=== PATIENT | female | born 1955 | race Caucasian/White ===

== ENCOUNTER 2023-07-05 22:54 | Inpatient (IN) | payer MEDICARE, OTHER, SELFPAY ==
[2023-07-05] VITALS (7 sets, daily range): BP systolic 102–132; BP diastolic 47–106; BMI 45.6
[2023-07-05 18:09] LABS: % Basophils 1.3 % (0-2); % Immature Granulocytes 0.4 % (0-0.5); % Lymphocytes 20.6 % (20.5-51.1); % Monocytes 7.7 % (1.7-9.3); Absolute Basophils 0.1 10^3/uL (0-0.2); Absolute Eosinophils 0.1 10^3/uL (0-0.7); Absolute Lymphocytes 1.6 10^3/uL (1.2-3.4); Absolute Monocytes 0.6 10^3/uL (0.1-0.6); Absolute Neutrophils 5.3 10^3/uL (1.4-6.5); Hematocrit 46.3 % (37.0-47.0); Hemoglobin 15.1 g/dL (12.0-16.0); Mean Corp Hgb Conc. 32.6 g/dL (33.0-37.0); Mean Corpuscular Hgb 30.7 pg (27.0-31.0); Mean Corpuscular Volume 94.1 fL (81.0-99.0); Mean Platelet Volume 9.9 fL (7.4-10.4); Nucleated Red Blood Cells % 0 %; Platelet Count 384 10^3/uL (130-400); Red Blood Cell Count 4.92 10^6/uL (4.20-5.40); Red Cell Dist. Width 16.8 % (11.5-14.5); White Blood Cell Count 7.8 10^3/uL (4.8-10.8)
[2023-07-05 18:40] LABS: COVID-19 Antigen Negative (Negative)
[2023-07-05 19:38] LABS: NT-proBNP 7880 pg/ml; Troponin I < 0.012 ng/ml
[2023-07-05 20:18] LABS: ALT (SGPT) 17 U/L (0-35); AST (SGOT) 26 U/L (14-36); Albumin 3.6 g/dl (3.5-5.0); Alkaline Phosphatase 107 U/L (38-126); Blood Urea Nitrogen 26 mg/dl (7-17); Calcium 9.2 mg/dl (8.4-10.2); Carbon Dioxide 27 mmol/L (22-30); Chloride 96 mmol/L (98-107); Estimated Creatinine Clearance 73 ml/min; Glucose 96 mg/dl (70-99); Potassium 2.7 mmol/L (3.5-5.1); Sodium 132 mmol/L (135-145); Total Bilirubin 1.9 mg/dl (0.2-1.3); Total Protein 7.6 g/dl (6.3-8.2); eGFR > 60.00
--- NOTE | 2023-07-05 20:19 | ED.GENMED ---
History of Present Illness
General
Chief Complaint: Blood Pressure Problem
Time Seen by Provider: 07/05/23 17:29
Travel History
Have you had any contact with someone who has COVID-19?: No
Do you have any symptoms of coronavirus? Fever > 100 degrees, chills, cough, shortness of breath, sore throat, loss of taste or smell, muscle aches, or headache?: No
History of Present Illness
History of Present Illness:
68-year-old female with history of A-fib, mitral stenosis, HFpEF, hypertension, hyperlipidemia, and sick sinus syndrome status post pacemaker placement presents to the emergency department for evaluation of general malaise and overall weakness. She
states she began to feel weak over the weekend, this worsened after taking a dose of metolazone on Wednesday at the direction of her human resources operations director. She notes that she apparently used to be on a total of 160 mg of furosemide daily, at some point last
month this was decreased to 80 mg daily and she was provided with metolazone to use on a as needed basis due to weight gain. After use of metolazone she reported a rapid 10 pound weight loss. She does report ongoing fatigue and shortness of
breath. Initial BP for EMS was in the 60s, improved with gentle IV fluid resuscitation. On arrival the patient's blood pressures have improved however she is noted to be hypoxic on room air at 89%.
Past History
Past History
ED Past Medical History: Asthma, Cancer (breast), CHF, CVA (TIA), HTN, Other (RAMY) and Other (mvp)
ED Past Surgical History: Other (gall bladder, lymph nodes left breast)
Social History
Tobacco: Non-smoker
Alcohol: None
Drug: None
Personal: Single
Living: with family
Employment: Not employed
Review of Systems
Review of Systems
Allergies reviewed?: Yes
All Other Systems: ROS reviewed and negative except as documented in HPI and ROS
Phy Exam
Physical Exam
Physical Exam:
GEN: Well appearing, NAD, WDWN
Eyes: PERRLA, EOMs intact, no scleral icterus
HENT: NCAT, oral mucosa moist, no JVD
Lungs: CTAB, no wheezes, rales, rhonchi, normal chest wall excursion
Cardiac: RRR, no M/R/G, no peripheral edema. Radial pulses 2+ bilat
Abdomen: Obesity limits exam, soft and nontender
Neuro: AO x 3
MSK: No gross deformity or ecchymosis. No edema.
Skin: No rashes, petechiae. Normal color, no pallor or jaundice.
Psych: Calm, cooperative, proper hygiene
Course
Orders/Labs/Results
Orders:
Orders
07/05/23 17:18
EKG [Electrocardiogram (*1)] Urgent
Reason for Study: Fatigue / Weakness
07/05/23 17:19
EKG- Treatment ONCE
07/05/23 17:40
CR Chest - 2 Views Urgent
Comment:
Reason For Exam: hypoxia
07/05/23 17:55
COVID-19 Antigen Urgent
Source: Nasal Swab
Complete Blood Count/With Diff Urgent
Influenza A+B Rapid Molecular Urgent
ALISTAIR Source: Nasal Swab
Specimen Description:
07/05/23 19:00
NT-proBNP Urgent
Troponin I Urgent
07/05/23 19:29
Comprehensive Metabolic Panel Urgent
07/05/23 20:21
Magnesium Sulfate 2 Gram/50 ml [Magnesium Sulfate] 2 gram in 50 ml IV NOW
Potassium Chloride [KCl] 40 meq PO NOW STA
Potassium Chloride [KCl] 20 meq 0.9% Sodium Chloride 150 ml [Nss] 150 ml IV NOW
Abnormal Lab Results
07/05/23 07/05/23
17:55 19:29
MCHC 32.6 L g/dL
(33.0-37.0)
RDW 16.8 H %
(11.5-14.5)
Sodium 132 L mmol/L
(135-145)
Potassium 2.7 L* mmol/L
(3.5-5.1)
Chloride 96 L mmol/L
(98-107)
BUN 26 H mg/dl
(7-17)
Total Bilirubin 1.9 H mg/dl
(0.2-1.3)
07/05/23 17:55
07/05/23 19:29
Vital Signs
Initial and Last Documented VS:
Initial Vital Signs
Temp Pulse Resp BP Pulse Ox
97.5 F 75 20 125/78 89
07/05/23 17:15 07/05/23 17:15 07/05/23 17:15 07/05/23 17:15 07/05/23 17:15
Last Documented Vital Signs
Temp Pulse Resp BP Pulse Ox
97.5 F 76 23 116/87 93
07/05/23 17:15 07/05/23 19:30 07/05/23 19:30 07/05/23 18:26 07/05/23 19:30
MDM/Problems Addressed
MDM/Problems Addressed:
68-year-old female presenting with general malaise and weakness, noted to be hypotensive on arrival of EMS. Her symptoms are likely on the basis of excess diuresis due to recent metolazone use. Her hypokalemia and mild increase in creatinine would
support this. Chest x-ray shows no evidence for acute CHF, elevated BNP may be more on the basis of acute renal injury but it is reflective of acute CHF however the patient is noted to be mildly hypoxic on room air. Does not sound wet on lung exam
to suggest pulmonary edema. Would hesitate to diuresis patient any further at this juncture. No concern for PE as she is anticoagulated. Will treat with gentle IV fluids and electrolyte repletion, admit to the hospitalist service for further
management
Comment
Comment:
Initial EKG independently interpreted by me shows an atrial paced rhythm at a rate of 65
*Critical Care Note
Total Time (30-74mins, 75-104mins- exclusive of procedures): Not Applicable
ED Attending Note
-
Portions of this chart may have been created with voice recognition software.� Occasional wrong word or��sound alike� substitutions may have occurred due to the inherent limitations of voice recognition software.
Discharge Plan
Departure
Patient Disposition: Admit
Date of Disposition: 07/05/23
Time of Disposition: 20:23
Admit to: Telemetry
Presentation/result/management discussed w/ accepting MD/DO: Hospitalist
Discharge Problem:
Acute hypokalemia, Diuresis excessive
Prescriptions:
No Action
montelukast 10 mg Tablet
10 mg PO DAILY
Eliquis 5 mg Tablet
5 mg PO BID Qty: 60 0RF
furosemide [Lasix] 80 mg tablet
80 mg PO DAILY
potassium chloride [Klor-Con M20] 20 mEq tablet,ER particles/crystals
20 meq PO BID
polyvinyl alcohol 1.4 % Drops
1 drp BOTH EYES BIDPRN PRN (Reason: dryness)
rosuvastatin 20 mg Tablet
20 mg PO HS
metoprolol succinate [Toprol XL] 50 mg tablet extended release 24 hr
50 mg PO BID
docusate sodium [Colace] 100 mg Capsule
100 mg PO DAILY
fluticasone propion-salmeterol [Wixela Inhub] 250-50 mcg/dose Blister With Device
2 inh INHALATION R BIDPRN PRN (Reason: SOB)
spironolactone [Aldactone] 25 mg Tablet
25 mg PO DAILY
omeprazole 20 mg Capsule,Delayed Release(Dr/Ec)
20 mg PO DAILY
dofetilide 250 mcg Capsule
250 mcg PO Q12H Qty: 180 3RF
metolazone 5 mg Tablet
5 mg PO DAILY PRN (Reason: edema)
Theragen Tablet
1 tab PO DAILY Qty: 0
amiodarone 200 mg tablet
200 mg PO DAILY
Referrals:
Qiana Rodriguez MD [Family Provider] -
Interventions
Interventions:
*Risk Screen - Suicide Last Done: 07/05/23 17:15
*General Assessment Last Done: 07/05/23 17:15
*Neglect/Abuse Screening Last Done: 07/05/23 17:15
ED- Cardiac Assessment Last Done: 07/05/23 17:28
ED- Neurological Assessment Last Done: 07/05/23 17:28
ED- Pulmonary Assessment Last Done: 07/05/23 17:28
[2023-07-05] MEDS: KCL 40 MEQ PO (21:02)
[2023-07-05] MEDS: MAGNESIUM SULFATE 50 IV (21:02)
--- NOTE | 2023-07-05 21:21 | HPS.HSE ---
Family Physician
-
Family Physician: Qiana Rodriguez
Chief Complaint
-
Weakness
History of Present Illness
Patient is a 68y F with PMH significant for A-Fib, CHFpEF, SSS and obesity who presents to ED complaining of generalized weakness and fatigue. Patient states that she 'just hasn't felt well' for about one week. Patient notes that she took a
dose of metolazone last weekend and lost 18 lbs. She gained 'maybe a few pounds' during the week and then took another dose of metolazone on Wednesday evening. She has since lost 10 additional pounds. She complains of generalized weakness,
fatigue, poor appetite and malaise. She denies any chest pain, dyspnea, fevers or chills. She denies any LE edema or abdominal distention.
Patient states that she has paroxysmal atrial fibrillation and notes that she does not tolerate being in A-Fib very well. Her current symptoms are similar to those she has had in the past with A-Fib.
Medical History
Past Medical History
Past Medical History: Reports Other
Additional Past Medical History:
Persistent atrial fibrillation
Chronic HFpEF
Hypertension.
Nonrheumatic mitral valve stenosis.
Dyslipidemia.
1st Degree AV block.
ASCVD / CVA, 1988, without residual deficits.
Allergic asthma.
Obstructive sleep apnea, non-compliant with CPAP.
GERD / Peptic ulcer disease.
Colon polyps.
Nephrolithiasis.
Ambulatory dysfunction.
Left breast cancer, 2010, status post left lumpectomy and axillary node dissection, chemotherapy, and radiation.
Skin cancer, status post multiple excisions.
Anxiety / Depression / PTSD
Morbid obesity, status post gastric banding
Past Surgical History: Reports Other
Additional Past Surgical History:
Atrial fibrillation ablation x2
Cardioversion x2
Cardiac catheterization
Gastric banding
.
Cholecystectomy.
Hernia repair.
Left breast lumpectomy and axillary lymph node dissection.
Tonsillectomy
Social History
Tobacco: Former Smoker (She is a former 1 pack per day cigarette smoker who quit tobacco products altogether in her late 20's. )
Alcohol: None
Drug: None
Family History
Family History: Not pertinent
Allergies / Home Medications
Allergies reflects when Allergies were last updated in [email or web address].
Home Medications with original date entered in [email or web address]
Allergy/Medication List:
Allergies
Allergy/AdvReac Type Severity Reaction Status Date / Time
codeine AdvReac Severe 'loopy' Verified 05/27/23 12:28
Home Medications
montelukast 10 mg tablet 10 mg PO DAILY Lung/breathing issues 06/23/22
apixaban 5 mg tablet (Eliquis) 5 mg PO BID #60 tabs 07/01/22
furosemide 80 mg tablet (Lasix) 80 mg PO DAILY Fluid retention/Swelling 09/23/22
potassium chloride 20 mEq tablet,extended release(part/cryst) (Klor-Con M) 20 meq PO BID Supplement 10/19/22
metoprolol succinate 50 mg tablet,extended release 24 hr (Toprol XL) 50 mg PO BID Heart Disease/Condition 02/17/23
polyvinyl alcohol 1.4 % eye drops 1 drp BOTH EYES BIDPRN PRN dryness 02/17/23
rosuvastatin 20 mg tablet 20 mg PO HS High Cholesterol 02/17/23
docusate sodium 100 mg capsule (Colace) 100 mg PO DAILY Constipation 02/18/23
fluticasone 250 mcg-salmeterol 50 mcg/dose blistr powdr for inhalation (Wixela Inhub) 2 inh inhalation R BIDPRN PRN SOB 02/22/23
omeprazole 20 mg capsule,delayed release 20 mg PO DAILY Gastrointestinal Issue 02/22/23
spironolactone 25 mg tablet (Aldactone) 25 mg PO DAILY Fluid Retention/Swelling 02/22/23
dofetilide 250 mcg capsule 250 mcg PO Q12H #180 caps 02/26/23
metolazone 5 mg tablet 5 mg PO DAILY PRN edema 04/16/23
therapeutic multivitamin 1 tab PO DAILY Supplement ##0 04/16/23
amiodarone 200 mg tablet 200 mg PO DAILY Heart Disease/Condition 05/27/23
Review of Systems
-
History Source: Patient
A 12 point ROS was completed and negative except as noted: Yes
Constitutional: Reports Weight Loss and Fatigue; Denies Fever or Chills
EENT: Denies Sore Throat
Respiratory: Denies Cough or Trouble Breathing
Cardiac: Denies Chest Pain or Palpitations
Abdomen/GI: Denies Abdominal Pain, Nausea, Vomiting or Diarrhea
: Reports Frequency; Denies Dysuria or Flank Pain
Neurological: Denies Dizzy or Headache
Psych: Denies Depression or Anxiety
Physical Exam
Vital Signs
Vital Signs
Temp Pulse Resp BP Pulse Ox
97.5 F 76 23 116/87 93
07/05/23 17:15 07/05/23 19:30 07/05/23 19:30 07/05/23 18:26 07/05/23 19:30
Physical Exam
General: Other (68y F in no acute distress.)
HEENT: Moist mucous membranes and PERRLA
Respiratory: Clear; No Wheezes, Rales or Rhonchi
Cardiac: S1/S2, Irregular Rhythm and Murmur (II/ GENNA)
GI: Soft, Non Tender, Non Distended and Normal Bowel Sounds
Musculoskeletal: No Clubbing, No Cyanosis and No Edema
Neuro: AO x 3
Laboratory Results
-
07/05/23 17:55
07/05/23 19:29
Laboratory Results
Total Bilirubin 1.9 mg/dl (0.2-1.3) H 07/05/23 19:29
AST 26 U/L (14-36) 07/05/23 19:29
ALT 17 U/L (0-35) 07/05/23 19:29
Alkaline Phosphatase 107 U/L (38-126) 07/05/23 19:29
Troponin I < 0.012 ng/ml 07/05/23 19:00
Impression/Plan
-
A/P: Patient is a 68y F with PMH significant for paroxysmal A-Fib, CHFpEF and obesity who presents to ED for evaluation of generalized weakness and fatigue.
Generalized Weakness / Fatigue
- Admit for further evaluation and treatment.
- Likely multifactorial secondary to A-Fib and hypokalemia.
- Treat individual issues as noted below.
- PT / OT evaluations.
Hypokalemia
Chronic HFpEF
- Secondary to diuresis / metolazone effect.
- Hold further metolazone.
- Check magnesium and replete if needed.
- Patient appears compensated from CHF perspective.
- Continue usual BID Lasix dosing and spironolactone for now.
- Follow I/Os, daily weights, etc and adjust regimen as needed.
- Cardiology evaluation for med adjustments.
Paroxysmal Atrial Fibrillation
- Patient with intermittently paced rhythm in the ED.
- States that she has had similar symptoms with A-Fib in the past and that she does not tolerate being in A-Fib very well.
- History of multiple cardioversions and ablation attempts without lasting success.
- Med regimen is unclear as patient has Tikosyn and Amiodarone on her active med list.
- Hold Amio for now.
- Continue Tikosyn. Continue metoprolol.
- Cardiology evaluation as noted above.
- Monitor on telemetry.
- Continue Eliquis for stroke risk reduction.
COPD without Acute Exacerbation
RAMY
- Stable. Continue inhaled corticosteroid. Nebs PRN.
- Patient does not use PAP therapy chronically.
- Monitor for nocturnal desaturations and consider trial of nightly PAP therapy while here if tolerated.
GERD
- Stable. Continue PPI.
Morbid Obesity due to excess calories
- Affects all aspects of care.
- Encourage healthy diet and increased activity as tolerated with goal of weight loss.
DVT Prophylaxis: On Eliquis.
Code Status: DNR
[2023-07-05] MEDS: KCL 160 MEQ IV (21:42)
[2023-07-05 21:57] LABS: Magnesium 1.8 mg/dl (1.6-2.3)
--- NOTE | 2023-07-05 23:30 | EDRN ---
This RN received this patient at 2315.
[2023-07-06] VITALS (8 sets, daily range): BP systolic 84–118; BP diastolic 55–81; BMI 45.6
[2023-07-06] MEDS: TIKOSYN 250 MCG PO ×3 (02:31→21:07)
[2023-07-06] MEDS: CRESTOR 20 MG PO ×2 (02:32→20:58)
[2023-07-06 04:55] LABS: Hemoglobin 14.8 g/dL (12.0-16.0); Mean Corp Hgb Conc. 32.9 g/dL (33.0-37.0); Mean Corpuscular Hgb 30.7 pg (27.0-31.0); Mean Corpuscular Volume 93.4 fL (81.0-99.0); Mean Platelet Volume 9.5 fL (7.4-10.4); Platelet Count 355 10^3/uL (130-400); Red Blood Cell Count 4.82 10^6/uL (4.20-5.40); Red Cell Dist. Width 16.6 % (11.5-14.5); White Blood Cell Count 7.7 10^3/uL (4.8-10.8)
[2023-07-06 05:19] LABS: Blood Urea Nitrogen 29 mg/dl (7-17); Carbon Dioxide 29 mmol/L (22-30); Chloride 99 mmol/L (98-107); Estimated Creatinine Clearance 66 ml/min; Glucose 104 mg/dl (70-99); Magnesium 2.2 mg/dl (1.6-2.3); Potassium 3.3 mmol/L (3.5-5.1); Sodium 133 mmol/L (135-145); eGFR 54.39
[2023-07-06 05:49] LABS: TSH Reflex To Free T4 3.26 uIU/ml (0.47-4.68)
[2023-07-06] MEDS: PROTONIX 40 MG PO (07:57)
[2023-07-06] MEDS: ALDACTONE 25 MG PO (07:58)
[2023-07-06] MEDS: LASIX 80 MG PO ×2 (07:58→16:02)
[2023-07-06] MEDS: ELIQUIS 5 MG PO ×2 (07:59→20:55)
[2023-07-06] MEDS: SINGULAIR 10 MG PO (07:59)
--- NOTE | 2023-07-06 07:59 | W.PN.CD ---
Today's Communication / Plan
-
Impression / Plan
-
Impression: 68F with symptomatic hypokalemia.
PMH: Persistent A fib on Eliquis, s/p PVI 09/22/22, repeat PVI and AT/Afl ablation 02/2023, with recurrence and now on Tikosyn, then MDT dual chamber PPM, chronic HFpEF, moderate mitral stenosis, mild , 1st degree AVB, IVCD, HTN, abnormal EKG, CVA
in 1988, left breast cancer 2010 s/p chemo, surgery, and radiation, chronic PIERCE, morbid obesity, and lymphedema.
Plan:
Hypokalemia, iatrogenic
- Replete K
- Going forward, she will need to increase potassium when she takes metolazone. At baseline, she takes 20 BID -> perhaps 60 BID.
- Feels better with K given in ED
Persistent AF
- she is NOT on amiodarone.
- continue dofetilide and apixaban
- Initial ED EKG was AP, but now its AF
HFpEF
- She doesn't know her goal weight but, instead, follows the trend
- Hold metolazone. Resume Lasix when K better
- on spironolactone. Defer SLGT2i to primary associate professor of psychology.
PPM
Moderate MS
Remote Stroke
Prior Breast cancer
Obesity
Lymphedema
Subjective:Dictated
LIZZY (07/22/22): EF 50-55%, moderate MS (mean grad 4-5, 3D area 1.45), mild MR, mild , nl RV, mild TR
Physical Exam
Vital Signs/Labs
Vital Signs
Temp Pulse Resp BP Pulse Ox
36.4 C 78 29 94/81 94
07/05/23 17:15 07/06/23 00:36 07/06/23 00:36 07/06/23 00:36 07/06/23 02:12
07/05/23 07/06/23 07/07/23
06:59 06:59 06:59
Actual Weight 282 lb 3.067 oz 282 lb 3.067 oz
07/06/23 04:46
07/06/23 04:46
Magnesium 2.2 mg/dl (1.6-2.3) 07/06/23 04:46
07/05/23 07/05/23 07/05/23
17:55 18:29 19:00
Rlc-Y-Lypciyqbqkq Pept Cancelled Cancelled 7880
LAB Results
07/05/23 07/05/23 07/05/23
17:55 18:29 19:00
Troponin I Cancelled Cancelled < 0.012
Data Reviewed
-
Date of Service: July 06, 2023
[2023-07-06] MEDS: PULMICORT 0.5 MG INH ×2 (08:18→19:08)
--- NOTE | 2023-07-06 09:14 | VNURNOTE ---
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
[2023-07-06] MEDS: KCL 40 MEQ PO ×2 (09:28→20:56)
[2023-07-06] MEDS: TOPROL XL 50 MG PO (09:29)
[2023-07-06] MEDS: TIKOSYN PO (11:40)
--- NOTE | 2023-07-06 13:35 | W.PN.HOSP.TC ---
Today's Communication/Plan
-
K repletion
hold metolazone
Assessment / Plan
Assessment / Plan
Physical Exam
General: Other (68y F in no acute distress.)
HEENT: Moist mucous membranes and PERRLA
Respiratory: Clear; No Wheezes, Rales or Rhonchi
Cardiac: S1/S2, Irregular Rhythm and Murmur (II/ GENNA)
GI: Soft, Non Tender, Non Distended and Normal Bowel Sounds
Musculoskeletal: No Clubbing, No Cyanosis and No Edema
Neuro: AO x 3
A/P:� Patient is a 68y F with PMH significant for paroxysmal A-Fib, CHFpEF and obesity who presents to ED for evaluation of generalized weakness and fatigue.
Generalized Weakness / Fatigue
�- Admit for further evaluation and treatment.
�- Likely multifactorial secondary to A-Fib and hypokalemia.
�- Treat individual issues as noted below.
�- PT / OT evaluations.
Hypokalemia
Chronic HFpEF
�- Secondary to diuresis / metolazone effect.
�- Hold further metolazone.
�- Check magnesium and replete if needed.
�- Cards following
-adjusting K as needed, especially with metolazone
Paroxysmal Atrial Fibrillation
�- Patient with intermittently paced rhythm in the ED.
�- History of multiple cardioversions and ablation attempts without lasting success.
�-Not on Amio
�- Continue Tikosyn.� Continue metoprolol.
�- Continue Eliquis for stroke risk reduction.
COPD without Acute Exacerbation
RAMY
�- Stable.� Continue inhaled corticosteroid.� Nebs PRN.
�- Patient does not use PAP therapy chronically.
�- Monitor for nocturnal desaturations and consider trial of nightly PAP therapy while here if tolerated.
GERD
�- Stable.� Continue PPI.
Morbid Obesity due to excess calories
�- Affects all aspects of care.
�- Encourage healthy diet and increased activity as tolerated with goal of weight loss.
DVT Prophylaxis:� On Eliquis.
Code Status: DNR
Anticipated Discharge: Within 24 hours
Subjective/Interval History
-
Date of Service: July 06, 2023
no acute events
Objective Data
-
Labs:
Laboratory Results
07/06/23
04:46
WBC 7.7
Hgb 14.8
Hct 45.0
Plt Count 355
Sodium 133 L
Potassium 3.3 L
Chloride 99
Carbon Dioxide 29
BUN 29 H
Creatinine 1.1 H
Glucose 104 H
Calcium 9.0
Vital Signs:
Vital Signs
Temp Pulse Resp BP Pulse Ox
97.5 F 85 17 118/73 97
07/06/23 13:28 07/06/23 13:28 07/06/23 13:28 07/06/23 13:28 07/06/23 13:28
I&O
07/05/23 07/06/23 07/07/23
06:59 06:59 06:59
Intake Total 540 / 540
Balance 540 / 540
Review of Systems
-
History Source: Patient
All other systems: Not reviewed unless documented
Physical Exam
-
General: No Apparent Distress
HEENT: Moist Mucous Membranes
GI: Soft and Nontender
Neuro: AO x 3
Psych: Calm
Data Reviewed
-
Diagnostic Radiology: Image personally visualized and interpreted and Report Reviewed by me
Labs: Labs Reviewed by me
--- NOTE | 2023-07-06 21:00 | PTCARENOTE ---
@2054;Instructed Laney HAINES, via TT, pt's BP= 90/58 w/ HR= 95. Instructed by ZAKI Davison to hold Lopressor but give Tikosyn.Tikosyn administered.
[2023-07-06] MEDS: TOPROL XL PO (21:07)
--- NOTE | 2023-07-07 01:00 | PTCARENOTE ---
@0033;Instructed ZAKI Abad,via TT,on pt's BP= 85/55 , HR=92 AND RESP= 16. Pt asymptomatic.Will monitor 0400 V/S.
[2023-07-07 03:20] VITALS: BP 100/68
[2023-07-07] MEDS: TYLENOL 650 MG PO (03:50)
[2023-07-07 06:43] LABS: Blood Urea Nitrogen 33 mg/dl (7-17); Calcium 9.4 mg/dl (8.4-10.2); Carbon Dioxide 31 mmol/L (22-30); Chloride 96 mmol/L (98-107); Estimated Creatinine Clearance 91 ml/min; Glucose 140 mg/dl (70-99); Potassium 3.1 mmol/L (3.5-5.1); Sodium 137 mmol/L (135-145); eGFR > 60.00
[2023-07-07 07:38] VITALS: BP 82/53
[2023-07-07] MEDS: PULMICORT 0.5 MG INH ×2 (08:19→21:15)
[2023-07-07] MEDS: DUONEB 3 ML INH (08:19)
[2023-07-07] MEDS: PROTONIX 40 MG PO (09:47)
[2023-07-07] MEDS: SINGULAIR 10 MG PO (09:47)
[2023-07-07] MEDS: ALDACTONE PO (09:48)
[2023-07-07] MEDS: LASIX PO (09:50)
[2023-07-07] MEDS: TIKOSYN 250 MCG PO ×2 (09:50→21:03)
[2023-07-07] MEDS: TOPROL XL PO (09:58)
[2023-07-07] MEDS: ELIQUIS 5 MG PO ×2 (09:58→21:03)
[2023-07-07] MEDS: KCL ELIXIR 40 MEQ PO (10:02)
[2023-07-07] MEDS: KCL PO (10:17)
--- NOTE | 2023-07-07 10:21 | PN.CDI ---
CDI
- -
CDI:
Physician Documentation Request
Admit Date: 07/05/23 22:54
Dear Doctor Macey,
Patient admitted with hypokalemia.
Na levels documented below:
Laboratory Tests
07/05/23 07/06/23
19:29 04:46
Sodium 132 L 133 L
Based on the above, please clarify in the progress notes, the appropriate diagnosis, if significant, that supports the above abnormalities and additional evaluation, monitoring and/or treatment rendered:
Hyponatremia
Insignificant abnormal lab finding
Other
Use of terms such as suspected, likely, concern for, or probable (associated with a specific diagnosis that is being evaluated, monitored, or treated as if it exists) are acceptable and can be coded in the inpatient setting, when documented at the
time of discharge.
Thank you,
Jeana BOYLEN,RN,CCDS
CDI Specialist
Available via [facility] [facility] text
Please use your independent medical judgment in providing your response.
[2023-07-07 10:30] VITALS: BMI 44.1
--- NOTE | 2023-07-07 10:53 | W.PN.CD ---
Today's Communication / Plan
-
- NPO after midnight
- DCCV in AM
- Reprogram PPM when in lab for DCCV
Impression / Plan
-
Impression: 68F with symptomatic hypokalemia.
PMH: Persistent A fib on Eliquis, s/p PVI 09/22/22, repeat PVI and AT/Afl ablation 02/2023, with recurrence and now on Tikosyn, then MDT dual chamber PPM, chronic HFpEF, moderate mitral stenosis, mild , 1st degree AVB, IVCD, HTN, abnormal EKG, CVA
in 1988, left breast cancer 2011 s/p chemo, surgery, and radiation, chronic PIERCE, morbid obesity, and lymphedema.
Plan:
Hypokalemia, iatrogenic
- Replete K - still low.
- Going forward, she will need to increase potassium when she takes metolazone. At baseline, she takes 20 BID -> perhaps 60 BID.
- Feels better now.
Persistent AF
- she is NOT on amiodarone.
- On low dose dofetilide - 250 mcg - small dose for her weight. QTc is borderline long. Would check QTc in sinus in AM
- Plan for DCCV in AM. If long QTc noted then will stop Tikosyn and start Amiodarone.
- On apixaban - uninterrupted.
- Severe hypok and electrolytes movements might have pushed her into AF.
- Plan for CV if K is > 3.5.
HFpEF
- She doesn't know her goal weight but, instead, follows the trend
- Hold metolazone. Resume Lasix when K better
- on spironolactone. Defer SLGT2i to primary terminal press operator.
Hypotension
- Holding norvasc, metoprolol, lasix and aldactone for now
- Resume Aldactone rose with K is low.
- Next to resume would be Metoprolol.
PPM
- Presented in atrial paced rhythm
- will increase the atrial rate from 60 to 75 bpm to promote more atrial pacing and limit AF
- Low rates were chosen to have Tikosyn maximal effect.
Moderate MS
Remote Stroke
Prior Breast cancer
Obesity
Lymphedema
Subjective:
Feeling better now
LIZZY (07/22/22): EF 50-55%, moderate MS (mean grad 4-5, 3D area 1.45), mild MR, mild , nl RV, mild TR
Physical Exam
Vital Signs/Labs
Vital Signs
Temp Pulse Resp BP Pulse Ox
98.1 F 100 16 82/56 98
07/07/23 07:38 07/07/23 08:20 07/07/23 08:20 07/07/23 09:58 07/07/23 08:20
07/06/23 07/07/23 07/08/23
06:59 06:59 06:59
Actual Weight 128 kg 128 kg
07/06/23 04:46
07/07/23 06:08
Magnesium 2.2 mg/dl (1.6-2.3) 07/06/23 04:46
07/05/23 07/05/23 07/05/23
17:55 18:29 19:00
Fgu-K-Nhgqmfjshcr Pept Cancelled Cancelled 7880
LAB Results
07/05/23 07/05/23 07/05/23
17:55 18:29 19:00
Troponin I Cancelled Cancelled < 0.012
Physical Exam
Constitutional: No acute distress and Comfortable
EENT: Anicteric and Moist mucous membranes
Cardiovascular: JVD pressure is normal, Rhythm/rate is irregular, Pedal edema present and Systolic murmur present
Respiratory: Respiratory effort normal, Wheeze Absent and Crackles Absent
GI: Soft, Non tender and Normal bowel sounds
Neuro/Psych: Alert, Oriented and AO x 3
Other: Cardiac Device Site
Data Reviewed
-
Date of Service: July 07, 2023
Medical Decision Making: Reviewed Test Results and Independent Historian Assessment
EKG: Tracing Personally Visualized and interpreted
Echo: Report Reviewed by me
Labs: Labs Reviewed by me
Old Records: Reviewed
[2023-07-07 11:13] VITALS: BP 87/54
[2023-07-07] MEDS: KCL 40 MEQ PO ×3 (12:19→21:05)
--- NOTE | 2023-07-07 13:08 | CM ---
Reviewed chart, patient's friend, Elan (listed on chart) called and provided information for assessment. Patient's friend stated that patient lives alone in a single home in [facility]. Her house is all one level. She has one step to enter
and ramp access. She uses a walker for short distances and a scooter for longer distances out in the community.
Patient does have some difficulty with bathing, dressing and other ADLs, however Elan stated that patient has a few good neighbors who come throughout the day to assist with her personal care as well as cooking, cleaning, laundry. She gets her
groceries delivered.
Patient can drive but if not up for driving uses a Ride share or neighbors take her to the store or to her appointments.
She hasn't had to go to SNF. She has had VN services in the past through .
Patient has a prescription plan and uses [facility] in [place] for all of her medications.
Her PCP is Dt. Qiana Flores.
Patient has not participated in PT/OT as of yet. Will defer to medical staff for post acute care indication once she can be evaluated.
Patient's friend requested that he be able to obtain patient's medical records, as it is helpful for him to know what happened during the hospitalization so that he can help her with her medications and care. Provided patient's friend with the
number to medical records so that he can determine the protocol for being able to acquire what he needs.
Plan: Case management will continue to follow and assist with discharge planning. Tentative home if patient at baseline.
--- NOTE | 2023-07-07 14:21 | W.PN.HOSP.TC ---
Today's Communication/Plan
-
DCCV tomorrow AM
switch to PO lasix daily
hold norvasc
Assessment / Plan
Assessment / Plan
Physical Exam
General: Other (68y F in no acute distress.)
HEENT: Moist mucous membranes and PERRLA
Respiratory: Clear; No Wheezes, Rales or Rhonchi
Cardiac: S1/S2, Irregular Rhythm and Murmur (II/ GENNA)
GI: Soft, Non Tender, Non Distended and Normal Bowel Sounds
Musculoskeletal: No Clubbing, No Cyanosis and No Edema
Neuro: AO x 3
A/P:� Patient is a 68y F with PMH significant for paroxysmal A-Fib, CHFpEF and obesity who presents to ED for evaluation of generalized weakness and fatigue.
Generalized Weakness / Fatigue
�- Admit for further evaluation and treatment.
�- Likely multifactorial secondary to A-Fib and hypokalemia.
�- Treat individual issues as noted below.
�- PT / OT evaluations.
Hypokalemia
Chronic HFpEF
�- Secondary to diuresis / metolazone effect.
�- Hold further metolazone.
�- Check magnesium and replete if needed.
�- Cards following
-adjusting K as needed, especially with metolazone
� Adjust to 40 mg p.o. Lasix 3 times daily, continue to monitor
Paroxysmal Atrial Fibrillation
�- Patient with intermittently paced rhythm in the ED.
�- History of multiple cardioversions and ablation attempts without lasting success.
�-Not on Amio
-�Plan for DCCV in AM. If long QTc noted then will stop Tikosyn and start Amiodarone.
�- Continue Tikosyn.� Continue metoprolol.
�- Continue Eliquis for stroke risk reduction.
COPD without Acute Exacerbation
RAMY
�- Stable.� Continue inhaled corticosteroid.� Nebs PRN.
�- Patient does not use PAP therapy chronically.
�- Monitor for nocturnal desaturations and consider trial of nightly PAP therapy while here if tolerated.
Hypotension
-hold norvasc,
-cont aldactone with low potassium
-Switch to lasix daily as her home regimen, ctm
GERD
�- Stable.� Continue PPI.
Morbid Obesity due to excess calories
�- Affects all aspects of care.
�- Encourage healthy diet and increased activity as tolerated with goal of weight loss.
DVT Prophylaxis:� On Eliquis.
Code Status: DNR
Anticipated Discharge: 24 - 48 hours
Subjective/Interval History
-
Date of Service: July 07, 2023
Feels better
Objective Data
-
Labs:
Laboratory Results
07/07/23
06:08
Sodium 137
Potassium 3.1 L
Chloride 96 L
Carbon Dioxide 31 H
BUN 33 H
Creatinine 0.8
Glucose 140 H
Calcium 9.4
Vital Signs:
Vital Signs
Temp Pulse Resp BP Pulse Ox
97.8 F 99 17 87/54 94
07/07/23 11:13 07/07/23 11:13 07/07/23 11:13 07/07/23 11:13 07/07/23 11:13
I&O
07/06/23 07/07/23 07/08/23
06:59 06:59 06:59
Intake Total 2079 / 2079
Output Total 1250 / 1250
Balance 830 / 830
Review of Systems
-
History Source: Patient
All other systems: Not reviewed unless documented
Data Reviewed
-
Diagnostic Radiology: Image personally visualized and interpreted and Report Reviewed by me
Labs: Labs Reviewed by me
[2023-07-07 15:26] VITALS: BP 89/70
[2023-07-07 20:00] VITALS: BP 106/72
[2023-07-07] MEDS: TOPROL XL 50 MG PO (21:04)
[2023-07-07] MEDS: CRESTOR 20 MG PO (21:06)
[2023-07-07 23:14] VITALS: BP 97/72
[2023-07-08 03:42] VITALS: BP 92/53
[2023-07-08 06:00] VITALS: BMI 44.7
[2023-07-08 06:41] LABS: Hematocrit 45.8 % (37.0-47.0); Hemoglobin 14.5 g/dL (12.0-16.0); Mean Corp Hgb Conc. 31.7 g/dL (33.0-37.0); Mean Corpuscular Hgb 30.7 pg (27.0-31.0); Mean Corpuscular Volume 96.8 fL (81.0-99.0); Mean Platelet Volume 9.3 fL (7.4-10.4); Platelet Count 390 10^3/uL (130-400); Red Blood Cell Count 4.73 10^6/uL (4.20-5.40); Red Cell Dist. Width 16.4 % (11.5-14.5); White Blood Cell Count 7.6 10^3/uL (4.8-10.8)
[2023-07-08 07:00] VITALS: BP 88/57
[2023-07-08 07:16] LABS: Blood Urea Nitrogen 30 mg/dl (7-17); Calcium 9.5 mg/dl (8.4-10.2); Carbon Dioxide 30 mmol/L (22-30); Chloride 100 mmol/L (98-107); Estimated Creatinine Clearance 89 ml/min; Glucose 119 mg/dl (70-99); Potassium 5.2 mmol/L (3.5-5.1); Sodium 138 mmol/L (135-145); eGFR > 60.00
[2023-07-08] MEDS: DUONEB 3 ML INH (07:19)
[2023-07-08] MEDS: PULMICORT 0.5 MG INH ×2 (07:19→19:35)
[2023-07-08] MEDS: ALDACTONE PO (08:02)
[2023-07-08] MEDS: ELIQUIS 5 MG PO ×2 (08:02→20:50)
[2023-07-08] MEDS: TIKOSYN 250 MCG PO ×2 (08:02→20:50)
[2023-07-08] MEDS: SINGULAIR 10 MG PO (08:02)
[2023-07-08] MEDS: PROTONIX 40 MG PO (08:02)
[2023-07-08] MEDS: TOPROL XL PO (08:03)
[2023-07-08 10:42] VITALS: BP 87/54
--- NOTE | 2023-07-08 12:45 | W.PN.CD ---
Today's Communication / Plan
-
- atrial paced rhythm now.
- Atrial pacing change to 70 bpm .
Impression / Plan
-
Impression: 68F with symptomatic hypokalemia.
PMH: Persistent A fib on Eliquis, s/p PVI 09/22/22, repeat PVI and AT/Afl ablation 02/2023, with recurrence and now on Tikosyn, then MDT dual chamber PPM, chronic HFpEF, moderate mitral stenosis, mild , 1st degree AVB, IVCD, HTN, abnormal EKG, CVA
in 1988, left breast cancer 2010 s/p chemo, surgery, and radiation, chronic PIERCE, morbid obesity, and lymphedema.
Plan:
Hypokalemia, iatrogenic
- Repleted K - plan to keep > 4.5
- Going forward, she will need to increase potassium when she takes metolazone. At baseline, she takes 20 BID -> perhaps 60 BID.
- Feels better now.
Persistent AF
- back in sinus rhythm.
- On low dose dofetilide - 250 mcg - small dose for her weight. QTc is borderline long. Would check QTc in sinus in AM
- On apixaban - uninterrupted.
- Severe hypok and electrolytes movements might have pushed her into AF.
-QTc is 458 ms and is acceptable in sinus rhythm
HFpEF
- She doesn't know her goal weight but, instead, follows the trend
- Hold metolazone. Resume Lasix when K better
- on spironolactone. Defer SLGT2i to primary mannequin mounter.
Hypotension
- Holding norvasc, metoprolol, lasix and aldactone for now
- Resume Aldactone when possible.
- Next to resume would be Metoprolol.
PPM
- Presented in atrial paced rhythm
- PPM interrogation today.
- will increase the atrial rate from 60 to 70 bpm to promote more atrial pacing and limit AF
- Low rates were chosen to have Tikosyn maximal effect.
Moderate MS
Remote Stroke
Prior Breast cancer
Obesity
Lymphedema
Subjective:
Feeling better now
LIZZY (07/22/22): EF 50-55%, moderate MS (mean grad 4-5, 3D area 1.45), mild MR, mild , nl RV, mild TR
Physical Exam
Vital Signs/Labs
Vital Signs
Temp Pulse Resp BP Pulse Ox
98.1 F 58 20 87/54 97
07/08/23 10:42 07/08/23 10:42 07/08/23 10:42 07/08/23 10:42 07/08/23 10:42
07/07/23 07/08/23 07/09/23
06:59 06:59 06:59
Actual Weight 128 kg 125.464 kg
07/08/23 06:12
07/08/23 06:12
Magnesium 2.2 mg/dl (1.6-2.3) 07/06/23 04:46
07/05/23 07/05/23 07/05/23
17:55 18:29 19:00
Mwf-E-Evfvjnurchz Pept Cancelled Cancelled [id number]
LAB Results
07/05/23 07/05/23 07/05/23
17:55 18:29 19:00
Troponin I Cancelled Cancelled < 0.012
Physical Exam
Constitutional: No acute distress and Comfortable
EENT: Anicteric and Moist mucous membranes
Cardiovascular: Rhythm & rate is regular, Pedal edema is absent, JVD pressure is normal and Systolic murmur present
Respiratory: Respiratory effort normal, Wheeze Absent and Crackles Absent
GI: Soft, Non tender and Normal bowel sounds
Neuro/Psych: Alert, Oriented, AO x 3 and Motor deficits absent
Data Reviewed
-
Date of Service: July 08, 2023
Medical Decision Making: Reviewed Test Results
EKG: Tracing Personally Visualized and interpreted
Echo: Report Reviewed by me
Labs: Labs Reviewed by me
Old Records: Reviewed
--- NOTE | 2023-07-08 13:40 | W.PN.HOSP.TC ---
Today's Communication/Plan
-
Adjust PO KCL to BID; monitor potassium levels
Continue Diuresis
BMP this afternoon and evening
Continue diuresis
DDCCV today
Assessment / Plan
Assessment / Plan
Physical Exam
General: Other (68y F in no acute distress.)
HEENT: Moist mucous membranes and PERRLA
Respiratory: Clear; No Wheezes, Rales or Rhonchi
Cardiac: S1/S2, Irregular Rhythm and Murmur (II/ GENNA)
GI: Soft, Non Tender, Non Distended and Normal Bowel Sounds
Musculoskeletal: No Clubbing, No Cyanosis and No Edema
Neuro: AO x 3
A/P:� Patient is a 68y F with PMH significant for paroxysmal A-Fib, CHFpEF and obesity who presents to ED for evaluation of generalized weakness and fatigue.
Generalized Weakness / Fatigue
�- Admit for further evaluation and treatment.
�- Likely multifactorial secondary to A-Fib and hypokalemia.
� Improved
�- Treat individual issues as noted below.
�- PT / OT evaluations.
Hypokalemia
Chronic HFpEF
�- Secondary to diuresis / metolazone effect.
�- Hold further metolazone.
�- Check magnesium and replete if needed.
�- Cards following
-adjusting K as needed, especially with metolazone
� Adjust to 40 mg p.o. Lasix BID
Paroxysmal Atrial Fibrillation
�- Patient with intermittently paced rhythm in the ED.
�- History of multiple cardioversions and ablation attempts without lasting success.
�-Not on Amio
-�Plan for DCCV in today. If long QTc noted then will stop Tikosyn and start Amiodarone.
�- Continue Tikosyn.� Continue metoprolol.
�- Continue Eliquis for stroke risk reduction.
COPD without Acute Exacerbation
RAMY
�- Stable.� Continue inhaled corticosteroid.� Nebs PRN.
�- Patient does not use PAP therapy chronically.
�- Monitor for nocturnal desaturations and consider trial of nightly PAP therapy while here if tolerated.
Hypotension
-hold norvasc,
-cont aldactone with low potassium
-Switch to lasix daily as her home regimen, ctm
GERD
�- Stable.� Continue PPI.
Morbid Obesity due to excess calories
�- Affects all aspects of care.
�- Encourage healthy diet and increased activity as tolerated with goal of weight loss.
DVT Prophylaxis:� On Eliquis.
Code Status: DNR
Anticipated Discharge: 24 - 48 hours
Subjective/Interval History
-
Date of Service: July 08, 2023
Plan for cardioversion this morning
Objective Data
-
Labs:
Laboratory Results
07/08/23
06:12
WBC 7.6
Hgb 14.5
Hct 45.8
Plt Count 390
Sodium 138
Potassium 5.2 H D
Chloride 100
Carbon Dioxide 30
BUN 30 H
Creatinine 0.8
Glucose 119 H
Calcium 9.5
Vital Signs:
Vital Signs
Temp Pulse Resp BP Pulse Ox
98.1 F 58 20 87/54 97
07/08/23 10:42 07/08/23 10:42 07/08/23 10:42 07/08/23 10:42 07/08/23 10:42
I&O
07/07/23 07/08/23 07/09/23
06:59 06:59 06:59
Intake Total 2080 / 2080 960 / 960
Output Total 1250 / 1250 550 / 550
Balance 830 / 830 410 / 410
Review of Systems
-
History Source: Patient
All other systems: Not reviewed unless documented
Physical Exam
-
General: No Apparent Distress
HEENT: Moist Mucous Membranes
GI: Soft and Nontender
Neuro: AO x 3
Psych: Calm
Data Reviewed
-
Diagnostic Radiology: Image personally visualized and interpreted and Report Reviewed by me
Labs: Labs Reviewed by me
[2023-07-08 14:51] LABS: Blood Urea Nitrogen 25 mg/dl (7-17); Calcium 9.4 mg/dl (8.4-10.2); Carbon Dioxide 32 mmol/L (22-30); Chloride 101 mmol/L (98-107); Estimated Creatinine Clearance 103 ml/min; Glucose 110 mg/dl (70-99); Potassium 5.1 mmol/L (3.5-5.1); Sodium 136 mmol/L (135-145); eGFR > 60.00
--- NOTE | 2023-07-08 15:02 | PN.CDI ---
CDI
- -
CDI:
Physician Documentation Request
Admit Date: 07/05/23 22:54
Dear Doctor Macey,
Patient admitted with hypokalemia.
PN, 'Paroxysmal Atrial Fibrillation....History of multiple cardioversions and ablation attempts without lasting success.'
Cardiology note, 'Persistent AF.... On Apixaban - uninterrupted.
Due to conflicting documentation, please clarify in your note the type of atrial fibrillation being evaluated, monitored and /or treated:
Paroxysmal atrial fibrillation - terminates spontaneously or with intervention within 7 days of onset
Persistent atrial fibrillation - episodes of continuous AF that last more than 7 days and do not self-terminate
Other
Use of terms such as suspected, likely, concern for, or probable (associated with a specific diagnosis that is being evaluated, monitored, or treated as if it exists) are acceptable and can be coded in the inpatient setting, when documented at the
time of discharge.
Thank you,
Jeana HAMM,RN,CCDS
CDI Specialist
Available via [facility] text
Please use your independent medical judgment in providing your response.
[2023-07-08 15:28] VITALS: BP 87/53
--- NOTE | 2023-07-08 16:53 | PTCARENOTE ---
Pt. continuously having low BPs, bloods pressure meds and diuretics have been held this AM. notified, no new orders. Pt. asymptomatic. Will continue to monitor.
[2023-07-08] MEDS: TYLENOL 650 MG PO (18:04)
[2023-07-08 19:30] VITALS: BP 102/65
[2023-07-08] MEDS: TOPROL XL 50 MG PO (20:50)
[2023-07-08 21:43] LABS: Blood Urea Nitrogen 31 mg/dl (7-17); Calcium 9.3 mg/dl (8.4-10.2); Carbon Dioxide 32 mmol/L (22-30); Chloride 98 mmol/L (98-107); Estimated Creatinine Clearance 103 ml/min; Glucose 117 mg/dl (70-99); Potassium 4.4 mmol/L (3.5-5.1); Sodium 137 mmol/L (135-145); eGFR > 60.00
[2023-07-08] MEDS: CRESTOR 20 MG PO (22:06)
[2023-07-08 23:35] VITALS: BP 104/68
[2023-07-09 03:30] VITALS: BP 125/63
[2023-07-09 06:00] VITALS: BMI 44.5
[2023-07-09 07:00] VITALS: BP 94/63
[2023-07-09 07:18] LABS: Blood Urea Nitrogen 27 mg/dl (7-17); Calcium 9.2 mg/dl (8.4-10.2); Carbon Dioxide 29 mmol/L (22-30); Chloride 102 mmol/L (98-107); Estimated Creatinine Clearance 120 ml/min; Glucose 98 mg/dl (70-99); Potassium 4.4 mmol/L (3.5-5.1); Sodium 135 mmol/L (135-145); eGFR > 60.00
[2023-07-09] MEDS: PULMICORT 0.5 MG INH (07:19)
[2023-07-09] MEDS: DUONEB 3 ML INH (07:19)
[2023-07-09] MEDS: KCL 40 MEQ PO (08:46)
[2023-07-09] MEDS: TYLENOL 650 MG PO (09:00)
[2023-07-09] MEDS: LASIX 80 MG PO (09:01)
[2023-07-09] MEDS: TOPROL XL 50 MG PO (09:02)
[2023-07-09] MEDS: TIKOSYN 250 MCG PO (09:02)
[2023-07-09] MEDS: PROTONIX 40 MG PO (09:02)
[2023-07-09] MEDS: SINGULAIR 10 MG PO (09:02)
[2023-07-09] MEDS: ELIQUIS 5 MG PO (09:02)
[2023-07-09] MEDS: ALDACTONE 25 MG PO (09:02)
--- NOTE | 2023-07-09 10:01 | W.PN.CD ---
Today's Communication / Plan
-
Patient looks better today.
Cardiac meds: lasix 80mg daily, aldactone 25mg daily, Kcl 40 mEq bid, eliquis 5mg bid, tikosyn 250 mcg bid, Toprol XL 50mg bid. Amlodipine stopped.
BMP next week.
We will arrange for outpatient follow up with us. Please call us back with additional questions.
Impression / Plan
-
Impression: 68F with symptomatic hypokalemia.
PMH: Persistent A fib on Eliquis, s/p PVI 09/22/22, repeat PVI and AT/Afl ablation 02/2023, with recurrence and now on Tikosyn, then MDT dual chamber PPM, chronic HFpEF, moderate mitral stenosis, mild , 1st degree AVB, IVCD, HTN, abnormal EKG, CVA
in 1988, left breast cancer 2011 s/p chemo, surgery, and radiation, chronic PIERCE, morbid obesity, and lymphedema.
Plan:
Hypokalemia, iatrogenic
- Repleted K - plan to keep > 4.5
- Going forward, she will need to increase potassium when she takes metolazone. Now on 40mEq bid baseline, and she can increase the AM dose to 80mg if she takes metolazone.
- Feels better now.
Persistent AF
- back in sinus rhythm. Toprol XL 50mg bid.
- On low dose dofetilide - 250 mcg - small dose for her weight. QTc is 480 msec.
- On apixaban 5mg bid
- Severe hypokalemia might have pushed her into AF.
Chronic HFpEF
- She doesn't know her goal weight but, instead, follows the trend--seems dry at 275lb
- back on lasix 80mg daily and Kcl 40 mEq bid
- on spironolactone 25 mg daily
Hypotension
- stopped amlodipine this admission.
PPM
-increased the atrial rate from 60 to 70 bpm to promote more atrial pacing and limit AF
Moderate MS
Remote Stroke
Prior Breast cancer
Obesity
Lymphedema
Subjective:
SOB better.
LIZZY (07/22/22): EF 50-55%, moderate MS (mean grad 4-5, 3D area 1.45), mild MR, mild , nl RV, mild TR
Physical Exam
Vital Signs/Labs
Vital Signs
Temp Pulse Resp BP Pulse Ox
97.4 F 74 18 100/68 97
07/09/23 07:00 07/09/23 09:02 07/09/23 08:03 07/09/23 09:02 07/09/23 08:03
07/08/23 07/09/23 07/10/23
06:59 06:59 06:59
Actual Weight 125.464 kg 125.01 kg
07/08/23 06:12
07/09/23 06:21
Magnesium 2.2 mg/dl (1.6-2.3) 07/06/23 04:46
07/05/23 07/05/23 07/05/23
17:55 18:29 19:00
Qeu-E-Zrjclndbfnd Pept Cancelled Cancelled [id number]
Physical Exam
Constitutional: No acute distress and Comfortable
EENT: Moist mucous membranes
Cardiovascular: Rhythm & rate is regular, Pedal edema is absent, JVD pressure is normal, Systolic murmur present and Diastolic murmur present
Respiratory: Respiratory effort normal and Lungs clear to auscul.
GI: Soft and Distention absent
Neuro/Psych: AO x 3
Data Reviewed
-
Date of Service: July 09, 2023
EKG: Other (Apaced 70)
Labs: Labs Reviewed by me
[2023-07-09 11:00] VITALS: BP 98/56
--- NOTE | 2023-07-09 12:40 | CM ---
Addendum entered by ULISES Urbina 07/09/23 17:27:
Received notification from RN that patient does not have clothes or a ride to get home. Spoke with patient who stated that she can call her friend Taylor to come pick her up. (This was after multiple accounts from RNs stating that she was telling
them she had no ride home). CM confirmed with her x2 and she stated that if Taylor couldn't get her a ride she could find a ride home and denied the need for resources.
Original Note:
Reviewed chart, per PT/OT, patient refusing therapy. Will continue to review notes and echo indication on behalf of medical staff for post acute care.
Plan: Case management will continue to follow and assist with discharge planning. Patient tentative for home.
--- NOTE | 2023-07-09 13:31 | W.PN.HOSP.TC ---
Addendum entered and electronically signed by Souleymane Choudhury MD 07/09/23 17:20:
[id number]
Addendum entered and electronically signed by Souleymane Choudhury MD 07/09/23 16:53:
Persistent atrial fibrillation�
Addendum entered and electronically signed by Souleymane Choudhury MD 07/09/23 16:53:
Hyponatremia
Original Note:
Today's Communication/Plan
-
Going back on Lasix 80 mg daily
Potassium 40 mg twice daily
BMP with cardiology/PCP within 3 to 5 days
Hold metolazone indefinitely unless agreed to with cardiology
Continue spironolactone
Continue Eliquis, Tikosyn, Toprol
Stop amlodipine
Assessment / Plan
Assessment / Plan
Physical Exam
General: Other (68y F in no acute distress.)
HEENT: Moist mucous membranes and PERRLA
Respiratory: Clear; No Wheezes, Rales or Rhonchi
Cardiac: S1/S2, Irregular Rhythm and Murmur (II/ GENNA)
GI: Soft, Non Tender, Non Distended and Normal Bowel Sounds
Musculoskeletal: No Clubbing, No Cyanosis and No Edema
Neuro: AO x 3
A/P:� Patient is a 68y F with PMH significant for paroxysmal A-Fib, CHFpEF and obesity who presents to ED for evaluation of generalized weakness and fatigue.
Generalized Weakness / Fatigue
�- Admit for further evaluation and treatment.
�- Likely multifactorial secondary to A-Fib and hypokalemia.
� Improved
�- Treat individual issues as noted below.
�- PT / OT evaluations.
Hypokalemia
Chronic HFpEF
�- Secondary to diuresis / metolazone effect.
�- Hold further metolazone.
�- Cards following
-adjusting K as needed, especially with metolazone
� Adjust to 80 mg daily, was home dose
� Continue spironolactone 25 mg daily
-Now to continue on adjusted dose of 40mg KCL BID
-F/u BMP in 3-5 days with PCP/Cardiology
Paroxysmal Atrial Fibrillation
�- Patient with intermittently paced rhythm in the ED.
�- History of multiple cardioversions and ablation attempts without lasting success.
�-Not on Amio
-� DCCV ; back in Sinus
�- Continue Tikosyn.� Continue metoprolol.
�- Continue Eliquis for stroke risk reduction.
- Severe hypokalemia may have pushed her into atrial fibrillation
COPD without Acute Exacerbation
RAMY
�- Stable.� Continue inhaled corticosteroid.� Nebs PRN.
�- Patient does not use PAP therapy chronically.
�- Monitor for nocturnal desaturations and consider trial of nightly PAP therapy while here if tolerated.
Hypotension
-Stop amlodipine
-cont aldactone with low potassium
-Switch to lasix daily as her home regimen, ctm
GERD
�- Stable.� Continue PPI.
PPM
--increased the atrial rate from 60 to 70 bpm to promote more atrial pacing and limit AF
Morbid Obesity due to excess calories
�- Affects all aspects of care.
�- Encourage healthy diet and increased activity as tolerated with goal of weight loss.
DVT Prophylaxis:� On Eliquis.
Code Status: DNR
More than 30 minutes spent in discharge including
Final examination of the patient
Summarizing hospital stay
Instructions for continuing care to all relevant caregivers
Preparation of discharge records, prescriptions, and referral forms
Total time spent (35 in minutes):
Anticipated Discharge: Today
Subjective/Interval History
-
Date of Service: July 09, 2023
No acute events, electrolytes stable
Objective Data
-
Labs:
Laboratory Results
07/09/23
06:21
Sodium 135
Potassium 4.4
Chloride 102
Carbon Dioxide 29
BUN 27 H
Creatinine 0.6
Glucose 98
Calcium 9.2
Vital Signs:
Vital Signs
Temp Pulse Resp BP Pulse Ox
98.3 F 70 16 90/56 98
07/09/23 11:00 07/09/23 11:00 07/09/23 11:00 07/09/23 11:00 07/09/23 11:00
I&O
07/08/23 07/09/23 07/10/23
06:59 06:59 06:59
Intake Total 960 / 960 1080 / 1080
Output Total 550 / 550 350 / 350 250 / 250
Balance 410 / 410 730 / 730 -250 / -250
Review of Systems
-
History Source: Patient
All other systems: Not reviewed unless documented
Physical Exam
-
General: No Apparent Distress
HEENT: Moist Mucous Membranes
GI: Soft and Nontender
Neuro: AO x 3
Psych: Calm
Data Reviewed
-
Diagnostic Radiology: Image personally visualized and interpreted and Report Reviewed by me
Labs: Labs Reviewed by me
--- NOTE | 2023-07-09 13:44 | W.DS.TRANS ---
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
-
Discharge Instructions:
Discharge Diagnosis/Procedures
Hypokalemia, iatrogenic
Persistent AF
Generalized Weakness / Fatigue
Diet Low Cholesterol,Low Fat,Restrict fluids to 48 oz
Activity As tolerated
Blood Work bmp in 3-5 days week with cardiology/PCP
Instructions:
Stand-Alone Forms:
Changes to Home Medications: Yes
Discharge Medications:
DC Medications w/original date entered in [facility]
montelukast 10 mg tablet 10 mg PO DAILY Lung/breathing issues 06/23/22
apixaban 5 mg tablet (Eliquis) 5 mg PO BID #60 tabs 07/01/22
furosemide 80 mg tablet (Lasix) 80 mg PO DAILY Fluid retention/Swelling 09/23/22
metoprolol succinate 50 mg tablet,extended release 24 hr (Toprol XL) 50 mg PO BID Heart Disease/Condition 02/17/23
polyvinyl alcohol 1.4 % eye drops 1 drp BOTH EYES BIDPRN PRN dryness 02/17/23
rosuvastatin 20 mg tablet 20 mg PO HS High Cholesterol 02/17/23
docusate sodium 100 mg capsule (Colace) 100 mg PO DAILY Constipation 02/18/23
fluticasone 250 mcg-salmeterol 50 mcg/dose blistr powdr for inhalation (Wixela Inhub) 2 inh inhalation R BIDPRN PRN SOB 02/22/23
omeprazole 20 mg capsule,delayed release 20 mg PO DAILY Gastrointestinal Issue 02/22/23
spironolactone 25 mg tablet (Aldactone) 25 mg PO DAILY Fluid Retention/Swelling 02/22/23
dofetilide 250 mcg capsule 250 mcg PO Q12H #180 caps 02/26/23
therapeutic multivitamin 1 tab PO DAILY Supplement ##0 04/16/23
potassium chloride 20 mEq tablet,extended release(part/cryst) 40 meq PO BID 30 days #120 tabs 07/09/23
Home Medication Changes
potassium chloride 20 mEq tablet,extended release(part/cryst) 40 meq PO BID 30 days #120 tabs 07/09/23
Pending Results: No
[2023-07-09 15:00] VITALS: BP 92/55
--- NOTE | 2023-07-09 15:50 | VNURNOTE ---
[facility] resumption of care completed in [facility] after review of chart and discussion with patient. Patient confirmed having [facility] contact number.
== END 2023-07-09 18:51 | disposition home or self-care (01) | DRG 641 ==
LOC: 3 WEST ACU 22:54
PROVIDERS: Physician Assistant; ADMITTING PHYSICIAN Hospitalist; ATTENDING PHYSICIAN Internal Medicine; EMERGENCY PHYSICIAN Emergency Medicine; FAMILY PHYSICIAN Family Medicine; OTHER PHYSICIAN Internal Medicine Cardiovascular Disease
DX: E87.6 Hypokalemia (principal); I50.32 Chronic diastolic (congestive) heart failure; I48.19 Other persistent atrial fibrillation; Z68.42 Body mass index [BMI] 45.0-49.9, adult; Z11.52 Encounter for screening for COVID-19; E87.1 Hypo-osmolality and hyponatremia; Z87.891 Personal history of nicotine dependence; T50.2X5A Adverse effect of carbonic-anhydrase inhibitors, benzothiadiazides and other diuretics, initial encounter; I11.0 Hypertensive heart disease with heart failure; J44.89 Other specified chronic obstructive pulmonary disease; G47.33 Obstructive sleep apnea (adult) (pediatric); K21.9 Gastro-esophageal reflux disease without esophagitis; E66.01 Morbid (severe) obesity due to excess calories; Z66 Do not resuscitate; I89.0 Lymphedema, not elsewhere classified
CPT/HCPCS: 71046; 80048; 80053; 83735; 83880; 84443; 84484; 85025; 85027; 87070; 87502; 87811; 93005; 94640; 96365; 96366; 99285

== ENCOUNTER 2023-07-16 16:13 | Inpatient (IN) | payer MEDICARE, OTHER, SELFPAY ==
[2023-07-16] VITALS (9 sets, daily range): BP systolic 88–107; BP diastolic 60–84; BMI 46.3; BMI 44.8
--- NOTE | 2023-07-16 13:18 | ED.GENMED ---
History of Present Illness
<Haider Peres PA-C - Last Filed: 07/16/23 16:57>
General
Chief Complaint: Heart Rate Problem
Source: patient and records
Time Seen by Provider: 07/16/23 12:48
Travel History
Have you had any contact with someone who has COVID-19?: No
Do you have any symptoms of coronavirus? Fever > 100 degrees, chills, cough, shortness of breath, sore throat, loss of taste or smell, muscle aches, or headache?: No
History of Present Illness
History of Present Illness:
68-year-old female with past medical history of atrial fibrillation, CHF, hypertension, hyperlipidemia, valvular disease, status post pacemaker placement 6 months ago presenting to the emergency for evaluation after she started to experience
palpitations last night describing it as if something were galloping in her chest, persisted into the morning and associated with fatigue. Patient states that she had a device at home that was able to be transmitted to her cardiology office who
called her and told her that she was in atrial fibrillation and she should come to the ER to be further evaluated. Patient still notes continued palpitations and fatigue but is otherwise denying any chest pain, shortness of breath, diaphoresis,
lower extremity edema, abdominal pain or any other concerns. Patient notes that this feels similar to the last time she was here when they were going to perform a cardioversion but she notes that she spontaneously cardioverted prior to this
procedure.
Past History
<Haider Peres PA-C - Last Filed: 07/16/23 16:57>
Past History
ED Past Medical History: Arrthythmia, Asthma, Cancer (breast), CHF, CVA (TIA), HTN, Other (RAMY) and Other (mvp)
ED Past Surgical History: Cardiac, Cholecystectomy, , Tonsilectomy and Other (gall bladder, lymph nodes left breast)
Social History
Tobacco: Non-smoker
Alcohol: None
Drug: None
Personal: Single
Living: with family
Employment: Not employed
Review of Systems
<Haider Peres PA-C - Last Filed: 07/16/23 16:57>
Review of Systems
All Other Systems: ROS reviewed and negative except as documented in HPI and ROS
Phy Exam
<Haider Peres PA-C - Last Filed: 07/16/23 16:57>
Physical Exam
Physical Exam:
GENERAL: Alert , in no apparent distress
EYE: conjunctiva clear
NECK: Supple
ENT: o/p clr, mmm.
CARDIAC: Tachycardic rate and rhythm, pacemaker right anterior chest wall
LUNGS: Clear breath sounds bilaterally, no acute respiratory distress, no wheezes/rales/rhonchi
NEUROLOGICAL: Alert and oriented
SKIN: Warm and dry, skin intact.
MUSCULOSKELETAL: well perfused. no edema
PSYCH: Normal and appropriate interaction.
Scores
<Haider Peres PA-C - Last Filed: 07/16/23 16:57>
Heart Failure Risk
Heart Failure Risk Score: Not Applicable
Heart Score for Chest Pain Patients
STEMI patient?: Not applicable
Withdrawal Assessment of Alcohol
Withdrawal Assessment Completed?: Not applicable
Course
<Haider Peres PA-C - Last Filed: 07/16/23 16:57>
Orders/Labs/Results
Orders:
Orders
07/16/23 12:49
EKG [Electrocardiogram (*1)] Urgent
Reason for Study: Atrial Fibrillation
EKG- Treatment ONCE
07/16/23 13:03
Diltiazem HCl [Cardizem] 10 mg IV NOW STA
07/16/23 13:10
CMP [Comprehensive Metabolic Panel] Urgent
Complete Blood Count/With Diff Urgent
Magnesium Urgent
TSH Urgent
07/16/23 13:15
Diltiazem 125 mg/125 ml Nss [Cardizem] 125 mg in 125 ml IV PER PROTOCOL
Initial dose in mg/hr, then titrate:: 5
Titrate to keep:: Heart rate 80-100 bpm
Titrate by mg/hr:: 5 mg/hr
Frequency of titrations (minutes):: 15
Maximum dose in mg/hr:: 15
07/16/23 13:24
CT Chest Pe Study Urgent
Comment:
Reason For Exam: tachycardia, recent admit, cancer hx
07/16/23 13:43
Metoprolol [Lopressor] 5 mg IV NOW STA
07/16/23 14:17
NT-proBNP Urgent
07/16/23 14:19
Metoprolol [Lopressor] 5 mg IV NOW STA
07/16/23 14:22
Add On- LAB Urgent
Tests Added?: TSH
07/16/23 15:13
Furosemide [Lasix] 80 mg IV NOW STA
07/16/23 15:32
Admit/Transfer Patient As Directed
Co-Sign Provider:
Level of Care: Inpatient admission
Assign to:: IMU- Intermediate Care
Physician / Group: Reji
Diagnosis: Rapid Afib and acute CHF decompensation
Reason for Hospitalization: see progress note
Expected length of stay greater than two midnights?: Yes
ELOS- Estimated Length of Stay in days: 3
I certify the patient meets the requirements for IP care: Yes
07/16/23 15:33
Code Status As Directed
Resuscitation Status: Full Code
Physician note:: Doesn't want prolonged artificial means of support
Abnormal Lab Results
07/16/23
13:10
MCHC 32.5 L g/dL
(33.0-37.0)
RDW 17.0 H %
(11.5-14.5)
Absolute Lymphs (auto) 1.1 L 10^3/uL
(1.2-3.4)
Neutrophils % 77.0 H %
(42.2-75.2)
Lymphocytes % 14.0 L %
(20.5-51.1)
Sodium 133 L mmol/L
(135-145)
Potassium 5.2 H mmol/L
(3.5-5.1)
Carbon Dioxide 20 L mmol/L
(22-30)
Glucose 130 H mg/dl
(70-99)
Total Bilirubin 2.4 H mg/dl
(0.2-1.3)
07/16/23 13:10
07/16/23 13:10
Vital Signs
Initial and Last Documented VS:
Initial Vital Signs
Temp Pulse Resp BP Pulse Ox
97.7 F 122 21 101/75 93
07/16/23 12:49 07/16/23 12:49 07/16/23 12:49 07/16/23 12:49 07/16/23 12:49
Last Documented Vital Signs
Temp Pulse Resp BP Pulse Ox
97.7 F 121 20 107/83 92
07/16/23 12:49 07/16/23 16:00 07/16/23 16:00 07/16/23 16:00 07/16/23 16:00
<Yulissa Jain MD - Last Filed: 07/16/23 13:50>
Orders/Labs/Results
Orders:
Orders
07/16/23 12:49
EKG [Electrocardiogram (*1)] Urgent
Reason for Study: Atrial Fibrillation
EKG- Treatment ONCE
07/16/23 13:03
Diltiazem HCl [Cardizem] 10 mg IV NOW STA
07/16/23 13:10
CMP [Comprehensive Metabolic Panel] Urgent
Complete Blood Count/With Diff Urgent
Magnesium Urgent
TSH Urgent
07/16/23 13:15
Diltiazem 125 mg/125 ml Nss [Cardizem] 125 mg in 125 ml IV PER PROTOCOL
Initial dose in mg/hr, then titrate:: 5
Titrate to keep:: Heart rate 80-100 bpm
Titrate by mg/hr:: 5 mg/hr
Frequency of titrations (minutes):: 15
Maximum dose in mg/hr:: 15
07/16/23 13:24
CT Chest Pe Study Urgent
Comment:
Reason For Exam: tachycardia, recent admit, cancer hx
07/16/23 13:43
Metoprolol [Lopressor] 5 mg IV NOW STA
07/16/23 14:17
NT-proBNP Urgent
07/16/23 14:19
Metoprolol [Lopressor] 5 mg IV NOW STA
07/16/23 14:22
Add On- LAB Urgent
Tests Added?: TSH
07/16/23 15:13
Furosemide [Lasix] 80 mg IV NOW STA
07/16/23 15:32
Admit/Transfer Patient As Directed
Co-Sign Provider:
Level of Care: Inpatient admission
Assign to:: IMU- Intermediate Care
Physician / Group: Mendoza
Diagnosis: Rapid Afib and acute CHF decompensation
Reason for Hospitalization: see progress note
Expected length of stay greater than two midnights?: Yes
ELOS- Estimated Length of Stay in days: 3
I certify the patient meets the requirements for IP care: Yes
07/16/23 15:33
Code Status As Directed
Resuscitation Status: Full Code
Physician note:: Doesn't want prolonged artificial means of support
Abnormal Lab Results
07/16/23
13:10
MCHC 32.5 L g/dL
(33.0-37.0)
RDW 17.0 H %
(11.5-14.5)
Absolute Lymphs (auto) 1.1 L 10^3/uL
(1.2-3.4)
Neutrophils % 77.0 H %
(42.2-75.2)
Lymphocytes % 14.0 L %
(20.5-51.1)
Sodium 133 L mmol/L
(135-145)
Potassium 5.2 H mmol/L
(3.5-5.1)
Carbon Dioxide 20 L mmol/L
(22-30)
Glucose 130 H mg/dl
(70-99)
Total Bilirubin 2.4 H mg/dl
(0.2-1.3)
07/16/23 13:10
07/16/23 13:10
Vital Signs
Initial and Last Documented VS:
Initial Vital Signs
Temp Pulse Resp BP Pulse Ox
97.7 F 122 21 101/75 93
07/16/23 12:49 07/16/23 12:49 07/16/23 12:49 07/16/23 12:49 07/16/23 12:49
Last Documented Vital Signs
Temp Pulse Resp BP Pulse Ox
97.7 F 121 20 107/83 92
07/16/23 12:49 07/16/23 16:00 07/16/23 16:00 07/16/23 16:00 07/16/23 16:00
<Haider Peres PA-C - Last Filed: 07/16/23 16:57>
MDM/Problems Addressed
Differential Diagnosis Includes:
Cardiac dysrhythmia, valvular disorder, electrolyte disturbance, less concern for ACS
MDM/Problems Addressed:
68-year-old female presenting the emergency department for evaluation at the request of cardiology office after she was reportedly found to be in atrial fibrillation once her pacemaker was reportedly interrogated from a home device. Patient arrives
to the emergency department with a heart rate around 120 bpm. Blood pressure is slightly low at 101/75. Patient is otherwise asymptomatic. Will interrogate patient's pacemaker. Initially I did order Cardizem however this was deferred due to
patient's low blood pressure and eventually after the pacemaker was interrogated patient was found to be in a tachycardic rhythm but no evidence of underlying A-fib or other cardiac dysrhythmias. I added on a CT of the chest to rule out PE given
her tachycardia. Will discuss with cardiology to help determine any further treatment plan.
Chronic conditions affecting care: Arrhythmia
Acute Exacerbation and/or Progression of Chronic Illness: Arrhythmia
<Haider Peres PA-C - Last Filed: 07/16/23 16:57>
*Pulse Oximetry
Patient hypoxic: no
*Gravel Machine Operator Interpretation
Rate: tachycardiac
Rhythm: ventricular paced
*Critical Care Note
Total Time (30-74mins, 75-104mins- exclusive of procedures): Not Applicable
Data Reviewed
Review of Other/Old Records Reveals: Labs, Records and Discharge Summary
Source: patient and records
<Haider Peres PA-C - Last Filed: 07/16/23 16:57>
Patient Management
Discussion with other providers: Hospitalist and Medical Superintendent
Escalation/DeEscalation of care consider admission/obs:
If patient was seen at bedside by cardiology. Fevers atrial tachycardia based off discussion with office as well as [employer] rep. Okay with initiating beta-willie for better rate control however due to patient's blood pressure we decided to hold
off on this temporarily and allow the hospitalist to determine what medications they would like. We also held off on further diuretics due to the same reason. CT of the chest was negative for any PE however did show pleural effusions and
questionable pneumonia. Hospitalist is aware and accepts for continued evaluation and treatment.
ED Attending Note
<Haider Peres PA-C - Last Filed: 07/16/23 16:57>
-
Portions of this chart may have been created with voice recognition software.� Occasional wrong word or��sound alike� substitutions may have occurred due to the inherent limitations of voice recognition software.
<Yulissa Jain MD - Last Filed: 07/16/23 13:50>
ED Attending Note
Patient seen and examined by attending physician: Yes
I performed the substantive portion of visit, reviewed & personally made and approve the management plan that is documented in note by myself or EFREM.: Yes
ED Attending Note:
Patient arrives tachypneic and tachycardic. Heart rate in the 120s. I suspect this is A-fib with rapid ventricular rate. Clinically she appears to be in failure. Given her morbid obesity, multiple medical problems and being in active CHF, I am
hesitant to do a bedside cardioversion at this time. Patient's pulse ox 87% on room air. I placed her on 2 L of nasal oxygen. We will reach out to cardiology. We are hesitant to give any Cardizem or beta-willie given her being an active heart
failure at this time as well as having a history of COPD.
Discharge Plan
Departure
Patient Disposition: Admit
Date of Disposition: 07/16/23
Time of Disposition: 14:59
Presentation/result/management discussed w/ accepting MD/DO: Hospitalist
Discharge Problem:
Atrial tachycardia, Acute exacerbation of CHF (congestive heart failure)
Interventions
Interventions:
*Risk Screen - Suicide Last Done: 07/16/23 12:51
*General Assessment Last Done: 07/16/23 12:52
*Neglect/Abuse Screening Last Done: 07/16/23 12:51
ED- Fall Risk Assessment Last Done: 07/16/23 12:52
*ED COVID-19 Vaccine History Last Done: 07/16/23 12:51
ED- Cardiac Assessment Last Done: 07/16/23 12:55
ED- Pulmonary Assessment Last Done: 07/16/23 12:55
[2023-07-16 13:23] LABS: % Basophils 1.3 % (0-2); % Eosinophils 1.4 % (0-6); % Immature Granulocytes 0.5 % (0-0.5); % Monocytes 5.8 % (1.7-9.3); Absolute Basophils 0.1 10^3/uL (0-0.2); Absolute Eosinophils 0.1 10^3/uL (0-0.7); Absolute Lymphocytes 1.1 10^3/uL (1.2-3.4); Absolute Monocytes 0.5 10^3/uL (0.1-0.6); Hematocrit 43.4 % (37.0-47.0); Hemoglobin 14.1 g/dL (12.0-16.0); Mean Corp Hgb Conc. 32.5 g/dL (33.0-37.0); Mean Corpuscular Hgb 30.5 pg (27.0-31.0); Mean Corpuscular Volume 93.9 fL (81.0-99.0); Mean Platelet Volume 9.4 fL (7.4-10.4); Nucleated Red Blood Cells % 0 %; Platelet Count 366 10^3/uL (130-400); Red Blood Cell Count 4.62 10^6/uL (4.20-5.40); White Blood Cell Count 7.8 10^3/uL (4.8-10.8)
[2023-07-16 13:34] LABS: ALT (SGPT) 17 U/L (0-35); AST (SGOT) 24 U/L (14-36); Albumin 3.6 g/dl (3.5-5.0); Alkaline Phosphatase 109 U/L (38-126); Blood Urea Nitrogen 16 mg/dl (7-17); Calcium 9.4 mg/dl (8.4-10.2); Carbon Dioxide 20 mmol/L (22-30); Chloride 107 mmol/L (98-107); Estimated Creatinine Clearance 105 ml/min; Glucose 130 mg/dl (70-99); Potassium 5.2 mmol/L (3.5-5.1); Sodium 133 mmol/L (135-145); Total Bilirubin 2.4 mg/dl (0.2-1.3); Total Protein 7.7 g/dl (6.3-8.2); eGFR > 60.00
--- NOTE | 2023-07-16 14:34 | CON.CAR ---
Consultation
Consultation Request
Date/Time Consultation Requested: 07/16/23
Date/Time Consultation Performed: 07/16/23
Requesting Provider: Dr Jain
Performing Provider: Dr Jones (Dr Montes is the primary)
Reason for Consultation: palpitations and sob.
Medical History
-
Chief Complaint: fatigue, sob and palpitaitons
History of Present Illness:
68-year-old female with a past medical history of recurrent atrial arrhythmias including persistent atrial fibrillation, atrial flutter or atrial tachycardia with PVI in September 2022, ablation and repeat PVI and 2022 with recent hospitalization
for recurrent atrial tachycardia and atrial fibrillation last week in the setting of hypokalemia, heart failure with preserved EF, chronic pacemaker, hypertension, morbid obesity, lymphedema presents for evaluation of sudden onset of recurrent
palpitations and fatigue this morning. She thinks that she thought she was back in atrial fibrillation and talk to our office who told her she was back in atrial tachycardia. Given her shortness of breath with exertion and fatigue, she proceeded
to the ED. She reports this is typical of her atrial arrhythmias. She has been taking her medications as prescribed. She has not missed any Eliquis. She is typically in a wheelchair. Her appetite has been poor today but otherwise fine. No
fever no chills.
Past Medical History
Past Medical History: Arrhythmias (Persistent atrial fib, atrial flutter, atrial tachycardia), CHF, CVA and HTN
Social History
Tobacco: Non-Smoker
Alcohol: None
Family History
Family History: Reviewed & Not Pertinent
Allergies / Home Medications
Allergy/AdvReac Type Severity Reaction Status Date / Time
codeine AdvReac Severe 'loopy' Verified 07/16/23 12:48
Medication Instructions Recorded Confirmed Type
montelukast 10 mg tablet 10 mg PO DAILY Lung/breathing 06/23/22 07/05/23 History
issues
apixaban 5 mg tablet (Eliquis) 5 mg PO BID #60 tabs 07/01/22 07/05/23 Rx
furosemide 80 mg tablet (Lasix) 80 mg PO DAILY Fluid 09/23/22 07/05/23 History
retention/Swelling
metoprolol succinate 50 mg 50 mg PO BID Heart 02/17/23 07/05/23 History
tablet,extended release 24 hr Disease/Condition
(Toprol XL)
polyvinyl alcohol 1.4 % eye drops 1 drp BOTH EYES BIDPRN PRN dryness 02/17/23 07/05/23 History
rosuvastatin 20 mg tablet 20 mg PO HS High Cholesterol 02/17/23 07/05/23 History
docusate sodium 100 mg capsule 100 mg PO DAILY Constipation 02/18/23 07/05/23 History
(Colace)
fluticasone 250 mcg-salmeterol 50 2 inh inhalation R BIDPRN PRN SOB 02/22/23 07/05/23 History
mcg/dose blistr powdr for
inhalation (Wixela Inhub)
omeprazole 20 mg capsule,delayed 20 mg PO DAILY Gastrointestinal 02/22/23 07/05/23 History
release Issue
spironolactone 25 mg tablet 25 mg PO DAILY Fluid 02/22/23 07/05/23 History
(Aldactone) Retention/Swelling
dofetilide 250 mcg capsule 250 mcg PO Q12H #180 caps 02/26/23 07/05/23 Rx
therapeutic multivitamin 1 tab PO DAILY Supplement ##0 04/16/23 07/05/23 History
potassium chloride 20 mEq 40 meq PO BID 30 days #120 tabs 07/09/23 Rx
tablet,extended release(part/cryst)
Review of Systems
-
All other systems: Negative unless noted
Physical Exam
Vital Signs
Temp Pulse Resp BP Pulse Ox
97.7 F 123 26 101/75 95
07/16/23 12:49 07/16/23 14:00 07/16/23 14:00 07/16/23 12:49 07/16/23 14:00
Lab Results
07/16/23 13:10
07/16/23 13:10
Physical Exam
General: Well Developed, Well Nourished and Respiratory Distress
HEENT: Normocephalic
Respiratory: Crackles ( bibasilar) and Other (Increased respiratory effort while lying flat)
Cardiac: S1/S2 and Regular Rhythm
GI: Soft and Non Tender
Musculoskeletal: Edema (b/l )
Neuro: AO x 3
Impression / Plan
-
Impression: 68F with palpitations and sob with recent discharge for weakness, af and hypokalemia on 07/09/23.
PMH: Persistent A fib on Eliquis, s/p PVI 09/22/22, repeat PVI and AT/Afl ablation 02/2023, with recurrence and now on Tikosyn, then MDT dual chamber PPM, chronic HFpEF, moderate mitral stenosis, mild , 1st degree AVB, IVCD, HTN, abnormal EKG, CVA
in 1988, left breast cancer 2010 s/p chemo, surgery, and radiation, chronic PIERCE, morbid obesity, and lymphedema.
Plan:
Atrial arrhythmias: Persistent AF/afl/atrial tachycardia
-returns in atrial tachycardia aftert recent discharge on 07/09/23 in [facility].
- Will cautiously continue dofetilide until EP can comment on change in plan
-continue wtih BB. Will increase prn.
-Respiratory status a bit unstable to support elective cardioversion but can be considered if needed once better optimized.
- On apixaban 5mg biD
Chronic HFpEF
- Wt is up from discharge weight
-will incrase diuresis to 80mg IV BID with intensive monitoring or lytes
- on spironolactone 25 mg daily--will monitor dose as K is slightly up but she will get increased lasix.
-Given recurrent arrhythmias will update her echo
PPM
-back into atach overnight after discussion with device nurse Robbin
Moderate MS
Remote Stroke
Prior Breast cancer
Obesity
Lymphedema
LIZZY (07/22/22): EF 50-55%, moderate MS (mean grad 4-5, 3D area 1.45), mild MR, mild , nl RV, mild TR
Data Reviewed
-
EKG: Other ([employer] interrogated was in a one-to-one atrial tachycardia, discussed the in office interrogation with our device nurse Robbin who states she was in a atrial tachycardia this morning with variable block.)
Labs: Discussed with Physician (Dr. Jain, given her respiratory status we agree that elective cardioversion at this time is not indicated, would further optimize her respiratory status and then pursue cardioversion if does not spontaneously
convert.)
[2023-07-16 14:48] LABS: NT-proBNP 8940 pg/ml
[2023-07-16] MEDS: LASIX 80 MG IV (15:32)
[2023-07-16 15:49] LABS: TSH 2.66 uIU/ml (0.47-4.68)
--- NOTE | 2023-07-16 16:07 | HPS.HSE ---
Family Physician
-
Family Physician: Qiana Rodriguez
Chief Complaint
-
Shortness of breath and palpitations
History of Present Illness
Patient with complicated history secondary to arrhythmia presents with shortness of breath and palpitations.
This week she has been feeling fatigued.
Last night she was feeling short of breath with exertion and also was not able to lie flat because of shortness of breath.
Last night she also felt like her heart galloping on her chest and palpitations.
She had some chest pressure but no pain. She had no dizziness.
She was noted to monitor atrial tachycardia noted on the remote quality assurance monitor chassis and was told to come to the ER.
In the ER she has not required rapid A-fib and clinical concern for heart failure. She was given Lasix, Cardizem, beta-willie.
She was sent down for a CTA of the chest report which is pending.
She has history of recurrent atrial arrhythmia including persistent atrial fibrillation. She had atrial flutter/tachycardia and had a PVI in 2022 and again a repeat ablation in February 2023. She recently had a atrial arrhythmia issues supposed
to get a cardioversion but she spontaneously converted to sinus rhythm and was discharged home.
Medical History
Past Medical History
Past Medical History: Reports Arrhythmia, CHF, CVA and HTN
Past Surgical History: Reports Cardiac (Pacemaker)
Social History
Tobacco: Non-smoker
Alcohol: None
Drug: None
Family History
Family History: Not pertinent
Allergies / Home Medications
Allergies reflects when Allergies were last updated in [facility].
Home Medications with original date entered in [facility]
Allergy/Medication List:
Allergies
Allergy/AdvReac Type Severity Reaction Status Date / Time
codeine AdvReac Severe 'loopy' Verified 07/16/23 12:48
Home Medications
montelukast 10 mg tablet 10 mg PO QPM Lung/breathing issues 06/23/22
apixaban 5 mg tablet (Eliquis) 5 mg PO BID #60 tabs 07/01/22
furosemide 80 mg tablet (Lasix) 80 mg PO DAILY@1500 Fluid retention/Swelling 09/23/22
metoprolol succinate 50 mg tablet,extended release 24 hr (Toprol XL) 50 mg PO BID Heart Disease/Condition 02/17/23
polyvinyl alcohol 1.4 % eye drops 1 drp BOTH EYES BIDPRN PRN dryness 02/17/23
rosuvastatin 20 mg tablet 20 mg PO HS High Cholesterol 02/17/23
fluticasone 250 mcg-salmeterol 50 mcg/dose blistr powdr for inhalation (Wixela Inhub) 2 inh inhalation R BIDPRN PRN SOB 02/22/23
omeprazole 20 mg capsule,delayed release 20 mg PO DAILY Gastrointestinal Issue 02/22/23
spironolactone 25 mg tablet (Aldactone) 25 mg PO DAILY Fluid Retention/Swelling 02/22/23
dofetilide 250 mcg capsule 250 mcg PO Q12H #180 caps 02/26/23
therapeutic multivitamin 1 tab PO DAILY Supplement ##0 04/16/23
acetaminophen 325 mg tablet (Tylenol) 650 mg PO BIDPRN PRN mild pain 07/16/23
omeprazole 20 mg capsule,delayed release 20 mg PO DAILY PRN gerd 07/16/23
potassium chloride 20 mEq tablet,extended release 40 meq PO BID 07/16/23
senna leaf extract 8.7 mg chewable tablet (Senokot) 8.7 mg PO DAILY 07/16/23
Review of Systems
-
A 12 point ROS was completed and negative except as noted: Yes
Physical Exam
Vital Signs
Vital Signs
Temp Pulse Resp BP Pulse Ox
97.7 F 124 24 94/73 92
07/16/23 12:49 07/16/23 15:32 07/16/23 15:00 07/16/23 15:32 07/16/23 15:00
Physical Exam
General: No Apparent Distress
HEENT: Moist mucous membranes
Respiratory: Crackles (Bilateral basilar fine crackles) and Non Labored Respirations; No Wheezes or Accessory Resp Muscle Use
Cardiac: S1/S2, Irregular Rhythm and Tachycardia
GI: Soft and Non Tender
Musculoskeletal: No Edema
Neuro: AO x 3
Psych: Calm
Laboratory Results
-
07/16/23 13:10
07/16/23 13:10
Laboratory Results
Total Bilirubin 2.4 mg/dl (0.2-1.3) H 07/16/23 13:10
AST 24 U/L (14-36) 07/16/23 13:10
ALT 17 U/L (0-35) 07/16/23 13:10
Alkaline Phosphatase 109 U/L (38-126) 07/16/23 13:10
Data Reviewed
-
CT Scan: Report Reviewed by me (CT chest)
Lab Data: Labs Reviewed by me
Impression/Plan
-
Acute shortness of breath acute hypoxic respiratory insufficiency-suspect secondary to pulmonary edema noted on the CT chest. Patient also in rapid atrial fibrillation possiblly precipitating it. Hemodynamically stable. Admit to IMU. Start on IV
Lasix. Oxygen therapy. Consult cardiology.
Rapid atrial fibrillation-patient with recurrent atrial arrhythmias with prior ablation. Patient given Cardizem IV in the ED. She also got beta-willie IV in the ED. Continue with her Tikosyn. She is compliant with anticoagulation. Consider
cardioversion. Cardiology consulted.
Pleural bilateral lung parenchymal opacities most prominent in the right apex-radiological concern of pneumonia noted. Patient is afebrile. White count is normal. She has a cough and clear if related to pulmonary edema. Check a procalcitonin.
Clinically nontoxic. Hold on antibiotics. No active bronchospasm. Follow findings with diuresis.
Hypertension-continue the home medication and follow
Hyperlipidemia-continue with statins
Mild hyperkalemia-hold home potassium supplements
Full code
Doesn't want to be on prolonged life support
--- NOTE | 2023-07-16 18:15 | PTCARENOTE ---
Received patient by stretcher from ED. Patient AAOx3, pleasant. No complaints of pain or SOB. 95% on 3L NC. Apaced on monitor. Daughter at bedside. VSS. Continuing to monitor patient.
[2023-07-16 18:55] LABS: Direct Bilirubin 0.6 mg/dl (0.0-0.4)
[2023-07-16] MEDS: TIKOSYN 250 MCG PO (20:09)
[2023-07-16] MEDS: ELIQUIS 5 MG PO (20:09)
[2023-07-16] MEDS: CRESTOR 20 MG PO (20:09)
[2023-07-16 21:07] LABS: Troponin I 0.023 ng/ml
[2023-07-16 21:11] LABS: Procalcitonin 0.05 ng/ml (0.0-0.25)
[2023-07-16] MEDS: TYLENOL 650 MG PO (23:22)
[2023-07-17] VITALS (15 sets, daily range): BP systolic 79–102; BP diastolic 63–82; PULSE 126; O2SAT 94; BMI 44.6
--- NOTE | 2023-07-17 03:56 | PTCARENOTE ---
pt back in afib with v-pacing- 100-120 rate- bp wnl- asymptomatic- 3liters oxygen to maintain sats. - good output using purewick.
[2023-07-17 04:31] LABS: Blood Urea Nitrogen 18 mg/dl (7-17); Carbon Dioxide 27 mmol/L (22-30); Chloride 102 mmol/L (98-107); Estimated Creatinine Clearance 103 ml/min; Glucose 91 mg/dl (70-99); Potassium 3.7 mmol/L (3.5-5.1); Sodium 137 mmol/L (135-145); eGFR > 60.00
[2023-07-17 04:36] LABS: Troponin I 0.023 ng/ml
[2023-07-17] MEDS: SINGULAIR 10 MG PO (08:03)
[2023-07-17] MEDS: PROTONIX 40 MG PO (08:04)
[2023-07-17] MEDS: COLACE 100 MG PO (08:04)
[2023-07-17] MEDS: DESENEX/MITRAZOL/ZEASORB 1 APPLIC TOPICAL ×2 (08:04→20:35)
[2023-07-17] MEDS: ELIQUIS 5 MG PO ×2 (08:04→20:24)
[2023-07-17] MEDS: TIKOSYN 250 MCG PO ×2 (08:04→10:36)
[2023-07-17] MEDS: ALDACTONE 25 MG PO (08:05)
[2023-07-17] MEDS: TOPROL XL 50 MG PO (08:08)
[2023-07-17] MEDS: LASIX IV (08:09)
--- NOTE | 2023-07-17 08:35 | PTCARENOTE ---
Patient received from life assurance representative. Patient resting comfortably in bed. AAO, VSS aside from increased HR. Hospitalist aware, may need cardioversion. No events noted overnight. No complaints of pain at this time. Currently on 2L N/C, will
attempt to wean. Call simon in reach.
--- NOTE | 2023-07-17 08:39 | W.PN.HOSP.TC ---
Today's Communication/Plan
-
Follow on telemetry.
Hold Lasix this morning.
Continue Tikosyn and beta-willie
Assessment / Plan
Assessment / Plan
Acute shortness of breath acute hypoxic respiratory insufficiency-suspect secondary to pulmonary edema noted on the CT chest.� Patient also in rapid atrial fibrillation possibly precipitating it.� Hemodynamically stable.�
Improved symptom of shortness of breath. Weight down to 276 which was her baseline weight at the time of last discharge a week ago.
Continue with Lasix as blood pressure permits
Rapid atrial fibrillation-patient with recurrent atrial arrhythmias with prior ablation.� She is back on Tikosyn and beta-willie. Heart rate still in 120s. Asymptomatic without chest pain or palpitation. She is compliant with anticoagulation.�
Consider cardioversion.� Cardiology following.
Pleural bilateral lung parenchymal opacities most prominent in the right apex-radiological concern of pneumonia noted.� Patient is afebrile.� White count is normal.� She has a cough and clear if related to pulmonary edema.� Normal procalcitonin.�
Clinically nontoxic.� Pneumonia suspect probably fluid related. Hold on antibiotics.� No active bronchospasm.� Follow findings with diuresis.
Hypertension-continue the home medication with parameters. Blood pressure on the lower side.
Hyperlipidemia-continue with statins
Mild hyperkalemia-normal lites. Continue to follow.
Full code
Anticipated Discharge: > 48 hours
Subjective/Interval History
-
Date of Service: July 17, 2023
Not short of breath at rest . Has not done much out of bed. She normally needs a wheelchair to ambulate.
Objective Data
-
Labs:
Laboratory Results
07/17/23
03:21
Sodium 137
Potassium 3.7 D
Chloride 102
Carbon Dioxide 27
BUN 18 H
Creatinine 0.7
Glucose 91
Calcium 9.0
Vital Signs:
Vital Signs
Temp Pulse Resp BP Pulse Ox
97.5 F 128 18 92/65 93
07/17/23 03:40 07/17/23 08:09 07/17/23 08:02 07/17/23 08:09 07/17/23 08:02
I&O
07/16/23 07/17/23 07/18/23
06:59 06:59 07:59
Intake Total 240 / 240
Output Total 2149 / 2149
Balance -1909 / -1909
Review of Systems
-
Respiratory: Denies Cough
Cardiac: Denies Chest Pain or Palpitations
Abdomen/GI: Denies Nausea or Vomiting
Neuro: Denies Dizzy
Physical Exam
-
General: No Apparent Distress
HEENT: Moist Mucous Membranes
Respiratory: Clear to Auscultation and Non Labored Respirations; Negative Accessory Resp Muscle Use
Cardiac: S1/S2, Irregular Rhythm and Tachycardic
Neuro: AO x 3
Data Reviewed
-
Labs: Labs Reviewed by me
[2023-07-17] MEDS: KCL 40 MEQ PO (10:35)
[2023-07-17] MEDS: LANOXIN 250 MCG IV ×2 (10:36→14:58)
--- NOTE | 2023-07-17 12:14 | W.PN.CD ---
Today's Communication / Plan
-
-Pacemaker interrogation�programming modification
-Rate control with addition of digoxin
-Rhythm control management with increasing Tikosyn to 500 mcg
Impression / Plan
-
Impression: 68F with palpitations and sob with recent discharge for weakness, af and hypokalemia on 07/09/23.
PMH: Persistent A fib on Eliquis, s/p PVI 09/22/22, repeat PVI and AT/Afl ablation 02/2023, with recurrence and now on Tikosyn, then MDT dual chamber PPM, chronic HFpEF, moderate mitral stenosis, mild , 1st degree AVB, IVCD, HTN, abnormal EKG, CVA
in 1988, left breast cancer 2010 s/p chemo, surgery, and radiation, chronic PIERCE, morbid obesity, and lymphedema.
Plan:
Atrial arrhythmias: Persistent AF/afl/atrial tachycardia
-returns in atrial tachycardia aftert recent discharge on 07/09/23 in [facility].
-Patient is atrial sensed V paced with heart rate in 120s
-Will reprogram the pacemaker.
� Pacemaker was interrogated and was at DDDR from 60-130 beats per minute. Pacemaker was changed to AAIR�DDDR from 60-110bpm
-Patient is in A-fib/atrial tachycardia�not responding to Tikosyn 250 mcg
-Will increase dose of Tikosyn to 500 mcg twice daily. Will continue to load with loading protocol
-EKG is falsely showing long QTc due to ventricular pacing with long connection/IVCD of QRS.
-With changes in pacemaker and programming, now patient is a sensed V sensed with acceptable QTc.
-Will cautiously continue dofetilide
-continue wtih BB. Will increase prn.
-Respiratory status a bit unstable to support elective cardioversion but can be considered if needed once better optimized.
-On apixaban 5mg biD
-To improve rate control, we will give digoxin to 50 mcg x 1 and if need be start digoxin to 50 mg p.o. daily if Tikosyn is not acceptable.
-Given patient's extensive scarring of the right and left atria, we did discuss the possibility of addition of a CS lead and AVJ ablation. If the current regimen does not improve patient's rhythm then neck step would be to go ahead and upgrade to
BiV and proceed with AVJ ablation
Chronic HFpEF
- Wt is up from discharge weight
-will increase diuresis to 80mg IV BID with intensive monitoring or lytes
- on spironolactone 25 mg daily--will monitor dose as K is slightly up but she will get increased lasix.
-Patient had severe hypokalemia despite on p.o. replacement and Aldactone, we will add another dose this morning.
PPM
-back into atach
Moderate MS
Remote Stroke
Prior Breast cancer
Obesity
Lymphedema
LIZZY (07/22/22): EF 50-55%, moderate MS (mean grad 4-5, 3D area 1.45), mild MR, mild , nl RV, mild TR
Physical Exam
Vital Signs/Labs
Vital Signs
Temp Pulse Resp BP Pulse Ox
97.6 F 110 18 92/65 93
07/17/23 07:45 07/17/23 10:36 07/17/23 08:02 07/17/23 08:09 07/17/23 08:02
07/16/23 07/17/23 07/18/23
06:59 06:59 07:59
Actual Weight 125.22 kg
07/16/23 13:10
07/17/23 03:21
Magnesium 2.0 mg/dl (1.6-2.3) 07/16/23 13:10
TSH 2.66 uIU/ml (0.47-4.68) 07/16/23 13:10
07/16/23
14:17
Mjg-O-Svonirwpucm Pept 8940
LAB Results
07/16/23 07/17/23 07/17/23
20:27 00:01 03:21
Troponin I 0.023 Cancelled 0.023
Physical Exam
Constitutional: No acute distress and Comfortable
EENT: Anicteric and Moist mucous membranes
Cardiovascular: Rhythm & rate is regular, JVD present and Systolic murmur present
Respiratory: Respiratory effort normal, Lungs clear to auscul. and Wheeze Absent
GI: Soft, Non tender and Normal bowel sounds
Neuro/Psych: Alert, Oriented and AO x 3
Data Reviewed
-
Date of Service: July 17, 2023
Medical Decision Making: Reviewed Test Results, Independent Historian Assessment and Test Interpretation
EKG: Tracing Personally Visualized and interpreted
Echo: Report Reviewed by me
Labs: Labs Reviewed by me
Old Records: Reviewed
Critical Care Time (in minutes): 65
--- NOTE | 2023-07-17 13:16 | CM ---
Addendum entered by Chrystal Brown RN 07/17/23 13:19:
FLASH updated hospitalist.
Original Note:
CM was consulted to do a colunga assessment for Tikosyn. CM called patient's pharmacy and copay is $46.
[2023-07-17] MEDS: TYLENOL 650 MG PO (17:04)
[2023-07-17] MEDS: LASIX 40 MG IV (17:04)
[2023-07-17] MEDS: TIKOSYN 500 MCG PO (20:24)
[2023-07-17] MEDS: CRESTOR 20 MG PO (22:32)
--- NOTE | 2023-07-17 22:41 | PTCARENOTE ---
Via Pt home medication list, Pt takes Tikosyn 250mcg 1x daily. Order was placed to restart Tikosyn 07/17/23 @20:00 at the increased dose of 500mcg. This RN referred to the hospital protocol which states that the initial dose of Tikosyn needs to be
given in the IVU, ICU, or CVICU and an EKG is to be done 2hr after each of the first 5 administrations of the medication. Medication was administered. ZAKI notified, ordered for Pt to remain on IMU because of this just being a increase of dose. Ekg
done at 22:30 per protocol.
[2023-07-17] MEDS: TYLENOL 325 MG PO (23:07)
[2023-07-18] VITALS (13 sets, daily range): BP systolic 84–113; BP diastolic 58–76; BMI 44.7
--- NOTE | 2023-07-18 07:36 | PTCARENOTE ---
Pt desat on 2l O2, . O2 up to 4l pox at 94%. Pt is lying flat in bed. Is awaiting a sleep study out pt
--- NOTE | 2023-07-18 07:51 | PTCARENOTE ---
Pt was stuck once by staff and now onlly wants phlebotomy , attempting to call phlebotoy
[2023-07-18] MEDS: PROTONIX 40 MG PO (08:08)
[2023-07-18] MEDS: KCL 40 MEQ PO (08:08)
[2023-07-18] MEDS: TIKOSYN 500 MCG PO ×2 (08:08→19:55)
[2023-07-18] MEDS: LASIX 40 MG IV ×2 (08:09→16:08)
[2023-07-18] MEDS: SINGULAIR 10 MG PO (08:09)
[2023-07-18] MEDS: ALDACTONE 25 MG PO (08:09)
[2023-07-18] MEDS: COLACE 100 MG PO ×3 (08:09→19:55)
[2023-07-18] MEDS: TOPROL XL 50 MG PO (08:10)
[2023-07-18] MEDS: DESENEX/MITRAZOL/ZEASORB 1 APPLIC TOPICAL ×2 (08:10→21:07)
[2023-07-18] MEDS: TYLENOL 325 MG PO ×2 (08:10→22:10)
[2023-07-18] MEDS: ELIQUIS 5 MG PO ×2 (08:10→19:55)
--- NOTE | 2023-07-18 08:40 | W.PN.HOSP.TC ---
Today's Communication/Plan
-
Continue to follow IMU because of increased dose of Tikosyn.
Incentive spirometry
Out of bed to chair.
Wean oxygen as able.
Continue with IV diuresis and follow weights and electrolytes.
Assessment / Plan
Assessment / Plan
Acute shortness of breath acute hypoxic respiratory insufficiency-suspect secondary to pulmonary edema noted on the CT chest.� Patient also in rapid atrial fibrillation possibly precipitating it.� Hemodynamically stable.�
Improved symptom of shortness of breath. Weight down to 276 which was her baseline weight at the time of last discharge a week ago.
Continue with Lasix as blood pressure permits
Wean O2. Add ICS. OOB to chair.
Rapid atrial fibrillation-patient with recurrent atrial arrhythmias with prior ablation.� She is back on Tikosyn and beta-willie. Pacemaker reprogrammed, digoxin added, dose of Tikosyn increased-patient heart rate much better today..� Cardiology
following.
Pleural bilateral lung parenchymal opacities most prominent in the right apex-radiological concern of pneumonia noted.� Patient is afebrile.� White count is normal.� She has a cough and clear if related to pulmonary edema.� Normal procalcitonin.�
Clinically nontoxic.� Pneumonia suspect probably fluid related. Hold on antibiotics.� No active bronchospasm.� Follow findings with diuresis.
Hypertension-continue the home medication with parameters. Blood pressure on the lower side.
Hyperlipidemia-continue with statins
Mild hyperkalemia-normal lites. Continue to follow.
Full code
Anticipated Discharge: > 48 hours
Subjective/Interval History
-
Date of Service: July 18, 2023
Constipated
Denies chest pain, palpitations or shortness of breath at rest. No cough. Still on oxygen at 3 L.
Objective Data
-
Labs:
Laboratory Results
07/18/23
06:00
Sodium Pending
Potassium Pending
Chloride Pending
Carbon Dioxide Pending
BUN Pending
Creatinine Pending
Glucose Pending
Calcium Pending
Vital Signs:
Vital Signs
Temp Pulse Resp BP Pulse Ox
98.5 F 70 22 104/64 89
07/18/23 03:21 07/18/23 08:09 07/18/23 04:00 07/18/23 08:09 07/18/23 04:00
I&O
07/17/23 07/18/23 07/19/23
05:59 06:59 06:59
Intake Total
Output Total
Balance
Review of Systems
-
Constitutional: Denies Fever
EENT: Denies Sore Throat
Abdomen/GI: Denies Abdominal Pain, Nausea or Vomiting
Neuro: Denies Dizzy
Physical Exam
-
General: No Apparent Distress
HEENT: Moist Mucous Membranes
Respiratory: Crackles (Bibasilar crackles. While taking deep breath her oxygenation did improve from 92 to 97 raising concern for atelectasis. Patient mostly in the bed and she does not have her wheelchair.); Negative Wheezes
Cardiac: S1/S2 and Irregular Rhythm; Negative Tachycardic
GI: Soft
Neuro: AO x 3
Psych: Calm
Data Reviewed
-
Labs: Labs Reviewed by me (pending)
[2023-07-18 09:19] LABS: Blood Urea Nitrogen 17 mg/dl (7-17); Calcium 8.9 mg/dl (8.4-10.2); Carbon Dioxide 27 mmol/L (22-30); Chloride 101 mmol/L (98-107); Estimated Creatinine Clearance 120 ml/min; Glucose 98 mg/dl (70-99); Potassium 3.7 mmol/L (3.5-5.1); Sodium 133 mmol/L (135-145); eGFR > 60.00
[2023-07-18] MEDS: MIRALAX 17 GRAMS PO (09:50)
--- NOTE | 2023-07-18 10:03 | W.PN.CD ---
Today's Communication / Plan
-
- Loading Tikosyn to 500 mcg dose
Impression / Plan
-
Impression: 68F with palpitations and sob with recent discharge for weakness, af and hypokalemia on 07/09/23.
PMH: Persistent A fib on Eliquis, s/p PVI 09/22/22, repeat PVI and AT/Afl ablation 02/2023, with recurrence and now on Tikosyn, then MDT dual chamber PPM, chronic HFpEF, moderate mitral stenosis, mild , 1st degree AVB, IVCD, HTN, abnormal EKG, CVA
in 1988, left breast cancer 2010 s/p chemo, surgery, and radiation, chronic PIERCE, morbid obesity, and lymphedema.
Plan:
Atrial arrhythmias: Persistent AF/afl/atrial tachycardia
- now atrial paced rhythm
-returns in atrial tachycardia after recent discharge on 07/09/23 in [facility].
-Patient was atrial sensed V paced with heart rate in 120s due to AT
- s/p reprogram pacemaker. changed to AAIR�DDDR from 60-110bpm
-Patient is in A-fib/atrial tachycardia�not responding to Tikosyn 250 mcg
-Increase dose of Tikosyn to 500 mcg twice daily on 07/17/23
-EKG is falsely showing long QTc due to ventricular pacing with long connection/IVCD of QRS.
-With changes in pacemaker and programming, now patient is a sensed V sensed with acceptable QTc.
-Will cautiously continue dofetilide
-continue wtih BB. Will increase prn.
-Respiratory status a bit unstable to support elective cardioversion but can be considered if needed once better optimized.
-On apixaban 5mg biD
-To improve rate control, we will give digoxin to 50 mcg x 1 and if need be start digoxin to 50 mg p.o. daily if Tikosyn is not acceptable.
-Given patient's extensive scarring of the right and left atria, we did discuss the possibility of addition of a CS lead and AVJ ablation. If the current regimen does not improve patient's rhythm then neck step would be to go ahead and upgrade to
BiV and proceed with AVJ ablation
Chronic HFpEF
- Wt is up from discharge weight
-will increase diuresis to 80mg IV BID with intensive monitoring or lytes
- on spironolactone 25 mg daily--will monitor dose as K is slightly up but she will get increased lasix.
-Patient had severe hypokalemia despite on p.o. replacement and Aldactone, we will add another dose this morning.
PPM
now atrial paced rhythm
Moderate MS
Remote Stroke
Prior Breast cancer
Obesity
Lymphedema
LIZZY (07/22/22): EF 50-55%, moderate MS (mean grad 4-5, 3D area 1.45), mild MR, mild , nl RV, mild TR
Physical Exam
Vital Signs/Labs
Vital Signs
Temp Pulse Resp BP Pulse Ox
97.8 F 70 20 104/64 92
07/18/23 07:55 07/18/23 08:09 07/18/23 08:00 07/18/23 08:09 07/18/23 08:00
07/17/23 07/18/23 07/19/23
05:59 06:59 06:59
Actual Weight
07/16/23 13:10
07/18/23 08:42
Magnesium 2.0 mg/dl (1.6-2.3) 07/16/23 13:10
TSH 2.66 uIU/ml (0.47-4.68) 07/16/23 13:10
07/16/23
14:17
Vdh-V-Gfucogytpib Pept 8940
LAB Results
07/16/23 07/17/23 07/17/23
20:27 00:01 03:21
Troponin I 0.023 Cancelled 0.023
Physical Exam
Constitutional: No acute distress and Comfortable
EENT: Anicteric and Moist mucous membranes
Cardiovascular: Rhythm & rate is regular, Pedal edema is absent, JVD pressure is normal and Systolic murmur present
Respiratory: Respiratory effort normal and Lungs clear to auscul.
GI: Soft, Non tender and Normal bowel sounds
Neuro/Psych: Alert, Oriented and AO x 3
Data Reviewed
-
Date of Service: July 18, 2023
Medical Decision Making: Reviewed Test Results, Test Interpretation and Review of Case with other Provider
EKG: Tracing Personally Visualized and interpreted
Echo: Report Reviewed by me
Labs: Labs Reviewed by me
Old Records: Reviewed
[2023-07-18] MEDS: LANOXIN 250 MCG PO (11:35)
[2023-07-18] MEDS: CRESTOR 20 MG PO (22:13)
[2023-07-19] VITALS (12 sets, daily range): BP systolic 87–103; BP diastolic 57–77; BMI 44.5
--- NOTE | 2023-07-19 02:48 | PTCARENOTE ---
Pt received 3rd dose of Tikosyn. Ekg done 2hr post administration per protocol. QTC remains under 500. Pt C/O irritation just below her right AC. Upon assessment, the area appears warm, reddened and slightly inflamed. The area has been outlined to
assess for spreading of this irritated portion of skin. Pt sacral foam was replaced and antifungal powder applied as needed.
--- NOTE | 2023-07-19 04:33 | PTCARENOTE ---
Pt had repeated episodes of her 02 sats decreasing to 84% despite wearing 2L02 whilst in deep sleep. Pts SAT returned to 95% when awoken and promoted to take deep breaths.
[2023-07-19] MEDS: TIKOSYN 500 MCG PO ×2 (08:19→20:16)
[2023-07-19] MEDS: KCL 40 MEQ PO (08:19)
[2023-07-19] MEDS: ELIQUIS 5 MG PO ×2 (08:20→20:16)
[2023-07-19] MEDS: PROTONIX 40 MG PO (08:20)
[2023-07-19] MEDS: MIRALAX 17 GRAMS PO (08:20)
[2023-07-19] MEDS: SINGULAIR 10 MG PO (08:20)
[2023-07-19] MEDS: LASIX IV (08:23)
[2023-07-19] MEDS: ALDACTONE 25 MG PO (08:23)
[2023-07-19] MEDS: COLACE 100 MG PO ×2 (08:23→20:16)
--- NOTE | 2023-07-19 08:25 | PTCARENOTE ---
Patient received from k 9 handler/ deputy. Patient resting comfortably in bed. AAO, VSS more in control today and A-pacead. No events noted overnight. No complaints of pain at this time. Currently on 2L N/C as she does desat while asleep, will attempt
to wean. Call simon in reach.
[2023-07-19] MEDS: DESENEX/MITRAZOL/ZEASORB 1 APPLIC TOPICAL ×2 (08:27→20:17)
--- NOTE | 2023-07-19 08:31 | W.PN.HOSP.TC ---
Today's Communication/Plan
-
Please see below
Assessment / Plan
Assessment / Plan
Physical Exam
General: No Apparent Distress
HEENT: Moist Mucous Membranes
Respiratory: Crackles (Bibasilar crackles)
Cardiac: S1/S2 and Regular Rate
GI: Soft. Nontender. Positive bowel sounds.
Neuro: AO x 3
Psych: Calm
Assessment/Plan
Acute shortness of breath acute hypoxic respiratory insufficiency-suspect secondary to pulmonary edema noted on the CT chest.� Patient was also in rapid atrial fibrillation possibly precipitating it.� Hemodynamically stable.�
Improved symptom of shortness of breath. Weight was down to 276 which was her baseline weight at the time of last discharge a week ago.
Continue with Lasix diuresis as blood pressure permits
Hypotension has been an issue so will need to closely monitor BP while adjusting her medications.
Wean O2. Add ICS. OOB to chair.
Nocturnal Hypoxemia
-Patient's oxygen desaturated to the 80s while on 2 L of nasal cannula in the very tire groover hours of July 19, 2023
-Will consider pulmonary consultation
Rapid atrial fibrillation-patient with recurrent atrial arrhythmias with prior ablation.� She is back on Tikosyn and beta-willie. Pacemaker reprogrammed, digoxin added, dose of Tikosyn increased-patient heart rate much better today..� Cardiology
following.
Pleural bilateral lung parenchymal opacities most prominent in the right apex-radiological concern of pneumonia noted.� Patient is afebrile.� White count is normal.� She has a cough and clear if related to pulmonary edema.� Normal procalcitonin.�
Clinically nontoxic.� Pneumonia suspect probably fluid related. Hold on antibiotics.� No active bronchospasm.� Follow findings with diuresis.
Hypertension-continue the home medication with parameters. Blood pressure on the lower side with hypotensive readings at times.
Hyperlipidemia-continue with statins
Mild jyoqqkfjcfqo-JJCMAACI-nkahai lites. Continue to follow.
Full code
Anticipated Discharge: 24 - 48 hours
Subjective/Interval History
-
Date of Service: July 19, 2023
Patient was seen and examined. She reports that she does not feel much better than when she came, denied any new symptoms. Overnight, she had oxygen desaturations into the 80s despite wearing the 2 L of oxygen.
Objective Data
-
Labs:
Laboratory Results
07/19/23
06:00
Sodium Pending
Potassium Pending
Chloride Pending
Carbon Dioxide Pending
BUN Pending
Creatinine Pending
Glucose Pending
Calcium Pending
Vital Signs:
Vital Signs
Temp Pulse Resp BP Pulse Ox
98.2 F 71 19 94/60 91
07/19/23 07:55 07/19/23 08:23 07/19/23 06:00 07/19/23 08:23 07/19/23 06:00
I&O
07/18/23 07/19/23 07/20/23
06:59 06:59 06:59
Intake Total 960 / 960
Output Total 2350 / 2350
Balance -1390 / -1390
[2023-07-19] MEDS: TOPROL XL PO (08:49)
[2023-07-19 09:16] LABS: Blood Urea Nitrogen 17 mg/dl (7-17); Calcium 8.8 mg/dl (8.4-10.2); Carbon Dioxide 30 mmol/L (22-30); Chloride 100 mmol/L (98-107); Estimated Creatinine Clearance 120 ml/min; Glucose 155 mg/dl (70-99); Potassium 4.1 mmol/L (3.5-5.1); Sodium 133 mmol/L (135-145); eGFR > 60.00
--- NOTE | 2023-07-19 09:28 | VATNOTE ---
Called to assess right arm 10cm area of inflammation @ right AC, Patient states heat was applied last evening and it doesnt hurt like it did yesterday, Cool compress applied for comfort. Will continue to monitor.
--- NOTE | 2023-07-19 10:15 | VNURNOTE ---
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
[2023-07-19] MEDS: TYLENOL 325 MG PO (12:30)
[2023-07-19] MEDS: LANOXIN 250 MCG PO (12:31)
--- NOTE | 2023-07-19 12:49 | W.PN.CD ---
Today's Communication / Plan
-
- ECHO today
- Discharge after ECHO today from cardiac stand point.
Impression / Plan
-
Impression: 68F with palpitations and sob with recent discharge for weakness, af and hypokalemia on 07/09/23.
PMH: Persistent A fib on Eliquis, s/p PVI 09/22/22, repeat PVI and AT/Afl ablation 02/2023, with recurrence and now on Tikosyn, then MDT dual chamber PPM, chronic HFpEF, moderate mitral stenosis, mild , 1st degree AVB, IVCD, HTN, abnormal EKG, CVA
in 1988, left breast cancer 2010 s/p chemo, surgery, and radiation, chronic PIERCE, morbid obesity, and lymphedema.
Plan:
Atrial arrhythmias: Persistent AF/afl/atrial tachycardia
- s/p reprogram pacemaker. changed to AAIR�DDDR from 60-110bpm
-Patient is in A-fib/atrial tachycardia�not responding to Tikosyn 250 mcg
-Increased dose of Tikosyn to 500 mcg twice daily on 07/17/23 - today AM Dose # 6
-With changes in pacemaker and programming, now patient is a sensed V sensed with acceptable QTc.
-tolerated higher dose of dofetilide
-now s/o 6 dose of new dose of Tikosyn - Ready for discharge this AM
-continue BB.
-Respiratory status a bit unstable to support elective cardioversion but can be considered if needed once better optimized.
-On apixaban 5mg biD
-added digoxin 250 mcg QD for rate control
-Given patient's extensive scarring of the right and left atria, we did discuss the possibility of addition of a CS lead and AVJ ablation. If the current regimen does not improve patient's rhythm then neck step would be to go ahead and upgrade to
BiV and proceed with AVJ ablation
Chronic HFpEF
- Change Lasix to 80mg PO QD with intensive monitoring or lytes
- on spironolactone 25 mg daily--will monitor dose as K is slightly up but she will get increased lasix.
PPM
now atrial paced rhythm
Moderate MS
- last TTE was on 04/16/22 - moderate MS - gradient 7-9 mmHg
- LIZZY (07/22/22): EF 50-55%, moderate MS (mean grad 4-5, 3D area 1.45), mild MR, mild , nl RV, mild TR
- ECHO today now that the rates are improved. (was scheduled later this week but is requeting to be done today as she cannot come back.
Remote Stroke
Prior Breast cancer
Obesity
Lymphedema
Physical Exam
Vital Signs/Labs
Vital Signs
Temp Pulse Resp BP Pulse Ox
98.2 F 71 19 94/60 94
07/19/23 07:55 07/19/23 12:31 07/19/23 06:00 07/19/23 08:49 07/19/23 10:36
07/18/23 07/19/23 07/20/23
06:59 06:59 06:59
Actual Weight 125.1 kg
07/16/23 13:10
07/19/23 08:34
Magnesium 2.0 mg/dl (1.6-2.3) 07/16/23 13:10
TSH 2.66 uIU/ml (0.47-4.68) 07/16/23 13:10
07/16/23
14:17
Pim-D-Knoirzuzxki Pept 8940
LAB Results
07/16/23 07/17/23 07/17/23
20:27 00:01 03:21
Troponin I 0.023 Cancelled 0.023
Physical Exam
Constitutional: No acute distress and Comfortable
EENT: Anicteric and Moist mucous membranes
Cardiovascular: Rhythm & rate is regular, Pedal edema is absent, JVD pressure is normal, JVD present, Systolic murmur present and Diastolic murmur present
Respiratory: Respiratory effort normal, Lungs clear to auscul., Wheeze Absent and Crackles Absent
GI: Soft, Distention absent, Non tender and Normal bowel sounds
Neuro/Psych: Alert, Oriented and AO x 3
Data Reviewed
-
Date of Service: July 19, 2023
Medical Decision Making: Reviewed Test Results, Independent Historian Assessment and Test Interpretation
EKG: Tracing Personally Visualized and interpreted
Echo: Report Reviewed by me
Labs: Labs Reviewed by me
Old Records: Reviewed
--- NOTE | 2023-07-19 16:37 | CM ---
Patient with Dx acute hypoxic respiratory insufficiency-suspect secondary to pulmonary edema, Rapid atrial fibrillation. O2 2L. Receiving Tikosyn. PT recommends HH.
Met with patient who resides alone with her cat Juan Miguel in a 1 story modular house with no SYEDA, in [facility], a [place] [facility].
The patient has been mostly independent in ADLs and ambulation, sometimes using her RW.
The MECHANICAL ENGINEERING DRAFTSPERSON through [facility] assists her with a shower.
DME - RW, w/c
VN - current with [facility] for SN/PT/OT/MECHANICAL ENGINEERING DRAFTSPERSON & SW. The SW was helping her apply for a caregiver through [employer].
SNF - none
PCP - Qiana Rodriguez
Pharmacy - [facility]
Confirmed that the patient's friend Elan Zabala, who lives in [facility], is her primary contact. Her daughter Karey, who also lives in [facility], is her secondary contact.
The patient says she may be discharged home tomorrow. IMM completed. She will contact a neighbor for a ride home.
The patient wishes to resume service with [facility] at discharge. Olena [facility] Liaison aware.
Plan home with resumption of [facility].
[2023-07-19] MEDS: CRESTOR 20 MG PO (21:34)
[2023-07-20] VITALS (15 sets, daily range): BP systolic 91–117; BP diastolic 54–86; PULSE 120–125; O2SAT 92; BMI 44.7
[2023-07-20] MEDS: TYLENOL 325 MG PO ×3 (00:06→20:58)
--- NOTE | 2023-07-20 01:10 | PTCARENOTE ---
Addendum entered by Virginia Fisher RN 07/20/23 06:18:
Pt continued to have episodes of desaturation, lowest 82%. Pt awoken, SPO2 had immediate rise to 94%. Pt AAOx3 no complaints at this time
Addendum entered by Virginia Fisher RN 07/20/23 03:44:
Pt having episodes of desaturation into the low 80's over night then returning to low 90's with in 15 seconds.
Original Note:
Pt had complaint of back and bottom pain, Tylenol given (see MAR). Upon reassessment Pt appears to be sleeping, respiration even and unlabored SP02 91 on 3L. Assessment care and vitals as charted.
--- NOTE | 2023-07-20 04:05 | PTCARENOTE ---
Pt on cardiac medication and having nocturnal hypoxemia, labs have not been drawn since 07/15. Night REFINERY OPERATOR VISBREAKING made aware, no further orders at this time.
--- NOTE | 2023-07-20 04:05 | PTCARENOTE ---
Pt on cardiac medication and having nocturnal hypoxemia, no AM labs ordered. Night RN CLINICAL RESOURCE made aware, no further orders at this time.
[2023-07-20] MEDS: MIRALAX 17 GRAMS PO (08:26)
[2023-07-20] MEDS: PROTONIX 40 MG PO (08:28)
[2023-07-20] MEDS: ELIQUIS 5 MG PO ×2 (08:28→20:49)
[2023-07-20] MEDS: TIKOSYN 500 MCG PO ×2 (08:28→20:49)
[2023-07-20] MEDS: LASIX 80 MG PO (08:28)
[2023-07-20] MEDS: TOPROL XL 50 MG PO (08:28)
[2023-07-20] MEDS: ALDACTONE 25 MG PO (08:28)
[2023-07-20] MEDS: COLACE 100 MG PO (08:29)
[2023-07-20] MEDS: SINGULAIR 10 MG PO (08:29)
[2023-07-20] MEDS: KCL 40 MEQ PO (08:29)
[2023-07-20] MEDS: DESENEX/MITRAZOL/ZEASORB 1 APPLIC TOPICAL ×2 (08:29→21:01)
[2023-07-20] MEDS: LANOXIN 250 MCG PO (12:04)
--- NOTE | 2023-07-20 12:20 | CON.PUL ---
Consultation
Consultation Request
Date/Time Consultation Requested: 07/20/2023825
Date/Time Consultation Performed: 07/20/2023 - 1107
Requesting Provider: Dr. Gaytan
Performing Provider: Dr. Mercedes
Reason for Consultation: Abnormal CTA Chest
Medical History
-
Chief Complaint: SOB/racing heart
History of Present Illness:
68-year-old female with a past medical history of mild intermittent asthma, severe RAMY, former tobacco use disorder, mitral valve stenosis, history of pulmonary nodules and history of CVA who presents with shortness of breath and palpitations. Week
prior to arrival she was fatigued. The night prior to come to the ER she felt severe shortness of breath and could not lay flat because of this. She also felt her heart galloping on her chest with palpitations. She noted chest pressure but no
pain. In the ER she was found to be in rapid A-fib and IV lopressor + IV cardizem were given. CTA chest showed volume overload with several subpleural nodular opacities and a opacity in the posterior right upper lobe concerning for suspected
pneumonia. Lasix was given to the patient. She was admitted to the hospitalist service. Pulmonary now consulted in relationship to this abnormal CTA chest done on 07/16/2023.
When I saw the patient she was laying in bed in no acute distress. Still says she has shortness of breath but it is improved compared to when she first arrived. She denied any recent worsening in her cough, as her cough is usually white phlegm
that is mainly in the morning over the last 6 months. She is wheelchair-bound and has how she ambulates at home, so any exertional activity does make her have shortness of breath. She is currently on 3 L/min nasal cannula. She denies chest pain,
headache, fevers or chills.
PMHx: Severe RAMY, mild intermittent asthma, history of pulmonary nodules, mitral valve stenosis, former tobacco smoker (10 pack years, quit 22 years ago), peptic ulcer disease, history of CVA with no residual deficits, history of gastric bypass,
depression, anxiety, hypertension, ADD, history of breast cancer s/p lumpectomy/XRT with chemotherapy, GERD
PSHx: Gastric band surgery, , cholecystectomy, tonsillectomy, hernia repair gastric band surgery, , cholecystectomy, tonsillectomy, hernia repair
Past Medical History
Past Medical History: Other (Above as per HPI)
Past Surgical History: Other (Above as per HPI)
Social History
Tobacco: Former Smoker (10 pack years, quit 22 years ago)
Alcohol: None
Drug: None
Family History
Family History: Reviewed & Not Pertinent
Allergies / Home Medications
Allergies
Allergy/AdvReac Type Severity Reaction Status Date / Time
codeine AdvReac Severe 'loopy' Verified 07/16/23 12:48
Home Medications
Medication Instructions Recorded Confirmed Last Taken Type
montelukast 10 mg tablet 10 mg PO QPM Lung/breathing issues 06/23/22 07/16/23 07/15/23 History
apixaban 5 mg tablet (Eliquis) 5 mg PO BID #60 tabs 07/01/22 07/16/23 07/16/23 Rx
furosemide 80 mg tablet (Lasix) 80 mg PO DAILY@1500 Fluid 09/23/22 07/16/23 07/15/23 History
retention/Swelling
metoprolol succinate 50 mg 50 mg PO BID Heart 02/17/23 07/16/23 07/16/23 History
tablet,extended release 24 hr Disease/Condition
(Toprol XL)
polyvinyl alcohol 1.4 % eye drops 1 drp BOTH EYES BIDPRN PRN dryness 02/17/23 07/16/23 3 Days Ago History
~07/13/23
rosuvastatin 20 mg tablet 20 mg PO HS High Cholesterol 02/17/23 07/16/23 07/15/23 History
fluticasone 250 mcg-salmeterol 50 2 inh inhalation R BIDPRN PRN SOB 02/22/23 07/16/23 07/15/23 History
mcg/dose blistr powdr for
inhalation (Wixela Inhub)
omeprazole 20 mg capsule,delayed 20 mg PO DAILY Gastrointestinal 02/22/23 07/16/23 07/16/23 History
release Issue
spironolactone 25 mg tablet 25 mg PO DAILY Fluid 02/22/23 07/16/23 07/16/23 History
(Aldactone) Retention/Swelling
dofetilide 250 mcg capsule 250 mcg PO Q12H #180 caps 02/26/23 07/16/23 07/16/23 Rx
therapeutic multivitamin 1 tab PO DAILY Supplement ##0 04/16/23 07/16/23 07/15/23 History
acetaminophen 325 mg tablet 650 mg PO BIDPRN PRN mild pain 07/16/23 07/16/23 07/15/23 History
(Tylenol)
omeprazole 20 mg capsule,delayed 20 mg PO DAILY PRN gerd 07/16/23 07/16/23 07/15/23 History
release
potassium chloride 20 mEq 40 meq PO BID 07/16/23 07/16/23 07/16/23 History
tablet,extended release
senna leaf extract 8.7 mg chewable 8.7 mg PO DAILY 07/16/23 07/16/23 07/15/23 History
tablet (Senokot)
Review of Systems
-
History Source: Patient
All other systems: Negative unless noted (12 point ROS performed and is negative unless mentioned above.)
Vitals / Labs / Diagnostic Testing
Vital Signs
Temp Pulse Resp BP Pulse Ox
97.2 F 127 21 117/86 90
07/20/23 07:54 07/20/23 12:04 07/20/23 10:00 07/20/23 10:00 07/20/23 11:53
Lab Data
07/16/23 13:10
07/19/23 08:34
Diagnostic Testing:
Physical Exam
-
HEENT: Normocephalic and Anicteric
Cardiovascular: S1/S2, Irregular Rhythm, Peripheral Edema (negative) and Other (normal rate)
Respiratory: Wheeze (negative), Rales (left base), Rhonchi (negative), Non-Labored Respirations and Other (reduced BS b/l)
GI: Soft, Non Distended and Non Tender
Neurology: AO x 3
Skin: Warm and Dry
General: Comfortable and Sweats (negative)
Assessment
-
Assessment: 68-year-old female with a past medical history of mild intermittent asthma, severe RAMY, former tobacco use disorder, mitral valve stenosis, history of pulmonary nodules and history of CVA who presents with shortness of breath and
palpitations. Week prior to arrival she was fatigued. The night prior to come to the ER she felt severe shortness of breath and could not lay flat because of this. She also felt her heart galloping on her chest with palpitations. She noted chest
pressure but no pain. In the ER she was found to be in rapid A-fib and IV lopressor + IV cardizem were given. CTA chest showed volume overload with several subpleural nodular opacities and a opacity in the posterior right upper lobe concerning for
suspected pneumonia. Lasix was given to the patient. She was admitted to the hospitalist service. Pulmonary now consulted in relationship to this abnormal CTA chest done on 07/16/2023.
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
gastric bypass, depression, anxiety, hypertension, ADD, history of breast cancer s/p lumpectomy/XRT with chemotherapy, GERD
Impression:
#Abnormal CTA chest with subpleural parenchymal nodular opacities bilaterally most prominent in the posterior right lung apex, with mild cardiomegaly and diffuse coarsening of interstitial markings consistent with pulmonary edema - right posterior
lung apex opacity and subpleural opacities are new compared to prior CTA chest from 06/2022
#Persistent A-fib on Eliquis2
#Acute respiratory failure with hypoxemia on supplemental oxygen (currently on 3L/min)
#Acute on chronic HFrEF (LVEFL 30-35% via TTE done today)
#RV dysfunction
#Valvular heart disease with mild-moderate TR
#Hyponatremia (mild) - baseline Na 132 - 138
Plan:
- her largest opacity in posterior RUL is a parenchymal opacity, possibly due to aspiration. Initial procal negative. She has no obvious Sx of PNA. She has remained afebrile and she looks non-toxic. I will hold off on Abx and trend procal; she
does have a chronic cough and had chills for several weeks-months, but still she is not appearing to have a PNA hence will c/t monitor off ABx
- Continue diuresis and monitor I/O
- Continue supplemental oxygen and titrate as tolerated to maintain SpO2 >90-94%
- Replete K>4, Mg>2
- heart rate control with goal HR<110bpm
- Low sodium diet, fluid restriction
- Start GDMT as per cardiology
- Maintain MAP>65
- If pt spikes fever then start ABx with holley-Cx prior to starting
- Pt needs repeat chest imaging with CT chest without contrast in 6-8 weeks to assess stability of nodular opacities
- DVT ppx: on eliquis
Patient had previously follow-up with the [facility] office with Dr. Arriaga � last office visit on 02/16/2022. She was follow-up with us for severe RAMY with intolerance of CPAP, asthma, pulmonary nodules and former tobacco use disorder.
Pulmonary service will continue to follow along.
There is a moderate level of medical decision making for this encounter.
Data:
CTA Chest 07-16-2023:
1.). There is no pulmonary embolism
2). There is mild cardiomegaly with diffuse coarsening of the interstitial markings throughout both lungs most consistent with pulmonary edema
3). There are patchy areas of subpleural parenchymal density in both lungs most prominent in the posterior right lung apex worrisome for superimposed pneumonia
4). There is stable mediastinal and bilateral hilar lymphadenopathy
5). Atherosclerosis
6). Low density masses in both lobes of the thyroid which, if clinically indicated, could be best further evaluated and followed with thyroid ultrasound
TTE 07-20-2023:
Technically difficult study and patient is in AF RVR.
�Normal LV size with moderately reduced systolic function.
�LV ejection fraction is 30 to 35% by visual estimation.
�Global diffuse hypokinesis.
�Enlarged right ventricular size. Reduced right ventricular systolic function.
�Moderate mitral stenosis.
�Mild aortic stenosis.
�Mild to moderate tricuspid regurgitation.
�Estimated pulmonary artery pressure of 45 mmHg assuming a right atrial pressure
�of 3 mmHg.
�Compared to prior from April 16, 2022, estimated ejection fraction is now
�moderately reduced 30 to 35% from 50 to 55%.� This could be secondary to atrial
�fibrillation with RVR.� Tricuspid regurgitation is now mild to moderate with
�mildly elevated estimated PASP as above.
--- NOTE | 2023-07-20 12:32 | CM ---
Patient seen, reports no new concerns at this time. Patient reports she is eager to go home. CM will continue to follow for discharge planning needs.
Plan; home with return of care VN.
--- NOTE | 2023-07-20 12:59 | VATNOTE ---
Right Antecubital inflammation decreased in size and redness, patient states it feels much better.
--- NOTE | 2023-07-20 15:32 | PTCARENOTE ---
Patient worked with PT and requested to be put into a wheelchair instead of recliner chair. While patient was in wheelchair, PCT rolled her down to waiting room to look out windows and when she was ready to come back, patient rolled back into room.
She stayed in the wheelchair for approx 1.5 hours then wanted to get back into bed. She is just a standby transfer for wires. Assessment, care and VS as charted.
--- NOTE | 2023-07-20 17:28 | W.PN.HOSP.TC ---
Today's Communication/Plan
-
Pulmonary consulted, recommendations appreciated
Echocardiogram
Assessment / Plan
Assessment / Plan
Physical Exam
General: No Apparent Distress
HEENT: Moist Mucous Membranes
Respiratory: Crackles (Bibasilar crackles)
Cardiac: S1/S2 and Regular Rate
GI: Soft. Nontender. Positive bowel sounds.
Neuro: AAO x 3
Psych: Calm
Assessment/Plan
Acute shortness of breath acute hypoxic respiratory insufficiency-suspect secondary to pulmonary edema noted on the CT chest.�Patient was also in rapid atrial fibrillation possibly precipitating it.� Hemodynamically stable.�
Improved symptom of shortness of breath. Weight was down to 276 which was her baseline weight at the time of last discharge a week ago.
Continue with Lasix diuresis as blood pressure permits
Hypotension has been an issue so will need to closely monitor BP while adjusting her medications.
Wean O2. Add ICS. OOB to chair.
Nocturnal Hypoxemia
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
-Consulted pulmonary, recommendations appreciated
Rapid atrial fibrillation-patient with recurrent atrial arrhythmias with prior ablation.� She is back on Tikosyn and beta-willie. Pacemaker reprogrammed, digoxin added, dose of Tikosyn increased-patient heart rate much better today..� Cardiology
following. Echo ordered
Pleural bilateral lung parenchymal opacities most prominent in the right apex-radiological concern of pneumonia noted.� Patient is afebrile.� White count is normal.� She has a cough and clear if related to pulmonary edema.� Normal procalcitonin.�
Clinically nontoxic.� Pneumonia suspect probably fluid related. Hold on antibiotics.� No active bronchospasm.� Follow findings with diuresis.
Hypertension-continue the home medication with parameters. Blood pressure on the lower side with hypotensive readings at times.
Hyperlipidemia-continue with statins
Mild peinmziprbxe-[id number]-kfizth lites. Continue to follow.
Full code
Anticipated Discharge: 24 - 48 hours
Subjective/Interval History
-
Date of Service: July 20, 2023
Patient was seen and examined. She reported 'feeling good.'
Objective Data
-
Vital Signs:
Vital Signs
Temp Pulse Resp BP Pulse Ox
97.6 F 100 26 92/70 92
07/20/23 15:48 07/20/23 16:00 07/20/23 16:00 07/20/23 16:00 07/20/23 16:00
I&O
07/19/23 07/20/23 07/21/23
06:59 06:59 06:59
Intake Total 960 / 960 1200 / 1200
Output Total 2350 / 2350 400 / 400
Balance -1390 / -1390 800 / 800
[2023-07-20] MEDS: CRESTOR 20 MG PO (21:00)
[2023-07-20] MEDS: COLACE PO (21:01)
--- NOTE | 2023-07-20 21:32 | PTCARENOTE ---
Assumed care of Pt from Day RN. Pt AAOX3. Pt with known pacemaker, tele strip appears to be showing misfiring pacer spikes. Pt assessed, Pt is not aware of any unusual feelings in chest. Vitals remain unchanged and stable at this time.
[2023-07-21] VITALS (14 sets, daily range): BP systolic 80–110; BP diastolic 56–80; BMI 45.3
[2023-07-21 04:31] LABS: Procalcitonin < 0.05 ng/ml (0.0-0.25)
[2023-07-21] MEDS: TOPROL XL 50 MG PO (09:01)
[2023-07-21] MEDS: ELIQUIS 5 MG PO ×2 (09:01→20:07)
[2023-07-21] MEDS: SINGULAIR 10 MG PO (09:01)
[2023-07-21] MEDS: LASIX 80 MG PO (09:01)
[2023-07-21] MEDS: PROTONIX 40 MG PO (09:01)
[2023-07-21] MEDS: TIKOSYN 500 MCG PO ×2 (09:01→20:06)
[2023-07-21] MEDS: ALDACTONE 25 MG PO (09:01)
[2023-07-21] MEDS: KCL 40 MEQ PO (09:01)
--- NOTE | 2023-07-21 09:01 | W.PN.PUL3 ---
Today's Communication / Plan
-
Given her Hx of severe RAMY with nocturnal desaturation via home sleep study in 03/2020 with traci SpO2 of 67%, and given concern for OHS, I will trial her on BiPAP tonight. If she is intolerant to this, then would transition to CPAP, starting at
5cmH2O, and if she tolerates this then raise to 8cmH2O.
Lexiscan tomorrow AM
GDMT as per cardiology
Diuresis
Encourge IS
She was using Wixela 250mcg as needed as an outpatient for mild intermittent asthma --> we can continue this while pt hospitalized
Pulmonary service will continue to follow along
Assessment
-
Assessment: 68-year-old female with a past medical history of mild intermittent asthma, severe RAMY, former tobacco use disorder, mitral valve stenosis, history of pulmonary nodules and history of CVA who presents with shortness of breath and
palpitations. Week prior to arrival she was fatigued. The night prior to come to the ER she felt severe shortness of breath and could not lay flat because of this. She also felt her heart galloping on her chest with palpitations. She noted chest
pressure but no pain. In the ER she was found to be in rapid A-fib and IV lopressor + IV cardizem were given. CTA chest showed volume overload with several subpleural nodular opacities and a opacity in the posterior right upper lobe concerning for
suspected pneumonia. Lasix was given to the patient. She was admitted to the hospitalist service. Pulmonary now consulted in relationship to this abnormal CTA chest done on 07/16/2023.
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
gastric bypass, depression, anxiety, hypertension, ADD, history of breast cancer s/p lumpectomy/XRT with chemotherapy, GERD
Impression:
#Abnormal CTA chest with subpleural parenchymal nodular opacities bilaterally most prominent in the posterior right lung apex, with mild cardiomegaly and diffuse coarsening of interstitial markings consistent with pulmonary edema - right posterior
lung apex opacity and subpleural opacities are new compared to prior CTA chest from 06/2022
#Persistent A-fib on Eliquis
#Acute respiratory failure with hypoxemia on supplemental oxygen (currently on 4.5 L/min)
#Acute on chronic HFrEF (LVEFL 30-35% via TTE done 07/20/2023)
#RV dysfunction
#Valvular heart disease with mild-moderate TR
#Hyponatremia (mild) - baseline Na 132 - 138
#obesity (BMI: 45.3)
#History of severe RAMY (respiratory event index: 65.7, O2-desaturation down to 67% via portable sleep study on 03/2020); suspected obesity hypoventilation syndrome
#Nocturnal hypoxia - likely due to RAMY that is not being Tx
Plan:
- her largest opacity in posterior RUL is a parenchymal opacity, possibly due to aspiration. Procal negative x2 - hold off on Abx. She has no obvious Sx of PNA. She has remained afebrile and she looks non-toxic. she does have a chronic cough and
had chills for several weeks-months, but still she is not ill-appearing hence will c/t monitor off ABx
- Continue diuresis (lasix 80mg PO daily) and monitor I/O
- Continue supplemental oxygen and titrate as tolerated to maintain SpO2 >90-94%
- Replete K>4, Mg>2
- heart rate control with goal HR<110bpm
- Low sodium diet, fluid restriction
- Start GDMT as per cardiology
- Lexiscan in the morning as per cardiology given echo findings with concern for ischemic heart disease
- Maintain MAP>65
- Considering she has Hx of RAMY and also her serum HCO3 is rising, now it is 30 as pf 07/19/2023, I will trial her on BiPAP (nocturnal), and she will need to discuss her sleep disordered breathing in office - likey will need a titration study given
intolerance to CPAP in past and with her BMI being 45, she likely has obesity-hypoventilation syndrome
- If pt spikes fever then start ABx with holley-Cx prior to starting
- Pt needs repeat chest imaging with CT chest without contrast in 6-8 weeks to assess stability of nodular opacities
- DVT ppx: on eliquis
Patient had previously follow-up with the [facility] office with Dr. Arriaga � last office visit on 02/16/2022. She was supposed to follow-up with us for severe RAMY with intolerance of CPAP, asthma, pulmonary nodules and former tobacco use disorder.
Pulmonary service will continue to follow along.
There is a moderate level of medical decision making for this encounter.
Data:
CTA Chest 07-16-2023:
1.). There is no pulmonary embolism
2). There is mild cardiomegaly with diffuse coarsening of the interstitial markings throughout both lungs most consistent with pulmonary edema
3). There are patchy areas of subpleural parenchymal density in both lungs most prominent in the posterior right lung apex worrisome for superimposed pneumonia
4). There is stable mediastinal and bilateral hilar lymphadenopathy
5). Atherosclerosis
6). Low density masses in both lobes of the thyroid which, if clinically indicated, could be best further evaluated and followed with thyroid ultrasound
TTE 07-20-2023:
Technically difficult study and patient is in AF RVR.
�Normal LV size with moderately reduced systolic function.
�LV ejection fraction is 30 to 35% by visual estimation.
�Global diffuse hypokinesis.
�Enlarged right ventricular size. Reduced right ventricular systolic function.
�Moderate mitral stenosis.
�Mild aortic stenosis.
�Mild to moderate tricuspid regurgitation.
�Estimated pulmonary artery pressure of 45 mmHg assuming a right atrial pressure
�of 3 mmHg.
�Compared to prior from April 16, 2022, estimated ejection fraction is now
�moderately reduced 30 to 35% from 50 to 55%.� This could be secondary to atrial
�fibrillation with RVR.� Tricuspid regurgitation is now mild to moderate with
�mildly elevated estimated PASP as above.
Outpatient [facility] Data:
SLEEP STUDIES:
����Portable sleep study : Respiratory event index of 65.7 events per hour. Oxygen desaturation down to 67%. Severe obstructive sleep apnea.
CARDIAC STUDIES:
������ ECHO 01/09/21: LV EF 55-60%, normal RV. Severe dilated LA, moderate MS, mild MR
��������ECHO 03/03/18: EF normal, moderate dilated LA, mild to mod MS.�
RADIOGRAPHIC STUDIES:
������ CT CHEST 02/02/22: numerous scattered pulmonary nodules-- Lingula: 3 mm; RUL: 5 mm, 6 mm; OG: 5mm; RLL: 8mm, 3mm, 3mm; PNA in LLs L>R, scattered opacities throughout lungs also noted, likely infectious. Small left parapneumonic effusion
��������CXR 01/19/22: LLL consolidation/effusion.�
PFT:
������ Elie 02/16/22: FEV1 1.96L 78%, FVC 2.46L 74%, ratio 0.79. Post FEV1 2.16L 86% no BD response (suggests restriction, normal post).�
Subjective Data
-
Date of Service:
Date of Service: July 21, 2023
Chief Complaint: Pulmonary Follow Up
Subjective:
Patient seen today at bedside and evaluated. She is laying in bed in no acute distress. She is on 4.5 L/min nasal cannula. SOB is stable. She denies chest pain, headache, fevers or chills. Pt desaturated overnight to 87% while on 3L/min.
Review of Systems
General: Other (12 point ROS performed and is negative unless mentioned above.)
Objective Data
Data Reviewed
Vital Signs / I&O / Oxygen:
Vital Signs
Temp Pulse Resp BP Pulse Ox
98.3 F 94 24 93/64 93
07/21/23 11:03 07/21/23 09:01 07/21/23 08:00 07/21/23 09:01 07/21/23 09:05
Intake and Output
07/20/23 07/21/23 07/22/23
06:59 06:59 06:59
Intake Total 1200 / 1200 1080 / 1080
Output Total 400 / 400
Balance 800 / 800 1080 / 1080
SaO2 93
Nasal Cannula flow liters per 5
minute
Physical Exam
General: Respiratory Distress (Negative) and Comfortable
HEENT: Normocephalic and Anicteric
Cardiovascular: Irregular Rhythm (Irregularly irregular), Peripheral Edema (Negative) and Other (normal rate)
Respiratory: Wheeze (Negative), Crackles (Right anterior hemithorax), Rhonchi (Negative) and Non-Labored Respirations
GI: Soft, Non Distended and Non Tender
Neurology: Awake and Alert
Skin: Warm and Dry
Labs/Micro/Reports
Lab Data
07/16/23 13:10
07/19/23 08:34
[2023-07-21] MEDS: DESENEX/MITRAZOL/ZEASORB 1 APPLIC TOPICAL ×2 (09:02→20:09)
[2023-07-21] MEDS: COLACE 100 MG PO ×2 (09:03→20:08)
[2023-07-21] MEDS: MIRALAX 17 GRAMS PO (09:03)
--- NOTE | 2023-07-21 09:49 | W.PN.CD ---
Today's Communication / Plan
-
Myocardial perfusion scan with Lexiscan in the morning
Add lisinopril 2.5 mg once a day
Consider addition of Farxiga or Jardiance
Impression / Plan
-
Impression: 68F with palpitations and sob with recent discharge for weakness, af and hypokalemia on 07/09/23.
PMH: Persistent A fib on Eliquis, s/p PVI 09/22/22, repeat PVI and AT/Afl ablation 02/2023, with recurrence and now on Tikosyn, then MDT dual chamber PPM, chronic HFpEF, moderate mitral stenosis, mild , 1st degree AVB, IVCD, HTN, abnormal EKG, CVA
in 1988, left breast cancer 2010 s/p chemo, surgery, and radiation, chronic PIERCE, morbid obesity, and lymphedema.
Plan:
Atrial arrhythmias: Persistent AF/afl/atrial tachycardia
- s/p reprogram pacemaker. changed to AAIR�DDDR from 60-110bpm
-Patient is in A-fib/atrial tachycardia�not responding to Tikosyn 250 mcg
-Increased dose of Tikosyn to 500 mcg twice daily on 07/17/23 - today AM Dose # 6
-With changes in pacemaker and programming, now patient is a sensed V sensed with acceptable QTc.
-tolerated higher dose of dofetilide
-now s/o 6 dose of new dose of Tikosyn - Ready for discharge this AM
-continue BB.
-Respiratory status a bit unstable to support elective cardioversion but can be considered if needed once better optimized.
-On apixaban 5mg biD
-added digoxin 250 mcg QD for rate control
-Given patient's extensive scarring of the right and left atria, we did discuss the possibility of addition of a CS lead and AVJ ablation. If the current regimen does not improve patient's rhythm then neck step would be to go ahead and upgrade to
BiV and proceed with AVJ ablation
Chronic HFrEF
- ECHO on 07/20/23 showed LVEF of 30% - severe systolic dysfunction - global hypokinesis
- Normal cors in 2021
- Lexiscan in AM to rule out any new ischemia
- ECHO was 60% EF with diastolic dysfunction in 04/30
- On Metoprolol, aldactone and lasix
- Limited due to hypotension
- Will try adding lasix 2.5 mg QD today
- Change Lasix to 80mg PO QD with intensive monitoring or lytes
- on spironolactone 25 mg daily--will monitor dose as K is slightly up but she will get increased lasix.
- Case management to colunga the Farxiag vs Jardiance - will get benefit from either one
PPM
now atrial paced rhythm
short runs of AT /AF noted.
Moderate MS
- last TTE was on 04/16/22 - moderate MS - gradient 7-9 mmHg
- LIZZY (07/22/22): EF 50-55%, moderate MS (mean grad 4-5, 3D area 1.45), mild MR, mild , nl RV, mild TR
- ECHO showed moderate MS.
Remote Stroke
Prior Breast cancer
Obesity
Lymphedema
Physical Exam
Vital Signs/Labs
Vital Signs
Temp Pulse Resp BP Pulse Ox
97.8 F 94 24 93/64 93
07/21/23 07:47 07/21/23 09:01 07/21/23 08:00 07/21/23 09:01 07/21/23 09:05
07/20/23 07/21/23 07/22/23
06:59 06:59 06:59
Actual Weight 125.7 kg 127.3 kg
07/16/23 13:10
07/19/23 08:34
Magnesium 2.0 mg/dl (1.6-2.3) 07/16/23 13:10
TSH 2.66 uIU/ml (0.47-4.68) 07/16/23 13:10
07/16/23
14:17
Fsv-[id number]-[id number] Pept 8940
Physical Exam
Constitutional: No acute distress and Comfortable
EENT: Anicteric and Moist mucous membranes
Cardiovascular: Rhythm & rate is regular, Pedal edema is absent, JVD present, Systolic murmur present and Diastolic murmur present
Respiratory: Respiratory effort normal, Lungs clear to auscul. and Wheeze Absent
GI: Soft, Non tender and Normal bowel sounds
Neuro/Psych: Alert, Oriented and AO x 3
Data Reviewed
-
Date of Service: July 21, 2023
Medical Decision Making: Reviewed Test Results, Test Interpretation and Review of Case with other Provider
EKG: Tracing Personally Visualized and interpreted
Echo: Tracing Personally Visualized and interpreted
Medical Tests (PFT, Pathology etc): Image Personally Visualized and interpreted (Echo and cath films were reviewed and discussed with Dr. Amador.)
Labs: Labs Reviewed by me
Old Records: Reviewed
Total Time Spent with Patient (in minutes): 55
--- NOTE | 2023-07-21 10:54 | VATNOTE ---
During routine assessment of IV sites, it was noted that pt's R forearm #22 gauge IV was tender to touch with erythema. IV discontinued and relocated to pt's R hand. Assessed inflammation in pt's R antecubital area marked on 07/18: tender to
palpation but no swelling or erythema. Pt states 'it's looking better.' Heat applied to both sites and elevated on a pillow.
[2023-07-21] MEDS: LANOXIN 250 MCG PO (12:42)
--- NOTE | 2023-07-21 15:16 | CM ---
Patient with Dx acute hypoxic respiratory insufficiency-suspect secondary to pulmonary edema, Rapid atrial fibrillation. Plan myocardial perfusion scan with Lexiscan tomorrow. O2 5L. PT recommends HH.
CM Consult: Mahan check Farxiga & Jardiance
Per [employer] Ambulatory Orders, Farxiga (both 5mg and 10mg) are 'not reimbursed'/not a covered medication under patient's insurance, and Jardiance (10mg) requires a prior auth.
Information forwarded to Rashard Haas & Lukas.
Plan watch for home O2 needs.
Plan home with resumption of [facility].
--- NOTE | 2023-07-21 15:24 | PN.CDI ---
CDI
- -
CDI:
Physician Documentation Request
Admit Date: 07/16/23 16:13
Dear Doctor Lukas
Patient presented to ED for evaluation of palpitations.
07/15 Cardiology consult states pt has chronic HFpEF 'Wt is up from discharge - will increase diuresis to 80 mg IV bid ....'
BNP on 07/15 8940
07/[address] '...diffuse coarsening of the interstitial markings throughout both lungs most consistent with pulmonary edema'
07/19 echo conclusion ' compared to 04/16/2022 EF is now moderately reduced 30-35% from 50-55%..'
Please clarify the type and acuity of CHF you are evaluating, treating or monitoring.
Type Acuity
Systolic Acute
Diastolic Chronic
Combined Systolic/Diastolic Acute on Chronic
Other
Use of terms such as suspected, likely, concern for, or probable (associated with a specific diagnosis that is being evaluated, monitored, or treated as if it exists) are acceptable and can be coded in the inpatient setting, when documented at the
time of discharge.
Thank you,
Janet Early RN, BSN
CDI Specialist
tiger text
Please use your independent medical judgment in providing your response.
--- NOTE | 2023-07-21 15:57 | VNURNOTE ---
[facility] resumption of care completed in [facility] after review of chart and discussion with patient. Patient confirmed having [facility] contact number.
[2023-07-21] MEDS: TYLENOL 325 MG PO (20:08)
[2023-07-21] MEDS: CRESTOR 20 MG PO (21:03)
--- NOTE | 2023-07-21 21:29 | W.PN.HOSP.TC ---
Today's Communication/Plan
-
Please see below
Assessment / Plan
Assessment / Plan
Physical Exam
General: No Apparent Distress
HEENT: Moist Mucous Membranes
Respiratory: Crackles (Bibasilar crackles)
Cardiac: S1/S2 and Regular Rate
GI: Soft. Nontender. Positive bowel sounds.
Neuro: AAO x 3
Psych: Calm
Assessment/Plan
Acute shortness of breath acute hypoxic respiratory insufficiency-suspect secondary to pulmonary edema noted on the CT chest.�Patient was also in rapid atrial fibrillation possibly precipitating it.� Hemodynamically stable.�
Improved symptom of shortness of breath. Weight was down to 276 which was her baseline weight at the time of last discharge a week ago.
Continue with Lasix diuresis as blood pressure permits
Hypotension has been an issue so will need to closely monitor BP while adjusting her medications.
Wean O2. Add ICS. OOB to chair.
Nocturnal Hypoxemia
-Patient's oxygen desaturated to the 80s while on 2 L of nasal cannula in the very drafter structural hours of July 19, 2023
-Consulted pulmonary, recommendations appreciated
-BiPAP trial as per pulmonary
Rapid atrial fibrillation/Atrial Tachycardia/Atrial Flutter-patient with recurrent atrial arrhythmias with prior ablation.� She is back on Tikosyn and beta-willie. Pacemaker reprogrammed, digoxin added, dose of Tikosyn increased.�Cardioversion
cannot be done yet due to respiratory status. Cardiology following. Echo ordered
HFrEF
-ECHO on 07/20/23 showed LVEF of 30% - severe systolic dysfunction - global hypokinesis (was 60% EF in April 2022)
-Contine beta-willie, aldactone and Lasix
-So, stress test in the morning
-Farxiga pricing
Pleural bilateral lung parenchymal opacities most prominent in the right apex-radiological concern of pneumonia noted.� Patient is afebrile.� White count is normal.� She has a cough and clear if related to pulmonary edema.� Normal procalcitonin.�
Clinically nontoxic.� Pneumonia suspect probably fluid related. Hold on antibiotics.� No active bronchospasm.� Follow findings with diuresis.
Hypertension-continue the home medication with parameters. Blood pressure on the lower side with hypotensive readings at times.
Hyperlipidemia-continue with statins
Mild [id number]-[id number]-nfnxwa lites. Continue to follow.
Full code
Anticipated Discharge: > 48 hours
Subjective/Interval History
-
Date of Service: July 21, 2023
Patient was seen and examined. She reported feeling okay, denied any new symptoms or complaints.
Objective Data
-
Labs:
Laboratory Results
07/21/23
21:28
WBC Pending
Hgb Pending
Hct Pending
Plt Count Pending
Sodium Pending
Potassium Pending
Chloride Pending
Carbon Dioxide Pending
BUN Pending
Creatinine Pending
Glucose Pending
Calcium Pending
Total Bilirubin Pending
AST Pending
ALT Pending
Alkaline Phosphatase Pending
Vital Signs:
Vital Signs
Temp Pulse Resp BP Pulse Ox
97.5 F 80 18 98/80 94
07/21/23 19:58 07/21/23 20:00 07/21/23 20:00 07/21/23 20:00 07/21/23 20:55
I&O
07/20/23 07/21/23 07/22/23
06:59 06:59 06:59
Intake Total 1200 / 1200 1080 / 1080 960 / 960
Output Total 400 / 400
Balance 800 / 800 1080 / 1080 960 / 960
[2023-07-22] VITALS (17 sets, daily range): BP systolic 80–104; BP diastolic 56–87; BMI 45.3
--- NOTE | 2023-07-22 02:05 | PTCARENOTE ---
Addendum entered by Virginia Fisher RN 07/22/23 06:44:
Pt having episodes of SPO2 dropping to low 70's. Pt on 6L sleeping no apnea observed. Upon waking Pt SPO2 began to recover in to the high 80's. Pt easily arousable oriented x3.
Original Note:
RT at bed side, Pt was placed on BiPAP and did not tolerate well, both full mask and nasal. Pt states she is claustrophobic and can not have anything like that around her face 'to heavy and thick'. Nocturnal Hypoxemia still present, SPO2 dropping
to low 80's. Conversation with RT, High flow attempted and not tolerated, ripping high flow off stating she had same feelings as before. NC placed back on 6L. Education done repeatedly and emotional support given. Pt HR having periods of bradycardia
with pacer attempts. Morning labs set to be collected along with ABG. Conversation with RT and night [employer]HER order changed to [id number] due to respiratory status. Assessment care and vitals as tolerated.
[2023-07-22 04:48] LABS: B.E. 5.8 mmol/L; HCO3 30.6 mmol/L (21-28); O2 Saturation % 98.1 % (94-98); PCO2 44 mmHg (32-35); PO2 92 mmHg (83-108); pH 7.45 (7.35-7.45)
[2023-07-22 05:24] LABS: % Basophils 1.2 % (0-2); % Eosinophils 4.9 % (0-6); % Immature Granulocytes 0.6 % (0-0.5); % Lymphocytes 11.7 % (20.5-51.1); % Monocytes 6.4 % (1.7-9.3); % Neutrophils 75.2 % (42.2-75.2); Absolute Basophils 0.1 10^3/uL (0-0.2); Absolute Eosinophils 0.4 10^3/uL (0-0.7); Absolute Immature Granulocytes 0.1 10^3/uL (0-0.05); Absolute Lymphocytes 0.9 10^3/uL (1.2-3.4); Absolute Monocytes 0.5 10^3/uL (0.1-0.6); Absolute Neutrophils 5.9 10^3/uL (1.4-6.5); Hematocrit 41.8 % (37.0-47.0); Hemoglobin 13.4 g/dL (12.0-16.0); Mean Corp Hgb Conc. 32.1 g/dL (33.0-37.0); Mean Corpuscular Hgb 30.8 pg (27.0-31.0); Mean Corpuscular Volume 96.1 fL (81.0-99.0); Mean Platelet Volume 9.2 fL (7.4-10.4); Nucleated Red Blood Cells % 0 %; Platelet Count 259 10^3/uL (130-400); Red Blood Cell Count 4.35 10^6/uL (4.20-5.40); Red Cell Dist. Width 16.1 % (11.5-14.5); White Blood Cell Count 7.8 10^3/uL (4.8-10.8)
[2023-07-22 05:45] LABS: ALT (SGPT) 15 U/L (0-35); AST (SGOT) 25 U/L (14-36); Albumin 2.9 g/dl (3.5-5.0); Alkaline Phosphatase 107 U/L (38-126); Blood Urea Nitrogen 17 mg/dl (7-17); Calcium 8.9 mg/dl (8.4-10.2); Carbon Dioxide 30 mmol/L (22-30); Chloride 101 mmol/L (98-107); Estimated Creatinine Clearance 121 ml/min; Glucose 94 mg/dl (70-99); Magnesium 1.9 mg/dl (1.6-2.3); Potassium 4.1 mmol/L (3.5-5.1); Sodium 134 mmol/L (135-145); Total Bilirubin 2.3 mg/dl (0.2-1.3); Total Protein 6.8 g/dl (6.3-8.2); eGFR > 60.00
--- NOTE | 2023-07-22 08:38 | W.PN.PUL3 ---
Today's Communication / Plan
-
Given her Hx of severe RAMY with nocturnal desaturation via home sleep study in 03/2020 with traci SpO2 of 67%, and given concern for OHS, I will trial her on BiPAP tonight. If she is intolerant to this, then would transition to CPAP, starting at
5cmH2O, and if she tolerates this then raise to 8cmH2O.
Luigiiscan (2nd half) tomorrow AM
GDMT as per cardiology
Diuresis
Encourge IS
She was using Wixela 250mcg as needed as an outpatient for mild intermittent asthma --> if she feels worsening SOB then we can resume this BID
Pulmonary service will continue to follow along
Assessment
-
Assessment: 68-year-old female with a past medical history of mild intermittent asthma, severe RAMY, former tobacco use disorder, mitral valve stenosis, history of pulmonary nodules and history of CVA who presents with shortness of breath and
palpitations. Week prior to arrival she was fatigued. The night prior to come to the ER she felt severe shortness of breath and could not lay flat because of this. She also felt her heart galloping on her chest with palpitations. She noted chest
pressure but no pain. In the ER she was found to be in rapid A-fib and IV lopressor + IV cardizem were given. CTA chest showed volume overload with several subpleural nodular opacities and a opacity in the posterior right upper lobe concerning for
suspected pneumonia. Lasix was given to the patient. She was admitted to the hospitalist service. Pulmonary now consulted in relationship to this abnormal CTA chest done on 07/16/2023.
Chronic conditions BAKER TEST: Severe RAMY, mild intermittent asthma, history of pulmonary nodules, mitral valve stenosis, former tobacco smoker (10 pack years, quit 22 years ago), peptic ulcer disease, history of CVA with no residual deficits, history of
gastric bypass, depression, anxiety, hypertension, ADD, history of breast cancer s/p lumpectomy/XRT with chemotherapy, GERD
Impression:
#Abnormal CTA chest with subpleural parenchymal nodular opacities bilaterally most prominent in the posterior right lung apex, with mild cardiomegaly and diffuse coarsening of interstitial markings consistent with pulmonary edema - right posterior
lung apex opacity and subpleural opacities are new compared to prior CTA chest from 06/2022
#Persistent A-fib on Eliquis
#Acute respiratory failure with hypoxemia on supplemental oxygen (currently on 4.5 L/min)
#Acute on chronic HFrEF (LVEFL 30-35% via TTE done 07/20/2023)
#RV dysfunction
#Valvular heart disease with mild-moderate TR
#Hyponatremia (mild) - baseline Na 132 - 138
#obesity (BMI: 45.3)
#History of severe RAMY (respiratory event index: 65.7, O2-desaturation down to 67% via portable sleep study on 03/2020); suspected obesity hypoventilation syndrome
#Nocturnal hypoxia - likely due to RAMY that is not being Tx
Plan:
- her largest opacity in posterior RUL is a parenchymal opacity, possibly due to aspiration. Procal negative x2 - hold off on Abx. She has no obvious Sx of PNA. She has remained afebrile and she looks non-toxic. She does have a chronic cough and
had chills for several weeks-months, but still she is not ill-appearing hence will c/t monitor off ABx
- Continue diuresis (lasix 80mg PO daily) and monitor I/O
- Continue supplemental oxygen and titrate as tolerated to maintain SpO2 >90-94%
- Replete K>4, Mg>2
- heart rate control with goal HR<110bpm
- Low sodium diet, fluid restriction
- GDMT as per cardiology
- Lexiscan (2nd half) tomorrow morning (being done as per cardiology given echo findings with concern for ischemic heart disease)
- Maintain MAP>65
- Considering she has Hx of RAMY and also her serum HCO3 is rising, now it is 30 as pf 07/19/2023, I will trial her on BiPAP (nocturnal), and she will need to discuss her sleep disordered breathing in office - likely will need a titration study given
intolerance to CPAP in past and with her BMI being 45, she likely has obesity-hypoventilation syndrome
- If pt spikes fever then start ABx with holley-Cx prior to starting
- Pt needs repeat chest imaging with CT chest without contrast in 6-8 weeks to assess stability of nodular opacities
- DVT ppx: on eliquis
Patient had previously follow-up with the [facility] office with Dr. Arriaga � last office visit on 02/16/2022. She was supposed to follow-up with us for severe RAMY with intolerance of CPAP, asthma, pulmonary nodules and former tobacco use disorder.
Pulmonary service will continue to follow along.
There is a moderate level of medical decision making for this encounter.
Data:
CTA Chest 07-16-2023:
1.). There is no pulmonary embolism
2). There is mild cardiomegaly with diffuse coarsening of the interstitial markings throughout both lungs most consistent with pulmonary edema
3). There are patchy areas of subpleural parenchymal density in both lungs most prominent in the posterior right lung apex worrisome for superimposed pneumonia
4). There is stable mediastinal and bilateral hilar lymphadenopathy
5). Atherosclerosis
6). Low density masses in both lobes of the thyroid which, if clinically indicated, could be best further evaluated and followed with thyroid ultrasound
TTE 07-20-2023:
Technically difficult study and patient is in AF RVR.
�Normal LV size with moderately reduced systolic function.
�LV ejection fraction is 30 to 35% by visual estimation.
�Global diffuse hypokinesis.
�Enlarged right ventricular size. Reduced right ventricular systolic function.
�Moderate mitral stenosis.
�Mild aortic stenosis.
�Mild to moderate tricuspid regurgitation.
�Estimated pulmonary artery pressure of 45 mmHg assuming a right atrial pressure
�of 3 mmHg.
�Compared to prior from April 16, 2022, estimated ejection fraction is now
�moderately reduced 30 to 35% from 50 to 55%.� This could be secondary to atrial
�fibrillation with RVR.� Tricuspid regurgitation is now mild to moderate with
�mildly elevated estimated PASP as above.
Outpatient [facility] Data:
SLEEP STUDIES:
����Portable sleep study : Respiratory event index of 65.7 events per hour. Oxygen desaturation down to 67%. Severe obstructive sleep apnea.
CARDIAC STUDIES:
������ ECHO 01/09/21: LV EF 55-60%, normal RV. Severe dilated LA, moderate MS, mild MR
��������ECHO 03/03/18: EF normal, moderate dilated LA, mild to mod MS.�
RADIOGRAPHIC STUDIES:
������ CT CHEST 02/02/22: numerous scattered pulmonary nodules-- Lingula: 3 mm; RUL: 5 mm, 6 mm; OG: 5mm; RLL: 8mm, 3mm, 3mm; PNA in LLs L>R, scattered opacities throughout lungs also noted, likely infectious. Small left parapneumonic effusion
��������CXR 01/19/22: LLL consolidation/effusion.�
PFT:
������ Elie 02/16/22: FEV1 1.96L 78%, FVC 2.46L 74%, ratio 0.79. Post FEV1 2.16L 86% no BD response (suggests restriction, normal post).�
Subjective Data
-
Date of Service:
Date of Service: July 22, 2023
Chief Complaint: Pulmonary Follow Up
Subjective:
Pt seen this AM. She is doing well. Went down to stress test but BP too low for 2nd half to be completed. Will be done tomorrow. SHe is doing well on 4L/min NC. No chest pain, BURROWS, abd pain, N/V/f/c.
Review of Systems
General: Other (negative unless mentioned above.)
Objective Data
Data Reviewed
Vital Signs / I&O / Oxygen:
Vital Signs
Temp Pulse Resp BP Pulse Ox
98.2 F 92 18 80/66 94
07/22/23 11:00 07/22/23 12:00 07/22/23 12:00 07/22/23 12:00 07/22/23 12:00
Intake and Output
07/21/23 07/22/23 07/23/23
06:59 06:59 06:59
Intake Total 1080 / 1080 1440 / 1440
Balance 1080 / 1080 1440 / 1440
SaO2 94
Nasal Cannula flow liters per 4
minute
Physical Exam
General: Respiratory Distress (Negative) and Comfortable
HEENT: Normocephalic and Anicteric
Cardiovascular: Irregular Rhythm (Irregularly irregular), Peripheral Edema (Negative) and Other (normal rate)
Respiratory: Wheeze (Negative), Crackles (bibasilar), Rhonchi (Negative) and Non-Labored Respirations
GI: Soft, Non Distended and Non Tender
Neurology: Awake and Alert
Skin: Warm and Dry
Labs/Micro/Reports
Lab Data
07/22/23 05:16
07/22/23 05:16
Laboratory Results
07/22/23
04:40
pH 7.45
pCO2 44 H
pO2 92
HCO3 30.6 H
O2 Delivery Level
[2023-07-22] MEDS: SINGULAIR 10 MG PO (09:33)
[2023-07-22] MEDS: ELIQUIS 5 MG PO ×2 (09:33→22:42)
[2023-07-22] MEDS: LASIX 80 MG PO (09:33)
[2023-07-22] MEDS: TOPROL XL 50 MG PO (09:33)
[2023-07-22] MEDS: ALDACTONE 25 MG PO (09:33)
[2023-07-22] MEDS: PROTONIX 40 MG PO (09:33)
[2023-07-22] MEDS: KCL 40 MEQ PO (09:33)
[2023-07-22] MEDS: COLACE PO ×2 (09:34→22:30)
[2023-07-22] MEDS: TIKOSYN 500 MCG PO ×2 (09:34→22:42)
[2023-07-22] MEDS: ZESTRIL 2.5 MG PO (09:34)
[2023-07-22] MEDS: MIRALAX PO (09:34)
[2023-07-22] MEDS: DESENEX/MITRAZOL/ZEASORB 1 APPLIC TOPICAL ×2 (09:35→22:31)
--- NOTE | 2023-07-22 10:04 | W.PN.CD ---
Today's Communication / Plan
-
- Lexiscan stress test today
- Wean off oxygen.
- Ambulate
- IS
Impression / Plan
-
Impression: 68F with palpitations and sob with recent discharge for weakness, af and hypokalemia on 07/09/23.
PMH: Persistent A fib on Eliquis, s/p PVI 09/22/22, repeat PVI and AT/Afl ablation 02/2023, with recurrence and now on Tikosyn, then MDT dual chamber PPM, chronic HFpEF, moderate mitral stenosis, mild , 1st degree AVB, IVCD, HTN, abnormal EKG, CVA
in 1988, left breast cancer 2010 s/p chemo, surgery, and radiation, chronic PIERCE, morbid obesity, and lymphedema.
Plan:
Atrial arrhythmias: Persistent AF/afl/atrial tachycardia
- s/p reprogram pacemaker. changed to AAIR�DDDR from 60-110bpm
-Patient is in A-fib/atrial tachycardia�not responding to Tikosyn 250 mcg
-Increased dose of Tikosyn to 500 mcg twice daily on 07/17/23 - loading completed.
-With changes in pacemaker and programming, now patient is a sensed V sensed with acceptable QTc.
-tolerated higher dose of dofetilide
-now s/o 6 dose of new dose of Tikosyn - Ready for discharge this AM
-continue BB.
-Respiratory status a bit unstable to support elective cardioversion but can be considered if needed once better optimized.
-On apixaban 5mg biD
-added digoxin 250 mcg QD for rate control
-Given patient's extensive scarring of the right and left atria, we did discuss the possibility of addition of a CS lead and AVJ ablation. If the current regimen does not improve patient's rhythm then neck step would be to go ahead and upgrade to
BiV and proceed with AVJ ablation
Chronic HFrEF
- ECHO on 07/20/23 showed LVEF of 30% - severe systolic dysfunction - global hypokinesis
- Normal cors in 2021
- Lexiscan today to rule out any new ischemia
- ECHO was 60% EF with diastolic dysfunction in 04/30
- On Metoprolol, Aldactone and lasix
- Limited due to hypotension
- Added lisinopril 2.5 mg QD 07/21/23
- Change Lasix to 80mg PO QD with intensive monitoring or lytes
- on spironolactone 25 mg daily--will monitor dose as K is slightly up but she will get increased lasix.
- Pricing for the Farxiag vs Jardiance - No covered - work as outpatient for coverage.
PPM
short runs of AT /AF noted.
Rate well controlled.
Moderate MS
- last TTE was on 04/16/22 - moderate MS - gradient 7-9 mmHg
- LIZZY (07/22/22): EF 50-55%, moderate MS (mean grad 4-5, 3D area 1.45), mild MR, mild , nl RV, mild TR
- ECHO showed moderate MS.
Remote Stroke
Prior Breast cancer
Obesity
Lymphedema
Physical Exam
Vital Signs/Labs
Vital Signs
Temp Pulse Resp BP Pulse Ox
98.3 F 93 19 92/60 93
07/22/23 07:37 07/22/23 09:34 07/22/23 08:00 07/22/23 09:34 07/22/23 08:00
07/21/23 07/22/23 07/23/23
06:59 06:59 06:59
Actual Weight 127.3 kg 127.3 kg
07/22/23 05:16
07/22/23 05:16
Magnesium 1.9 mg/dl (1.6-2.3) 07/22/23 05:16
TSH 2.66 uIU/ml (0.47-4.68) 07/16/23 13:10
07/16/23
14:17
[id number] Pept 8940
Physical Exam
Constitutional: No acute distress, Comfortable and Other (o2 overnight with CPAP)
EENT: Anicteric and Moist mucous membranes
Cardiovascular: Rhythm & rate is regular, Pedal edema is absent and JVD pressure is normal
Respiratory: Respiratory effort normal, Lungs clear to auscul. and Wheeze Absent
GI: Soft, Distention absent, Flat and Non tender
Neuro/Psych: Alert, Oriented and AO x 3
Other: Skin
Data Reviewed
-
Date of Service: July 22, 2023
Medical Decision Making: Reviewed Test Results, Test Interpretation and Review of Case with other Provider
EKG: Tracing Personally Visualized and interpreted
Echo: Report Reviewed by me
Labs: Labs Reviewed by me
Old Records: Reviewed
--- NOTE | 2023-07-22 10:35 | PTCARENOTE ---
Patient sent for stress test on 4L NC, SPO2 91%.
[2023-07-22] MEDS: LANOXIN 250 MCG PO (13:22)
[2023-07-22] MEDS: TYLENOL 325 MG PO (13:22)
--- NOTE | 2023-07-22 13:47 | PTCARENOTE ---
Patient returned from first half of stress test. Per cardiac services, pt's BP too low to continue with second half. They will attempt second half tomorrow. If patient has any chest pain overnight, cardiac services needs to be notified prior to
attempting second half tomorrow. Pt's Lisinopril discontinued.
--- NOTE | 2023-07-22 15:38 | VATNOTE ---
Right antecubital irritation resolved.
--- NOTE | 2023-07-22 16:09 | W.PN.HOSP.TC ---
Today's Communication/Plan
-
Stress test today
Assessment / Plan
Assessment / Plan
Physical Exam
General: No Apparent Distress
HEENT: Moist Mucous Membranes
Respiratory: Crackles (Bibasilar crackles)
Cardiac: S1/S2 and Regular Rate
GI: Soft. Nontender. Positive bowel sounds.
Neuro: AAO x 3
Psych: Calm
Assessment/Plan
Acute shortness of breath acute hypoxic respiratory insufficiency-suspect secondary to pulmonary edema noted on the CT chest.�Patient was also in rapid atrial fibrillation possibly precipitating it.� Hemodynamically stable.�
Improved symptom of shortness of breath. Weight was down to 276 which was her baseline weight at the time of last discharge a week ago.
Continue with Lasix diuresis as blood pressure permits
Hypotension has been an issue so will need to closely monitor BP while adjusting her medications.
Wean O2. Add ICS. OOB to chair.
Nocturnal Hypoxemia
-Patient's oxygen desaturated to the 80s while on 2 L of nasal cannula in the very locker room clerk hours of July 19, 2023
-Consulted pulmonary, recommendations appreciated
-BiPAP trial as per pulmonary
Rapid atrial fibrillation/Atrial Tachycardia/Atrial Flutter-patient with recurrent atrial arrhythmias with prior ablation.� She is back on Tikosyn and beta-willie. Pacemaker reprogrammed, digoxin added, dose of Tikosyn increased.�Cardioversion
cannot be done yet due to respiratory status. Cardiology following. Echo ordered
HFrEF
-ECHO on 07/20/23 showed LVEF of 30% - severe systolic dysfunction - global hypokinesis (was 60% EF in April 2022)
-Contine beta-willie, aldactone and Lasix
-Stress test
-Farxiga pricing
Pleural bilateral lung parenchymal opacities most prominent in the right apex-radiological concern of pneumonia noted.� Patient is afebrile.� White count is normal.� She has a cough and clear if related to pulmonary edema.� Normal procalcitonin.�
Clinically nontoxic.� Pneumonia suspect probably fluid related. Hold on antibiotics.� No active bronchospasm.� Follow findings with diuresis.
Hypertension-continue the home medication with parameters. Blood pressure on the lower side with hypotensive readings at times.
Hyperlipidemia-continue with statins
Mild [id number] lites. Continue to follow.
Full code
Anticipated Discharge: > 48 hours
Subjective/Interval History
-
Date of Service: July 22, 2023
Patient was seen and examined. She denied any new symptoms or complaints.
Objective Data
-
Labs:
Laboratory Results
07/22/23 07/22/23
04:40 05:16
WBC 7.8
Hgb 13.4
Hct 41.8
Plt Count 259 D
HCO3 30.6 H
Sodium 134 L
Potassium 4.1
Chloride 101
Carbon Dioxide 30
BUN 17
Creatinine 0.6
Glucose 94
Calcium 8.9
Total Bilirubin 2.3 H
AST 25
ALT 15
Alkaline Phosphatase 107
Vital Signs:
Vital Signs
Temp Pulse Resp BP Pulse Ox
98.2 F 90 27 96/68 97
07/22/23 15:50 07/22/23 16:00 07/22/23 16:00 07/22/23 16:00 07/22/23 16:00
I&O
07/21/23 07/22/23 07/23/23
06:59 06:59 06:59
Intake Total 1080 / 1080 1440 / 1440
Balance 1080 / 1080 1440 / 1440
--- NOTE | 2023-07-22 19:42 | RESPNOTE ---
discussed with pt about wearing cpap tonight per pulmonary note. Pt will not wear cpap or bipap due to interfaces we have here. Pt has a specific interface that she had used in the past but it is not available at the hospital
[2023-07-22] MEDS: ADVAIR HFA 115/21 MCG INHALER 2 PUFF INH (20:55)
[2023-07-22] MEDS: CRESTOR 20 MG PO (22:42)
[2023-07-23] VITALS (13 sets, daily range): BP systolic 87–114; BP diastolic 54–83; PULSE 74–80; O2SAT 93; BMI 44.9
--- NOTE | 2023-07-23 05:02 | PTCARENOTE ---
Addendum entered by Francois Harrell RN 07/23/23 05:07:
pt refused bipap/cpap overnight; kindly refer to RT note.
Original Note:
No acute changes overnight. Incont in diaper. Foam on right buttock changed; small scratch tht is healing present. barrier cream applied to sacrum; blanchable pink with skin intact. Pt able to turn self in bed. 02 increased to 6L; sp02 decreased to
82% when pt in a deep sleep and nasal cannula is out of nose. Tele showing Afib HR 80-90s. BP soft. call simon within reach.
[2023-07-23 05:15] LABS: % Eosinophils 4.2 % (0-6); % Immature Granulocytes 0.7 % (0-0.5); % Lymphocytes 10.7 % (20.5-51.1); % Monocytes 6.2 % (1.7-9.3); % Neutrophils 77.2 % (42.2-75.2); Absolute Basophils 0.1 10^3/uL (0-0.2); Absolute Eosinophils 0.4 10^3/uL (0-0.7); Absolute Immature Granulocytes 0.1 10^3/uL (0-0.05); Absolute Lymphocytes 0.9 10^3/uL (1.2-3.4); Absolute Monocytes 0.5 10^3/uL (0.1-0.6); Absolute Neutrophils 6.7 10^3/uL (1.4-6.5); Hematocrit 40.8 % (37.0-47.0); Mean Corp Hgb Conc. 31.9 g/dL (33.0-37.0); Mean Corpuscular Volume 97.4 fL (81.0-99.0); Mean Platelet Volume 9.4 fL (7.4-10.4); Nucleated Red Blood Cells % 0 %; Platelet Count 286 10^3/uL (130-400); Red Blood Cell Count 4.19 10^6/uL (4.20-5.40); White Blood Cell Count 8.7 10^3/uL (4.8-10.8)
[2023-07-23 05:36] LABS: ALT (SGPT) 17 U/L (0-35); AST (SGOT) 25 U/L (14-36); Albumin 2.9 g/dl (3.5-5.0); Alkaline Phosphatase 105 U/L (38-126); Blood Urea Nitrogen 18 mg/dl (7-17); Carbon Dioxide 31 mmol/L (22-30); Chloride 98 mmol/L (98-107); Estimated Creatinine Clearance 120 ml/min; Glucose 101 mg/dl (70-99); Magnesium 1.9 mg/dl (1.6-2.3); Potassium 4.1 mmol/L (3.5-5.1); Sodium 136 mmol/L (135-145); Total Protein 6.7 g/dl (6.3-8.2); eGFR > 60.00
[2023-07-23] MEDS: COLACE PO ×2 (07:59→21:11)
[2023-07-23] MEDS: MIRALAX PO (07:59)
--- NOTE | 2023-07-23 08:03 | W.PN.CD ---
Today's Communication / Plan
-
- accept rate control for now and pivot to ablate and ASSOCIATE PROFESSOR OF PSYCHOLOGY-P/D
- defer ischemic evaluation to outpatient setting
- adding midodrine for BP support
- RAMY eval ongoing
Impression / Plan
-
Impression: 68F with palpitations and sob with recent discharge for weakness, af and hypokalemia on 07/09/23.
PMH: Persistent A fib on Eliquis, s/p PVI 09/22/22, repeat PVI and AT/Afl ablation 02/2023, with recurrence and now on Tikosyn, then MDT dual chamber PPM, chronic HFpEF, moderate mitral stenosis, mild , 1st degree AVB, IVCD, HTN, abnormal EKG, CVA
in 1988, left breast cancer 2010 s/p chemo, surgery, and radiation, chronic PIERCE, morbid obesity, and lymphedema.
Plan:
Atrial arrhythmias: rate controlled and anticoagulated
-s/p reprogram pacemaker. changed to AAIR�DDDR from 60-110bpm
-Patient is in A-fib/atrial tachycardia�not responding to Tikosyn 250 mcg. Increased dose of Tikosyn to 500 mcg twice daily on 07/17/23 - loading completed.
-With changes in pacemaker and programming, now patient is a sensed V sensed with acceptable QTc.
-tolerated higher dose of dofetilide
-now s/o 6 dose of new dose of Tikosyn
-continue BB. Added digoxin 250 mcg QD for rate control
-Respiratory status a bit unstable to support elective cardioversion but can be considered if needed once better optimized.
-On apixaban 5mg BID
-As per EP - Given patient's extensive scarring of the right and left atria, we did discuss the possibility of addition of a CS lead and AVJ ablation. If the current regimen does not improve patient's rhythm then next step would be to go ahead and
upgrade to BiV and proceed with AVJ ablation
Chronic HFrEF
- ECHO on 07/20/23 showed LVEF of 30% - severe systolic dysfunction - global hypokinesis
- Normal cors in 2021. Lexiscan will be deferred to outpatient setting given relative hypotension/frailty. We think this us due to tachycardia and CAD less likely.
- GDMT
- On Metoprolol, Aldactone and lasix and we are limited due to hypotension.
- ACEi not tolerated
- Pricing for the [employer] vs [employer] - Not covered - work as outpatient for coverage.
Hypotension - add midodrine
PPM
Moderate MS
- last TTE was on 04/16/22 - moderate MS - gradient 7-9 mmHg
- LIZZY (07/22/22): EF 50-55%, moderate MS (mean grad 4-5, 3D area 1.45), mild MR, mild , nl RV, mild TR
- ECHO showed moderate MS.
Remote Stroke
Prior Breast cancer
Obesity
Lymphedema
Dispo
- accept rate control for now and pivot to ablate and ASSOCIATE PROFESSOR OF PSYCHOLOGY-P/D
- defer ischemic evaluation to outpatient setting
- adding midodrine for BP support
- RAMY eval ongoing
Subjective:
No CP, palps. Mild to moderate dyspnea. Claustrophobia with BiPAP
Generic Name Dose Route Start Last Admin
Trade Name Freq PRN Reason Stop Dose Admin
Metoprolol Succinate 50 mg 07/17/23 08:00
Metoprolol 50 Mg Extended Release Tablet PO 08/14/23 07:59
DAILY ALBA
Spironolactone 25 mg 07/17/23 08:00
Spironolactone 25 Mg Tablet PO 08/14/23 07:59
DAILY ALBA
Apixaban 5 mg 07/16/23 20:00
Apixaban (Eliquis) 5 Mg Tablet PO 08/13/23 19:59
BID ALBA
Rosuvastatin Calcium 20 mg 07/16/23 22:00
Rosuvastatin (Crestor) 20 Mg Tablet PO 08/13/23 21:59
HS ALBA
Dofetilide 500 mcg 07/17/23 20:00
Dofetilide 500 Mcg Capsule PO 08/14/23 19:59
Q12H ALBA
Protocol
Digoxin 250 mcg 07/18/23 12:00
Digoxin 250 Mcg Tablet PO 08/15/23 11:59
NOON ALBA
Furosemide 80 mg 07/20/23 08:00
Furosemide 80 Mg Tablet PO 08/17/23 07:59
DAILY ALBA
Physical Exam
Vital Signs/Labs
Vital Signs
Temp Pulse Resp BP Pulse Ox
36.6 C 86 25 99/64 91
07/23/23 03:36 07/23/23 06:00 07/23/23 06:00 07/23/23 06:00 07/23/23 06:00
07/22/23 07/23/23 07/24/23
06:59 06:59 06:59
Actual Weight 280 lb 10.375 oz 278 lb 3.574 oz
07/23/23 04:50
07/23/23 04:50
Magnesium 1.9 mg/dl (1.6-2.3) 07/23/23 04:50
TSH 2.66 uIU/ml (0.47-4.68) 07/16/23 13:10
07/16/23
14:17
Nst-Z-Ihhsrtqegom Pept 8940
Physical Exam
Constitutional: No acute distress
EENT: Anicteric
Cardiovascular: Pedal edema is absent, Systolic murmur absent, Diastolic murmur absent and Rhythm/rate is irregular
Respiratory: Respiratory effort normal, Lungs clear to auscul., Wheeze Absent and Crackles Absent
GI: Soft, Distention absent and Non tender
Neuro/Psych: Alert
Data Reviewed
-
Date of Service: July 23, 2023
EKG: Other (SVT with CVR)
--- NOTE | 2023-07-23 09:08 | W.PN.PUL3 ---
Today's Communication / Plan
-
Given her Hx of severe RAMY with nocturnal desaturation via home sleep study in 03/2020 with traci SpO2 of 67%, and given concern for OHS, I tried to trial her on BiPAP, but she is not tolerating the mask interfaces. I will DC the order as she is
not willing to try another pressure setting given the mask options we have.
Lexiscan (2nd half) when BP more stable
GDMT as per cardiology
Diuresis
Encourge IS
She was using Wixela 250mcg as needed as an outpatient for mild intermittent asthma --> if she feels worsening SOB then we can resume this BID
Repeat chest imaging (CT chest without contrast) in 6-8 weeks to assess stability of nodular opacities
Patient had previously follow-up with the [facility] office with Dr. Arriaga � last office visit on 02/16/2022. She was supposed to follow-up with us for severe RAMY with intolerance of CPAP, asthma, pulmonary nodules and former tobacco use disorder.
Pulmonary service will now sign off. I will arrange for outpatient office follow up with Dr. Arriaga with [facility]. Please re-consult if there are any additional questions/concerns, or if respiratory status deteriorates.
Assessment
-
Assessment: 68-year-old female with a past medical history of mild intermittent asthma, severe RAMY, former tobacco use disorder, mitral valve stenosis, history of pulmonary nodules and history of CVA who presents with shortness of breath and
palpitations. Week prior to arrival she was fatigued. The night prior to come to the ER she felt severe shortness of breath and could not lay flat because of this. She also felt her heart galloping on her chest with palpitations. She noted chest
pressure but no pain. In the ER she was found to be in rapid A-fib and IV lopressor + IV cardizem were given. CTA chest showed volume overload with several subpleural nodular opacities and a opacity in the posterior right upper lobe concerning for
suspected pneumonia. Lasix was given to the patient. She was admitted to the hospitalist service. Pulmonary now consulted in relationship to this abnormal CTA chest done on 07/16/2023.
Chronic conditions MOTEL MAID: Severe RAMY, mild intermittent asthma, history of pulmonary nodules, mitral valve stenosis, former tobacco smoker (10 pack years, quit 22 years ago), peptic ulcer disease, history of CVA with no residual deficits, history of
gastric bypass, depression, anxiety, hypertension, ADD, history of breast cancer s/p lumpectomy/XRT with chemotherapy, GERD
Impression:
#Abnormal CTA chest with subpleural parenchymal nodular opacities bilaterally most prominent in the posterior right lung apex, with mild cardiomegaly and diffuse coarsening of interstitial markings consistent with pulmonary edema - right posterior
lung apex opacity and subpleural opacities are new compared to prior CTA chest from 06/2022
#Persistent A-fib on Eliquis
#Acute respiratory failure with hypoxemia on supplemental oxygen (currently on 4 L/min)
#Acute on chronic HFrEF (LVEF: 30-35% via TTE done 07/20/2023)
#RV dysfunction
#Valvular heart disease with mild-moderate TR
#Hyponatremia (now resolved) - baseline Na 132 - 138
#Obesity (BMI: 45.3)
#History of severe RAMY (respiratory event index: 65.7, O2-desaturation down to 67% via portable sleep study on 03/2020); suspected obesity hypoventilation syndrome
#Nocturnal hypoxia - likely due to RAMY that is not being Tx
Plan:
- Largest opacity is in posterior RUL which is a parenchymal opacity, possibly due to aspiration. Procal negative x2 - hold off on Abx. She has no obvious Sx of PNA. She has remained afebrile and she looks non-toxic. She does have a chronic cough
and had chills for several weeks-months, but still she is not ill-appearing hence will c/t monitor off ABx
- Continue diuresis (lasix 80mg PO daily) and monitor I/O
- Continue supplemental oxygen and titrate as tolerated to maintain SpO2 >90-94%
- Replete K>4, Mg>2
- heart rate control with goal HR<110bpm
- Low sodium diet, fluid restriction
- GDMT as per cardiology
- Lexiscan (2nd half) when BP more stable (stress test being done as per cardiology given new echo findings with concern for ischemic heart disease)
- Maintain MAP>65
- Encourage IS (she is pulling about 1L-1.25L)
- Considering she has Hx of RAMY and also her serum HCO3 is rising, now it is 30 as pf 07/19/2023, I tried to trial her on nocturnal BiPAP, but she has refeused due to the differnet mask interfaces jd we have which she cannot tolerate. She feels
like she is suffocating. She wants to wait until she is discharged for her to re-address her sleep disordered breathing. I made her aware of the connection between sleep apnea and cardiovascular disease including a-fib. She understands this risk.
She will need to discuss her sleep disordered breathing in office - likely will need a titration study given intolerance to CPAP in past and with her BMI being 45, she likely has obesity-hypoventilation syndrome
- If pt spikes fever then start ABx with holley-Cx prior to starting
- Pt needs repeat chest imaging with CT chest without contrast in 6-8 weeks to assess stability of nodular opacities
- DVT ppx: on eliquis
Patient had previously follow-up with the [facility] office with Dr. Arriaga � last office visit on 02/16/2022. She was supposed to follow-up with us for severe RAMY with intolerance of CPAP, asthma, pulmonary nodules and former tobacco use disorder.
Pulmonary service will now sign off. Thank you for allowing us to be involved in the care of this patient. I will arrange for outpatient office follow up with Dr. Arriaga with [facility]. Please re-consult if there are any additional questions/concerns,
or if respiratory status deteriorates.
There is a moderate level of medical decision making for this encounter.
Data:
CTA Chest 07-16-2023:
1.). There is no pulmonary embolism
2). There is mild cardiomegaly with diffuse coarsening of the interstitial markings throughout both lungs most consistent with pulmonary edema
3). There are patchy areas of subpleural parenchymal density in both lungs most prominent in the posterior right lung apex worrisome for superimposed pneumonia
4). There is stable mediastinal and bilateral hilar lymphadenopathy
5). Atherosclerosis
6). Low density masses in both lobes of the thyroid which, if clinically indicated, could be best further evaluated and followed with thyroid ultrasound
TTE 07-20-2023:
Technically difficult study and patient is in AF RVR.
�Normal LV size with moderately reduced systolic function.
�LV ejection fraction is 30 to 35% by visual estimation.
�Global diffuse hypokinesis.
�Enlarged right ventricular size. Reduced right ventricular systolic function.
�Moderate mitral stenosis.
�Mild aortic stenosis.
�Mild to moderate tricuspid regurgitation.
�Estimated pulmonary artery pressure of 45 mmHg assuming a right atrial pressure
�of 3 mmHg.
�Compared to prior from April 16, 2022, estimated ejection fraction is now
�moderately reduced 30 to 35% from 50 to 55%.� This could be secondary to atrial
�fibrillation with RVR.� Tricuspid regurgitation is now mild to moderate with
�mildly elevated estimated PASP as above.
Outpatient [facility] Data:
SLEEP STUDIES:
����Portable sleep study : Respiratory event index of 65.7 events per hour. Oxygen desaturation down to 67%. Severe obstructive sleep apnea.
CARDIAC STUDIES:
������ ECHO 01/09/21: LV EF 55-60%, normal RV. Severe dilated LA, moderate MS, mild MR
��������ECHO 03/03/18: EF normal, moderate dilated LA, mild to mod MS.�
RADIOGRAPHIC STUDIES:
������ CT CHEST 02/02/22: numerous scattered pulmonary nodules-- Lingula: 3 mm; RUL: 5 mm, 6 mm; OG: 5mm; RLL: 8mm, 3mm, 3mm; PNA in LLs L>R, scattered opacities throughout lungs also noted, likely infectious. Small left parapneumonic effusion
��������CXR 01/19/22: LLL consolidation/effusion.�
PFT:
������ Elie 10/10/22: FEV1 1.96L 78%, FVC 2.46L 74%, ratio 0.79. Post FEV1 2.16L 86% no BD response (suggests restriction, normal post).�
Subjective Data
-
Date of Service:
Date of Service: July 23, 2023
Chief Complaint: Pulmonary Follow Up
Subjective:
Seen this AM. Laying in bed in NAD. Refused to wear PAP last night due to the masks that she 'knows she can not tolerate.' Her BP is currently 95/61, SpO2 93% on 4L/min. She feels well. Stress test put on hold this AM due to hypotension.
Midodrine ordered.
Review of Systems
General: Other (negative unless mentioned above)
Objective Data
Data Reviewed
Vital Signs / I&O / Oxygen:
Vital Signs
Temp Pulse Resp BP Pulse Ox
97.5 F 64 17 95/61 94
07/23/23 11:14 07/23/23 12:46 07/23/23 12:00 07/23/23 12:46 07/23/23 12:23
Intake and Output
07/22/23 07/23/23 07/24/23
06:59 06:59 06:59
Intake Total 1440 / 1440 480 / 480
Balance 1440 / 1440 480 / 480
SaO2 94
Nasal Cannula flow liters per 4
minute
Physical Exam
General: Respiratory Distress (Negative) and Comfortable
HEENT: Normocephalic and Anicteric
Cardiovascular: Irregular Rhythm (Irregularly irregular), Peripheral Edema (Negative) and Other (normal rate)
Respiratory: Wheeze (Negative), Crackles (bibasilar), Rhonchi (Negative) and Non-Labored Respirations
GI: Soft, Non Distended and Non Tender
Neurology: Awake and Alert
Skin: Warm and Dry
Labs/Micro/Reports
Lab Data
07/23/23 04:50
07/23/23 04:50
[2023-07-23] MEDS: ALDACTONE 25 MG PO (09:27)
[2023-07-23] MEDS: PROTONIX 40 MG PO (09:27)
[2023-07-23] MEDS: TIKOSYN 500 MCG PO ×2 (09:27→21:15)
[2023-07-23] MEDS: LASIX 80 MG PO (09:27)
[2023-07-23] MEDS: KCL 40 MEQ PO (09:27)
[2023-07-23] MEDS: TOPROL XL 50 MG PO (09:27)
[2023-07-23] MEDS: SINGULAIR 10 MG PO (09:28)
[2023-07-23] MEDS: DESENEX/MITRAZOL/ZEASORB 1 APPLIC TOPICAL ×2 (09:28→21:15)
[2023-07-23] MEDS: ELIQUIS 5 MG PO ×2 (09:28→21:15)
[2023-07-23] MEDS: TYLENOL 325 MG PO (09:30)
--- NOTE | 2023-07-23 10:33 | W.HF.CON ---
Heart Failure
- LV Function
Left ventricular function study result: LV Ejection fraction </= 35%
Ejection Fraction Percentage: 30-35
- ARNI
Patient already on ARNI: No
Heart Failure ARNI Contraindication: Hypotension
- ACEI/ARB
Patient already on ACEI/ARB: No
Heart Failure ACEI/ARB Contraindication: Hypotension
- Beta Víctor
Patient already on Evidence Based Beta Víctor: Yes
- Mineralocorticord Receptor Antagonist
Patient already on MRA: Yes
- SGLT-2 Inhibitor
Patient already on SGLT-2 Inhibitor: No
Heart Failure SGLT-2 Inhibitor Contraindication: Patient Refusal
- Afib Anticoagulation
Patient already on Anticoagulation for Afib: Yes
- NYHA CHF Classification
NYHA CHF Classification Level: Class III - Symptoms w/ min exertion, interferes w/ nml daily activity
- ACC/AHA Stage
ACC/AHA Stage: Stage C: Symptomatic Heart Failure
--- NOTE | 2023-07-23 10:44 | W.PN.HOSP.TC ---
Today's Communication/Plan
-
Please see below
Assessment / Plan
Assessment / Plan
Physical Exam
General: No Apparent Distress
HEENT: Moist Mucous Membranes
Respiratory: Crackles (Bibasilar crackles)
Cardiac: S1/S2 and Regular Rate
GI: Soft. Nontender. Positive bowel sounds.
Neuro: AAO x 3
Psych: Calm
Assessment/Plan
Acute shortness of breath acute hypoxic respiratory insufficiency-suspect secondary to pulmonary edema noted on the CT chest.�Patient was also in rapid atrial fibrillation possibly precipitating it.� Hemodynamically stable.�
Improved symptom of shortness of breath.
Continue with Lasix diuresis as blood pressure permits
Hypotension has been an issue so will need to closely monitor BP while adjusting her medications - and continue Midodrine.
Wean O2. Encourage incentive spirometer. OOB to chair.
Nocturnal Hypoxemia
-Patient's oxygen desaturated to the 80s while on 2 L of nasal cannula in the very [employer] architect hours of July 19, 2023
-Consulted pulmonary, recommendations appreciated
-BiPAP trial as per pulmonary
-Can resume patient's outpatient Wixela 250mcg BID (used outpatient for mild intermittent asthma) if patient feels worsening SOB
Rapid atrial fibrillation/Atrial Tachycardia/Atrial Flutter-patient with recurrent atrial arrhythmias with prior ablation.� She is back on Tikosyn and beta-willie. Pacemaker reprogrammed, digoxin added, dose of Tikosyn increased.�Cardioversion
cannot be done yet due to unstable respiratory status. Continue Eliquis. Cardiology following. Echo ordered, results noted: LVEF of 30% - severe systolic dysfunction - global hypokinesis
Chronic HFrEF
-ECHO on 07/20/23 showed LVEF of 30% - severe systolic dysfunction - global hypokinesis (was 60% EF in April 2022)
-Contine beta-willie, aldactone and Lasix
-TK-I not tolerated
-Stress test outpatient as per cardiology
-Pricing for the Farxiga vs J[employer] - Not covered - work as outpatient for coverage.
Hypotension - continue Midodrine
Pleural bilateral lung parenchymal opacities most prominent in the right apex-radiological concern of pneumonia noted.�Repeat chest imaging (CT chest without contrast) in 6-8 weeks to assess stability of nodular opacities. Patient is afebrile.�
White count is normal.� She has a cough and clear if related to pulmonary edema.� Normal procalcitonin.� Clinically nontoxic.� Pneumonia suspect probably fluid related. Hold on antibiotics.� No active bronchospasm.� Follow findings with diuresis.
Hypertension-continue the home medication with parameters. Blood pressure on the lower side with hypotensive readings at times.
Hyperlipidemia-continue with statins
Mild [id number]-[id number] lites. Continue to follow.
Remote Stroke
Prior Breast cancer
Obesity
Lymphedema
Full code
Anticipated Discharge: 24 - 48 hours
Subjective/Interval History
-
Date of Service: July 23, 2023
Patient was seen and examined. She was still requiring high amounts of oxygen as high 5 to 6 L overnight, she refused BiPAP as she felt claustrophobic with it.
Objective Data
-
Labs:
Laboratory Results
07/23/23
04:50
WBC 8.7
Hgb 13.0
Hct 40.8
Plt Count 286
Sodium 136
Potassium 4.1
Chloride 98
Carbon Dioxide 31 H
BUN 18 H
Creatinine 0.6
Glucose 101 H
Calcium 9.0
Total Bilirubin 2.0 H
AST 25
ALT 17
Alkaline Phosphatase 105
Vital Signs:
Vital Signs
Temp Pulse Resp BP Pulse Ox
98.1 F 84 11 92/55 95
07/23/23 07:10 07/23/23 09:27 07/23/23 09:19 07/23/23 09:27 07/23/23 09:46
I&O
03/07/23/23 07/24/23
06:59 06:59 06:59
Intake Total 1440 / 1440 480 / 480
Balance 1440 / 1440 480 / 480
--- NOTE | 2023-07-23 11:00 | PTCARENOTE ---
Assumed care of patient this morning. Received on 6L NC and able to titrate to 4L during the course of the morning. Pt declined getting up into chair or wheel chair for breakfast, she reports hoping to have more energy this afternoon. Pt is
incontinent of urine and attempted purewick this morning, however, patient asked for removal as she thought she was going to have a BM. She c/o of back pain this morning, medicated with Tylenol, see JUL. BP soft this morning and Midodrine PO added
by cardiology. Assessment, care and VS as charted.
[2023-07-23] MEDS: LANOXIN 250 MCG PO (12:46)
[2023-07-23] MEDS: ProAmatine 5 MG PO ×2 (12:46→17:36)
[2023-07-23] MEDS: CRESTOR 20 MG PO (21:15)
[2023-07-24] VITALS (17 sets, daily range): BP systolic 81–111; BP diastolic 43–78; BMI 44.6
[2023-07-24 05:45] LABS: % Basophils 1.1 % (0-2); % Eosinophils 3.8 % (0-6); % Immature Granulocytes 0.5 % (0-0.5); % Lymphocytes 9.5 % (20.5-51.1); % Monocytes 6.5 % (1.7-9.3); % Neutrophils 78.6 % (42.2-75.2); Absolute Basophils 0.1 10^3/uL (0-0.2); Absolute Eosinophils 0.4 10^3/uL (0-0.7); Absolute Immature Granulocytes 0.1 10^3/uL (0-0.05); Absolute Monocytes 0.7 10^3/uL (0.1-0.6); Hematocrit 40.9 % (37.0-47.0); Hemoglobin 12.8 g/dL (12.0-16.0); Mean Corp Hgb Conc. 31.3 g/dL (33.0-37.0); Mean Corpuscular Hgb 30.8 pg (27.0-31.0); Mean Corpuscular Volume 98.3 fL (81.0-99.0); Mean Platelet Volume 9.8 fL (7.4-10.4); Nucleated Red Blood Cells % 0 %; Platelet Count 311 10^3/uL (130-400); Red Blood Cell Count 4.16 10^6/uL (4.20-5.40); Red Cell Dist. Width 16.1 % (11.5-14.5); White Blood Cell Count 10.1 10^3/uL (4.8-10.8)
[2023-07-24 06:10] LABS: ALT (SGPT) 17 U/L (0-35); AST (SGOT) 27 U/L (14-36); Alkaline Phosphatase 109 U/L (38-126); Blood Urea Nitrogen 19 mg/dl (7-17); Calcium 9.1 mg/dl (8.4-10.2); Carbon Dioxide 29 mmol/L (22-30); Chloride 97 mmol/L (98-107); Estimated Creatinine Clearance 120 ml/min; Glucose 109 mg/dl (70-99); Magnesium 1.9 mg/dl (1.6-2.3); Potassium 4.4 mmol/L (3.5-5.1); Sodium 135 mmol/L (135-145); Total Bilirubin 2.2 mg/dl (0.2-1.3); Total Protein 6.9 g/dl (6.3-8.2); eGFR > 60.00
--- NOTE | 2023-07-24 08:41 | W.PN.CD ---
Today's Communication / Plan
-
EKG as now in atrial paced rhythm
GDMT as BP allows
She remains on oxygen, wean as tolerated
Weight is lowest its been in >1 year
Impression / Plan
-
Impression: 68F with palpitations and sob with recent discharge for weakness, af and hypokalemia on 07/09/23.
PMH: Persistent A fib on Eliquis, s/p PVI 09/22/22, repeat PVI and AT/Afl ablation 02/2023, with recurrence and now on Tikosyn, then MDT dual chamber PPM, chronic HFpEF, moderate mitral stenosis, mild , 1st degree AVB, IVCD, HTN, abnormal EKG, CVA
in 1988, left breast cancer 2010 s/p chemo, surgery, and radiation, chronic PIERCE, morbid obesity, and lymphedema.
Plan:
Atrial arrhythmias: rate controlled and anticoagulated, converted overnight(07/23) into atrial paced rhythm
-s/p reprogram pacemaker. changed to AAIR�DDDR from 60-110bpm
-Patient is in A-fib/atrial tachycardia�not responding to Tikosyn 250 mcg. Increased dose of Tikosyn to 500 mcg twice daily on 07/17/23 - loading completed.
-With changes in pacemaker and programming, now patient is a sensed V sensed with acceptable QTc.
-tolerated higher dose of dofetilide
-now s/o 6 dose of new dose of Tikosyn
-continue BB. Added digoxin 250 mcg QD for rate control
-On apixaban 5mg BID
-As per EP - Given patient's extensive scarring of the right and left atria, we did discuss the possibility of addition of a CS lead and AVJ ablation. If the current regimen does not improve patient's rhythm then next step would be to go ahead and
upgrade to BiV and proceed with AVJ ablation
Chronic HFrEF: weight lowest documented in >1 year per 60mo
- ECHO on 07/20/23 showed LVEF of 30% - severe systolic dysfunction - global hypokinesis
- Normal cors in 2021. Lexiscan will be deferred to outpatient setting given relative hypotension/frailty. We think this us due to tachycardia and CAD less likely.
- GDMT
- On Metoprolol, Aldactone and lasix and we are limited due to hypotension.
- ACEi not tolerated
- Pricing for the [employer] vs [employer] - Not covered - work as outpatient for coverage.
Hypotension - midodrine
PPM
Moderate MS
- last TTE was on 04/16/22 - moderate MS - gradient 7-9 mmHg
- LIZZY (07/22/22): EF 50-55%, moderate MS (mean grad 4-5, 3D area 1.45), mild MR, mild , nl RV, mild TR
- ECHO showed moderate MS.
Remote Stroke
Prior Breast cancer
Obesity
Lymphedema
Dispo
- overnight spont conversion to atrial paced rhythm ECG today
- defer ischemic evaluation to outpatient setting
- adding midodrine for BP support
- RAMY eval ongoing
Subjective:
No CP, palps. Mild to moderate dyspnea. Claustrophobia with BiPAP
Generic Name Dose Route Start Last Admin
Trade Name Freq PRN Reason Stop Dose Admin
Metoprolol Succinate 50 mg 07/17/23 08:00
Metoprolol 50 Mg Extended Release Tablet PO 08/14/23 07:59
DAILY ALBA
Spironolactone 25 mg 07/17/23 08:00
Spironolactone 25 Mg Tablet PO 08/14/23 07:59
DAILY ALBA
Apixaban 5 mg 07/16/23 20:00
Apixaban (Eliquis) 5 Mg Tablet PO 08/13/23 19:59
BID ALBA
Rosuvastatin Calcium 20 mg 07/16/23 22:00
Rosuvastatin (Crestor) 20 Mg Tablet PO 08/13/23 21:59
HS ALBA
Dofetilide 500 mcg 07/17/23 20:00
Dofetilide 500 Mcg Capsule PO 08/14/23 19:59
Q12H ALBA
Protocol
Digoxin 250 mcg 07/18/23 12:00
Digoxin 250 Mcg Tablet PO 08/15/23 11:59
NOON ALBA
Furosemide 80 mg 07/20/23 08:00
Furosemide 80 Mg Tablet PO 08/17/23 07:59
DAILY ALBA
Physical Exam
Vital Signs/Labs
Vital Signs
Temp Pulse Resp BP Pulse Ox
98.7 F 70 23 95/62 91
07/24/23 03:42 07/24/23 06:00 07/24/23 06:00 07/24/23 06:00 07/23/23 23:30
07/23/23 07/24/23 07/25/23
06:59 06:59 06:59
Actual Weight 278 lb 3.574 oz 276 lb 3.827 oz
07/24/23 05:14
07/24/23 05:14
Magnesium 1.9 mg/dl (1.6-2.3) 07/24/23 05:14
TSH 2.66 uIU/ml (0.47-4.68) 07/16/23 13:10
07/16/23
14:17
Xxq-B-Nbhyafiuusw Pept 8940
Physical Exam
Constitutional: No acute distress
EENT: Anicteric
Cardiovascular: Rhythm & rate is regular and Pedal edema is absent
Respiratory: Respiratory effort normal and Lungs clear to auscul.
GI: Soft
Neuro/Psych: AO x 3
Data Reviewed
-
Date of Service: July 24, 2023
EKG: Tracing Personally Visualized and interpreted
Labs: Labs Reviewed by me
[2023-07-24] MEDS: PROTONIX 40 MG PO (08:55)
[2023-07-24] MEDS: LASIX 80 MG PO (08:55)
[2023-07-24] MEDS: TIKOSYN 500 MCG PO ×2 (08:55→20:04)
[2023-07-24] MEDS: SINGULAIR 10 MG PO (08:56)
[2023-07-24] MEDS: KCL 40 MEQ PO (08:56)
[2023-07-24] MEDS: TOPROL XL 50 MG PO (08:56)
[2023-07-24] MEDS: ALDACTONE 25 MG PO (08:57)
[2023-07-24] MEDS: COLACE 100 MG PO (08:59)
[2023-07-24] MEDS: ProAmatine 5 MG PO ×3 (08:59→17:42)
[2023-07-24] MEDS: MIRALAX 17 GRAMS PO (08:59)
[2023-07-24] MEDS: ELIQUIS 5 MG PO ×2 (08:59→20:04)
[2023-07-24] MEDS: DESENEX/MITRAZOL/ZEASORB 1 APPLIC TOPICAL ×2 (09:00→20:05)
[2023-07-24] MEDS: LANOXIN 250 MCG PO (12:15)
--- NOTE | 2023-07-24 13:04 | CM ---
Patient with Dx pulmonary edema, HF, Acute respiratory failure with hypoxemia, atrial fibrillation. O2 6L nc. Home O2 Assessment today. PT recommends HH.
Met with patient and spoke with her friend/neighbor Chas (ph [phone]); the patient is eager to go home tomorrow and is agreeable to home O2 setup with [facility]. IMM completed. Although the patient is not ambulatory she feels she can
manage by herself again and feels able to do her own transfers to her w/c. Patient has meals delivered to her home. Offered Caregiver list however patient not able to afford a private caregiver and will wait for caregiver through the [facility]
Waiver program. Chas agrees to be available at the patient's home for home O2 delivery tomorrow. The patient is aware that [facility] will resume service for her. Patient agrees to ambulance transport to home tomorrow.
Message from Dr Gaytan confirming order for Home O2 6L continuous.
Spoke with [facility]; they do have a high flow O2 concentrator available and can deliver O2 concentrator & portable tanks to patient's home tomorrow. Portable O2 tank will only last about 1 hour at 6L, per [facility]. Referral faxed. Patient's
friend Chas with contact info provided on form.
Spoke pipo Cisneros, [facility]; provided update of plan for d/c tomorrow with new home O2. Their schedule if full for Wednesday and she will request patient to be seen Wednesday. Request is for SN/PT/OT/LUMBER SALVAGER and SW.
Plan confirm home O2 delivery prior to discharge.
[facility], with resumption of [facility], by ambulance.
--- NOTE | 2023-07-24 15:26 | PTCARENOTE ---
Pt continues on 6L O2 via NC with SpO2 ~ 93%; SpO2 would dip into mid-80's when she laid on left side requiring an increase in O2. PIERCE; Pt continues to refuse getting OOB. Discharge tentatively planned for tomorrow - Pt will need to transfer to
w/c at home without assistance. PT attempted to work with patient, however she continued to refuse. Will continue to monitor and assess.
--- NOTE | 2023-07-24 17:51 | W.PN.HOSP.TC ---
Today's Communication/Plan
-
Patient would rather leave tomorrow due to availability of her ride home
Plan to discharge tomorrow if oxygen is set up
Assessment / Plan
Assessment / Plan
Physical Exam
General: No Apparent Distress
HEENT: Moist Mucous Membranes
Respiratory: Crackles (Bibasilar crackles)
Cardiac: S1/S2 and Regular Rate
GI: Soft. Nontender. Positive bowel sounds.
Neuro: AAO x 3
Psych: Calm
Assessment/Plan
Acute shortness of breath acute hypoxic respiratory insufficiency-suspect secondary to pulmonary edema noted on the CT chest.�Patient was also in rapid atrial fibrillation possibly precipitating it.� Hemodynamically stable.�
Improved symptom of shortness of breath.
Continue with Lasix diuresis as blood pressure permits
Hypotension has been an issue so will need to closely monitor BP while adjusting her medications - and continue Midodrine.
Wean O2. Encourage incentive spirometer. OOB to chair.
Nocturnal Hypoxemia
-Patient's oxygen desaturated to the 80s while on 2 L of nasal cannula in the very licensed nuclear control room operator hours of July 19, 2023
-Consulted pulmonary, recommendations appreciated
-BiPAP trial as per pulmonary -- but patient cannot tolerate it due to claustrophobia
-Can resume patient's outpatient Wixela 250mcg BID (used outpatient for mild intermittent asthma) if patient feels worsening SOB
Rapid atrial fibrillation/Atrial Tachycardia/Atrial Flutter-patient with recurrent atrial arrhythmias with prior ablation.� She is back on Tikosyn and beta-willie. Pacemaker reprogrammed, digoxin added, dose of Tikosyn increased.�Cardioversion
cannot be done yet due to unstable respiratory status. Continue Eliquis. Cardiology following. Echo ordered, results noted: LVEF of 30% - severe systolic dysfunction - global hypokinesis
Chronic HFrEF
-ECHO on 07/20/23 showed LVEF of 30% - severe systolic dysfunction - global hypokinesis (was 60% EF in April 2022)
-Contine beta-willie, aldactone and Lasix
-TK-I not tolerated
-Stress test outpatient as per cardiology
-Pricing for the Farxiga vs Jardiance - Not covered - work as outpatient for coverage.
Hypotension - continue Midodrine
Pleural bilateral lung parenchymal opacities most prominent in the right apex-radiological concern of pneumonia noted.�Repeat chest imaging (CT chest without contrast) in 6-8 weeks to assess stability of nodular opacities. Patient is afebrile.�
White count is normal.� She has a cough and clear if related to pulmonary edema.� Normal procalcitonin.� Clinically nontoxic.� Pneumonia suspect probably fluid related. Hold on antibiotics.� No active bronchospasm.� Follow findings with diuresis.
Hypertension-continue the home medication with parameters. Blood pressure on the lower side with hypotensive readings at times.
Hyperlipidemia-continue with statins
Mild ulbrytpwiotx-LRJXIFLB-iaeerw lites. Continue to follow.
Remote Stroke
Prior Breast cancer
Obesity
Lymphedema
Full code
Anticipated Discharge: 24 - 48 hours
Subjective/Interval History
-
Date of Service: July 24, 2023
Patient was seen and examined. She denied any new chest pain or shortness of breath.
Objective Data
-
Labs:
Laboratory Results
07/24/23
05:14
WBC 10.1
Hgb 12.8
Hct 40.9
Plt Count 311
Sodium 135
Potassium 4.4
Chloride 97 L
Carbon Dioxide 29
BUN 19 H
Creatinine 0.6
Glucose 109 H
Calcium 9.1
Total Bilirubin 2.2 H
AST 27
ALT 17
Alkaline Phosphatase 109
Vital Signs:
Vital Signs
Temp Pulse Resp BP Pulse Ox
98.0 F 70 16 106/72 97
07/24/23 11:55 07/24/23 17:42 07/24/23 14:00 07/24/23 17:42 07/24/23 10:36
I&O
07/23/23 07/24/23 07/25/23
06:59 06:59 06:59
Intake Total 480 / 480 240 / 240
Output Total 100 / 100
Balance 480 / 480 140 / 140
--- NOTE | 2023-07-24 17:57 | PTCARENOTE ---
Discussed with patient the importance of getting out of bed prior to returning home. Pt stated she was just 'too tired' and continued to refuse to get OOB.
[2023-07-24] MEDS: ADVAIR HFA 115/21 MCG INHALER 2 PUFF INH (19:53)
[2023-07-24] MEDS: COLACE PO (20:04)
[2023-07-24] MEDS: CRESTOR 20 MG PO (20:04)
[2023-07-25] VITALS (13 sets, daily range): BP systolic 92–118; BP diastolic 53–81; PULSE 70; BMI 45.1
--- NOTE | 2023-07-25 04:45 | PTCARENOTE ---
Pt on 3-6L NC overnight. incont in diaper. Turns self in bed for comfort. afebrile. BP soft but stable. call simon within reach.
[2023-07-25 06:02] LABS: % Eosinophils 1.3 % (0-6); % Immature Granulocytes 0.6 % (0-0.5); % Lymphocytes 9.8 % (20.5-51.1); % Monocytes 8.2 % (1.7-9.3); % Neutrophils 79.1 % (42.2-75.2); Absolute Basophils 0.1 10^3/uL (0-0.2); Absolute Eosinophils 0.1 10^3/uL (0-0.7); Absolute Immature Granulocytes 0.1 10^3/uL (0-0.05); Absolute Lymphocytes 0.9 10^3/uL (1.2-3.4); Absolute Monocytes 0.8 10^3/uL (0.1-0.6); Absolute Neutrophils 7.4 10^3/uL (1.4-6.5); Hemoglobin 11.8 g/dL (12.0-16.0); Mean Corp Hgb Conc. 31.1 g/dL (33.0-37.0); Mean Corpuscular Hgb 30.2 pg (27.0-31.0); Mean Corpuscular Volume 97.2 fL (81.0-99.0); Mean Platelet Volume 9.3 fL (7.4-10.4); Nucleated Red Blood Cells % 0 %; Platelet Count 281 10^3/uL (130-400); Red Blood Cell Count 3.91 10^6/uL (4.20-5.40); Red Cell Dist. Width 16.1 % (11.5-14.5); White Blood Cell Count 9.4 10^3/uL (4.8-10.8)
[2023-07-25 06:11] LABS: ALT (SGPT) 17 U/L (0-35); AST (SGOT) 27 U/L (14-36); Albumin 2.9 g/dl (3.5-5.0); Alkaline Phosphatase 101 U/L (38-126); Blood Urea Nitrogen 17 mg/dl (7-17); Calcium 8.7 mg/dl (8.4-10.2); Carbon Dioxide 28 mmol/L (22-30); Chloride 99 mmol/L (98-107); Estimated Creatinine Clearance 121 ml/min; Glucose 110 mg/dl (70-99); Potassium 4.5 mmol/L (3.5-5.1); Sodium 132 mmol/L (135-145); Total Bilirubin 2.8 mg/dl (0.2-1.3); Total Protein 6.9 g/dl (6.3-8.2); eGFR > 60.00
[2023-07-25] MEDS: COLACE PO (09:22)
[2023-07-25] MEDS: ELIQUIS 5 MG PO ×2 (09:22→20:24)
[2023-07-25] MEDS: SINGULAIR 10 MG PO (09:22)
[2023-07-25] MEDS: DESENEX/MITRAZOL/ZEASORB 1 APPLIC TOPICAL ×2 (09:22→20:25)
[2023-07-25] MEDS: PROTONIX 40 MG PO (09:22)
--- NOTE | 2023-07-25 09:22 | W.PN.CD ---
Today's Communication / Plan
-
wean 02 as tolerated
GDMT as tolerated, limited TTE tomorrow to evaluate EF as now in regular rhythm
Impression / Plan
-
Impression: 68F with palpitations and sob with recent discharge for weakness, af and hypokalemia on 07/09/23.
PMH: Persistent A fib on Eliquis, s/p PVI 09/22/22, repeat PVI and AT/Afl ablation 02/2023, with recurrence and now on Tikosyn, then MDT dual chamber PPM, chronic HFpEF, moderate mitral stenosis, mild , 1st degree AVB, IVCD, HTN, abnormal EKG, CVA
in 1988, left breast cancer 2010 s/p chemo, surgery, and radiation, chronic PIERCE, morbid obesity, and lymphedema.
Plan:
Atrial arrhythmias: rate controlled and anticoagulated, converted overnight(07/23) into atrial paced rhythm
-s/p reprogram pacemaker. changed to AAIR�DDDR from 60-110bpm
-Patient is in A-fib/atrial tachycardia�not responding to Tikosyn 250 mcg. Increased dose of Tikosyn to 500 mcg twice daily on 07/17/23 - loading completed.
-With changes in pacemaker and programming, now patient is a sensed V sensed with acceptable QTc.
-tolerated higher dose of dofetilide
-now s/o 6 dose of new dose of Tikosyn
-continue BB. Added digoxin 250 mcg QD for rate control
-On apixaban 5mg BID
-As per EP - Given patient's extensive scarring of the right and left atria, we did discuss the possibility of addition of a CS lead and AVJ ablation. If the current regimen does not improve patient's rhythm then next step would be to go ahead and
upgrade to BiV and proceed with AVJ ablation
Chronic HFrEF: weight lowest documented in >1 year per [employer]
- ECHO on 07/20/23 showed LVEF of 30% - severe systolic dysfunction - global hypokinesis
- Normal cors in 2021. Lexiscan will be deferred to outpatient setting given relative hypotension/frailty. We think this us due to tachycardia and CAD less likely.
- GDMT
- On Metoprolol, Aldactone and lasix and we are limited due to hypotension.
- ACEi not tolerated
- Pricing for the Hemaxiga vs Jardiance - Not covered - work as outpatient for coverage. \\
- if here tomorrow limited f/u study to evaluate EF as patient is in regular rhythm
Hypotension - midodrine
PPM
Moderate MS
- last TTE was on 04/16/22 - moderate MS - gradient 7-9 mmHg
- LIZZY (07/22/22): EF 50-55%, moderate MS (mean grad 4-5, 3D area 1.45), mild MR, mild , nl RV, mild TR
- ECHO showed moderate MS.
Remote Stroke
Prior Breast cancer
Obesity
Lymphedema
Dispo
- overnight spont conversion to atrial paced rhythm ECG today
- defer ischemic evaluation to outpatient setting
- adding midodrine for BP support
- RAMY eval ongoing
Subjective:
No CP, palps. Mild to moderate dyspnea. Claustrophobia with BiPAP
Generic Name Dose Route Start Last Admin
Trade Name Freq PRN Reason Stop Dose Admin
Metoprolol Succinate 50 mg 07/17/23 08:00
Metoprolol 50 Mg Extended Release Tablet PO 08/14/23 07:59
DAILY ALBA
Spironolactone 25 mg 07/17/23 08:00
Spironolactone 25 Mg Tablet PO 08/14/23 07:59
DAILY ALBA
Apixaban 5 mg 07/16/23 20:00
Apixaban (Eliquis) 5 Mg Tablet PO 08/13/23 19:59
BID ALBA
Rosuvastatin Calcium 20 mg 07/16/23 22:00
Rosuvastatin (Crestor) 20 Mg Tablet PO 08/13/23 21:59
HS ALBA
Dofetilide 500 mcg 07/17/23 20:00
Dofetilide 500 Mcg Capsule PO 08/14/23 19:59
Q12H ALBA
Protocol
Digoxin 250 mcg 07/18/23 12:00
Digoxin 250 Mcg Tablet PO 08/15/23 11:59
NOON ALBA
Furosemide 80 mg 07/20/23 08:00
Furosemide 80 Mg Tablet PO 08/17/23 07:59
DAILY ALBA
Physical Exam
Vital Signs/Labs
Vital Signs
Temp Pulse Resp BP Pulse Ox
98.3 F 70 24 98/53 93
07/25/23 07:57 07/25/23 06:00 07/25/23 06:00 07/25/23 06:00 07/25/23 00:25
07/24/23 07/25/23 07/26/23
06:59 06:59 06:59
Actual Weight 276 lb 3.827 oz 279 lb 5.211 oz
07/25/23 05:43
07/25/23 05:43
Magnesium 1.9 mg/dl (1.6-2.3) 07/24/23 05:14
TSH 2.66 uIU/ml (0.47-4.68) 07/16/23 13:10
07/16/23
14:17
Gvk-L-Njqrnxkwrpm Pept 8940
Physical Exam
Constitutional: No acute distress
EENT: Anicteric
Cardiovascular: Rhythm & rate is regular and Pedal edema is absent
Respiratory: Respiratory effort normal and Lungs clear to auscul.
GI: Soft
Neuro/Psych: Alert and Oriented
Data Reviewed
-
Date of Service: July 25, 2023
EKG: Tracing Personally Visualized and interpreted
Labs: Labs Reviewed by me
[2023-07-25] MEDS: LASIX 80 MG PO (09:23)
[2023-07-25] MEDS: ALDACTONE 25 MG PO (09:23)
[2023-07-25] MEDS: MIRALAX PO (09:23)
[2023-07-25] MEDS: KCL 40 MEQ PO (09:23)
[2023-07-25] MEDS: ProAmatine 5 MG PO ×3 (09:24→18:36)
[2023-07-25] MEDS: TIKOSYN 500 MCG PO ×2 (09:24→20:24)
[2023-07-25] MEDS: TOPROL XL 50 MG PO (09:24)
[2023-07-25] MEDS: TYLENOL 325 MG PO (09:25)
--- NOTE | 2023-07-25 09:42 | CM ---
Patient with Dx pulmonary edema, HF, Acute respiratory failure with hypoxemia, atrial fibrillation. O2 6L nc. PT recommends HH. Patient declined PT & OT on 07/23.
Notified by Dr Gaytan; the patient needs to stay today to have an echo tomorrow - discharge cancelled for today.
Spoke with Osmar Herring; he will hold the O2 delivery until tomorrow. They will plan on delivering the O2 about 1pm tomorrow if patient is discharged. They will contact patient's friend Chas to coordinate delivery.
Spoke with patient's friend/neighbor Chas Torrez (ph [phone]); provided update discharge is on hold until tomorrow. Chas will be available tomorrow to be at patient's house for O2 delivery around 1pm. If patient is not discharged tomorrow
she will not be available after that, as she is leaving to go to their house in the [facility] [facility] for a week. If no discharge tomorrow, patient will need to line up another friend for O2 delivery. Chas expressed concerns about the patient going home
alone- informed her that the patient is certain she wants to go home and feels she can continue to manage on her own. Chas says she plans on talking with the patient about arranging for someone to live with her in exchange for being her caregiver.
Spoke with patient, who is aware that the patient navigator plans to have her stay till tomorrow for an echo. Discussed with patient again concerns about patient going home alone, due to her impaired mobility and need for assistance with transfers.
Patient says she is certain she will be able to manage on her own, and manage w/c transfers to bathroom on her own. Suggested again that she consider hiring a caregiver at home. She was made aware that Chas will be able to help her tomorrow with
O2 delivery.
Ambulance forms on chart.
Plan confirm home O2 delivery prior to discharge.
Plan home tomorrow with Home O2 through [facility], with resumption of [facility], by ambulance.
[2023-07-25] MEDS: LANOXIN 250 MCG PO (12:24)
--- NOTE | 2023-07-25 15:10 | W.PN.HOSP.TC ---
Today's Communication/Plan
-
Cardiology plans to do a repeat echo tomorrow
Still requiring 5 to 6 L of oxygen
Cannot tolerate BiPAP due to claustrophobia
Transfer to tele
Assessment / Plan
Assessment / Plan
Physical Exam
General: No Apparent Distress
HEENT: Moist Mucous Membranes
Respiratory: Crackles (Bibasilar crackles)
Cardiac: S1/S2 and Regular Rate
GI: Soft. Nontender. Positive bowel sounds.
Neuro: AAO x 3
Psych: Calm
Assessment/Plan
Acute shortness of breath acute hypoxic respiratory insufficiency-suspect secondary to pulmonary edema noted on the CT chest.�Patient was also in rapid atrial fibrillation possibly precipitating it.� Hemodynamically stable.�
Improved symptom of shortness of breath.
Continue with Lasix diuresis as blood pressure permits
Hypotension has been an issue so will need to closely monitor BP while adjusting her medications - and continue Midodrine.
Wean O2. Encourage incentive spirometer. OOB to chair.
Nocturnal Hypoxemia
-Patient's oxygen desaturated to the 80s while on 2 L of nasal cannula in the very physician support coordinator hours of July 19, 2023
-Consulted pulmonary, recommendations appreciated
-BiPAP trial as per pulmonary -- but patient cannot tolerate it due to claustrophobia
-Can resume patient's outpatient Wixela 250mcg BID (used outpatient for mild intermittent asthma) if patient feels worsening SOB
Rapid atrial fibrillation/Atrial Tachycardia/Atrial Flutter-patient with recurrent atrial arrhythmias with prior ablation.� She is back on Tikosyn and beta-willie. Pacemaker reprogrammed, digoxin added, dose of Tikosyn increased.�Cardioversion
cannot be done yet due to unstable respiratory status. Continue Eliquis. Cardiology following. Echo ordered, results noted: LVEF of 30% - severe systolic dysfunction - global hypokinesis
Chronic HFrEF
-ECHO on 07/20/23 showed LVEF of 30% - severe systolic dysfunction - global hypokinesis (was 60% EF in April 2022)
-Contine beta-willie, aldactone and Lasix
-TK-I not tolerated
-Stress test outpatient as per cardiology
-Pricing for the [employer] vs [employer] - Not covered - work as outpatient for coverage.
-Cardiology wants to do a a repeat echocardiogram on July 26, 2023
Hypotension - continue Midodrine
Pleural bilateral lung parenchymal opacities most prominent in the right apex-radiological concern of pneumonia noted.�Repeat chest imaging (CT chest without contrast) in 6-8 weeks to assess stability of nodular opacities. Patient is afebrile.�
White count is normal.� She has a cough and clear if related to pulmonary edema.� Normal procalcitonin.� Clinically nontoxic.� Pneumonia suspect probably fluid related. Hold on antibiotics.� No active bronchospasm.� Follow findings with diuresis.
Hypertension-continue the home medication with parameters. Blood pressure on the lower side with hypotensive readings at times.
Hyperlipidemia-continue with statins
Mild hkzvsrcwxyzf-RJWXAPGC-cswdpt lites. Continue to follow.
Remote Stroke
Prior Breast cancer
Obesity
Lymphedema
Full code
Anticipated Discharge: 24 - 48 hours
Subjective/Interval History
-
Date of Service: July 25, 2023
Patient was seen and examined. She reported some wheezing overnight but otherwise denied any other new complaints or symptoms this morning.
Objective Data
-
Labs:
Laboratory Results
07/25/23
05:43
WBC 9.4
Hgb 11.8 L
Hct 38.0
Plt Count 281
Sodium 132 L
Potassium 4.5
Chloride 99
Carbon Dioxide 28
BUN 17
Creatinine 0.6
Glucose 110 H
Calcium 8.7
Total Bilirubin 2.8 H
AST 27
ALT 17
Alkaline Phosphatase 101
Vital Signs:
Vital Signs
Temp Pulse Resp BP Pulse Ox
98.1 F 70 19 103/69 94
07/25/23 11:38 07/25/23 12:24 07/25/23 12:00 07/25/23 12:24 07/25/23 10:53
I&O
07/24/23 07/25/23 07/26/23
06:59 06:59 06:59
Intake Total 240 / 240
Output Total 100 / 100
Balance 140 / 140
[2023-07-25] MEDS: CRESTOR 20 MG PO (20:24)
[2023-07-25] MEDS: COLACE 100 MG PO (20:24)
[2023-07-26] VITALS (10 sets, daily range): BP systolic 70–119; BP diastolic 49–78; BMI 44.7
[2023-07-26 06:53] LABS: % Eosinophils 2.6 % (0-6); % Immature Granulocytes 0.6 % (0-0.5); % Monocytes 7.5 % (1.7-9.3); % Neutrophils 78.3 % (42.2-75.2); Absolute Basophils 0.1 10^3/uL (0-0.2); Absolute Eosinophils 0.2 10^3/uL (0-0.7); Absolute Immature Granulocytes 0.1 10^3/uL (0-0.05); Absolute Lymphocytes 0.9 10^3/uL (1.2-3.4); Absolute Monocytes 0.7 10^3/uL (0.1-0.6); Absolute Neutrophils 7.1 10^3/uL (1.4-6.5); Hemoglobin 12.1 g/dL (12.0-16.0); Mean Corp Hgb Conc. 31.8 g/dL (33.0-37.0); Mean Corpuscular Volume 97.4 fL (81.0-99.0); Mean Platelet Volume 9.6 fL (7.4-10.4); Nucleated Red Blood Cells % 0 %; Platelet Count 275 10^3/uL (130-400); White Blood Cell Count 9.1 10^3/uL (4.8-10.8)
[2023-07-26 07:03] LABS: ALT (SGPT) 16 U/L (0-35); AST (SGOT) 25 U/L (14-36); Albumin 2.9 g/dl (3.5-5.0); Alkaline Phosphatase 99 U/L (38-126); Blood Urea Nitrogen 17 mg/dl (7-17); Calcium 8.7 mg/dl (8.4-10.2); Carbon Dioxide 32 mmol/L (22-30); Chloride 98 mmol/L (98-107); Estimated Creatinine Clearance 120 ml/min; Glucose 104 mg/dl (70-99); Potassium 4.4 mmol/L (3.5-5.1); Sodium 134 mmol/L (135-145); Total Bilirubin 3.5 mg/dl (0.2-1.3); Total Protein 6.9 g/dl (6.3-8.2); eGFR > 60.00
--- NOTE | 2023-07-26 09:58 | W.PN.CD ---
Today's Communication / Plan
-
- Stable for discharge from cardiac stand point.
- Tikosyn increased to 500 mcg BID, Digoxin and KCl added, Midodrine 5 mg tid for hypotension.
- Follow up in 2 weeks with cardiology
- Plan to repeat ECHO with Definity in 3 months.
Impression / Plan
-
Impression: 68F with palpitations and sob with recent discharge for weakness, af and hypokalemia on 07/09/23.
PMH: Persistent A fib on Eliquis, s/p PVI 09/22/22, repeat PVI and AT/Afl ablation 02/2023, with recurrence and now on Tikosyn, then MDT dual chamber PPM, chronic HFpEF, moderate mitral stenosis, mild , 1st degree AVB, IVCD, HTN, abnormal EKG, CVA
in 1988, left breast cancer 2010 s/p chemo, surgery, and radiation, chronic PIERCE, morbid obesity, and lymphedema.
Plan:
Atrial arrhythmias:
- Now in atrial paced rhythm
- Has gone in and out of AT. Now has been stable on A paced rhythm.
-s/p reprogram pacemaker. changed to AAIR�DDDR from 60-110bpm
-Increased dose of Tikosyn to 500 mcg twice daily on 07/17/23 - loading completed.
-With changes in pacemaker and programming, now patient is a sensed V sensed with acceptable QTc.
-tolerated higher dose of dofetilide
-continue BB. Added digoxin 250 mcg QD for rate control
-On apixaban 5mg BID
-As per EP - Given patient's extensive scarring of the right and left atria, we did discuss the possibility of addition of a CS lead and AVJ ablation. If the current regimen does not improve patient's rhythm then next step would be to go ahead and
upgrade to BiV and proceed with AVJ ablation
Chronic HFrEF: weight lowest documented in >1 year per [facility]
- ECHO on 07/20/23 showed LVEF of 30% - severe systolic dysfunction - global hypokinesis
- Normal cors in 2021. Lexiscan will be deferred to outpatient setting given relative hypotension/frailty. We think this us due to tachycardia and CAD less likely.
- Repeat ECHO today 07/26/23 - now with atrial paced rhythm - the LVEF appears to be 40-45%
- GDMT
- On Metoprolol, Aldactone and lasix and we are limited due to hypotension.
- ACEi not tolerated due to hypotension.
- Pricing for the Abine vs OndaVia - Not covered - work as outpatient for coverage. \\
Hypotension - midodrine
PPM
Moderate MS
- last TTE was on 04/16/22 - moderate MS - gradient 7-9 mmHg
- LIZZY (07/22/22): EF 50-55%, moderate MS (mean grad 4-5, 3D area 1.45), mild MR, mild , nl RV, mild TR
- ECHO showed moderate MS.
Remote Stroke
Prior Breast cancer
Obesity
Lymphedema
Dispo
- overnight spont conversion to atrial paced rhythm ECG today
- defer ischemic evaluation to outpatient setting
- adding midodrine for BP support
- RAMY eval ongoing
Subjective:
No CP, palps. Mild to moderate dyspnea. Claustrophobia with BiPAP
Generic Name Dose Route Start Last Admin
Trade Name Freq PRN Reason Stop Dose Admin
Metoprolol Succinate 50 mg 07/17/23 08:00
Metoprolol 50 Mg Extended Release Tablet PO 08/14/23 07:59
DAILY ALBA
Spironolactone 25 mg 07/17/23 08:00
Spironolactone 25 Mg Tablet PO 08/14/23 07:59
DAILY ALBA
Apixaban 5 mg 07/16/23 20:00
Apixaban (Eliquis) 5 Mg Tablet PO 08/13/23 19:59
BID ALBA
Rosuvastatin Calcium 20 mg 07/16/23 22:00
Rosuvastatin (Crestor) 20 Mg Tablet PO 08/13/23 21:59
HS ALBA
Dofetilide 500 mcg 07/17/23 20:00
Dofetilide 500 Mcg Capsule PO 08/14/23 19:59
Q12H ALBA
Protocol
Digoxin 250 mcg 07/18/23 12:00
Digoxin 250 Mcg Tablet PO 08/15/23 11:59
NOON ALBA
Furosemide 80 mg 07/20/23 08:00
Furosemide 80 Mg Tablet PO 08/17/23 07:59
DAILY ALBA
Physical Exam
Vital Signs/Labs
Vital Signs
Temp Pulse Resp BP Pulse Ox
98.9 F 73 14 102/62 93
07/26/23 07:02 07/26/23 08:00 07/25/23 14:00 07/26/23 08:00 07/26/23 09:24
07/25/23 07/26/23 07/27/23
06:59 06:59 06:59
Actual Weight 126.7 kg 125.5 kg
07/26/23 06:16
07/26/23 06:16
Magnesium 1.9 mg/dl (1.6-2.3) 07/24/23 05:14
TSH 2.66 uIU/ml (0.47-4.68) 07/16/23 13:10
07/16/23
14:17
Cwa-V-Tclmilbvnde Pept 8940
Physical Exam
Constitutional: No acute distress and Comfortable
EENT: Anicteric and Moist mucous membranes
Cardiovascular: Rhythm & rate is regular, JVD present and Systolic murmur present
Respiratory: Respiratory effort normal, Lungs clear to auscul. and Crackles Present
GI: Soft, Non tender and Normal bowel sounds
Neuro/Psych: Alert, Oriented and AO x 3
Data Reviewed
-
Date of Service: July 26, 2023
Medical Decision Making: Reviewed Test Results, Independent Historian Assessment and Test Interpretation
EKG: Tracing Personally Visualized and interpreted
Echo: Tracing Personally Visualized and interpreted
Labs: Labs Reviewed by me
Old Records: Reviewed
[2023-07-26] MEDS: ELIQUIS 5 MG PO ×2 (10:22→19:37)
[2023-07-26] MEDS: ProAmatine 5 MG PO ×3 (10:22→18:09)
[2023-07-26] MEDS: LASIX 80 MG PO (10:22)
[2023-07-26] MEDS: PROTONIX 40 MG PO (10:23)
[2023-07-26] MEDS: TIKOSYN 500 MCG PO ×2 (10:23→19:37)
[2023-07-26] MEDS: TOPROL XL 50 MG PO (10:23)
[2023-07-26] MEDS: KCL 40 MEQ PO (10:26)
[2023-07-26] MEDS: ALDACTONE 25 MG PO (10:26)
[2023-07-26] MEDS: SINGULAIR 10 MG PO (10:26)
[2023-07-26] MEDS: TYLENOL 325 MG PO (10:27)
[2023-07-26] MEDS: MIRALAX PO (10:27)
[2023-07-26] MEDS: COLACE PO ×2 (10:27→19:35)
[2023-07-26] MEDS: DESENEX/MITRAZOL/ZEASORB 1 APPLIC TOPICAL ×2 (10:29→19:39)
--- NOTE | 2023-07-26 11:24 | W.PN.HOSP.TC ---
Today's Communication/Plan
-
ECHO
CXR
Wean FIO2
Assessment / Plan
Assessment / Plan
Assessment/Plan
Acute shortness of breath acute hypoxic respiratory insufficiency-suspect secondary to pulmonary edema noted on the CT chest.�Patient was also in rapid atrial fibrillation possibly precipitating it.� Hemodynamically stable.�
Improved symptom of shortness of breath.
Continue with Lasix diuresis as blood pressure permits -wt down to 276 lbs
Hypotension has been an issue so will need to closely monitor BP while adjusting her medications - and continue Midodrine.
Wean O2. Encourage incentive spirometer. OOB to chair.
Increased FiO2 noted.
Repeat chest x-ray today.
Nocturnal Hypoxemia
-Patient's oxygen desaturated to the 80s while on 2 L of nasal cannula in the very [employer] w[employer] consultant hours of July 19, 2023
-Consulted pulmonary, recommendations appreciated
-BiPAP trial as per pulmonary -- but patient cannot tolerate it due to claustrophobia
-Can resume patient's outpatient Wixela 250mcg BID (used outpatient for mild intermittent asthma) if patient feels worsening SOB
- Home O2 arragned
Rapid atrial fibrillation/Atrial Tachycardia/Atrial Flutter-patient with recurrent atrial arrhythmias with prior ablation.� She is back on Tikosyn and beta-willie. Pacemaker reprogrammed, digoxin added, dose of Tikosyn increased.�. Continue
Eliquis. Cardiology following. Echo ordered, results noted: LVEF of 30% - severe systolic dysfunction - global hypokinesis. Plan for repeat echo today not
Chronic HFrEF
-ECHO on 07/20/23 showed LVEF of 30% - severe systolic dysfunction - global hypokinesis (was 60% EF in April 2022)
-Contine beta-willie, aldactone and Lasix
-TK-I not tolerated
-Stress test outpatient as per cardiology
-Pricing for the Farxiga vs Jardiance - Not covered - work as outpatient for coverage.
-Cardiology wants to do a a repeat echocardiogram on July 26, 2023
Hypotension - continue Midodrine
Pleural bilateral lung parenchymal opacities most prominent in the right apex-radiological concern of pneumonia noted.�Repeat chest imaging (CT chest without contrast) in 6-8 weeks to assess stability of nodular opacities. Patient is afebrile.�
White count is normal.� She has a cough and clear if related to pulmonary edema.� Normal procalcitonin.� Clinically nontoxic.� Pneumonia suspect probably fluid related. Hold on antibiotics.� No active bronchospasm.� Follow findings with diuresis.
Hypertension-continue the home medication with parameters. Blood pressure on the lower side with hypotensive readings at times.
Hyperlipidemia-continue with statins
Mild kosiuvvdwjoa-JIHBBGNJ-hjmeqj lites. Continue to follow.
Remote Stroke
Prior Breast cancer
Obesity
Lymphedema
Full code
DC home if ok with cards standpoint and cxr look ok
Prior to that will wean Oxygen
Anticipated Discharge: Today
Subjective/Interval History
-
Date of Service: July 26, 2023
Denies any chest pain or palpitations.
Comfortable breathing. She is on oxygen which she is tolerating.
Objective Data
-
Labs:
Laboratory Results
07/26/23
06:16
WBC 9.1
Hgb 12.1
Hct 38.0
Plt Count 275
Sodium 134 L
Potassium 4.4
Chloride 98
Carbon Dioxide 32 H
BUN 17
Creatinine 0.6
Glucose 104 H
Calcium 8.7
Total Bilirubin 3.5 H
AST 25
ALT 16
Alkaline Phosphatase 99
Vital Signs:
Vital Signs
Temp Pulse Resp BP Pulse Ox
98.9 F 71 14 102/62 93
07/26/23 07:02 07/26/23 10:26 07/25/23 14:00 07/26/23 10:26 07/26/23 09:24
I&O
07/25/23 07/26/23 07/27/23
06:59 06:59 06:59
Intake Total 720 / 720
Balance 720 / 720
Review of Systems
-
Constitutional: Denies Fever
EENT: Denies Sore Throat
Respiratory: Denies Cough
Abdomen/GI: Denies Abdominal Pain, Nausea or Vomiting
Neuro: Denies Dizzy
Physical Exam
-
General: No Apparent Distress
HEENT: Moist Mucous Membranes
Respiratory: Clear to Auscultation
Cardiac: Regular Rhythm and S1/S2; Negative Tachycardic
GI: Soft
Neuro: AO x 3
Data Reviewed
-
Labs: Labs Reviewed by me
--- NOTE | 2023-07-26 11:58 | CM ---
Addendum entered by Omar Del Real 07/26/23 15:09:
According to Medical Reimbursement Manager pt is cleared for discharge today.
CM spoke to [employer] liaison Nima and he confirmed that portable O2 tank with O2 concentrator will be delivered to pt's home today between 3:00 p.m. and 5:00 p.m. and friend Chas will accept delivery. RN is aware to coordinate discharge
order with MD.
to arrange ambulance transport. [facility] completed and has it.
Please fax discharge instructions to VN at [phone].
D/C plan: home with home Oxygen provided by [employer], resumptions of [facility] and friends support.
No other discharge needs identified
Original Note:
CM following re: discharge planning.
Reviewed pt's chart, met with pt. Pt stated she is aware she might be discharged home today and she will need to see warp worker prior to discharge. IMM reviewed, placed in chart, pt has a copy.
According to pt anticipated discharge date today if cleared by warp worker.
CM spoke to [employer] liaison Nima and updated pulse Ox requested. RN is aware. [employer] liaison has been notified of a possible pt's discharge today and he stated he will coordinate home Oxygen delivery.
Pt stated her neighbor Chas will accept home oxygen delivery.
Awaiting cardiology clearance to start discharge process. Pt needs home Oxygen delivered to pt's home prior to discharge.
D/C plan: home today if cleared by warp worker with home Oxygen that provided by [employer], [facility] and friends support. Pt will need ambulance transportation, pt stated there are no steps to enter the house, there is a ramp.
CM will follow to assist pt with discharge home with home oxygen, [facility] and friends support.
--- NOTE | 2023-07-26 12:03 | PTCARENOTE ---
Patient dropping to 79% on RA this morning. Replaced NC back on 4L, pt improved to 92-93%. Pt needing 6L nc at bedtime and throughout night.
--- NOTE | 2023-07-26 12:35 | CARDSERVDEF ---
Echocardiogram with Definity completed after protocol screening completed. Allergies verified.
Patent IV site: __rt hand___
IV site flushed with 0.9% NaCl pre and post administration.
Diluted bolus method utilized to enhance visualization of ventricular quigley.
Total volume given: __5.0_ mL
Patient tolerated all procedures well without complications.
[2023-07-26] MEDS: LANOXIN 250 MCG PO (13:26)
--- NOTE | 2023-07-26 15:45 | W.PN.PUL3 ---
Today's Communication / Plan
-
Check COVID swab
ProBNP pending
Chest x-ray may be lagging, and not truly support representative of acute process
comparing to prior images from June and not to CT imaging from July
Sputum culture if able
Assessment
-
Assessment: 68-year-old female with a past medical history of mild intermittent asthma, severe RAMY, former tobacco use disorder, mitral valve stenosis, history of pulmonary nodules and history of CVA who presents with shortness of breath and
palpitations. Week prior to arrival she was fatigued. The night prior to come to the ER she felt severe shortness of breath and could not lay flat because of this. She also felt her heart galloping on her chest with palpitations. She noted chest
pressure but no pain. In the ER she was found to be in rapid A-fib and IV lopressor + IV cardizem were given. CTA chest showed volume overload with several subpleural nodular opacities and a opacity in the posterior right upper lobe concerning for
suspected pneumonia. Lasix was given to the patient. She was admitted to the hospitalist service. Pulmonary now consulted in relationship to this abnormal CTA chest done on 07/16/2023.
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
gastric bypass, depression, anxiety, hypertension, ADD, history of breast cancer s/p lumpectomy/XRT with chemotherapy, GERD
Impression:
#Abnormal CTA chest with subpleural parenchymal nodular opacities bilaterally most prominent in the posterior right lung apex, with mild cardiomegaly and diffuse coarsening of interstitial markings consistent with pulmonary edema - right posterior
lung apex opacity and subpleural opacities are new compared to prior CTA chest from 06/2022
#Persistent A-fib on Eliquis
#Acute respiratory failure with hypoxemia on supplemental oxygen (currently on 4 L/min)
#Acute on chronic HFrEF (LVEF: 30-35% via TTE done 07/20/2023)
#RV dysfunction
#Valvular heart disease with mild-moderate TR
#Hyponatremia (now resolved) - baseline Na 132 - 138
#Obesity (BMI: 45.3)
#History of severe RAMY (respiratory event index: 65.7, O2-desaturation down to 67% via portable sleep study on 03/2020); suspected obesity hypoventilation syndrome
#Nocturnal hypoxia - likely due to RAMY that is not being Tx
Plan:
Asked to see patient because of worsening chest x-ray.
Patient denies any worsening symptoms but does admit to some mild postnasal drip but states this is chronic.
Presently 94% on 3 L.
Desaturates to 84% when on room air during my examination, without symptoms
Chest exam with mild crackles at the base
Hypotension noted overnight, systolic pressure in the 70s
Moving forward
Differential is broad for progressive bilateral interstitial infiltrates
Infectious pneumonitis, aspiration, pulmonary edema, noncardiogenic pulm edema, or lagging of chest x-ray findings. Last chest x-ray 07/05/2023. CT chest from 07/16/2023 may not be support representative of prior imaging and more consistent with current
imaging
Check Covid swab
BNP pending
Given hypotension overnight, will need to be aware of infectious process
Sputum culture if able. Follow fever curve, white count
Weight down 5 kg since 07/16/2023
Follow clinically
Not ready for discharge until above information available and clinical course going in the right direction
Plan for outpatient CT chest in the next 6 weeks for nodular infiltrates
Unfortunately, patient cannot tolerate BiPAP. Cannot tolerate full facemask
She is willing to try nasal mask, this can be done as an outpatient
Prior pulmonary follow-up information left in chart with sleep clinic
Will continue to follow
Complex decision making process
Will review with primary service
Data:
CTA Chest 07-16-2023:
1.). There is no pulmonary embolism
2). There is mild cardiomegaly with diffuse coarsening of the interstitial markings throughout both lungs most consistent with pulmonary edema
3). There are patchy areas of subpleural parenchymal density in both lungs most prominent in the posterior right lung apex worrisome for superimposed pneumonia
4). There is stable mediastinal and bilateral hilar lymphadenopathy
5). Atherosclerosis
6). Low density masses in both lobes of the thyroid which, if clinically indicated, could be best further evaluated and followed with thyroid ultrasound
TTE 07-20-2023:
Technically difficult study and patient is in AF RVR.
�Normal LV size with moderately reduced systolic function.
�LV ejection fraction is 30 to 35% by visual estimation.
�Global diffuse hypokinesis.
�Enlarged right ventricular size. Reduced right ventricular systolic function.
�Moderate mitral stenosis.
�Mild aortic stenosis.
�Mild to moderate tricuspid regurgitation.
�Estimated pulmonary artery pressure of 45 mmHg assuming a right atrial pressure
�of 3 mmHg.
�Compared to prior from April 16, 2022, estimated ejection fraction is now
�moderately reduced 30 to 35% from 50 to 55%.� This could be secondary to atrial
�fibrillation with RVR.� Tricuspid regurgitation is now mild to moderate with
�mildly elevated estimated PASP as above.
Outpatient [facility] Data:
SLEEP STUDIES:
����Portable sleep study : Respiratory event index of 65.7 events per hour. Oxygen desaturation down to 67%. Severe obstructive sleep apnea.
CARDIAC STUDIES:
������ ECHO 01/09/21: LV EF 55-60%, normal RV. Severe dilated LA, moderate MS, mild MR
��������ECHO 03/03/18: EF normal, moderate dilated LA, mild to mod MS.�
RADIOGRAPHIC STUDIES:
������ CT CHEST 02/02/22: numerous scattered pulmonary nodules-- Lingula: 3 mm; RUL: 5 mm, 6 mm; OG: 5mm; RLL: 8mm, 3mm, 3mm; PNA in LLs L>R, scattered opacities throughout lungs also noted, likely infectious. Small left parapneumonic effusion
��������CXR 01/19/22: LLL consolidation/effusion.�
PFT:
������ [place] 02/16/22: FEV1 1.96L 78%, FVC 2.46L 74%, ratio 0.79. Post FEV1 2.16L 86% no BD response (suggests restriction, normal post).�
Subjective Data
-
Date of Service:
Date of Service: July 26, 2023
Chief Complaint: Pulmonary Follow Up
Subjective:
Asked to see patient because of worsening chest x-ray. Patient denies any changes in pulmonary symptoms. Has mild cough, nonproductive. Denies chest pain, nausea, abdominal pain, diarrhea. Unable to do physical therapy today as according to
patient, low blood pressure. Presently 94% on 3 L. Conversant and in good spirits
Objective Data
Data Reviewed
Vital Signs / I&O / Oxygen:
Vital Signs
Temp Pulse Resp BP Pulse Ox
98.4 F 70 14 116/78 91
07/26/23 11:35 07/26/23 14:00 07/25/23 14:00 07/26/23 13:26 07/26/23 14:00
Intake and Output
07/25/23 07/26/23 07/27/23
06:59 06:59 06:59
Intake Total 720 / 720
Balance 720 / 720
SaO2 91
Nasal Cannula flow liters per 4
minute
Physical Exam
General: Comfortable
HEENT: Normocephalic, Anicteric and Other (Large neck)
Cardiovascular: S1-S2, Regular Rhythm and Peripheral Edema (Negative)
Respiratory: Wheeze (n), Crackles (bibasilar), Rhonchi (n) and Non-Labored Respirations
GI: Soft, Non Distended (Morbidly obese) and Non Tender
Neurology: Awake, Alert and No Motor Deficits (Able to turn over without assistance)
Skin: Warm, Dry, Cyanosis (n), Jaundice (n), Rash (n) and Bruising
Labs/Micro/Reports
Lab Data
07/26/23 06:16
07/26/23 06:16
[2023-07-26 16:47] LABS: COVID-19 Antigen Negative (Negative)
[2023-07-26 17:57] LABS: NT-proBNP 5810 pg/ml
[2023-07-26] MEDS: CRESTOR 20 MG PO (19:37)
[2023-07-27] VITALS (9 sets, daily range): BP systolic 91–125; BP diastolic 60–81; PULSE 70–75; O2SAT 91; BMI 44.5
[2023-07-27 04:00] LABS: % Basophils 0.9 % (0-2); % Eosinophils 3.2 % (0-6); % Immature Granulocytes 0.5 % (0-0.5); % Monocytes 5.7 % (1.7-9.3); % Neutrophils 82.7 % (42.2-75.2); Absolute Basophils 0.1 10^3/uL (0-0.2); Absolute Eosinophils 0.4 10^3/uL (0-0.7); Absolute Immature Granulocytes 0.1 10^3/uL (0-0.05); Absolute Lymphocytes 0.8 10^3/uL (1.2-3.4); Absolute Monocytes 0.6 10^3/uL (0.1-0.6); Hematocrit 41.8 % (37.0-47.0); Hemoglobin 13.1 g/dL (12.0-16.0); Mean Corp Hgb Conc. 31.3 g/dL (33.0-37.0); Mean Corpuscular Volume 98.8 fL (81.0-99.0); Mean Platelet Volume 10.1 fL (7.4-10.4); Nucleated Red Blood Cells % 0 %; Platelet Count 309 10^3/uL (130-400); Red Blood Cell Count 4.23 10^6/uL (4.20-5.40); White Blood Cell Count 10.8 10^3/uL (4.8-10.8)
[2023-07-27 05:40] LABS: ALT (SGPT) 17 U/L (0-35); AST (SGOT) 24 U/L (14-36); Alkaline Phosphatase 107 U/L (38-126); Blood Urea Nitrogen 18 mg/dl (7-17); Calcium 9.1 mg/dl (8.4-10.2); Carbon Dioxide 33 mmol/L (22-30); Chloride 95 mmol/L (98-107); Estimated Creatinine Clearance 120 ml/min; Glucose 117 mg/dl (70-99); Potassium 4.2 mmol/L (3.5-5.1); Sodium 135 mmol/L (135-145); Total Bilirubin 3.1 mg/dl (0.2-1.3); Total Protein 7.2 g/dl (6.3-8.2); eGFR > 60.00
--- NOTE | 2023-07-27 07:05 | W.PN.PUL3 ---
Today's Communication / Plan
-
wean oxygen
Assess oxygen needs with PT, OOBTC
Covid negative
Will require CXR in 4-6 weeks with pulm f/u
Assessment
-
Assessment: 68-year-old female with a past medical history of mild intermittent asthma, severe RAMY, former tobacco use disorder, mitral valve stenosis, history of pulmonary nodules and history of CVA who presents with shortness of breath and
palpitations. Week prior to arrival she was fatigued. The night prior to come to the ER she felt severe shortness of breath and could not lay flat because of this. She also felt her heart galloping on her chest with palpitations. She noted chest
pressure but no pain. In the ER she was found to be in rapid A-fib and IV lopressor + IV cardizem were given. CTA chest showed volume overload with several subpleural nodular opacities and a opacity in the posterior right upper lobe concerning for
suspected pneumonia. Lasix was given to the patient. She was admitted to the hospitalist service. Pulmonary now consulted in relationship to this abnormal CTA chest done on 07/16/2023.
Chronic conditions [employer] AUTHOR: Severe RAMY, mild intermittent asthma, history of pulmonary nodules, mitral valve stenosis, former tobacco smoker (10 pack years, quit 22 years ago), peptic ulcer disease, history of CVA with no residual deficits, history of
gastric bypass, depression, anxiety, hypertension, ADD, history of breast cancer s/p lumpectomy/XRT with chemotherapy, GERD
Impression:
#Abnormal CTA chest with subpleural parenchymal nodular opacities bilaterally most prominent in the posterior right lung apex, with mild cardiomegaly and diffuse coarsening of interstitial markings consistent with pulmonary edema - right posterior
lung apex opacity and subpleural opacities are new compared to prior CTA chest from 06/2022
#Persistent A-fib on Eliquis
#Acute respiratory failure with hypoxemia on supplemental oxygen (currently on 4 L/min)
#Acute on chronic HFrEF (LVEF: 30-35% via TTE done 07/20/2023)
#RV dysfunction
#Valvular heart disease with mild-moderate TR
#Hyponatremia (now resolved) - baseline Na 132 - 138
#Obesity (BMI: 45.3)
#History of severe RAMY (respiratory event index: 65.7, O2-desaturation down to 67% via portable sleep study on 03/2020); suspected obesity hypoventilation syndrome
#Nocturnal hypoxia - likely due to RAMY that is not being Tx
Plan:
Pt is without complaints
On 10L this am. per nursing, desats to 80's while sleeping. 94% on 10L now
Pt denies any sxs
Chest exam with mild crackles at base
No further sig hypotension
Covid negative
BNP trending down
White count normal
Moving forward
Differential is broad for progressive bilateral interstitial infiltrates
Infectious pneumonitis, aspiration, pulmonary edema, noncardiogenic pulm edema, or lagging of chest x-ray findings.
Last chest x-ray 07/05/2023.
CT chest from 07/16/2023
Current CXR may not be assistance representative of prior imaging and lagging improvement in sxs
Encouragingly, pt is without sxs
I decreased oxygen to 5L
Will need to confirm adequate oxygen supplementation prior to dc
PT eval, OOBTC
Not ready for discharge until above information available and clinical course going in the right direction
Plan for outpatient CT chest in the next 6 weeks for nodular infiltrates
Unfortunately, patient cannot tolerate BiPAP. Cannot tolerate full facemask
She is willing to try nasal mask, this can be done as an outpatient
Prior pulmonary follow-up information left in chart with sleep clinic
Will continue to follow
Reviewed with primary service and patient
Data:
CTA Chest 07-16-2023:
1.). There is no pulmonary embolism
2). There is mild cardiomegaly with diffuse coarsening of the interstitial markings throughout both lungs most consistent with pulmonary edema
3). There are patchy areas of subpleural parenchymal density in both lungs most prominent in the posterior right lung apex worrisome for superimposed pneumonia
4). There is stable mediastinal and bilateral hilar lymphadenopathy
5). Atherosclerosis
6). Low density masses in both lobes of the thyroid which, if clinically indicated, could be best further evaluated and followed with thyroid ultrasound
TTE 07-20-2023:
Technically difficult study and patient is in AF RVR.
�Normal LV size with moderately reduced systolic function.
�LV ejection fraction is 30 to 35% by visual estimation.
�Global diffuse hypokinesis.
�Enlarged right ventricular size. Reduced right ventricular systolic function.
�Moderate mitral stenosis.
�Mild aortic stenosis.
�Mild to moderate tricuspid regurgitation.
�Estimated pulmonary artery pressure of 45 mmHg assuming a right atrial pressure
�of 3 mmHg.
�Compared to prior from April 16, 2022, estimated ejection fraction is now
�moderately reduced 30 to 35% from 50 to 55%.� This could be secondary to atrial
�fibrillation with RVR.� Tricuspid regurgitation is now mild to moderate with
�mildly elevated estimated PASP as above.
Outpatient [facility] Data:
SLEEP STUDIES:
����Portable sleep study : Respiratory event index of 65.7 events per hour. Oxygen desaturation down to 67%. Severe obstructive sleep apnea.
CARDIAC STUDIES:
������ ECHO 01/09/21: LV EF 55-60%, normal RV. Severe dilated LA, moderate MS, mild MR
��������ECHO 03/03/18: EF normal, moderate dilated LA, mild to mod MS.�
RADIOGRAPHIC STUDIES:
������ CT CHEST 02/02/22: numerous scattered pulmonary nodules-- Lingula: 3 mm; RUL: 5 mm, 6 mm; OG: 5mm; RLL: 8mm, 3mm, 3mm; PNA in LLs L>R, scattered opacities throughout lungs also noted, likely infectious. Small left parapneumonic effusion
��������CXR 01/19/22: LLL consolidation/effusion.�
PFT:
������ Eldred 02/16/22: FEV1 1.96L 78%, FVC 2.46L 74%, ratio 0.79. Post FEV1 2.16L 86% no BD response (suggests restriction, normal post).�
Subjective Data
-
Date of Service:
Date of Service: July 27, 2023
Chief Complaint: Pulmonary Follow Up
Subjective:
Pt is without complaints. On 10L during my eval 94%. Denies CP, SOB, N, V, Abd pain. Lying flat and conversant
Objective Data
Data Reviewed
Vital Signs / I&O / Oxygen:
Vital Signs
Temp Pulse Resp BP Pulse Ox
98.0 F 70 14 108/64 92
07/27/23 04:02 07/27/23 02:00 07/25/23 14:00 07/27/23 00:00 07/27/23 02:00
Intake and Output
07/26/23 07/27/23 07/28/23
06:59 06:59 06:59
Intake Total 720 / 720 480 / 480
Balance 720 / 720 480 / 480
SaO2 92
Nasal Cannula flow liters per 3
minute
Physical Exam
General: Comfortable
HEENT: Normocephalic, Anicteric and Other (Large neck)
Cardiovascular: S1-S2, Regular Rhythm and Peripheral Edema (Negative)
Respiratory: Wheeze (n), Crackles (mild basilar crackles), Rhonchi (n) and Non-Labored Respirations
GI: Soft, Non Distended (Morbidly obese) and Non Tender
Neurology: Awake, Alert and No Motor Deficits (Able to turn over without assistance)
Skin: Warm, Dry, Rash (n) and Bruising
Labs/Micro/Reports
Lab Data
07/27/23 03:32
07/27/23 04:45
--- NOTE | 2023-07-27 07:11 | W.PN.CD ---
Today's Communication / Plan
-
- increase Midodrine to 10 mg BID
- Metoprolol to 37.5 mg BID
Impression / Plan
-
Impression: 68F with palpitations and sob with recent discharge for weakness, af and hypokalemia on 07/09/23.
PMH: Persistent A fib on Eliquis, s/p PVI 09/22/22, repeat PVI and AT/Afl ablation 02/2023, with recurrence and now on Tikosyn, then MDT dual chamber PPM, chronic HFpEF, moderate mitral stenosis, mild , 1st degree AVB, IVCD, HTN, abnormal EKG, CVA
in 1988, left breast cancer 2010 s/p chemo, surgery, and radiation, chronic PIERCE, morbid obesity, and lymphedema.
Plan:
hypoxic Respiratory Failure
- requiring oxygen and not able to tolerate room air
- Pulm is following
- LVEF is improved with atrial paced rhythm compared to AF/SVT
Atrial arrhythmias:
- Now in atrial paced rhythm
- Has gone in and out of AT. Now has been stable on A paced rhythm.
-s/p reprogram pacemaker. changed to AAIR�DDDR from 60-110bpm
-Increased dose of Tikosyn to 500 mcg twice daily on 07/17/23 - loading completed.
-With changes in pacemaker and programming, now patient is A paced, V sensed with acceptable QTc.
-tolerated higher dose of dofetilide
-Will decrease BB with continued hypotension. Metoprolol to 37.5 mg BID
-Added digoxin 250 mcg QD for rate control
-On apixaban 5mg BID
-As per EP - Given patient's extensive scarring of the right and left atria, we did discuss the possibility of addition of a CS lead and AVJ ablation. If the current regimen does not improve patient's rhythm then next step would be to go ahead and
upgrade to BiV and proceed with AVJ ablation
Chronic HFrEF: weight lowest documented in >1 year per [employer]
- ECHO on 07/20/23 showed LVEF of 30% - severe systolic dysfunction - global hypokinesis
- Normal cors in 2021. Lexiscan will be deferred to outpatient setting given relative hypotension/frailty. We think this us due to tachycardia and CAD less likely.
- Repeat ECHO today 07/26/23 - now with atrial paced rhythm - the LVEF appears to be 40-45%
- GDMT
- On Metoprolol, Aldactone and lasix and we are limited due to hypotension.
- ACEi not tolerated due to hypotension.
- Pricing for the Farxiga vs Jardiance - Not covered - work as outpatient for coverage. \\
Hypotension
- midodrine - increased from 5 tid to 10 BID
PPM
Moderate MS
- last TTE was on 04/16/22 - moderate MS - gradient 7-9 mmHg
- LIZZY (07/22/22): EF 50-55%, moderate MS (mean grad 4-5, 3D area 1.45), mild MR, mild , nl RV, mild TR
- ECHO showed moderate MS.
Remote Stroke
Prior Breast cancer
Obesity
Lymphedema
Dispo
- overnight spont conversion to atrial paced rhythm ECG today
- defer ischemic evaluation to outpatient setting
- adding midodrine for BP support
- RAMY eval ongoing
Subjective:
No CP, palps. Mild to moderate dyspnea. Claustrophobia with BiPAP. still on oxygen.
Generic Name Dose Route Start Last Admin
Trade Name Freq PRN Reason Stop Dose Admin
Metoprolol Succinate 50 mg 07/17/23 08:00
Metoprolol 50 Mg Extended Release Tablet PO 08/14/23 07:59
DAILY ALBA
Spironolactone 25 mg 07/17/23 08:00
Spironolactone 25 Mg Tablet PO 08/14/23 07:59
DAILY ALBA
Apixaban 5 mg 07/16/23 20:00
Apixaban (Eliquis) 5 Mg Tablet PO 08/13/23 19:59
BID ALBA
Rosuvastatin Calcium 20 mg 07/16/23 22:00
Rosuvastatin (Crestor) 20 Mg Tablet PO 08/13/23 21:59
HS ALBA
Dofetilide 500 mcg 07/17/23 20:00
Dofetilide 500 Mcg Capsule PO 08/14/23 19:59
Q12H ALBA
Protocol
Digoxin 250 mcg 07/18/23 12:00
Digoxin 250 Mcg Tablet PO 08/15/23 11:59
NOON ALBA
Furosemide 80 mg 07/20/23 08:00
Furosemide 80 Mg Tablet PO 08/17/23 07:59
DAILY ALBA
Physical Exam
Vital Signs/Labs
Vital Signs
Temp Pulse Resp BP Pulse Ox
98.0 F 70 14 108/64 92
07/27/23 04:02 07/27/23 02:00 07/25/23 14:00 07/27/23 00:00 07/27/23 02:00
07/26/23 07/27/23 07/28/23
06:59 06:59 06:59
Actual Weight 125.5 kg 125 kg
07/27/23 03:32
07/27/23 04:45
Magnesium 1.9 mg/dl (1.6-2.3) 07/24/23 05:14
TSH 2.66 uIU/ml (0.47-4.68) 07/16/23 13:10
07/16/23 07/26/23 07/26/23
14:17 06:16 17:21
[id number]-M-[id number] Pept 8940 Cancelled 5810
Physical Exam
Constitutional: No acute distress and Comfortable
EENT: Anicteric and Moist mucous membranes
Cardiovascular: Rhythm & rate is regular, Pedal edema is absent, JVD pressure is normal and Systolic murmur present
Respiratory: Respiratory effort normal, Crackles Present and Rhonchi Present
GI: Soft, Non tender and Normal bowel sounds
Neuro/Psych: Alert, Oriented and AO x 3
Data Reviewed
-
Date of Service: July 27, 2023
Medical Decision Making: Reviewed Test Results and Independent Historian Assessment
EKG: Tracing Personally Visualized and interpreted
Echo: Report Reviewed by me
Labs: Labs Reviewed by me
Old Records: Reviewed
--- NOTE | 2023-07-27 09:29 | W.PN.HOSP.TC ---
Today's Communication/Plan
-
Continue current medical therapy
Continue to wean oxygen
Assessment / Plan
Assessment / Plan
Assessment/Plan
Acute shortness of breath acute hypoxic respiratory insufficiency-suspect secondary to pulmonary edema noted on the CT chest.�Patient was also in rapid atrial fibrillation possibly precipitating it.� Hemodynamically stable.�
Improved symptom of shortness of breath.
Improved weight. Improved BNP.
Continue with Lasix diuresis as blood pressure permits -wt down to 275 lbs
Hypotension has been an issue so will need to closely monitor BP while adjusting her medications - and continue Midodrine.
Increased FiO2 noted.
Repeat chest x-ray 07/25 shows increased interstitial prominence. Based on above data about CHF. Appreciate pulmonary input. Suspect the chest x-ray may be lagging behind clinical improvement. Patient requiring still higher FiO2, need to down
titrate prior to considering discharge. Currently on 5 L during the daytime. Continue to wean FiO2.
Nocturnal Hypoxemia
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
-Consulted pulmonary, recommendations appreciated
-BiPAP trial as per pulmonary -- but patient cannot tolerate it due to claustrophobia
-Can resume patient's outpatient Wixela 250mcg BID (used outpatient for mild intermittent asthma) if patient feels worsening SOB
- Home O2 arranged
Rapid atrial fibrillation/Atrial Tachycardia/Atrial Flutter-patient with recurrent atrial arrhythmias with prior ablation.� She is back on Tikosyn and beta-willie. Pacemaker reprogrammed, digoxin added, dose of Tikosyn increased.�. Continue
Eliquis. Cardiology following. Echo ordered, results noted: LVEF of 30% - severe systolic dysfunction - global hypokinesis. Repeat echo showed normalization of EF
Chronic HFrEF
-ECHO on 07/20/23 showed LVEF of 30% - severe systolic dysfunction - global hypokinesis (was 60% EF in April 2022)
-Contine beta-willie, aldactone and Lasix
-TK-I not tolerated
-Stress test outpatient as per cardiology
-Pricing for the Valeriy vs Sergioance - Not covered - work as outpatient for coverage.
Hypotension - continue Midodrine
Pleural bilateral lung parenchymal opacities most prominent in the right apex-radiological concern of pneumonia noted.�Repeat chest imaging (CT chest without contrast) in 6-8 weeks to assess stability of nodular opacities. Patient is afebrile.�
White count is normal.� She has a cough and clear if related to pulmonary edema.� Normal procalcitonin.� Clinically nontoxic.� Pneumonia suspect probably fluid related. Hold on antibiotics.� No active bronchospasm.�
Hypertension-continue the home medication with parameters. Blood pressure on the lower side with hypotensive readings at times.
Hyperlipidemia-continue with statins
Mild scsoshjkyrlc-MYSCPRBC-[id number] lites. Continue to follow.
Remote Stroke
Prior Breast cancer
Obesity
Lymphedema
Full code
DC home when oxygenation is better
Anticipated Discharge: Within 24 hours
Subjective/Interval History
-
Date of Service: July 27, 2023
Lying on the right lateral position without any respiratory distress no shortness of breath. She is currently on 5 L of nasal cannula saturating between 93 to 94%.
She required 10 L of oxygen last night. She has severe obstructive sleep apnea, could not tolerate BiPAP.
Denies chest pain or cough. No fever or chills.
Objective Data
-
Labs:
Laboratory Results
07/27/23 07/27/23
03:32 04:45
WBC 10.8
Hgb 13.1
Hct 41.8
Plt Count 309
Sodium Cancelled 135
Potassium Cancelled 4.2
Chloride Cancelled 95 L
Carbon Dioxide Cancelled 33 H
BUN Cancelled 18 H
Creatinine Cancelled 0.6
Glucose Cancelled 117 H
Calcium Cancelled 9.1
Total Bilirubin Cancelled 3.1 H
AST Cancelled 24
ALT Cancelled 17
Alkaline Phosphatase Cancelled 107
Vital Signs:
Vital Signs
Temp Pulse Resp BP Pulse Ox
98.0 F 70 14 108/64 92
07/27/23 04:02 07/27/23 02:00 07/25/23 14:00 07/27/23 00:00 07/27/23 02:00
I&O
07/26/23 07/27/23 07/28/23
06:59 06:59 06:59
Intake Total 720 / 720 480 / 480
Balance 720 / 720 480 / 480
Review of Systems
-
EENT: Denies Sore Throat
Respiratory: Denies Cough
Genitourinary: Denies Dysuria
Neuro: Denies Dizzy
Physical Exam
-
General: No Apparent Distress
HEENT: Moist Mucous Membranes
Respiratory: Crackles (BIBASILAR) and Non Labored Respirations; Negative Wheezes or Accessory Resp Muscle Use
Cardiac: Regular Rhythm and S1/S2
Musculoskeletal: No Edema
Neuro: AO x 3
Psych: Calm; Negative Confused
Data Reviewed
-
Labs: Labs Reviewed by me
[2023-07-27] MEDS: MIRALAX 17 GRAMS PO (09:58)
[2023-07-27] MEDS: TIKOSYN 500 MCG PO ×2 (09:58→20:54)
[2023-07-27] MEDS: ProAmatine 10 MG PO ×2 (09:58→20:54)
[2023-07-27] MEDS: COLACE 100 MG PO (09:59)
[2023-07-27] MEDS: ALDACTONE 25 MG PO (09:59)
[2023-07-27] MEDS: KCL 40 MEQ PO (09:59)
[2023-07-27] MEDS: PROTONIX 40 MG PO (09:59)
[2023-07-27] MEDS: ELIQUIS 5 MG PO ×2 (09:59→20:55)
[2023-07-27] MEDS: SINGULAIR 10 MG PO (09:59)
[2023-07-27] MEDS: LASIX 80 MG PO (09:59)
[2023-07-27] MEDS: TOPROL XL 37.5 MG PO (09:59)
[2023-07-27] MEDS: DESENEX/MITRAZOL/ZEASORB 1 APPLIC TOPICAL ×2 (10:00→20:55)
--- NOTE | 2023-07-27 10:22 | PTCARENOTE ---
Addendum entered by Karen Chilel RN 07/27/23 10:27:
Cannot verify accuracy of vital signs prior to administration.
Original Note:
Assumed care of patient at beginning of this shift from previous RN. Dr Mattson notified this RN that he decreased patient's oxygen from 10L to 5L n/c. POx 91-92%. Currently OOB with PT/OT eating breakfast. See worklist for full assessment and vital
signs; see MAR for med administration.
--- NOTE | 2023-07-27 12:23 | PTCARENOTE ---
Addendum entered by Karen Chilel RN 07/27/23 14:25:
Patient took a nap this afternoon and stated she feels much better.
Original Note:
Patient c/o nausea and vomited several times one hour after morning meds and getting OOB with PT/OT and eating 10% of breakfast. She stated several times that she did not want to take any medications. [place] text sent to Dr Mendoza to make him aware.
--- NOTE | 2023-07-27 12:42 | CM ---
CM following re: discharge planning.
Reviewed pt's chart, met with pt.
Pt was not cleared for discharge yesterday by . Pt became hypoxemic at night and required 10L midflow NC of O2. At this point pt is not medically stable to be discharged.
CM spoke to pt's friend/next door neighbor Cheyanne and she stated she accepted delivery of oxygen concentrator and 5 tanks of O2 yesterday delivered by [employer]. Pt's friend stated she will help the pt with oxygen use when pt arrives from
the hospital.
PT and OT continue to recommend home PT/OT. Pt referred to [facility].
Please fax discharge instructions to [facility] at [phone].
D/C plan: home with home Oxygen provided by [employer] [facility], resumptions of [facility] and friends support.
CM will follow with discharge plan updates as hospitalization progresses
[2023-07-27] MEDS: LANOXIN 250 MCG PO (14:05)
[2023-07-27] MEDS: REFRESH EYE DROPS (PF) 1 DROPS BOTH EYES (17:53)
[2023-07-27] MEDS: CRESTOR 20 MG PO (20:55)
[2023-07-27] MEDS: COLACE PO (20:56)
[2023-07-28] VITALS (7 sets, daily range): BP systolic 90–108; BP diastolic 48–70; BMI 44.5
[2023-07-28 04:06] LABS: % Eosinophils 2.9 % (0-6); % Immature Granulocytes 0.6 % (0-0.5); % Lymphocytes 8.2 % (20.5-51.1); % Monocytes 6.6 % (1.7-9.3); % Neutrophils 80.7 % (42.2-75.2); Absolute Basophils 0.1 10^3/uL (0-0.2); Absolute Eosinophils 0.3 10^3/uL (0-0.7); Absolute Immature Granulocytes 0.1 10^3/uL (0-0.05); Absolute Lymphocytes 0.8 10^3/uL (1.2-3.4); Absolute Monocytes 0.7 10^3/uL (0.1-0.6); Absolute Neutrophils 8.3 10^3/uL (1.4-6.5); Hematocrit 38.9 % (37.0-47.0); Hemoglobin 12.2 g/dL (12.0-16.0); Mean Corp Hgb Conc. 31.4 g/dL (33.0-37.0); Mean Corpuscular Hgb 30.7 pg (27.0-31.0); Mean Platelet Volume 9.7 fL (7.4-10.4); Nucleated Red Blood Cells % 0 %; Platelet Count 310 10^3/uL (130-400); Red Blood Cell Count 3.97 10^6/uL (4.20-5.40); Red Cell Dist. Width 15.7 % (11.5-14.5); White Blood Cell Count 10.3 10^3/uL (4.8-10.8)
[2023-07-28 04:27] LABS: ALT (SGPT) 17 U/L (0-35); AST (SGOT) 29 U/L (14-36); Alkaline Phosphatase 103 U/L (38-126); Blood Urea Nitrogen 19 mg/dl (7-17); Carbon Dioxide 27 mmol/L (22-30); Chloride 99 mmol/L (98-107); Estimated Creatinine Clearance 120 ml/min; Glucose 111 mg/dl (70-99); Potassium 4.5 mmol/L (3.5-5.1); Sodium 133 mmol/L (135-145); Total Bilirubin 3.5 mg/dl (0.2-1.3); Total Protein 7.1 g/dl (6.3-8.2); eGFR > 60.00
--- NOTE | 2023-07-28 06:48 | PTCARENOTE ---
NO acute events overnight. Nausea resolved. Remains on 5 liters NC.
--- NOTE | 2023-07-28 06:53 | W.PN.PUL3 ---
Addendum entered and electronically signed by Mali Mattson MD 07/28/23 09:07:
Reviewed with respiratory. This morning, when patient was on her side, desaturated to 81% requiring 10 L, slow to recover. Patient was without symptoms
Echocardiogram with improved LV function, RV reduced systolic function is noted, normal size
Patient already on Eliquis 5 mg twice a day
Will need to assess with physical therapy, oxygen needs
Hold on plans for discharge until we can confirm stability of oxygenation
Original Note:
Today's Communication / Plan
-
Case management to set up 5 L of oxygen at home
Await PT evaluation today to confirm adequate saturation on 5 L
Prior notes suggest 91%
Possible disposition from pulmonary standpoint
She will need follow-up with pulmonary in the next few weeks
Patient high risk for readmission. She understands
Assessment
-
Assessment: 68-year-old female with a past medical history of mild intermittent asthma, severe RAMY, former tobacco use disorder, mitral valve stenosis, history of pulmonary nodules and history of CVA who presents with shortness of breath and
palpitations. Week prior to arrival she was fatigued. The night prior to come to the ER she felt severe shortness of breath and could not lay flat because of this. She also felt her heart galloping on her chest with palpitations. She noted chest
pressure but no pain. In the ER she was found to be in rapid A-fib and IV lopressor + IV cardizem were given. CTA chest showed volume overload with several subpleural nodular opacities and a opacity in the posterior right upper lobe concerning for
suspected pneumonia. Lasix was given to the patient. She was admitted to the hospitalist service. Pulmonary now consulted in relationship to this abnormal CTA chest done on 07/16/2023.
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
gastric bypass, depression, anxiety, hypertension, ADD, history of breast cancer s/p lumpectomy/XRT with chemotherapy, GERD
Impression:
#Abnormal CTA chest with subpleural parenchymal nodular opacities bilaterally most prominent in the posterior right lung apex, with mild cardiomegaly and diffuse coarsening of interstitial markings consistent with pulmonary edema - right posterior
lung apex opacity and subpleural opacities are new compared to prior CTA chest from 06/2022
#Persistent A-fib on Eliquis
#Acute respiratory failure with hypoxemia on supplemental oxygen (currently on 4 L/min)
#Acute on chronic HFrEF (LVEF: 30-35% via TTE done 07/20/2023)
#RV dysfunction
#Valvular heart disease with mild-moderate TR
#Hyponatremia (now resolved) - baseline Na 132 - 138
#Obesity (BMI: 45.3)
#History of severe RAMY (respiratory event index: 65.7, O2-desaturation down to 67% via portable sleep study on 03/2020); suspected obesity hypoventilation syndrome
#Nocturnal hypoxia - likely due to RAMY that is not being Tx
Plan:
Pt is without complaints
Presently on 5 L since yesterday, 93 to 95% during the day while awake, 88% while sleeping
Mild posterior crackles noted
No further sig hypotension
Covid negative
BNP trending down
White count normal
Moving forward
Differential is broad for progressive bilateral interstitial infiltrates
Infectious pneumonitis, aspiration, pulmonary edema, noncardiogenic pulm edema, or lagging of chest x-ray findings.
Last chest x-ray 07/05/2023.
CT chest from 07/16/2023
Suspect that chest x-ray from 07/26/2023 is not traffic workforce representative of current hospital stay, prior imaging was 07/05/2023
Encouragingly, pt is without sxs
Has been maintained on 5 L over the last 24 hours
PT notes suggest adequate saturation of 91%
Will need to confirm adequate oxygen supplementation prior to dc
PT eval, OOBTC ongoing. Patient states she will not be going to rehabilitation
Will need to confirm adequate oxygen therapy at home, able to go to 5 L at rest
Plan for outpatient CT chest in the next 6 weeks for nodular infiltrates
Unfortunately, patient cannot tolerate BiPAP. Cannot tolerate full facemask
She is willing to try nasal mask, this can be done as an outpatient
Patient aware of risks and ramifications of not using BiPAP
Prior pulmonary follow-up information left in chart with sleep clinic
Will continue to follow
Disposition efforts
Reviewed with primary service and patient
Data:
CTA Chest 07-16-2023:
1.). There is no pulmonary embolism
2). There is mild cardiomegaly with diffuse coarsening of the interstitial markings throughout both lungs most consistent with pulmonary edema
3). There are patchy areas of subpleural parenchymal density in both lungs most prominent in the posterior right lung apex worrisome for superimposed pneumonia
4). There is stable mediastinal and bilateral hilar lymphadenopathy
5). Atherosclerosis
6). Low density masses in both lobes of the thyroid which, if clinically indicated, could be best further evaluated and followed with thyroid ultrasound
TTE 07-20-2023:
Technically difficult study and patient is in AF RVR.
�Normal LV size with moderately reduced systolic function.
�LV ejection fraction is 30 to 35% by visual estimation.
�Global diffuse hypokinesis.
�Enlarged right ventricular size. Reduced right ventricular systolic function.
�Moderate mitral stenosis.
�Mild aortic stenosis.
�Mild to moderate tricuspid regurgitation.
�Estimated pulmonary artery pressure of 45 mmHg assuming a right atrial pressure
�of 3 mmHg.
�Compared to prior from April 16, 2022, estimated ejection fraction is now
�moderately reduced 30 to 35% from 50 to 55%.� This could be secondary to atrial
�fibrillation with RVR.� Tricuspid regurgitation is now mild to moderate with
�mildly elevated estimated PASP as above.
Outpatient [facility] Data:
SLEEP STUDIES:
����Portable sleep study : Respiratory event index of 65.7 events per hour. Oxygen desaturation down to 67%. Severe obstructive sleep apnea.
CARDIAC STUDIES:
������ ECHO 01/09/21: LV EF 55-60%, normal RV. Severe dilated LA, moderate MS, mild MR
��������ECHO 03/03/18: EF normal, moderate dilated LA, mild to mod MS.�
RADIOGRAPHIC STUDIES:
������ CT CHEST 02/02/22: numerous scattered pulmonary nodules-- Lingula: 3 mm; RUL: 5 mm, 6 mm; OG: 5mm; RLL: 8mm, 3mm, 3mm; PNA in LLs L>R, scattered opacities throughout lungs also noted, likely infectious. Small left parapneumonic effusion
��������CXR 01/19/22: LLL consolidation/effusion.�
PFT:
������ Elie 02/16/22: FEV1 1.96L 78%, FVC 2.46L 74%, ratio 0.79. Post FEV1 2.16L 86% no BD response (suggests restriction, normal post).�
Subjective Data
-
Date of Service:
Date of Service: July 28, 2023
Chief Complaint: Pulmonary Follow Up
Subjective:
Patient feels better overall. Less fatigue, less short of breath. She gets occasional chest discomfort at rest. Denies nausea, significant cough. Remains on 5 L. Mild nausea earlier, resolved
Objective Data
Data Reviewed
Vital Signs / I&O / Oxygen:
Vital Signs
Temp Pulse Resp BP Pulse Ox
98.9 F 85 14 104/70 94
07/28/23 03:17 07/28/23 04:00 07/25/23 14:00 07/28/23 04:00 07/28/23 04:00
Intake and Output
07/26/23 07/27/23 07/28/23
06:59 06:59 06:59
Intake Total 720 / 720 480 / 480
Balance 720 / 720 480 / 480
SaO2 94
Nasal Cannula flow liters per 5
minute
Physical Exam
General: Comfortable
HEENT: Normocephalic, Anicteric and Other (Large neck)
Cardiovascular: S1-S2, Regular Rhythm and Peripheral Edema (Negative)
Respiratory: Wheeze (n), Crackles (mild basilar crackles), Rhonchi (n) and Non-Labored Respirations
GI: Soft, Non Distended (Morbidly obese) and Non Tender
Neurology: Awake, Alert and No Motor Deficits (Able to turn over without assistance)
Skin: Warm, Dry, Rash (n) and Bruising
Labs/Micro/Reports
Lab Data
07/28/23 03:40
07/28/23 03:40
--- NOTE | 2023-07-28 08:07 | RESPNOTE ---
patient sleeping on LEFT side with 5L O2, increased to 10L O2 by RN. still with desat to 81%. no observed apnea but mouth open.
[2023-07-28] MEDS: ProAmatine 10 MG PO ×2 (08:22→19:18)
[2023-07-28] MEDS: LASIX 80 MG PO (08:23)
[2023-07-28] MEDS: PROTONIX 40 MG PO (08:23)
[2023-07-28] MEDS: DESENEX/MITRAZOL/ZEASORB 1 APPLIC TOPICAL (08:23)
[2023-07-28] MEDS: TIKOSYN 500 MCG PO ×2 (08:23→19:18)
[2023-07-28] MEDS: ALDACTONE 25 MG PO (08:23)
[2023-07-28] MEDS: SINGULAIR 10 MG PO (08:23)
[2023-07-28] MEDS: MIRALAX PO (08:26)
[2023-07-28] MEDS: KCL 40 MEQ PO (08:56)
[2023-07-28] MEDS: ELIQUIS 5 MG PO ×2 (08:56→19:18)
[2023-07-28] MEDS: COLACE PO ×2 (08:56→19:20)
[2023-07-28] MEDS: TOPROL XL 37.5 MG PO (08:56)
--- NOTE | 2023-07-28 09:40 | PTCARENOTE ---
Assumed care of patient at beginning of this shift from previous RN. POx 70-80% with patient asleep, laying on her left side. O2 increased to 10L n/c until POx increased to 91%. Patient then was awake to take meds; POx 93% on 5L n/c. Dr Mendoza made
aware. He stated that he spoke with pulmonary and oxygen not to be increased above 5L n/c and patient may have abgs ordered tomorrow to assess; he will enter order. See worklist for full assessment and vital signs; see MAR for med administration.
--- NOTE | 2023-07-28 09:44 | W.PN.HOSP.TC ---
Today's Communication/Plan
-
DC planning
Assessment / Plan
Assessment / Plan
Assessment/Plan
Acute shortness of breath acute hypoxic respiratory insufficiency-suspect secondary to pulmonary edema noted on the CT chest.�Patient was also in rapid atrial fibrillation possibly precipitating it.� Hemodynamically stable.�
Improved symptom of shortness of breath.
Improved weight. Improved BNP.
Continue with Lasix diuresis as blood pressure permits -wt down to 275 lbs
Hypotension has been an issue so will need to closely monitor BP while adjusting her medications - and continue Midodrine.
Increased FiO2 noted.
Repeat chest x-ray 07/25 shows increased interstitial prominence. Appreciate pulmonary input. Suspect the chest x-ray may be lagging behind clinical improvement. Patient requiring still higher FiO2, need to down titrate prior to considering
discharge. Currently on 5 L during the daytime. Continue to wean FiO2.
Nocturnal Hypoxemia
Severe untreated RAMY
-Patient's oxygen desaturates during sleep severely
-BiPAP trial as per pulmonary -- but patient cannot tolerate it due to claustrophobia
- For repeat ABG in am and if hypercapnic will arrange nasal mask which pt is agreeable now
-cw patient's outpatient Wixela 250mcg BID (used outpatient for mild intermittent asthma) if patient feels worsening SOB
- Home O2 arranged - she would need 5l at rest on DC
Rapid atrial fibrillation/Atrial Tachycardia/Atrial Flutter-patient with recurrent atrial arrhythmias with prior ablation.� She is back on Tikosyn and beta-willie. Pacemaker reprogrammed, digoxin added, dose of Tikosyn increased.�. Continue
Eliquis. Cardiology following. Echo ordered, results noted: LVEF of 30% - severe systolic dysfunction - global hypokinesis. Repeat echo showed normalization of EF
Chronic HFrEF
-ECHO on 07/20/23 showed LVEF of 30% - severe systolic dysfunction - global hypokinesis (was 60% EF in April 2022)
-Contine beta-willie, aldactone and Lasix
-TK-I not tolerated
-Stress test outpatient as per cardiology
-Pricing for the Farxiga vs Jardiance - Not covered - work as outpatient for coverage.
Hypotension - continue Midodrine
Pleural bilateral lung parenchymal opacities most prominent in the right apex-radiological concern of pneumonia noted.�Repeat chest imaging (CT chest without contrast) in 6-8 weeks to assess stability of nodular opacities. Patient is afebrile.�
White count is normal.� She has a cough and clear if related to pulmonary edema.� Normal procalcitonin.� Clinically nontoxic.� Pneumonia suspect probably fluid related. Hold on antibiotics.� No active bronchospasm.�
Hypertension-continue the home medication with parameters. Blood pressure on the lower side with hypotensive readings at times.
Hyperlipidemia-continue with statins
Mild cfephhmyogir-[id number]-mckezw lites. Continue to follow.
Remote Stroke
Prior Breast cancer
Obesity
Lymphedema
Full code
DC home in am likely depending on her ABG in am
Anticipated Discharge: Within 24 hours
Subjective/Interval History
-
Date of Service: July 28, 2023
Patient is lying on the right lateral side. Denies any shortness of breath.
She is on 5 L when I entered the room and she was sleeping. Oxygenation was 90% and when she wakes up starts to talk it goes up to 94%.
Patient during the sleep dips down further and requiring higher FiO2 during sleep.
Denies chest pain.
No nausea vomiting.
Denies lightheadedness.
Objective Data
-
Labs:
Laboratory Results
07/28/23
03:40
WBC 10.3
Hgb 12.2
Hct 38.9
Plt Count 310
Sodium 133 L
Potassium 4.5
Chloride 99
Carbon Dioxide 27
BUN 19 H
Creatinine 0.6
Glucose 111 H
Calcium 9.0
Total Bilirubin 3.5 H
AST 29
ALT 17
Alkaline Phosphatase 103
Vital Signs:
Vital Signs
Temp Pulse Resp BP Pulse Ox
98.4 F 86 14 93/48 83
07/28/23 07:43 07/28/23 08:00 07/25/23 14:00 07/28/23 08:00 07/28/23 08:00
I&O
07/27/23 07/28/23 07/29/23
06:59 06:59 06:59
Intake Total 480 / 480
Balance 480 / 480
Review of Systems
-
Constitutional: Denies Fever
Respiratory: Denies Cough
Cardiac: Denies Chest Pain
Abdomen/GI: Denies Nausea or Vomiting
Neuro: Denies Dizzy
Physical Exam
-
General: Comfortable
HEENT: Moist Mucous Membranes
Respiratory: Crackles (few basal crackles in left base ) and Non Labored Respirations; Negative Wheezes or Accessory Resp Muscle Use
Cardiac: Regular Rhythm and S1/S2
GI: Soft
Neuro: AO x 3
Psych: Calm; Negative Confused
Data Reviewed
-
Labs: Labs Reviewed by me
--- NOTE | 2023-07-28 09:46 | PN.CDI ---
CDI
- -
CDI:
Physician Documentation Request
Admit Date: 07/16/23 16:13
Dear Doctor Reji,
07/25 Pulmonary notes states 'Acute respiratory failure with hypoxemia on supplemental oxygen....Asked to see patient because of worsening chest x-ray....Desaturates to 84% when on room air during my examination'
07/26 cardio note also states 'Hypoxic respiratory failure - requiring oxygen and not able to tolerate room air'
Hospitalist noted states 'Acute shortness of breath acute hypoxic respiratory insufficiency'
Per documented vital signs pt has fluctuated between 2-6 Liters during hospitalization day and night time.
Please clarify which of the following accurately represents the patient's respiratory status:
Acute respiratory failure with hypoxemia
Hypoxia
Other
Additional information for Respiratory Failure:
Recognized criteria for Respiratory Failure (Source: [facility] Hospitalist Mar 2013)
ABGs: (1 or more) Symptoms
1. pO2 <60 or RA SPO2 <91% on RA 1. Tachypnea, SOB, dyspnea
2. pCO2 50 and pH <7.35 2. Use of accessory muscles
3. pO2 decrease of pCO2 increase by 3. Pallor or cyanosis
10 mmHg from baseline if known 4. Anxiety or restlessness
5. Unable to speak in full sentences
Supplemental O2 of > 40% (5LPM) Intubation is not required
Use of terms such as suspected, likely, concern for, or probable (associated with a specific diagnosis that is being evaluated, monitored, or treated as if it exists) are acceptable and can be coded in the inpatient setting, when documented at the
time of discharge.
Thank you,
Janet Early RN, BSN
CDI Specialist
tiger text
Please use your independent medical judgment in providing your response.
--- NOTE | 2023-07-28 10:47 | W.PN.CD ---
Today's Communication / Plan
-
continue current regimen
Impression / Plan
-
Impression: 68F with palpitations and sob with recent discharge for weakness, af and hypokalemia on 07/09/23.
PMH: Persistent A fib on Eliquis, s/p PVI 09/22/22, repeat PVI and AT/Afl ablation 02/2023, with recurrence and now on Tikosyn, then MDT dual chamber PPM, chronic HFpEF, moderate mitral stenosis, mild , 1st degree AVB, IVCD, HTN, abnormal EKG, CVA
in 1988, left breast cancer 2010 s/p chemo, surgery, and radiation, chronic PIERCE, morbid obesity, and lymphedema.
Plan:
hypoxic Respiratory Failure
- requiring oxygen and not able to tolerate room air
- Pulm is following: plan is for AM ABG. RAMY is suspected.
- LVEF is improved with atrial paced rhythm compared to AF/SVT
Atrial arrhythmias:
- Now in atrial paced rhythm mostly
- Has gone in and out of AT.
-s/p reprogramming of pacemaker. changed to AAIR�DDDR from 60-110bpm this admission
-Increased dose of Tikosyn to 500 mcg twice daily on 07/17/23 - loading completed.
-With changes in pacemaker and programming, now patient is A paced, V sensed with acceptable QTc.
-tolerating higher dose of dofetilide
-Decreased BB with continued hypotension. Metoprolol now at to 37.5 mg BID
-Added digoxin 250 mcg QD for rate control
-On apixaban 5mg BID
-EP records reviewed: Given patient's extensive scarring of the right and left atria, we did discuss the possibility of addition of a CS lead and AVJ ablation. If the current regimen does not improve patient's rhythm then next step would be to go
ahead and upgrade to BiV and proceed with AVJ ablation
Chronic HFrEF: weight lowest documented in >1 year per [facility]
- ECHO on 07/20/23 showed LVEF of 30% - severe systolic dysfunction - global hypokinesis
- Normal cors in 2021. Lexiscan will be deferred to outpatient setting given relative hypotension/frailty. We think this is due to tachycardia and CAD less likely.
- ECHO with contrast 07/26/23 - now with atrial paced rhythm - the LVEF appears to be 50%
- GDMT
- On Metoprolol, Aldactone and lasix, and we are limited due to hypotension.
- ACEi not tolerated due to hypotension.
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 \\
Hypotension
- midodrine - increased from 5 tid to 10 BID
PPM
Moderate MS
- stable on echo
Remote Stroke
Prior Breast cancer
Obesity
Lymphedema
Subjective:
SOB better, but she remains on O2.
Physical Exam
Vital Signs/Labs
Vital Signs
Temp Pulse Resp BP Pulse Ox
98.4 F 86 14 93/48 83
07/28/23 07:43 07/28/23 08:00 07/25/23 14:00 07/28/23 08:00 07/28/23 08:00
07/27/23 07/28/23 07/29/23
06:59 06:59 06:59
Actual Weight 125 kg 124.9 kg
07/28/23 03:40
07/28/23 03:40
Magnesium 1.9 mg/dl (1.6-2.3) 07/24/23 05:14
TSH 2.66 uIU/ml (0.47-4.68) 07/16/23 13:10
07/16/23 07/26/23 07/26/23
14:17 06:16 17:21
[id number] Pept 8940 Cancelled [id number]
Physical Exam
Constitutional: Comfortable
EENT: Moist mucous membranes
Cardiovascular: Rhythm & rate is regular, Pedal edema is absent, JVD present and Systolic murmur present
Respiratory: Respiratory effort normal and Lungs clear to auscul.
GI: Soft and Distention absent
Neuro/Psych: AO x 3
Data Reviewed
-
Date of Service: July 28, 2023
EKG: Other (Tele: A paced, occasional atrial tachycardia)
Labs: Labs Reviewed by me
--- NOTE | 2023-07-28 11:19 | CM ---
Addendum entered by Omar Del Real 07/28/23 11:34:
Oxygen concentrator with 5 portable O2 tanks have been delivered to pt's home on Wednesday07/26/23.
Original Note:
CM following re: discharge planning.
Reviewed pt's chart, met with pt.
Per chart review, discharge on hold from pulmonary standpoint. per body coverer, patient cannot tolerate BiPAP, Cannot tolerate full face mask
but she is willing to try nasal mask and this can be done on an outpatient level.
CM spoke to [facility] liaison Nima and he is aware that pt still at and pt's disposition issue related to confirming adequate oxygen therapy at home, able to go to 5 L at rest. Per ximena, if pt needs Trilogy at home then it needs to be
communicated to [facility] respiratory therapist regarding settings: RT Ansari [phone]. Per xmiena Herring, updated note regarding pt's pulse OX needs to be faxed to [facility] at discharge.
Per , repeat ABG in am tomorrow. CM will follow up with body coverer regarding adequate oxygen therapy at home.
D/C plan: home with [facility], necessary DME and friends support.
CM will follow with discharge plan updates as hospitalization progresses
[2023-07-28] MEDS: LANOXIN 250 MCG PO (12:42)
[2023-07-28] MEDS: CRESTOR 20 MG PO (19:18)
[2023-07-28] MEDS: TYLENOL 325 MG PO (19:18)
[2023-07-28] MEDS: DESENEX/MITRAZOL/ZEASORB TOPICAL (19:20)
--- NOTE | 2023-07-28 23:08 | PTCARENOTE ---
Patient transferred down to IVU on 5 liters NC. Belongings sent with patient.
--- NOTE | 2023-07-28 23:55 | PTCARENOTE ---
Rec'd pt. from IMU into room 2251 (pt. tele overflow) AAOx3, VSS, NSR with A & V pacing, rate 60's-70's. Pt. states she is non-ambulatory, heavy puller machine to bed with assist x 3. Some PIERCE assessed, crackles auscultated left base, pulse ox on 5L
O2 94%, no complaints of pain. Pt. oriented to room and plan of care discussed, pt. aware O2 will be left at 5L per order and ABG will be completed in AM. Pt. currently watching television.
[2023-07-29 03:19] VITALS: BP 107/59
[2023-07-29 04:10] LABS: % Basophils 1.4 % (0-2); % Eosinophils 4.7 % (0-6); % Immature Granulocytes 0.4 % (0-0.5); % Lymphocytes 12.2 % (20.5-51.1); % Neutrophils 74.3 % (42.2-75.2); Absolute Basophils 0.1 10^3/uL (0-0.2); Absolute Eosinophils 0.4 10^3/uL (0-0.7); Absolute Lymphocytes 1.2 10^3/uL (1.2-3.4); Absolute Monocytes 0.7 10^3/uL (0.1-0.6); Hematocrit 39.2 % (37.0-47.0); Hemoglobin 12.3 g/dL (12.0-16.0); Mean Corp Hgb Conc. 31.4 g/dL (33.0-37.0); Mean Corpuscular Hgb 30.8 pg (27.0-31.0); Mean Platelet Volume 9.7 fL (7.4-10.4); Nucleated Red Blood Cells % 0 %; Platelet Count 330 10^3/uL (130-400); Red Cell Dist. Width 15.7 % (11.5-14.5); White Blood Cell Count 9.4 10^3/uL (4.8-10.8)
[2023-07-29 04:28] LABS: ALT (SGPT) 17 U/L (0-35); AST (SGOT) 26 U/L (14-36); Alkaline Phosphatase 105 U/L (38-126); Blood Urea Nitrogen 18 mg/dl (7-17); Calcium 8.7 mg/dl (8.4-10.2); Carbon Dioxide 32 mmol/L (22-30); Chloride 97 mmol/L (98-107); Estimated Creatinine Clearance 119 ml/min; Glucose 98 mg/dl (70-99); Potassium 3.9 mmol/L (3.5-5.1); Sodium 133 mmol/L (135-145); Total Bilirubin 3.2 mg/dl (0.2-1.3); Total Protein 7.1 g/dl (6.3-8.2); eGFR > 60.00
[2023-07-29 05:02] LABS: B.E. 11.5 mmol/L; HCO3 35.9 mmol/L (21-28); O2 Saturation % 96.5 % (94-98); PCO2 45 mmHg (32-35); PO2 75 mmHg (83-108); pH 7.51 (7.35-7.45)
[2023-07-29 05:06] LABS: O2 Therapy 5L
[2023-07-29 05:15] VITALS: BMI 44.2
[2023-07-29 07:11] VITALS: BP 105/65
--- NOTE | 2023-07-29 08:22 | W.PN.PUL3 ---
Today's Communication / Plan
-
Continue 5 L
Will require outpatient follow-up in the sleep clinic
This was reviewed at length with patient
Head of bed elevated as able
Had extensive discussion with patient regarding risks and ramifications of untreated apnea
She understands importance of follow-up
Unfortunate, remains high risk for readmission
Assessment
-
Assessment: 68-year-old female with a past medical history of mild intermittent asthma, severe RAMY, former tobacco use disorder, mitral valve stenosis, history of pulmonary nodules and history of CVA who presents with shortness of breath and
palpitations. Week prior to arrival she was fatigued. The night prior to come to the ER she felt severe shortness of breath and could not lay flat because of this. She also felt her heart galloping on her chest with palpitations. She noted chest
pressure but no pain. In the ER she was found to be in rapid A-fib and IV lopressor + IV cardizem were given. CTA chest showed volume overload with several subpleural nodular opacities and a opacity in the posterior right upper lobe concerning for
suspected pneumonia. Lasix was given to the patient. She was admitted to the hospitalist service. Pulmonary now consulted in relationship to this abnormal CTA chest done on 07/16/2023.
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
gastric bypass, depression, anxiety, hypertension, ADD, history of breast cancer s/p lumpectomy/XRT with chemotherapy, GERD
Impression:
#Abnormal CTA chest with subpleural parenchymal nodular opacities bilaterally most prominent in the posterior right lung apex, with mild cardiomegaly and diffuse coarsening of interstitial markings consistent with pulmonary edema - right posterior
lung apex opacity and subpleural opacities are new compared to prior CTA chest from 06/2022
#Persistent A-fib on Eliquis
#Acute respiratory failure with hypoxemia on supplemental oxygen (currently on 4 L/min)
#Acute on chronic HFrEF (LVEF: 30-35% via TTE done 07/20/2023)
#RV dysfunction
#Valvular heart disease with mild-moderate TR
#Hyponatremia (now resolved) - baseline Na 132 - 138
#Obesity (BMI: 45.3)
#History of severe RAMY (respiratory event index: 65.7, O2-desaturation down to 67% via portable sleep study on 03/2020); suspected obesity hypoventilation syndrome
#Nocturnal hypoxia - likely due to RAMY that is not being Tx
Plan:
Patient appears to be comfortable from respiratory standpoint
ABG reviewed, 7.5 on 5 L, saturation 96%
Mild posterior crackles noted, no change
No further sig hypotension
Covid negative
BNP trending down
White count normal
Moving forward
Differential is broad for progressive bilateral interstitial infiltrates
Infectious pneumonitis, aspiration, pulmonary edema, noncardiogenic pulm edema, or lagging of chest x-ray findings.
Last chest x-ray 07/05/2023.
CT chest from 07/16/2023
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
Encouragingly, pt is without sxs
Has been maintained on 5 L over the last 48 hours
PT notes suggest adequate saturation of 91%
PT eval, OOBTC ongoing. Patient states she will not be going to rehabilitation
Nocturnal oxygenation will likely not be normal until she pursues noninvasive ventilation
She plans to follow-up as an outpatient, would consider nasal mask
Plan for outpatient CT chest in the next 6 weeks for nodular infiltrates
Unfortunately, patient cannot tolerate BiPAP. Cannot tolerate full facemask
She is willing to try nasal mask, this can be done as an outpatient
Patient aware of risks and ramifications of not using BiPAP
Prior pulmonary follow-up information left in chart with sleep clinic
Disposition efforts
Reviewed with primary service and patient
Data:
CTA Chest 07-16-2023:
1.). There is no pulmonary embolism
2). There is mild cardiomegaly with diffuse coarsening of the interstitial markings throughout both lungs most consistent with pulmonary edema
3). There are patchy areas of subpleural parenchymal density in both lungs most prominent in the posterior right lung apex worrisome for superimposed pneumonia
4). There is stable mediastinal and bilateral hilar lymphadenopathy
5). Atherosclerosis
6). Low density masses in both lobes of the thyroid which, if clinically indicated, could be best further evaluated and followed with thyroid ultrasound
TTE 07-20-2023:
Technically difficult study and patient is in AF RVR.
�Normal LV size with moderately reduced systolic function.
�LV ejection fraction is 30 to 35% by visual estimation.
�Global diffuse hypokinesis.
�Enlarged right ventricular size. Reduced right ventricular systolic function.
�Moderate mitral stenosis.
�Mild aortic stenosis.
�Mild to moderate tricuspid regurgitation.
�Estimated pulmonary artery pressure of 45 mmHg assuming a right atrial pressure
�of 3 mmHg.
�Compared to prior from April 16, 2022, estimated ejection fraction is now
�moderately reduced 30 to 35% from 50 to 55%.� This could be secondary to atrial
�fibrillation with RVR.� Tricuspid regurgitation is now mild to moderate with
�mildly elevated estimated PASP as above.
Outpatient [facility] Data:
SLEEP STUDIES:
����Portable sleep study : Respiratory event index of 65.7 events per hour. Oxygen desaturation down to 67%. Severe obstructive sleep apnea.
CARDIAC STUDIES:
������ ECHO 01/09/21: LV EF 55-60%, normal RV. Severe dilated LA, moderate MS, mild MR
��������ECHO 03/03/18: EF normal, moderate dilated LA, mild to mod MS.�
RADIOGRAPHIC STUDIES:
������ CT CHEST 02/02/22: numerous scattered pulmonary nodules-- Lingula: 3 mm; RUL: 5 mm, 6 mm; OG: 5mm; RLL: 8mm, 3mm, 3mm; PNA in LLs L>R, scattered opacities throughout lungs also noted, likely infectious. Small left parapneumonic effusion
��������CXR 01/19/22: LLL consolidation/effusion.�
PFT:
������ Elie 02/16/22: FEV1 1.96L 78%, FVC 2.46L 74%, ratio 0.79. Post FEV1 2.16L 86% no BD response (suggests restriction, normal post).�
Subjective Data
-
Date of Service:
Date of Service: July 29, 2023
Chief Complaint: Pulmonary Follow Up
Subjective:
Patient examined earlier this morning. Sleeping comfortably. Had difficult night as was transferred to IVU per nursing. Did not sleep at all. Currently on 5 L, 94%.
Visited again later in the morning, without complaints
Objective Data
Data Reviewed
Vital Signs / I&O / Oxygen:
Vital Signs
Temp Pulse Resp BP Pulse Ox
98.2 F 74 20 105/65 94
07/29/23 07:06 07/29/23 07:11 07/29/23 07:06 07/29/23 07:11 07/29/23 07:11
Intake and Output
07/28/23 07/29/23 07/30/23
06:59 06:59 06:59
Intake Total 240 / 240
Balance 240 / 240
SaO2 94
Nasal Cannula flow liters per 5
minute
Physical Exam
General: Comfortable
HEENT: Normocephalic and Other (Large neck)
Cardiovascular: S1-S2, Regular Rhythm and Peripheral Edema (Negative)
Respiratory: Wheeze (n), Crackles (mild basilar crackles), Rhonchi (n) and Non-Labored Respirations
GI: Soft, Non Distended (Morbidly obese) and Non Tender
Neurology: Awake, Alert and No Motor Deficits
Skin: Warm, Dry, Rash (n) and Bruising
Labs/Micro/Reports
Lab Data
07/29/23 03:52
07/29/23 03:52
Laboratory Results
07/29/23
04:55
pH 7.51 H
pCO2 45 H
pO2 75 L
HCO3 35.9 H
O2 Delivery Level 5l
[2023-07-29] MEDS: SINGULAIR 10 MG PO (09:07)
[2023-07-29] MEDS: LASIX 80 MG PO (09:07)
[2023-07-29] MEDS: TIKOSYN 500 MCG PO (09:07)
[2023-07-29] MEDS: ELIQUIS 5 MG PO (09:07)
[2023-07-29] MEDS: KCL 40 MEQ PO (09:07)
[2023-07-29] MEDS: TOPROL XL 37.5 MG PO (09:08)
[2023-07-29] MEDS: MIRALAX PO (09:08)
[2023-07-29] MEDS: PROTONIX 40 MG PO (09:08)
[2023-07-29] MEDS: ProAmatine 10 MG PO (09:08)
[2023-07-29] MEDS: DESENEX/MITRAZOL/ZEASORB TOPICAL (09:09)
[2023-07-29] MEDS: COLACE PO (09:09)
[2023-07-29] MEDS: ALDACTONE 25 MG PO (09:09)
--- NOTE | 2023-07-29 09:53 | W.PN.HOSP.TC ---
Addendum entered and electronically signed by Saul Mendoza MD 07/31/23 18:08:
Correction
Acute hypoxic respiratory failure rather than insufficiency present during this hospitalization
Original Note:
Today's Communication/Plan
-
DC
Assessment / Plan
Assessment / Plan
Assessment/Plan
Acute shortness of breath acute hypoxic respiratory insufficiency-suspect secondary to pulmonary edema noted on the CT chest.�Patient was also in rapid atrial fibrillation possibly precipitating it.� Hemodynamically stable.�
Improved symptom of shortness of breath.
Improved weight. Improved BNP.
Continue with Lasix diuresis as blood pressure permits -wt down
Hypotension has been an issue so will need to closely monitor BP while adjusting her medications - and continue Midodrine.
Increased FiO2 noted.
Repeat chest x-ray 07/25 shows increased interstitial prominence. Appreciate pulmonary input. Suspect the chest x-ray may be lagging behind clinical improvement. Patient requiring still higher FiO2, need to down titrate prior to considering
discharge. Currently on 5 L during the daytime -stable . Continue to wean FiO2.Home o2 arranged.
Nocturnal Hypoxemia
Severe untreated RAMY
-Patient's oxygen desaturates during sleep severely
-BiPAP trial as per pulmonary -- but patient cannot tolerate it due to claustrophobia
- Repeat ABG noted . Only mild elevation in CO2 and she is not acidotic.Infact alkalotic.
- patient's outpatient Wixela 250mcg BID (used outpatient for mild intermittent asthma) if patient feels worsening SOB
- Home O2 arranged - she would need 5l at rest on DC
Rapid atrial fibrillation/Atrial Tachycardia/Atrial Flutter-patient with recurrent atrial arrhythmias with prior ablation.� She is back on Tikosyn and beta-willie. Pacemaker reprogrammed, digoxin added, dose of Tikosyn increased.�. Continue
Eliquis. Cardiology following. Echo ordered, results noted: LVEF of 30% - severe systolic dysfunction - global hypokinesis. Repeat echo showed normalization of EF
Chronic HFrEF
-ECHO on 07/20/23 showed LVEF of 30% - severe systolic dysfunction - global hypokinesis (was 60% EF in April 2022)
-Contine beta-willie, aldactone and Lasix
-TK-I not tolerated
-Stress test outpatient as per cardiology
-Pricing for the Hemaxiga vs Sergioance - Not covered - work as outpatient for coverage.
Chronic Hypotension - continue Midodrine
Pleural bilateral lung parenchymal opacities most prominent in the right apex-radiological concern of pneumonia noted.�Repeat chest imaging (CT chest without contrast) in 6-8 weeks to assess stability of nodular opacities. Patient is afebrile.�
White count is normal.� She has a cough and clear if related to pulmonary edema.� Normal procalcitonin.� Clinically nontoxic.� Pneumonia suspect probably fluid related. Hold on antibiotics.� No active bronchospasm.�
Hypertension-continue the home medication with parameters. Blood pressure on the lower side with hypotensive readings at times.
Hyperlipidemia-continue with statins
Mild [id number] lites. Continue to follow.
Remote Stroke
Prior Breast cancer
Obesity
Lymphedema
Full code
DC home today after seen by pulmonary
More than 30 minutes spent in discharge including
Final examination of the patient
Summarizing hospital stay
Instructions for continuing care to all relevant caregivers
Preparation of discharge records, prescriptions, and referral forms
Total time spent (in minutes):
35
Anticipated Discharge: Today
Subjective/Interval History
-
Date of Service: July 29, 2023
Slept fine last night.
Denies any shortness of breath at rest. She is on 5 L of oxygen , and comfortable.
No chest pain or palpitation
Tolerating diet.
Objective Data
-
Labs:
Laboratory Results
07/29/23 07/29/23
03:52 04:55
WBC 9.4
Hgb 12.3
Hct 39.2
Plt Count 330
HCO3 35.9 H
Sodium 133 L
Potassium 3.9
Chloride 97 L
Carbon Dioxide 32 H
BUN 18 H
Creatinine 0.6
Glucose 98
Calcium 8.7
Total Bilirubin 3.2 H
AST 26
ALT 17
Alkaline Phosphatase 105
Vital Signs:
Vital Signs
Temp Pulse Resp BP Pulse Ox
98.2 F 70 20 105/65 94
07/29/23 07:06 07/29/23 09:09 07/29/23 07:06 07/29/23 09:09 07/29/23 07:11
I&O
07/28/23 07/29/23 07/30/23
06:59 06:59 06:59
Intake Total 240 / 240
Balance 240 / 240
Review of Systems
-
Constitutional: Denies Fever
EENT: Denies Sore Throat
Respiratory: Denies Cough
Abdomen/GI: Denies Abdominal Pain, Nausea or Vomiting
Neuro: Denies Dizzy
Physical Exam
-
General: No Apparent Distress
Respiratory: Crackles (few bibasal crackles); Negative Wheezes
Cardiac: Regular Rhythm and S1/S2
GI: Soft
Neuro: AO x 3
Data Reviewed
-
Labs: Labs Reviewed by me
--- NOTE | 2023-07-29 10:09 | W.DS.TRANS ---
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
-
Discharge Instructions:
Discharge Diagnosis/Procedures Acute hypoxic hypercapnic respiratory failure
Paroxysmal atrial fibrillation with RVR s/p
increased Tikosyn dose-currently in sinus rhythm
Chronic heart failure with improved EF
Severe obstructive sleep apnea
Chronic hypotension-initiated midodrine
Diet 2 Gram Sodium
Activity As tolerated
Driving Restrictions No driving
Bathing Restrictions None
Specialty Instructions Weigh Daily
Instructions: *[facility] Heart Failure Instructions
Stand-Alone Forms:
Changes to Home Medications: Yes
Discharge Medications:
DC Medications w/original date entered in [employer]
montelukast 10 mg tablet 10 mg PO QPM Lung/breathing issues 06/23/22
apixaban 5 mg tablet (Eliquis) 5 mg PO BID #60 tabs 07/01/22
furosemide 80 mg tablet (Lasix) 80 mg PO DAILY@1500 Fluid retention/Swelling 09/23/22
polyvinyl alcohol 1.4 % eye drops 1 drp BOTH EYES BIDPRN PRN dryness 02/17/23
rosuvastatin 20 mg tablet 20 mg PO HS High Cholesterol 02/17/23
fluticasone 250 mcg-salmeterol 50 mcg/dose blistr powdr for inhalation (Wixela Inhub) 2 inh inhalation R BIDPRN PRN SOB 02/22/23
spironolactone 25 mg tablet (Aldactone) 25 mg PO DAILY Fluid Retention/Swelling 02/22/23
therapeutic multivitamin 1 tab PO DAILY Supplement ##0 04/16/23
acetaminophen 325 mg tablet (Tylenol) 650 mg PO BIDPRN PRN mild pain 07/16/23
omeprazole 20 mg capsule,delayed release 20 mg PO DAILY PRN gerd 07/16/23
digoxin 250 mcg (0.25 mg) tablet 250 mcg PO NOON #30 tabs 07/29/23
docusate sodium 100 mg capsule 100 mg PO DAILY #30 caps 07/29/23
dofetilide 500 mcg capsule 500 mcg PO Q12H #60 caps 07/29/23
metoprolol succinate 25 mg tablet,extended release 24 hr 37.5 mg PO DAILY #30 tabs 07/29/23
midodrine 5 mg tablet 10 mg PO BID #60 tabs 07/29/23
polyethylene glycol 3350 17 gram oral powder packet (HealthyLax) 17 g PO DAILY #30 ea 07/29/23
potassium chloride 20 mEq tablet,extended release 40 meq PO DAILY #0 tabs 07/29/23
Home Medication Changes
New medication-Colace, MiraLAX, midodrine, digoxin
Change in medication-metoprolol dose decreased to 37.5 mg from 50, Tikosyn increased from 250 mcg to 100 mcg
Pending Results: No
--- NOTE | 2023-07-29 11:30 | PTCARENOTE ---
Addendum entered by Marilu Marshall RN 07/29/23 16:20:
Placed patient on 4L NC, SpO2 94-95%. Increased to 5L NC, and SpO2 remained 94-95%.
Original Note:
Removed 5L nasal cannula to assess patient's SpO2 on RA. Shortly after removing nasal cannula, patient's SpO2 dropped to 87%. Reapplied 5L NC.
[2023-07-29 11:35] VITALS: BP 104/68
--- NOTE | 2023-07-29 11:42 | CM ---
Chart reviewed. Patient is independent of ADLS, lives alone [address] [address], 0 [address], ambulates with a rolling walker and also has a wheelchair. I confirmed with Nima at [facility] that O2 was delivered. ABG was done this am, I confirmed with "Alverto"Srinivasan that the patient does not need Trilogy. The patient's script , it's > [address] Mattson is not in house. Waiting on Dr Mendoza, once script is done I will fax it to [phone]. Plan is for the [facility]
and [facility]. 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
[2023-07-29] MEDS: LANOXIN 250 MCG PO (12:44)
[2023-07-29 12:46] VITALS: BP 98/54
[2023-07-29 15:30] VITALS: BP 105/70
--- NOTE | 2023-07-29 16:10 | PTCARENOTE ---
Patient ready for discharge, being discharged via EMS Ambulance to Home.
Removed IV. Went over discharge instructions.
--- NOTE | 2023-07-31 18:14 | W.DCSUMMARY ---
Discharge Summary
Discharge Data
Date of Admission: 07/16/23
Date of Discharge: 07/29/23
-
Pending Results: No
Hospital Course
Primary diagnosis:
Acute hypoxic respiratory failure
Acute pulmonary edema
Paroxysmal atrial fibrillation
Nocturnal hypoxemia secondary to untreated obstructive sleep apnea
Hypotension needing midodrine
Nodular pulmonary opacities
Secondary diagnosis:
Chronic heart failure with reduced EF
Essential hypertension
History of stroke
Hospital course:
Patient with history of atrial fibrillation presented with the rapid atrial fibrillation and RVR. She has recurrent atrial arrhythmias and had prior ablations. She was seen by cardiology-pacemaker was reprogrammed, digoxin was added and dose of
Tikosyn was increased with rhythm control. She is chronically on Eliquis. She had an echocardiogram which showed EF of 30% which is severe systolic dysfunction compared to baseline but with normalization of the A-fib rhythm the repeat echo showed
normalization of EF.
She acute hypoxic pulmonary failure secondary pulmonary edema which was improving but she still remained with residual hypoxia. Follow-up chest x-ray showed still persistent pulmonary edema but pulmonary felt it was lagging behind clinical
improvement. She is also severe nocturnal hypoxemia from untreated obstructive sleep apnea. She could not tolerate facemask. She had a.m. ABG which did not show significant hypercapnia so she was no qualified to get a nasal CPAP without formal
sleep study. She would follow-up with pulmonary.
Hypoxia evaluation she had chest CT which showed pleural bilateral lung parenchymal nodular opacities and pulmonary recommended repeat chest CT without contrast in 6 to 8 weeks time to assess the stability of nodular opacities.
At time of discharge she was still requiring oxygen at 5 L of oxygen without any symptoms. Was seen by pulmonary and cleared for discharge. Home O2 was arranged.
Consultants on board:
Pulmonary-Dr. Mattson
Cardiology-Dr. Haas
Discharge Plan
-
Patient Disposition: Home with Home Care
Discharge Diagnosis/Procedures: Acute hypoxic hypercapnic respiratory failure
Paroxysmal atrial fibrillation with RVR s/p increased Tikosyn dose-currently in sinus rhythm
Chronic heart failure with improved EF
Severe obstructive sleep apnea
Chronic hypotension-initiated midodrine
Diet: 2 Gram Sodium
Activity: As tolerated
Driving Restrictions: No driving
Bathing Restrictions: None
Specialty Instructions: Weigh Daily- Call MD for wt gain/loss 3 lbs overnight/5 lbs in 1 week
Instructions: *[facility] Heart Failure Instructions
Referrals:
[facility] [Other]
[facility] [Outside]
Qiana Rodriguez MD [Family Provider] - in less than 1 week
Katherine Campo DO [Active] - in three to four weeks (with 6MWT on day of office visit.)
Angela Haas MD [Active] - in one week
Prescriptions:
New
polyethylene glycol 3350 [HealthyLax] 17 gram Powder In Packet
17 g PO DAILY Qty: 30 0RF
Rx Instructions:
new medication
midodrine 5 mg Tablet
10 mg PO BID Qty: 60 0RF
Rx Instructions:
new medication
digoxin 250 mcg (0.25 mg) Tablet
250 mcg PO NOON Qty: 30 0RF
Rx Instructions:
new medication
docusate sodium 100 mg Capsule
100 mg PO DAILY Qty: 30 0RF
Rx Instructions:
new medication
metoprolol succinate 25 mg Tablet Extended Release 24 Hr
37.5 mg PO DAILY Qty: 30 0RF
Rx Instructions:
dose decreased
dofetilide 500 mcg Capsule
500 mcg PO Q12H Qty: 60 0RF
Rx Instructions:
dose increased
dofetilide [Tikosyn] 500 mcg capsule
500 mcg PO Q12H Qty: 6 0RF
Continued
montelukast 10 mg Tablet
10 mg PO QPM
Eliquis 5 mg Tablet
5 mg PO BID Qty: 60 0RF
furosemide [Lasix] 80 mg tablet
80 mg PO DAILY@1500
polyvinyl alcohol 1.4 % Drops
1 drp BOTH EYES BIDPRN PRN (Reason: dryness)
rosuvastatin 20 mg Tablet
20 mg PO HS
fluticasone propion-salmeterol [Wixela Inhub] 250-50 mcg/dose Blister With Device
2 inh INHALATION R BIDPRN PRN (Reason: SOB)
spironolactone [Aldactone] 25 mg Tablet
25 mg PO DAILY
therapeutic multivitamin Tablet
1 tab PO DAILY Qty: 0
acetaminophen [Tylenol] 325 mg Tablet
650 mg PO BIDPRN PRN (Reason: mild pain)
omeprazole 20 mg Capsule,Delayed Release(Dr/Ec)
20 mg PO DAILY PRN (Reason: gerd)
Changed
potassium chloride 20 mEq Tablet Extended Release
40 meq PO DAILY Qty: 0 0RF
Discontinued
metoprolol succinate [Toprol XL] 50 mg tablet extended release 24 hr
50 mg PO BID
omeprazole 20 mg Capsule,Delayed Release(Dr/Ec)
20 mg PO DAILY
dofetilide 250 mcg Capsule
250 mcg PO Q12H Qty: 180 3RF
Senokot 8.7 mg Tablet,Chewable
8.7 mg PO DAILY
Discharge Orders:
Discharge Patient (As Directed); Ordered 07/29/23
Ordered By: Saul Mendoza
Care Plan Goals
Care Plan Goals:
Problem: Readiness for enhanced knowledge related to diagnosis and treatment plan
Goal: Understand your diagnosis and treatment plan needs, including medications if applicable.
Instructions: Know your diagnosis, underlying causes and treatment plan options, including medications if applicable. Consult with your health care team to learn about your diagnosis and treatment plan, including medications if applicable.
Discharge Date and Time
Discharge Date/Time: 07/29/23 16:20
== END 2023-07-29 16:20 | disposition home health service (06) | DRG 308 ==
LOC: IVU 16:13
PROVIDERS: Hospitalist; Internal Medicine Critical Care Medicine; Nurse Practitioner Family; Physician Assistant Medical; ADMITTING PHYSICIAN Internal Medicine; CONSULT PHYSICIAN Internal Medicine Cardiovascular Disease; CONSULT PHYSICIAN Internal Medicine Critical Care Medicine; EMERGENCY PHYSICIAN Emergency Medicine; FAMILY PHYSICIAN Family Medicine
DX: I48.19 Other persistent atrial fibrillation (principal); I50.43 Acute on chronic combined systolic (congestive) and diastolic (congestive) heart failure; J96.01 Acute respiratory failure with hypoxia; E87.1 Hypo-osmolality and hyponatremia; Z68.41 Body mass index [BMI] 40.0-44.9, adult; Z68.42 Body mass index [BMI] 45.0-49.9, adult; I47.19 Other supraventricular tachycardia; Z79.01 Long term (current) use of anticoagulants; I11.0 Hypertensive heart disease with heart failure; E78.00 Pure hypercholesterolemia, unspecified; E87.5 Hyperkalemia; Z87.891 Personal history of nicotine dependence; E87.6 Hypokalemia; E66.01 Morbid (severe) obesity due to excess calories; Z11.52 Encounter for screening for COVID-19
CPT/HCPCS: 93308; 36600; 71046; 71275; 78451; 80048; 80053; 82248; 82805; 83735; 83880; 84145; 84443; 84484; 85025; 87811; 93005; 93306; 94640; 94660; 96374; 96375; 96376; 97162; 97166; 97530; 99285; A9500; J1160; J2785; Q9950; Q9957; Q9967

== ENCOUNTER 2023-08-10 15:54 | Inpatient (IN) | payer MEDICARE, OTHER, SELFPAY ==
[2023-08-02 16:38] VITALS: BMI 41.2
[2023-08-02 16:45] VITALS: BP 122/64
--- NOTE | 2023-08-02 16:49 | ED.GENMED ---
History of Present Illness
General
Chief Complaint: Malaise
Source: patient
Exam Limitations: none
Time Seen by Provider: 08/02/23 16:37
Travel History
Have you had any contact with someone who has COVID-19?: No
Do you have any symptoms of coronavirus? Fever > 100 degrees, chills, cough, shortness of breath, sore throat, loss of taste or smell, muscle aches, or headache?: No
History of Present Illness
History of Present Illness:
68-year-old female presents with progressively worsening fatigue over the past 3 days. She has been bedbound. Has been able to get out of her bed. She has been urinating on herself. No significant chest pain. She denies any measurable fever
sweats or chills. No nausea or vomiting. She has a history of CHF atrial fibrillation has a pacemaker.
Past History
Past History
ED Past Medical History: Arrthythmia, Asthma, Cancer (breast), CHF, CVA (TIA), HTN, Other (RAMY) and Other (mvp)
ED Past Surgical History: Cardiac, Cholecystectomy, , Tonsilectomy and Other (gall bladder, lymph nodes left breast)
Social History
Tobacco: Non-smoker
Alcohol: None
Drug: None
Personal: Single
Living: with family
Employment: Not employed
Phy Exam
Physical Exam
Physical Exam:
General: Obese female no acute respiratory distress
HEENT: Normocephalic atraumatic
Heart: Regular rate and rhythm systolic murmur noted
Abdomen is soft nontender nondistended no guarding rebound normal bowel sounds
Extremities: No cyanosis or edema skin: Warm no rash
Course
Orders/Labs/Results
Orders:
Orders
08/02/23 16:44
Interrogate Pacemaker- Treatment ONCE
CR Chest Portable - 1 View Urgent
Comment:
Reason For Exam: weakness
Reason Study Needs to be Portable: Unable to Transport
08/02/23 17:29
COVID-19 Antigen Urgent
Source: Nasal Swab
Influenza A+B Rapid Molecular Urgent
ALISTAIR Source: Nasal Swab
Specimen Description:
08/02/23 18:10
Complete Blood Count/With Diff Urgent
Comprehensive Metabolic Panel Urgent
NT-proBNP Urgent
08/02/23 18:56
Urinalysis Reflex To Culture Urgent
Date Specimen was Collected: 08/02/23
Time Specimen was Collected: 18:46
Urine Microscopic Reflex Cult Urgent
Urine Culture Urgent
ALISTAIR Source: U
Specimen Description:
Date Specimen was Collected: 08/02/23
Time Specimen was Collected: 18:46
08/02/23 19:56
CefTRIAXone [Rocephin] 1,000 mg IV NOW STA
Abnormal Lab Results
08/02/23 08/02/23
18:10 18:56
RBC 3.97 L 10^6/uL
(4.20-5.40)
MCH 31.2 H pg
(27.0-31.0)
MCHC 32.5 L g/dL
(33.0-37.0)
RDW 16.4 H %
(11.5-14.5)
Abs Immat Gran (auto) 0.1 H 10^3/uL
(0-0.05)
Absolute Lymphs (auto) 0.7 L 10^3/uL
(1.2-3.4)
Absolute Monos (auto) 0.7 H 10^3/uL
(0.1-0.6)
Immature Gran % 0.7 H %
(0-0.5)
Neutrophils % 77.1 H %
(42.2-75.2)
Lymphocytes % 9.0 L %
(20.5-51.1)
Monocytes % 9.6 H %
(1.7-9.3)
Chloride 97 L mmol/L
(98-107)
Carbon Dioxide 32 H mmol/L
(22-30)
Total Bilirubin 2.7 H mg/dl
(0.2-1.3)
Albumin 3.0 L g/dl
(3.5-5.0)
Urine Ketones 1+ A
(Negative)
Ur Occult Blood Reflex 2+ A
(Negative)
Urine Nitrite (Reflex) Positive A
(Negative)
Urine Bilirubin 2+ A
(Negative)
Urine Urobilinogen 4+ A
(Neg - 1+)
Leukocyte Esterase Rfl Trace A
(Negative)
Urine RBC 7-10 A /HPF
(0-2)
Urine Bacteria (Reflex) Many A
(Negative)
Urine Albumin (Reflex) 1+ A
(Neg - Trace)
08/02/23 18:10
08/02/23 18:10
Vital Signs
Initial and Last Documented VS:
Initial Vital Signs
Pulse Resp
72 16
08/02/23 16:34 08/02/23 16:34
Last Documented Vital Signs
Temp Pulse Resp BP Pulse Ox
98.2 F 99 19 115/66 95
08/02/23 16:38 08/02/23 19:45 08/02/23 19:45 08/02/23 18:00 08/02/23 19:45
MDM/Problems Addressed
Differential Diagnosis Includes:
Generalized weakness. Question possible infectious source such as COVID or flu or pneumonia versus UTI. Will check for anemia. Will check for arrhythmia and interrogate pacemaker. Labs pending chest x-ray pending.
Patient's social situation may limit ability to discharge as she lives by herself and currently she is not able to walk secondary to generalized weakness
*Critical Care Note
Total Time (30-74mins, 75-104mins- exclusive of procedures): Not Applicable
Update Note
Update Note:
Pacemaker interrogation reviewed and demonstrates atrial undersensing. There were several episodes of atrial tachycardia yesterday. There were also 3 episodes of less than 3 seconds worth of ventricular tachycardia. Workup otherwise demonstrates
slightly improved appearance of the chest x-ray stable pulmonary edema BNP is slightly elevated. Likely UTI and urinalysis. Lives at home by herself too weak to ambulate was covered in urine in her own bed today. Will admit. Will cover with
Rocephin
ED Attending Note
-
Portions of this chart may have been created with voice recognition software.� Occasional wrong word or��sound alike� substitutions may have occurred due to the inherent limitations of voice recognition software.
Discharge Plan
Departure
Patient Disposition: Admit
Date of Disposition: 08/02/23
Time of Disposition: 20:03
Admit to: Telemetry
Presentation/result/management discussed w/ accepting MD/DO: Hospitalist
Discharge Problem:
Acute UTI
Prescriptions:
No Action
montelukast 10 mg Tablet
10 mg PO QPM
Eliquis 5 mg Tablet
5 mg PO BID Qty: 60 0RF
furosemide [Lasix] 80 mg tablet
80 mg PO DAILY@1500
polyvinyl alcohol 1.4 % Drops
1 drp BOTH EYES BIDPRN PRN (Reason: dryness)
rosuvastatin 20 mg Tablet
20 mg PO HS
fluticasone propion-salmeterol [Wixela Inhub] 250-50 mcg/dose Blister With Device
2 inh INHALATION R BIDPRN PRN (Reason: SOB)
spironolactone [Aldactone] 25 mg Tablet
25 mg PO DAILY
therapeutic multivitamin Tablet
1 tab PO DAILY Qty: 0
acetaminophen [Tylenol] 325 mg Tablet
650 mg PO BIDPRN PRN (Reason: mild pain)
omeprazole 20 mg Capsule,Delayed Release(Dr/Ec)
20 mg PO DAILY PRN (Reason: gerd)
polyethylene glycol 3350 [HealthyLax] 17 gram Powder In Packet
17 g PO DAILY Qty: 30 0RF
Rx Instructions:
new medication
midodrine 5 mg Tablet
10 mg PO BID Qty: 60 0RF
Rx Instructions:
new medication
digoxin 250 mcg (0.25 mg) Tablet
250 mcg PO NOON Qty: 30 0RF
Rx Instructions:
new medication
docusate sodium 100 mg Capsule
100 mg PO DAILY Qty: 30 0RF
Rx Instructions:
new medication
metoprolol succinate 25 mg Tablet Extended Release 24 Hr
37.5 mg PO DAILY Qty: 30 0RF
Rx Instructions:
dose decreased
dofetilide 500 mcg Capsule
500 mcg PO Q12H Qty: 60 0RF
Rx Instructions:
dose increased
potassium chloride 20 mEq Tablet Extended Release
40 meq PO DAILY Qty: 0 0RF
dofetilide [Tikosyn] 500 mcg capsule
500 mcg PO Q12H Qty: 6 0RF
Interventions
Interventions:
*Risk Screen - Suicide Last Done: 08/02/23 16:38
*General Assessment Last Done: 08/02/23 16:38
*Neglect/Abuse Screening Last Done: 08/02/23 16:38
*ED COVID-19 Vaccine History Last Done: 08/02/23 16:38
[2023-08-02 17:08] VITALS: BP 137/125
[2023-08-02 18:00] VITALS: BP 115/66
[2023-08-02 18:02] LABS: COVID-19 Antigen Negative (Negative)
[2023-08-02 18:18] LABS: % Basophils 1.1 % (0-2); % Eosinophils 2.5 % (0-6); % Immature Granulocytes 0.7 % (0-0.5); % Monocytes 9.6 % (1.7-9.3); % Neutrophils 77.1 % (42.2-75.2); Absolute Basophils 0.1 10^3/uL (0-0.2); Absolute Eosinophils 0.2 10^3/uL (0-0.7); Absolute Immature Granulocytes 0.1 10^3/uL (0-0.05); Absolute Lymphocytes 0.7 10^3/uL (1.2-3.4); Absolute Monocytes 0.7 10^3/uL (0.1-0.6); Absolute Neutrophils 5.8 10^3/uL (1.4-6.5); Hematocrit 38.2 % (37.0-47.0); Hemoglobin 12.4 g/dL (12.0-16.0); Mean Corp Hgb Conc. 32.5 g/dL (33.0-37.0); Mean Corpuscular Hgb 31.2 pg (27.0-31.0); Mean Corpuscular Volume 96.2 fL (81.0-99.0); Mean Platelet Volume 9.3 fL (7.4-10.4); Nucleated Red Blood Cells % 0 %; Platelet Count 367 10^3/uL (130-400); Red Blood Cell Count 3.97 10^6/uL (4.20-5.40); Red Cell Dist. Width 16.4 % (11.5-14.5); White Blood Cell Count 7.5 10^3/uL (4.8-10.8)
[2023-08-02 18:33] LABS: ALT (SGPT) 18 U/L (0-35); AST (SGOT) 31 U/L (14-36); Alkaline Phosphatase 95 U/L (38-126); Blood Urea Nitrogen 11 mg/dl (7-17); Carbon Dioxide 32 mmol/L (22-30); Chloride 97 mmol/L (98-107); Estimated Creatinine Clearance 122 ml/min; Glucose 81 mg/dl (70-99); Potassium 4.1 mmol/L (3.5-5.1); Sodium 135 mmol/L (135-145); Total Bilirubin 2.7 mg/dl (0.2-1.3); Total Protein 7.6 g/dl (6.3-8.2); eGFR > 60.00
[2023-08-02 18:38] LABS: NT-proBNP 10900 pg/ml
[2023-08-02 19:09] LABS: Urine Albumin 1+ (Neg - Trace); Urine Bilirubin 2+ (Negative); Urine Character Clear (Clear); Urine Glucose Negative (Negative); Urine Ketone 1+ (Negative); Urine Leukocyte Trace (Negative); Urine Nitrite Positive (Negative); Urine Occult Blood 2+ (Negative); Urine Urobilinogen 4+ (Neg - 1+)
[2023-08-02 19:10] LABS: Urine Color Amber
[2023-08-02 19:19] LABS: Urine Bacteria Many (Negative)
[2023-08-02] MEDS: ROCEPHIN 1000 MG IV (20:10)
[2023-08-02 20:20] VITALS: BP 100/50
--- NOTE | 2023-08-02 20:20 | HPS.HSE ---
Family Physician
-
Family Physician: NOT KNOW UNKNOWN - PT DOES
Chief Complaint
-
Weakness
History of Present Illness
Patient is a 68y F with PMH significant for CHF, PA-Fib and chronic disability who presents to ED complaining of generalized weakness. Patient was recently hospitalized from 07/15 - 07/28 (and prior to that from 07/05 - 07/08) for CHF and related
issues. Patient has had difficulties balancing her diuretic regimen with varying admissions for hypovolemia and hypervolemia. Patient was most recently discharged on 07/28 to home. She states that a neighbor has been assisting her and bringing her
meds / some meals. In general she has felt very weak since her discharge. She has not gotten out of bed at all in the past 3 days. She has eaten very little and she took no prescription meds today at all.
Patient has been soiling herself in bed and unable to change or toilet appropriately.
She complains of 'heavy palpitations' in the chest, occasional cough and increased SOB.
Patient is typically wheelchair-bound, but has been unable to transfer at all.
She reports fevers / chills 'sometimes' - but is unable to further explain this. She denies any dysuria or frequency.
Medical History
Past Medical History
Past Medical History: Reports Other
Additional Past Medical History:
Persistent atrial fibrillation
Chronic HFpEF
Hypertension.
Nonrheumatic mitral valve stenosis.
Dyslipidemia.
1st Degree AV block.
ASCVD / CVA, 1988, without residual deficits.
Allergic asthma.
Obstructive sleep apnea, non-compliant with CPAP.
GERD / Peptic ulcer disease.
Colon polyps.
Nephrolithiasis.
Ambulatory dysfunction.
Left breast cancer, 2010, status post left lumpectomy and axillary node dissection, chemotherapy, and radiation.
Skin cancer, status post multiple excisions.
Anxiety / Depression / PTSD
Morbid obesity, status post gastric banding
Past Surgical History: Reports Other
Additional Past Surgical History:
Atrial fibrillation ablation x2
Cardioversion x2
Cardiac catheterization
Gastric banding
.
Cholecystectomy.
Hernia repair.
Left breast lumpectomy and axillary lymph node dissection.
Tonsillectomy
Social History
Tobacco: Former Smoker (She is a former 1 pack per day cigarette smoker who quit tobacco products altogether in her late 20's. )
Alcohol: None
Drug: None
Family History
Family History: Not pertinent
Allergies / Home Medications
Allergies reflects when Allergies were last updated in [employer].
Home Medications with original date entered in [employer]
Allergy/Medication List:
Allergies
Allergy/AdvReac Type Severity Reaction Status Date / Time
codeine AdvReac Severe 'loopy' Verified 08/02/23 16:46
Home Medications
montelukast 10 mg tablet 10 mg PO QPM Lung/breathing issues 06/23/22
apixaban 5 mg tablet (Eliquis) 5 mg PO BID #60 tabs 07/01/22
furosemide 80 mg tablet (Lasix) 80 mg PO DAILY@1500 Fluid retention/Swelling 09/23/22
polyvinyl alcohol 1.4 % eye drops 1 drp BOTH EYES BIDPRN PRN dryness 02/17/23
rosuvastatin 20 mg tablet 20 mg PO HS High Cholesterol 02/17/23
fluticasone 250 mcg-salmeterol 50 mcg/dose blistr powdr for inhalation (Wixela Inhub) 2 inh inhalation R BIDPRN PRN SOB 02/22/23
spironolactone 25 mg tablet (Aldactone) 25 mg PO DAILY Fluid Retention/Swelling 02/22/23
therapeutic multivitamin 1 tab PO DAILY Supplement ##0 04/16/23
acetaminophen 325 mg tablet (Tylenol) 650 mg PO BIDPRN PRN mild pain 07/16/23
omeprazole 20 mg capsule,delayed release 20 mg PO DAILY PRN gerd 07/16/23
digoxin 250 mcg (0.25 mg) tablet 250 mcg PO NOON #30 tabs 07/29/23
docusate sodium 100 mg capsule 100 mg PO DAILY #30 caps 07/29/23
dofetilide 500 mcg capsule 500 mcg PO Q12H #60 caps 07/29/23
dofetilide 500 mcg capsule (Tikosyn) 500 mcg PO Q12H #6 caps 07/29/23
metoprolol succinate 25 mg tablet,extended release 24 hr 37.5 mg PO DAILY #30 tabs 07/29/23
midodrine 5 mg tablet 10 mg PO BID #60 tabs 07/29/23
polyethylene glycol 3350 17 gram oral powder packet (HealthyLax) 17 g PO DAILY #30 ea 07/29/23
potassium chloride 20 mEq tablet,extended release 40 meq PO DAILY #0 tabs 07/29/23
Review of Systems
-
History Source: Patient
A 12 point ROS was completed and negative except as noted: Yes
Constitutional: Reports Fatigue and Chills; Denies Fever
EENT: Denies Sore Throat
Respiratory: Reports Cough and Trouble Breathing
Cardiac: Reports Palpitations; Denies Chest Pain, Diaphoresis or Syncope
Abdomen/GI: Reports Nausea; Denies Abdominal Pain, Vomiting, Diarrhea, Bloody Stools or Black Stools
: Reports Incontinence; Denies Dysuria, Frequency or Flank Pain
Musculoskeletal: Reports Other (Back Pain); Denies Joint Pain or Edema
Neurological: Reports Weakness; Denies Dizzy or Headache
Psych: Reports Depression; Denies Anxiety
Physical Exam
Vital Signs
Vital Signs
Temp Pulse Resp BP Pulse Ox
98.2 F 99 19 115/66 95
08/02/23 16:38 08/02/23 19:45 08/02/23 19:45 08/02/23 18:00 08/02/23 19:45
Physical Exam
General: Other (68y F in no acute distress.)
HEENT: Moist mucous membranes, PERRLA and Other (Thick neck. No JVD.)
Respiratory: Other (Bibasilar rales about 1/2 up. No wheeze / rhonchi. Pos cough with deep inspiration.)
Cardiac: S1/S2, Regular Rhythm and Murmur (II/ GENNA)
GI: Non Tender, Non Distended, Normal Bowel Sounds and Other (Obese)
Musculoskeletal: No Clubbing, No Cyanosis and No Edema
Neuro: AO x 3
Psych: Depressed
Laboratory Results
-
08/02/23 18:10
08/02/23 18:10
Laboratory Results
Total Bilirubin 2.7 mg/dl (0.2-1.3) H 08/02/23 18:10
AST 31 U/L (14-36) 08/02/23 18:10
ALT 18 U/L (0-35) 08/02/23 18:10
Alkaline Phosphatase 95 U/L (38-126) 08/02/23 18:10
Impression/Plan
-
A/P:� Patient is a 68y F with PMH significant for paroxysmal A-Fib, CHFpEF and obesity who presents to ED for evaluation of generalized weakness and fatigue.
Generalized Weakness / Fatigue
- Observe overnight for further evaluation and treatment.
- Suspect that symptoms are largely secondary to deconditioning / recent hospitalizations.
- PT / OT evals in AM.
- Patient would likely benefit from SNF prior to discharge home and she seems in agreement.
- Wheelchair-bound at baseline.
Chronic HFrEF
- Perhaps mild chronic component due to lack of medication.
- CXR shows persistent edema - though improved from prior.
- BNP much more elevated compared to prior.
- Continue Lasix via IV route for now.
- Follow I/Os, daily weights, etc.
- Continue other CV med regimen.
Paroxysmal Atrial Fibrillation
- Appears to be in sinus rhythm at present; however, reports episodes of palpitations over the past 3 days.
- Had tachycardia mediated cardiomyopathy during recent visit and ? recurrence of this.
- Continue current CV medications for now - including Tikosyn, etc.
- Continue Eliquis for stroke risk reduction.
- Monitor on telemetry for any tachyarrhythmia.
COPD without Acute Exacerbation
RAMY Suspect
Nocturnal Hypoxemia
Chronic Hypoxemic Respiratory Failure
Chronic Pulmonary Nodules
- Patient stable on 5 lpm which she was discharged on.
- Continue IV diuresis efforts as noted above.
- Nebs, supplemental O2, etc.
- Patient should follow-up as an outpatient to complete formal PSG and arrange outpatient PAP therapy.
Hypotension
- Stable. Continue midodrine to prevent symptomatic hypotension / to allow effective diuresis.
- Follow for changes in BP.
Morbid Obesity secondary to excess calories and immobility
- Affects all aspects of care.
- Encourage healthy diet.
- Sufficient increase in exercise not likely to be possible in this patient chronically wheelchair confined.
DVT Prophylaxis: On Eliquis
Code Status: DNR
[2023-08-02 23:07] VITALS: BMI 41.0
[2023-08-02] MEDS: TIKOSYN 500 MCG PO (23:14)
[2023-08-02] MEDS: CRESTOR 20 MG PO (23:14)
[2023-08-02 23:32] VITALS: BP 113/65; BMI 41.0
--- NOTE | 2023-08-02 23:40 | PTCARENOTE ---
Received pt from ED via stretcher, pulled over onto bed. AAOx3, VSS, no complaints of pain. Oriented to floor, call simon within reach.
[2023-08-03] VITALS (10 sets, daily range): BP systolic 81–119; BP diastolic 46–78; PULSE 73–103; O2SAT 93; BMI 40.9
[2023-08-03 00:10] LABS: Troponin I 0.039 ng/ml
[2023-08-03] MEDS: TOPROL XL 37.5 MG PO (05:28)
--- NOTE | 2023-08-03 05:57 | PTCARENOTE ---
Pt's HR up to 140s-150s, asymptomatic. EKG revealing SVT. BP 105/72, HR fluctuating between 100s-130s. HIMS CODER made aware, orders to give 08:00 dose of Toprol XL. HR now in the 90s-100s on tele monitor. Pt repositioned for comfort. Call simon within
reach, plan of care ongoing
[2023-08-03 06:55] LABS: Hematocrit 38.7 % (37.0-47.0); Hemoglobin 12.6 g/dL (12.0-16.0); Mean Corp Hgb Conc. 32.6 g/dL (33.0-37.0); Mean Corpuscular Hgb 31.6 pg (27.0-31.0); Mean Platelet Volume 9.6 fL (7.4-10.4); Platelet Count 374 10^3/uL (130-400); Red Blood Cell Count 3.99 10^6/uL (4.20-5.40); Red Cell Dist. Width 16.2 % (11.5-14.5); White Blood Cell Count 7.3 10^3/uL (4.8-10.8)
[2023-08-03 07:21] LABS: Troponin I 0.029 ng/ml
[2023-08-03] MEDS: DUONEB 3 ML INH ×4 (07:47→20:05)
[2023-08-03] MEDS: PROTONIX 40 MG PO (08:28)
[2023-08-03] MEDS: ProAmatine 10 MG PO ×2 (08:28→15:43)
[2023-08-03] MEDS: ELIQUIS 5 MG PO ×2 (08:28→20:06)
[2023-08-03 08:56] LABS: Blood Urea Nitrogen 12 mg/dl (7-17); Calcium 8.7 mg/dl (8.4-10.2); Carbon Dioxide 30 mmol/L (22-30); Chloride 97 mmol/L (98-107); Estimated Creatinine Clearance 122 ml/min; Glucose 97 mg/dl (70-99); Magnesium 1.8 mg/dl (1.6-2.3); Potassium 3.9 mmol/L (3.5-5.1); Sodium 134 mmol/L (135-145); eGFR > 60.00
--- NOTE | 2023-08-03 09:33 | VNURNOTE ---
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
[2023-08-03] MEDS: ALDACTONE 25 MG PO (09:50)
[2023-08-03] MEDS: LASIX 40 MG IV (09:50)
[2023-08-03] MEDS: KCL 40 MEQ PO (09:51)
[2023-08-03] MEDS: TIKOSYN 500 MCG PO ×2 (09:51→21:20)
--- NOTE | 2023-08-03 10:08 | CON.CAR ---
Addendum entered and electronically signed by Amanuel Delacruz MD 08/03/23 13:07:
I saw and examined the patient.
The MUSIC INDUSTRY INTERN's note was reviewed and I agree with the note.
68 year old female (known to Dr. Montes, her primary junior php developer) with persistent atrial fibrillation on Eliquis, s/p PVI 09/22/22, repeat PVI and AT/Afl ablation 02/2023, recurrent atrial arrhythmias, pacemaker chronic HFpEF, moderate mitral
stenosis, mild , HTN, morbid obesity, and lymphedema. Patient with recent hospitalization and discharged 07/29/2023 presents with weakness and unable to get out of bed for 3 days. She also did not take her medications yesterday. Patient
admitted for evaluation. On initial ECG patient had had SVT at 134 bpm. Patient currently in sinus rhythm. She has had some runs of narrow complex tachycardia some of which could have been PAF and atrial tachycardia or SVT. This is all
consistent with patient's prior history. Patient may have some increase in her arrhythmias due to missed doses of medication prior to admission as well as other underlying medical illness including UTI for which she is currently being treated.
-Continue to monitor control of arrhythmias on her current medical regimen
-Digoxin level
-Pacemaker interrogation
-Treatment of UTI as directed by primary team
Original Note:
Consultation
Consultation Request
Date/Time Consultation Requested: 08/03/23 08:45
Date/Time Consultation Performed: 08/03/23 10:00
Requesting Provider: Dr. Choudhury
Performing Provider: ZAKI Calhoun for Dr. Delacruz
Reason for Consultation: Tachycardia
Medical History
-
Chief Complaint: Weakness
History of Present Illness:
Luciana Hunt is a 68 year old female (known to Dr. Montes, her primary junior php developer) with persistent atrial fibrillation on Eliquis, s/p PVI 09/22/22, repeat PVI and AT/Afl ablation 02/2023, with recurrence and now on Tikosyn, then MDT dual chamber
PPM, chronic HFpEF, moderate mitral stenosis, mild , 1st degree AVB, IVCD, HTN, abnormal EKG, CVA in 1988, left breast cancer 2010 s/p chemo, surgery, and radiation, chronic PIERCE, morbid obesity, and lymphedema who presented with weakness. She was
discharged home 07/29/23 after admission with atrial fibrillation with RVR and heart failure/pulmonary edema. She was unable to care for herself at home. She reports she was profoundly weak and was in bed for the last 3 days. She is normally in a
wheelchair but has been unable to bathe, transfer to wheelchair, and void in the bathroom. She was found to have an elevated proBNP and pulmonary edema on CXR. She was in SVT on her EKG,
Past Medical History
Past Medical History: Arrhythmias (Persistent atrial fibrillation, atrial tachycardia ), Cancer (Breast [leeft]), CHF, CVA, HTN, Valvular Disease (Mitral stenosis) and Other (Lymphedema)
Past Surgical History: Cholecystectomy, Tonsilectomy and Other (Gastric band)
Social History
Alcohol: None
Drug: None
Living: Alone
Family History
Family History: Reviewed & Not Pertinent
Allergies / Home Medications
Allergy/AdvReac Type Severity Reaction Status Date / Time
codeine Allergy 'loopy' Verified 08/02/23 22:29
Medication Instructions Recorded Confirmed Type
montelukast 10 mg tablet 10 mg PO QPM Lung/breathing issues 06/23/22 08/02/23 History
apixaban 5 mg tablet (Eliquis) 5 mg PO BID #60 tabs 07/01/22 08/02/23 Rx
furosemide 80 mg tablet (Lasix) 80 mg PO DAILY@1500 Fluid 09/23/22 08/02/23 History
retention/Swelling
polyvinyl alcohol 1.4 % eye drops 1 drp BOTH EYES BIDPRN PRN dryness 02/17/23 08/02/23 History
rosuvastatin 20 mg tablet 20 mg PO HS High Cholesterol 02/17/23 08/02/23 History
fluticasone 250 mcg-salmeterol 50 2 inh inhalation R BIDPRN PRN SOB 10/16/23 03/25/24 History
mcg/dose blistr powdr for
inhalation (Wixela Inhub)
spironolactone 25 mg tablet 25 mg PO DAILY Fluid 02/22/23 08/02/23 History
(Aldactone) Retention/Swelling
therapeutic multivitamin 1 tab PO DAILY Supplement ##0 04/16/23 08/02/23 History
acetaminophen 325 mg tablet 650 mg PO BIDPRN PRN mild pain 07/16/23 08/02/23 History
(Tylenol)
omeprazole 20 mg capsule,delayed 20 mg PO DAILY gerd 07/16/23 08/02/23 History
release
digoxin 250 mcg (0.25 mg) tablet 250 mcg PO NOON #30 tabs 07/29/23 08/02/23 Rx
dofetilide 500 mcg capsule 500 mcg PO Q12H #60 caps 07/29/23 08/02/23 Rx
metoprolol succinate 25 mg 37.5 mg PO DAILY #30 tabs 07/29/23 08/02/23 Rx
tablet,extended release 24 hr
midodrine 5 mg tablet 10 mg PO BID #60 tabs 07/29/23 08/02/23 Rx
polyethylene glycol 3350 17 gram 17 g PO DAILY #30 ea 07/29/23 08/02/23 Rx
oral powder packet (HealthyLax)
potassium chloride 20 mEq 40 meq PO DAILY #0 tabs 07/29/23 08/02/23 Rx
tablet,extended release
docusate sodium 100 mg capsule 100 mg PO DAILY PRN constipation 08/02/23 08/02/23 History
Review of Systems
-
History Source: Patient
All other systems: Negative unless noted
Constitutional: Fatigue
Neurological: Weakness
Physical Exam
Vital Signs
Temp Pulse Resp BP Pulse Ox
100.1 F 88 20 102/70 93
08/03/23 07:55 08/03/23 09:50 08/03/23 07:55 08/03/23 09:50 08/03/23 10:03
Lab Results
08/03/23 06:43
08/03/23 08:05
Troponin I 0.029 ng/ml D 08/03/23 06:43
Mhs-E-Roazawdbtxe Pept 45302 pg/ml 08/02/23 18:10
Physical Exam
General: Well Developed, Well Nourished, No Apparent Distress and Comfortable
HEENT: Normocephalic, Anicteric and Moist Mucous Membranes
Respiratory: Crackles
Cardiac: S1/S2 and Regular Rhythm
Breast: Deferred by me
GI: Soft, Non Tender, Non Distended and Normal Bowel Sounds
Rectal: Deferred by Provider
Genito-urinary: No Costovertebral Tender
Musculoskeletal: No Clubbing and No Cyanosis
Skin: Warm and Dry
Neuro: AO x 3
Hematologic/Lymphatic: No Lymphadenopathy
Psych: Calm
Impression / Plan
-
BACKGROUND: 68F with persistent atrial fibrillation on Eliquis, s/p PVI 09/22/22, repeat PVI and AT/Afl ablation 02/2023, with recurrence and now on Tikosyn, then MDT dual chamber PPM, chronic HFpEF, moderate mitral stenosis, mild , 1st degree AVB,
IVCD, HTN, abnormal EKG, CVA in 1988, left breast cancer 2010 s/p chemo, surgery, and radiation, chronic PIERCE, morbid obesity, and lymphedema who presented with weakness
Skirt Panel Assembler: Dr. Montes
Abnormal UA, per primary
Weakness, suspected to be related to deconditioning, per primary
HFpEF (recovered), acute on chronic
- Lowest documented weight, dry weight will need to be adjusted
- Diuresis with furosemide 80mg IV BID
- Echo 07/20/23 showed LVEF of 30%, recovered to 50% 07/26/23
- Normal cors in 2022
- GDMT as tolerated
- On metoprolol succinate, Aldactone and furosemide, and we are limited due to hypotension.
- ACEi not tolerated due to hypotension.
- SGLT2 is not covered by her insurance, check PA in outpatient setting
Atrial arrhythmias: SVT, AT, atrial fibrillation
- SVT on admission
- Oral Anticoagulation: Apixaban 5mg BID
- [id number]: score at least 5 (Heart failure, prior Stroke/TIA, age 65-74, female gender)
- AAIR�DDDR from 60-110bpm last admission
- Continue Tikosyn 500 mcg twice daily
- Decreased BB with continued hypotension.�Metoprolol now at to 37.5 mg BID
- On digoxin 250 mcg QD, check dig level given weakness
- EP records reviewed: Given patient's extensive scarring of the right and left atria, can consider addition of a CS lead and AVJ ablation
Abnormal troponin, non-ischemic myocardial injury in the setting of tachyarrhythmia
- Peak on admission, 0.039, trended down
- Chest pain free
Chronic hypotension, on midodrine
Medtronic PPM, last device check 07/01/2023 with 3 atrial fibrillation episodes, max lasting 5 minutes, normal lead function
Mitral stenosis, moderate, stable
COPD with chronic hypoxemic respiratory failure, on 5 LPM continuously
Remote Stroke, without residual deficit
Prior Breast cancer s/p lumpectomy, XRT, & chemotherapy
Obesity, BMI 40, she would benefit from weight loss
Lymphedema
Data Reviewed
-
EKG: Report Reviewed by me (SVT, lateral T wave abnormality, rate 134)
Radiology: Report Reviewed by me (CXR: Mild pulmonary edema, improved but unresolved when compared with the prior study)
Medical Tests (Nuc Med, Echo etc): Report Reviewed by me (Prior echo as above)
Labs: Labs Reviewed by me
Old Records: Reviewed
--- NOTE | 2023-08-03 12:18 | CM ---
Addendum entered by Chayo Reno 08/03/23 12:22:
JOHANSEN reviewed, refused to sign, placed in patients chart.
Original Note:
Patient seen bedside, IA completed. Patient reports she was unable to get out of bed at home and her neighbor came to check on her. Patient reports she was unable to get up to use the bathroom, patient reports typically she is able to get into her
wheelchair but was unable to do so this time. Patient reports she lives alone with her cat in a one story home, no steps to enter. Patient reports she knows she needs some type of rehab. CM will watch for PT/OT evaluations. Per Olena, patient is
current with [facility]. Patient denies SNF history. Patient confirms PCP Qiana Rodriguez, pharmacy [facility]. CM will follow for discharge planning needs.
Plan; SNF vs home with [facility] pending PT/OT evals.
[2023-08-03 12:35] LABS: Troponin I 0.027 ng/ml
[2023-08-03] MEDS: LANOXIN 250 MCG PO (12:39)
--- NOTE | 2023-08-03 14:01 | W.PN.HOSP.TC ---
Today's Communication/Plan
-
abx
iv lasix
dig level
tele monitoring
Assessment / Plan
Assessment / Plan
Physical Exam
General: Well Developed, Well Nourished, No Apparent Distress and Comfortable
HEENT: Normocephalic, Anicteric and Moist Mucous Membranes
Respiratory: Crackles
Cardiac: S1/S2 and Regular Rhythm
Breast: Deferred by me
GI: Soft, Non Tender, Non Distended and Normal Bowel Sounds
Rectal: Deferred by Provider
Genito-urinary: No Costovertebral Tender
Musculoskeletal: No Clubbing and No Cyanosis
Skin: Warm and Dry
Neuro: AO x 3
Hematologic/Lymphatic: No Lymphadenopathy
Psych: Calm
A/P:� Patient is a 68y F with PMH significant for paroxysmal A-Fib, CHFpEF and obesity who presents to ED for evaluation of generalized weakness and fatigue.
Generalized Weakness / Fatigue
�- Suspect that symptoms are largely secondary to deconditioning / recent hospitalizations + UTI and arrythmias
�- PT / OT evals in AM.
�- Patient would likely benefit from SNF prior to discharge home and she seems in agreement.
�- Wheelchair-bound at baseline.
-Treat UTI, Arrhythmias
Acute on Chronic HFrEF
�- BNP much more elevated compared to prior.
�- Continue Lasix via IV route for now.
�- Follow I/Os, daily weights, etc.
�- Continue other CV med regimen.
-F/u Cards recs
Paroxysmal Atrial Fibrillation
Had tachycardia mediated cardiomyopathy during recent visit and ? recurrence of this.
�- Appears to be in sinus rhythm at present; however, reports episodes of palpitations over the past 3 days.
�- may be related to compliance issues
- F/u Dig levels
- PPM interrogation
- monitor Tele
�- Continue current CV medications for now - including Tikosyn, etc.
�- Continue Eliquis for stroke risk reduction.
UTI
-Ceftriaxone
-F/u cultures
COPD without Acute Exacerbation
RAMY Suspect
Nocturnal Hypoxemia
Chronic Hypoxemic Respiratory Failure
Chronic Pulmonary Nodules
�- Patient stable on 5 lpm which she was discharged on.
�- Continue IV diuresis efforts as noted above.
�- Nebs, supplemental O2, etc.
�- Patient should follow-up as an outpatient to complete formal PSG and arrange outpatient PAP therapy.
Hypotension
�- Stable.� Continue midodrine to prevent symptomatic hypotension / to allow effective diuresis.
�- Follow for changes in BP.
Morbid Obesity secondary to excess calories and immobility
�- Affects all aspects of care.
�- Encourage healthy diet.
�- Sufficient increase in exercise not likely to be possible in this patient chronically wheelchair confined.
Hyponatremia
-ctm
DVT Prophylaxis:� On Eliquis
Code Status:� DNR
Anticipated Discharge: 24 - 48 hours
Subjective/Interval History
-
Date of Service: August 03, 2023
no acute events
Objective Data
-
Labs:
Laboratory Results
08/03/23 08/03/23
06:43 08:05
WBC 7.3
Hgb 12.6
Hct 38.7
Plt Count 374
Sodium Cancelled 134 L
Potassium Cancelled 3.9
Chloride Cancelled 97 L
Carbon Dioxide Cancelled 30
BUN Cancelled 12
Creatinine Cancelled 0.6
Glucose Cancelled 97
Calcium Cancelled 8.7
Vital Signs:
Vital Signs
Temp Pulse Resp BP Pulse Ox
98.5 F 72 18 119/76 93
08/03/23 12:25 08/03/23 12:39 08/03/23 12:25 08/03/23 12:25 08/03/23 12:25
I&O
08/02/23 08/03/2308/03/24
06:59 06:59 06:59
Intake Total 650 / 650
Output Total 100 / 100
Balance 550 / 550
Review of Systems
-
History Source: Patient
All other systems: Not reviewed unless documented
Physical Exam
-
General: No Apparent Distress
Respiratory: Crackles (few bibasal crackles); Negative Wheezes
Cardiac: Regular Rhythm and S1/S2
GI: Soft
Neuro: AO x 3
Data Reviewed
-
Diagnostic Radiology: Image personally visualized and interpreted and Report Reviewed by me
Labs: Labs Reviewed by me
--- NOTE | 2023-08-03 14:56 | PTCARENOTE ---
Patient with frequent productive cough. Provider notified. Guaifenesin ordered PRN see JUL. Sputum culture pending. Provider also notified of labile pressures throughout shift.
[2023-08-03] MEDS: ROBITUSSIN 200 MG PO ×2 (14:58→20:05)
[2023-08-03] MEDS: ROCEPHIN 1000 MG IV (14:58)
[2023-08-03 15:46] LABS: Procalcitonin 0.15 ng/ml (0.0-0.25)
[2023-08-03] MEDS: SINGULAIR 10 MG PO (17:07)
[2023-08-03] MEDS: CRESTOR 20 MG PO (20:06)
[2023-08-04 03:39] VITALS: BP 100/58
[2023-08-04] MEDS: ROBITUSSIN 200 MG PO ×2 (03:58→21:11)
--- NOTE | 2023-08-04 04:10 | DOWNTIME ---
There was a [employer] Downtime on 08/04/2023 from 0100 to 08/04/2023 at 0322. Downtime documentation of patient's care, including medication administrations, has been reconciled in the electronic record per guidelines. Refer to the
patient's paper chart under the miscellaneous tab to see printed paper medication records and downtime forms.
[2023-08-04 06:00] VITALS: BMI 41.0
[2023-08-04 06:18] LABS: Hematocrit 40.4 % (37.0-47.0); Hemoglobin 12.6 g/dL (12.0-16.0); Mean Corp Hgb Conc. 31.2 g/dL (33.0-37.0); Mean Corpuscular Hgb 30.7 pg (27.0-31.0); Mean Corpuscular Volume 98.5 fL (81.0-99.0); Mean Platelet Volume 9.7 fL (7.4-10.4); Platelet Count 359 10^3/uL (130-400); Red Cell Dist. Width 16.2 % (11.5-14.5); White Blood Cell Count 7.6 10^3/uL (4.8-10.8)
[2023-08-04 06:56] LABS: Blood Urea Nitrogen 15 mg/dl (7-17); Calcium 8.7 mg/dl (8.4-10.2); Carbon Dioxide 31 mmol/L (22-30); Chloride 101 mmol/L (98-107); Digoxin 0.8 ng/ml (0.8-2.0); Estimated Creatinine Clearance 104 ml/min; Glucose 98 mg/dl (70-99); Potassium 3.9 mmol/L (3.5-5.1); Sodium 135 mmol/L (135-145); eGFR > 60.00
[2023-08-04] MEDS: DUONEB 3 ML INH ×4 (07:45→19:36)
[2023-08-04 07:50] VITALS: BP 103/56; BP 99/64; PULSE 87; PULSE 88
--- NOTE | 2023-08-04 08:31 | W.PN.CD ---
Today's Communication / Plan
-
transition to PO lasix
Impression / Plan
-
BACKGROUND: 68F with persistent atrial fibrillation on Eliquis, s/p PVI 09/22/22, repeat PVI and AT/Afl ablation 02/2023, with recurrence and now on Tikosyn, then MDT dual chamber PPM, chronic HFpEF, moderate mitral stenosis, mild , 1st degree AVB,
IVCD, HTN, abnormal EKG, CVA in 1988, left breast cancer 2010 s/p chemo, surgery, and radiation, chronic PIERCE, morbid obesity, and lymphedema who presented with weakness
Stock Plan Administrator: Dr. Montes
Abnormal UA, per primary
Weakness, suspected to be related to deconditioning, per primary
-likely needs rehab after this hospitalization
HFpEF, acute on chronic, improved s/p IV lasix
- Echo 07/20/23 showed LVEF of 30%, recovered to 50% 07/26/23
- Normal cors in 2022
- Lowest documented weight, dry weight will need to be adjusted: 122kg
- transition to lasix 80mg PO daily
- continue aldactone; she did not have coverage for SGLTi
Atrial arrhythmias: SVT, AT, atrial fibrillation
- SVT on admission
- Oral Anticoagulation: Apixaban 5mg BID
- [id number]: score at least 5 (Heart failure, prior Stroke/TIA, age 65-74, female gender)
- AAIR�DDDR from 60-110bpm last admission
- Continue Tikosyn 500 mcg twice daily
- Decreased BB with continued hypotension.�Metoprolol now at to 37.5 mg BID
- On digoxin 250 mcg QD, check dig level given weakness: 0.8
- EP records reviewed: Given patient's extensive scarring of the right and left atria, being evaluated for addition of a CS lead and AVJ ablation
Abnormal troponin, non-ischemic myocardial injury in the setting of tachyarrhythmia
- Peak on admission, 0.039, trended down
- Chest pain free
Chronic hypotension, on midodrine
Medtronic PPM, last device check 07/01/2023 with 3 atrial fibrillation episodes, max lasting 5 minutes, normal lead function
Mitral stenosis, moderate, stable
COPD with chronic hypoxemic respiratory failure, on 5 LPM continuously
Remote Stroke, without residual deficit
Prior Breast cancer s/p lumpectomy, XRT, & chemotherapy
Obesity, BMI 40, she would benefit from weight loss
Lymphedema
Physical Exam
Vital Signs/Labs
Vital Signs
Temp Pulse Resp BP Pulse Ox
97.5 F 78 18 100/58 93
08/04/23 07:50 08/04/23 03:39 08/04/23 03:39 08/04/23 03:39 08/04/23 03:39
08/03/23 08/04/23 08/05/23
06:59 06:59 06:59
Actual Weight 122.016 kg 122.215 kg
08/04/23 05:52
08/04/23 05:52
Magnesium 1.8 mg/dl (1.6-2.3) 08/03/23 08:05
Digoxin 0.8 ng/ml (0.8-2.0) 08/04/23 05:52
08/02/23
18:10
[id number] Pept 47325
LAB Results
08/02/23 08/03/23 08/03/23
23:33 06:43 11:39
Troponin I 0.039 H* 0.029 D 0.027
Physical Exam
Constitutional: No acute distress and Comfortable
EENT: Moist mucous membranes
Cardiovascular: Pedal edema is absent, JVD pressure is normal, Systolic murmur absent and Rhythm/rate is irregular
Respiratory: Respiratory effort normal and Lungs clear to auscul.
GI: Soft, Distention absent and Flat
Neuro/Psych: AO x 3
Data Reviewed
-
Date of Service: August 04, 2023
EKG: Other (Tele: sinus, brief SVT, occasional pacing)
Labs: Labs Reviewed by me
[2023-08-04] MEDS: TIKOSYN 500 MCG PO ×2 (09:02→21:11)
[2023-08-04] MEDS: LASIX 80 MG PO (09:02)
[2023-08-04] MEDS: ProAmatine 10 MG PO ×2 (09:03→17:20)
[2023-08-04] MEDS: TOPROL XL 37.5 MG PO (09:04)
[2023-08-04] MEDS: ALDACTONE 25 MG PO (09:04)
[2023-08-04] MEDS: ELIQUIS 5 MG PO ×2 (09:05→21:11)
[2023-08-04] MEDS: KCL 40 MEQ PO (09:05)
[2023-08-04] MEDS: PROTONIX 40 MG PO (09:05)
--- NOTE | 2023-08-04 11:53 | CM ---
Patient seen bedside, CM discussed PT/OT recommendation of SNF. Patient hesitant but reports she knows she would benefit from SNF. CM will send referrals to local SNFS. CM will continue to follow for discharge planning needs.
Plan; SNF pending accepting facility, will require auth.
[2023-08-04] MEDS: LANOXIN 250 MCG PO (12:07)
--- NOTE | 2023-08-04 12:32 | W.PN.HOSP.TC ---
Today's Communication/Plan
-
switch to po lasix
stop abx
dc ready, pending placement
Assessment / Plan
Assessment / Plan
Physical Exam
General: Well Developed, Well Nourished, No Apparent Distress and Comfortable
HEENT: Normocephalic, Anicteric and Moist Mucous Membranes
Respiratory: Crackles
Cardiac: S1/S2 and Regular Rhythm
Breast: Deferred by me
GI: Soft, Non Tender, Non Distended and Normal Bowel Sounds
Rectal: Deferred by Provider
Genito-urinary: No Costovertebral Tender
Musculoskeletal: No Clubbing and No Cyanosis
Skin: Warm and Dry
Neuro: AO x 3
Hematologic/Lymphatic: No Lymphadenopathy
Psych: Calm
A/P:� Patient is a 68y F with PMH significant for paroxysmal A-Fib, CHFpEF and obesity who presents to ED for evaluation of generalized weakness and fatigue.
Generalized Weakness / Fatigue
�- Suspect that symptoms are largely secondary to deconditioning / recent hospitalizations, arrhythmias
�- PT / OT evals in AM - pending placement to rehab
�- Patient would likely benefit from SNF prior to discharge home and she seems in agreement.
�- Wheelchair-bound at baseline.
Acute on Chronic HFrEF
�- BNP much more elevated compared to prior.
�- Lasix via IV - transition to PO 80 mg lasix daily
�- Follow I/Os, daily weights, etc.
�- Continue other CV med regimen.
-F/u Cards recs
-Continue aldactone; she did not have coverage for SGLTi
Paroxysmal Atrial Fibrillation
Had tachycardia mediated cardiomyopathy during recent visit and ? recurrence of this.
�- Appears to be in sinus rhythm at present; however, reports episodes of palpitations over the past 3 days.
�- may be related to compliance issues
- F/u Dig levels: .8
-Reduce Metoprolol dosing
-Cont dig
-Continue Tikosyn
- PPM interrogated
- monitor Tele
�- Continue current CV medications for now - including Tikosyn, etc.
�- Continue Eliquis for stroke risk reduction.
#Asymptomatic Bacteruria
--urine cultures negative
-stop abx
Abnormal troponin, non-ischemic myocardial injury
-2/2 to arrhythmias
-no chest pain
-cards on board
COPD without Acute Exacerbation
RAMY Suspect
Nocturnal Hypoxemia
Chronic Hypoxemic Respiratory Failure
Chronic Pulmonary Nodules
�- Patient stable on 5 lpm which she was discharged on.
�- lasix
�- Nebs, supplemental O2, etc.
�- Patient should follow-up as an outpatient to complete formal PSG and arrange outpatient PAP therapy.
Hypotension
�- Stable.� Continue midodrine to prevent symptomatic hypotension / to allow effective diuresis.
�- Follow for changes in BP.
Morbid Obesity secondary to excess calories and immobility
�- Affects all aspects of care.
�- Encourage healthy diet.
�- Sufficient increase in exercise not likely to be possible in this patient chronically wheelchair confined.
Hyponatremia
-ctm
DVT Prophylaxis:� On Eliquis
Code Status:� DNR
DC ready; CM aware - pending placement
Anticipated Discharge: Within 24 hours
Subjective/Interval History
-
Date of Service: August 04, 2023
No acute events
Objective Data
-
Labs:
Laboratory Results
08/04/23
05:52
WBC 7.6
Hgb 12.6
Hct 40.4
Plt Count 359
Sodium 135
Potassium 3.9
Chloride 101
Carbon Dioxide 31 H
BUN 15
Creatinine 0.7
Glucose 98
Calcium 8.7
Vital Signs:
Vital Signs
Temp Pulse Resp BP Pulse Ox
97.5 F 75 18 100/58 94
03/27/24 11:28 08/04/23 12:07 08/04/23 11:48 08/04/23 09:04 08/04/23 11:48
I&O
08/03/23 08/04/23 08/05/23
06:59 06:59 06:59
Intake Total 650 / 650 720 / 720
Output Total 100 / 100
Balance 550 / 550 720 / 720
Review of Systems
-
History Source: Patient
All other systems: Not reviewed unless documented
Physical Exam
-
General: No Apparent Distress
Respiratory: Crackles (few bibasal crackles); Negative Wheezes
Cardiac: Regular Rhythm and S1/S2
GI: Soft
Neuro: AO x 3
Data Reviewed
-
Diagnostic Radiology: Image personally visualized and interpreted and Report Reviewed by me
Labs: Labs Reviewed by me
[2023-08-04] MEDS: SINGULAIR 10 MG PO (17:20)
[2023-08-04 19:30] VITALS: BP 121/65
[2023-08-04] MEDS: CRESTOR 20 MG PO (21:11)
[2023-08-04 23:38] VITALS: BP 90/65
[2023-08-05] VITALS (7 sets, daily range): BP systolic 87–117; BP diastolic 54–84; PULSE 70; O2SAT 92; BMI 40.8
[2023-08-05] MEDS: DUONEB 3 ML INH ×4 (07:16→19:39)
[2023-08-05 07:59] LABS: Blood Urea Nitrogen 15 mg/dl (7-17); Calcium 8.7 mg/dl (8.4-10.2); Carbon Dioxide 28 mmol/L (22-30); Chloride 98 mmol/L (98-107); Estimated Creatinine Clearance 122 ml/min; Glucose 101 mg/dl (70-99); Magnesium 1.9 mg/dl (1.6-2.3); Potassium 4.1 mmol/L (3.5-5.1); Sodium 135 mmol/L (135-145); eGFR > 60.00
[2023-08-05 08:00] LABS: Hematocrit 40.1 % (37.0-47.0); Hemoglobin 12.2 g/dL (12.0-16.0); Mean Corp Hgb Conc. 30.4 g/dL (33.0-37.0); Mean Corpuscular Hgb 30.3 pg (27.0-31.0); Mean Corpuscular Volume 99.8 fL (81.0-99.0); Mean Platelet Volume 9.9 fL (7.4-10.4); Platelet Count 368 10^3/uL (130-400); Red Blood Cell Count 4.02 10^6/uL (4.20-5.40); Red Cell Dist. Width 16.2 % (11.5-14.5); White Blood Cell Count 7.2 10^3/uL (4.8-10.8)
[2023-08-05] MEDS: PROTONIX 40 MG PO (09:13)
[2023-08-05] MEDS: ProAmatine 10 MG PO ×2 (09:13→18:01)
[2023-08-05] MEDS: KCL 40 MEQ PO (09:13)
[2023-08-05] MEDS: LASIX 80 MG PO ×2 (09:13→09:14)
[2023-08-05] MEDS: TOPROL XL 37.5 MG PO (09:14)
[2023-08-05] MEDS: ELIQUIS 5 MG PO ×2 (09:14→20:11)
[2023-08-05] MEDS: ALDACTONE 25 MG PO (09:15)
[2023-08-05] MEDS: TIKOSYN 500 MCG PO ×2 (10:00→21:15)
--- NOTE | 2023-08-05 11:20 | W.PN.CD ---
Today's Communication / Plan
-
stable on PO lasix
discharge planning
Impression / Plan
-
BACKGROUND: 68F with persistent atrial fibrillation on Eliquis, s/p PVI 09/22/22, repeat PVI and AT/Afl ablation 02/2023, with recurrence and now on Tikosyn, then MDT dual chamber PPM, chronic HFpEF, moderate mitral stenosis, mild , 1st degree AVB,
IVCD, HTN, abnormal EKG, CVA in 1988, left breast cancer 2010 s/p chemo, surgery, and radiation, chronic PIERCE, morbid obesity, and lymphedema who presented with weakness
[employer] Operations: Dr. Montes
Abnormal UA, per primary
Weakness, suspected to be related to deconditioning, per primary
-likely needs rehab after this hospitalization
HFpEF, acute on chronic, improved s/p IV lasix
- Echo 07/20/23 showed LVEF of 30%, recovered to 50% 07/26/23
- Normal cors in 2022
- Lowest documented weight, dry weight will need to be adjusted: 122kg
- stable on lasix 80mg PO daily
- continue aldactone; she did not have coverage for SGLTi
Atrial arrhythmias: SVT, AT, atrial fibrillation
- SVT on admission
- Oral Anticoagulation: Apixaban 5mg BID
- [id number]: score at least 5 (Heart failure, prior Stroke/TIA, age 65-74, female gender)
- AAIR�DDDR from 60-110bpm last admission
- Continue Tikosyn 500 mcg twice daily
- Decreased BB with continued hypotension.�Metoprolol now at to 37.5 mg BID
- On digoxin 250 mcg QD, check dig level given weakness: 0.8
- EP records reviewed: Given patient's extensive scarring of the right and left atria, being evaluated for addition of a CS lead and AVJ ablation
Abnormal troponin, non-ischemic myocardial injury in the setting of tachyarrhythmia
- Peak on admission, 0.039, trended down
- Chest pain free
Chronic hypotension, on midodrine
Medtronic PPM, last device check 07/01/2023 with 3 atrial fibrillation episodes, max lasting 5 minutes, normal lead function
Mitral stenosis, moderate, stable
COPD with chronic hypoxemic respiratory failure, on 5 LPM continuously
Remote Stroke, without residual deficit
Prior Breast cancer s/p lumpectomy, XRT, & chemotherapy
Obesity, BMI 40, she would benefit from weight loss
Lymphedema
Physical Exam
Vital Signs/Labs
Vital Signs
Temp Pulse Resp BP Pulse Ox
98.1 F 72 20 99/84 94
08/05/23 08:25 08/05/23 09:15 08/05/23 08:25 08/05/23 09:15 08/05/23 08:25
08/04/23 08/05/23 08/06/23
06:59 06:59 06:59
Actual Weight 122.215 kg 121.648 kg
08/05/23 06:30
08/05/23 06:30
Magnesium 1.9 mg/dl (1.6-2.3) 08/05/23 06:30
Digoxin 0.8 ng/ml (0.8-2.0) 08/04/23 05:52
08/02/23
18:10
Psg-C-Befisosdeck Pept [id number]
LAB Results
08/02/23 08/03/23 08/03/23
23:33 06:43 11:39
Troponin I 0.039 H* 0.029 D 0.027
Physical Exam
Constitutional: No acute distress and Comfortable
EENT: Moist mucous membranes
Cardiovascular: Rhythm & rate is regular, Pedal edema is absent, JVD pressure is normal and Systolic murmur present
Respiratory: Respiratory effort normal, Lungs clear to auscul. and Wheeze Absent
GI: Soft, Distention absent and Flat
Neuro/Psych: AO x 3
Data Reviewed
-
Date of Service: August 05, 2023
EKG: Other (tele: AV paced 70)
Labs: Labs Reviewed by me
[2023-08-05] MEDS: LANOXIN 250 MCG PO (12:28)
--- NOTE | 2023-08-05 12:48 | W.PN.HOSP.TC ---
Today's Communication/Plan
-
po lasix
dc ready
cm aware - pending placement
Assessment / Plan
Assessment / Plan
Physical Exam
General: Well Developed, Well Nourished, No Apparent Distress and Comfortable
HEENT: Normocephalic, Anicteric and Moist Mucous Membranes
Respiratory: Crackles
Cardiac: S1/S2 and Regular Rhythm
Breast: Deferred by me
GI: Soft, Non Tender, Non Distended and Normal Bowel Sounds
Rectal: Deferred by Provider
Genito-urinary: No Costovertebral Tender
Musculoskeletal: No Clubbing and No Cyanosis
Skin: Warm and Dry
Neuro: AO x 3
Hematologic/Lymphatic: No Lymphadenopathy
Psych: Calm
A/P:� Patient is a 68y F with PMH significant for paroxysmal A-Fib, CHFpEF and obesity who presents to ED for evaluation of generalized weakness and fatigue.
Generalized Weakness / Fatigue
�- Suspect that symptoms are largely secondary to deconditioning / recent hospitalizations, arrhythmias
�- PT / OT evals in AM - pending placement to rehab
�- Patient would likely benefit from SNF prior to discharge home and she seems in agreement.
�- Wheelchair-bound at baseline.
Acute on Chronic HFrEF
�- BNP much more elevated compared to prior.
�- Lasix via IV - transition to PO 80 mg lasix daily
�- Follow I/Os, daily weights, etc.
�- Continue other CV med regimen.
-F/u Cards recs
-Continue aldactone; she did not have coverage for SGLTi
Paroxysmal Atrial Fibrillation
Had tachycardia mediated cardiomyopathy during recent visit and ? recurrence of this.
�- Appears to be in sinus rhythm at present; however, reports episodes of palpitations over the past 3 days.
�- may be related to compliance issues
- F/u Dig levels: .8
-Reduce Metoprolol dosing
-Cont dig
-Continue Tikosyn
- PPM interrogated
- monitor Tele
�- Continue current CV medications for now - including Tikosyn, etc.
�- Continue Eliquis for stroke risk reduction.
#Asymptomatic Bacteruria
--urine cultures negative
-stop abx
Abnormal troponin, non-ischemic myocardial injury
-2/2 to arrhythmias
-no chest pain
-cards on board
COPD without Acute Exacerbation
RAMY Suspect
Nocturnal Hypoxemia
Chronic Hypoxemic Respiratory Failure
Chronic Pulmonary Nodules
�- Patient stable on 3-5 lpm which she was discharged on.
�- lasix
�- Nebs, supplemental O2, etc.
�- Patient should follow-up as an outpatient to complete formal PSG and arrange outpatient PAP therapy.
Hypotension
�- Stable.� Continue midodrine to prevent symptomatic hypotension / to allow effective diuresis.
�- Follow for changes in BP.
Morbid Obesity secondary to excess calories and immobility
�- Affects all aspects of care.
�- Encourage healthy diet.
�- Sufficient increase in exercise not likely to be possible in this patient chronically wheelchair confined.
Hyponatremia
-ctm
DVT Prophylaxis:� On Eliquis
Code Status:� DNR
DC ready; CM aware - pending placement
Anticipated Discharge: Within 24 hours
Subjective/Interval History
-
Date of Service: August 05, 2023
on acute events overnight
Objective Data
-
Labs:
Laboratory Results
08/05/23
06:30
WBC 7.2
Hgb 12.2
Hct 40.1
Plt Count 368
Sodium 135
Potassium 4.1
Chloride 98
Carbon Dioxide 28
BUN 15
Creatinine 0.6
Glucose 101 H
Calcium 8.7
Vital Signs:
Vital Signs
Temp Pulse Resp BP Pulse Ox
98.1 F 71 18 101/59 91
03/28/24 11:31 08/05/23 12:28 08/05/23 11:31 08/05/23 11:31 08/05/23 11:31
I&O
08/04/23 08/05/23 08/06/23
06:59 06:59 06:59
Intake Total 720 / 720 720 / 720
Balance 720 / 720 720 / 720
Review of Systems
-
History Source: Patient
All other systems: Not reviewed unless documented
Physical Exam
-
General: No Apparent Distress
HEENT: Normocephalic and Atraumatic
Respiratory: Clear to Auscultation; Negative Wheezes
Cardiac: Regular Rhythm and S1/S2
GI: Soft
Musculoskeletal: No Clubbing and No Cyanosis
Skin: Warm
Neuro: Awake, Alert, Oriented and AO x 3
Data Reviewed
-
Diagnostic Radiology: Image personally visualized and interpreted and Report Reviewed by me
Labs: Labs Reviewed by me
--- NOTE | 2023-08-05 12:55 | CM ---
Patient seen bedside, discussed accepting SNF including [facility] and [facility], patient agreeable to [facility]. CM will fax clinicals to patients insurance pending updated PT/OT evaluations. CM will continue to follow for discharge
planning needs.
Plan; [facility] SNF, will need auth, need updated PT/OT evals to fax clinicals for auth.
[2023-08-05] MEDS: SINGULAIR 10 MG PO (18:02)
--- NOTE | 2023-08-05 18:33 | PTCARENOTE ---
Patient weaned from 5L NC to 3L NC. Patient pulse ox on 3L NC 91%.
[2023-08-05] MEDS: CRESTOR 20 MG PO (20:11)
[2023-08-05] MEDS: ROBITUSSIN 200 MG PO (21:15)
[2023-08-06] VITALS (7 sets, daily range): BP systolic 80–134; BP diastolic 52–79; PULSE 71–76; O2SAT 88; BMI 39.7
[2023-08-06 06:18] LABS: Hematocrit 37.9 % (37.0-47.0); Hemoglobin 11.8 g/dL (12.0-16.0); Mean Corp Hgb Conc. 31.1 g/dL (33.0-37.0); Mean Corpuscular Hgb 30.7 pg (27.0-31.0); Mean Corpuscular Volume 98.7 fL (81.0-99.0); Mean Platelet Volume 9.5 fL (7.4-10.4); Platelet Count 344 10^3/uL (130-400); Red Blood Cell Count 3.84 10^6/uL (4.20-5.40); Red Cell Dist. Width 16.1 % (11.5-14.5); White Blood Cell Count 7.3 10^3/uL (4.8-10.8)
[2023-08-06 06:43] LABS: Blood Urea Nitrogen 15 mg/dl (7-17); Calcium 8.7 mg/dl (8.4-10.2); Carbon Dioxide 30 mmol/L (22-30); Chloride 101 mmol/L (98-107); Estimated Creatinine Clearance 103 ml/min; Glucose 94 mg/dl (70-99); Potassium 4.3 mmol/L (3.5-5.1); Sodium 132 mmol/L (135-145); eGFR > 60.00
[2023-08-06] MEDS: DUONEB 3 ML INH ×4 (07:13→20:02)
[2023-08-06] MEDS: TOPROL XL PO (08:52)
[2023-08-06] MEDS: DESENEX/MITRAZOL/ZEASORB 1 APPLIC TOPICAL ×2 (08:55→20:30)
[2023-08-06] MEDS: PROTONIX 40 MG PO (08:56)
[2023-08-06] MEDS: ELIQUIS 5 MG PO ×2 (08:56→20:30)
[2023-08-06] MEDS: KCL 40 MEQ PO (08:56)
[2023-08-06] MEDS: ProAmatine 10 MG PO ×2 (08:56→17:59)
--- NOTE | 2023-08-06 09:16 | W.HF.CON ---
Heart Failure
- LV Function
Left ventricular function study result: LV Ejection fraction >40% (ECHO 07/26/23)
Ejection Fraction Percentage: 50-55
- ARNI
Patient already on ARNI: No
Heart Failure ARNI Not Indicated: LV Ejection Fraction >/= 40%
- ACEI/ARB
Patient already on ACEI/ARB: No
Heart Failure ACEI/ARB Not Indicated: LV Ejection Fraction > 40%
- Beta Víctor
Patient already on Evidence Based Beta Víctor: Yes
- Mineralocorticord Receptor Antagonist
Patient already on MRA: Yes
- SGLT-2 Inhibitor
Patient already on SGLT-2 Inhibitor: No
Heart Failure SGLT-2 Inhibitor Not Indicated: LV Ejection Fraction >40%
- Afib Anticoagulation
Patient already on Anticoagulation for Afib: Yes
- NYHA CHF Classification
NYHA CHF Classification Level: Class III - Symptoms w/ min exertion, interferes w/ nml daily activity
- ACC/AHA Stage
ACC/AHA Stage: Stage C: Symptomatic Heart Failure
[2023-08-06] MEDS: LASIX 80 MG PO (10:16)
[2023-08-06] MEDS: ALDACTONE 25 MG PO (10:17)
--- NOTE | 2023-08-06 11:15 | CM ---
CM faxed clinicals to [facility] [phone], pending ref #[id number]. CM spoke with Alicia from [facility], if auth is approved over weekend, able to accept patient. CM will continue to follow for discharge planning needs.
Plan; [facility] SNF pending auth status, call [phone] for updates on pending status.
[2023-08-06] MEDS: LANOXIN 250 MCG PO (11:36)
[2023-08-06] MEDS: TIKOSYN 500 MCG PO ×2 (11:36→22:53)
--- NOTE | 2023-08-06 11:45 | W.PN.CD ---
Today's Communication / Plan
-
stable for discharge on current regimen
we will arrange for follow up with us
please call us with additional questions
Impression / Plan
-
BACKGROUND: 68F with persistent atrial fibrillation on Eliquis, s/p PVI 09/22/22, repeat PVI and AT/Afl ablation 02/2023, with recurrence and now on Tikosyn, then MDT dual chamber PPM, chronic HFpEF, moderate mitral stenosis, mild , 1st degree AVB,
IVCD, HTN, abnormal EKG, CVA in 1988, left breast cancer 2010 s/p chemo, surgery, and radiation, chronic PIERCE, morbid obesity, and lymphedema who presented with weakness
Telecommunications Administrator: Dr. Montes
Abnormal UA, per primary
Weakness, suspected to be related to deconditioning, per primary
-likely needs rehab after this hospitalization
HFpEF, acute on chronic, improved s/p IV lasix
- Echo 07/20/23 showed LVEF of 30%, recovered to 50% 07/26/23
- Normal cors in 2022
- Lowest documented weight, dry weight will need to be adjusted: 122kg
- stable on lasix 80mg PO daily
- continue aldactone; she did not have coverage for SGLTi
Atrial arrhythmias: SVT, AT, atrial fibrillation
- SVT on admission
- Oral Anticoagulation: Apixaban 5mg BID
- [id number]: score at least 5 (Heart failure, prior Stroke/TIA, age 65-74, female gender)
- AAIR�DDDR from 60-110bpm last admission
- Continue Tikosyn 500 mcg twice daily
- Decreased BB with continued hypotension.�Metoprolol now at to 37.5 mg BID
- On digoxin 250 mcg QD, check dig level given weakness: 0.8
- EP records reviewed: Given patient's extensive scarring of the right and left atria, being evaluated for addition of a CS lead and AVJ ablation
Abnormal troponin, non-ischemic myocardial injury in the setting of tachyarrhythmia
- Peak on admission, 0.039, trended down
- Chest pain free
Chronic hypotension, on midodrine
Medtronic PPM, last device check 07/01/2023 with 3 atrial fibrillation episodes, max lasting 5 minutes, normal lead function
Mitral stenosis, moderate, stable
COPD with chronic hypoxemic respiratory failure, on 5 LPM continuously
Remote Stroke, without residual deficit
Prior Breast cancer s/p lumpectomy, XRT, & chemotherapy
Obesity, BMI 40, she would benefit from weight loss
Lymphedema
Physical Exam
Vital Signs/Labs
Vital Signs
Temp Pulse Resp BP Pulse Ox
98.5 F 71 16 119/80 96
08/06/23 07:51 08/06/23 11:36 08/06/23 11:14 08/06/23 10:16 08/06/23 11:14
08/05/23 08/06/23 08/07/23
06:59 06:59 06:59
Actual Weight 121.648 kg 118.416 kg
08/06/23 05:40
08/06/23 05:39
Magnesium 1.9 mg/dl (1.6-2.3) 08/05/23 06:30
Digoxin 0.8 ng/ml (0.8-2.0) 08/04/23 05:52
08/02/23
18:10
[id number]-Jdzweehfbsb Pept [id number]
LAB Results
08/03/23
11:39
Troponin I 0.027
Physical Exam
Constitutional: No acute distress and Comfortable
EENT: Moist mucous membranes
Cardiovascular: Rhythm & rate is regular, Pedal edema is absent, JVD pressure is normal and Systolic murmur present
Respiratory: Respiratory effort normal and Lungs clear to auscul.
GI: Soft and Distention absent
Neuro/Psych: AO x 3
Data Reviewed
-
Date of Service: August 06, 2023
EKG: Other (Tele: Ap 70)
--- NOTE | 2023-08-06 12:48 | W.PN.HOSP.TC ---
Today's Communication/Plan
-
PO lasix
sudafed
aldactone
PSG outpatient
Assessment / Plan
Assessment / Plan
Physical Exam
General: Well Developed, Well Nourished, No Apparent Distress and Comfortable
HEENT: Normocephalic, Anicteric and Moist Mucous Membranes
Respiratory: Crackles
Cardiac: S1/S2 and Regular Rhythm
Breast: Deferred by me
GI: Soft, Non Tender, Non Distended and Normal Bowel Sounds
Rectal: Deferred by Provider
Genito-urinary: No Costovertebral Tender
Musculoskeletal: No Clubbing and No Cyanosis
Skin: Warm and Dry
Neuro: AO x 3
Hematologic/Lymphatic: No Lymphadenopathy
Psych: Calm
A/P:� Patient is a 68y F with PMH significant for paroxysmal A-Fib, CHFpEF and obesity who presents to ED for evaluation of generalized weakness and fatigue.
Generalized Weakness / Fatigue
�- Suspect that symptoms are largely secondary to deconditioning / recent hospitalizations, arrhythmias
�- PT / OT evals in AM - pending placement to rehab
�- Patient would likely benefit from SNF prior to discharge home and she seems in agreement.
�- Wheelchair-bound at baseline.
Acute on Chronic HFrEF
�- BNP much more elevated compared to prior.
�- Lasix via IV - transition to PO 80 mg lasix daily
�- Follow I/Os, daily weights, etc.
�- Continue other CV med regimen.
-F/u Cards recs
-Continue aldactone; she did not have coverage for SGLTi
Paroxysmal Atrial Fibrillation
Had tachycardia mediated cardiomyopathy during recent visit and ? recurrence of this.
�- Appears to be in sinus rhythm at present; however, reports episodes of palpitations over the past 3 days.
�- may be related to compliance issues
- F/u Dig levels: .8
-Reduce Metoprolol dosing
-Cont dig
-Continue Tikosyn
- PPM interrogated
- monitor Tele
�- Continue current CV medications for now - including Tikosyn, etc.
�- Continue Eliquis for stroke risk reduction.
#Congestion, Intermittent Ear fullness
-trial Sudafed
-no ear pain
#Asymptomatic Bacteruria
--urine cultures negative
-stop abx
Abnormal troponin, non-ischemic myocardial injury
-2/2 to arrhythmias
-no chest pain
-cards on board
COPD without Acute Exacerbation
RAMY Suspect
Nocturnal Hypoxemia
Chronic Hypoxemic Respiratory Failure
Chronic Pulmonary Nodules
�- Patient stable on 3-5 lpm which she was discharged on.
�- lasix
�- Nebs, supplemental O2, etc.
�- Patient should follow-up as an outpatient to complete formal PSG and arrange outpatient PAP therapy.
Hypotension
�- Stable.� Continue midodrine to prevent symptomatic hypotension / to allow effective diuresis.
�- Follow for changes in BP.
Morbid Obesity secondary to excess calories and immobility
�- Affects all aspects of care.
�- Encourage healthy diet.
�- Sufficient increase in exercise not likely to be possible in this patient chronically wheelchair confined.
Hyponatremia
-ctm
DVT Prophylaxis:� On Eliquis
Code Status:� DNR
More than 30 minutes spent in discharge including
Final examination of the patient
Summarizing hospital stay
Instructions for continuing care to all relevant caregivers
Preparation of discharge records, prescriptions, and referral forms
Total time spent (35 in minutes):
Anticipated Discharge: Today
Subjective/Interval History
-
Date of Service: August 06, 2023
no acute evnets; has some ear fullness on and off
Objective Data
-
Labs:
Laboratory Results
08/06/23 08/06/23
05:39 05:40
WBC 7.3
Hgb 11.8 L
Hct 37.9
Plt Count 344
Sodium 132 L
Potassium 4.3
Chloride 101
Carbon Dioxide 30
BUN 15
Creatinine 0.7
Glucose 94
Calcium 8.7
Vital Signs:
Vital Signs
Temp Pulse Resp BP Pulse Ox
98.2 F 70 20 102/61 92
08/06/23 11:50 08/06/23 11:50 08/06/23 11:50 08/06/23 11:50 08/06/23 11:50
I&O
08/05/23 08/06/23 08/07/23
06:59 06:59 06:59
Intake Total 720 / 720 840 / 840
Balance 720 / 720 840 / 840
Review of Systems
-
History Source: Patient
All other systems: Not reviewed unless documented
Physical Exam
-
General: No Apparent Distress
HEENT: Normocephalic and Atraumatic
Respiratory: Clear to Auscultation; Negative Wheezes
Cardiac: Regular Rhythm and S1/S2
GI: Soft
Musculoskeletal: No Clubbing and No Cyanosis
Skin: Warm
Neuro: Awake, Alert, Oriented and AO x 3
Data Reviewed
-
Diagnostic Radiology: Image personally visualized and interpreted and Report Reviewed by me
Medical Tests (Nuc Med, Echo etc): Image personally visualized and interpreted
Labs: Labs Reviewed by me
[2023-08-06] MEDS: SINGULAIR 10 MG PO (18:00)
[2023-08-06] MEDS: CRESTOR 20 MG PO (20:30)
[2023-08-06] MEDS: ROBITUSSIN 200 MG PO (20:33)
[2023-08-07 03:50] VITALS: BP 131/66
[2023-08-07 06:00] VITALS: BMI 40.5
[2023-08-07 07:55] VITALS: BP 98/62
[2023-08-07 08:21] LABS: Hematocrit 38.6 % (37.0-47.0); Hemoglobin 12.2 g/dL (12.0-16.0); Mean Corp Hgb Conc. 31.6 g/dL (33.0-37.0); Mean Platelet Volume 9.6 fL (7.4-10.4); Platelet Count 332 10^3/uL (130-400); Red Blood Cell Count 3.94 10^6/uL (4.20-5.40); Red Cell Dist. Width 15.8 % (11.5-14.5)
[2023-08-07] MEDS: DESENEX/MITRAZOL/ZEASORB 1 APPLIC TOPICAL ×2 (09:43→21:54)
[2023-08-07] MEDS: ELIQUIS 5 MG PO ×2 (09:44→21:55)
[2023-08-07] MEDS: PROTONIX 40 MG PO (09:46)
[2023-08-07] MEDS: KCL 40 MEQ PO (09:46)
[2023-08-07] MEDS: ProAmatine 10 MG PO (09:47)
[2023-08-07] MEDS: LASIX 80 MG PO (09:47)
[2023-08-07] MEDS: ALDACTONE 25 MG PO (09:47)
[2023-08-07] MEDS: TOPROL XL 37.5 MG PO (09:48)
[2023-08-07] MEDS: FLUSH (NSS) 1 FLUSH IV (09:49)
[2023-08-07] MEDS: SUDAFED 60 MG PO ×2 (09:49→23:03)
--- NOTE | 2023-08-07 10:57 | CM ---
Plan: Discharge to [facility] pending authorization status
Contacted [facility] for Auth status @ [phone]; and was told that Clinical information was received and is still in review
Auth for still pending; will follow up tomorrow
[2023-08-07 11:25] VITALS: BP 102/67; BP 98/64; PULSE 73; PULSE 75
[2023-08-07] MEDS: TIKOSYN 500 MCG PO ×2 (12:07→21:55)
[2023-08-07] MEDS: LANOXIN 250 MCG PO (12:08)
[2023-08-07] MEDS: SENOKOT-S 1 TABLET PO ×2 (12:08→21:55)
--- NOTE | 2023-08-07 14:33 | W.PN.HOSP.TC ---
Today's Communication/Plan
-
pending placement
Assessment / Plan
Assessment / Plan
Physical Exam
General: Well Developed, Well Nourished, No Apparent Distress and Comfortable
HEENT: Normocephalic, Anicteric and Moist Mucous Membranes
Respiratory: Crackles
Cardiac: S1/S2 and Regular Rhythm
Breast: Deferred by me
GI: Soft, Non Tender, Non Distended and Normal Bowel Sounds
Rectal: Deferred by Provider
Genito-urinary: No Costovertebral Tender
Musculoskeletal: No Clubbing and No Cyanosis
Skin: Warm and Dry
Neuro: AO x 3
Hematologic/Lymphatic: No Lymphadenopathy
Psych: Calm
A/P:� Patient is a 68y F with PMH significant for paroxysmal A-Fib, CHFpEF and obesity who presents to ED for evaluation of generalized weakness and fatigue.
Generalized Weakness / Fatigue
�- Suspect that symptoms are largely secondary to deconditioning / recent hospitalizations, arrhythmias
�- PT / OT evals in AM - pending placement to rehab
�- Patient would likely benefit from SNF prior to discharge home and she seems in agreement.
�- Wheelchair-bound at baseline.
Acute on Chronic HFrEF
�- BNP much more elevated compared to prior.
�- Lasix via IV - transition to PO 80 mg lasix daily
�- Follow I/Os, daily weights, etc.
�- Continue other CV med regimen.
-F/u Cards recs
-Continue aldactone; she did not have coverage for SGLTi
Paroxysmal Atrial Fibrillation
Had tachycardia mediated cardiomyopathy during recent visit and ? recurrence of this.
�- Appears to be in sinus rhythm at present; however, reports episodes of palpitations over the past 3 days.
�- may be related to compliance issues
- F/u Dig levels: .8
-Reduce Metoprolol dosing
-Cont dig
-Continue Tikosyn
- PPM interrogated
- monitor Tele
�- Continue current CV medications for now - including Tikosyn, etc.
�- Continue Eliquis for stroke risk reduction.
#Congestion, Intermittent Ear fullness
-trial Sudafed
-no ear pain
#Asymptomatic Bacteruria
--urine cultures negative
-stop abx
Abnormal troponin, non-ischemic myocardial injury
-2/2 to arrhythmias
-no chest pain
-cards on board
COPD without Acute Exacerbation
RAMY Suspect
Nocturnal Hypoxemia
Chronic Hypoxemic Respiratory Failure
Chronic Pulmonary Nodules
�- Patient stable on 3-5 lpm which she was discharged on.
�- lasix
�- Nebs, supplemental O2, etc.
�- Patient should follow-up as an outpatient to complete formal PSG and arrange outpatient PAP therapy.
Hypotension
�- Stable.� Continue midodrine to prevent symptomatic hypotension / to allow effective diuresis.
�- Follow for changes in BP.
Morbid Obesity secondary to excess calories and immobility
�- Affects all aspects of care.
�- Encourage healthy diet.
�- Sufficient increase in exercise not likely to be possible in this patient chronically wheelchair confined.
Hyponatremia
-ctm
DVT Prophylaxis:� On Eliquis
Code Status:� DNR
DC ready - pending placement
Anticipated Discharge: > 48 hours
Subjective/Interval History
-
Date of Service: August 07, 2023
no acute events
Objective Data
-
Labs:
Laboratory Results
08/07/23
07:50
WBC 7.0
Hgb 12.2
Hct 38.6
Plt Count 332
Vital Signs:
Vital Signs
Temp Pulse Resp BP Pulse Ox
98.6 F 73 20 102/67 94
08/07/23 11:25 08/07/23 12:08 08/07/23 11:25 08/07/23 11:25 08/07/23 11:25
I&O
08/06/23 08/07/23 08/08/23
06:59 06:59 06:59
Intake Total 840 / 840 1140 / 1140
Balance 840 / 840 1140 / 1140
Review of Systems
-
History Source: Patient
All other systems: Not reviewed unless documented
Physical Exam
-
General: No Apparent Distress
HEENT: Normocephalic and Atraumatic
Respiratory: Clear to Auscultation; Negative Wheezes
Cardiac: Regular Rhythm and S1/S2
GI: Soft
Musculoskeletal: No Clubbing and No Cyanosis
Skin: Warm
Neuro: Awake, Alert, Oriented and AO x 3
Data Reviewed
-
Diagnostic Radiology: Image personally visualized and interpreted and Report Reviewed by me
Medical Tests (Nuc Med, Echo etc): Image personally visualized and interpreted
Labs: Labs Reviewed by me
[2023-08-07 15:00] VITALS: BP 116/77
[2023-08-07] MEDS: ProAmatine PO (17:39)
[2023-08-07] MEDS: SINGULAIR 10 MG PO (17:39)
[2023-08-07 19:50] VITALS: BP 113/81; BP 119/77; PULSE 71
[2023-08-07] MEDS: CRESTOR 20 MG PO (21:55)
[2023-08-07 23:55] VITALS: BP 96/65
[2023-08-08] VITALS (8 sets, daily range): BP systolic 96–130; BP diastolic 56–83; PULSE 71–72; BMI 40.7
[2023-08-08 08:24] LABS: Hematocrit 40.4 % (37.0-47.0); Hemoglobin 12.4 g/dL (12.0-16.0); Mean Corp Hgb Conc. 30.7 g/dL (33.0-37.0); Mean Corpuscular Hgb 30.3 pg (27.0-31.0); Mean Corpuscular Volume 98.8 fL (81.0-99.0); Mean Platelet Volume 9.8 fL (7.4-10.4); Platelet Count 351 10^3/uL (130-400); Red Blood Cell Count 4.09 10^6/uL (4.20-5.40)
[2023-08-08 08:30] LABS: Blood Urea Nitrogen 12 mg/dl (7-17); Calcium 9.1 mg/dl (8.4-10.2); Carbon Dioxide 32 mmol/L (22-30); Chloride 96 mmol/L (98-107); Estimated Creatinine Clearance 121 ml/min; Glucose 97 mg/dl (70-99); Potassium 4.1 mmol/L (3.5-5.1); Sodium 133 mmol/L (135-145); eGFR > 60.00
[2023-08-08] MEDS: ALDACTONE 25 MG PO (10:02)
[2023-08-08] MEDS: KCL 40 MEQ PO (10:02)
[2023-08-08] MEDS: LASIX 80 MG PO (10:02)
[2023-08-08] MEDS: ELIQUIS 5 MG PO ×2 (10:02→22:50)
[2023-08-08] MEDS: SENOKOT-S 1 TABLET PO (10:03)
[2023-08-08] MEDS: PROTONIX 40 MG PO (10:03)
[2023-08-08] MEDS: TOPROL XL 37.5 MG PO (10:03)
[2023-08-08] MEDS: ProAmatine 10 MG PO (10:03)
[2023-08-08] MEDS: FLUSH (NSS) 1 FLUSH IV (10:04)
[2023-08-08] MEDS: DESENEX/MITRAZOL/ZEASORB 1 APPLIC TOPICAL ×2 (10:06→22:47)
[2023-08-08] MEDS: LANOXIN 250 MCG PO (12:10)
[2023-08-08] MEDS: TIKOSYN 500 MCG PO ×2 (12:11→22:52)
[2023-08-08] MEDS: SUDAFED 60 MG PO (12:11)
--- NOTE | 2023-08-08 13:47 | W.PN.HOSP.TC ---
Today's Communication/Plan
-
pending placement
Assessment / Plan
Assessment / Plan
Physical Exam
General: Well Developed, Well Nourished, No Apparent Distress and Comfortable
HEENT: Normocephalic, Anicteric and Moist Mucous Membranes
Respiratory: Crackles
Cardiac: S1/S2 and Regular Rhythm
Breast: Deferred by me
GI: Soft, Non Tender, Non Distended and Normal Bowel Sounds
Rectal: Deferred by Provider
Genito-urinary: No Costovertebral Tender
Musculoskeletal: No Clubbing and No Cyanosis
Skin: Warm and Dry
Neuro: AO x 3
Hematologic/Lymphatic: No Lymphadenopathy
Psych: Calm
A/P:� Patient is a 68y F with PMH significant for paroxysmal A-Fib, CHFpEF and obesity who presents to ED for evaluation of generalized weakness and fatigue.
Generalized Weakness / Fatigue
�- Suspect that symptoms are largely secondary to deconditioning / recent hospitalizations, arrhythmias
�- PT / OT evals in AM - pending placement to rehab
�- Patient would likely benefit from SNF prior to discharge home and she seems in agreement.
�- Wheelchair-bound at baseline.
Acute on Chronic HFrEF
�- BNP much more elevated compared to prior.
�- Lasix via IV - transition to PO 80 mg lasix daily
�- Follow I/Os, daily weights, etc.
�- Continue other CV med regimen.
-F/u Cards recs
-Continue aldactone; she did not have coverage for SGLTi
Paroxysmal Atrial Fibrillation
Had tachycardia mediated cardiomyopathy during recent visit and ? recurrence of this.
�- Appears to be in sinus rhythm at present; however, reports episodes of palpitations over the past 3 days.
�- may be related to compliance issues
- F/u Dig levels: .8
-Reduce Metoprolol dosing
-Cont dig
-Continue Tikosyn
- PPM interrogated
- monitor Tele
�- Continue current CV medications for now - including Tikosyn, etc.
�- Continue Eliquis for stroke risk reduction.
#Congestion, Intermittent Ear fullness
-trial Sudafed
-no ear pain
#Asymptomatic Bacteruria
--urine cultures negative
-stop abx
Abnormal troponin, non-ischemic myocardial injury
-2/2 to arrhythmias
-no chest pain
-cards on board
COPD without Acute Exacerbation
RAMY Suspect
Nocturnal Hypoxemia
Chronic Hypoxemic Respiratory Failure
Chronic Pulmonary Nodules
�- Patient stable on 3-5 lpm which she was discharged on.
�- lasix
�- Nebs, supplemental O2, etc.
�- Patient should follow-up as an outpatient to complete formal PSG and arrange outpatient PAP therapy.
Hypotension
�- Stable.� Continue midodrine to prevent symptomatic hypotension / to allow effective diuresis.
�- Follow for changes in BP.
Morbid Obesity secondary to excess calories and immobility
�- Affects all aspects of care.
�- Encourage healthy diet.
�- Sufficient increase in exercise not likely to be possible in this patient chronically wheelchair confined.
Hyponatremia
-ctm
DVT Prophylaxis:� On Eliquis
Code Status:� DNR
DC ready - pending placement
Anticipated Discharge: Within 24 hours
Subjective/Interval History
-
Date of Service: August 08, 2023
No acute events
Objective Data
-
Labs:
Laboratory Results
08/08/23
07:35
WBC 7.0
Hgb 12.4
Hct 40.4
Plt Count 351
Sodium 133 L
Potassium 4.1
Chloride 96 L
Carbon Dioxide 32 H
BUN 12
Creatinine 0.6
Glucose 97
Calcium 9.1
Vital Signs:
Vital Signs
Temp Pulse Resp BP Pulse Ox
98.0 F 72 20 102/67 93
08/08/23 11:40 08/08/23 12:45 08/08/23 11:40 08/08/23 12:45 08/08/23 11:40
I&O
08/07/23 08/08/23 08/09/23
06:59 06:59 06:59
Intake Total 1140 / 1140 1200 / 1200
Balance 1140 / 1140 1200 / 1200
Review of Systems
-
History Source: Patient
All other systems: Not reviewed unless documented
Data Reviewed
-
Diagnostic Radiology: Image personally visualized and interpreted and Report Reviewed by me
Medical Tests (Nuc Med, Echo etc): Image personally visualized and interpreted
Labs: Labs Reviewed by me
[2023-08-08] MEDS: ROBITUSSIN 200 MG PO (17:47)
[2023-08-08] MEDS: SINGULAIR 10 MG PO (17:48)
[2023-08-08] MEDS: ProAmatine PO (17:48)
[2023-08-08] MEDS: SENOKOT-S PO (22:49)
[2023-08-08] MEDS: CRESTOR 20 MG PO (22:49)
[2023-08-09] VITALS (8 sets, daily range): BP systolic 92–109; BP diastolic 42–71; PULSE 70–71; O2SAT 93; BMI 40.3
--- NOTE | 2023-08-09 08:17 | CM ---
Addendum entered by Chayo Reno 08/09/23 12:13:
CM called [facility] to check status of auth, CM informed additional clinicals were received and auth is still under review.
Original Note:
CM called to check status of authorization, informed clinicals are still under review. CM reports clinicals were faxed on Wednesday and inquiring when the status will be determined, per insurance, instructed CM to call back later to check status. CM
will continue to follow for discharge planning needs.
Plan; [facility] pending auth, still pending.
[2023-08-09 09:30] LABS: Blood Urea Nitrogen 13 mg/dl (7-17); Carbon Dioxide 31 mmol/L (22-30); Chloride 96 mmol/L (98-107); Estimated Creatinine Clearance 104 ml/min; Glucose 100 mg/dl (70-99); Sodium 133 mmol/L (135-145); eGFR > 60.00
[2023-08-09] MEDS: ProAmatine 10 MG PO ×2 (09:39→17:43)
[2023-08-09] MEDS: LASIX 80 MG PO (09:39)
[2023-08-09] MEDS: ALDACTONE 25 MG PO (09:40)
[2023-08-09] MEDS: PROTONIX 40 MG PO (09:40)
[2023-08-09] MEDS: KCL 40 MEQ PO (09:40)
[2023-08-09] MEDS: ELIQUIS 5 MG PO ×2 (09:40→21:09)
[2023-08-09] MEDS: DESENEX/MITRAZOL/ZEASORB 1 APPLIC TOPICAL ×2 (09:41→21:08)
[2023-08-09] MEDS: TOPROL XL 37.5 MG PO (09:41)
[2023-08-09] MEDS: SENOKOT-S PO ×2 (09:42→21:09)
[2023-08-09] MEDS: LANOXIN 250 MCG PO (11:57)
[2023-08-09] MEDS: TIKOSYN 500 MCG PO (11:57)
--- NOTE | 2023-08-09 13:35 | W.PN.HOSP.TC ---
Today's Communication/Plan
-
pending placement
Assessment / Plan
Assessment / Plan
Physical Exam
General: Well Developed, Well Nourished, No Apparent Distress and Comfortable
HEENT: Normocephalic, Anicteric and Moist Mucous Membranes
Respiratory: Crackles
Cardiac: S1/S2 and Regular Rhythm
Breast: Deferred by me
GI: Soft, Non Tender, Non Distended and Normal Bowel Sounds
Rectal: Deferred by Provider
Genito-urinary: No Costovertebral Tender
Musculoskeletal: No Clubbing and No Cyanosis
Skin: Warm and Dry
Neuro: AO x 3
Hematologic/Lymphatic: No Lymphadenopathy
Psych: Calm
A/P:� Patient is a 68y F with PMH significant for paroxysmal A-Fib, CHFpEF and obesity who presents to ED for evaluation of generalized weakness and fatigue.
Generalized Weakness / Fatigue
�- Suspect that symptoms are largely secondary to deconditioning / recent hospitalizations, arrhythmias
�- PT / OT evals - pending placement to rehab
�- Patient would likely benefit from SNF prior to discharge home and she seems in agreement.
�- Wheelchair-bound at baseline.
Acute on Chronic HFrEF
�- BNP much more elevated compared to prior.
�- Lasix via IV - transition to PO 80 mg lasix daily
�- Follow I/Os, daily weights, etc.
�- Continue other CV med regimen.
-F/u Cards recs
-Continue aldactone; she did not have coverage for SGLTi
Paroxysmal Atrial Fibrillation
Had tachycardia mediated cardiomyopathy during recent visit and ? recurrence of this.
�- Appears to be in sinus rhythm at present; however, reports episodes of palpitations over the past 3 days.
�- may be related to compliance issues
- F/u Dig levels: .8
-Reduce Metoprolol dosing
-Cont dig
-Continue Tikosyn
- PPM interrogated
- monitor Tele
�- Continue current CV medications for now - including Tikosyn, etc.
�- Continue Eliquis for stroke risk reduction.
#Congestion, Intermittent Ear fullness
-trial Sudafed
-no ear pain
#Asymptomatic Bacteruria
--urine cultures negative
-stop abx
Abnormal troponin, non-ischemic myocardial injury
-2/2 to arrhythmias
-no chest pain
-cards on board
COPD without Acute Exacerbation
RAMY Suspect
Nocturnal Hypoxemia
Chronic Hypoxemic Respiratory Failure
Chronic Pulmonary Nodules
�- Patient stable on 3-5 lpm which she was discharged on.
�- lasix
�- Nebs, supplemental O2, etc.
�- Patient should follow-up as an outpatient to complete formal PSG and arrange outpatient PAP therapy.
Hypotension
�- Stable.� Continue midodrine to prevent symptomatic hypotension / to allow effective diuresis.
�- Follow for changes in BP.
Morbid Obesity secondary to excess calories and immobility
�- Affects all aspects of care.
�- Encourage healthy diet.
�- Sufficient increase in exercise not likely to be possible in this patient chronically wheelchair confined.
Hyponatremia
-ctm
DVT Prophylaxis:� On Eliquis
Code Status:� DNR
DC ready - pending placement
Anticipated Discharge: Within 24 hours
Subjective/Interval History
-
Date of Service: August 09, 2023
no acute events
Objective Data
-
Labs:
Laboratory Results
08/09/23
08:08
Sodium 133 L
Potassium 4.0
Chloride 96 L
Carbon Dioxide 31 H
BUN 13
Creatinine 0.7
Glucose 100 H
Calcium 9.0
Vital Signs:
Vital Signs
Temp Pulse Resp BP Pulse Ox
98 F 70 18 94/52 94
08/09/23 11:35 08/09/23 11:57 08/09/23 11:35 08/09/23 09:41 08/09/23 11:35
I&O
08/08/23 08/09/23 08/10/23
06:59 06:59 06:59
Intake Total 1200 / 1200 540 / 540
Output Total 100 / 100
Balance 1200 / 1200 440 / 440
Review of Systems
-
History Source: Patient
All other systems: Not reviewed unless documented
Physical Exam
-
General: No Apparent Distress
HEENT: Normocephalic and Atraumatic
Respiratory: Clear to Auscultation; Negative Wheezes
Cardiac: Regular Rhythm and S1/S2
GI: Soft
Musculoskeletal: No Clubbing and No Cyanosis
Skin: Warm
Neuro: Awake, Alert, Oriented and AO x 3
Data Reviewed
-
Diagnostic Radiology: Image personally visualized and interpreted and Report Reviewed by me
Medical Tests (Nuc Med, Echo etc): Image personally visualized and interpreted
Labs: Labs Reviewed by me
--- NOTE | 2023-08-09 14:31 | W.PN.CD ---
Today's Communication / Plan
-
Stop dofetilide
Stop digoxin
Impression / Plan
-
BACKGROUND: 68F with persistent atrial fibrillation on Eliquis, s/p PVI 09/22/22, repeat PVI and AT/Afl ablation 02/2023, with recurrence and now on Tikosyn, then MDT dual chamber PPM, chronic HFpEF, moderate mitral stenosis, mild , 1st degree AVB,
IVCD, HTN, abnormal EKG, CVA in 1988, left breast cancer 2010 s/p chemo, surgery, and radiation, chronic PIERCE, morbid obesity, and lymphedema who presented with weakness
Bilingual Manager: Dr. Montes
Weakness, suspected to be related to deconditioning, per primary -- plan for SNF at [place]
HFpEF, acute on chronic, improved with diuresis
- Echo 07/20/23 showed LVEF of 30%, recovered to 50% 07/26/23
- Normal cors in 2022
- Lowest documented weight, dry weight will need to be adjusted: 121kg
- Stable on furosemide 80mg PO daily
- Continue Aldactone; she did not have coverage for SGLT2
Torsades, by PPM interrogation
- Lasting 2 minutes and 12 seconds on 08/01/23
- Mg 1.8 08/03/23
- Stop dofetilide & digoxin, if atrial arrhythmias recur, SERGER-P and AVJ
Atrial arrhythmias: SVT, AT, atrial fibrillation
- SVT on admission
- Oral Anticoagulation: Apixaban 5mg BID
- [id number]: score at least 5 (Heart failure, prior Stroke/TIA, age 65-74, female gender)
- Decreased BB with hypotension.�Metoprolol now at to 37.5 mg BID
- On digoxin 250 mcg QD, checked dig level given weakness: 0.8, now stopped as above
- EP records reviewed: Given patient's extensive scarring of the right and left atria, being evaluated for addition of a CS lead and AVJ ablation
Abnormal troponin, non-ischemic myocardial injury in the setting of tachyarrhythmia
- Peak on admission, 0.039, trended down
- Chest pain free
Chronic hypotension, on midodrine
Medtronic PPM, last device check 07/01/2023 with 3 atrial fibrillation episodes, max lasting 5 minutes, normal lead function
Mitral stenosis, moderate, stable
COPD with chronic hypoxemic respiratory failure, on 5 LPM continuously
Remote Stroke, without residual deficit
Prior Breast cancer s/p lumpectomy, XRT, & chemotherapy
Obesity, BMI 40, she would benefit from weight loss
Lymphedema
SUBJECTIVE:
Denies CP and shortness of breath
Physical Exam
Vital Signs/Labs
Vital Signs
Temp Pulse Resp BP Pulse Ox
98 F 70 18 94/52 94
08/09/23 11:35 08/09/23 11:57 08/09/23 11:35 08/09/23 09:41 08/09/23 11:35
08/08/23 08/09/23 08/10/23
06:59 06:59 06:59
Actual Weight 121.308 kg 120.344 kg
08/08/23 07:35
08/09/23 08:08
Magnesium 1.9 mg/dl (1.6-2.3) 08/05/23 06:30
Digoxin 0.8 ng/ml (0.8-2.0) 08/04/23 05:52
08/02/23
18:10
[id number] Pept 50114
Physical Exam
Constitutional: No acute distress and Comfortable
EENT: Anicteric and Moist mucous membranes
Cardiovascular: Pedal edema is absent, Rhythm/rate is irregular and S1S2 is normal
Respiratory: Lungs clear to auscul. and Other (diminished)
GI: Soft, Distention absent, Flat, Non tender and Normal bowel sounds
Neuro/Psych: AO x 3
Other: Skin (warm and dry)
Data Reviewed
-
Date of Service: August 09, 2023
Labs: Labs Reviewed by me
Old Records: Reviewed
[2023-08-09] MEDS: SINGULAIR 10 MG PO (17:43)
[2023-08-09] MEDS: CRESTOR 20 MG PO (21:09)
[2023-08-09] MEDS: ROBITUSSIN 200 MG PO (21:12)
[2023-08-10] VITALS (11 sets, daily range): BP systolic 104–124; BP diastolic 55–81; PULSE 74–75; BMI 39.9
[2023-08-10 08:04] LABS: Blood Urea Nitrogen 14 mg/dl (7-17); Carbon Dioxide 29 mmol/L (22-30); Chloride 97 mmol/L (98-107); Estimated Creatinine Clearance 90 ml/min; Glucose 94 mg/dl (70-99); Potassium 3.8 mmol/L (3.5-5.1); Sodium 133 mmol/L (135-145); eGFR > 60.00
--- NOTE | 2023-08-10 08:25 | W.PN.CD ---
Today's Communication / Plan
-
- AVJ today
Impression / Plan
-
BACKGROUND: 68F with persistent atrial fibrillation on Eliquis, s/p PVI 09/22/22, repeat PVI and AT/Afl ablation 02/2023, with recurrence and now on Tikosyn, then MDT dual chamber PPM, chronic HFpEF, moderate mitral stenosis, mild , 1st degree AVB,
IVCD, HTN, abnormal EKG, CVA in 1988, left breast cancer 2010 s/p chemo, surgery, and radiation, chronic PIERCE, morbid obesity, and lymphedema who presented with weakness
[employer] Coordinator: Dr. Montes
Weakness, suspected to be related to deconditioning, per primary -- plan for SNF at [place]
HFpEF, acute on chronic, improved with diuresis
- Echo 07/20/23 showed LVEF of 30%, recovered to 50% 07/26/23
- Normal cors in 2022
- Lowest documented weight, dry weight will need to be adjusted: 121kg
- Stable on furosemide 80mg PO daily
- Continue Aldactone; she did not have coverage for SGLT2
Torsades, by PPM interrogation
- Lasting 2 minutes and 12 seconds on 08/01/23
- Mg 1.8 08/03/23
- Off the dofetilide & digoxin,
- Plan for AVJ today
- Discussed plan with her friend - Elan - food technician at [employer].
Atrial arrhythmias: SVT, AT, atrial fibrillation
- SVT on admission
- Oral Anticoagulation: Apixaban 5mg BID
- [id number]: score at least 5 (Heart failure, prior Stroke/TIA, age 65-74, female gender)
- Decreased BB with hypotension.�Metoprolol now at to 37.5 mg BID
- On digoxin 250 mcg QD, checked dig level given weakness: 0.8, now stopped as above
- EP records reviewed: Given patient's extensive scarring of the right and left atria, being evaluated for addition of a CS lead and AVJ ablation
Abnormal troponin, non-ischemic myocardial injury in the setting of tachyarrhythmia
- Peak on admission, 0.039, trended down
- Chest pain free
Chronic hypotension, on midodrine
[employer]tr[employer] PPM, last device check 07/01/2023 with 3 atrial fibrillation episodes, max lasting 5 minutes, normal lead function
Mitral stenosis, moderate, stable
COPD with chronic hypoxemic respiratory failure, on 5 LPM continuously
Remote Stroke, without residual deficit
Prior Breast cancer s/p lumpectomy, XRT, & chemotherapy
Obesity, BMI 40, she would benefit from weight loss
Lymphedema
SUBJECTIVE:
Denies CP and shortness of breath
Physical Exam
Vital Signs/Labs
Vital Signs
Temp Pulse Resp BP Pulse Ox
98.5 F 71 18 104/55 93
08/10/23 03:19 08/10/23 03:19 08/10/23 03:19 08/10/23 03:19 08/10/23 03:19
08/09/23 08/10/23 08/11/23
06:59 06:59 06:59
Actual Weight 120.344 kg 119.04 kg
08/08/23 07:35
08/10/23 06:15
Magnesium 1.9 mg/dl (1.6-2.3) 08/05/23 06:30
Digoxin 0.8 ng/ml (0.8-2.0) 08/04/23 05:52
08/02/23
18:10
[id number] Pept [id number]
Physical Exam
Constitutional: No acute distress and Comfortable
EENT: Anicteric and Moist mucous membranes
Cardiovascular: Rhythm & rate is regular, JVD present and Systolic murmur present
Respiratory: Respiratory effort normal and Rhonchi Present
GI: Soft, Non tender and Normal bowel sounds
Neuro/Psych: Alert, Oriented and AO x 3
Other: Cardiac Device Site
Data Reviewed
-
Date of Service: August 10, 2023
Medical Decision Making: Reviewed Test Results, Test Interpretation and Review of Case with other Provider
EKG: Tracing Personally Visualized and interpreted
Echo: Report Reviewed by me
X-Ray/CT/US/MRI/NUC/PET: Image Personally Visualized and interpreted
Labs: Labs Reviewed by me
Old Records: Reviewed
--- NOTE | 2023-08-10 08:33 | CM ---
Entry from 08/09/23: CM received call from [employer], auth approved for skilled level 1, auth # [id number], 08/08-08/10, next review 08/10 to Sharonda Álvarez, phone [phone], fax [phone]. CM updated Alicia at [facility] that per Hospitalist,
patient is not clear for discharge at this time. CM will continue to follow for discharge planning needs.
Plan; [facility] SNF when stable.
[2023-08-10] MEDS: ALDACTONE 25 MG PO (08:59)
[2023-08-10] MEDS: SENOKOT-S PO ×2 (08:59→22:14)
[2023-08-10] MEDS: PROTONIX 40 MG PO (08:59)
[2023-08-10] MEDS: ProAmatine 10 MG PO ×2 (08:59→17:23)
[2023-08-10] MEDS: TOPROL XL 37.5 MG PO (08:59)
[2023-08-10] MEDS: DESENEX/MITRAZOL/ZEASORB 1 APPLIC TOPICAL ×2 (09:01→22:14)
--- NOTE | 2023-08-10 12:28 | W.PN.HOSP.TC ---
Today's Communication/Plan
-
see A/P
Assessment / Plan
Assessment / Plan
Physical Exam
General: Well Developed, Well Nourished, No Apparent Distress and Comfortable
HEENT: Normocephalic, Anicteric and Moist Mucous Membranes
Respiratory: Crackles
Cardiac: S1/S2 and Regular Rhythm
Breast: Deferred by me
GI: Soft, Non Tender, Non Distended and Normal Bowel Sounds
Rectal: Deferred by Provider
Genito-urinary: No Costovertebral Tender
Musculoskeletal: No Clubbing and No Cyanosis
Skin: Warm and Dry
Neuro: AO x 3
Hematologic/Lymphatic: No Lymphadenopathy
Psych: Calm
HPI: Patient is a 68y F with PMH significant for paroxysmal A-Fib, CHFpEF and obesity who presented to ED for evaluation of generalized weakness and fatigue.
A/P:�
# Generalized Weakness / Fatigue, Suspect symptoms largely secondary to deconditioning / recent hospitalizations, arrhythmias
Wheelchair-bound at baseline.
PT / OT recc SNF
# Acute on Chronic HFrEF
Echo 07/20/23 showed LVEF of 30%, recovered to 50% 07/26/23
s/p IV Lasix -> PO 80 mg Lasix daily, Follow I/Os, daily weights, etc.
Continue Toprol, Aldactone; she does not have coverage for SGLTi
# Paroxysmal Atrial Fibrillation
# Had tachycardia mediated cardiomyopathy during recent visit and ? recurrence of this.
# Torsades, by PPM interrogation
Dig level at 0.8
Cont Metoprolol
PPM interrogated, noted Torsades
Off dofetilide & digoxin per card, for DIE CUTTER DIAMOND-P and AVJ ablation today 08/09
Eliquis on hold
# Congestion, Intermittent Ear fullness
# R ear pain
s/p trial of Sudafed short course
trial of Debrox ear drop
# Asymptomatic bacteruria
urine cultures negative
stopped abx
# Abnormal troponin, non-ischemic myocardial injury, 2/2 to arrhythmias
no chest pain
cards on board
# COPD without Acute Exacerbation
# suspect RAMY
# Nocturnal Hypoxemia
# Chronic Hypoxemic Respiratory Failure
# Chronic Pulmonary Nodules
stable on 3-5 Lpm which she was discharged on.
Nebs, supplemental O2, etc.
Patient should follow-up as an outpatient to complete formal PSG and arrange outpatient PAP therapy.
# Hypotension�- Stable.�
Continue midodrine to prevent symptomatic hypotension / to allow effective diuresis.
Follow for changes in BP.
# Morbid Obesity secondary to excess calories and immobility, Affects all aspects of care.
BMI 39.9
Encourage healthy diet.
Sufficient increase in exercise not likely to be possible in this patient chronically wheelchair confined.
# Mild Hyponatremia
DVT Prophylaxis:� On Eliquis
Code Status:� DNR
DW RN
DW CM
Anticipated Discharge: Within 24 hours
Subjective/Interval History
-
Date of Service: August 10, 2023
Objective Data
-
Labs:
Laboratory Results
08/10/23
06:15
Sodium 133 L
Potassium 3.8
Chloride 97 L
Carbon Dioxide 29
BUN 14
Creatinine 0.8
Glucose 94
Calcium 9.0
Vital Signs:
Vital Signs
Temp Pulse Resp BP Pulse Ox
36.6 C 72 20 110/65 91
08/10/23 11:30 08/10/23 11:30 08/10/23 11:30 08/10/23 11:30 08/10/23 11:30
I&O
08/09/23 08/10/23 08/11/23
06:59 06:59 06:59
Intake Total 540 / 540 240 / 240
Output Total 100 / 100
Balance 440 / 440 240 / 240
--- NOTE | 2023-08-10 14:27 | CM ---
Patient off floor currently. Per Hospitalist, patient for cardiac ablation today. CM updated Alicia at [facility] with patient status, updated clinicals sent through [facility]. CM will continue to follow for discharge planning needs.
Plan; [facility] SNF when stable, auth approved 08/08-08/10
[2023-08-10] MEDS: LASIX 80 MG PO (17:22)
[2023-08-10] MEDS: DEBROX EAR DROPS 1 DROP OTIC ×2 (17:22→22:15)
[2023-08-10] MEDS: KCL 40 MEQ PO (17:22)
[2023-08-10] MEDS: SINGULAIR 10 MG PO (17:23)
--- NOTE | 2023-08-10 17:34 | ITS.CL.ABL ---
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
Ablation
Procedure Report:
Atrio-Ventricular Junction Ablation:
Ms. Hunt is a very pleasant�68 yr old woman with medical history significant for paroxysmal atrial fibrillation, recurrent atrial flutter and severe atrial scarring is s/p dual chamber pacemaker placed for sick sinus syndrome and has frequent SVT
leading to acute heart failure and repeated hospitalizations is recommended for AV node ablation
�Date of the Procedure:
08/10/2023
Indications:
Recurrent atrial flutter with acute heart failure.
�
Pre-Operative Diagnosis:
Recurrent atrial flutter with acute heart failure.
�
Post-Operative Diagnosis:
Recurrent atrial flutter with acute heart failure.
�
Procedure Performed:
AVJ / AV chris ablation
�
Performing physician:
Angela Haas MD
��
Anesthesia:
See anesthesia records
�
Detailed Description of the Procedure:
Written informed consent was obtained from the patient after a full explanation of the risks and benefits of the procedure including the risks of sedation and anesthesia. The patient was brought to the electrophysiology laboratory in stable
condition in fasting state. Continuous electrocardiographic and hemodynamic monitoring was initiated.
The initial rhythm was atrial paced rhythm.
The procedure site was meticulously prepared with surgical scrub and allowed to dry with no pooling. Sterile draping was applied to cover the procedure site. The image intensifier was draped with sterile bag and positioned over the patient.
Device interrogation and modifications:
The device was interrogated. The PPM has adequate sensing and normal and stable threshold noted at both atrial and ventricular leads. The device is at AAIR <=> DDDR mode.
Sheath and Catheter Placement:
After infusion of local anesthetic, vascular access was obtained under ultrasound guidance and sheaths were placed over guide wire as detailed below.
�
Sheaths:
��������������� - SL1 8.5 Fr sheath in right femoral vein
�
Catheters:
��������������� - Saphire 4 mm ablation catheter
�
Following the sheath placement, EP study was done to identify the His location.� Patient is on the chronic anticoagulation.
The EP study showed atrial fibrillation and His location was identified. RV lead was pacing adequately with intermittent AF with AV chris conduction noted.
�
AV chris ablation:
Using Sapphire catheter (4mm, non-irrigated) radiofrequency ablation catheter), the catheter was placed at the His locations and using 50 sepulveda of energy at 60degree temperature, the AV node was ablated for 60 seconds. The AV conduction disappeared
to RV pacing within 10 seconds of the start of ablation. �
Furthermore, a few of consolidation lesions were applied around that area.
Patient was observed for 15-20 minutes with no sign of AV node recovery.
Post Ablation EP study:
The device was reprogrammed to DDDR 60-120 bpm and normal thresholds noted.
Procedure End
Following the completion of the procedure, the catheter was removed. The sheaths were removed and hemostasis achieved manual compression.
Recommendations:
Continue home medications
�
Estimated Blood loss:
<5 cc
�
Specimens Removed:
None.
�
Implants / Devices:
None
�
Urine output:
None
�
Packs / Drains/ Tubes:
None
�
Instrument / Sponge Count Correct:
Yes
�
Complications of the Procedure:
None
�
Condition of Patient at Time of Transfer:
Hemodynamically stable with no neurological or vascular compromise.
�
Summary:
Successful AV chris ablation
--- NOTE | 2023-08-10 18:00 | PTCARENOTE ---
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 No hematoma noted, site is soft. R pedal pulse weak but palpable. Pt reporting mild decrease in sensation in R foot that is chronic. Pt denies pain. VSS. Tele showing AV paced
rhythm.
[2023-08-10] MEDS: CRESTOR 20 MG PO (22:14)
[2023-08-11 03:39] VITALS: BP 105/59
[2023-08-11 06:00] VITALS: BMI 39.9
[2023-08-11 07:47] VITALS: BP 115/76
[2023-08-11 07:48] VITALS: BP 103/67; BP 115/76; PULSE 73; PULSE 74
--- NOTE | 2023-08-11 07:56 | W.PN.CD ---
Today's Communication / Plan
-
- stable form cardiac stand point now
- plan for SNF at DC
Impression / Plan
-
BACKGROUND: 68F with persistent atrial fibrillation on Eliquis, s/p PVI 09/22/22, repeat PVI and AT/Afl ablation 02/2023, with recurrence and now on Tikosyn, then MDT dual chamber PPM, chronic HFpEF, moderate mitral stenosis, mild , 1st degree AVB,
IVCD, HTN, abnormal EKG, CVA in 1988, left breast cancer 2010 s/p chemo, surgery, and radiation, chronic PIERCE, morbid obesity, and lymphedema who presented with weakness
Orchid Hand: Dr. Montes
Weakness, suspected to be related to deconditioning, per primary -- plan for SNF at DC
HFpEF, acute on chronic, improved with diuresis
- Echo 07/20/23 showed LVEF of 30%, recovered to 50% 07/26/23
- Normal cors in 2022
- Lowest documented weight, dry weight will need to be adjusted: 121kg
- Stable on furosemide 80mg PO daily
- Continue Aldactone; she did not have coverage for SGLT2
Torsades, by PPM interrogation
- Lasting 2 minutes and 12 seconds on 08/01/23
- Mg 1.8 08/03/23
- Off the dofetilide & digoxin,
- s/p AVJ - 08/10/23
Atrial arrhythmias: SVT, AT, atrial fibrillation
- SVT on admission
- Oral Anticoagulation: Apixaban 5mg BID
- [id number]: score at least 5 (Heart failure, prior Stroke/TIA, age 65-74, female gender)
- Decreased BB with hypotension.�Metoprolol now at to 37.5 mg BID
- now off the Tikosyn and digoxin - suspected that�initiated by delayed afterdepolarizations (DADs).
- EP Plans: Given patient's extensive scarring of the right and left atria, she has undergone AVJ 08/10/23 and plan for ECHO in 3 months with hx of fluctuating EF. If EF is lower then can consider upgrading to DIRECTOR CHILD with with DIRECTOR CHILD-P or DIRECTOR CHILD-D based on
the extent of LV dysfunction.
Abnormal troponin, non-ischemic myocardial injury in the setting of tachyarrhythmia
- Peak on admission, 0.039, trended down
- Chest pain free
Chronic hypotension, on midodrine
[employer] PPM, last device check 07/01/2023 - normal lead function
Mitral stenosis, moderate, stable
COPD with chronic hypoxemic respiratory failure, on 5 LPM continuously
Remote Stroke, without residual deficit
Prior Breast cancer s/p lumpectomy, XRT, & chemotherapy
Obesity, BMI 40, she would benefit from weight loss
Lymphedema
SUBJECTIVE:
Denies CP and shortness of breath. on chronic oxygen now
Physical Exam
Vital Signs/Labs
Vital Signs
Temp Pulse Resp BP Pulse Ox
98 F 73 16 115/76 93
08/11/23 07:47 08/11/23 07:47 08/11/23 07:47 08/11/23 07:47 08/11/23 07:47
08/10/23 08/11/23 08/12/23
06:59 06:59 06:59
Actual Weight 119.04 kg 118.87 kg
Magnesium 1.9 mg/dl (1.6-2.3) 08/05/23 06:30
Digoxin 0.8 ng/ml (0.8-2.0) 08/04/23 05:52
08/02/23
18:10
[id number] Pept 60050
Physical Exam
Constitutional: No acute distress and Comfortable
EENT: Anicteric and Moist mucous membranes
Cardiovascular: Rhythm & rate is regular, Pedal edema is absent, JVD pressure is normal and Systolic murmur present
Respiratory: Respiratory effort normal and Rhonchi Present
GI: Soft, Non tender and Normal bowel sounds
Neuro/Psych: Alert, Oriented, AO x 3 and Motor deficits absent
Data Reviewed
-
Date of Service: August 11, 2023
Medical Decision Making: Reviewed Test Results and Independent Historian Assessment
EKG: Tracing Personally Visualized and interpreted
Echo: Report Reviewed by me
Labs: Labs Reviewed by me
Old Records: Reviewed
[2023-08-11 08:15] LABS: Hematocrit 42.8 % (37.0-47.0); Hemoglobin 13.4 g/dL (12.0-16.0); Mean Corp Hgb Conc. 31.3 g/dL (33.0-37.0); Mean Corpuscular Hgb 30.8 pg (27.0-31.0); Mean Corpuscular Volume 98.4 fL (81.0-99.0); Mean Platelet Volume 10.1 fL (7.4-10.4); Platelet Count 316 10^3/uL (130-400); Red Blood Cell Count 4.35 10^6/uL (4.20-5.40); Red Cell Dist. Width 15.9 % (11.5-14.5); White Blood Cell Count 8.2 10^3/uL (4.8-10.8)
[2023-08-11 09:04] LABS: Blood Urea Nitrogen 14 mg/dl (7-17); Calcium 9.2 mg/dl (8.4-10.2); Carbon Dioxide 26 mmol/L (22-30); Chloride 95 mmol/L (98-107); Estimated Creatinine Clearance 103 ml/min; Glucose 136 mg/dl (70-99); Magnesium 1.9 mg/dl (1.6-2.3); Sodium 135 mmol/L (135-145); eGFR > 60.00
[2023-08-11] MEDS: ALDACTONE 25 MG PO (09:15)
[2023-08-11] MEDS: SENOKOT-S 1 TABLET PO (09:17)
[2023-08-11] MEDS: PROTONIX 40 MG PO (09:17)
[2023-08-11] MEDS: TOPROL XL 37.5 MG PO (09:18)
[2023-08-11] MEDS: ProAmatine 10 MG PO (09:21)
[2023-08-11] MEDS: LASIX 80 MG PO (09:22)
[2023-08-11] MEDS: KCL 40 MEQ PO (09:23)
[2023-08-11] MEDS: DESENEX/MITRAZOL/ZEASORB 1 APPLIC TOPICAL (09:25)
[2023-08-11] MEDS: DEBROX EAR DROPS 1 DROP OTIC (09:25)
--- NOTE | 2023-08-11 11:04 | CM ---
Addendum entered by Chayo Reno 08/11/23 11:26:
[facility]
Report: [phone]

Original Note:
Patient seen bedside, discussed per Hospitalist, patient clear for discharge today. Patient switched to inpatient status, IMM reviewed, signed, placed in patients chart. CM spoke with Alicia from [facility], provided auth information. CM will
continue to follow for discharge planning needs.
Plan; [facility] SNF, ambulance transport 4:30 p.m.
[2023-08-11 11:19] VITALS: BP 105/62
--- NOTE | 2023-08-11 11:50 | W.PN.HOSP.TC ---
Addendum entered and electronically signed by Preeti Abdul MD 08/11/23 14:43:
Total DC time 35 minutes
Original Note:
Today's Communication/Plan
-
for SNF today
Assessment / Plan
Assessment / Plan
HPI: Patient is a 68y F with PMH significant for paroxysmal A-Fib, CHFpEF and obesity who presented to ED for evaluation of generalized weakness and fatigue.
A/P:�
# Generalized Weakness / Fatigue, Suspect symptoms largely secondary to deconditioning / recent hospitalizations, arrhythmias
Wheelchair-bound at baseline.
PT / OT recc SNF
# Acute on Chronic HFrEF
Echo 07/20/23 showed LVEF of 30%, recovered to 50% 07/26/23
s/p IV Lasix -> PO 80 mg Lasix daily, Follow I/Os, daily weights, etc.
Continue Toprol, Aldactone; she does not have coverage for SGLTi
# Paroxysmal Atrial Fibrillation
# Had tachycardia mediated cardiomyopathy during recent visit and ? recurrence of this.
# Torsades, by PPM interrogation
Dig level at 0.8
Cont Metoprolol
PPM interrogated, noted Torsades
Off dofetilide & digoxin per card, s/p AVJ - 08/10/23
resumed Eliquis
# Congestion, Intermittent Ear fullness
# R ear pain
s/p trial of Sudafed short course
s/p trial of Debrox ear drop
# Asymptomatic bacteruria
urine cultures negative
stopped abx
# Abnormal troponin, non-ischemic myocardial injury, 2/2 to arrhythmias
no chest pain
cards on board
# COPD without Acute Exacerbation
# suspect RAMY
# Nocturnal Hypoxemia
# Chronic Hypoxemic Respiratory Failure
# Chronic Pulmonary Nodules
stable on 3-5 Lpm which she was discharged on.
Nebs, supplemental O2, etc.
Patient should follow-up as an outpatient to complete formal PSG and arrange outpatient PAP therapy.
# Hypotension�- Stable.�
Continue midodrine to prevent symptomatic hypotension / to allow effective diuresis.
Follow for changes in BP.
# Morbid Obesity secondary to excess calories and immobility, Affects all aspects of care.
BMI 39.9
Encourage healthy diet.
Sufficient increase in exercise not likely to be possible in this patient chronically wheelchair confined.
# Mild Hyponatremia
DVT Prophylaxis:� On Eliquis
Code Status:� DNR
DW CM
Anticipated Discharge: Today
Subjective/Interval History
-
Date of Service: August 11, 2023
Objective Data
-
Labs:
Laboratory Results
08/11/23
06:35
WBC 8.2
Hgb 13.4
Hct 42.8
Plt Count 316
Sodium 135
Potassium 4.0
Chloride 95 L
Carbon Dioxide 26
BUN 14
Creatinine 0.7
Glucose 136 H
Calcium 9.2
Vital Signs:
Vital Signs
Temp Pulse Resp BP Pulse Ox
36.9 C 73 21 105/62 94
08/11/23 11:19 08/11/23 11:19 08/11/23 11:19 08/11/23 11:19 08/11/23 11:19
I&O
08/10/23 08/11/23 08/12/23
06:59 06:59 06:59
Intake Total 240 / 240 480 / 480
Balance 240 / 240 480 / 480
Review of Systems
-
History Source: Patient
All other systems: Not reviewed unless documented
Physical Exam
-
General: Well Developed, Well Nourished, Comfortable and Respiratory Distress (Chronic)
HEENT: Normocephalic, Atraumatic and Oxygen (4L NC)
Respiratory: Clear to Auscultation and Non Labored Respirations; Negative Wheezes or Accessory Resp Muscle Use
Cardiac: Regular Rhythm and S1/S2
GI: Soft
Musculoskeletal: No Clubbing and No Cyanosis
Skin: Warm
Neuro: Awake, Alert, Oriented and AO x 3
Psych: Calm and Intact Judgement/Insight
Data Reviewed
-
Labs: Labs Reviewed by me
--- NOTE | 2023-08-11 14:29 | W.DCSUMMARY ---
Discharge Summary
Discharge Data
Date of Admission: 08/10/23
Date of Discharge: 08/11/23
-
Pending Results: No
Hospital Course
Principal Diagnosis:
Acute on Chronic heart failure with reduced ejection fraction (HFrEF)
torsade noted on Pacemaker interrogation
Intermittent right ear pain, resolved
Chronic Diagnoses:�
Paroxysmal Atrial Fibrillation
COPD without Acute Exacerbation
suspect obstructive sleep apnea
Chronic Hypoxemic Respiratory Failure on 3 L nasal cannula
Chronic Pulmonary Nodules
Chronic hypotension�- Stable on midodrine
Morbid Obesity secondary to excess calories and immobility, BMI 39.9
Consultations:�
Cardiology
Procedures:�
AV node ablation
Clinical course:�
This is a 68-year-old female, with past medical history as stated above, who presented with generalized weakness and fatigue.
Of note, she is wheelchair-bound at baseline.
Problem 1:
Acute on Chronic heart failure with reduced ejection fraction.
This was associated with nonischemic myocardial injury.
Her Echo from 07/20/23 showed an EF of 30%, which recovered to 50% on 07/26/23
She received IV Lasix while in the hospital, and was discharged with oral Lasix 80 mg daily to continue going forward.
She can also continue with Toprol and Aldactone.
Unfortunately, she does not have coverage for SGLT.
She was discharged to SNF per PT OT recommendation.
Problem 2:
Torsade noted on Pacemaker interrogation.
Her digoxin level was at 0.8.
Due to the torsade, she had AV node ablation on 08/10/2023 by EP.
Her prior to admission digoxin and dofetilide were discontinued.
Problem 3:
Intermittent right ear pain, resolved.
She was started with a short trial of Sudafed.
She also had trial of Debrox eardrop.
As for the rest of her medical problems, they were stable during her hospital stay.
Discharge Plan
-
Patient Disposition: [facility]/SNF
Discharge Diagnosis/Procedures: Generalized Weakness / Fatigue suspect secondary to deconditioning / recent hospitalizations and arrhythmias; Acute on Chronic heart failure; Torsades noted by pacemaker interrogation status post AV node ablation
08/10/23
Condition: Fair
Diet: Low Fat, Low Cholesterol and Restrict fluids to 48 oz
Activity: As tolerated
Driving Restrictions: Not until seen by your Dr
Blood Work: bmp in 1 week with pcp
Specialty Instructions: Weigh Daily- Call MD for wt gain/loss 3 lbs overnight/5 lbs in 1 week
Instructions: *CBC Heart Failure Instructions
Referrals:
Luz Costa NP [Specified Professional Personl] - 08/30/23 10:20 am
Qiana Rodriguez MD [Family Provider] -
Kwabena Bridges MD [Active] - (PSG)
Additional Discharge Medication Instructions: Stop dofetilide and digoxin
Prescriptions:
New
miconazole nitrate [Miconazorb AF] 2 % Powder
1 applic topical BID 30 Days Qty: 85 0RF
Continued
montelukast 10 mg Tablet
10 mg PO QPM
Eliquis 5 mg Tablet
5 mg PO BID Qty: 60 0RF
furosemide [Lasix] 80 mg tablet
80 mg PO DAILY@1500
polyvinyl alcohol 1.4 % Drops
1 drp BOTH EYES BIDPRN PRN (Reason: dryness)
rosuvastatin 20 mg Tablet
20 mg PO HS
fluticasone propion-salmeterol [Wixela Inhub] 250-50 mcg/dose Blister With Device
2 inh INHALATION R BIDPRN PRN (Reason: SOB)
spironolactone [Aldactone] 25 mg Tablet
25 mg PO DAILY
therapeutic multivitamin Tablet
1 tab PO DAILY Qty: 0
acetaminophen [Tylenol] 325 mg Tablet
650 mg PO BIDPRN PRN (Reason: mild pain)
omeprazole 20 mg Capsule,Delayed Release(Dr/Ec)
20 mg PO DAILY
polyethylene glycol 3350 [HealthyLax] 17 gram Powder In Packet
17 g PO DAILY Qty: 30 0RF
midodrine 5 mg Tablet
10 mg PO BID Qty: 60 0RF
metoprolol succinate 25 mg Tablet Extended Release 24 Hr
37.5 mg PO DAILY Qty: 30 0RF
potassium chloride 20 mEq Tablet Extended Release
40 meq PO DAILY Qty: 0 0RF
docusate sodium 100 mg capsule
100 mg PO DAILY PRN (Reason: constipation)
Discontinued
digoxin 250 mcg (0.25 mg) Tablet
250 mcg PO NOON Qty: 30 0RF
dofetilide 500 mcg Capsule
500 mcg PO Q12H Qty: 60 0RF
Discharge Orders:
Discharge Patient (As Directed); Ordered 08/11/23
Ordered By: Preeti Abdul
Discharge Date and Time
Print Language: PORTUGUESE
[2023-08-11 15:40] VITALS: BP 94/51
== END 2023-08-11 17:03 | DRG 273 ==
LOC: 4 EAST ACU 15:54
PROVIDERS: Internal Medicine; Internal Medicine Cardiovascular Disease; Nurse Practitioner Adult Health; Nurse Practitioner Gerontology; Physician Assistant; ADMITTING PHYSICIAN Hospitalist; ATTENDING PHYSICIAN Internal Medicine; CONSULT PHYSICIAN Internal Medicine Cardiovascular Disease; EMERGENCY PHYSICIAN Emergency Medicine; FAMILY PHYSICIAN Family Medicine
PROC: 4A023FZ Measurement of Cardiac Rhythm, Percutaneous Approach (ICD-10-PCS; 2023-08-10)
PROC: 02583ZZ Destruction of Conduction Mechanism, Percutaneous Approach (ICD-10-PCS; 2023-08-10)
PROC: 4A0234Z Measurement of Cardiac Electrical Activity, Percutaneous Approach (ICD-10-PCS; 2023-08-10)
PROC: 4B02XSZ Measurement of Cardiac Pacemaker, External Approach (ICD-10-PCS; 2023-08-10)
DX: I48.19 Other persistent atrial fibrillation (principal); I50.43 Acute on chronic combined systolic (congestive) and diastolic (congestive) heart failure; N39.0 Urinary tract infection, site not specified; J96.11 Chronic respiratory failure with hypoxia; E87.1 Hypo-osmolality and hyponatremia; I5A Non-ischemic myocardial injury (non-traumatic); Z68.41 Body mass index [BMI] 40.0-44.9, adult; Z74.01 Bed confinement status; I48.92 Unspecified atrial flutter; I47.21 Torsades de pointes; Z11.52 Encounter for screening for COVID-19; Z87.891 Personal history of nicotine dependence; Z99.3 Dependence on wheelchair; J44.89 Other specified chronic obstructive pulmonary disease; E66.01 Morbid (severe) obesity due to excess calories; Z66 Do not resuscitate; Z79.01 Long term (current) use of anticoagulants; I95.89 Other hypotension; R82.71 Bacteriuria; I11.0 Hypertensive heart disease with heart failure; G47.33 Obstructive sleep apnea (adult) (pediatric); H92.01 Otalgia, right ear
CPT/HCPCS: 71045; 80048; 80053; 80162; 81003; 81015; 83735; 83880; 84145; 84484; 85025; 85027; 87070; 87086; 87205; 87502; 87811; 93005; 93288; 93650; 94640; 96374; 97163; 97167; 97530; 97535; 99285; C1733; C1894

== ENCOUNTER 2023-08-24 23:40 | Inpatient (IN) | payer MEDICARE, OTHER, SELFPAY ==
[2023-08-24 20:31] VITALS: BMI 41.3
[2023-08-24 20:34] VITALS: BP 130/88
[2023-08-24 21:02] VITALS: BP 109/91
[2023-08-24 21:48] LABS: COVID-19 Antigen Negative (Negative)
[2023-08-24 22:01] VITALS: BP 130/75
[2023-08-24 22:01] LABS: % Basophils 1.3 % (0-2); % Eosinophils 0.3 % (0-6); % Immature Granulocytes 0.6 % (0-0.5); % Lymphocytes 8.6 % (20.5-51.1); % Monocytes 8.4 % (1.7-9.3); % Neutrophils 80.8 % (42.2-75.2); Absolute Basophils 0.1 10^3/uL (0-0.2); Absolute Lymphocytes 0.6 10^3/uL (1.2-3.4); Absolute Monocytes 0.6 10^3/uL (0.1-0.6); Absolute Neutrophils 5.8 10^3/uL (1.4-6.5); Hematocrit 41.6 % (37.0-47.0); Hemoglobin 13.7 g/dL (12.0-16.0); Mean Corp Hgb Conc. 32.9 g/dL (33.0-37.0); Mean Corpuscular Hgb 31.2 pg (27.0-31.0); Mean Corpuscular Volume 94.8 fL (81.0-99.0); Mean Platelet Volume 9.9 fL (7.4-10.4); Nucleated Red Blood Cells % 0 %; Platelet Count 329 10^3/uL (130-400); Red Blood Cell Count 4.39 10^6/uL (4.20-5.40); Red Cell Dist. Width 16.8 % (11.5-14.5); White Blood Cell Count 7.1 10^3/uL (4.8-10.8)
[2023-08-24 22:32] LABS: ALT (SGPT) 18 U/L (0-35); AST (SGOT) 32 U/L (14-36); Albumin 3.3 g/dl (3.5-5.0); Alkaline Phosphatase 98 U/L (38-126); Blood Urea Nitrogen 12 mg/dl (7-17); Calcium 8.8 mg/dl (8.4-10.2); Carbon Dioxide 24 mmol/L (22-30); Chloride 99 mmol/L (98-107); Estimated Creatinine Clearance 89 ml/min; Glucose 102 mg/dl (70-99); Potassium 3.8 mmol/L (3.5-5.1); Sodium 131 mmol/L (135-145); Total Bilirubin 1.8 mg/dl (0.2-1.3); Total Protein 7.6 g/dl (6.3-8.2); eGFR > 60.00
--- NOTE | 2023-08-24 22:54 | ED.GENMED ---
History of Present Illness
General
Chief Complaint: Fatigue
Source: patient
Exam Limitations: none
Time Seen by Provider: 08/24/23 21:09
Nursing documentation reviewed up to this point in time: agreed with
Travel History
Have you had any contact with someone who has COVID-19?: No
Do you have any symptoms of coronavirus? Fever > 100 degrees, chills, cough, shortness of breath, sore throat, loss of taste or smell, muscle aches, or headache?: No
History of Present Illness
History of Present Illness:
68-year-old female with history as documented presents to the emergency room for evaluation of malaise, cough, fatigue. Patient was admitted to this hospital until 08/11/2023�was admitted for CHF exacerbation. She says she was
discharged to a intermediate facility/rehab and stayed there for 4 to 5 days before returning home. Since returning home she says she has had progressive malaise (total symptom duration she says is about a). She describes generalized fatigue,
'coughing up a storm' and very poor appetite. She says she has had some mild shortness of breath. She describes some slight tightness in her chest. She denies any significant swelling in her legs. She denies any fevers or chills. She reports
compliance with all her medications.
Past History
Past History
ED Past Medical History: Arrthythmia, Asthma, Cancer (breast), CHF, CVA (TIA), HTN, Other (RAMY) and Other (mvp)
ED Past Surgical History: Cardiac, Cholecystectomy, , Tonsilectomy and Other (gall bladder, lymph nodes left breast)
Social History
Tobacco: Non-smoker
Alcohol: None
Drug: None
Personal: Single
Living: with family
Employment: Not employed
Review of Systems
Review of Systems
All Other Systems: ROS reviewed and negative except as documented in HPI and ROS
Constitutional: Reports fatigue; Denies fever or chills
EENT: Denies sore throat or runny nose
Respiratory: Reports cough and trouble breathing
Cardiac: Reports chest pain
ABD/GI: Denies abdominal pain, nausea or vomiting
: Denies flank pain
Musculoskeletal: Denies edema, neck pain or back pain
Neurological: Denies headache, weakness or numbness
Phy Exam
Physical Exam
Physical Exam:
General: Awake, alert, oriented x3; no acute distress
Head: Normocephalic, atraumatic
Eyes: Conjunctiva normal, sclera anicteric
Throat: Airway intact, handling secretions
Neck: Trachea midline, supple without meningismus
Lungs: Faint scattered wheezing with frequent hacking cough; patient is saturating 96% on 4 L which she says is her baseline recently; she has mild tachypnea with respiratory rate of 22
Heart: Regular rate and rhythm, no murmurs, gallops, or rubs appreciated
Abd: Soft, non distended, nontender
Neuro: Cranial nerves grossly intact, speech fluid
Skin: no rash
Extremities: No edema in extremities, equal pulses in all extremities
Scores
Heart Failure Risk
Heart Failure Risk Score: Not Applicable
Heart Score for Chest Pain Patients
STEMI patient?: Not applicable
Withdrawal Assessment of Alcohol
Withdrawal Assessment Completed?: Not applicable
Course
Orders/Labs/Results
Orders:
Orders
08/24/23 20:47
Influenza A+B Rapid Molecular Urgent
ALISTAIR Source: Nasal Swab
Specimen Description:
08/24/23 21:11
CR Chest - 2 Views Urgent
Comment:
Reason For Exam: cough
08/24/23 21:23
COVID-19 Antigen Urgent
Source: Nasal Swab
08/24/23 21:55
CMP [Comprehensive Metabolic Panel] Urgent
Complete Blood Count/With Diff Urgent
NT-proBNP Urgent
Comment: ADD ON
08/24/23 22:58
Add On- LAB Urgent
Tests Added?: pro BNP
08/24/23 22:59
Electrocardiogram (*1) Urgent
Reason for Study: Shortness of Breath
EKG- Treatment ONCE
Abnormal Lab Results
08/24/23
21:55
MCH 31.2 H pg
(27.0-31.0)
MCHC 32.9 L g/dL
(33.0-37.0)
RDW 16.8 H %
(11.5-14.5)
Absolute Lymphs (auto) 0.6 L 10^3/uL
(1.2-3.4)
Immature Gran % 0.6 H %
(0-0.5)
Neutrophils % 80.8 H %
(42.2-75.2)
Lymphocytes % 8.6 L %
(20.5-51.1)
Sodium 131 L mmol/L
(135-145)
Glucose 102 H mg/dl
(70-99)
Total Bilirubin 1.8 H mg/dl
(0.2-1.3)
Albumin 3.3 L g/dl
(3.5-5.0)
08/24/23 21:55
08/24/23 21:55
Vital Signs
Initial and Last Documented VS:
Initial Vital Signs
Temp Pulse Resp BP Pulse Ox
36.8 C 100 24 130/88 88
08/24/23 20:34 08/24/23 20:34 08/24/23 20:34 08/24/23 20:34 08/24/23 20:34
Last Documented Vital Signs
Temp Pulse Resp BP Pulse Ox
36.8 C 71 16 130/75 96
08/24/23 20:34 08/24/23 22:01 08/24/23 22:00 08/24/23 22:01 08/24/23 22:01
MDM/Problems Addressed
Differential Diagnosis Includes:
Viral syndrome, asthma exacerbation, bronchitis, pneumonia, CHF
MDM/Problems Addressed:
68-year-old female presents with cough, fatigue, shortness of breath and malaise for the past week. Vital signs significant for mild tachypnea. Physical exam as above. Plan to place an IV check labs including a CBC and a CMP. Will check a BNP.
Will swab for COVID and flu. Check a chest x-ray. Check an EKG. Will monitor closely reassess after the above.
Initial labs reviewed: CBC unremarkable, CMP shows no clinically significant abnormalities. COVID and flu swabs were negative. Awaiting chest x-ray.
Chest x-ray reviewed by me shows mild pulmonary edema no clear pneumonia and with no leukocytosis or fever much lower suspicion for pneumonia. Suspect symptoms due to acute CHF. Will treat with IV Lasix. She also has scattered wheezing on exam and
hacking cough in the setting of known asthma history we will treat with DuoNeb and steroid in case of mild asthma as well. Will admit for continued management.
Chronic conditions affecting care:
CHF, obesity, asthma
*Radiology
Radiology exam reviewed: preliminary read by ED provider
*Pulse Oximetry
Patient hypoxic: no
*Critical Care Note
Total Time (30-74mins, 75-104mins- exclusive of procedures): Not Applicable
Data Reviewed
Review of Other/Old Records Reveals: Labs, Records, Radiology Studies and Discharge Summary
Source: patient and records
ED Attending Note
-
Portions of this chart may have been created with voice recognition software.� Occasional wrong word or��sound alike� substitutions may have occurred due to the inherent limitations of voice recognition software.
Discharge Plan
Departure
Prescriptions:
No Action
montelukast 10 mg Tablet
10 mg PO QPM
Eliquis 5 mg Tablet
5 mg PO BID Qty: 60 0RF
furosemide [Lasix] 80 mg tablet
80 mg PO DAILY@1500
polyvinyl alcohol 1.4 % Drops
1 drp BOTH EYES BIDPRN PRN (Reason: dryness)
rosuvastatin 20 mg Tablet
20 mg PO HS
fluticasone propion-salmeterol [Wixela Inhub] 250-50 mcg/dose Blister With Device
2 inh INHALATION R BIDPRN PRN (Reason: SOB)
spironolactone [Aldactone] 25 mg Tablet
25 mg PO DAILY
therapeutic multivitamin Tablet
1 tab PO DAILY Qty: 0
acetaminophen [Tylenol] 325 mg Tablet
650 mg PO BIDPRN PRN (Reason: mild pain)
omeprazole 20 mg Capsule,Delayed Release(Dr/Ec)
20 mg PO DAILY
polyethylene glycol 3350 [HealthyLax] 17 gram Powder In Packet
17 g PO DAILY Qty: 30 0RF
midodrine 5 mg Tablet
10 mg PO BID Qty: 60 0RF
metoprolol succinate 25 mg Tablet Extended Release 24 Hr
37.5 mg PO DAILY Qty: 30 0RF
potassium chloride 20 mEq Tablet Extended Release
40 meq PO DAILY Qty: 0 0RF
docusate sodium 100 mg capsule
100 mg PO DAILY PRN (Reason: constipation)
miconazole nitrate [Miconazorb AF] 2 % Powder
1 applic topical BID 30 Days Qty: 85 0RF
Referrals:
Qiana Rodriguez MD [Family Provider] -
Interventions
Interventions:
*Risk Screen - Suicide Last Done: 08/24/23 20:34
*General Assessment Last Done: 08/24/23 21:19
*Neglect/Abuse Screening Last Done: 08/24/23 20:34
*ED COVID-19 Vaccine History Last Done: 08/24/23 21:19
Discharge Date and Time
Print Language: WELSH
--- NOTE | 2023-08-24 23:19 | HPS.HSE ---
Family Physician
-
Family Physician: Qiana Rodriguez
Chief Complaint
-
cough
History of Present Illness
68-year-old with past medical history for asthma breast cancer, CHF, CVA, TIA, hypertension, obstructive sleep apnea presented to us with productive cough green sputum and at times clear sputum, short of breath which is worse with activity. Denied
orthopnea. Patient denied weight gain. Patient denied any swelling. Patient stated headache. Patient stated being dizzy and lightheaded and weak. Patient denied any fever. Stated runny nose and congestion. Patient denied chest pain. Patient
denied abdominal pain, nausea, vomiting, diarrhea. Patient denied dysuria hematuria.
Chest x-ray with pulmonary edema. Patient received a dose of Lasix in ER. Admitting for further management
Medical History
Past Medical History
Past Medical History: Reports Other
Additional Past Medical History:
Hyperlipidemia
Generalized anxiety disorder
Chronic heart failure
Hypertension
COPD
CVA
Lymphedema
Mitral valve stenosis
Persistent A-fib
Chronic respiratory failure with hypoxia
Ambulatory dysfunction aortic valve stenosis
Cardiac pacemaker
GERD
Past Surgical History: Reports Other
Additional Past Surgical History:
Lap-Band surgery
Left breast lumpectomy with axillary node dissection
Skin cancer excision
Cholecystectomy
Tonsillectomy
Hernia repair
cardiac ablation
Cardioversion
Social History
Tobacco: Non-smoker
Alcohol: None
Drug: None
Personal: Single
Living: Alone
Family History
Family History: Not pertinent
Allergies / Home Medications
Allergies reflects when Allergies were last updated in [facility].
Home Medications with original date entered in [facility]
Allergy/Medication List:
Allergies
Allergy/AdvReac Type Severity Reaction Status Date / Time
codeine Allergy 'loopy' Verified 08/24/23 20:37
Home Medications
montelukast 10 mg tablet 10 mg PO HS Lung/breathing issues 06/23/22
apixaban 5 mg tablet (Eliquis) 5 mg PO BID #60 tabs 07/01/22
furosemide 80 mg tablet (Lasix) 80 mg PO DAILY Fluid retention/Swelling 09/23/22
polyvinyl alcohol 1.4 % eye drops 1 drp BOTH EYES BIDPRN PRN dryness 02/17/23
rosuvastatin 20 mg tablet 20 mg PO HS High Cholesterol 02/17/23
fluticasone 250 mcg-salmeterol 50 mcg/dose blistr powdr for inhalation (Wixela Inhub) 2 inh inhalation R BIDPRN PRN SOB 02/22/23
spironolactone 25 mg tablet (Aldactone) 25 mg PO DAILY Fluid Retention/Swelling 02/22/23
therapeutic multivitamin 1 tab PO DAILY Supplement ##0 04/16/23
acetaminophen 325 mg tablet (Tylenol) 650 mg PO BIDPRN PRN mild pain 07/16/23
omeprazole 20 mg capsule,delayed release 20 mg PO DAILY gerd 07/16/23
metoprolol succinate 25 mg tablet,extended release 24 hr 37.5 mg (1.5 x 25 mg) PO DAILY #30 tabs 07/29/23
midodrine 5 mg tablet 10 mg (2 x 5 mg) PO BID #60 tabs 07/29/23
polyethylene glycol 3350 17 gram oral powder packet (HealthyLax) 17 g PO DAILY #30 ea 07/29/23
docusate sodium 100 mg capsule 100 mg PO DAILY PRN constipation 08/02/23
miconazole nitrate 2 % topical powder (Miconazorb AF) 1 applic topical BID 30 days #85 grams 08/06/23
potassium chloride 20 mEq tablet,extended release 20 meq PO DAILY 08/24/23
Review of Systems
-
Constitutional: Reports No Symptoms
EENT: Reports No Symptoms
Respiratory: Reports Cough and Trouble Breathing
Cardiac: Reports No Symptoms
Abdomen/GI: Reports No Symptoms
: Reports No Symptoms
Musculoskeletal: Reports No Symptoms
Skin: Reports No Symptoms
Neurological: Reports No Symptoms
Endocrine: Reports No Symptoms
Hematologic/Lymphatic: Reports No Symptoms
Psych: Reports No Symptoms
Physical Exam
Vital Signs
Vital Signs
Temp Pulse Resp BP Pulse Ox
98.2 F 71 16 130/75 96
08/24/23 20:34 08/24/23 22:01 08/24/23 22:00 08/24/23 22:01 08/24/23 22:01
Physical Exam
General: Well Developed, Well Nourished and No Apparent Distress
HEENT: NormoCephalic, Moist mucous membranes and Atraumatic
Respiratory: Wheezes
Cardiac: S1/S2 and Regular Rhythm; No Murmur or Rub
GI: Soft, Non Tender, Non Distended and Normal Bowel Sounds; No Organomegaly
Rectal: Deferred by Provider
Musculoskeletal: No Clubbing, No Cyanosis and No Edema
Skin: No Rash
Neuro: AO x 3 and Nonfocal/grossly intact
Psych: Calm
Laboratory Results
-
08/24/23 21:55
08/24/23 21:55
Laboratory Results
Total Bilirubin 1.8 mg/dl (0.2-1.3) H 08/24/23 21:55
AST 32 U/L (14-36) 08/24/23 21:55
ALT 18 U/L (0-35) 08/24/23 21:55
Alkaline Phosphatase 98 U/L (38-126) 08/24/23 21:55
Data Reviewed
-
Diagnostic Radiology: Report Reviewed by me
Lab Data: Labs Reviewed by me
Impression/Plan
-
#CHF exacerbation
-Echo 07/20/23 showed LVEF of 30%, recovered to 50% 07/26/23
-IV Lasix 40 twice daily
-Fluid restriction
-Strict SOM Daily weight
-Cardiology consult
# Hyponatremia likely hypervolemic
-Sodium 131
-Fluid restriction
-Monitor BMP in a.m.
Paroxysmal Atrial Fibrillation
-Cont Metoprolol
-Eliquis
-Obtain EKG
# COPD with mild exacerbation
-Received steroids and nebs in ER
-Continue DuoNebs
-consider steroids, if worsening wheezing
# suspect RAMY
# Nocturnal Hypoxemia
# Chronic Hypoxemic Respiratory Failure
# Chronic Pulmonary Nodules
-Continue supplemental oxygen to keep sat greater than 92
-Wean as tolerated
-Patient uses 4- 5 L at home
# Hypotension�- Stable.�
Continue midodrine
# Morbid Obesity secondary to excess calories and immobility, Affects all aspects of care.
-BMI 41.3
DVT Prophylaxis:� On Eliquis
Code Status:�fullcode
[2023-08-24 23:24] LABS: NT-proBNP 9790 pg/ml
--- NOTE | 2023-08-24 23:40 | W.PN.UPDATE ---
Update Note
Progress Note Update
This is an addendum to the H&P written by Shadia Marquis on 08/24/2023.
Patient seen and examined independently with DIRECTOR CLINICAL OPERATIONS. 68-year-old female past medical history of paroxysmal atrial fibrillation, chronic HFrEF, torsades, obesity, COPD on 4 L baseline, suspected sleep apnea, obesity, presenting with productive cough and
shortness of breath over the past few days associated with some chest tightness and wheezing which improves with cough. Chest x-ray shows pulmonary edema (report pending) and cardiac BNP of 9700.
Lung exam reveals bilateral basal crackles also with some mid lung wheezing. Think presentation is primarily due to CHF exacerbation. Lasix 40 twice daily. Cardiology consulted. Possibly component of COPD exacerbation as well. DuoNebs every 6
hours. Hold off on steroids at this time to see response to Lasix.
[2023-08-24 23:52] VITALS: BP 115/64
[2023-08-24] MEDS: LASIX 40 MG IV (23:55)
[2023-08-24] MEDS: SOLU-MEDROL PF 125 MG IV (23:56)
[2023-08-25] VITALS (12 sets, daily range): BP systolic 95–135; BP diastolic 50–91; PULSE 81; O2SAT 91; BMI 40.5; BMI 39.4
[2023-08-25] MEDS: DUONEB 3 ML INH (00:02)
--- NOTE | 2023-08-25 04:45 | DOWNTIME ---
There was a [employer] Downtime on 08/25/2023 from 0100 to 08/25/2023 at 0439. Downtime documentation of patient's care, including medication administrations, has been reconciled in the electronic record per guidelines. Refer to the
patient's paper chart under the miscellaneous tab to see printed paper medication records and downtime forms.
[2023-08-25] MEDS: ROBITUSSIN DM 5 ML PO ×4 (05:22→21:07)
--- NOTE | 2023-08-25 09:01 | CON.CAR ---
Addendum entered and electronically signed by Marcellus Adam MD 08/25/23 15:08:
I saw and examined the patient.
The LATEX DIPPER's note was reviewed and I agree with the note.
Comment: 68F with recurrent HFpEF
- diurese to goal weight
- CHF education
Original Note:
Consultation
Consultation Request
Date/Time Consultation Requested: 08/25/2321
Date/Time Consultation Performed: 08/25/23854
Requesting Provider: Shadia Marquis
Performing Provider: Lis HAINES for Dr. Adam
Reason for Consultation: CHF
Medical History
-
Chief Complaint: 'exhausted'
History of Present Illness:
68 y/o female with persistent AFIB on Eliquis, s/p PVI 09/22/22 and repeat PVI, AT/AF ablation 02/2023 with recurrence (so started on Tikosyn, which is now d/c), pacemaker, HFpEF, moderate MS, hypertension, CVA, breast ca 2010
(chemo/surgery/radiation), severe obesity, asthma/COPD, RAMY, hypotension on midodrine, on chronic O2 who has had multiple recent hospitalizations. Last admit (d/c two weeks ago) she was treated for CHF exacerbation. Additionally torsades was noted
on pacemaker interrogation, so dofetilide (which had recently been increased) and digoxin (which had recently been added) were stopped. For atrial arrhythmias, AV node ablation was done by Dr. Haas 08/10/23. She went to SNF at d/c, but has since
been home. She has felt so exhausted, so she came back in. Also reports SOB, poor appetite, chest discomfort at times, light-headed feeling, chills, productive cough. She has felt this way for several days now. She is admitted for management of CHF
exacerbation and has been given IV lasix. She is also getting nebs/steroids/mucolytics for COPD exacerbation.
Past Medical History
Past Medical History: Arrhythmias, Cancer, CHF, COPD, CVA, HTN and Other (as above)
Social History
Tobacco: Former Smoker
Family History
Family History: Reviewed & Not Pertinent
Allergies / Home Medications
Allergy/AdvReac Type Severity Reaction Status Date / Time
codeine Allergy 'loopy' Verified 08/24/23 20:37
�Medication �Instructions �Recorded �Confirmed �Type
montelukast 10 mg tablet 10 mg PO HS Lung/breathing issues 06/23/22 08/24/23 History
apixaban 5 mg tablet (Eliquis) 5 mg PO BID #60 tabs 07/01/22 08/24/23 Rx
furosemide 80 mg tablet (Lasix) 80 mg PO DAILY Fluid 09/23/22 08/24/23 History
retention/Swelling
polyvinyl alcohol 1.4 % eye drops 1 drp BOTH EYES BIDPRN PRN dryness 02/17/23 08/24/23 History
rosuvastatin 20 mg tablet 20 mg PO HS High Cholesterol 02/17/23 08/24/23 History
fluticasone 250 mcg-salmeterol 50 2 inh inhalation R BIDPRN PRN SOB 02/22/23 08/24/23 History
mcg/dose blistr powdr for
inhalation (Wixela Inhub)
spironolactone 25 mg tablet 25 mg PO DAILY Fluid 02/22/23 08/24/23 History
(Aldactone) Retention/Swelling
therapeutic multivitamin 1 tab PO DAILY Supplement ##0 04/16/23 08/24/23 History
acetaminophen 325 mg tablet 650 mg PO BIDPRN PRN mild pain 07/16/23 08/24/23 History
(Tylenol)
omeprazole 20 mg capsule,delayed 20 mg PO DAILY gerd 07/16/23 08/24/23 History
release
metoprolol succinate 25 mg 37.5 mg (1.5 x 25 mg) PO DAILY #30 07/29/23 08/24/23 Rx
tablet,extended release 24 hr tabs
midodrine 5 mg tablet 10 mg (2 x 5 mg) PO BID #60 tabs 07/29/23 08/24/23 Rx
polyethylene glycol 3350 17 gram 17 g PO DAILY #30 ea 07/29/23 08/24/23 Rx
oral powder packet (HealthyLax)
docusate sodium 100 mg capsule 100 mg PO DAILY PRN constipation 08/02/23 08/24/23 History
miconazole nitrate 2 % topical 1 applic topical BID 30 days #85 08/06/23 08/24/23 Rx
powder (Miconazorb AF) grams
potassium chloride 20 mEq 20 meq PO DAILY 08/24/23 08/24/23 History
tablet,extended release
Review of Systems
-
History Source: Patient
All other systems: Negative unless noted
Constitutional: Fatigue
Respiratory: Cough and Trouble Breathing
Cardiac: Chest Pain
Neurological: Other (light-headed)
Physical Exam
Vital Signs
Temp Pulse Resp BP Pulse Ox
98.2 F 70 23 108/59 93
08/24/23 20:34 08/25/23 06:30 08/25/23 06:30 08/25/23 06:00 08/25/23 06:30
Lab Results
Ojp-X-Yqnjjqnkomk Pept 9790 pg/ml 08/24/23 21:55
Physical Exam
General: Well Developed and No Apparent Distress
HEENT: Normocephalic and Anicteric
Respiratory: Crackles (b/l bases)
Cardiac: Regular Rhythm
Skin: Warm and Dry
Neuro: AO x 3
Psych: Calm
Impression / Plan
-
Lmlfr-fz-kiklhkr HFimpEF:
-EF previously 30%, improved to 50% on most recent echo
-BNP 9790. Weight similar to previous, but patient reports she has not been eating, but has been drinking more fluid than usual. Dry weight is unclear, but she is volume overloaded at present. Lungs with rales, CXR with pulm edema, pleural
effusions.
-On furosemide 80 mg daily as OP and Aldactone 25 mg daily. No coverage for SGLT2 per notes from previous hospitalization.
-agree with IV diuresis, but will likely need higher dosing (80 mg IV BID)- will await AM labs then adjust- this medicine requires intensive monitoring
Persistent AFIB, atrial arrhythmias:
-now s/p AV node ablation with PPM in place
-continue Eliquis for OAC
-continue metoprolol
-follow telemetry
COPD/asthma:
-management per primary
-on O2 by OK
-received inhaler, steroid, and mucolytic therapy in ED
Data Reviewed
-
EKG: Tracing Personally Visualized and interpreted (v-p, underlying aflutter)
Radiology: Report Reviewed by me (CXR 08/25/23: 1. Findings consistent with pulmonary edema. 2. Small bilateral pleural effusions.)
Medical Tests (Nuc Med, Echo etc): Report Reviewed by me (cath 2022 without CAD)
Labs: Labs Reviewed by me
[2023-08-25] MEDS: ELIQUIS 5 MG PO ×2 (09:03→21:01)
[2023-08-25] MEDS: MIRALAX 17 GRAMS PO (09:03)
[2023-08-25] MEDS: PROTONIX 40 MG PO (09:04)
[2023-08-25] MEDS: KCL 20 MEQ PO (09:04)
[2023-08-25] MEDS: ProAmatine 10 MG PO ×2 (09:04→17:09)
[2023-08-25] MEDS: LASIX 40 MG IV (09:05)
[2023-08-25] MEDS: DESENEX/MITRAZOL/ZEASORB 1 APPLIC TOPICAL ×2 (09:05→21:02)
[2023-08-25] MEDS: TOPROL XL 37.5 MG PO (09:05)
[2023-08-25 09:33] LABS: Hematocrit 43.9 % (37.0-47.0); Hemoglobin 13.9 g/dL (12.0-16.0); Mean Corp Hgb Conc. 31.7 g/dL (33.0-37.0); Mean Corpuscular Hgb 30.8 pg (27.0-31.0); Mean Corpuscular Volume 97.1 fL (81.0-99.0); Mean Platelet Volume 9.9 fL (7.4-10.4); Platelet Count 284 10^3/uL (130-400); Red Blood Cell Count 4.52 10^6/uL (4.20-5.40); Red Cell Dist. Width 16.5 % (11.5-14.5); White Blood Cell Count 4.8 10^3/uL (4.8-10.8)
[2023-08-25 10:06] LABS: ALT (SGPT) 17 U/L (0-35); AST (SGOT) 33 U/L (14-36); Albumin 3.3 g/dl (3.5-5.0); Alkaline Phosphatase 92 U/L (38-126); Blood Urea Nitrogen 15 mg/dl (7-17); Calcium 8.7 mg/dl (8.4-10.2); Carbon Dioxide 26 mmol/L (22-30); Chloride 99 mmol/L (98-107); Direct Bilirubin 0.8 mg/dl (0.0-0.4); Estimated Creatinine Clearance 89 ml/min; Glucose 149 mg/dl (70-99); Potassium 3.7 mmol/L (3.5-5.1); Sodium 133 mmol/L (135-145); Total Bilirubin 1.6 mg/dl (0.2-1.3); Total Cholesterol 115 mg/dl (50-199); Total Protein 7.8 g/dl (6.3-8.2); Triglyceride 94 mg/dl (10-149); Very Low Density Lipoprotein 18 mg/dl (0-30); eGFR > 60.00
[2023-08-25 10:23] LABS: HDL Cholesterol 30 mg/dl; LDL Cholesterol, Calculated 67 mg/dl
--- NOTE | 2023-08-25 10:44 | VNURNOTE ---
Patient is current with [facility] w/SN/PT/[facility], since 08/19 after leaving [place] 4/10 AMA.
Patient lives alone and is wheelchair bound. She relies on friends and neighbors for assistance, will monitor progress and plan at discharge.
--- NOTE | 2023-08-25 10:59 | W.PN.HOSP.TC ---
Today's Communication/Plan
-
Continue diuresis
Add prednisone
Continue inhalers
Acapella
Assessment / Plan
Assessment / Plan
Gen-AAOx3, NAD
HEENT-NC, AT, anicteric, clear oral mm
Neck-supple
CV-reg, no M, +S1/S2
Lungs-mild bilateral expiratory wheezing
Abd-soft, NT, ND
Ext-no edema
Musculoskeletal-no cyanosis, clubbing
Skin-warm and dry
Neuro-grossly non-focal
Psych-calm, cooperative
Acute on chronic hypoxic respiratory failure -largely due to acute pulmonary edema due to acute on chronic heart failure exacerbation. Cannot rule out a component of COPD exacerbation. On home oxygen at 4 L, currently on 4 L of oxygen in the
hospital. Admission chest x-ray with pulmonary edema, small bilateral pleural effusions.
Acute on chronic heart failure exacerbation -previously classified as reduced EF but currently with preserved EF exacerbation. Continue IV Lasix. Cardiology following. Most recent echocardiogram was from 07/26/2023 showing LVEF 50 to 55%. Fluid
restriction.
Known history of mild to moderate TR, mild , moderate MS.
Acute COPD exacerbation -mild. Continue inhalers. Add prednisone.
Persistent atrial fibrillation -continue Eliquis. Treated in the past with AV chris ablation and permanent pacemaker. Continue metoprolol.
Chronic hyponatremia -sodium 133. Fluid restriction.
Essential hypertension -stable. On midodrine for orthostasis.
History of stroke
Hyperlipidemia
Generalized anxiety disorder
Morbid obesity due to excess calories -had lap band surgery in the past.
Full code
Anticipated Discharge: > 48 hours
Subjective/Interval History
-
Date of Service: August 25, 2023
Patient seen and examined. Feels better today compared to yesterday but not back to baseline. Still with cough and shortness of breath.
Objective Data
-
Labs:
Laboratory Results
08/25/23
09:24
WBC 4.8
Hgb 13.9
Hct 43.9
Plt Count 284
Sodium 133 L
Potassium 3.7
Chloride 99
Carbon Dioxide 26
BUN 15
Creatinine 0.8
Glucose 149 H
Calcium 8.7
Total Bilirubin 1.6 H
AST 33
ALT 17
Alkaline Phosphatase 92
Vital Signs:
Vital Signs
Temp Pulse Resp BP Pulse Ox
98.1 F 70 23 103/67 93
08/25/23 07:00 08/25/23 09:04 08/25/23 06:30 08/25/23 09:04 08/25/23 06:30
Review of Systems
-
History Source: Patient
All other systems: Reviewed and negative
[2023-08-25 11:34] LABS: TSH Reflex To Free T4 1.35 uIU/ml (0.47-4.68)
[2023-08-25] MEDS: DELTASONE 40 MG PO (11:48)
[2023-08-25] MEDS: LASIX 80 MG IV (16:14)
[2023-08-25] MEDS: CRESTOR 20 MG PO (21:01)
[2023-08-25] MEDS: SINGULAIR 10 MG PO (21:02)
[2023-08-26 03:00] VITALS: BP 104/61
[2023-08-26 05:44] VITALS: BMI 39.7
[2023-08-26 08:00] VITALS: BP 134/86
--- NOTE | 2023-08-26 08:26 | W.PN.CD ---
Today's Communication / Plan
-
- Lasix 80 IV BID and reset goal weight
- Primary team treating lungs
Impression / Plan
-
Impression: 68F with recurrent HFpEF
Plan:
Ajxjh-dd-tgerdbn HFimpEF:
-EF previously 30%, improved to 50% on most recent echo
-BNP 9790. Weight similar to previous, but patient reports she has not been eating, but has been drinking more fluid than usual. Dry weight is unclear, but she is volume overloaded at present.
-On furosemide 80 mg daily as OP and Aldactone 25 mg daily. No coverage for SGLT2 per notes from previous hospitalization.
-Lasix 80 IV BID and reset goal weight
Productive cough - not typical for just HF
Persistent AFIB, atrial arrhythmias:
-now s/p AV node ablation with PPM in place
-continue Eliquis for OAC
-continue metoprolol
-follow telemetry
COPD/asthma:
-management per primary
-on O2 by NC
-received inhaler, steroid, and mucolytic therapy in ED
Subjective: diuresing. Also bringing up much more mucus. CP with cough
Physical Exam
Vital Signs/Labs
Vital Signs
Temp Pulse Resp BP Pulse Ox
36.7 C 73 18 104/61 93
08/26/23 03:00 08/26/23 03:00 08/26/23 03:00 08/26/23 03:00 08/26/23 03:00
08/25/23 08/26/23 08/27/23
06:59 06:59 06:59
Actual Weight 263 lb 10.766 oz 253 lb
08/25/23 09:24
Triglycerides 94 mg/dl (10-149) 08/25/23 09:24
LDL Cholesterol, Calc 67 mg/dl 08/25/23 09:24
VLDL Cholesterol, Calc 18 mg/dl (0-30) 08/25/23 09:24
HDL Cholesterol 30 mg/dl 08/25/23 09:24
08/24/23
21:55
Sbw-I-Tvlkemjzrls Pept 9790
Physical Exam
Constitutional: No acute distress
EENT: Anicteric and Moist mucous membranes
Cardiovascular: Rhythm & rate is regular, Systolic murmur absent, Diastolic murmur absent and Pedal edema present
Respiratory: Respiratory effort normal and Rhonchi Present
GI: Distention absent, Non tender and Normal bowel sounds
Neuro/Psych: Alert
Data Reviewed
-
Date of Service: August 26, 2023
--- NOTE | 2023-08-26 09:04 | W.PN.HOSP.TC ---
Today's Communication/Plan
-
Continue current care
Add melatonin
Assessment / Plan
Assessment / Plan
Gen-AAOx3, NAD
HEENT-NC, AT, anicteric, clear oral mm
Neck-supple
CV-reg, no M, +S1/S2
Lungs-mild bilateral expiratory wheezing
Abd-soft, NT, ND
Ext-no edema
Musculoskeletal-no cyanosis, clubbing
Skin-warm and dry
Neuro-grossly non-focal
Psych-calm, cooperative
Acute on chronic hypoxic respiratory failure -largely due to acute pulmonary edema due to acute on chronic heart failure exacerbation. Cannot rule out a component of COPD exacerbation. On home oxygen at 4 L, currently on 4 L of oxygen in the
hospital. Admission chest x-ray with pulmonary edema, small bilateral pleural effusions.
Acute on chronic heart failure exacerbation -previously classified as reduced EF but currently with preserved EF exacerbation. Continue IV Lasix. Cardiology following. Most recent echocardiogram was from 07/26/2023 showing LVEF 50 to 55%. Fluid
restriction.
Known history of mild to moderate TR, mild , moderate MS.
Acute COPD exacerbation -mild. Continue inhalers, prednisone. Try to give prednisone early in the day to avoid sleep disruption. Add melatonin.
Persistent atrial fibrillation -continue Eliquis. Treated in the past with AV chris ablation and permanent pacemaker. Continue metoprolol.
Chronic hyponatremia -sodium 133. Fluid restriction. Labs pending for today.
Essential hypertension -stable. On midodrine for orthostasis.
History of stroke
Hyperlipidemia
Generalized anxiety disorder
Morbid obesity due to excess calories -had lap band surgery in the past.
Full code
Anticipated Discharge: > 48 hours
Subjective/Interval History
-
Date of Service: August 26, 2023
Patient seen and examined. Complaining of insomnia. Still wheezing.
Objective Data
-
Labs:
Laboratory Results
08/26/23
07:34
Sodium Pending
Potassium Pending
Chloride Pending
Carbon Dioxide Pending
BUN Pending
Creatinine Pending
Glucose Pending
Calcium Pending
Vital Signs:
Vital Signs
Temp Pulse Resp BP Pulse Ox
97.8 F 72 20 134/86 96
08/26/23 08:00 08/26/23 08:00 08/26/23 08:00 08/26/23 08:00 08/26/23 08:00
I&O
08/25/23 08/26/23 08/27/23
06:59 06:59 06:59
Intake Total 600 / 600
Balance 600 / 600
Review of Systems
-
History Source: Patient
All other systems: Reviewed and negative
[2023-08-26] MEDS: PROTONIX 40 MG PO (09:19)
[2023-08-26] MEDS: ELIQUIS 5 MG PO ×2 (09:20→20:19)
[2023-08-26] MEDS: DELTASONE 40 MG PO (09:20)
[2023-08-26] MEDS: LASIX 80 MG IV ×2 (09:20→17:20)
[2023-08-26] MEDS: DESENEX/MITRAZOL/ZEASORB 1 APPLIC TOPICAL ×2 (09:21→20:20)
[2023-08-26 09:22] LABS: Blood Urea Nitrogen 27 mg/dl (7-17); Calcium 9.1 mg/dl (8.4-10.2); Carbon Dioxide 28 mmol/L (22-30); Chloride 95 mmol/L (98-107); Estimated Creatinine Clearance 87 ml/min; Glucose 113 mg/dl (70-99); Potassium 3.5 mmol/L (3.5-5.1); Sodium 135 mmol/L (135-145); eGFR > 60.00
[2023-08-26] MEDS: MIRALAX 17 GRAMS PO (09:22)
[2023-08-26] MEDS: TOPROL XL 37.5 MG PO (09:22)
[2023-08-26] MEDS: ProAmatine 10 MG PO ×2 (09:22→17:20)
[2023-08-26] MEDS: KCL 20 MEQ PO (09:34)
[2023-08-26 12:30] VITALS: BP 124/83
--- NOTE | 2023-08-26 13:53 | CM ---
Patient seen bedside, initial assessment completed. Patient recently discharged from hospital to [facility], left AMA. Patient current with [facility]. Patient reports she had a horrible experience at [facility] and that is why she left AMA.
Patient resides alone in a one story home, has a wheelchair, on O2 at home. Patient is unsure if she would want to return to a SNF. Patient PCP Qiana Rodriguez, pharmacy [facility]. CM will continue to follow for discharge planning needs.
Plan; home with [facility], watch for PT/OT evaluations.
[2023-08-26 16:00] VITALS: BP 110/57
[2023-08-26 19:35] VITALS: BP 117/73
[2023-08-26] MEDS: CRESTOR 20 MG PO (20:19)
[2023-08-26] MEDS: SINGULAIR 10 MG PO (20:19)
[2023-08-26] MEDS: MELATONIN 5 MG PO (20:19)
[2023-08-26] MEDS: ROBITUSSIN DM 5 ML PO (22:52)
[2023-08-26 23:42] VITALS: BP 124/71
[2023-08-27 03:48] VITALS: BP 104/73
[2023-08-27 06:00] VITALS: BMI 39.5
[2023-08-27 08:09] VITALS: BP 107/63
--- NOTE | 2023-08-27 08:13 | W.PN.CD ---
Today's Communication / Plan
-
continue IV lasix
resume aldactone
Impression / Plan
-
Impression: 68F with recurrent HFpEF
Plan:
Togcg-rg-uvevkck HFimpEF:
-severe, requiring hospitalization and close monitoring of labs and tele
-EF previously 30%, improved to 50% on most recent echo
-BNP 9790. Weight similar to previous, but patient reports she has not been eating, but has been drinking more fluid than usual. Dry weight is unclear, but she is volume overloaded at present.
-On furosemide 80 mg daily as OP and Aldactone 25 mg daily. No coverage for SGLT2 per notes from previous hospitalization.
-resume aldactone
-once euvolemic, will transition to lasix 80mg PO bid
-continue Lasix 80 IV BID, and reset goal weight
Persistent AFIB, atrial arrhythmias:
-now s/p AV node ablation with PPM in place
-continue Eliquis for OAC
-continue metoprolol
-follow telemetry
COPD/asthma:
-management per primary
-on O2 by NC
-received inhaler, steroid, and mucolytic therapy in ED
Subjective:
SOB is slowly improving
Physical Exam
Vital Signs/Labs
Vital Signs
Temp Pulse Resp BP Pulse Ox
97.9 F 72 18 107/63 97
08/27/23 08:09 08/27/23 08:09 08/27/23 08:09 08/27/23 08:09 08/27/23 08:09
08/26/23 08/27/23 08/28/23
06:59 06:59 06:59
Actual Weight 114.759 kg 114.215 kg
08/25/23 09:24
Triglycerides 94 mg/dl (10-149) 08/25/23 09:24
LDL Cholesterol, Calc 67 mg/dl 08/25/23 09:24
VLDL Cholesterol, Calc 18 mg/dl (0-30) 08/25/23 09:24
HDL Cholesterol 30 mg/dl 08/25/23 09:24
08/24/23
21:55
Xgy-X-Khyfimnylrc Pept 9790
Physical Exam
Constitutional: Comfortable
EENT: Moist mucous membranes
Cardiovascular: Rhythm & rate is regular, Pedal edema is absent, JVD present, Systolic murmur present and Diastolic murmur present
Respiratory: Respiratory effort normal and Lungs clear to auscul.
GI: Soft, Distention absent and Flat
Neuro/Psych: AO x 3
Data Reviewed
-
Date of Service: August 27, 2023
EKG: Other (Tele: Field Sales Consultant 70)
Labs: Labs Reviewed by me
--- NOTE | 2023-08-27 08:34 | W.PN.HOSP.TC ---
Today's Communication/Plan
-
Continue current care
PT/OT
Assessment / Plan
Assessment / Plan
Gen-AAOx3, NAD
HEENT-NC, AT, anicteric, clear oral mm
Neck-supple
CV-reg, no M, +S1/S2
Lungs-mild bilateral expiratory wheezing
Abd-soft, NT, ND
Ext-no edema
Musculoskeletal-no cyanosis, clubbing
Skin-warm and dry
Neuro-grossly non-focal
Psych-calm, cooperative
Acute on chronic hypoxic respiratory failure -largely due to acute pulmonary edema due to acute on chronic heart failure exacerbation. Cannot rule out a component of COPD exacerbation. On home oxygen at 4 L, currently on 4 L of oxygen in the
hospital. Admission chest x-ray with pulmonary edema, small bilateral pleural effusions.
Acute on chronic heart failure exacerbation -previously classified as reduced EF but currently with preserved EF exacerbation. Continue IV Lasix. Cardiology following. Most recent echocardiogram was from 07/26/2023 showing LVEF 50 to 55%. Fluid
restriction.
Known history of mild to moderate TR, mild , moderate MS.
Acute COPD exacerbation -mild. Continue inhalers, prednisone. Try to give prednisone early in the day to avoid sleep disruption. Continue melatonin.
Persistent atrial fibrillation -continue Eliquis. Treated in the past with AV chris ablation and permanent pacemaker. Continue metoprolol.
Chronic hyponatremia -sodium 135 yesterday. Fluid restriction. Labs pending for today.
Essential hypertension -stable. On midodrine for orthostasis.
History of stroke
Hyperlipidemia -on rosuvastatin.
Generalized anxiety disorder
Morbid obesity due to excess calories -had lap band surgery in the past.
Full code
PT/OT -she refused evaluation yesterday. Anticipate will likely need SNF on discharge.
Anticipated Discharge: > 48 hours
Subjective/Interval History
-
Date of Service: August 27, 2023
Patient seen and examined. Complaining of sleep disruption. Coughing during the night. Overall states shortness of breath is improving.
Objective Data
-
Labs:
Laboratory Results
08/27/23
06:00
Sodium Pending
Potassium Pending
Chloride Pending
Carbon Dioxide Pending
BUN Pending
Creatinine Pending
Glucose Pending
Calcium Pending
Vital Signs:
Vital Signs
Temp Pulse Resp BP Pulse Ox
97.9 F 72 18 107/63 97
08/27/23 08:09 08/27/23 08:09 08/27/23 08:09 08/27/23 08:09 08/27/23 08:09
I&O
08/26/23 08/27/23 08/28/23
06:59 06:59 06:59
Intake Total 600 / 600 1680 / 1680
Balance 600 / 600 1680 / 1680
Review of Systems
-
History Source: Patient
All other systems: Reviewed and negative
[2023-08-27] MEDS: KCL 20 MEQ PO (08:44)
[2023-08-27] MEDS: DELTASONE 40 MG PO (08:44)
[2023-08-27] MEDS: TOPROL XL 37.5 MG PO (08:44)
[2023-08-27] MEDS: PROTONIX 40 MG PO (08:44)
[2023-08-27] MEDS: ELIQUIS 5 MG PO ×2 (08:44→20:38)
[2023-08-27] MEDS: MIRALAX 17 GRAMS PO (08:45)
[2023-08-27] MEDS: LASIX 80 MG IV ×2 (08:45→16:55)
[2023-08-27] MEDS: DESENEX/MITRAZOL/ZEASORB 1 APPLIC TOPICAL ×2 (08:45→20:43)
[2023-08-27] MEDS: ProAmatine 10 MG PO ×2 (08:45→16:55)
[2023-08-27] MEDS: ALDACTONE 25 MG PO (08:54)
[2023-08-27 11:01] LABS: Blood Urea Nitrogen 33 mg/dl (7-17); Calcium 9.2 mg/dl (8.4-10.2); Carbon Dioxide 33 mmol/L (22-30); Chloride 94 mmol/L (98-107); Estimated Creatinine Clearance 77 ml/min; Glucose 158 mg/dl (70-99); Potassium 3.4 mmol/L (3.5-5.1); Sodium 134 mmol/L (135-145); eGFR > 60.00
[2023-08-27 11:53] VITALS: BP 105/69
--- NOTE | 2023-08-27 14:32 | CM ---
Patient seen bedside, reports she has been coughing all night long. Patient reports she is trying to take it one day at a time. CM will continue to follow for all discharge planning needs.
Plan; home with [facility] vs SNF, patient previously refusing PT, will likely need SNF.
[2023-08-27] MEDS: KCL 40 MEQ PO (15:03)
[2023-08-27 15:54] VITALS: BP 113/74
[2023-08-27] MEDS: ROBITUSSIN DM 5 ML PO (16:59)
[2023-08-27 19:40] VITALS: BP 147/96
[2023-08-27] MEDS: SINGULAIR 10 MG PO (20:42)
[2023-08-27] MEDS: MELATONIN 5 MG PO (20:42)
[2023-08-27] MEDS: CRESTOR 20 MG PO (20:42)
[2023-08-27 23:00] VITALS: BP 133/90
[2023-08-28 06:00] VITALS: BMI 39.6
[2023-08-28 07:00] VITALS: BP 93/67
[2023-08-28] MEDS: ProAmatine 10 MG PO ×2 (08:16→17:22)
[2023-08-28] MEDS: LASIX 80 MG IV (08:23)
[2023-08-28] MEDS: PROTONIX 40 MG PO (08:24)
[2023-08-28] MEDS: MIRALAX PO (08:24)
[2023-08-28] MEDS: ALDACTONE 25 MG PO (08:24)
[2023-08-28] MEDS: ELIQUIS 5 MG PO ×2 (08:24→20:22)
[2023-08-28] MEDS: KCL 40 MEQ PO (08:24)
[2023-08-28] MEDS: TOPROL XL 37.5 MG PO (08:24)
[2023-08-28] MEDS: DESENEX/MITRAZOL/ZEASORB 1 APPLIC TOPICAL ×2 (08:25→20:24)
[2023-08-28 08:39] LABS: Blood Urea Nitrogen 33 mg/dl (7-17); Calcium 9.1 mg/dl (8.4-10.2); Carbon Dioxide 28 mmol/L (22-30); Chloride 98 mmol/L (98-107); Estimated Creatinine Clearance 87 ml/min; Glucose 86 mg/dl (70-99); Potassium 4.4 mmol/L (3.5-5.1); Sodium 134 mmol/L (135-145); eGFR > 60.00
--- NOTE | 2023-08-28 09:31 | W.PN.HOSP.TC ---
Today's Communication/Plan
-
Acapella
Assessment / Plan
Assessment / Plan
Gen-AAOx3, NAD
HEENT-NC, AT, anicteric, clear oral mm
Neck-supple
CV-reg, no M, +S1/S2
Lungs-mild bilateral expiratory wheezing
Abd-soft, NT, ND
Ext-no edema
Musculoskeletal-no cyanosis, clubbing
Skin-warm and dry
Neuro-grossly non-focal
Psych-calm, cooperative
Acute on chronic hypoxic respiratory failure -largely due to acute pulmonary edema due to acute on chronic heart failure exacerbation. Cannot rule out a component of COPD exacerbation. On home oxygen at 4 L, currently on 4 L of oxygen in the
hospital. Admission chest x-ray with pulmonary edema, small bilateral pleural effusions.
Acute on chronic heart failure exacerbation -previously classified as reduced EF but currently with preserved EF exacerbation. Continue IV Lasix. Spironolactone added. Her weight has plateaued. Cardiology following. Most recent echocardiogram
was from 07/26/2023 showing LVEF 50 to 55%. Fluid restriction.
Known history of mild to moderate TR, mild , moderate MS.
Acute COPD exacerbation -mild. Continue inhalers, prednisone. Try to give prednisone early in the day to avoid sleep disruption. Continue melatonin. Please ensure that she has Acapella at the bedside.
Persistent atrial fibrillation -continue Eliquis. Treated in the past with AV chris ablation and permanent pacemaker. Continue metoprolol.
Chronic hyponatremia -sodium 134. Fluid restriction.
Hypokalemia -resolved.
Essential hypertension -stable. On midodrine for orthostasis.
History of stroke
Hyperlipidemia -on rosuvastatin.
Generalized anxiety disorder
Morbid obesity due to excess calories -had lap band surgery in the past.
Full code
PT/OT -she refused evaluation again yesterday. Anticipate will likely need SNF on discharge.
Anticipated Discharge: 24 - 48 hours
Subjective/Interval History
-
Date of Service: August 28, 2023
Patient seen and examined. Complaining of cough, denies shortness of breath.
Objective Data
-
Labs:
Laboratory Results
08/28/23
06:54
Sodium 134 L
Potassium 4.4 D
Chloride 98
Carbon Dioxide 28
BUN 33 H
Creatinine 0.8
Glucose 86
Calcium 9.1
Vital Signs:
Vital Signs
Temp Pulse Resp BP Pulse Ox
97.7 F 72 16 93/64 94
08/28/23 07:00 08/28/23 07:00 08/28/23 07:00 08/28/23 08:16 08/28/23 07:00
I&O
08/27/23 08/28/23 08/29/23
06:59 06:59 06:59
Intake Total 1680 / 1680 240 / 240
Balance 1680 / 1680 240 / 240
Review of Systems
-
History Source: Patient
All other systems: Reviewed and negative
--- NOTE | 2023-08-28 10:43 | W.PN.CD ---
Addendum entered and electronically signed by Amanuel Delacruz MD 08/28/23 13:34:
I saw and examined the patient.
The POLE INCISOR OPERATOR's note was reviewed and I agree with the note.
Overall feeling better. Patient had been on O2 at home. Now on 2 L nasal cannula. Occasional cough with deep inspiration and faint wheeze. With relatively low blood pressures reasonable to transition to oral diuretic. Would also consider
follow-up chest x-ray and follow-up proBNP.
Continue treatment of COPD and asthma as directed by primary team
Original Note:
Today's Communication / Plan
-
BP's lower today
Reduce aldactone to 12.5mg daily
weight has been 114 kg for last few days. Change lasix to 80mg po BID and monitor.
Impression / Plan
-
Impression: 68F with recurrent HFpEF
Plan:
Emork-xa-vtnwfln HFimpEF:
-severe, requiring hospitalization and close monitoring of labs and tele
-EF previously 30%, improved to 50% on most recent echo
-BNP 9790. Weight similar to previous, but patient reports she has not been eating, but has been drinking more fluid than usual. Dry weight is unclear, but she is volume overloaded at present.
-On furosemide 80 mg daily as OP and Aldactone 25 mg daily. No coverage for SGLT2 per notes from previous hospitalization.
- aldactone was resumed but BP's lower today. reduce to 12.5mg daily and monitor BP
-weight has been stable at 114 kg, and BP's lower . Transition to po lasix.
Persistent AFIB, atrial arrhythmias:
-now s/p AV node ablation with PPM in place
-continue Eliquis for OAC
-continue metoprolol
-follow telemetry
COPD/asthma:
-management per primary
-on O2 by NC
Subjective:
She feels breathing has been improving. No CP or palpitations.
Physical Exam
Vital Signs/Labs
Vital Signs
Temp Pulse Resp BP Pulse Ox
97.7 F 72 16 93/64 94
08/28/23 07:00 08/28/23 07:00 08/28/23 07:00 08/28/23 08:16 08/28/23 07:00
08/27/23 08/28/23 08/29/23
06:59 06:59 06:59
Actual Weight 114.215 kg 114.532 kg
08/25/23 09:24
08/28/23 06:54
Magnesium 2.0 mg/dl (1.6-2.3) 08/27/23 09:55
Triglycerides 94 mg/dl (10-149) 08/25/23 09:24
LDL Cholesterol, Calc 67 mg/dl 08/25/23 09:24
VLDL Cholesterol, Calc 18 mg/dl (0-30) 08/25/23 09:24
HDL Cholesterol 30 mg/dl 08/25/23 09:24
08/24/23
21:55
Mys-A-Gqtpzrfrfcq Pept 9790
Physical Exam
Constitutional: No acute distress
Cardiovascular: Rhythm/rate is irregular
Respiratory: Respiratory effort normal and Lungs clear to auscul. (with few exp wheezes )
Neuro/Psych: AO x 3
Data Reviewed
-
Date of Service: August 28, 2023
Labs: Labs Reviewed by me
[2023-08-28 14:54] VITALS: BP 108/62; BP 96/58; PULSE 74
[2023-08-28 15:00] VITALS: BP 110/58
[2023-08-28] MEDS: LASIX 80 MG PO (17:22)
[2023-08-28] MEDS: CRESTOR 20 MG PO (20:23)
[2023-08-28] MEDS: SINGULAIR 10 MG PO (20:23)
[2023-08-28] MEDS: MELATONIN 5 MG PO (20:23)
[2023-08-28] MEDS: COLACE 100 MG PO (20:23)
[2023-08-28 23:02] VITALS: BP 113/63
[2023-08-29 06:00] VITALS: BMI 39.0
[2023-08-29 07:22] LABS: NT-proBNP 3210 pg/ml
[2023-08-29 07:41] LABS: Blood Urea Nitrogen 30 mg/dl (7-17); Calcium 9.1 mg/dl (8.4-10.2); Carbon Dioxide 33 mmol/L (22-30); Chloride 95 mmol/L (98-107); Estimated Creatinine Clearance 86 ml/min; Glucose 93 mg/dl (70-99); Potassium 4.4 mmol/L (3.5-5.1); Sodium 134 mmol/L (135-145); eGFR > 60.00
[2023-08-29 07:48] VITALS: BP 100/69
[2023-08-29] MEDS: DESENEX/MITRAZOL/ZEASORB 1 APPLIC TOPICAL ×2 (10:14→20:16)
[2023-08-29] MEDS: MIRALAX 17 GRAMS PO (10:22)
[2023-08-29] MEDS: PROTONIX 40 MG PO (10:24)
[2023-08-29] MEDS: LASIX 80 MG PO ×2 (10:24→17:36)
[2023-08-29] MEDS: ProAmatine 10 MG PO ×2 (10:24→17:36)
[2023-08-29] MEDS: TOPROL XL 37.5 MG PO (10:25)
[2023-08-29] MEDS: ALDACTONE 12.5 MG PO (10:26)
[2023-08-29] MEDS: KCL 40 MEQ PO (10:26)
[2023-08-29] MEDS: ELIQUIS 5 MG PO ×2 (10:27→20:16)
--- NOTE | 2023-08-29 12:51 | W.PN.HOSP.TC ---
Today's Communication/Plan
-
Continue current care
Assessment / Plan
Assessment / Plan
Gen-AAOx3, NAD
HEENT-NC, AT, anicteric, clear oral mm
Neck-supple
CV-reg, no M, +S1/S2
Lungs-decreased breath sounds bilaterally
Abd-soft, NT, ND
Ext-no edema
Musculoskeletal-no cyanosis, clubbing
Skin-warm and dry
Neuro-grossly non-focal
Psych-calm, cooperative
Acute on chronic hypoxic respiratory failure -largely due to acute pulmonary edema due to acute on chronic heart failure exacerbation. Cannot rule out a component of COPD exacerbation. On home oxygen at 4 L, currently on 3 L of oxygen in the
hospital. Admission chest x-ray with pulmonary edema, small bilateral pleural effusions.
Acute on chronic heart failure exacerbation -previously classified as reduced EF but currently with preserved EF exacerbation. Cardiology has changed furosemide to 80 mg p.o. twice daily. She was on 80 mg once daily prior to admission.
Spironolactone added. Weight is down. Most recent echocardiogram was from 07/26/2023 showing LVEF 50 to 55%. Fluid restriction.
Known history of mild to moderate TR, mild , moderate MS.
BNP down to 3210.
Acute COPD exacerbation -mild. Improved. Continue inhalers. No further wheezing. Received 3 days of prednisone.
Persistent atrial fibrillation -continue Eliquis. Treated in the past with AV chris ablation and permanent pacemaker. Continue metoprolol.
Chronic hyponatremia -sodium 134. Fluid restriction.
Hypokalemia -resolved.
Essential hypertension -stable. On midodrine for orthostasis.
History of stroke
Hyperlipidemia -on rosuvastatin.
Generalized anxiety disorder
Morbid obesity due to excess calories -had lap band surgery in the past.
Full code
Dispo -stable for discharge. Patient prefers to go home on Wednesday as she needs to get a ride. Follow-up as outpatient.
Anticipated Discharge: Within 24 hours
Subjective/Interval History
-
Date of Service: August 29, 2023
Patient seen and examined. Breathing has improved. No complaints.
Objective Data
-
Labs:
Laboratory Results
08/29/23
06:01
Sodium 134 L
Potassium 4.4
Chloride 95 L
Carbon Dioxide 33 H
BUN 30 H
Creatinine 0.8
Glucose 93
Calcium 9.1
Vital Signs:
Vital Signs
Temp Pulse Resp BP Pulse Ox
98.1 F 73 12 100/69 99
08/29/23 07:48 08/29/23 07:48 08/29/23 07:48 08/29/23 07:48 08/29/23 07:48
I&O
08/28/23 08/29/23 08/30/23
06:59 06:59 06:59
Intake Total 240 / 240 240 / 240
Output Total 125 / 125
Balance 240 / 240 115 / 115
Review of Systems
-
History Source: Patient
All other systems: Reviewed and negative
[2023-08-29 16:01] VITALS: BP 115/71
[2023-08-29] MEDS: CRESTOR 20 MG PO (21:35)
[2023-08-29] MEDS: MELATONIN 5 MG PO (21:35)
[2023-08-29] MEDS: SINGULAIR 10 MG PO (21:35)
[2023-08-29 23:15] VITALS: BP 106/68
[2023-08-30 03:55] VITALS: BMI 38.9
[2023-08-30 07:50] VITALS: BP 106/70
[2023-08-30] MEDS: MIRALAX PO (08:08)
[2023-08-30] MEDS: TOPROL XL 37.5 MG PO (08:09)
[2023-08-30] MEDS: KCL 40 MEQ PO (08:09)
[2023-08-30] MEDS: ELIQUIS 5 MG PO ×2 (08:09→20:04)
[2023-08-30] MEDS: PROTONIX 40 MG PO (08:09)
[2023-08-30] MEDS: ProAmatine 10 MG PO ×2 (08:09→16:09)
[2023-08-30] MEDS: ALDACTONE 12.5 MG PO (08:09)
[2023-08-30] MEDS: LASIX 80 MG PO ×2 (08:10→16:09)
[2023-08-30] MEDS: DESENEX/MITRAZOL/ZEASORB 1 APPLIC TOPICAL ×2 (08:11→20:04)
[2023-08-30 09:33] LABS: Blood Urea Nitrogen 24 mg/dl (7-17); Calcium 9.6 mg/dl (8.4-10.2); Carbon Dioxide 32 mmol/L (22-30); Chloride 92 mmol/L (98-107); Estimated Creatinine Clearance 86 ml/min; Glucose 111 mg/dl (70-99); Potassium 3.7 mmol/L (3.5-5.1); Sodium 134 mmol/L (135-145); eGFR > 60.00
[2023-08-30 09:37] VITALS: BP 110/75; BP 126/76; PULSE 70; PULSE 73; O2SAT 97
--- NOTE | 2023-08-30 11:06 | PN.CDI ---
CDI
- -
CDI:
Physician Documentation Request
Admit Date: 08/24/23 23:40
Dear Doctor Man,
Please review the following and provide your response in the progress notes.
Clinical Indicators: Pt admitted with CHF exacerbation and hyponatremia
08/24 RN skin assessment Stage 2 sacral pressure injury POA
Physician documentation of the type and location of wounds is required for compliant documentation. Based on the above clinical findings and your assessment, please provide the following in your progress note:
1. Location of the ulcer/wound, including laterality.
2. Type (etiology) of ulcer/wound:
- Pressure (decubitus) ulcer
- Other
Use of terms such as suspected, likely, concern for, or probable (associated with a specific diagnosis that is being evaluated, monitored, or treated as if it exists) are acceptable and can be coded in the inpatient setting, when documented at the
time of discharge.
Thank you,
Chen Crouch RN, BSN
CDI Specialist
Please use your independent medical judgment in providing your response.
*Source: National Pressure Ulcer Advisory Panel (NPUAP)
--- NOTE | 2023-08-30 12:40 | W.PN.HOSP.TC ---
Today's Communication/Plan
-
Monitor vital signs and see plan
Continue with Lasix
Start Wixela twice daily
possible DC later today or tomorrow
Assessment / Plan
Assessment / Plan
Gen-AAOx3, NAD
HEENT-NC, AT, anicteric, clear oral mm
Neck-supple
CV-reg, no M, +S1/S2
Lungs-decreased breath sounds bilaterally
Abd-soft, NT, ND
Ext-no edema
Musculoskeletal-no cyanosis, clubbing
Skin-warm and dry
Neuro-grossly non-focal
Psych-calm, cooperative
Acute on chronic hypoxic respiratory failure -largely due to acute pulmonary edema due to acute on chronic heart failure exacerbation. Cannot rule out a component of COPD exacerbation. On home oxygen at 4 L, currently on 3 L of oxygen in the
hospital. Admission chest x-ray with pulmonary edema, small bilateral pleural effusions.
Acute on chronic heart failure exacerbation -previously classified as reduced EF but currently with preserved EF exacerbation. Cardiology has changed furosemide to 80 mg p.o. twice daily. She was on 80 mg once daily prior to admission.
Spironolactone added. Weight is down. Most recent echocardiogram was from 07/26/2023 showing LVEF 50 to 55%. Fluid restriction.
Known history of mild to moderate TR, mild , moderate MS.
BNP down to 3210.
Acute COPD exacerbation -mild. Improved. Continue inhalers. No further wheezing. Received 3 days of prednisone. restarted wixella BID
Persistent atrial fibrillation -continue Eliquis. Treated in the past with AV chris ablation and permanent pacemaker. Continue metoprolol.
Chronic hyponatremia -sodium 134. Fluid restriction.
Hypokalemia -resolved.
Essential hypertension -stable. On midodrine for orthostasis.
History of stroke
Hyperlipidemia -on rosuvastatin.
Generalized anxiety disorder
Morbid obesity due to excess calories -had lap band surgery in the past.
Full code
Anticipated Discharge: Within 24 hours
Subjective/Interval History
-
Date of Service: August 30, 2023
Has some cough
Objective Data
-
Labs:
Laboratory Results
08/30/23
08:07
Sodium 134 L
Potassium 3.7
Chloride 92 L
Carbon Dioxide 32 H
BUN 24 H
Creatinine 0.8
Glucose 111 H
Calcium 9.6
Vital Signs:
Vital Signs
Temp Pulse Resp BP Pulse Ox
98.0 F 75 18 106/70 90
08/30/23 07:50 08/30/23 07:50 08/30/23 07:50 08/30/23 07:50 08/30/23 07:50
I&O
08/29/23 08/30/23 08/31/23
06:59 06:59 06:59
Intake Total 480 / 480
Output Total 125 / 125
Balance 355 / 355
[2023-08-30] MEDS: ADVAIR HFA 115/21 MCG INHALER INH (13:47)
[2023-08-30 16:03] VITALS: BP 104/76
--- NOTE | 2023-08-30 16:15 | CM ---
Patient seen bedside, reports she has been uncertain about going to rehab but would like to try to go to [facility]. CM spoke with Alicia, liasion at [facility], will check if they have beds, can offer a bed at [facility]. Per patient, she
does not want to go anywhere other than [facility], if she cannot go to [facility] she will go home with [facility]. CM discussed both PT/OT recommending home health, can try for auth if [facility] can offer a bed, cannot guarantee patient will get
approved. Patient understands and would like to try. CM sent referral in [facility]. CM will continue to follow for discharge planning needs.
Plan; [facility] pending acceptance/auth, otherwise home with [facility].
[2023-08-30] MEDS: ADVAIR HFA 115/21 MCG INHALER 2 PUFF INH (19:30)
[2023-08-30] MEDS: SINGULAIR 10 MG PO (22:27)
[2023-08-30] MEDS: CRESTOR 20 MG PO (22:27)
[2023-08-30] MEDS: MELATONIN 5 MG PO (22:27)
[2023-08-30] MEDS: ROBITUSSIN DM 5 ML PO (22:37)
[2023-08-30 23:39] VITALS: BP 104/63
[2023-08-31 06:00] VITALS: BMI 38.8
[2023-08-31 08:01] VITALS: BP 123/91
[2023-08-31] MEDS: ADVAIR HFA 115/21 MCG INHALER 2 PUFF INH ×2 (08:04→19:42)
[2023-08-31] MEDS: MIRALAX PO (08:19)
[2023-08-31] MEDS: ProAmatine 10 MG PO ×2 (08:21→16:39)
[2023-08-31] MEDS: KCL 40 MEQ PO (08:21)
[2023-08-31] MEDS: LASIX 80 MG PO ×2 (08:21→15:14)
[2023-08-31] MEDS: PROTONIX 40 MG PO (08:21)
[2023-08-31] MEDS: TOPROL XL 37.5 MG PO (08:22)
[2023-08-31] MEDS: ALDACTONE 12.5 MG PO (08:22)
[2023-08-31] MEDS: ELIQUIS 5 MG PO ×2 (08:23→19:55)
[2023-08-31] MEDS: DESENEX/MITRAZOL/ZEASORB 1 APPLIC TOPICAL ×2 (08:23→23:21)
--- NOTE | 2023-08-31 08:35 | PN.CDI ---
CDI
- -
CDI:
Physician Documentation Request
Admit Date: 08/24/23 23:40
Dear Doctor Man,
Please review the following and provide your response in the progress notes.
Clinical Indicators:
Documentation in the record on 08/29 PN includes the diagnosis of Acute on Chronic respiratory failure.
08/23 ER note: 'Faint scattered wheezing with frequent hacking cough; patient is saturating 96% on 4 L which she says is her baseline recently; she has mild tachypnea with respiratory rate of 22'
08/24 PN: 'Acute on chronic hypoxic respiratory failure -largely due to acute pulmonary edema due t acute on chronic heart failure exacerbation.'
'On home oxygen at 4 L, currently on 4 L of oxygen in the hospital.'
Per documented VS: pt remained on 3-4 L O2, maintaining Pulse ox >92%
Recognized standard criteria for respiratory failure includes:
(Source: ACP Hospitalist Mar 2013)
ABGs (1 or more)
�PO2 <60 or RA SpO2 <91%
�PcO2 >50 and pH <7.35
�pO2 decrease or pcO2 increase by 10 mmHg from baseline if known Symptoms:
�Tachypnea, SOB, dyspnea
�Pallor or cyanosis
�Anxiety or restlessness
�Use of accessory muscles
�Retractions (grunting in newborns)
�Unable to speak in complete sentences
Supplemental O2 requirement of 40% (5LPM) or more Intubation is not required
Based on the above information and the recognized standard for respiratory failure could you please verify this diagnoses is still accurate and reflective of the patient�s condition to ensure quality of the medical record.
Please clarify in the Progress Notes:
Acute on Chronic Respiratory failure is/was present and is a clinical diagnosis based on (please include this additional support in the medical record)
After study Acute respiratory failure has been ruled out, Chronic hypoxic respiratory failure only
Other
Use of terms such as suspected, likely, concern for, or probable (associated with a specific diagnosis that is being evaluated, monitored, or treated as if it exists) are acceptable and can be coded in the inpatient setting, when documented at the
time of discharge.
Thank you,
Chen Crouch RN, BSN
CDI Specialist
Please use your independent medical judgment in providing your response.
[2023-08-31 08:47] LABS: Blood Urea Nitrogen 22 mg/dl (7-17); Calcium 9.6 mg/dl (8.4-10.2); Carbon Dioxide 35 mmol/L (22-30); Chloride 89 mmol/L (98-107); Estimated Creatinine Clearance 86 ml/min; Glucose 140 mg/dl (70-99); Potassium 3.3 mmol/L (3.5-5.1); Sodium 132 mmol/L (135-145); eGFR > 60.00
--- NOTE | 2023-08-31 11:59 | W.PN.HOSP.TC ---
Today's Communication/Plan
-
Monitor vital signs see plan
Continue with p.o. Lasix
Disposition pending SNF, director of casework aware
Replete potassium
Assessment / Plan
Assessment / Plan
Gen-AAOx3, NAD
HEENT-NC, AT, anicteric, clear oral mm
Neck-supple
CV-reg, no M, +S1/S2
Lungs-decreased breath sounds bilaterally
Abd-soft, NT, ND
Ext-no edema
Musculoskeletal-no cyanosis, clubbing
Skin-warm and dry
Neuro-grossly non-focal
Psych-calm, cooperative
chronic hypoxic respiratory failure -largely due to acute pulmonary edema due to acute on chronic heart failure exacerbation. Cannot rule out a component of COPD exacerbation. On home oxygen at 4 L, currently on 3-4 L of oxygen in the hospital.
Admission chest x-ray with pulmonary edema, small bilateral pleural effusions.
added mucinex;tessalon pearls
Acute on chronic heart failure exacerbation -previously classified as reduced EF but currently with preserved EF exacerbation. Cardiology has changed furosemide to 80 mg p.o. twice daily. She was on 80 mg once daily prior to admission.
Spironolactone added. Weight is down. Most recent echocardiogram was from 07/26/2023 showing LVEF 50 to 55%. Fluid restriction.
Known history of mild to moderate TR, mild , moderate MS.
BNP down to 3210.
Acute COPD exacerbation -mild. Improved. Continue inhalers. No further wheezing. Received 3 days of prednisone. restarted wixella BID
Persistent atrial fibrillation -continue Eliquis. Treated in the past with AV chris ablation and permanent pacemaker. Continue metoprolol.
Chronic hyponatremia -sodium 132. Fluid restriction.
Hypokalemia -replete
Essential hypertension -stable. On midodrine for orthostasis.
History of stroke
Stage 2 sacral pressure injury POA
Hyperlipidemia -on rosuvastatin.
Generalized anxiety disorder
Morbid obesity due to excess calories -had lap band surgery in the past.
Full code
Patient now wants SNF. 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
Anticipated Discharge: Within 24 hours
Subjective/Interval History
-
Date of Service: August 31, 2023
denies pain
Objective Data
-
Labs:
Laboratory Results
08/31/23
07:13
Sodium 132 L
Potassium 3.3 L
Chloride 89 L
Carbon Dioxide 35 H
BUN 22 H
Creatinine 0.8
Glucose 140 H
Calcium 9.6
Vital Signs:
Vital Signs
Temp Pulse Resp BP Pulse Ox
98.0 F 76 16 123/91 97
08/31/23 08:01 08/31/23 08:09 08/31/23 08:09 08/31/23 08:01 08/31/23 08:09
I&O
08/30/23 08/31/23 09/01/23
06:59 06:59 06:59
Intake Total 480 / 480 1220 / 1220
Output Total 125 / 125
Balance 355 / 355 1220 / 1220
--- NOTE | 2023-08-31 12:05 | CM ---
CM spoke with Alicia, liaison with [facility], [facility], will have a bed . Will need updated OT notes for authorization for SNF, OT to see patient today. [facility] Hospitalist to update with patient now wanting SNF with bed available on .
Patient seen bedside, understands bed will be available . CM will continue to follow for discharge planning needs.
Plan; [facility] pending auth status.
[2023-08-31] MEDS: TESSALON PERLES 200 MG PO ×3 (12:15→23:21)
[2023-08-31] MEDS: MUCINEX 1200 MG PO ×2 (12:15→19:55)
[2023-08-31 12:27] VITALS: BP 111/62; PULSE 73; O2SAT 95
[2023-08-31 16:27] VITALS: BP 128/63
[2023-08-31 23:06] VITALS: BP 92/60
[2023-08-31] MEDS: MELATONIN 5 MG PO (23:21)
[2023-08-31] MEDS: CRESTOR 20 MG PO (23:21)
[2023-08-31] MEDS: SINGULAIR 10 MG PO (23:21)
[2023-09-01 06:00] VITALS: BMI 38.7
[2023-09-01 06:50] LABS: Blood Urea Nitrogen 20 mg/dl (7-17); Calcium 9.3 mg/dl (8.4-10.2); Carbon Dioxide 38 mmol/L (22-30); Chloride 90 mmol/L (98-107); Estimated Creatinine Clearance 76 ml/min; Glucose 114 mg/dl (70-99); Potassium 3.6 mmol/L (3.5-5.1); Sodium 132 mmol/L (135-145); eGFR > 60.00
[2023-09-01 07:55] VITALS: BP 105/62
[2023-09-01] MEDS: ProAmatine 10 MG PO ×2 (08:48→16:25)
[2023-09-01] MEDS: MUCINEX 1200 MG PO ×2 (08:48→20:17)
[2023-09-01] MEDS: TESSALON PERLES 200 MG PO ×3 (08:48→22:23)
[2023-09-01] MEDS: ALDACTONE 12.5 MG PO (08:48)
[2023-09-01] MEDS: MIRALAX 17 GRAMS PO (08:49)
[2023-09-01] MEDS: KCL 40 MEQ PO (08:49)
[2023-09-01] MEDS: TOPROL XL 37.5 MG PO (08:49)
[2023-09-01] MEDS: PROTONIX 40 MG PO (08:49)
[2023-09-01] MEDS: ELIQUIS 5 MG PO ×2 (08:49→20:17)
[2023-09-01] MEDS: LASIX 80 MG PO ×2 (08:49→16:26)
[2023-09-01] MEDS: DESENEX/MITRAZOL/ZEASORB 1 APPLIC TOPICAL ×2 (08:50→20:18)
[2023-09-01] MEDS: ADVAIR HFA 115/21 MCG INHALER 2 PUFF INH ×2 (09:04→19:12)
--- NOTE | 2023-09-01 09:52 | CM ---
CM spoke with Elver from [facility] regarding pending auth #[id number]. Elver had questions regarding patients previous SNF stay as patient left AMA. CM confirmed patient left AMA due to being unhappy with facility, reported patient is willing
to participate in therapy and agreeable to go to SNF. Elver will pass along information to [employer] where clinicals are under review, will call back with any further questions or updates. CM will continue to follow for discharge planning
needs.
Plan: [facility] pending auth, under review.
[2023-09-01 11:52] VITALS: BP 121/79; PULSE 70; O2SAT 97
--- NOTE | 2023-09-01 12:55 | W.PN.HOSP.TC ---
Today's Communication/Plan
-
Monitor vital signs and see plan
Disposition pending placement
cw lasix
Assessment / Plan
Assessment / Plan
Gen-AAOx3, NAD
HEENT-NC, AT, anicteric, clear oral mm
Neck-supple
CV-reg, no M, +S1/S2
Lungs-decreased breath sounds bilaterally
Abd-soft, NT, ND
Ext-no edema
Musculoskeletal-no cyanosis, clubbing
Skin-warm and dry
Neuro-grossly non-focal
Psych-calm, cooperative
acute pulmonary edema due to acute on chronic heart failure exacerbation. Cannot rule out a component of COPD exacerbation. On home oxygen at 4 L, currently on 3-4 L of oxygen in the hospital. Admission chest x-ray with pulmonary edema, small
bilateral pleural effusions.
Does have chronic hypoxic respiratory failure, on baseline 4 L
added mucinex;tessalon pearls
Acute on chronic heart failure exacerbation -previously classified as reduced EF but currently with preserved EF exacerbation. Cardiology has changed furosemide to 80 mg p.o. twice daily. She was on 80 mg once daily prior to admission.
Spironolactone added. Weight is down. Most recent echocardiogram was from 07/26/2023 showing LVEF 50 to 55%. Fluid restriction.
Known history of mild to moderate TR, mild , moderate MS.
BNP down to 3210.
Acute COPD exacerbation -mild. Improved. Continue inhalers. No further wheezing. Received 3 days of prednisone. restarted wixella BID
Persistent atrial fibrillation -continue Eliquis. Treated in the past with AV chris ablation and permanent pacemaker. Continue metoprolol.
Chronic hyponatremia -sodium 132. Fluid restriction.
Hypokalemia -replete
Essential hypertension -stable. On midodrine for orthostasis.
History of stroke
Stage 2 sacral pressure injury POA
Hyperlipidemia -on rosuvastatin.
Generalized anxiety disorder
Morbid obesity due to excess calories -had lap band surgery in the past.
Full code
Patient now wants SNF. operations manager assistant working on authorization.
Anticipated Discharge: Within 24 hours
Subjective/Interval History
-
Date of Service: September 01, 2023
denies pain
Objective Data
-
Labs:
Laboratory Results
09/01/23
05:44
Sodium 132 L
Potassium 3.6
Chloride 90 L
Carbon Dioxide 38 H
BUN 20 H
Creatinine 0.9
Glucose 114 H
Calcium 9.3
Vital Signs:
Vital Signs
Temp Pulse Resp BP Pulse Ox
98.6 F 71 16 105/62 97
09/01/23 07:55 09/01/23 09:07 09/01/23 09:07 09/01/23 08:49 09/01/23 09:07
I&O
08/31/23 09/01/23 09/02/23
06:59 06:59 06:59
Intake Total 1220 / 1220 1200 / 1200
Balance 1220 / 1220 1200 / 1200
[2023-09-01 16:10] VITALS: BP 120/66
[2023-09-01] MEDS: DEBROX EAR DROPS 1 DROP OTIC (16:25)
[2023-09-01] MEDS: SINGULAIR 10 MG PO (22:23)
[2023-09-01] MEDS: MELATONIN 5 MG PO (22:23)
[2023-09-01] MEDS: CRESTOR 20 MG PO (22:23)
[2023-09-01 22:51] VITALS: BP 100/45
--- NOTE | 2023-09-02 01:30 | PTCARENOTE ---
Pt reports indigestion and heartburn. House ORTHOPEDIC NURSE Khanh Shi notified, order for 1x simethicone tablet given to pt.
[2023-09-02] MEDS: MYLICON 80 MG PO (01:39)
[2023-09-02 06:00] VITALS: BMI 39.2
[2023-09-02 07:30] VITALS: BP 100/86
[2023-09-02 08:15] LABS: Blood Urea Nitrogen 19 mg/dl (7-17); Calcium 9.5 mg/dl (8.4-10.2); Carbon Dioxide 33 mmol/L (22-30); Chloride 94 mmol/L (98-107); Estimated Creatinine Clearance 86 ml/min; Glucose 112 mg/dl (70-99); Potassium 3.8 mmol/L (3.5-5.1); Sodium 132 mmol/L (135-145); eGFR > 60.00
--- NOTE | 2023-09-02 08:20 | CM ---
Addendum entered by Chayo Reno 09/02/23 11:17:
Patient seen bedside, discussed auth approved and transportation scheduled for [facility], 3:00 p.m. IMM signed placed in chart. Update to Alicia at [facility] with transport time.
Original Note:
CM received voicemail from [employer] [facility], auth approved for SNF at [facility] 09/01-09/05, reference number [id number], fax clinical updates to health and social care teacher Mohini Landry at [phone]. CM provided updated to Alicia, Liaison at [facility],
sent TT to Hospitalist. Patient will need transportation set up.
Plan; [facility], will need transportation set up.
[facility]
Report:[phone]
[2023-09-02] MEDS: KCL 40 MEQ PO (08:41)
[2023-09-02] MEDS: LASIX 80 MG PO (08:41)
[2023-09-02] MEDS: MUCINEX 1200 MG PO (08:41)
[2023-09-02] MEDS: ProAmatine 10 MG PO (08:42)
[2023-09-02] MEDS: PROTONIX 40 MG PO (08:42)
[2023-09-02] MEDS: TOPROL XL 37.5 MG PO (08:42)
[2023-09-02] MEDS: TESSALON PERLES 200 MG PO (08:42)
[2023-09-02] MEDS: DEBROX EAR DROPS 1 DROP OTIC (08:42)
[2023-09-02] MEDS: MIRALAX 17 GRAMS PO (08:42)
[2023-09-02] MEDS: ELIQUIS 5 MG PO (08:42)
[2023-09-02] MEDS: ALDACTONE 12.5 MG PO (08:43)
[2023-09-02] MEDS: DESENEX/MITRAZOL/ZEASORB 1 APPLIC TOPICAL (08:48)
[2023-09-02] MEDS: ADVAIR HFA 115/21 MCG INHALER 2 PUFF INH (08:50)
--- NOTE | 2023-09-02 10:48 | W.PN.HOSP.TC ---
Today's Communication/Plan
-
Monitor vital signs and see plan
SNF today
Time of discharge 37 minutes
Assessment / Plan
Assessment / Plan
Gen-AAOx3, NAD
HEENT-NC, AT, anicteric, clear oral mm
Neck-supple
CV-reg, no M, +S1/S2
Lungs-decreased breath sounds bilaterally
Abd-soft, NT, ND
Ext-no edema
Musculoskeletal-no cyanosis, clubbing
Skin-warm and dry
Neuro-grossly non-focal
Psych-calm, cooperative
acute pulmonary edema due to acute on chronic heart failure exacerbation. Cannot rule out a component of COPD exacerbation. On home oxygen at 4 L, currently on 3-4 L of oxygen in the hospital. Admission chest x-ray with pulmonary edema, small
bilateral pleural effusions.
Does have chronic hypoxic respiratory failure, on baseline 4 L
added mucinex;tessalon pearls
Acute on chronic heart failure exacerbation -previously classified as reduced EF but currently with preserved EF exacerbation. Cardiology has changed furosemide to 80 mg p.o. twice daily. She was on 80 mg once daily prior to admission.
Spironolactone added. Weight is down. Most recent echocardiogram was from 07/26/2023 showing LVEF 50 to 55%. Fluid restriction.
Known history of mild to moderate TR, mild , moderate MS.
BNP down to 3210.
Acute COPD exacerbation -mild. Improved. Continue inhalers. No further wheezing. Received 3 days of prednisone. restarted wixella BID
Persistent atrial fibrillation -continue Eliquis. Treated in the past with AV chris ablation and permanent pacemaker. Continue metoprolol.
Chronic hyponatremia -sodium 132. Fluid restriction.
Hypokalemia -replete
Essential hypertension -stable. On midodrine for orthostasis.
History of stroke
Stage 2 sacral pressure injury POA
Hyperlipidemia -on rosuvastatin.
Generalized anxiety disorder
Morbid obesity due to excess calories -had lap band surgery in the past.
Full code
Dsipo: SNF
Anticipated Discharge: Today
Subjective/Interval History
-
Date of Service: September 02, 2023
denies pain
Objective Data
-
Labs:
Laboratory Results
09/02/23
06:56
Sodium 132 L
Potassium 3.8
Chloride 94 L
Carbon Dioxide 33 H
BUN 19 H
Creatinine 0.8
Glucose 112 H
Calcium 9.5
Vital Signs:
Vital Signs
Temp Pulse Resp BP Pulse Ox
97.7 F 70 16 100/86 96
09/02/23 07:30 09/02/23 08:50 09/02/23 08:50 09/02/23 08:43 09/02/23 08:50
I&O
09/01/23 09/02/23 09/03/23
06:59 06:59 06:59
Intake Total 1200 / 1200 1140 / 1140
Balance 1200 / 1200 1140 / 1140
--- NOTE | 2023-09-02 10:56 | W.DCSUMMARY ---
Discharge Summary
Discharge Data
Date of Admission: 08/24/23
Date of Discharge: 09/02/23
-
Pending Results: No
Hospital Course
68-year-old female with past medical history of COPD, persistent atrial fibrillation, essential hypertension, stroke, hyperlipidemia, general anxiety disorder came to the hospital with acute pulmonary edema secondary to congestive heart failure
exacerbation. Patient was initially started on IV Lasix which was later transitioned to oral Lasix. Patient discharge Lasix dose was increased to 80 mg oral twice daily. Echocardiogram was recently done which showed EF of 50 to 55%. It also
appeared that patient might of had mild COPD exacerbation which over time improved. Patient was also evaluated by physical therapy who recommended SNF. Once patient symptoms were improving, she was then discharged to rehab with instructions to
follow-up with all her physicians outpatient.
Discharge Plan
-
Patient Disposition: Home with Home Care
Discharge Diagnosis/Procedures: Acute heart failure exacerbation, COPD exacerbation, hyponatremia
Condition: Fair
Diet: Low Fat, Low Cholesterol and 2 Gram Sodium
Additional Diets: 40 ounce daily fluid restriction
Activity: As tolerated
Driving Restrictions: Not until seen by your Dr
Bathing Restrictions: None
Other Services: VN
Instructions: *CBC Heart Failure Instructions
Referrals:
Luz Costa NP [Specified Professional Personl] - 09/06/23 9:40 am
Qiana Rodriguez MD [Family Provider] - in less than 1 week
Prescriptions:
New
Ear Drops (carbamide peroxide) 6.5 % Drops
1 drp otic (ear) BID Qty: 0 0RF
benzonatate 100 mg Capsule
200 mg PO TID Qty: 0 0RF
pantoprazole 40 mg Tablet,Delayed Release (Dr/Ec)
40 mg PO DAILY Qty: 0 0RF
guaifenesin 600 mg Tablet Extended Release 12hr
1,200 mg PO Q12 Qty: 0 0RF
albuterol sulfate 90 mcg/actuation HFA aerosol inhaler
2 puff inhalation Q6H PRN (Reason: shortness of breath or wheezing) Qty: 6.7 0RF
Continued
montelukast 10 mg Tablet
10 mg PO HS
Eliquis 5 mg Tablet
5 mg PO BID Qty: 60 0RF
polyvinyl alcohol 1.4 % Drops
1 drp BOTH EYES BIDPRN PRN (Reason: dryness)
rosuvastatin 20 mg Tablet
20 mg PO HS
fluticasone propion-salmeterol [Wixela Inhub] 250-50 mcg/dose Blister With Device
2 inh INHALATION R BIDPRN PRN (Reason: SOB)
therapeutic multivitamin Tablet
1 tab PO DAILY Qty: 0
acetaminophen [Tylenol] 325 mg Tablet
650 mg PO BIDPRN PRN (Reason: mild pain)
polyethylene glycol 3350 [HealthyLax] 17 gram Powder In Packet
17 g PO DAILY Qty: 30 0RF
midodrine 5 mg Tablet
10 mg PO BID Qty: 60 0RF
metoprolol succinate 25 mg Tablet Extended Release 24 Hr
37.5 mg PO DAILY Qty: 30 0RF
docusate sodium 100 mg capsule
100 mg PO DAILY PRN (Reason: constipation)
miconazole nitrate [Miconazorb AF] 2 % Powder
1 applic topical BID 30 Days Qty: 85 0RF
potassium chloride 20 mEq tablet extended release
40 meq PO DAILY Qty: 0 0RF
Changed
spironolactone [Aldactone] 25 mg Tablet
12.5 mg PO DAILY Qty: 0 0RF
furosemide [Lasix] 80 mg tablet
80 mg PO BID Qty: 0 0RF
Discontinued
omeprazole 20 mg Capsule,Delayed Release(Dr/Ec)
20 mg PO DAILY
Discharge Orders:
Discharge Patient (As Directed); Ordered 09/02/23
Ordered By: Sal Conway
Discharge Date and Time
Discharge Date/Time: 09/02/23 15:21
Print Language: KAZAKH
[2023-09-02 14:30] VITALS: BP 111/71
== END 2023-09-02 15:21 | DRG 291 ==
LOC: 4 WEST ACU 23:40
PROVIDERS: Emergency Medicine; Internal Medicine; Internal Medicine Cardiovascular Disease; Registered Nurse; ADMITTING PHYSICIAN Hospitalist; ATTENDING PHYSICIAN Internal Medicine; EMERGENCY PHYSICIAN Emergency Medicine; FAMILY PHYSICIAN Family Medicine; OTHER PHYSICIAN Internal Medicine Cardiovascular Disease
DX: I11.0 Hypertensive heart disease with heart failure (principal); J81.0 Acute pulmonary edema; E87.1 Hypo-osmolality and hyponatremia; J44.1 Chronic obstructive pulmonary disease with (acute) exacerbation; J96.11 Chronic respiratory failure with hypoxia; Z68.41 Body mass index [BMI] 40.0-44.9, adult; I50.30 Unspecified diastolic (congestive) heart failure; I95.9 Hypotension, unspecified; E66.01 Morbid (severe) obesity due to excess calories; Z87.891 Personal history of nicotine dependence; Z79.01 Long term (current) use of anticoagulants; E78.00 Pure hypercholesterolemia, unspecified; F41.1 Generalized anxiety disorder; E87.6 Hypokalemia; L89.152 Pressure ulcer of sacral region, stage 2; Z11.52 Encounter for screening for COVID-19
CPT/HCPCS: 71046; 80048; 80053; 80061; 80076; 83735; 83880; 84443; 85025; 85027; 87502; 87811; 93005; 94640; 97116; 97162; 97530; 97535; 99285

== ENCOUNTER 2023-10-12 17:59 | Inpatient (IN) | payer MEDICARE, OTHER, SELFPAY ==
[2023-10-12 15:57] VITALS: BP 140/82; BMI 40.9
[2023-10-12 16:10] LABS: % Basophils 1.2 % (0-2); % Eosinophils 1.9 % (0-6); % Immature Granulocytes 0.6 % (0-0.5); % Lymphocytes 12.3 % (20.5-51.1); % Monocytes 7.1 % (1.7-9.3); % Neutrophils 76.9 % (42.2-75.2); Absolute Basophils 0.1 10^3/uL (0-0.2); Absolute Eosinophils 0.2 10^3/uL (0-0.7); Absolute Immature Granulocytes 0.1 10^3/uL (0-0.05); Absolute Lymphocytes 1.4 10^3/uL (1.2-3.4); Absolute Monocytes 0.8 10^3/uL (0.1-0.6); Absolute Neutrophils 8.4 10^3/uL (1.4-6.5); Mean Corp Hgb Conc. 31.8 g/dL (33.0-37.0); Mean Corpuscular Volume 97.3 fL (81.0-99.0); Mean Platelet Volume 9.2 fL (7.4-10.4); Nucleated Red Blood Cells % 0 %; Platelet Count 345 10^3/uL (130-400); Red Blood Cell Count 4.52 10^6/uL (4.20-5.40); Red Cell Dist. Width 15.4 % (11.5-14.5)
[2023-10-12 16:32] LABS: Blood Urea Nitrogen 11 mg/dl (7-17); Calcium 8.9 mg/dl (8.4-10.2); Carbon Dioxide 25 mmol/L (22-30); Chloride 98 mmol/L (98-107); Estimated Creatinine Clearance 114 ml/min; Glucose 132 mg/dl (70-99); Sodium 133 mmol/L (135-145); eGFR > 60.00
--- NOTE | 2023-10-12 16:47 | ED.GENMED ---
History of Present Illness
General
Chief Complaint: Rectal Bleeding
Source: patient
Exam Limitations: none
Time Seen by Provider: 10/12/23 16:23
Travel History
Have you had any contact with someone who has COVID-19?: No
Do you have any symptoms of coronavirus? Fever > 100 degrees, chills, cough, shortness of breath, sore throat, loss of taste or smell, muscle aches, or headache?: No
History of Present Illness
History of Present Illness:
See MDM
Past History
Past History
ED Past Medical History: Arrthythmia, Asthma, Cancer (breast), CHF, CVA (TIA), HTN, Other (RAMY) and Other (mvp)
ED Past Surgical History: Cardiac, Cholecystectomy, , Tonsilectomy and Other (gall bladder, lymph nodes left breast)
Social History
Tobacco: Non-smoker
Alcohol: None
Drug: None
Personal: Single
Living: with family
Employment: Not employed
Phy Exam
Physical Exam
Physical Exam:
See MDM
Course
Orders/Labs/Results
Orders:
Orders
10/12/23 Dinner
Clear Liquid
At Your Request: Full Participation
Does patient need a safe tray?: No
10/12/23 16:03
Basic Metabolic Panel Urgent
Complete Blood Count/With Diff Urgent
10/12/23 16:40
Pantoprazole 80 mg/100 ml Nss [Protonix] 80 mg in 100 ml IV NOW
Pantoprazole [Protonix IV] 80 mg IV NOW STA
10/12/23 16:43
IV Insert/Care/Rem.- Treatment PRN
10/12/23 17:12
Admit/Transfer Patient As Directed
Co-Sign Provider:
Level of Care: Inpatient admission
Assign to:: Telemetry
Physician / Group: emily
Diagnosis: UGIB
Reason for Telemetry: Pulmonary Edema
Date to Stop Telemetry: 10/15/23
Time to Stop Telemetry: 11:00
Reason for Hospitalization: UGIB
Expected length of stay greater than two midnights?: Yes
ELOS- Estimated Length of Stay in days: 2
I certify the patient meets the requirements for IP care: Yes
Code Status As Directed
Resuscitation Status: Full Code
10/12/23 17:15
CR Chest - 2 Views Urgent
Comment:
Reason For Exam: cough
10/12/23 17:26
PTT Urgent
Prothrombin Time Urgent
Urinalysis Reflex To Culture Urgent
Date Specimen was Collected: 10/12/23
Time Specimen was Collected: 17:02
Urine Microscopic Reflex Cult Urgent
Urine Culture Urgent
ALISTAIR Source: U
Specimen Description:
Date Specimen was Collected: 10/12/23
Time Specimen was Collected: 17:02
10/12/23 19:11
Docusate Sodium [Colace] 100 mg PO DAILY PRN
Polyethylene Glycol Powder [Miralax] 17 grams PO DAILYPRN PRN
10/12/23 19:11
Activity As Directed
Activity Level: As Tolerated
Pneumatic Compression Sleeves As Directed
Type: Knee high
Vital Signs As Directed
Frequency: Per unit guidelines
DX Deep Vein Thrombosis Video Routine
10/12/23 20:00
Fluticasone/Salmeterol 115/21 [Advair Hfa 115/21 Mcg Inhaler] 2 puff INH R BID
Midodrine [ProAmatine] 10 mg PO BID AT 0800,1700
Zinc Oxide 40% [Desitin Maximum Strength Paste] See Dose Instructions TOPICAL BID
10/12/23 22:00
Guaifenesin [Mucinex] 600 mg PO HS
Montelukast Sodium [Singulair] 10 mg PO HS
Rosuvastatin Calcium [Crestor] 20 mg PO HS
10/13/23 03:00
Pantoprazole 80 mg/100 ml Nss [Protonix] 80 mg in 100 ml IV Q10H
10/13/23 04:54
Complete Blood Count/With Diff IN AM
Comprehensive Metabolic Panel IN AM
10/13/23 08:00
Furosemide [Lasix] 80 mg PO DAILY
Multivitamin [Theragran] 1 tablet PO DAILY
Potassium Chloride [KCl] 40 meq PO DAILY
Spironolactone [Aldactone] 25 mg PO DAILY
10/15/23 11:00
DC Protocol for Telemetry ONCE
Abnormal Lab Results
10/12/23 10/12/23
16:03 17:26
WBC 11.0 H 10^3/uL
(4.8-10.8)
MCHC 31.8 L g/dL
(33.0-37.0)
RDW 15.4 H %
(11.5-14.5)
Abs Immat Gran (auto) 0.1 H 10^3/uL
(0-0.05)
Absolute Neuts (auto) 8.4 H 10^3/uL
(1.4-6.5)
Absolute Monos (auto) 0.8 H 10^3/uL
(0.1-0.6)
Immature Gran % 0.6 H %
(0-0.5)
Neutrophils % 76.9 H %
(42.2-75.2)
Lymphocytes % 12.3 L %
(20.5-51.1)
PT 25.4 H Sec
(11.4-14.6)
Sodium 133 L mmol/L
(135-145)
Glucose 132 H mg/dl
(70-99)
Ur Occult Blood Reflex 4+ A
(Negative)
Leukocyte Esterase Rfl Trace A
(Negative)
Urine RBC 26-30 A /HPF
(0-2)
Urine WBC (Reflex) 21-25 A /HPF
(0-5)
Urine Bacteria (Reflex) Few A
(Negative)
10/12/23 16:03
10/12/23 16:03
Vital Signs
Initial and Last Documented VS:
Initial Vital Signs
Temp Pulse Resp BP
98 F 71 19 140/82
10/12/23 15:57 10/12/23 15:57 10/12/23 15:57 10/12/23 15:57
Last Documented Vital Signs
Temp Pulse Resp BP Pulse Ox
98.7 F 71 19 104/51 92
10/14/23 04:00 10/14/23 03:40 10/14/23 03:40 10/14/23 03:40 10/14/23 03:40
MDM/Problems Addressed
Differential Diagnosis Includes:
HPI and MDM Narrative:
68-year-old female presenting with several days of black stools. She is on Eliquis and her last dose was this morning. She was sent in for evaluation for upper GI bleeding. She denies any current abdominal pain. She does admit to frequent
nosebleeds. Patient also concerning about blood when she urinates but denies pain when she urinates. Patient has been dealing with constipation for the past several days as well.
On exam, she is well-appearing and nontoxic. Rectal exam showed no active bleeding. There was dried brown stool that was guaiac negative
Given Eliquis and history of multiple days of black stools, will admit on PPI drip with impression of slow upper GI bleeding versus ingested blood from nosebleed. Urinalysis pending
Physical exam
General: Well appearing and non-toxic
HEENT: protecting airway
Neck: appears supple
CV: No evidence of cyanosis
Resp: No accessory muscle use
Abd: Non-distended and nontender
Rectal: Brown stool guaiac
Extremities: No deformities
Neuro: alert
Psych: Normal affect
Skin: Intact
Problems Addressed including Acute and Chronic Conditions affecting care:
1. Upper GI bleed
Acuity: acute
Prognosis: stable
Details: Will start PPI drip. Will admit for hemoglobin trending
2. Hematuria
Acuity: acute
Prognosis: stable
Details: Will obtain urinalysis looking for evidence of hemorrhagic cystitis
Updates
Differential Diagnosis (but not limited to): Hemorrhagic cystitis, upper GI bleeding, ingested blood
Testing considered: CT abdomen/pelvis but no tenderness elicited
Drug therapy (if applicable): OTC meds, please see d/c instruction regarding Rx drugs
Amount and/or Complexity of Data Reviewed
Clinical info obtained from: Patient
External data reviewed: N/A
Labs I independently reviewed (but not limited to): Hemoglobin stable
Radiology: N/A
Pulse Ox: not hypoxic
EKG independently reviewed: N/A
Income Tax Consultant: N/A
Critical Care: N/A
Risk of Complication:
Social Determinants of health: Good social support
Discussed with other providers: Hospitalist
Escalation of Care includes Admit/Obs: Given the concern for upper GI bleeding while on Eliquis, will admit
Occasional wrong word or 'sound a like' substitutions may have occurred due to the inherent limitations of voice recognition software. Read the chart carefully and recognize, using context, where substitutions have occurred.
*Critical Care Note
Total Time (30-74mins, 75-104mins- exclusive of procedures): Not Applicable
ED Attending Note
-
Portions of this chart may have been created with voice recognition software.� Occasional wrong word or��sound alike� substitutions may have occurred due to the inherent limitations of voice recognition software.
Discharge Plan
Departure
Patient Disposition: Admit
Date of Disposition: 10/12/23
Time of Disposition: 16:53
Admit to: Telemetry
Presentation/result/management discussed w/ accepting MD/DO: Hospitalist
Discharge Problem:
UGIB (upper gastrointestinal bleed), Hematuria
Interventions
Interventions:
*Risk Screen - Suicide Last Done: 10/12/23 15:59
*General Assessment Last Done: 10/12/23 15:59
*Neglect/Abuse Screening Last Done: 10/12/23 15:59
ED- Fall Risk Assessment Last Done: 10/12/23 18:27
*ED COVID-19 Vaccine History Last Done: 10/12/23 15:59
*Nursing Disposition Last Done: 10/12/23 18:27
OE-Hmgqov-Bxydpdvesp Assessment Last Done: 10/12/23 16:15
ED- Cardiac Assessment Last Done: 10/12/23 16:15
ED- Pulmonary Assessment Last Done: 10/12/23 16:15
Discharge Date and Time
Discharge Date/Time: 10/12/23 18:27
[2023-10-12] MEDS: PROTONIX IV 80 MG IV (16:57)
[2023-10-12] MEDS: PROTONIX 100 IV (16:59)
--- NOTE | 2023-10-12 17:18 | HPS.HSE ---
Addendum entered and electronically signed by Laura Sánchez MD 10/12/23 18:56:
Started ceftriaxone for UTI.
Original Note:
Family Physician
-
Family Physician: Qiana Rodriguez
Chief Complaint
-
fatigue, black stool
History of Present Illness
58-year-old female past medical history of paroxysmal atrial fibrillation on Eliquis, HFrEF on 2 L at nighttime, hypertension, allergic asthma, hyponatremia, suspected sleep apnea, morbid obesity, breast cancer, prior stroke, hyperlipidemia
presenting with complaints of fatigue for the past few weeks as well as jet black stool over this time. She used to have a bowel movement every day but now has been constipated and having a bowel movement every 4 days despite taking MiraLAX,
docusate. She sometimes gets a pain in the suprapubic region that radiates to her back which improves after taking a bowel movement. She is also noted that her urine has been darker and occasionally blood tinged. She makes a lot of urine at
baseline due to taking diuretics. She occasionally has mild burning.
She has been having a productive cough for the past few weeks with slight shortness of breath. She denies postnasal drip. She denies any fevers but occasionally has chills. She denies chest pain. She denies any weight gain and in fact has lost
weight.
Her cardiology is Dr. Montes who she saw a few weeks ago and he noted that her blood pressure was low and so he stopped metoprolol.
Patient had a right nostril nosebleed yesterday which resolved with pressure. She had a nosebleed 3 weeks ago which she occasionally gets due to nasal oxygen.
She denies alcohol. She is a former smoker.
Medical History
Past Medical History
Past Medical History: Reports Other ( paroxysmal atrial fibrillation on Eliquis, HFrEF on 2 L at nighttime, hypertension, allergic asthma, hyponatremia, suspected sleep apnea, morbid obesity, breast cancer, prior stroke, hyperlipidemia)
Past Surgical History: Reports Other (Cardiac, Cholecystectomy, , Tonsilectomy and Other (gall bladder, lymph nodes left breast))
Social History
Tobacco: Former Smoker
Alcohol: None
Drug: None
Family History
Family History: Not pertinent
Allergies / Home Medications
Allergies reflects when Allergies were last updated in [email or web address].
Home Medications with original date entered in [email or web address]
Allergy/Medication List:
Allergies
Allergy/AdvReac Type Severity Reaction Status Date / Time
codeine Allergy 'loopy' Verified 08/24/23 20:37
Home Medications
montelukast 10 mg tablet 10 mg PO HS Lung/breathing issues 06/23/22
apixaban 5 mg tablet (Eliquis) 5 mg PO BID #60 tabs 07/01/22
rosuvastatin 20 mg tablet 20 mg PO HS High Cholesterol 02/17/23
fluticasone 250 mcg-salmeterol 50 mcg/dose blistr powdr for inhalation (Wixela Inhub) 2 inh inhalation R BID 02/22/23
therapeutic multivitamin 1 tab PO DAILY Supplement ##0 04/16/23
docusate sodium 100 mg capsule 100 mg PO DAILY PRN constipation 08/02/23
pantoprazole 40 mg tablet,delayed release 40 mg PO DAILY #0 tabs 09/02/23
potassium chloride 20 mEq tablet,extended release 40 meq (2 x 20 mEq) PO DAILY #0 tabs 09/02/23
furosemide 80 mg tablet (Lasix) 80 mg PO DAILY Fluid retention/Swelling 10/12/23
guaifenesin 600 mg tablet, extended release 12 hr 600 mg PO HS 10/12/23
midodrine 10 mg tablet 10 mg PO BID 10/12/23
polyethylene glycol 3350 17 gram oral powder packet (HealthyLax) 17 g PO DAILYPRN PRN constipation 10/12/23
spironolactone 25 mg tablet (Aldactone) 25 mg PO DAILY Fluid Retention/Swelling 10/12/23
zinc oxide-cod liver oil 40 % topical paste (Desitin) 1 applic topical BID 10/12/23
Review of Systems
-
History Source: Patient
A 12 point ROS was completed and negative except as noted: Yes
Constitutional: Reports No Symptoms
EENT: Reports No Symptoms
Respiratory: Reports See HPI
Cardiac: Reports See HPI
Abdomen/GI: Reports See HPI
: Reports No Symptoms
Musculoskeletal: Reports No Symptoms
Skin: Reports No Symptoms
Neurological: Reports No Symptoms
Endocrine: Reports No Symptoms
Hematologic/Lymphatic: Reports No Symptoms
Psych: Reports No Symptoms
Physical Exam
Vital Signs
Vital Signs
Temp Pulse Resp BP Pulse Ox
98 F 71 18 140/82 93
10/12/23 15:57 10/12/23 17:00 10/12/23 17:00 10/12/23 15:57 10/12/23 17:00
Physical Exam
General: Well Developed, Well Nourished and No Apparent Distress
HEENT: NormoCephalic, Moist mucous membranes and Atraumatic
Respiratory: Rales (bilateral lower lobes )
Cardiac: S1/S2 and Regular Rhythm; No Murmur or Rub
GI: Soft, Non Tender, Non Distended and Normal Bowel Sounds; No Organomegaly
Rectal: Deferred by Provider
Musculoskeletal: No Clubbing, No Cyanosis and No Edema
Skin: No Rash
Neuro: Nonfocal/grossly intact
Laboratory Results
-
10/12/23 16:03
10/12/23 16:03
Laboratory Results
Total Bilirubin Cancelled 10/12/23 16:03
AST Cancelled 10/12/23 16:03
ALT Cancelled 10/12/23 16:03
Alkaline Phosphatase Cancelled 10/12/23 16:03
Data Reviewed
-
Lab Data: Labs Reviewed by me
Old Records: Reviewed
Impression/Plan
-
IMPRESSION:
PLAN:
# Melena secondary to upper GI bleeding versus less likely epistaxis exacerbated by Eliquis
-Patient has only had 2 episodes of epistaxis in the last few weeks, unlikely to explain melena
-Hemoglobin 14
-Hold Eliquis
-Protonix drip
-Clear liquid diet
-GI consulted
# Productive cough
-Slight lower lobe crackles bilaterally
-Check chest x-ray
-Continue guaifenesin
# Abdominal pain possible UTI vs secondary to constipation
-She is tender in the suprapubic region and given dark urine suspect UTI
-Check urinalysis
# Constipation
-Continue MiraLAX, docusate
# Recent epistaxis
-Most recently yesterday from right nostril, now resolved
Paroxysmal atrial fibrillation
-Hold Eliquis
Chronic HFrEF on 2 L at nighttime
-Continue Lasix
-Continue spironolactone
Essential hypertension
History of hypotension
-Continue midodrine
Allergic asthma
-Continue inhalers
-Continue montelukast
Chronic hyponatremia
Suspected obstructive sleep apnea
Obesity
Breast cancer
Prior CVA
Hyperlipidemia
-Continue statin
Full code
DVT prophylaxis�SCDs
Clear liquid diet
[2023-10-12 17:54] LABS: Urine Albumin Negative (Neg - Trace); Urine Bilirubin Negative (Negative); Urine Character Clear (Clear); Urine Color Yellow; Urine Glucose Negative (Negative); Urine Ketone Negative (Negative); Urine Leukocyte Trace (Negative); Urine Nitrite Negative (Negative); Urine Occult Blood 4+ (Negative); Urine Urobilinogen Negative (Neg - 1+)
[2023-10-12 18:00] VITALS: BP 121/74
[2023-10-12 18:15] LABS: APTT 31.2 Sec (23.4-35.0); INR 2.32; PT 25.4 Sec (11.4-14.6)
[2023-10-12 18:34] LABS: Urine Bacteria Few (Negative); Urine Red Blood Cell 26-30 /HPF (0-2); Urine White Cell 21-25 /HPF (0-5)
[2023-10-12 18:45] VITALS: BP 124/75; BMI 40.5
[2023-10-12] MEDS: ADVAIR HFA 115/21 MCG INHALER 2 PUFF INH (21:26)
[2023-10-12 21:43] VITALS: BMI 40.5
[2023-10-12] MEDS: ProAmatine 10 MG PO (22:28)
[2023-10-12] MEDS: STERILE WATER FOR INJECTION 10 ML IV (22:29)
[2023-10-12] MEDS: MUCINEX 600 MG PO (22:29)
[2023-10-12] MEDS: SINGULAIR 10 MG PO (22:29)
[2023-10-12] MEDS: CRESTOR 20 MG PO (22:29)
[2023-10-12] MEDS: DESITIN MAXIMUM STRENGTH PASTE TOPICAL (22:30)
[2023-10-12] MEDS: ROCEPHIN 1000 MG IV (22:30)
[2023-10-12 23:46] VITALS: BP 107/65
--- NOTE | 2023-10-13 02:31 | PTCARENOTE ---
Pt received from ER [facility] able to make her needs known. Denies pain. Pt oriented to room & call simon in reach.IV protonix drip continued as ordered. No pther complaints noted.Pt able to move herself around in bed. Plan of care continued.
[2023-10-13] MEDS: PROTONIX 100 IV ×2 (02:43→12:57)
[2023-10-13 03:19] VITALS: BP 108/60
[2023-10-13 05:54] LABS: % Basophils 1.2 % (0-2); % Eosinophils 3.5 % (0-6); % Immature Granulocytes 0.5 % (0-0.5); % Lymphocytes 14.2 % (20.5-51.1); % Monocytes 6.9 % (1.7-9.3); % Neutrophils 73.7 % (42.2-75.2); Absolute Basophils 0.1 10^3/uL (0-0.2); Absolute Eosinophils 0.4 10^3/uL (0-0.7); Absolute Immature Granulocytes 0.1 10^3/uL (0-0.05); Absolute Lymphocytes 1.5 10^3/uL (1.2-3.4); Absolute Monocytes 0.7 10^3/uL (0.1-0.6); Absolute Neutrophils 7.7 10^3/uL (1.4-6.5); Hematocrit 40.1 % (37.0-47.0); Mean Corp Hgb Conc. 32.4 g/dL (33.0-37.0); Mean Corpuscular Hgb 30.9 pg (27.0-31.0); Mean Corpuscular Volume 95.2 fL (81.0-99.0); Mean Platelet Volume 9.7 fL (7.4-10.4); Nucleated Red Blood Cells % 0 %; Platelet Count 332 10^3/uL (130-400); Red Blood Cell Count 4.21 10^6/uL (4.20-5.40); Red Cell Dist. Width 15.4 % (11.5-14.5); White Blood Cell Count 10.4 10^3/uL (4.8-10.8)
[2023-10-13 06:00] VITALS: BMI 40.1
[2023-10-13 06:09] LABS: ALT (SGPT) < 10 U/L (0-35); AST (SGOT) 18 U/L (14-36); Albumin 2.7 g/dl (3.5-5.0); Alkaline Phosphatase 95 U/L (38-126); Blood Urea Nitrogen 10 mg/dl (7-17); Calcium 8.7 mg/dl (8.4-10.2); Carbon Dioxide 26 mmol/L (22-30); Chloride 99 mmol/L (98-107); Estimated Creatinine Clearance 113 ml/min; Glucose 100 mg/dl (70-99); Sodium 134 mmol/L (135-145); Total Bilirubin 1.7 mg/dl (0.2-1.3); Total Protein 6.6 g/dl (6.3-8.2); eGFR > 60.00
[2023-10-13 07:05] VITALS: BP 95/54
[2023-10-13] MEDS: ADVAIR HFA 115/21 MCG INHALER 2 PUFF INH (07:51)
[2023-10-13] MEDS: THERAGRAN 1 TABLET PO (08:37)
[2023-10-13] MEDS: ProAmatine 10 MG PO ×2 (08:37→18:07)
[2023-10-13] MEDS: LASIX 80 MG PO (08:37)
[2023-10-13] MEDS: ALDACTONE 25 MG PO (08:38)
[2023-10-13] MEDS: DESITIN MAXIMUM STRENGTH PASTE 1 APPLIC TOPICAL ×2 (08:38→21:27)
[2023-10-13] MEDS: KCL 40 MEQ PO (08:49)
[2023-10-13] MEDS: KCL PO (08:50)
--- NOTE | 2023-10-13 10:07 | VNURNOTE ---
Chart reviewed. [facility] placed in [facility] under 'saved' status. Will follow hospital course.
[2023-10-13 11:38] VITALS: BP 110/52
--- NOTE | 2023-10-13 12:26 | W.PN.HOSP.TC ---
Today's Communication/Plan
-
axr
ucx in lab-abx for now
GI recs
holding eliquis
Assessment / Plan
Assessment / Plan
# Melena secondary to suspected upper GI bleeding versus less likely epistaxis exacerbated by Eliquis
-Patient has only had 2 episodes of epistaxis in the last few weeks, unlikely to explain melena
-Hemoglobin at 13. No bowel movements since admission.
-AXR pending
-If with active bleeding check CTA abd/pelvis
-Hold Eliquis
-Protonix drip
-Clear liquid diet
-GI consulted
# Productive cough
-Slight lower lobe crackles bilaterally
-cxr Negative
-Continue guaifenesin
# Abdominal pain possible e.coli UTI vs secondary to constipation
-She is tender in the suprapubic region and given dark urine suspect UTI
-Pending susceptibility. Continue ceftriaxone.
-check axr
# Constipation
-Continue MiraLAX, docusate
# Recent epistaxis
-Most recently yesterday from right nostril, now resolved
Paroxysmal atrial fibrillation
-Hold Eliquis
Chronic HFrEF on 2 L at nighttime
Chronic hypoxic resp insufficiency
-Continue Lasix
-Continue spironolactone
Essential hypertension
History of hypotension
-Continue midodrine
Allergic asthma
-Continue inhalers
-Continue montelukast
Chronic hyponatremia
Suspected obstructive sleep apnea
Obesity
Breast cancer
Prior CVA
Hyperlipidemia
-Continue statin
Hypokalemia-replete/monitor
Full code
DVT prophylaxis�SCDs
Anticipated Discharge: > 48 hours
Subjective/Interval History
-
Date of Service: October 13, 2023
no bowel movements
eating clears
no abd pain
Objective Data
-
Labs:
Laboratory Results
10/13/23
04:54
WBC 10.4
Hgb 13.0
Hct 40.1
Plt Count 332
Sodium 134 L
Potassium 3.0 L
Chloride 99
Carbon Dioxide 26
BUN 10
Creatinine 0.6
Glucose 100 H
Calcium 8.7
Total Bilirubin 1.7 H
AST 18
ALT < 10
Alkaline Phosphatase 95
Vital Signs:
Vital Signs
Temp Pulse Resp BP Pulse Ox
98.4 F 72 20 110/52 93
10/13/23 11:38 10/13/23 11:38 10/13/23 11:38 10/13/23 11:38 10/13/23 11:38
Physical Exam
-
General: Well Developed, Well Nourished, Comfortable and Morbidly Obese
HEENT: Normocephalic, Atraumatic and Oxygen (nc )
Respiratory: Clear to Auscultation and Non Labored Respirations; Negative Wheezes or Accessory Resp Muscle Use
Cardiac: Regular Rhythm and S1/S2
GI: Soft, Nontender, Nondistended and Normal Bowel Sounds
Musculoskeletal: No Clubbing and No Cyanosis
Skin: Warm
Neuro: Awake, Alert, Oriented and AO x 3
Psych: Calm and Intact Judgement/Insight
Data Reviewed
-
Total Time Spent with Patient (in minutes): 55
[2023-10-13 15:20] VITALS: BP 97/54
--- NOTE | 2023-10-13 17:15 | CON.GI ---
Addendum entered and electronically signed by Clarita Anaya MD 10/13/23 20:54:
Pt is a 68 ylo with cardiac hx on eliquis, lap band, hx of self limited colitis, with weight loss, change in bowel pattern, dark stool, prior iron def anemia. hgb normal but had been iron def and was supposed to have egd/colon which was scheduled
in 2 weeks
abd: soft nontender
inr: 2.3
impression
hx of colitis
hx of iron def
weight loss
melena
plan
recheck INR
EGD and colonoscopy
monitor hgb
Addendum entered and electronically signed by Nabila Contreras NP 10/13/23 17:54:
It may be beneficial to have cardiology clear her for procedures given her CHF history. Will review with the primary team.
Original Note:
Consultation
-
Date/Time Consultation Requested: 10/13/23
Date/Time Consultation Performed: 10/13/23 @ 16:30
Requesting Provider: Dr. Sánchez
Performing Provider: ZAKI Lim; Dr. Clarita Anaya
Reason for Consultation: melena,
Medical History
Chief Complaint / HPI
Chief Complaint: fatigue, black stool
History of Present Illness:
The patient is a 68-year-old female with a complex past medical history significant for atrial fibrillation on Eliquis, heart failure with reduced ejection fraction with EF of 50 to 55% on most recent echo, sick sinus syndrome status post pacemaker
placement with revision, history of breast cancer status postlumpectomy, lymph node dissection, with chemotherapy and radiation, obesity with history of gastric bypass with lap band done out of [place], CVA with minimal left-sided residual
weakness, sleep apnea, GERD, anxiety/depression, ROYA thrombus, obesity, asthma, chronic O2, who presented to the emergency room with complaints of fatigue and melena. We are being asked to evaluate for the presenting symptoms for concern of
possible GI bleed. Upon review of prior records, the patient has been seen in the office with Dr. Benjamin back in 2019. At that time had some mild iron deficiency anemia and was advised to undergo a colonoscopy and EGD. Due to COVID this was
deferred, and she notes that she did have a Cologuard in 2020 which was subsequently negative. She most recently was seen by our group in the hospital in May where she was diagnosed with colitis. CT imaging at that time showed colitis of the
ascending colon and terminal ileitis with, with findings that cannot exclude an underlying mass. There are also findings of pulmonary nodules up to 2.4 cm. Stool studies were unrevealing at that time. She was placed on a 10-day course of
antibiotics, and low residue diet advised to follow-up outpatient with GI. She also had a UA and UC which was thought to be accounting for some of her abdominal pain at that time. She was set up for a colonoscopy with Dr. Benjamin in August but had to
cancel her procedure due to being hospitalized for congestive heart failure. Of note she has had recurrent admissions over the past few months for ongoing cardiac and pulmonary issues.
Today she reports that she has been having jet black stool as of recently. She notes progressive fatigue as well. She reports that she has also had a change of bowel habits, as of several months ago with onset of constipation. She notes that when
she gets significantly constipated going more than a few days without a bowel movement she develops right lower quadrant discomfort which prompts her to take fiber Gummies and Metamucil which then eventually will give her a bowel movement. She
notes that she is moving her bowels on average every 4 days or so and describes them as [place] stool chart 1 and 2. She notes prior to this onset she was moving her bowels every day without any problems. She denies any hematochezia or bright red
blood per rectum but as above reports her stool has been black. She denies any new medications. She also admits to loss of appetite with about 100 pounds of weight loss over the past year. She does attribute part of this to diuretics and changes
in her diet but has lost her appetite over the past few months. She denies any nausea or vomiting. She does have occasional heartburn and takes pantoprazole for this. She denies any chest pain or shortness of breath. She denies any use of
NSAIDs. She is on Eliquis with her last dose on 10/11 in the morning. Her last colonoscopy was somewhere between 5 and 10 years ago out of [place]. Her last EGD was done in 2013 showing antral erosions. She notes she did have a gastric bypass
surgery with lap band done at [place] which required revisions after having chemotherapy for her breast cancer. She feels that this is currently ineffective. On admission she did undergo an abdominal x-ray which showed a nonobstructive bowel gas
pattern with no free air. Urinalysis did show findings concerning for a UTI and urine culture was positive for E. coli. She was placed on ceftriaxone 1 g every 24 hours IV. She was also placed on a PPI drip given the concern for melena and
possible GI bleed. On admission her hemoglobin was 14.0, with repeat labs today at 13.0. Her platelets are normal. Her INR is elevated at 2.32. Other pertinent lab findings include sodium 134, potassium 3.0, BUN 10, creatinine 0.6, total
bilirubin 1.7, AST 18, ALT less than 10, alk phos 95, albumin 2.7. She is being admitted for further evaluation by GI and management of her UTI.
Past Medical History
Past Medical History: Arrhythmias (afib on eliquis), Asthma, Cancer (breast cancer s/p chemo, XRT, lymph node resection, lumpectomy), CHF (EF 50-55%), CVA (minimal left sided weakness), HTN, Hypercholesterolemia and Other (chronic hyponatremia,
chronic O2, lung nodules, colitis)
Past Surgical History: Cholecystectomy, , Tonsilectomy and Other (gastric bypass with lap band and revision, lymph node resection)
Social History
Tobacco: Former Smoker
Alcohol: None
Drug: None
Family History
Family History: Reviewed & Not Pertinent
Allergies / Home Medications
Allergy/AdvReac Type Severity Reaction Status Date / Time
codeine Allergy 'loopy' Verified 08/24/23 20:37
�Medication �Instructions �Recorded
montelukast 10 mg tablet 10 mg PO HS Lung/breathing issues 06/23/22
apixaban 5 mg tablet (Eliquis) 5 mg PO BID #60 tabs 07/01/22
rosuvastatin 20 mg tablet 20 mg PO HS High Cholesterol 02/17/23
fluticasone 250 mcg-salmeterol 50 2 inh inhalation R BID 02/22/23
mcg/dose blistr powdr for
inhalation (Wixela Inhub)
therapeutic multivitamin 1 tab PO DAILY Supplement ##0 04/16/23
docusate sodium 100 mg capsule 100 mg PO DAILY PRN constipation 08/02/23
pantoprazole 40 mg tablet,delayed 40 mg PO DAILY #0 tabs 09/02/23
release
potassium chloride 20 mEq 40 meq (2 x 20 mEq) PO DAILY #0 09/02/23
tablet,extended release tabs
furosemide 80 mg tablet (Lasix) 80 mg PO DAILY Fluid 10/12/23
retention/Swelling
guaifenesin 600 mg tablet, 600 mg PO HS 10/12/23
extended release 12 hr
midodrine 10 mg tablet 10 mg PO BID 10/12/23
polyethylene glycol 3350 17 gram 17 g PO DAILYPRN PRN constipation 10/12/23
oral powder packet (HealthyLax)
spironolactone 25 mg tablet 25 mg PO DAILY Fluid 10/12/23
(Aldactone) Retention/Swelling
zinc oxide-cod liver oil 40 % 1 applic topical BID 10/12/23
topical paste (Desitin)
Review of Systems
-
History Source: Patient
Constitutional: Reports Weight Loss
EENT: Reports No Symptoms
Respiratory: Reports No Symptoms and Other (chronic O2)
Cardiac: Reports No Symptoms
Abdomen/GI: Reports Abdominal Pain, Constipated, Black Stools and Other (loss of appetite)
: Reports No Symptoms
Musculoskeletal: Reports No Symptoms
Skin: Reports No Symptoms
Neurological: Reports No Symptoms
Endocrine: Reports No Symptoms
Vital Signs
Temp Pulse Resp BP Pulse Ox
97.8 F 79 16 97/54 94
10/13/23 15:20 10/13/23 15:20 10/13/23 15:20 10/13/23 15:20 10/13/23 15:20
Physical Exam
Exam
General: Well Developed, No Apparent Distress and Other (pale, elderly appearing female in NAD)
HEENT: Normocephalic, Anicteric and Atraumatic
Respiratory: Clear, Non Labored Respirations and Other (supplemental O2)
Cardiac: S1/S2 and Regular Rhythm
Breast: Deferred by me
GI: Soft, Non Distended, Normal Bowel Sounds and Tender (RLQ)
Rectal: Other (brown heme negative per ER)
Musculoskeletal: No Edema
Skin: Warm and Dry
Neuro: Awake, Alert and Oriented
Psych: Calm
Results
WBC 10.4 10^3/uL (4.8-10.8) 10/13/23 04:54
Hgb 13.0 g/dL (12.0-16.0) 10/13/23 04:54
Hct 40.1 % (37.0-47.0) 10/13/23 04:54
MCV 95.2 fL (81.0-99.0) 10/13/23 04:54
Plt Count 332 10^3/uL (130-400) 10/13/23 04:54
Absolute Neuts (auto) 7.7 10^3/uL (1.4-6.5) H 10/13/23 04:54
PT 25.4 Sec (11.4-14.6) H 10/12/23 17:26
INR 2.32 10/12/23 17:26
APTT 31.2 Sec (23.4-35.0) 10/12/23 17:26
Sodium 134 mmol/L (135-145) L 10/13/23 04:54
Potassium 3.0 mmol/L (3.5-5.1) L 10/13/23 04:54
Chloride 99 mmol/L (98-107) 10/13/23 04:54
Carbon Dioxide 26 mmol/L (22-30) 10/13/23 04:54
BUN 10 mg/dl (7-17) 10/13/23 04:54
Creatinine 0.6 mg/dL (0.6-1.0) 10/13/23 04:54
Calcium 8.7 mg/dl (8.4-10.2) 10/13/23 04:54
Total Bilirubin 1.7 mg/dl (0.2-1.3) H 10/13/23 04:54
AST 18 U/L (14-36) 10/13/23 04:54
ALT < 10 U/L (0-35) 10/13/23 04:54
Alkaline Phosphatase 95 U/L (38-126) 10/13/23 04:54
Diagnostic Image Results:
10/13/23 XR abdomen: Nonobstructive bowel gas pattern. No free air.
Prior GI Procedures:
EGD: 09/07/13 Dr. Hall: Normal 2nd part of the duodenum. Biopsied. Gastritis. Biopsied. Hiatus hernia. Z-line irregular,. Biopsied. Normal middle third of esophagus. Biopsied. path showing chronic gastritis, negative for h pylori, celiac, dillon's
Colonoscopy: 5-10 years ago in [place]. hx polyps (report not available to me)
Assessment / Plan
-
The patient is a 68-year-old female with a complex past medical history significant for atrial fibrillation on Eliquis, heart failure with reduced ejection fraction with EF of 50 to 55% on most recent echo, sick sinus syndrome status post pacemaker
placement with revision, history of breast cancer status postlumpectomy, lymph node dissection, with chemotherapy and radiation, obesity with history of gastric bypass with lap band done out of [place], CVA with minimal left-sided residual
weakness, sleep apnea, GERD, anxiety/depression, ROYA thrombus, obesity, asthma, chronic O2, who presented to the emergency room with complaints of fatigue and melena. We are being asked to evaluate for the presenting symptoms for concern of
possible GI bleed. Noted history above, with multiple hospitalizations over the past year for heart failure. She was also admitted in May with an episode of colitis. She was recommended colonoscopy at that time after 6 to 8 weeks to allow for
healing but had to cancel her colonoscopy due to a recurrent hospital admission. She has been having ongoing weight loss along with intermittent melena along with new onset of constipation over the past few months. She is on Eliquis which has been
held, with her last dose on 10/11. She is hemodynamically stable with a stable hemoglobin of 13.0 with no active signs of bleeding currently. Prior EGD in 2013 showed gastritis otherwise normal. Her last colonoscopy was done within the last 5-10
years in [place], with hx of polyps. She is being treated for a UTI in which urine culture showed E. coli.
Problem list:
-Black stool, brown heme-negative in the ER
-Abdominal pain
-Constipation
-History of gastric bypass with lap band
-Weight loss, loss of appetite
-History of A-fib on Eliquis, last dose taken on 10/11 in the AM
-Heart failure with reduced ejection fraction, most recent echo showing 50 to 55% EF
-Elevated INR
-Leukocytosis, resolved
-Hypokalemia
-Elevated bilirubin, appears chronic
Other pertinent medical history:
-Asthma
-Chronic oxygen
-Chronic hyponatremia
-Obesity
-History of breast cancer status postchemotherapy and radiation with lymph node dissection and lumpectomy
-CVA with minimal left-sided weakness
-Hyperlipidemia
-Hypertension
Recommendations:
-Etiology of current symptoms possibly related to constipation v occult GI process (polyps, malignancy) v other. She had brown heme-negative stool in the emergency room and her hemoglobin has been stable, suggesting this to be unlikely acute blood
loss.
-Her abdominal pain may be secondary to her UTI v constipation. She is having a bowel movement every 4 days. Would start on a bowel regimen with docusate/senna and MiraLAX twice daily
---XR of the abdomen showed no obstruction.
-Given her ongoing symptoms and weight loss, would proceed with EGD and colonoscopy for further evaluation. Discussed with Dr. Anaya, and tentatively will schedule this for Wednesday with prep over the next few days.
-Can give full liquid diet today and clears tomorrow (no red)
-Continue to hold Eliquis
-Will change to twice daily twice daily IV
-Continue to monitor hemoglobin and monitor stool output
-If any overt signs of bleeding would consider CTA imaging versus more urgent procedures but currently she is stable with no signs of bleeding
-To consider CT imaging of the abdomen and pelvis given her weight loss
-Avoid NSAIDs
-Management for UTI as per the hospitalist
-Further plan pending above
-
-
Thank you for consultation and allowing me to participate in the patient's care. Please call the union representative GI physician during the after hours with any questions or concerns.
--- NOTE | 2023-10-13 17:21 | CM ---
Luciana lives alone in a 1 level home that is W/C accessible;she has been fairly (I) amb and adls despite being w/c bound. She lives at [facility] where he has friends and neighbors who help her as needed. Luciana has previously been
in SNF at [facility] and more recently at [facility] (August 2023).
Luciana is known to [facility] and will resume services at discharge.
CM to follow to facilitate needs identified prior to discharge. Will refer back to [facility] at discharge.
Plan: Return home with [facility].
PCP: Qiana Rodriguez [phone]
[2023-10-13] MEDS: ADVAIR HFA 115/21 MCG INHALER INH (19:40)
[2023-10-13 19:55] VITALS: BP 110/67
[2023-10-13] MEDS: NSS (PRESERVATIVE FREE) 10 ML IV (21:24)
[2023-10-13] MEDS: PROTONIX IV 40 MG IV (21:24)
[2023-10-13] MEDS: STERILE WATER FOR INJECTION 10 ML IV (21:27)
[2023-10-13] MEDS: MIRALAX 17 GRAMS PO (21:27)
[2023-10-13] MEDS: ROCEPHIN 1000 MG IV (21:28)
[2023-10-13] MEDS: SINGULAIR 10 MG PO (21:31)
[2023-10-13] MEDS: CRESTOR 20 MG PO (21:31)
[2023-10-13] MEDS: MUCINEX 600 MG PO (21:31)
[2023-10-13 23:53] VITALS: BP 117/73
[2023-10-14] VITALS (8 sets, daily range): BP systolic 91–142; BP diastolic 51–80; BMI 40.4
[2023-10-14 05:36] LABS: % Basophils 1.2 % (0-2); % Eosinophils 4.5 % (0-6); % Immature Granulocytes 0.6 % (0-0.5); % Lymphocytes 11.8 % (20.5-51.1); % Monocytes 7.2 % (1.7-9.3); % Neutrophils 74.7 % (42.2-75.2); Absolute Basophils 0.1 10^3/uL (0-0.2); Absolute Eosinophils 0.5 10^3/uL (0-0.7); Absolute Immature Granulocytes 0.1 10^3/uL (0-0.05); Absolute Lymphocytes 1.2 10^3/uL (1.2-3.4); Absolute Monocytes 0.8 10^3/uL (0.1-0.6); Absolute Neutrophils 7.8 10^3/uL (1.4-6.5); Hematocrit 39.8 % (37.0-47.0); Hemoglobin 12.9 g/dL (12.0-16.0); Mean Corp Hgb Conc. 32.4 g/dL (33.0-37.0); Mean Corpuscular Hgb 30.8 pg (27.0-31.0); Mean Platelet Volume 9.7 fL (7.4-10.4); Nucleated Red Blood Cells % 0 %; Platelet Count 298 10^3/uL (130-400); Red Blood Cell Count 4.19 10^6/uL (4.20-5.40); Red Cell Dist. Width 15.4 % (11.5-14.5); White Blood Cell Count 10.4 10^3/uL (4.8-10.8)
[2023-10-14 05:49] LABS: PT 18.8 Sec (11.4-14.6)
[2023-10-14 06:06] LABS: Blood Urea Nitrogen 9 mg/dl (7-17); Calcium 8.6 mg/dl (8.4-10.2); Carbon Dioxide 31 mmol/L (22-30); Chloride 96 mmol/L (98-107); Estimated Creatinine Clearance 113 ml/min; Glucose 97 mg/dl (70-99); Potassium 3.4 mmol/L (3.5-5.1); Sodium 134 mmol/L (135-145); eGFR > 60.00
[2023-10-14] MEDS: ADVAIR HFA 115/21 MCG INHALER 2 PUFF INH (08:09)
[2023-10-14] MEDS: SENOKOT-S 1 TABLET PO (08:53)
[2023-10-14] MEDS: LASIX 80 MG PO (08:53)
[2023-10-14] MEDS: ProAmatine 10 MG PO ×2 (08:53→16:55)
[2023-10-14] MEDS: ALDACTONE 25 MG PO (08:53)
[2023-10-14] MEDS: KCL 40 MEQ PO (08:54)
[2023-10-14] MEDS: THERAGRAN 1 TABLET PO (08:54)
[2023-10-14] MEDS: PROTONIX IV 40 MG IV ×2 (08:55→20:17)
[2023-10-14] MEDS: NSS (PRESERVATIVE FREE) 10 ML IV ×2 (08:55→20:18)
[2023-10-14] MEDS: MIRALAX PO ×2 (08:59→20:17)
[2023-10-14] MEDS: DESITIN MAXIMUM STRENGTH PASTE 1 APPLIC TOPICAL ×2 (09:04→21:57)
--- NOTE | 2023-10-14 11:58 | W.PN.HOSP.TC ---
Today's Communication/Plan
-
Bowel prep today
IV abx
Cards for preop
hold eliquis
Assessment / Plan
Assessment / Plan
# Melena secondary to suspected upper GI bleeding versus less likely epistaxis exacerbated by Eliquis
-Patient has only had 2 episodes of epistaxis in the last few weeks, unlikely to explain melena
-Hemoglobin holding so far.
-If with active bleeding check CTA abd/pelvis
-Hold Eliquis
-Protonix BID
-Clear liquid diet
-EGD/Colon tomm. Bowel prep per GI
-GI consulted
-Cards for pre-op. Sees Dr. Montes as outpatient.
# Productive cough
-Slight lower lobe crackles bilaterally
-cxr Negative
-Continue guaifenesin
#E.coli UTI
-She is tender in the suprapubic region and given dark urine suspect UTI
-Pending susceptibility. Continue ceftriaxone.
-check axr -neg for obstruction
# Constipation
-Continue MiraLAX, docusate
# Recent epistaxis
-Most recently yesterday from right nostril, now resolved
Paroxysmal atrial fibrillation
-Hold Eliquis
Chronic HFrEF on 2 L at nighttime
Chronic hypoxic resp insufficiency
-Continue Lasix
-Continue spironolactone
Essential hypertension
History of hypotension
-Continue midodrine
Allergic asthma
-Continue inhalers
-Continue montelukast
Chronic hyponatremia
Suspected obstructive sleep apnea
Obesity
Breast cancer
Prior CVA
Hyperlipidemia
-Continue statin
Hypokalemia-replete/monitor
Full code
DVT prophylaxis�SCDs in setting of GIB
Anticipated Discharge: > 48 hours
Subjective/Interval History
-
Date of Service: October 14, 2023
resting in bed comfortably.
Objective Data
-
Labs:
Laboratory Results
10/14/23
04:58
WBC 10.4
Hgb 12.9
Hct 39.8
Plt Count 298
PT 18.8 H
INR 1.60
Sodium 134 L
Potassium 3.4 L
Chloride 96 L
Carbon Dioxide 31 H
BUN 9
Creatinine 0.6
Glucose 97
Calcium 8.6
Vital Signs:
Vital Signs
Temp Pulse Resp BP Pulse Ox
98.3 F 71 20 110/80 96
10/14/23 11:34 10/14/23 11:34 10/14/23 11:34 10/14/23 11:34 10/14/23 11:34
I&O
10/13/23 10/14/23 10/15/23
06:59 06:59 06:59
Intake Total 600 / 600
Balance 600 / 600
Physical Exam
-
General: Well Developed, Well Nourished, Comfortable, Appears Chronically Ill, Morbidly Obese and Other (looks older than stated age )
HEENT: Normocephalic, Atraumatic and Oxygen (nc )
Respiratory: Clear to Auscultation and Non Labored Respirations; Negative Wheezes or Accessory Resp Muscle Use
Cardiac: Regular Rhythm and S1/S2
GI: Soft, Nontender, Nondistended and Normal Bowel Sounds
Musculoskeletal: No Clubbing and No Cyanosis
Skin: Warm
Neuro: Awake, Alert, Oriented and AO x 3
Psych: Calm and Intact Judgement/Insight
Data Reviewed
-
Total Time Spent with Patient (in minutes): 55
--- NOTE | 2023-10-14 12:04 | VNURNOTE ---
Patient is current with [facility] since 08/19 w/SN/PT/OT/[facility] SPECIALIST, lives alone. Will monitor progress and plan at discharge.
--- NOTE | 2023-10-14 13:54 | CON.CAR ---
Addendum entered and electronically signed by Destin Luna MD 10/14/23 15:14:
Patient seen and examined in collaboration with ADVERTISING SALES EXECUTIVE; agree with below.
-68-year-old female with cardiac/medical history as outlined below including persistent atrial fibrillation (on Eliquis) admitted with dark stools, concerning for lower GI bleed.
-Cardiology consulted for preprocedural evaluation prior to undergoing EGD/colonoscopy.
-The patient's LVEF is 50% and she is compensated on examination.
-The patient has no active cardiac symptoms or complaints; therefore, she can proceed with EGD/colonoscopy as scheduled.
-Resume Eliquis once cleared by GI.
-No further cardiac recommendations at this time; can follow-up with Cardiology as an outpatient.
Original Note:
Consultation
Consultation Request
Date/Time Consultation Requested: 10/14/23 1205
Date/Time Consultation Performed: 10/14/23 1345
Requesting Provider: Dr. Keller
Performing Provider: Lis HAINES for Dr. Luna
Reason for Consultation: pre-procedure cardiac risk assessment
Medical History
-
Chief Complaint: black stool
History of Present Illness:
68 y/o female with persistent AFIB on Eliquis, hx PVI 2022- repeat 02/2023, pacemaker and AVN ablation 08/2023, HFpEF, moderate MS, HTN, CVA 1988, breast cancer 2010 with hx chemo/surgery/radiation, obesity, lymphedema who is here for evaluation of
recently discovered black stool. She has also had change in bowel pattern and weight loss over the past year. No CP or SOB. Feels tired/fatigue. There is abdominal pain too. She saw blood in urine, now treated for UTI.
Past Medical History
Past Medical History: Arrhythmias, Cancer, CHF, CVA, HTN and Valvular Disease
Social History
Tobacco: Former Smoker
Alcohol: None
Family History
Family History: Reviewed & Not Pertinent
Allergies / Home Medications
Allergy/AdvReac Type Severity Reaction Status Date / Time
codeine Allergy 'loopy' Verified 08/24/23 20:37
�Medication �Instructions �Recorded �Confirmed �Type
montelukast 10 mg tablet 10 mg PO HS Lung/breathing issues 06/23/22 10/12/23 History
apixaban 5 mg tablet (Eliquis) 5 mg PO BID #60 tabs 07/01/22 10/12/23 Rx
rosuvastatin 20 mg tablet 20 mg PO HS High Cholesterol 02/17/23 10/12/23 History
fluticasone 250 mcg-salmeterol 50 2 inh inhalation R BID 02/22/23 10/12/23 History
mcg/dose blistr powdr for
inhalation (Wixela Inhub)
therapeutic multivitamin 1 tab PO DAILY Supplement ##0 04/16/23 10/12/23 History
docusate sodium 100 mg capsule 100 mg PO DAILY PRN constipation 08/02/23 10/12/23 History
pantoprazole 40 mg tablet,delayed 40 mg PO DAILY #0 tabs 09/02/23 10/12/23 Rx
release
potassium chloride 20 mEq 40 meq (2 x 20 mEq) PO DAILY #0 09/02/23 10/12/23 Rx
tablet,extended release tabs
furosemide 80 mg tablet (Lasix) 80 mg PO DAILY Fluid 10/12/23 10/12/23 History
retention/Swelling
guaifenesin 600 mg tablet, 600 mg PO HS 10/12/23 10/12/23 History
extended release 12 hr
midodrine 10 mg tablet 10 mg PO BID 10/12/23 10/12/23 History
polyethylene glycol 3350 17 gram 17 g PO DAILYPRN PRN constipation 10/12/23 10/12/23 History
oral powder packet (HealthyLax)
spironolactone 25 mg tablet 25 mg PO DAILY Fluid 10/12/23 10/12/23 History
(Aldactone) Retention/Swelling
zinc oxide-cod liver oil 40 % 1 applic topical BID 10/12/23 10/12/23 History
topical paste (Desitin)
Review of Systems
-
History Source: Patient
All other systems: Negative unless noted
Constitutional: Weight Loss and Fatigue
Abdomen/GI: Black Stools
: Bleeding
Physical Exam
Vital Signs
Temp Pulse Resp BP Pulse Ox
98.3 F 71 20 110/80 96
10/14/23 11:34 10/14/23 11:34 10/14/23 11:34 10/14/23 11:34 10/14/23 11:34
Lab Results
10/14/23 04:58
10/14/23 04:58
Physical Exam
General: Well Developed, Well Nourished and No Apparent Distress
HEENT: Normocephalic and Anicteric
Respiratory: Clear and Non Labored Respirations
Cardiac: Regular Rhythm
Musculoskeletal: No Edema
Skin: Warm and Dry
Neuro: AO x 3
Psych: Calm
Impression / Plan
-
GI symptoms (weight loss, change in bowel pattern, black stool):
-plan is for egd and colonoscopy tomorrow
-from cardiac perspective, she has AFIB with hx AVN ablation with pacemaker in place and chronic HFpEF. These conditions are stable. Follow volume and telemetry.
Chronic HFpEF:
-volume status stable
-continue Lasix and monitor volume
-hypokalemia noted and being replaced- follow
-OP Meds Lasix 80 mg PO BID and spironolactone 12.5 mg PO daily and she should continue this dosing as OP
Persistent AFIB:
-s/p AVN ablation 08/10/23
-on Eliquis, held for above- resume when safe
HTN:
-stable
-follow
UTI:
-on ABX
Data Reviewed
-
EKG: Tracing Personally Visualized and interpreted (EKG 4/18/24 V paced, aflutter)
Radiology: Report Reviewed by me (CXR: No acute disease of the chest)
Medical Tests (Nuc Med, Echo etc): Report Reviewed by me (echo 07/26/23: Left ventricular ejection fraction is 50-55% by Scherer's method of discs. Echo 07/20/23 TDS EF 30-35%, mod MS, reduced RVSF, mild to moderate TR)
Labs: Labs Reviewed by me
--- NOTE | 2023-10-14 15:59 | W.PN.GI.CBS2 ---
Today's Communication / Plan
-
EGD/colonoscopy tomorrow
Assessment / Plan
-
The patient is a 68-year-old female with a complex past medical history significant for atrial fibrillation on Eliquis, heart failure with reduced ejection fraction with EF of 50 to 55% on most recent echo, sick sinus syndrome status post pacemaker
placement with revision, history of breast cancer status postlumpectomy, lymph node dissection, with chemotherapy and radiation, obesity with history of gastric bypass with lap band done out of [place], CVA with minimal left-sided residual
weakness, sleep apnea, GERD, anxiety/depression, ROYA thrombus, obesity, asthma, chronic O2, who presented to the emergency room with complaints of fatigue and melena. We are being asked to evaluate for the presenting symptoms for concern of
possible GI bleed. Noted history above, with multiple hospitalizations over the past year for heart failure. She was also admitted in May with an episode of colitis. She was recommended colonoscopy at that time after 6 to 8 weeks to allow for
healing but had to cancel her colonoscopy due to a recurrent hospital admission. She has been having ongoing weight loss along with intermittent melena along with new onset of constipation over the past few months. She is on Eliquis which has been
held, with her last dose on 10/11. She is hemodynamically stable with a stable hemoglobin of 13.0 with no active signs of bleeding currently. Prior EGD in 2013 showed gastritis otherwise normal. Her last colonoscopy was done within the last 5-10
years in [place], with hx of polyps. She is being treated for a UTI in which urine culture showed E. coli.
Problem list:
-Black stool, brown heme-negative in the ER
-Abdominal pain
-Constipation
-History of gastric bypass with lap band
-Weight loss, loss of appetite
-History of A-fib on Eliquis, last dose taken on 10/11 in the AM
-Heart failure with reduced ejection fraction, most recent echo showing 50 to 55% EF
-Elevated INR
-Leukocytosis, resolved
-Hypokalemia
-Elevated bilirubin, appears chronic
Other pertinent medical history:
-Asthma
-Chronic oxygen
-Chronic hyponatremia
-Obesity
-History of breast cancer status postchemotherapy and radiation with lymph node dissection and lumpectomy
-CVA with minimal left-sided weakness
-Hyperlipidemia
-Hypertension
Recommendations:
-EGD/colonoscopy tomorrow to evaluate for change in bowel habits, ?melena
- eliquis on hold
-Further plan pending above
Subjective
Subjective
Date of Service: October 14, 2023
Pt with no new complaints, no vomiting
Objective
Data Reviewed
Laboratory Data:
Laboratory Results
10/14/23 04:58
10/14/23 04:58
Laboratory Results
PT 18.8 Sec (11.4-14.6) H 10/14/23 04:58
INR 1.60 10/14/23 04:58
APTT 31.2 Sec (23.4-35.0) 10/12/23 17:26
Total Bilirubin 1.7 mg/dl (0.2-1.3) H 10/13/23 04:54
AST 18 U/L (14-36) 10/13/23 04:54
ALT < 10 U/L (0-35) 10/13/23 04:54
Alkaline Phosphatase 95 U/L (38-126) 10/13/23 04:54
Vital Signs and I&O:
Vital Signs
Temp Pulse Resp BP Pulse Ox
99 F 70 18 102/60 94
10/14/23 15:38 10/14/23 15:38 10/14/23 15:38 10/14/23 15:38 10/14/23 15:38
I&O
10/13/23 10/14/23 10/15/23
06:59 06:59 06:59
Intake Total 600 / 600
Balance 600 / 600
Physical Exam
Physical Exam
GI: Non Distended and Non Tender
--- NOTE | 2023-10-14 16:17 | CM ---
I met with Luciana this afternoon and she was in good spirits. She advised that she will be having a colonoscopy and endoscopy tomorrow to determine if/where she may be bleeding.
Plan: Return home with resumption of [facility].
[2023-10-14] MEDS: NULYTELY SOLUTION 2 LITERS PO (16:46)
--- NOTE | 2023-10-14 19:18 | PTCARENOTE ---
Patient started on GI prep. Golytely 2 L started at 1700. Patient incontinent large amount of liquid brown stool. Patient completed 75% of prep. Perineal care provided and patient assisted to the BSC.
[2023-10-14] MEDS: STERILE WATER FOR INJECTION 10 ML IV (20:18)
[2023-10-14] MEDS: ROCEPHIN 1000 MG IV (20:18)
[2023-10-14] MEDS: ADVAIR HFA 115/21 MCG INHALER INH (20:47)
[2023-10-14] MEDS: SINGULAIR 10 MG PO (21:57)
[2023-10-14] MEDS: MUCINEX 600 MG PO (21:57)
[2023-10-14] MEDS: CRESTOR 20 MG PO (21:57)
--- NOTE | 2023-10-14 23:00 | PTCARENOTE ---
Pt is AAOx3, severely anxious and constantly complaining about anything. Forgetful at times, General weakness. Pt has been drinking bowel prep on and off. Vpaced in the monitor. Lung sounds are diminished and fine crackles at the bases. Pt is on 2L
sO2 94%. Incontinence of bowel and bladder.
[2023-10-15] VITALS (11 sets, daily range): BP systolic 72–133; BP diastolic 39–88; BMI 40.6
[2023-10-15] MEDS: NULYTELY SOLUTION 2 LITERS PO (05:23)
[2023-10-15] MEDS: ADVAIR HFA 115/21 MCG INHALER 2 PUFF INH (07:35)
[2023-10-15 08:00] LABS: % Basophils 1.2 % (0-2); % Immature Granulocytes 0.7 % (0-0.5); % Lymphocytes 13.7 % (20.5-51.1); % Monocytes 7.1 % (1.7-9.3); % Neutrophils 73.3 % (42.2-75.2); Absolute Basophils 0.1 10^3/uL (0-0.2); Absolute Eosinophils 0.4 10^3/uL (0-0.7); Absolute Immature Granulocytes 0.1 10^3/uL (0-0.05); Absolute Lymphocytes 1.3 10^3/uL (1.2-3.4); Absolute Monocytes 0.7 10^3/uL (0.1-0.6); Hematocrit 40.3 % (37.0-47.0); Hemoglobin 13.2 g/dL (12.0-16.0); Mean Corp Hgb Conc. 32.8 g/dL (33.0-37.0); Mean Corpuscular Volume 94.6 fL (81.0-99.0); Mean Platelet Volume 9.5 fL (7.4-10.4); Nucleated Red Blood Cells % 0 %; Platelet Count 304 10^3/uL (130-400); Red Blood Cell Count 4.26 10^6/uL (4.20-5.40); Red Cell Dist. Width 15.3 % (11.5-14.5); White Blood Cell Count 9.6 10^3/uL (4.8-10.8)
[2023-10-15 08:11] LABS: INR 1.52; PT 18.1 Sec (11.4-14.6)
[2023-10-15 08:47] LABS: Blood Urea Nitrogen 10 mg/dl (7-17); Calcium 8.6 mg/dl (8.4-10.2); Carbon Dioxide 29 mmol/L (22-30); Chloride 96 mmol/L (98-107); Estimated Creatinine Clearance 113 ml/min; Glucose 99 mg/dl (70-99); Potassium 3.6 mmol/L (3.5-5.1); Sodium 134 mmol/L (135-145); eGFR > 60.00
[2023-10-15] MEDS: LASIX 80 MG PO (11:15)
[2023-10-15] MEDS: KCL 40 MEQ PO (11:15)
[2023-10-15] MEDS: NSS (PRESERVATIVE FREE) 10 ML IV ×2 (11:16→19:54)
[2023-10-15] MEDS: PROTONIX IV 40 MG IV ×2 (11:16→19:54)
[2023-10-15] MEDS: MIRALAX PO ×2 (11:17→19:54)
[2023-10-15] MEDS: ALDACTONE 25 MG PO (11:17)
[2023-10-15] MEDS: DESITIN MAXIMUM STRENGTH PASTE 1 APPLIC TOPICAL ×2 (11:18→19:54)
[2023-10-15] MEDS: ProAmatine 10 MG PO ×2 (11:18→18:02)
[2023-10-15] MEDS: SENOKOT-S PO (11:26)
[2023-10-15] MEDS: THERAGRAN PO (11:28)
--- NOTE | 2023-10-15 12:13 | W.PN.HOSP.TC ---
Today's Communication/Plan
-
EGD: Later today
Continue to hold Eliquis
Narrow down antibiotics
Assessment / Plan
Assessment / Plan
# Melena secondary to suspected upper GI bleeding versus less likely epistaxis exacerbated by Eliquis
-Patient has only had 2 episodes of epistaxis in the last few weeks, unlikely to explain melena
-Hemoglobin holding so far.
-If with active bleeding check CTA abd/pelvis
-Hold Eliquis
-Protonix BID
-EGD/Colon today. Additional dose of Enema.
-GI consulted
-Cards for pre-op. Sees Dr. Montes as outpatient.
# Productive cough
-Slight lower lobe crackles bilaterally
-cxr Negative
-Continue guaifenesin
#E.coli UTI
-narrow abx to cefazolin
# Constipation
-Continue MiraLAX, docusate
# Recent epistaxis
-Most recently yesterday from right nostril, now resolved
Paroxysmal atrial fibrillation
-Hold Eliquis
Chronic HFrEF on 2 L at nighttime
Chronic hypoxic resp insufficiency
-Continue Lasix
-Continue spironolactone
Essential hypertension
History of hypotension
-Continue midodrine
Allergic asthma
-Continue inhalers
-Continue montelukast
Chronic hyponatremia
Suspected obstructive sleep apnea
Obesity
Breast cancer
Prior CVA
Hyperlipidemia
-Continue statin
Morbid obesity due to excess calories
Suspected osteoarthritis with lumbar radiculopathy
Hypokalemia-replete/monitor
Full code
DVT prophylaxis�SCDs in setting of GIB
PT OT postprocedure
Anticipated Discharge: Within 24 hours
Subjective/Interval History
-
Date of Service: October 15, 2023
states of sciatica pain due to commode
Objective Data
-
Labs:
Laboratory Results
10/15/23
07:29
WBC 9.6
Hgb 13.2
Hct 40.3
Plt Count 304
PT 18.1 H
INR 1.52
Sodium 134 L
Potassium 3.6
Chloride 96 L
Carbon Dioxide 29
BUN 10
Creatinine 0.6
Glucose 99
Calcium 8.6
Vital Signs:
Vital Signs
Temp Pulse Resp BP Pulse Ox
99.0 F 75 20 133/88 95
10/15/23 11:09 10/15/23 11:15 10/15/23 11:09 10/15/23 11:15 10/15/23 11:09
I&O
10/14/23 10/15/23 10/16/23
06:59 06:59 06:59
Intake Total 600 / 600 2160 / 2160
Output Total 480 / 480
Balance 600 / 600 1680 / 1680
Physical Exam
-
General: Well Developed, Well Nourished, Comfortable, Appears Chronically Ill, Morbidly Obese and Other (looks older than stated age )
HEENT: Normocephalic, Atraumatic and Oxygen (nc )
Respiratory: Clear to Auscultation and Non Labored Respirations; Negative Wheezes or Accessory Resp Muscle Use
Cardiac: Regular Rhythm and S1/S2
GI: Soft, Nontender, Nondistended and Normal Bowel Sounds
Musculoskeletal: No Clubbing and No Cyanosis
Skin: Warm
Neuro: Awake, Alert, Oriented and AO x 3
Psych: Calm and Intact Judgement/Insight
Data Reviewed
-
Total Time Spent with Patient (in minutes): 55
--- NOTE | 2023-10-15 12:47 | VNURNOTE ---
[facility] resumption of care completed in [facility] after review of chart and discussion with patient. Patient confirmed having [facility] contact number.
--- NOTE | 2023-10-15 16:41 | CM ---
I was unable to see Luciana today, as she was off the floor for a procedure.
Plan is for resumption of [facility] at discharge to home.
--- NOTE | 2023-10-15 18:26 | W.PN.UPDATE ---
Addendum entered and electronically signed by Alba Vann MD 10/18/23 11:26:
possible cause of GI bleeding is esophagitis
Addendum entered and electronically signed by Alba Vann MD 10/15/23 18:45:
Patient also complains of history of constipation.
Suggest starting MiraLAX 1 capful every day for moderate to severe constipation.
If still constipated, need to call our office back to update.
Original Note:
Update Note
Progress Note Update
Upper endoscopy with esophagitis in the upper esophagus, could be reflux induced, no evidence of active GI bleeding but evidence of previous gastric lap band noted. Colonoscopy, single polyp removed from the ascending colon with cold snare.
Repeat upper endoscopy in 2 months to check healing.
Continue Protonix 40 mg p.o. twice a day for 8 weeks until EGD and then once a day thereafter.
Avoid NSAIDs.
Okay to start Eliquis tomorrow.
Okay for low residue diet.
Will follow-up in the office in 2 months.
Will sign off, please call back if needed.
[2023-10-15] MEDS: ADVAIR HFA 115/21 MCG INHALER INH (19:42)
[2023-10-15] MEDS: ANCEF 5 IV (19:53)
[2023-10-15] MEDS: MUCINEX 600 MG PO (21:32)
[2023-10-15] MEDS: SINGULAIR 10 MG PO (21:32)
[2023-10-15] MEDS: CRESTOR 20 MG PO (21:32)
[2023-10-15] MEDS: REFRESH EYE DROPS (PF) 1 DROPS BOTH EYES (21:41)
--- NOTE | 2023-10-16 03:27 | PTCARENOTE ---
AAOX3, easily angry, anxious and agitated towards staff. Pt refused to use commode or bedpan but rather soil herself in her brief. Pt has been rude to staff complaining that it is inappropriate to admitted pt early AM. Threatening to call upper
management. Pt has been annoyed at little things throughout her stay in the hospital. Previous roommate was moved to accommodate her needs. Pt doesn't want to hear any excuses and been annoyed at her roommates and the staff.
[2023-10-16 06:00] VITALS: BMI 40.5
[2023-10-16] MEDS: ADVAIR HFA 115/21 MCG INHALER 2 PUFF INH (06:11)
[2023-10-16] MEDS: CARAFATE 1 GRAM PO ×2 (06:14→16:28)
[2023-10-16 07:15] VITALS: BP 108/62
[2023-10-16 08:24] LABS: % Basophils 0.9 % (0-2); % Eosinophils 4.3 % (0-6); % Immature Granulocytes 0.5 % (0-0.5); % Monocytes 5.5 % (1.7-9.3); % Neutrophils 79.8 % (42.2-75.2); Absolute Basophils 0.1 10^3/uL (0-0.2); Absolute Eosinophils 0.5 10^3/uL (0-0.7); Absolute Immature Granulocytes 0.1 10^3/uL (0-0.05); Absolute Monocytes 0.6 10^3/uL (0.1-0.6); Absolute Neutrophils 8.6 10^3/uL (1.4-6.5); Hemoglobin 13.2 g/dL (12.0-16.0); Mean Corp Hgb Conc. 31.4 g/dL (33.0-37.0); Mean Corpuscular Hgb 30.7 pg (27.0-31.0); Mean Corpuscular Volume 97.7 fL (81.0-99.0); Mean Platelet Volume 10.1 fL (7.4-10.4); Nucleated Red Blood Cells % 0 %; Platelet Count 306 10^3/uL (130-400); Red Cell Dist. Width 15.2 % (11.5-14.5); White Blood Cell Count 10.8 10^3/uL (4.8-10.8)
[2023-10-16 08:58] LABS: Blood Urea Nitrogen 10 mg/dl (7-17); Calcium 8.9 mg/dl (8.4-10.2); Carbon Dioxide 27 mmol/L (22-30); Chloride 99 mmol/L (98-107); Estimated Creatinine Clearance 113 ml/min; Glucose 119 mg/dl (70-99); Potassium 3.5 mmol/L (3.5-5.1); Sodium 135 mmol/L (135-145); eGFR > 60.00
[2023-10-16] MEDS: SENOKOT-S PO (09:45)
[2023-10-16] MEDS: THERAGRAN PO (09:45)
[2023-10-16] MEDS: ELIQUIS 5 MG PO ×2 (09:45→20:47)
[2023-10-16] MEDS: DESITIN MAXIMUM STRENGTH PASTE 1 APPLIC TOPICAL ×2 (09:46→21:04)
[2023-10-16] MEDS: MIRALAX PO (09:46)
[2023-10-16] MEDS: LASIX 80 MG PO (09:47)
[2023-10-16] MEDS: ALDACTONE 25 MG PO (09:47)
[2023-10-16] MEDS: ProAmatine 10 MG PO ×2 (09:48→16:28)
[2023-10-16] MEDS: KCL 40 MEQ PO (09:48)
[2023-10-16] MEDS: PROTONIX IV 40 MG IV ×2 (09:48→20:47)
[2023-10-16] MEDS: ANCEF 5 IV ×2 (09:48→20:47)
[2023-10-16] MEDS: NSS (PRESERVATIVE FREE) 10 ML IV ×2 (09:48→20:46)
--- NOTE | 2023-10-16 12:33 | W.PN.HOSP.TC ---
Today's Communication/Plan
-
Await rehab evaluation
Case management for disposition
Assessment / Plan
Assessment / Plan
# Melena secondary to suspected upper GI bleeding versus less likely epistaxis exacerbated by Eliquis
-Patient has only had 2 episodes of epistaxis in the last few weeks, unlikely to explain melena
-Hemoglobin holding so far. No significant drop
-Protonix BID for 2 months until EGD and then once a day and thereafter.
-s/p EGD/Colon on 10/14-endoscopy with esophagitis and upper esophagus could be reflux induced. No evidence of active GI bleeding but evidence of previous gastric lap band noted. Single polyp removed from ascending colon. GI recommending repeat
endoscopy in 2 months to check healing.
-GI consulted
-Monitor follow-up polyp biopsy results outpatient with GI
# Productive cough
-Slight lower lobe crackles bilaterally
-cxr Negative
-Continue guaifenesin
#E.coli UTI
-narrow abx to cefazolin
# Constipation
-Continue MiraLAX, docusate
# Recent epistaxis
-Most recently yesterday from right nostril, now resolved
Paroxysmal atrial fibrillation
-Restart Eliquis.
Chronic HFrEF on 2 L at nighttime
Chronic hypoxic resp insufficiency
-Continue Lasix
-Continue spironolactone
-Discussed with cardiology is no need for repeat echocardiogram as one done recently.
Essential hypertension
History of hypotension
-Continue midodrine
Allergic asthma
-Continue inhalers
-Continue montelukast
Chronic hyponatremia
Suspected obstructive sleep apnea
Obesity
Breast cancer
Prior CVA
Hyperlipidemia
-Continue statin
Morbid obesity due to excess calories
Sleep study as outpatient with pulmonary.
Suspected osteoarthritis with lumbar radiculopathy
Hypokalemia-replete/monitor
Full code
DVT prophylaxis�SCDs in setting of GIB
PT OT postprocedure
Anticipated Discharge: Today
Subjective/Interval History
-
Date of Service: October 16, 2023
No overnight events
no bleeding
on chronic oxygen
Was frustrated with care overnight
Objective Data
-
Labs:
Laboratory Results
10/16/23
07:31
WBC 10.8
Hgb 13.2
Hct 42.0
Plt Count 306
Sodium 135
Potassium 3.5
Chloride 99
Carbon Dioxide 27
BUN 10
Creatinine 0.6
Glucose 119 H
Calcium 8.9
Vital Signs:
Vital Signs
Temp Pulse Resp BP Pulse Ox
99.8 F 74 16 108/62 95
10/16/23 07:15 10/16/23 07:15 10/16/23 07:15 10/16/23 07:15 10/16/23 08:25
I&O
10/15/23 10/16/23 10/17/23
06:59 06:59 06:59
Intake Total 2160 / 2160 50 / 50
Output Total 480 / 480 250 / 250
Balance 1680 / 1680 -200 / -200
Physical Exam
-
General: Well Developed, Well Nourished, Comfortable, Appears Chronically Ill, Morbidly Obese and Other (looks older than stated age )
HEENT: Normocephalic, Atraumatic and Oxygen (2lnc )
Respiratory: Non Labored Respirations; Negative Wheezes or Accessory Resp Muscle Use
Cardiac: S1/S2
GI: Soft, Nontender, Nondistended and Normal Bowel Sounds
Musculoskeletal: No Clubbing and No Cyanosis
Skin: Warm
Neuro: Awake, Alert, Oriented, AO x 3 and No Motor Deficits
Psych: Calm and Intact Judgement/Insight
[2023-10-16 14:00] VITALS: BP 116/63; PULSE 73; O2SAT 94
[2023-10-16 15:00] VITALS: BP 116/63; PULSE 71; O2SAT 95
[2023-10-16 15:38] VITALS: BP 112/70
[2023-10-16] MEDS: ADVAIR HFA 115/21 MCG INHALER INH (18:02)
[2023-10-16] MEDS: MIRALAX 17 GRAMS PO (20:47)
[2023-10-16] MEDS: SINGULAIR 10 MG PO (21:00)
[2023-10-16] MEDS: MUCINEX 600 MG PO (21:00)
[2023-10-16] MEDS: CRESTOR 20 MG PO (21:00)
[2023-10-16 23:31] VITALS: BP 104/64
[2023-10-17 06:00] VITALS: BMI 40.9
[2023-10-17] MEDS: CARAFATE 1 GRAM PO ×2 (06:20→16:10)
[2023-10-17 07:05] VITALS: BP 120/59
[2023-10-17] MEDS: ADVAIR HFA 115/21 MCG INHALER 2 PUFF INH (07:36)
[2023-10-17 08:05] LABS: % Eosinophils 4.6 % (0-6); % Immature Granulocytes 0.6 % (0-0.5); % Lymphocytes 11.6 % (20.5-51.1); % Monocytes 5.9 % (1.7-9.3); % Neutrophils 76.3 % (42.2-75.2); Absolute Basophils 0.1 10^3/uL (0-0.2); Absolute Eosinophils 0.5 10^3/uL (0-0.7); Absolute Immature Granulocytes 0.1 10^3/uL (0-0.05); Absolute Lymphocytes 1.3 10^3/uL (1.2-3.4); Absolute Monocytes 0.6 10^3/uL (0.1-0.6); Absolute Neutrophils 8.3 10^3/uL (1.4-6.5); Hematocrit 38.6 % (37.0-47.0); Hemoglobin 12.7 g/dL (12.0-16.0); Mean Corp Hgb Conc. 32.9 g/dL (33.0-37.0); Mean Corpuscular Hgb 31.3 pg (27.0-31.0); Mean Corpuscular Volume 95.1 fL (81.0-99.0); Mean Platelet Volume 9.7 fL (7.4-10.4); Nucleated Red Blood Cells % 0 %; Platelet Count 288 10^3/uL (130-400); Red Blood Cell Count 4.06 10^6/uL (4.20-5.40); Red Cell Dist. Width 15.1 % (11.5-14.5); White Blood Cell Count 10.8 10^3/uL (4.8-10.8)
[2023-10-17 08:16] LABS: Blood Urea Nitrogen 13 mg/dl (7-17); Calcium 8.8 mg/dl (8.4-10.2); Carbon Dioxide 26 mmol/L (22-30); Chloride 100 mmol/L (98-107); Estimated Creatinine Clearance 114 ml/min; Glucose 107 mg/dl (70-99); Sodium 134 mmol/L (135-145); eGFR > 60.00
[2023-10-17] MEDS: ANCEF 5 IV (08:20)
[2023-10-17] MEDS: ALDACTONE 25 MG PO (08:21)
[2023-10-17] MEDS: ELIQUIS 5 MG PO ×2 (08:21→19:56)
[2023-10-17] MEDS: LASIX 80 MG PO (08:21)
[2023-10-17] MEDS: ProAmatine 10 MG PO ×2 (08:21→16:09)
[2023-10-17] MEDS: KCL 40 MEQ PO (08:21)
[2023-10-17] MEDS: THERAGRAN 1 TABLET PO (08:21)
[2023-10-17] MEDS: SENOKOT-S 1 TABLET PO (08:21)
[2023-10-17] MEDS: PROTONIX IV 40 MG IV ×2 (08:21→19:56)
[2023-10-17] MEDS: NSS (PRESERVATIVE FREE) 10 ML IV ×2 (08:22→19:56)
[2023-10-17] MEDS: DESITIN MAXIMUM STRENGTH PASTE 1 APPLIC TOPICAL ×2 (08:30→22:44)
[2023-10-17] MEDS: MIRALAX 17 GRAMS PO ×2 (08:31→19:56)
--- NOTE | 2023-10-17 11:13 | W.PN.HOSP.TC ---
Addendum entered and electronically signed by Brayden Keller MD 10/17/23 14:06:
Patient wants to hold off on chest x-ray. States some mild epistaxis earlier today. Patient on Eliquis need to be monitored closely. Also stated remains with productive cough and if with no improvement will check CT chest.
Original Note:
Today's Communication/Plan
-
Sputum sample
repeat CXR
trend hgb.
low threshold to broaden coverage for abx
Assessment / Plan
Assessment / Plan
# Melena secondary to suspected upper GI bleeding versus less likely epistaxis exacerbated by Eliquis
-Patient has only had 2 episodes of epistaxis in the last few weeks, unlikely to explain melena
-Hemoglobin holding so far. No significant drop
-Protonix BID for 2 months until EGD and then once a day and thereafter.
-s/p EGD/Colon on 10/14-endoscopy with esophagitis and upper esophagus could be reflux induced. No evidence of active GI bleeding but evidence of previous gastric lap band noted. Single polyp removed from ascending colon. GI recommending repeat
endoscopy in 2 months to check healing.
-GI consulted
-Monitor follow-up polyp biopsy results outpatient with GI
#Bronchitis
-repeat CXR
-sputum sample
-Continue guaifenesin
#E.coli UTI
-narrow abx to cefazolin
# Constipation
-Continue MiraLAX, docusate
# Recent epistaxis
-Most recently yesterday from right nostril, now resolved
Paroxysmal atrial fibrillation
-Restart Eliquis.
Chronic HFrEF on 2 L at nighttime
Chronic hypoxic resp insufficiency
-Continue Lasix
-Continue spironolactone
-Discussed with cardiology is no need for repeat echocardiogram as one done recently.
Essential hypertension
History of hypotension
-Continue midodrine
Allergic asthma
-Continue inhalers
-Continue montelukast
Chronic hyponatremia
Suspected obstructive sleep apnea
Obesity
Breast cancer
Prior CVA
Hyperlipidemia
-Continue statin
Morbid obesity due to excess calories
Sleep study as outpatient with pulmonary.
Suspected osteoarthritis with lumbar radiculopathy
Hypokalemia-replete/monitor
Full code
DVT prophylaxis�SCDs in setting of GIB
PT OT postprocedure recs SNF. Pt wants home VN on dc.
Anticipated Discharge: Within 24 hours
Subjective/Interval History
-
Date of Service: October 17, 2023
states of chest discomfort wtih productive cough
Objective Data
-
Labs:
Laboratory Results
10/17/23
07:25
WBC 10.8
Hgb 12.7
Hct 38.6
Plt Count 288
Sodium 134 L
Potassium 4.0
Chloride 100
Carbon Dioxide 26
BUN 13
Creatinine 0.6
Glucose 107 H
Calcium 8.8
Vital Signs:
Vital Signs
Temp Pulse Resp BP Pulse Ox
98.8 F 71 16 120/59 2
10/17/23 07:05 10/17/23 08:21 10/17/23 07:41 10/17/23 08:21 10/17/23 08:20
I&O
10/16/23 10/17/23 10/18/23
06:59 06:59 06:59
Intake Total 50 / 50 780 / 780
Output Total 250 / 250 450 / 450
Balance -200 / -200 330 / 330
--- NOTE | 2023-10-17 11:47 | CM ---
Patient seen bedside, discussed PT recommendation of SNF. Patient would like to return home with [facility]. CM will continue to follow for all discharge planning needs.
Plan; home with [facility] when stable.
--- NOTE | 2023-10-17 13:42 | CHAP ---
Luciana welcomed my visit. She said it's been a hard year - in and out of hospital. She is keeping her spirits up; has caring family and friends. Emotional and spiritual support provided.
[2023-10-17 15:34] VITALS: BP 116/69
[2023-10-17] MEDS: ADVAIR HFA 115/21 MCG INHALER INH (19:42)
[2023-10-17] MEDS: CRESTOR 20 MG PO (22:43)
[2023-10-17] MEDS: SINGULAIR 10 MG PO (22:43)
[2023-10-17] MEDS: MUCINEX 600 MG PO (22:43)
[2023-10-17 23:39] VITALS: BP 94/61
[2023-10-18 06:00] VITALS: BMI 41.1
[2023-10-18] MEDS: CARAFATE 1 GRAM PO ×2 (06:11→17:17)
[2023-10-18 06:42] LABS: % Basophils 1.3 % (0-2); % Eosinophils 4.1 % (0-6); % Immature Granulocytes 0.6 % (0-0.5); % Lymphocytes 12.4 % (20.5-51.1); % Neutrophils 74.6 % (42.2-75.2); Absolute Basophils 0.1 10^3/uL (0-0.2); Absolute Eosinophils 0.5 10^3/uL (0-0.7); Absolute Immature Granulocytes 0.1 10^3/uL (0-0.05); Absolute Lymphocytes 1.4 10^3/uL (1.2-3.4); Absolute Monocytes 0.8 10^3/uL (0.1-0.6); Absolute Neutrophils 8.3 10^3/uL (1.4-6.5); Hematocrit 39.3 % (37.0-47.0); Hemoglobin 12.3 g/dL (12.0-16.0); Mean Corp Hgb Conc. 31.3 g/dL (33.0-37.0); Mean Corpuscular Hgb 30.8 pg (27.0-31.0); Mean Corpuscular Volume 98.3 fL (81.0-99.0); Nucleated Red Blood Cells % 0 %; Platelet Count 309 10^3/uL (130-400); Red Cell Dist. Width 15.2 % (11.5-14.5); White Blood Cell Count 11.1 10^3/uL (4.8-10.8)
[2023-10-18 07:15] VITALS: BP 84/55
[2023-10-18] MEDS: ADVAIR HFA 115/21 MCG INHALER 2 PUFF INH (07:48)
[2023-10-18] MEDS: ProAmatine 10 MG PO ×2 (08:56→17:17)
[2023-10-18] MEDS: LASIX PO (08:56)
[2023-10-18] MEDS: ALDACTONE PO (08:56)
[2023-10-18] MEDS: ELIQUIS 5 MG PO ×2 (08:57→20:09)
[2023-10-18] MEDS: PROTONIX IV 40 MG IV ×2 (08:57→20:18)
[2023-10-18] MEDS: SENOKOT-S 1 TABLET PO (08:57)
[2023-10-18] MEDS: KCL 40 MEQ PO (08:57)
[2023-10-18] MEDS: THERAGRAN 1 TABLET PO (08:57)
[2023-10-18] MEDS: NSS (PRESERVATIVE FREE) 10 ML IV ×2 (08:58→20:18)
[2023-10-18] MEDS: MIRALAX 17 GRAMS PO ×2 (09:00→20:18)
[2023-10-18 09:08] VITALS: BP 112/69
[2023-10-18] MEDS: DESITIN MAXIMUM STRENGTH PASTE 1 APPLIC TOPICAL ×2 (09:09→20:18)
--- NOTE | 2023-10-18 10:50 | PN.CDI ---
CDI
- -
CDI:
Physician Documentation Request
Admit Date: 10/12/23 17:59
Dear Doctor Edwar,
Patient presented to ED with several days of black stools
Hospitalist progress note states 'Melena secondary to suspected upper GI bleeding versus less likely epistaxis exacerbated by Eliquis'
10/14 EGD and colonoscopy revealed esophagitis in the upper esophagus, polyp in ascending colon, A few small-mouthed diverticula were found in the sigmoid colon and descending colon and internal hemorrhoids.
After careful study, what is the likely etiology of melena?
esophagitis,
polyp in ascending colol
diverticula
Multifactorial - please specify
Other
Use of terms such as suspected, likely, concern for, or probable (associated with a specific diagnosis that is being evaluated, monitored, or treated as if it exists) are acceptable and can be coded in the inpatient setting, when documented at the
time of discharge.
Thank you,
Janet Early RN, BSN
CDI Specialist
tiger text
Please use your independent medical judgment in providing your response.
--- NOTE | 2023-10-18 13:23 | W.PN.HOSP.TC ---
Today's Communication/Plan
-
d/w pt DC plan
Monitor respiratory status
Assessment / Plan
Assessment / Plan
Physical Exam
-
General: Well Developed, Well Nourished, Comfortable, Appears Chronically Ill, Morbidly Obese
HEENT: Normocephalic, Atraumatic and Oxygen (nc )
Respiratory: Clear to Auscultation and Non Labored Respirations; Negative Wheezes or Accessory Resp Muscle Use
Cardiac: Regular Rhythm and S1/S2
GI: Soft, Nontender, Nondistended and Normal Bowel Sounds
Musculoskeletal: No Clubbing and No Cyanosis
Skin: Warm
Neuro: Awake, Alert, Oriented and AO x 3
Psych: Calm and Intact Judgement/Insight
# Melena secondary to suspected upper GI bleeding versus less likely epistaxis exacerbated by Eliquis
-Patient has only had 2 episodes of epistaxis in the last few weeks, unlikely to explain melena
-Hemoglobin holding so far. No significant drop
-Protonix BID for 2 months until EGD and then once a day and thereafter.
-s/p EGD/Colon on 10/14-endoscopy with esophagitis and upper esophagus could be reflux induced. No evidence of active GI bleeding but evidence of previous gastric lap band noted. Single polyp removed from ascending colon. GI recommending repeat
endoscopy in 2 months to check healing.
-GI consulted
-Monitor follow-up polyp biopsy results outpatient with GI
#Bronchitis
-repeat CXR
-sputum sample
-Continue guaifenesin
#E.coli UTI
-narrow abx to cefazolin
# Constipation
-Continue MiraLAX, docusate
# Recent epistaxis
-Most recently yesterday from right nostril, now resolved
Paroxysmal atrial fibrillation
-Restarted Eliquis.
Chronic HFrEF on 2 L at nighttime
Chronic hypoxic resp insufficiency
-Continue Lasix
-Continue spironolactone
-Discussed with cardiology is no need for repeat echocardiogram as one done recently.
Essential hypertension
History of hypotension
-Continue midodrine
Allergic asthma
-Continue inhalers
-Continue montelukast
Chronic hyponatremia
Suspected obstructive sleep apnea
Obesity
Breast cancer
Prior CVA
Hyperlipidemia
-Continue statin
Morbid obesity due to excess calories
Sleep study as outpatient with pulmonary.
Suspected osteoarthritis with lumbar radiculopathy
Hypokalemia-replete/monitor
Full code
DVT prophylaxis�SCDs in setting of GIB
PT OT postprocedure recs SNF. Pt wants home VN on dc.
Total time spent to see the patient, examine the patient on the floor, review data and lab results, discuss treatment plan with patient, nursing staff around 55 minutes
Anticipated Discharge: Within 24 hours
Subjective/Interval History
-
Date of Service: October 18, 2023
Objective Data
-
Labs:
Laboratory Results
10/18/23
04:58
WBC 11.1 H
Hgb 12.3
Hct 39.3
Plt Count 309
Vital Signs:
Vital Signs
Temp Pulse Resp BP Pulse Ox
98.5 F 70 16 112/69 91
10/18/23 07:15 10/18/23 09:08 10/18/23 07:50 10/18/23 09:08 10/18/23 07:50
I&O
10/17/23 10/18/23 10/19/23
06:59 06:59 06:59
Intake Total 780 / 780 960 / 960
Output Total 450 / 450
Balance 330 / 330 960 / 960
[2023-10-18 15:10] VITALS: BP 96/56
[2023-10-18] MEDS: ADVAIR HFA 115/21 MCG INHALER INH (19:47)
[2023-10-18] MEDS: SINGULAIR 10 MG PO (21:22)
[2023-10-18] MEDS: CRESTOR 20 MG PO (21:22)
[2023-10-18] MEDS: MUCINEX 600 MG PO (21:22)
[2023-10-18 23:37] VITALS: BP 117/67
[2023-10-19] MEDS: CARAFATE 1 GRAM PO ×2 (05:28→16:18)
[2023-10-19 06:00] VITALS: BMI 41.4
[2023-10-19 07:15] VITALS: BP 111/63
[2023-10-19] MEDS: ADVAIR HFA 115/21 MCG INHALER 2 PUFF INH (08:44)
--- NOTE | 2023-10-19 10:12 | W.PN.HOSP.TC ---
Addendum entered and electronically signed by Linus Sahu MD 10/19/23 18:15:
Addendum
CT chest and Pro-BNP c/ acute HF
dx acute on chronic HFrEF
started on IV Lasix
Monitor BMP
d/w cardiology
End
Original Note:
Today's Communication/Plan
-
dc planning
Assessment / Plan
Assessment / Plan
Physical Exam
-
General: Well Developed, Well Nourished, Comfortable, Appears Chronically Ill, Morbidly Obese
HEENT: Normocephalic, Atraumatic and Oxygen (nc )
Respiratory: limited, some rales at bases.
Cardiac: Regular Rhythm and S1/S2
GI: Soft, Nontender, Nondistended and Normal Bowel Sounds
Musculoskeletal: No Clubbing and No Cyanosis
Skin: Warm
Neuro: Awake, Alert, Oriented and AO x 3
Psych: Calm and Intact Judgement/Insight
# Acute Bronchitis
- CXR showed no active disease. It looked c/w CHF for me. WIll check CT chest due to persistent cough ( with whitish/ greenish phlegm) , will also check Pro-BNP to rule out acute heart failure.
-sputum culture many squamous epithelial cells/mixed bacterial morphotypes/few yeast with pseudohyphae
-Continue guaifenesin for now.
# Melena secondary to suspected upper GI bleeding versus less likely epistaxis exacerbated by Eliquis
-Patient has only had 2 episodes of epistaxis in the last few weeks, unlikely to explain melena
-Hemoglobin holding so far. No significant drop
-Protonix BID for 2 months until EGD and then once a day and thereafter.
-s/p EGD/Colon on 10/14-endoscopy with esophagitis and upper esophagus could be reflux induced. No evidence of active GI bleeding but evidence of previous gastric lap band noted. Single polyp removed from ascending colon. GI recommending repeat
endoscopy in 2 months to check healing.
-GI consulted
-Monitored follow-up polyp biopsy results outpatient with GI
#E.coli UTI
-Finished course of 3 days of cefazolin
# Constipation
-Continue MiraLAX, docusate
# Recent epistaxis
-Most recently yesterday from right nostril, now resolved
Paroxysmal atrial fibrillation
-Restarted Eliquis.
Chronic HFrEF on 2 L at nighttime
Chronic hypoxic resp insufficiency
-Continue Lasix
-Continue spironolactone
-Discussed with cardiology is no need for repeat echocardiogram as one done recently.
Essential hypertension
History of hypotension
-Continue midodrine
Allergic asthma
-Continue inhalers
-Continue montelukast
Chronic hyponatremia
Suspected obstructive sleep apnea
Obesity
Breast cancer
Prior CVA
Hyperlipidemia
-Continue statin
Morbid obesity due to excess calories
Sleep study as outpatient with pulmonary.
Suspected osteoarthritis with lumbar radiculopathy
Hypokalemia-replete/monitor
Full code
DVT prophylaxis�SCDs in setting of GIB
PT OT postprocedure recs SNF. Pt wants home VN on dc.
Total time spent to see the patient, examine the patient on the floor, review data and lab results, discuss treatment plan with patient, nursing staff around 55 minutes
Anticipated Discharge: Within 24 hours
Subjective/Interval History
-
Date of Service: October 19, 2023
She complains of cough
Objective Data
-
Vital Signs:
Vital Signs
Temp Pulse Resp BP Pulse Ox
99.0 F 72 20 111/63 91
10/19/23 07:15 10/19/23 07:15 10/19/23 07:15 10/19/23 07:15 10/19/23 07:15
I&O
10/18/23 10/19/23 10/20/23
06:59 06:59 06:59
Intake Total 960 / 960
Balance 960 / 960
[2023-10-19] MEDS: ProAmatine 10 MG PO ×2 (11:17→16:18)
[2023-10-19] MEDS: KCL 40 MEQ PO (11:17)
[2023-10-19] MEDS: LASIX 80 MG PO (11:17)
[2023-10-19] MEDS: NSS (PRESERVATIVE FREE) 10 ML IV ×2 (11:18→19:49)
[2023-10-19] MEDS: THERAGRAN 1 TABLET PO (11:18)
[2023-10-19] MEDS: DESITIN MAXIMUM STRENGTH PASTE 1 APPLIC TOPICAL ×2 (11:18→19:55)
[2023-10-19] MEDS: PROTONIX IV 40 MG IV ×2 (11:18→19:50)
[2023-10-19] MEDS: SENOKOT-S 1 TABLET PO (11:18)
[2023-10-19] MEDS: ELIQUIS 5 MG PO ×2 (11:18→19:50)
[2023-10-19] MEDS: MIRALAX 17 GRAMS PO ×2 (11:18→19:51)
[2023-10-19] MEDS: ALDACTONE 25 MG PO (11:18)
[2023-10-19 11:29] LABS: NT-proBNP 10800 pg/ml
--- NOTE | 2023-10-19 11:45 | CM ---
CM met with patient today to discuss discharge plans. She will not consider SNF and plans to return home with [facility].
We spoke about an emergency alert system in case she were to fall, as she lives alone. Luciana advised that she has 3 [address]as at home and will use them if she were in need of an ambulance. Neighbors are also very supportive and assist with things
as needed. Currently Luciana's cat is being cared for by a neighbor.
CM will continue to follow for all discharge planning needs.
Plan: Discharge to home with [facility] for SN, PT, OT and FILTER CLEANER.
PCP: Qiana Rodriguez [phone]
--- NOTE | 2023-10-19 13:53 | W.PN.CD ---
Addendum entered and electronically signed by Lala Jones MD 10/19/23 16:39:
I saw and examined the patient.
The THRESHING MACHINE OPERATOR's note was reviewed and I agree with the note.
Comment: She is feeling ok, putting out to the lasix already. On exam she is obese, cannot evaluate jvp, rrr, decrease lung bases. Wt is up, she is coughing,probnp and ct support chf, agree with diuresis. Will monitor her bp and lytes intensively
while on iv diuresis.
Original Note:
Today's Communication / Plan
-
Start furosemide 80 mg IV twice daily, start now
Follow I/O and daily weight
Sodium and fluid restrictions
Impression / Plan
-
BACKGROUND: 68F with persistent atrial fibrillation (PVI x 2 in 2022), pacemaker and AVN ablation 08/2023, HFpEF, moderate mitral stenosis, hypertension, CVA (1988), breast cancer (surgery/chemotherapy/XRT 2010), obesity, and lymphedema who
presented with a chief complaint of black stool
HFpEF, acute
-She endorsed a cough which prompted chest CT which showed pulmonary edema & proBNP 10K
-Diuresis with furosemide 80 mg IV twice daily, first dose now
-Sodium restriction was added to her diet in addition to fluid restriction
-Trend daily weight, I/O, and BMP with diuresis
-Heart failure education
GI symptoms
-Weight loss, change in bowel pattern, black stool
-Endo/[place] 10/15/2023: Esophagitis in upper esophagus
-Repeat endo in 2 months per GI, can resume apixaban
Persistent atrial fibrillation
-s/p AVN ablation 08/10/23
-Oral anticoagulation: Apixaban 5 mg twice daily has been resumed
-[id number] score of at least 6 (hypertension, female gender, age 68, CHF, prior CVA)
Hematuria, resolved, UTI was treated
HTN
Moderate mitral stenosis
Chronic hypoxic respiratory insufficiency, 2 L nasal cannula at bedtime at home
Obesity, BMI 41
Physical Exam
Vital Signs/Labs
Vital Signs
Temp Pulse Resp BP Pulse Ox
99.0 F 72 20 111/63 91
10/19/23 07:15 10/19/23 07:15 10/19/23 07:15 10/19/23 07:15 10/19/23 08:30
10/18/23 10/19/23 10/20/23
06:59 06:59 06:59
Actual Weight 115.439 kg 116.375 kg
10/18/23 04:58
10/17/23 07:25
PT 18.1 Sec (11.4-14.6) H 10/15/23 07:29
INR 1.52 10/15/23 07:29
APTT 31.2 Sec (23.4-35.0) 10/12/23 17:26
10/19/23
10:31
Ufe-X-Bavigwcteua Pept [id number]
Physical Exam
Constitutional: No acute distress and Comfortable
EENT: Anicteric and Moist mucous membranes
Cardiovascular: Pedal edema is absent, Rhythm/rate is irregular and S1S2 is normal
Respiratory: Respiratory effort normal and Crackles Present
GI: Soft, Distention absent, Non tender and Normal bowel sounds
Neuro/Psych: AO x 3
Other: Skin (warm and dry)
Data Reviewed
-
Date of Service: October 19, 2023
Medical Tests (PFT, Pathology etc): Report Reviewed by me
Labs: Labs Reviewed by me
[2023-10-19] MEDS: LASIX 80 MG IV (14:02)
[2023-10-19 15:05] VITALS: BP 95/51
[2023-10-19] MEDS: ADVAIR HFA 115/21 MCG INHALER INH (19:50)
[2023-10-19] MEDS: SINGULAIR 10 MG PO (21:01)
[2023-10-19] MEDS: CRESTOR 20 MG PO (21:01)
[2023-10-19] MEDS: MUCINEX 600 MG PO (21:01)
[2023-10-19 23:34] VITALS: BP 102/59
[2023-10-20] MEDS: CARAFATE 1 GRAM PO ×2 (05:17→16:18)
[2023-10-20 05:58] LABS: Blood Urea Nitrogen 15 mg/dl (7-17); Calcium 8.7 mg/dl (8.4-10.2); Carbon Dioxide 26 mmol/L (22-30); Chloride 100 mmol/L (98-107); Estimated Creatinine Clearance 115 ml/min; Glucose 108 mg/dl (70-99); Potassium 4.1 mmol/L (3.5-5.1); Sodium 136 mmol/L (135-145); eGFR > 60.00
[2023-10-20 06:00] VITALS: BMI 40.7
[2023-10-20 07:55] VITALS: BP 104/64
[2023-10-20] MEDS: ADVAIR HFA 115/21 MCG INHALER 2 PUFF INH (08:15)
[2023-10-20] MEDS: MIRALAX 17 GRAMS PO (08:39)
[2023-10-20] MEDS: NSS (PRESERVATIVE FREE) 10 ML IV (08:40)
[2023-10-20] MEDS: PROTONIX IV 40 MG IV (08:40)
[2023-10-20] MEDS: ALDACTONE 25 MG PO (08:40)
[2023-10-20] MEDS: ProAmatine 10 MG PO ×2 (08:41→16:17)
[2023-10-20] MEDS: ELIQUIS 5 MG PO ×2 (08:42→20:09)
[2023-10-20] MEDS: SENOKOT-S 1 TABLET PO (08:42)
[2023-10-20] MEDS: THERAGRAN 1 TABLET PO (08:42)
[2023-10-20] MEDS: KCL 40 MEQ PO (08:42)
[2023-10-20] MEDS: LASIX 80 MG IV ×2 (08:43→16:16)
[2023-10-20] MEDS: DESITIN MAXIMUM STRENGTH PASTE 1 APPLIC TOPICAL ×2 (09:05→20:10)
--- NOTE | 2023-10-20 09:49 | W.PN.CD ---
Today's Communication / Plan
-
-Will transition from furosemide 80 mg IV twice daily back to furosemide 80 mg daily tomorrow, which should be her home dose.
-No further cardiac recommendations at this time; outpatient follow-up with Cardiology.
Impression / Plan
-
BACKGROUND: 68F with persistent atrial fibrillation (PVI x 2 in 2022), pacemaker and AVN ablation 08/2023, HFpEF, moderate mitral stenosis, hypertension, CVA (1988), breast cancer (surgery/chemotherapy/XRT 2010), obesity, and lymphedema who
presented with a chief complaint of black stool
HFpEF, acute
-She endorsed a cough which prompted chest CT which showed pulmonary edema & proBNP 10K
-Volume status improving.
-Will transition from furosemide 80 mg IV twice daily back to furosemide 80 mg daily tomorrow, which should be her home dose.
-Sodium restriction was added to her diet in addition to fluid restriction.
-No further cardiac recommendations at this time; outpatient follow-up with Cardiology.
GI symptoms
-Weight loss, change in bowel pattern, black stool
-Endo/[place] 10/15/2023: Esophagitis in upper esophagus
-Repeat endo in 2 months per GI, can resume apixaban
Persistent atrial fibrillation
-s/p AVN ablation 08/10/23
-Oral anticoagulation: Apixaban 5 mg twice daily has been resumed
-[id number] score of at least 6 (hypertension, female gender, age 68, CHF, prior CVA)
Hematuria, resolved, UTI was treated
HTN - BP stable/controlled
Moderate mitral stenosis -outpatient management.
Chronic hypoxic respiratory insufficiency, 2 L nasal cannula at bedtime at home
Obesity, BMI 41
Physical Exam
Vital Signs/Labs
Vital Signs
Temp Pulse Resp BP Pulse Ox
97.8 F 78 16 102/59 92
10/20/23 07:55 10/20/23 08:43 10/20/23 08:20 10/20/23 08:43 10/20/23 08:20
10/19/23 10/20/23 10/21/23
06:59 06:59 06:59
Actual Weight 116.375 kg 114.215 kg
10/18/23 04:58
10/20/23 05:12
PT 18.1 Sec (11.4-14.6) H 10/15/23 07:29
INR 1.52 10/15/23 07:29
APTT 31.2 Sec (23.4-35.0) 10/12/23 17:26
10/19/23
10:31
Fzh-V-Umlcegtphjo Pept [id number]
Physical Exam
Constitutional: No acute distress and Comfortable
EENT: Anicteric
Cardiovascular: Rhythm & rate is regular, Pedal edema is absent, Systolic murmur absent and S1S2 is normal
Respiratory: Respiratory effort normal and Lungs clear to auscul.
GI: Soft
Neuro/Psych: AO x 3
Other: Skin (Warm, dry, intact)
Data Reviewed
-
Date of Service: October 20, 2023
Labs: Labs Reviewed by me
--- NOTE | 2023-10-20 10:21 | W.PN.HOSP.TC ---
Today's Communication/Plan
-
likely dc in am
Assessment / Plan
Assessment / Plan
Physical Exam
-
General: Well Developed, Well Nourished, Comfortable, Appears Chronically Ill, Morbidly Obese
HEENT: Normocephalic, Atraumatic and Oxygen (nc )
Respiratory: limited, some rales at bases.
Cardiac: Regular Rhythm and S1/S2
GI: Soft, Nontender, Nondistended and Normal Bowel Sounds
Musculoskeletal: No Clubbing and No Cyanosis
Skin: Warm
Neuro: Awake, Alert, Oriented and AO x 3
Psych: Calm and Intact Judgement/Insight
# Acute on chronic HFrEF
started on high dose Lasix 80 mg BID with good clinical response
Add daily weight to compare
# Melena secondary to suspected upper GI bleeding versus less likely epistaxis exacerbated by Eliquis
-Patient has only had 2 episodes of epistaxis in the last few weeks, unlikely to explain melena
-Hemoglobin holding so far. No significant drop
-Protonix BID for 2 months until EGD and then once a day and thereafter. ok to switch to oral PPI.
-s/p EGD/Colon on 10/14-endoscopy with esophagitis and upper esophagus could be reflux induced. No evidence of active GI bleeding but evidence of previous gastric lap band noted. Single polyp removed from ascending colon. GI recommending repeat
endoscopy in 2 months to check healing.
-GI consulted
-Monitored follow-up polyp biopsy results outpatient with GI
#E.coli UTI
-Finished course of 3 days of cefazolin
# Constipation
-Continue MiraLAX, docusate
# Recent epistaxis
-Most recently yesterday from right nostril, now resolved
Paroxysmal atrial fibrillation
-Restarted Eliquis.
Chronic HFrEF on 2 L at nighttime
Chronic hypoxic resp insufficiency
-Continue Lasix
-Continue spironolactone
-Discussed with cardiology is no need for repeat echocardiogram as one done recently.
Essential hypertension
History of hypotension
-Continue midodrine
Allergic asthma
-Continue inhalers
-Continue montelukast
Chronic hyponatremia
Suspected obstructive sleep apnea
Obesity
Breast cancer
Prior CVA
Hyperlipidemia
-Continue statin
Morbid obesity due to excess calories
Sleep study as outpatient with pulmonary.
Suspected osteoarthritis with lumbar radiculopathy
Hypokalemia-replete/monitor
Full code
DVT prophylaxis�SCDs in setting of GIB
PT OT postprocedure recs SNF. Pt wants home VN on dc.
Total time spent to see the patient, examine the patient on the floor, review data and lab results, discuss treatment plan with patient, nursing staff around 55 minutes
Anticipated Discharge: Within 24 hours
Subjective/Interval History
-
Date of Service: October 20, 2023
Less cough after Lasix, no chest pains
Objective Data
-
Labs:
Laboratory Results
10/20/23
05:12
Sodium 136
Potassium 4.1
Chloride 100
Carbon Dioxide 26
BUN 15
Creatinine 0.6
Glucose 108 H
Calcium 8.7
Vital Signs:
Vital Signs
Temp Pulse Resp BP Pulse Ox
97.8 F 78 16 102/59 92
10/20/23 07:55 10/20/23 08:43 10/20/23 08:20 10/20/23 08:43 10/20/23 08:20
I&O
10/19/23 10/20/23 10/21/23
06:59 06:59 06:59
Intake Total 840 / 840
Balance 840 / 840
[2023-10-20 15:00] VITALS: BP 108/72
--- NOTE | 2023-10-20 15:26 | CM ---
I met with Luciana to discuss discharge for tomorrow. Luciana will arrange a ride home when she knows an approximate time for discharge. She has friends who will provide transport home when she calls.
Luciana advised that she will order groceries for delivery when she gets home.
[facility] services will resume, Olena Sampson notified of probable discharge for resumption of care.
Plan: Discharge to home via friends transport; [facility] plan for [facility] of services. Groceries to be delivered to home as per Luciana's routine.
[2023-10-20] MEDS: ADVAIR HFA 115/21 MCG INHALER INH (20:09)
[2023-10-20] MEDS: MIRALAX PO (20:09)
[2023-10-20] MEDS: PROTONIX 40 MG PO (20:10)
[2023-10-20] MEDS: SINGULAIR 10 MG PO (20:10)
[2023-10-20] MEDS: CRESTOR 20 MG PO (20:10)
[2023-10-20] MEDS: MUCINEX 600 MG PO (20:10)
[2023-10-20 23:30] VITALS: BP 114/51
[2023-10-21 04:10] VITALS: BMI 39.9
[2023-10-21] MEDS: CARAFATE 1 GRAM PO ×2 (05:56→16:04)
[2023-10-21] MEDS: ADVAIR HFA 115/21 MCG INHALER INH ×2 (07:38→20:17)
[2023-10-21 07:55] VITALS: BP 108/71
--- NOTE | 2023-10-21 08:42 | RESPNOTE ---
patient does not walk and can only pivot into wheelchair, patient has desaturation on room air ,
--- NOTE | 2023-10-21 09:13 | CM ---
Luciana is discharged to home today via friends transport; [facility] confirmed plan for resumption of services. Groceries to be delivered to home as per Luciana's routine. No other needs identified at this time.
Plan: Discharge to home with [facility] for SN, PT, OT and WIRE FENCE ERECTOR. Transportation to be provided by a friend/neighbor.
PCP: Qiana Rodriguez [phone]
[2023-10-21] MEDS: MIRALAX PO ×2 (09:25→19:05)
[2023-10-21] MEDS: LASIX 80 MG PO (09:25)
[2023-10-21] MEDS: PROTONIX 40 MG PO ×2 (09:26→21:13)
[2023-10-21] MEDS: ALDACTONE 25 MG PO (09:26)
[2023-10-21] MEDS: ELIQUIS 5 MG PO ×2 (09:26→21:13)
[2023-10-21] MEDS: SENOKOT-S 1 TABLET PO (09:26)
[2023-10-21] MEDS: THERAGRAN 1 TABLET PO (09:26)
[2023-10-21] MEDS: ProAmatine 10 MG PO ×2 (09:26→16:04)
[2023-10-21] MEDS: KCL 40 MEQ PO (09:26)
[2023-10-21] MEDS: DESITIN MAXIMUM STRENGTH PASTE 1 APPLIC TOPICAL ×2 (09:27→21:16)
--- NOTE | 2023-10-21 10:46 | W.DCSUMMARY ---
Discharge Summary
Discharge Data
Date of Admission: 10/12/23
Date of Discharge: 10/22/23
-
Pending Results: No
Hospital Course
68 years old female admitted with history of fatigue and melena for a few weeks. Patient was scheduled to have GI workup in the outpatient setting. Patient also reported infrequent epistaxis. Patient was taking Eliquis for history of atrial
fibrillation. Cardiology evaluated the patient and there was no prohibitive reason to proceed with gastrointestinal workup. Patient was evaluated by gastroenterology. She underwent upper endoscopic evaluation that showed esophagitis. Colonoscopy
showed diverticulosis, internal hemorrhoids, 5 mm polyp in the ascending colon that was removed. Legal Examiner recommended to repeat colonoscopy in 1 year. Gastroenterology doctor recommended Protonix twice a day for 8 weeks and follow-up in
the outpatient setting to repeat upper endoscopy. Patient did not have recurrent bleeding or epistaxis. Hemoglobin stabilized around 12. Eliquis was resumed. She had chronic constipation was advised to continue MiraLAX daily. Patient reported
cough for few weeks duration. Scan of the chest was consistent with congestive heart failure. Patient had history of mildly reduced left ventricular ejection fraction around 50-55%. Her proBNP was elevated with normal renal function. She was
started on intravenous diuretic therapy and she started to improve. No evidence of respiratory infection. Patient was using oxygen at night. She was noticed to have hypoxia during daytime even without ambulation. Patient had underlying limited
mobility. She was advised to continue on oxygen therapy during the day also and follow-up with her primary care doctor. Patient was instructed to monitor her oxygen saturation at home through pulse oximetry. Patient remained hemodynamically
stable. She reported improvement of her cough. She had chronic mild hyponatremia. Urine culture was positive for Escherichia coli. She did not have urinary symptoms. She was diagnosed with uncomplicated cystitis and finished 3 days course of
cefazolin. She did not have chest pain. She was evaluated by physical therapy. Recommended home health services. Patient was discharged in stable condition.
Physical Exam
-
General: Well Developed, Well Nourished, Comfortable, Appears Chronically Ill, Morbidly Obese
HEENT: Normocephalic, Atraumatic and Oxygen (nc )
Respiratory: limited, less basal rales, no wheezes.
Cardiac: Regular Rhythm and S1/S2
GI: Soft, Nontender, Nondistended and Normal Bowel Sounds
Musculoskeletal: No Clubbing and No Cyanosis
Skin: Warm
Neuro: Awake, Alert, Oriented and AO x 3, she followed commands. Seems at baseline.
Psych: Calm and Intact Judgement/Insight
Total discharge time spent to see the patient, examine the patient on the floor, review data and lab results, discuss discharge plan with patient, nursing staff around 65 minutes
Discharge Plan
-
Patient Disposition: Home with Home Care
Discharge Diagnosis/Procedures: Melena /acute blood loss anemia secondary to suspected esophagitits versus less likely epistaxis, bleeding is exacerbated by Eliquis. Continue on Protonix twice a day and follow-up with gastroenterology
E.coli UTI , finished antibiotics to treat
Constipation, continue on MiraLAX daily
Chronic hypoxic respiratory failure, continue oxygen therapy for now
Chronic hyponatremia
Acute on chronic heart failure with mildly reduced ejection fraction
Condition: Fair
Diet: Low Fat, 2 Gram Sodium and Restrict fluids to 48 oz
Activity: With assistance and As tolerated
Driving Restrictions: As prior to admission
Referrals:
Clarita Anaya MD [Active] - in one to two months
Qiana Rodriguez MD [Family Provider] - in less than 1 week
Lis Sahu CRNP [Specified Professional Personl] - 10/29/23 11:20 am
Prescriptions:
New
sucralfate 1 gram Tablet
1 g PO BID@0700,1600 Qty: 60 0RF
pantoprazole 40 mg Tablet,Delayed Release (Dr/Ec)
40 mg PO BID Qty: 60 0RF
Continued
montelukast 10 mg Tablet
10 mg PO HS
Eliquis 5 mg Tablet
5 mg PO BID Qty: 60 0RF
rosuvastatin 20 mg Tablet
20 mg PO HS
fluticasone propion-salmeterol [Wixela Inhub] 250-50 mcg/dose Blister With Device
2 inh INHALATION R BID
therapeutic multivitamin Tablet
1 tab PO DAILY Qty: 0
potassium chloride 20 mEq tablet extended release
40 meq PO DAILY Qty: 0 0RF
midodrine 10 mg tablet
10 mg PO BID
Desitin 40 % Paste
1 applic TOPICAL BID
Patient Comments:
apply to sacrum
spironolactone [Aldactone] 25 mg tablet
25 mg PO DAILY
furosemide [Lasix] 80 mg tablet
80 mg PO DAILY
guaifenesin 600 mg tablet extended release 12hr
600 mg PO HS
polyethylene glycol 3350 [HealthyLax] 17 gram powder in packet
17 g PO DAILY Qty: 30 0RF
Changed
docusate sodium 100 mg capsule
100 mg PO BID Qty: 0 0RF
Discontinued
pantoprazole 40 mg Tablet,Delayed Release (Dr/Ec)
40 mg PO DAILY Qty: 0 0RF
Discharge Orders:
Discharge Patient (As Directed); Ordered 10/21/23
Ordered By: Linus Sahu
Discharge Date and Time
Discharge Date/Time: 10/22/23 18:01
Print Language: ARABIC
--- NOTE | 2023-10-21 11:39 | PTCARENOTE ---
RN took patients oxygen level off NC and it was 90% on room air. Pt does not have anyone who can get her home O2 tank and bring it into hospital for her to d/c with. RT unable to do home O2 walk test due to pt being unable to walk. RN made case
enterprise manager and MD aware.
--- NOTE | 2023-10-21 11:59 | PN.CDI ---
Addendum entered and electronically signed by Linus Sahu MD 10/21/23 13:02:
systolic
Addendum entered and electronically signed by Linus Sahu MD 10/21/23 12:45:
Reaching out to you to understand the question
Original Note:
CDI
- -
CDI:
Physician Documentation Request
Admit Date: 10/12/23 17:59
Dear Doctor Luis Alberto,
10/18 hospitalist progress note states 'CT chest and Pro-BNP w/ acute HF. Dx acute on chronic HFrEF'
10/13 cardiology consult state patient has chronic HFpEF
10/18 cardio note 'HFpEF, acute'
Echo 07/26/23 reports and EF of 50-55%
In an attempt to clarify potential conflicting documentation, please clarify the type of CHF you are evaluating, treating or monitoring.
Type
Systolic
Diastolic
Other
Use of terms such as suspected, likely, concern for, or probable (associated with a specific diagnosis that is being evaluated, monitored, or treated as if it exists) are acceptable and can be coded in the inpatient setting, when documented at the
time of discharge.
Thank you,
Janet BOYLEN
CDI Specialist
tiger text
Please use your independent medical judgment in providing your response.
[2023-10-21 14:12] VITALS: BP 119/73
--- NOTE | 2023-10-21 14:28 | PTCARENOTE ---
Patient now stating she does not want to go home as she does not have a ride and is feeling more weak. RN took vital signs and they are stable. RN let MD aware of patient not wanting to go home due to weakness. Pt was not convinced MD looked at
patients daily weights and feels like 'she needs more fluid to come off of her'...RN assured patient daily weights are done every morning from 4-6 am and that MD's check pt weighs every morning if they are a heart failure patient.
[2023-10-21 15:14] VITALS: BP 114/73
--- NOTE | 2023-10-21 16:02 | CM ---
Luciana has been ready for discharge, however today she stated she did not have anyone to pick her up. In previous conversations she had stated that she did have a ride. RN and CM met with Luciana together to confirm plan for discharge;
would like Luciana to go home with O2 during transport; Luciana unwilling to pay for w/c van with O2, and insistent she does not need O2 for the drive home. Pt has home O2 and a portable tank (confirmed by Nima Luther of [employer] that portable
tank was delivered to the home in July,). RN and CM reiterated need for portable O2 to be brought to the hospital by friends picking her up. [facility] is being resumed.
Plan: Discharge to home with resumption of [facility]. updated throughout the day.
[2023-10-21] MEDS: CRESTOR 20 MG PO (21:14)
[2023-10-21] MEDS: SINGULAIR 10 MG PO (21:14)
[2023-10-21] MEDS: MUCINEX 600 MG PO (21:14)
[2023-10-21 23:30] VITALS: BP 111/73
[2023-10-22 05:09] VITALS: BMI 39.9
[2023-10-22] MEDS: CARAFATE 1 GRAM PO (05:34)
[2023-10-22 07:15] VITALS: BP 104/63
[2023-10-22] MEDS: ADVAIR HFA 115/21 MCG INHALER 2 PUFF INH (07:51)
--- NOTE | 2023-10-22 09:54 | CM ---
Addendum entered by Allyson Chew 10/22/23 11:40:
[facility] to resume services at discharge.
Original Note:
Davin met with Luciana this am to discuss discharge today. She advised that she has a friend who will pick her up this evening after he is done working. I asked Luciana if he was able to get into her house to bring the portable oxygen to the
hospital. Luciana stated that he and his have access to get into her house and will be able to bring it for the ride home.
Case discussed with Rachel Dahl RN who sent a tiger text to Dr. Sahu to update regarding the plan per Luciana.
W/C Van transport offered, however Luciana states she cannot afford it because she has so many bills already. She inquired about ambulance, however since she is alert and oriented and able to sit in a wheelchair, insurance will not cover
ambulance transport.
Plan: Per Luciana, she will have a ride and portable O2 brought for discharge to home this evening.
[2023-10-22] MEDS: SENOKOT-S PO (09:59)
[2023-10-22] MEDS: KCL 40 MEQ PO (10:00)
[2023-10-22] MEDS: MIRALAX PO (10:00)
[2023-10-22] MEDS: LASIX 80 MG PO (10:00)
[2023-10-22] MEDS: PROTONIX 40 MG PO (10:00)
[2023-10-22] MEDS: ProAmatine 10 MG PO (10:00)
[2023-10-22] MEDS: ALDACTONE 25 MG PO (10:01)
[2023-10-22] MEDS: ELIQUIS 5 MG PO (10:01)
[2023-10-22] MEDS: THERAGRAN PO (10:01)
[2023-10-22] MEDS: DESITIN MAXIMUM STRENGTH PASTE 1 APPLIC TOPICAL (10:02)
--- NOTE | 2023-10-22 10:02 | W.PN.HOSP.TC ---
Today's Communication/Plan
-
six sigma project manager is consulted to help with discharge
Frequent hospitalizations. 6 times since 2023, every month. Patient denied feeling unsafe at home but obviously, her medical problems are not well managed on her won !
Assessment / Plan
Assessment / Plan
Physical Exam
-
General: Well Developed, Well Nourished, Comfortable, Appears Chronically Ill, Morbidly Obese
HEENT: Normocephalic, Atraumatic and Oxygen (nc )
Respiratory: limited, some rales at bases.
Cardiac: Regular Rhythm and S1/S2
GI: Soft, Nontender, Nondistended and Normal Bowel Sounds
Musculoskeletal: No Clubbing and No Cyanosis
Skin: Warm
Neuro: Awake, Alert, Oriented and AO x 3
Psych: Calm and Intact Judgement/Insight
# Acute on chronic HFrEF
started on high dose Lasix 80 mg BID with good clinical response
Added daily weight to compare
# Melena secondary to suspected upper GI bleeding versus less likely epistaxis exacerbated by Eliquis
-Patient has only had 2 episodes of epistaxis in the last few weeks, unlikely to explain melena
-Hemoglobin holding so far. No significant drop
-Protonix BID for 2 months until EGD and then once a day and thereafter. ok to switch to oral PPI.
-s/p EGD/Colon on 10/14-endoscopy with esophagitis and upper esophagus could be reflux induced. No evidence of active GI bleeding but evidence of previous gastric lap band noted. Single polyp removed from ascending colon. GI recommending repeat
endoscopy in 2 months to check healing.
-GI consulted
-Monitored follow-up polyp biopsy results outpatient with GI
#E.coli UTI
-Finished course of 3 days of cefazolin
# Constipation
-Continue MiraLAX, docusate
# Recent epistaxis
-Most recently yesterday from right nostril, now resolved
Paroxysmal atrial fibrillation
-Restarted Eliquis.
Chronic HFrEF on 2 L at nighttime
Chronic hypoxic resp insufficiency
-Continue Lasix
-Continue spironolactone
-Discussed with cardiology is no need for repeat echocardiogram as one done recently.
Essential hypertension
History of hypotension
-Continue midodrine
Allergic asthma
-Continue inhalers
-Continue montelukast
Chronic hyponatremia
Suspected obstructive sleep apnea
Obesity
Breast cancer
Prior CVA
Hyperlipidemia
-Continue statin
Morbid obesity due to excess calories
Sleep study as outpatient with pulmonary.
Suspected osteoarthritis with lumbar radiculopathy
Hypokalemia-replete/monitor
Full code
DVT prophylaxis�SCDs in setting of GIB
PT OT postprocedure recs SNF. Pt wants home VN on dc.
Total time spent to see the patient, examine the patient on the floor, review data and lab results, discuss treatment plan with patient, nursing staff around 55 minutes
Anticipated Discharge: Today
Subjective/Interval History
-
Date of Service: October 22, 2023
No worsening hypoxia or sob
Objective Data
-
Vital Signs:
Vital Signs
Temp Pulse Resp BP Pulse Ox
98.3 F 78 20 104/63 93
10/22/23 07:15 10/22/23 08:00 10/22/23 08:00 10/22/23 07:15 10/22/23 08:00
I&O
10/21/23 10/22/23 10/23/23
06:59 06:59 06:59
Intake Total 900 / 900 1640 / 1640
Output Total 400 / 400
Balance 500 / 500 1640 / 1640
--- NOTE | 2023-10-22 11:58 | PTCARENOTE ---
Patient told RN and CM that her friend will be picking her up this evening at 1800 and that they will be bringing in her transport oxygen tank for the car ride home. RN reviewed all d/c instructions with patient, pt states she has no further
questions for RN. RN encourages pt to get out of bed and sit in chair/encourage ADL's as she is about to d/c home with visiting nurses.
[2023-10-22 15:18] VITALS: BP 109/65
--- NOTE | 2023-10-22 17:30 | CM ---
Addendum entered by Allyson Chew 10/22/23 17:32:
Acute Care to transport via w/c van.
Original Note:
Luciana's ride for today fell through. [facility] is paying for w/c van transport with O2 to make sure Luciana gets home safely.
Plan: Luciana will have [facility] services at home. She denies any other needs.
[2023-10-22] MEDS: CARAFATE PO (17:38)
== END 2023-10-22 18:01 | disposition home health service (06) | DRG 368 ==
LOC: 4 EAST ACU 17:59
PROVIDERS: Hospitalist; Internal Medicine Gastroenterology; ADMITTING PHYSICIAN Hospitalist; ATTENDING PHYSICIAN Internal Medicine; CONSULT PHYSICIAN Internal Medicine; EMERGENCY PHYSICIAN Student in an Organized Health Care Education/Training Program; FAMILY PHYSICIAN Family Medicine
PROC: 0DJ08ZZ Inspection of Upper Intestinal Tract, Via Natural or Artificial Opening Endoscopic (ICD-10-PCS; 2023-10-15)
PROC: 0DBK8ZX Excision of Ascending Colon, Via Natural or Artificial Opening Endoscopic, Diagnostic (ICD-10-PCS; 2023-10-15)
DX: K20.91 Esophagitis, unspecified with bleeding (principal); I50.23 Acute on chronic systolic (congestive) heart failure; D68.32 Hemorrhagic disorder due to extrinsic circulating anticoagulants; N39.0 Urinary tract infection, site not specified; Z68.41 Body mass index [BMI] 40.0-44.9, adult; E87.1 Hypo-osmolality and hyponatremia; K92.1 Melena; J96.11 Chronic respiratory failure with hypoxia; B96.20 Unspecified Escherichia coli [E. coli] as the cause of diseases classified elsewhere; E66.01 Morbid (severe) obesity due to excess calories; D12.2 Benign neoplasm of ascending colon; K57.30 Diverticulosis of large intestine without perforation or abscess without bleeding; K64.8 Other hemorrhoids; K59.09 Other constipation; I11.0 Hypertensive heart disease with heart failure; E87.6 Hypokalemia; Z98.84 Bariatric surgery status; Z79.01 Long term (current) use of anticoagulants; Z86.73 Personal history of transient ischemic attack (TIA), and cerebral infarction without residual deficits
CPT/HCPCS: 88305; 71046; 71250; 74019; 80048; 80053; 81003; 81015; 83880; 85025; 85610; 85730; 87086; 87088; 87186; 87205; 93005; 94640; 97162; 97166; 97530; 99285

== ENCOUNTER 2023-10-30 23:35 | Inpatient (IN) | payer MEDICARE, OTHER, SELFPAY ==
[2023-10-30 21:04] VITALS: BP 125/70
[2023-10-30 21:06] VITALS: BP 125/70
--- NOTE | 2023-10-30 21:07 | ED.GENMED ---
History of Present Illness
General
Chief Complaint: Breathing Problem
Source: patient
Exam Limitations: none
Time Seen by Provider: 10/30/23 20:53
History of Present Illness
History of Present Illness:
This is a 68 year old female that comes in by ambulance with c/o chest pain and SOB. States that this started 2 days ago and that she was up all night last night. States that she has no appetite. States that she called Dr. Montes and so she came to
the Hospital. States that she has had diarrhea and a headache. Denies any fever, chills, abd pain, nausea, vomiting, dizziness, urinary burning.
Past History
Past History
ED Past Medical History: Arrthythmia (Atrial fib), Asthma, Cancer (breast, Skin), CHF, CVA (TIA), GERD, HTN, Hypercholesterolemia, Psychiatric (Anxiety, PTSD), Other (RAMY, PNA, Sleep apnea, Various Vein, Peptic ulcer) and Other (mvp)
ED Past Surgical History: Cardiac (pacemaker, Ablation), Cholecystectomy, , Tonsilectomy and Other ( Left breast lumpectomy with aixllary lymph nodes, Hernia, Gastric bypass)
Social History
Tobacco: Former smoker
Alcohol: None
Drug: None
Personal: Single ('pham')
Living: alone
Employment: Not employed
Review of Systems
Review of Systems
All Other Systems: ROS reviewed and negative except as documented in HPI and ROS
Constitutional: Reports no symptoms; Denies fever or chills
EENT: Reports no symptoms
Respiratory: Reports trouble breathing; Denies cough
Cardiac: Reports chest pain
ABD/GI: Reports diarrhea; Denies abdominal pain, nausea or vomiting
: Reports no symptoms; Denies dysuria, frequency or urgency
Musculoskeletal: Reports no symptoms
Skin: Reports no symptoms
Neurological: Reports headache; Denies dizzy
Psychiatric: Reports no symptoms
Phy Exam
General Physical Exam
General Presentation: no apparent distress
General age: appears stated age
General Skin: warm and dry
General Habitus: elderly and obese
General Mental: alert
General Hydration: appears well hydrated
ENT Exam
ENT Exam: TM's normal, pharynx normal and neck supple
Eye Exam
Eye Exam: EOMI
Cardiovascular Exam
Cardiovascular Exam: no edema, normal peripheral pulses and pacemaker
Pulmonary Exam
Pulmonary Exam: no respiratory distress, chest non tender, no rhonchi, no wheezing, no cough and other (rales at bases)
Gastrointestinal Exam
Gastrointestinal Exam: non tender, soft, no organomegaly, no pulsatile mass, non distended and other (obese, hypoactive bowel sounds)
Musculoskeletal Exam
Musculoskeletal Exam: full ROM and no edema
Skin Exam
Skin Exam: normal color, warm/dry, no rash and no petechia
Psychiatric Exam
Psychiatric Exam: normal mood/affect
Scores
Heart Failure Risk
Heart Failure Risk Score: Yes
History of Stroke or TIA: Yes
History of intubation for respiratory distress: No
Heart rate on ED arrival >/= 110: No
SaO2 <90% on arrival on room air: No
HR >/=110 during 3min walk test (or too ill to perform test): Yes
ECG has acute ischemic changes: No
Urea >/=12mmol/L (BUN 33.6mg/dL): No
Serum CO2>/=35mmol/L: No
Troponin I or T elevated to GA Level (0.4mg/dL): No
NT-proBNP >/=5,000ng/L (5,000pg/ml): Yes
HF Risk Score: 4
Admission Status: HIGH RISK 26.1% Consider SNF treatment or admission to hospital
Course
Orders/Labs/Results
Orders:
Orders
10/30/23 20:57
Electrocardiogram (*1) Urgent
Reason for Study: Chest Pain
EKG- Treatment ONCE
10/30/23 21:06
CR Chest - 2 Views Urgent
Comment:
Reason For Exam: chest pain, SOB
10/30/23 21:09
Complete Blood Count/With Diff Urgent
Comprehensive Metabolic Panel Urgent
NT-proBNP Urgent
Troponin I Q3H
10/30/23 22:23
Furosemide [Lasix] 80 mg IV NOW STA
10/30/23 22:29
EKG- Treatment ONCE
10/30/23 23:00
Flush (0.9% Sodium Chloride) [Flush (Nss)] See Dose Instructions IV PER PROTOCOL
10/31/23 00:00
Electrocardiogram (*1) Urgent
Reason for Study: Chest Pain
Other Reason for Exam: Repeat with Troponin
10/31/23 00:15
Troponin I Urgent
Abnormal Lab Results
10/30/23
21:09
WBC 13.2 H 10^3/uL
(4.8-10.8)
RBC 3.95 L 10^6/uL
(4.20-5.40)
Hct 36.6 L %
(37.0-47.0)
MCHC 32.8 L g/dL
(33.0-37.0)
RDW 16.0 H %
(11.5-14.5)
Plt Count 489 H 10^3/uL
(130-400)
Abs Immat Gran (auto) 0.2 H 10^3/uL
(0-0.05)
Absolute Neuts (auto) 10.5 H 10^3/uL
(1.4-6.5)
Absolute Monos (auto) 0.7 H 10^3/uL
(0.1-0.6)
Immature Gran % 1.3 H %
(0-0.5)
Neutrophils % 79.6 H %
(42.2-75.2)
Lymphocytes % 10.8 L %
(20.5-51.1)
Sodium 131 L mmol/L
(135-145)
Carbon Dioxide 21 L mmol/L
(22-30)
Creatinine 0.5 L mg/dL
(0.6-1.0)
Glucose 106 H mg/dl
(70-99)
Total Bilirubin 1.8 H mg/dl
(0.2-1.3)
Alkaline Phosphatase 129 H U/L
(38-126)
Albumin 2.6 L g/dl
(3.5-5.0)
10/30/23 21:09
10/30/23 21:09
Leukocytosis, Plt slightly elevated. Sodium slightly low. glucose nonfasting. Total brenda elevation. Alk phos slightly elevated. Albumin low. Troponin <0.012, Pro-BNP 8700
Second troponin <0.012
Vital Signs
Initial and Last Documented VS:
Initial Vital Signs
Temp Pulse Resp Pulse Ox
97.7 F 78 18 90
10/30/23 20:55 10/30/23 20:55 10/30/23 20:55 10/30/23 20:55
Last Documented Vital Signs
Temp Pulse Resp BP Pulse Ox
98.3 F 72 18 119/67 95
10/31/23 01:42 10/31/23 01:42 10/31/23 01:42 10/31/23 01:42 10/31/23 01:42
MDM/Problems Addressed
Differential Diagnosis Includes:
CHF, Social issues
MDM/Problems Addressed:
This is a 68 year old female that comes in with c/o chest pain and SOB. States that this has been going on for 2 days. States that she also has no appetite.
will check labs. chest x-ray.
Back into see patient. Explained that her x-ray shows CHF. Will admit patient. Hospitalist notified.
Chronic conditions affecting care: CAD and Asthma
Acute Exacerbation and/or Progression of Chronic Illness: CAD and Asthma
*Pulse Oximetry
Patient hypoxic: no
Comment: wears Oxygen at home
*EKG
Interpreted by ED Provider?: Yes
Heart Rate: 77
Rate: normal
Rhythm: ventricular paced
*Switching Operator Interpretation
Rate: normal
Heart Rate: 71
Rhythm: ventricular paced
*Critical Care Note
Total Time (30-74mins, 75-104mins- exclusive of procedures): Not Applicable
ED Attending Note
-
Portions of this chart may have been created with voice recognition software.� Occasional wrong word or��sound alike� substitutions may have occurred due to the inherent limitations of voice recognition software.
Discharge Plan
Departure
Patient Disposition: Admit
Date of Disposition: 10/30/23
Time of Disposition: 22:28
Admit to: Telemetry
Presentation/result/management discussed w/ accepting MD/DO: Hospitalist
Patient with high blood pressure during this ER visit?: No
Condition: Good
Discharge Problem:
CHF (congestive heart failure), SOB (shortness of breath)
Interventions
Interventions:
*Risk Screen - Suicide Last Done: 10/30/23 20:58
*General Assessment Last Done: 10/30/23 20:58
*Neglect/Abuse Screening Last Done: 10/30/23 20:58
*Nursing Disposition Last Done: 10/31/23 01:24
ED- Cardiac Assessment Last Done: 10/30/23 21:02
ED- Pulmonary Assessment Last Done: 10/30/23 21:02
Discharge Date and Time
Discharge Date/Time: 10/31/23 01:25
[2023-10-30 21:27] LABS: % Basophils 0.7 % (0-2); % Eosinophils 2.7 % (0-6); % Immature Granulocytes 1.3 % (0-0.5); % Lymphocytes 10.8 % (20.5-51.1); % Monocytes 4.9 % (1.7-9.3); % Neutrophils 79.6 % (42.2-75.2); Absolute Basophils 0.1 10^3/uL (0-0.2); Absolute Eosinophils 0.4 10^3/uL (0-0.7); Absolute Immature Granulocytes 0.2 10^3/uL (0-0.05); Absolute Lymphocytes 1.4 10^3/uL (1.2-3.4); Absolute Monocytes 0.7 10^3/uL (0.1-0.6); Absolute Neutrophils 10.5 10^3/uL (1.4-6.5); Hematocrit 36.6 % (37.0-47.0); Mean Corp Hgb Conc. 32.8 g/dL (33.0-37.0); Mean Corpuscular Hgb 30.4 pg (27.0-31.0); Mean Corpuscular Volume 92.7 fL (81.0-99.0); Mean Platelet Volume 9.8 fL (7.4-10.4); Nucleated Red Blood Cells % 0.2 %; Platelet Count 489 10^3/uL (130-400); Red Blood Cell Count 3.95 10^6/uL (4.20-5.40); White Blood Cell Count 13.2 10^3/uL (4.8-10.8)
[2023-10-30 21:45] LABS: ALT (SGPT) 14 U/L (0-35); AST (SGOT) 33 U/L (14-36); Albumin 2.6 g/dl (3.5-5.0); Alkaline Phosphatase 129 U/L (38-126); Blood Urea Nitrogen 16 mg/dl (7-17); Calcium 8.8 mg/dl (8.4-10.2); Carbon Dioxide 21 mmol/L (22-30); Chloride 101 mmol/L (98-107); Glucose 106 mg/dl (70-99); Potassium 4.4 mmol/L (3.5-5.1); Sodium 131 mmol/L (135-145); Total Bilirubin 1.8 mg/dl (0.2-1.3); Total Protein 7.1 g/dl (6.3-8.2); eGFR > 60.00
[2023-10-30 21:51] LABS: NT-proBNP 8700 pg/ml; Troponin I < 0.012 ng/ml
[2023-10-30] MEDS: LASIX 80 MG IV (22:31)
--- NOTE | 2023-10-30 23:22 | HPS.HSE ---
Family Physician
-
Family Physician: Qiana Rodriguez
Chief Complaint
-
Chest pain and SOB
History of Present Illness
68 year old woman with c/o chest pain and SOB. She says that this started 2 days ago and that she was up all night last night and that she has no appetite. She called Dr. Montes and then came to the Hospital. She has had diarrhea and a headache. She
denies any fever, chills, abd pain, nausea, vomiting, dizziness, urinary burning. At the time of my interview she had receive IV lasix in the ED and was more comfortable.
Medical History
Past Medical History
Past Medical History: Reports Other
Additional Past Medical History:
Atrial fib
Asthma,
Cancer (breast, Skin),
CHF,
CVA
(TIA),
GERD,
essential HTN,
Hypercholesterolemia,
Anxiety,
PTSD
RAMY,
PNA,
Sleep apnea,
Various Vein issues,
Peptic ulcer
mvp
pacemaker,
Ablation
Cholecystectomy
,
Tonsilectomy
Left breast lumpectomy with aixllary lymph nodes,
Hernia,
Gastric bypass
Past Surgical History: Reports Other
Additional Past Surgical History:
See above
Social History
Tobacco: Non-smoker
Alcohol: None
Drug: None
Family History
Family History: Not pertinent
Allergies / Home Medications
Allergies reflects when Allergies were last updated in [facility].
Home Medications with original date entered in [facility]
Allergy/Medication List:
Allergies
Allergy/AdvReac Type Severity Reaction Status Date / Time
codeine AdvReac 'loopy' Verified 10/30/23 20:54
Home Medications
montelukast 10 mg tablet 10 mg PO HS Lung/breathing issues 06/23/22
apixaban 5 mg tablet (Eliquis) 5 mg PO BID #60 tabs 07/01/22
rosuvastatin 20 mg tablet 20 mg PO HS High Cholesterol 02/17/23
fluticasone 250 mcg-salmeterol 50 mcg/dose blistr powdr for inhalation (Wixela Inhub) 2 inh inhalation R BID 02/22/23
therapeutic multivitamin 1 tab PO DAILY Supplement ##0 04/16/23
potassium chloride 20 mEq tablet,extended release 40 meq (2 x 20 mEq) PO DAILY #0 tabs 09/02/23
furosemide 80 mg tablet (Lasix) 80 mg PO DAILY Fluid retention/Swelling 10/12/23
guaifenesin 600 mg tablet, extended release 12 hr 600 mg PO HS 10/12/23
midodrine 10 mg tablet 10 mg PO BID 10/12/23
spironolactone 25 mg tablet (Aldactone) 25 mg PO DAILY Fluid Retention/Swelling 10/12/23
zinc oxide-cod liver oil 40 % topical paste (Desitin) 1 applic topical BID 10/12/23
docusate sodium 100 mg capsule 100 mg PO BID #0 caps 10/16/23
sucralfate 1 gram tablet 1 g PO BID@0700,1600 #60 tabs 10/16/23
pantoprazole 40 mg tablet,delayed release 40 mg PO BID #60 tabs 10/21/23
polyethylene glycol 3350 17 gram oral powder packet (HealthyLax) 17 g PO DAILY #30 ea 10/21/23
Review of Systems
-
History Source: Patient
A 12 point ROS was completed and negative except as noted: Yes
Physical Exam
Vital Signs
Vital Signs
Temp Pulse Resp BP Pulse Ox
98.5 F 70 23 141/80 96
10/30/23 21:04 10/30/23 22:31 10/30/23 22:15 10/30/23 22:31 10/30/23 22:15
Physical Exam
General: Well Developed, Well Nourished, No Apparent Distress, Comfortable, Conversant, Appears Chronically Ill and Obese
HEENT: Moist mucous membranes, Nose Appears Normal and Ears Appear Normal
Respiratory: Crackles and Decreased Breath Sounds
Cardiac: S1/S2 and Regular Rhythm
GI: Soft, Non Tender and Non Distended
Musculoskeletal: No Clubbing, No Cyanosis and No Edema
Skin: Warm and Dry; No Rash or Jaundice
Neuro: Awake, Alert, Oriented and AO x 3
Psych: Calm
Laboratory Results
-
10/30/23 21:09
10/30/23 21:09
Laboratory Results
Total Bilirubin 1.8 mg/dl (0.2-1.3) H 10/30/23 21:09
AST 33 U/L (14-36) 10/30/23 21:09
ALT 14 U/L (0-35) 10/30/23 21:09
Alkaline Phosphatase 129 U/L (38-126) H 10/30/23 21:09
Troponin I < 0.012 ng/ml 10/30/23 21:09
Data Reviewed
-
Lab Data: Labs Reviewed by me
Impression/Plan
-
IMPRESSION:
68 woman with heart failure.
PLAN:
1. Heart failure. On 10/20/23, she was seen by [facility] cardiology who commented:
'68F with persistent atrial fibrillation (PVI x 2 in 2022), pacemaker and AVN ablation 08/2023, HFpEF, moderate mitral stenosis, hypertension, CVA (1988), breast cancer (surgery/chemotherapy/XRT 2010), obesity, and lymphedema
HFpEF, acute
-Will transition from furosemide 80 mg IV twice daily back to furosemide 80 mg daily tomorrow, which should be her home dose.
-Sodium restriction was added to her diet in addition to fluid restriction.'
Plan is to try the same plan again this time.
Also:
MONCHO
Telemetry
Cards consult
2. WBC of 13.2 - no obvious source of infection, could be stress reaction.
Follow closely
Repeat in am
3. Na of 131 - likely hypervolemic hyponatremia
Diurese
restrict Na
Recheck in am
Full code
VCD for DVTP, also eliquis
[2023-10-31] VITALS (7 sets, daily range): BP systolic 92–146; BP diastolic 50–80; BMI 47.3
[2023-10-31 00:51] LABS: Troponin I 0.012 ng/ml
--- NOTE | 2023-10-31 05:50 | PTCARENOTE ---
Pt admitted to unit from ED. Pt pulled over into bed by nursing staff from [facility]. Pt admitted on 4L NC. HOB raised. Pt reports 'slight' SOB, lightheadedness, and dizziness. HOB raised above 30 degrees. After admissions completed; pt denied SOB,
lightheadedness, and dizziness. Pt oriented to room with call simon in reach. Plan of care ongoing.
[2023-10-31] MEDS: CARAFATE 1 GRAM PO ×2 (06:17→16:04)
[2023-10-31 07:38] LABS: Hematocrit 37.3 % (37.0-47.0); Hemoglobin 11.7 g/dL (12.0-16.0); Mean Corp Hgb Conc. 31.4 g/dL (33.0-37.0); Mean Corpuscular Hgb 30.2 pg (27.0-31.0); Mean Corpuscular Volume 96.4 fL (81.0-99.0); Mean Platelet Volume 9.9 fL (7.4-10.4); Platelet Count 453 10^3/uL (130-400); Red Blood Cell Count 3.87 10^6/uL (4.20-5.40); Red Cell Dist. Width 16.1 % (11.5-14.5); White Blood Cell Count 12.3 10^3/uL (4.8-10.8)
[2023-10-31 07:49] LABS: Troponin I < 0.012 ng/ml
[2023-10-31] MEDS: ADVAIR HFA 115/21 MCG INHALER 2 PUFF INH ×2 (08:00→18:21)
[2023-10-31 08:15] LABS: Blood Urea Nitrogen 16 mg/dl (7-17); Calcium 8.5 mg/dl (8.4-10.2); Carbon Dioxide 22 mmol/L (22-30); Chloride 102 mmol/L (98-107); Estimated Creatinine Clearance 104 ml/min; Glucose 110 mg/dl (70-99); Magnesium 1.8 mg/dl (1.6-2.3); Sodium 135 mmol/L (135-145); eGFR > 60.00
--- NOTE | 2023-10-31 09:08 | W.PN.HOSP.TC ---
Today's Communication/Plan
-
see bold
Assessment / Plan
Assessment / Plan
HPI: 68 y/o female with persistent AFIB on Eliquis, hx PVI 2022- repeat 02/2023, pacemaker and AVN ablation 08/2023, HFpEF, moderate MS, HTN, CVA 1988, breast cancer 2010 with hx chemo/surgery/radiation, obesity, lymphedema. Patient with recent
hospitalization and subsequent discharge 10/22/23. patient was reported to have black stools and had endoscopy and colonoscopy 10/15/2023 evidence of esophagitis. Anticoagulation was resumed. Patient did receive additional IV Lasix for treatment of
heart failure during that admission and was transition to Lasix 80 mg daily. She states she is compliant with her medications her weights have not changed.
#Acute heart failure with reduced ejection fraction
#Shortness of breath
Appreciate cardiology input, continue IV diuresis, trend creatinine, trend daily weights
Continue spironolactone
#Chronic hypoxic respiratory failure
Due to the above
Currently requiring 4 L, wean as tolerated
She wears 2 L at home
#Allergic asthma
#Chronic cough
#Suspected obstructive sleep apnea
Continue Singulair, bronchodilators
#Persistent atrial fibrillation
Status post AV chris ablation with pacemaker
Continue Eliquis
#Esophagitis
Continue PPI twice daily for 2 months after EGD on 10/14, then daily
Continue Carafate
#Chronic hypotension
Continue midodrine 10 mg twice a day
#History of stroke
Continue statin
#Morbid obesity due to excess calories
Affects all aspects of care
#History of breast cancer
Status post chemo/surgery/radiation
DVT prophylaxis�Eliquis
Full code
Total time spent to see the patient on the floor, examine the patient, review data and lab results, discuss treatment plan with patient, nursing staff around 51 minutes.
Physical Exam
General: Morbidly obese, no acute distress
HEENT: Normocephalic, Atraumatic, EOMI, MMM
Respiratory: Diminished breath sounds at the bases
Cardiac: Normal S1/S2, Regular Rate and Rhythm
GI: Soft, Nontender, Nondistended, Normal Bowel Sounds
Extremities: No Clubbing, Cyanosis, or Edema
Neuro: Nonfocal/Grossly Intact
Psych: Calm, Cooperative
Derm: No Visible lesions
Anticipated Discharge: > 48 hours
Subjective/Interval History
-
Date of Service: October 31, 2023
Patient reports still being short of breath, with coughing. No fever, no vomiting.
Objective Data
-
Labs:
Laboratory Results
10/30/23 10/31/23
21:09 06:11
WBC 13.2 H 12.3 H
Hgb 12.0 11.7 L
Hct 36.6 L 37.3
Plt Count 489 H 453 H
Sodium 131 L 135
Potassium 4.4 4.0
Chloride 101 102
Carbon Dioxide 21 L 22
BUN 16 16
Creatinine 0.5 L 0.6
Glucose 106 H 110 H
Calcium 8.8 8.5
Total Bilirubin 1.8 H
AST 33
ALT 14
Alkaline Phosphatase 129 H
Vital Signs:
Vital Signs
Temp Pulse Resp BP Pulse Ox
98.0 F 68 16 93/50 95
10/31/23 06:50 10/31/23 08:00 10/31/23 08:00 10/31/23 06:50 10/31/23 08:00
I&O
10/30/23 10/31/23 11/01/23
06:59 06:59 06:59
Intake Total 120 / 120
Output Total 600 / 600
Balance -480 / -480
[2023-10-31] MEDS: KCL 40 MEQ PO (09:40)
[2023-10-31] MEDS: ProAmatine 10 MG PO ×2 (09:41→20:37)
[2023-10-31] MEDS: MIRALAX 17 GRAMS PO (09:41)
[2023-10-31] MEDS: PROTONIX 40 MG PO ×2 (09:41→20:19)
[2023-10-31] MEDS: THERAGRAN 1 TABLET PO (09:41)
[2023-10-31] MEDS: COLACE 100 MG PO ×2 (09:41→20:18)
[2023-10-31] MEDS: ALDACTONE 25 MG PO (09:41)
[2023-10-31] MEDS: LASIX 80 MG IV ×2 (09:41→16:04)
[2023-10-31] MEDS: ELIQUIS 5 MG PO ×2 (09:41→20:19)
[2023-10-31] MEDS: DESITIN MAXIMUM STRENGTH PASTE 1 APPLIC TOPICAL ×2 (09:43→20:19)
--- NOTE | 2023-10-31 11:01 | CON.CAR ---
Consultation
Consultation Request
Date/Time Consultation Requested: 10/31/2023 0800
Date/Time Consultation Performed: 10/31/2023 1100
Requesting Provider: Hospitalist Dr. Hawthorne
Performing Provider: Dr. Delacruz
Reason for Consultation: Shortness of breath, heart failure
Medical History
-
History of Present Illness:
68 y/o female with persistent AFIB on Eliquis, hx PVI 2022- repeat 02/2023, pacemaker and AVN ablation 08/2023, HFpEF, moderate MS, HTN, CVA 1988, breast cancer 2010 with hx chemo/surgery/radiation, obesity, lymphedema. Patient with recent
hospitalization and subsequent discharge 10/22/23. patient was reported to have black stools and had endoscopy and colonoscopy 10/15/2023 evidence of esophagitis. Anticoagulation was resumed. Patient did receive additional IV Lasix for treatment of
heart failure during that admission and was transition to Lasix 80 mg daily. She states she is compliant with her medications her weights have not changed but she says she has a poor appetite. No edema but she developed increased shortness of
breath prompting her to come to the hospital.
She denies change in her diet. She states she gets groceries delivered from [employer] but has not been eating much.
PMH
atrial fibrillation, persistent
Chronic anticoagulation
Pacemaker and AV chris ablation 08/2023
Heart failure reduced left ventricular functio moderate mitral stenosis
Hypertension
CVA 1988
breast cancer 2010 status post chemo/surgery/radiation
Lymphedema
Last hospitalization October 2023 with discharge 10/22/2023 patient was reported to have black stools and had endoscopy and colonoscopy 10/15/2023 evidence of esophagitis. Anticoagulation was resumed. Patient did receive additional IV Lasix for
treatment of heart failure during that admission and was transition to Lasix 80 mg daily.
Labs proBNP 8700 which is lower than presentation 10/19/2023 when it was 10,800. Of note proBNP 08/28 was 3210.. Troponin negative x 2
ECG tracing reviewed ventricularly paced rhythm
Echocardiogram 07/20/2023 technically difficult study ejection fraction 30 to 35% enlarged right ventricular size with reduced right ventricular function mild to moderate tricuspid regurgitation mild aortic stenosis moderate mitral stenosis with mean
gradient 7 mmHg, estimated PA pressure 45 mmHg
Past Medical History
Past Surgical History: Other (above)
Social History
Living: Other (Lives with her cat. She says she has neighbors that sometimes help her)
Family History
Family History: Other (Denies premature CAD)
Allergies / Home Medications
Allergy/AdvReac Type Severity Reaction Status Date / Time
codeine AdvReac 'loopy' Verified 10/30/23 20:54
�Medication �Instructions �Recorded �Confirmed �Type
montelukast 10 mg tablet 10 mg PO HS Lung/breathing issues 06/23/22 10/30/23 History
apixaban 5 mg tablet (Eliquis) 5 mg PO BID #60 tabs 07/01/22 10/30/23 Rx
rosuvastatin 20 mg tablet 20 mg PO HS High Cholesterol 02/17/23 10/30/23 History
fluticasone 250 mcg-salmeterol 50 2 inh inhalation R BID 02/22/23 10/30/23 History
mcg/dose blistr powdr for
inhalation (Wixela Inhub)
therapeutic multivitamin 1 tab PO DAILY Supplement ##0 04/16/23 10/30/23 History
potassium chloride 20 mEq 40 meq (2 x 20 mEq) PO DAILY #0 09/02/23 10/30/23 Rx
tablet,extended release tabs
furosemide 80 mg tablet (Lasix) 80 mg PO DAILY Fluid 10/12/23 10/30/23 History
retention/Swelling
guaifenesin 600 mg tablet, 600 mg PO HS 10/12/23 10/30/23 History
extended release 12 hr
midodrine 10 mg tablet 10 mg PO BID 10/12/23 10/30/23 History
spironolactone 25 mg tablet 25 mg PO DAILY Fluid 10/12/23 10/30/23 History
(Aldactone) Retention/Swelling
zinc oxide-cod liver oil 40 % 1 applic topical BID 10/12/23 10/30/23 History
topical paste (Desitin)
docusate sodium 100 mg capsule 100 mg PO BID #0 caps 10/16/23 10/30/23 Rx
sucralfate 1 gram tablet 1 g PO BID@0700,1600 #60 tabs 10/16/23 10/30/23 Rx
pantoprazole 40 mg tablet,delayed 40 mg PO BID #60 tabs 10/21/23 10/30/23 Rx
release
polyethylene glycol 3350 17 gram 17 g PO DAILY #30 ea 10/21/23 10/30/23 Rx
oral powder packet (HealthyLax)
Review of Systems
-
All other systems: Negative unless noted
Physical Exam
Vital Signs
Temp Pulse Resp BP Pulse Ox
98.5 F 70 16 92/53 96
10/31/23 10:26 10/31/23 10:26 10/31/23 10:26 10/31/23 10:26 10/31/23 10:26
Lab Results
10/31/23 06:11
10/31/23 06:11
Troponin I Cancelled 10/31/23 08:04
Urd-C-Kkrxzwcqlok Pept 8700 pg/ml 10/30/23 21:09
Physical Exam
General: Other (Awake alert no distress.)
HEENT: Other (Extraocular is intact external ear and oral exam unremarkable neck is heavy without detectable adenopathy or JVD no carotid bruit)
Respiratory: Other (No wheezes rales or rhonchi)
Cardiac: Regular Rhythm
Musculoskeletal: No Clubbing, No Cyanosis and No Edema
Skin: Warm, Dry and Other
Neuro: Awake, Alert and Oriented
Psych: Calm
Impression / Plan
-
Shortness of breath. Patient's had history of heart failure chest x-ray report raises question of heart failure. Patient with recent hospitalization and is only up 1 kg.
Can treat for heart failure but also would assess other factors contributing to shortness of breath.
-Monitor blood pressure and renal function closely with diuresis
.
HFrEF
-Challenging issue. Patient's had multiple hospitalizations. She reports being compliant with medical therapy. She also reports stable weights at home.
-Diuresis with IV Lasix. Requires intensive monitoring
-Monitor renal function and blood pressure
-Continue efforts to optimize medical therapy
-Repeat echo
.
A-fib. Persistent
- CHADSVASC - 55(age greater than 65, HFrEF, hypertension, female, CVA)
-Continue anticoagulation with Eliquis.
-History of AV node ablation and pacemaker
.
Pacemaker.
Obesity.
Data Reviewed
-
Radiology: Report Reviewed by me
Medical Tests (Nuc Med, Echo etc): Report Reviewed by me
[2023-10-31 12:08] LABS: Troponin I < 0.012 ng/ml
--- NOTE | 2023-10-31 12:53 | CM ---
assistant case manager reviewed patient's chart and met with patient and patient lives alone with her cat in a one story home, patient is independent with adl's and uses walker and w/c with ambulation, patient is on home oxygen from [employer],
patient is current [facility].
Pharmacy; [facility] in [place]
PCP: Qiana Rodriguez
Plan; Home with JILLIAN with [facility].
[2023-10-31] MEDS: PULMICORT INH (15:39)
[2023-10-31] MEDS: PULMICORT 0.5 MG INH (18:21)
[2023-10-31] MEDS: MUCINEX 600 MG PO (22:24)
[2023-10-31] MEDS: CRESTOR 20 MG PO (22:24)
[2023-10-31] MEDS: SINGULAIR 10 MG PO (22:25)
[2023-11-01 03:25] VITALS: BP 98/63
[2023-11-01 06:00] VITALS: BMI 46.2
[2023-11-01] MEDS: CARAFATE 1 GRAM PO ×2 (06:19→17:13)
[2023-11-01] MEDS: PULMICORT 0.5 MG INH ×2 (07:30→19:38)
[2023-11-01] MEDS: ADVAIR HFA 115/21 MCG INHALER 2 PUFF INH ×2 (07:30→19:38)
--- NOTE | 2023-11-01 07:37 | W.PN.HOSP.TC ---
Today's Communication/Plan
-
see bold
Assessment / Plan
Assessment / Plan
HPI: 68 y/o female with persistent AFIB on Eliquis, hx PVI 2022- repeat 02/2023, pacemaker and AVN ablation 08/2023, HFpEF, moderate MS, HTN, CVA 1988, breast cancer 2010 with hx chemo/surgery/radiation, obesity, lymphedema. Patient with recent
hospitalization and subsequent discharge 10/22/23. patient was reported to have black stools and had endoscopy and colonoscopy 10/15/2023 evidence of esophagitis. Anticoagulation was resumed. Patient did receive additional IV Lasix for treatment of
heart failure during that admission and was transition to Lasix 80 mg daily. She states she is compliant with her medications her weights have not changed.
#Acute heart failure with reduced ejection fraction
#Shortness of breath
Appreciate cardiology input, continue Lasix 80 mg IV twice daily, trend creatinine, trend daily weights
Continue spironolactone. Weight trending down
Cardiology recommends repeating chest x-ray and BNP prior to discharge
#Chronic hypoxic respiratory failure
Due to the above
Currently requiring 3 L, down from 4, wean as tolerated
She wears 2 L at home
#Allergic asthma
#Chronic cough
#Suspected obstructive sleep apnea
Continue Singulair, bronchodilators
#Persistent atrial fibrillation
Status post AV chris ablation with pacemaker
Continue Eliquis
#Esophagitis
Continue PPI twice daily for 2 months after EGD on 10/14, then daily
Continue Carafate
#Chronic ambulatory dysfunction
She uses a wheelchair at baseline, lives alone
Will need home care upon discharge
#Chronic hypotension
Continue midodrine 10 mg twice a day
#History of stroke
Continue statin
#Morbid obesity due to excess calories
Affects all aspects of care
#History of breast cancer
Status post chemo/surgery/radiation
DVT prophylaxis�Eliquis
Full code
Total time spent to see the patient on the floor, examine the patient, review data and lab results, discuss treatment plan with patient, nursing staff around 35 minutes.
Physical Exam
General: Morbidly obese, no acute distress
HEENT: Normocephalic, Atraumatic, EOMI, MMM
Respiratory: Diminished breath sounds at the bases
Cardiac: Normal S1/S2, Regular Rate and Rhythm
GI: Soft, Nontender, Nondistended, Normal Bowel Sounds
Extremities: No Clubbing, Cyanosis, or Edema
Neuro: Nonfocal/Grossly Intact
Psych: Calm, Cooperative
Anticipated Discharge: 24 - 48 hours
Subjective/Interval History
-
Date of Service: November 01, 2023
Patient's breathing is improved. No chest pain. No fever, no vomiting.
Objective Data
-
Labs:
Laboratory Results
11/01/23
07:28
WBC Pending
Hgb Pending
Hct Pending
Plt Count Pending
Sodium Pending
Potassium Pending
Chloride Pending
Carbon Dioxide Pending
BUN Pending
Creatinine Pending
Glucose Pending
Calcium Pending
Vital Signs:
Vital Signs
Temp Pulse Resp BP Pulse Ox
97.9 F 70 18 98/63 94
11/01/23 03:25 11/01/23 03:25 11/01/23 03:25 11/01/23 03:25 11/01/23 03:25
I&O
10/31/23 11/01/23 11/02/23
06:59 06:59 06:59
Intake Total 120 / 120 840 / 840
Output Total 600 / 600 2024
Balance -480 / -480 -1185 / -1185
[2023-11-01 07:49] LABS: Hematocrit 37.6 % (37.0-47.0); Hemoglobin 11.9 g/dL (12.0-16.0); Mean Corp Hgb Conc. 31.6 g/dL (33.0-37.0); Mean Corpuscular Hgb 30.3 pg (27.0-31.0); Mean Corpuscular Volume 95.7 fL (81.0-99.0); Mean Platelet Volume 9.8 fL (7.4-10.4); Platelet Count 462 10^3/uL (130-400); Red Blood Cell Count 3.93 10^6/uL (4.20-5.40); White Blood Cell Count 12.8 10^3/uL (4.8-10.8)
[2023-11-01 08:00] VITALS: BP 104/62
[2023-11-01 08:08] LABS: Blood Urea Nitrogen 16 mg/dl (7-17); Calcium 8.4 mg/dl (8.4-10.2); Carbon Dioxide 27 mmol/L (22-30); Chloride 99 mmol/L (98-107); Estimated Creatinine Clearance 102 ml/min; Glucose 131 mg/dl (70-99); Magnesium 1.6 mg/dl (1.6-2.3); Phosphorus 3.6 mg/dl (2.5-4.5); Potassium 3.6 mmol/L (3.5-5.1); Sodium 135 mmol/L (135-145); eGFR > 60.00
[2023-11-01] MEDS: PROTONIX 40 MG PO ×2 (09:42→21:41)
[2023-11-01] MEDS: ProAmatine 10 MG PO ×2 (09:42→21:50)
[2023-11-01] MEDS: ELIQUIS 5 MG PO ×2 (09:43→21:41)
[2023-11-01] MEDS: KCL 40 MEQ PO (09:43)
[2023-11-01] MEDS: COLACE 100 MG PO ×2 (09:45→21:41)
[2023-11-01] MEDS: LASIX 80 MG IV ×2 (09:46→17:20)
[2023-11-01] MEDS: MIRALAX 17 GRAMS PO (09:46)
[2023-11-01] MEDS: FLUSH (NSS) 2 FLUSH IV (09:47)
--- NOTE | 2023-11-01 09:48 | VNURNOTE ---
Patient is current with [facility] since 10/22 w/ SN/PT/OT, will monitor progress and plan at discharge.
--- NOTE | 2023-11-01 09:55 | CM ---
Patient seen at bedside, sleeping. Patient current with [facility] per liaison note. Plan per chart review is for patient to return home with [facility] to follow. Patient home with O2. CM will continue to follow for discharge planning needs.
Plan; home with VN; [facility]
[2023-11-01] MEDS: ALDACTONE 25 MG PO (10:01)
[2023-11-01] MEDS: THERAGRAN 1 TABLET PO (10:01)
[2023-11-01] MEDS: DESITIN MAXIMUM STRENGTH PASTE 1 APPLIC TOPICAL ×2 (10:08→21:41)
--- NOTE | 2023-11-01 12:07 | CARDSERVDEF ---
Echocardiogram with Definity completed after protocol screening completed. Allergies verified.
Patent IV site: Rt hand
IV site flushed with 0.9% NaCl pre and post administration.
Diluted bolus method utilized to enhance visualization of ventricular quigley.
Total volume given: ___2.0_ mL
Patient tolerated all procedures well without complications.
--- NOTE | 2023-11-01 12:43 | W.PN.CD ---
Today's Communication / Plan
-
Continue IV Lasix BID
Follow Cr/BUN
Dry weight will need to be determined
I suggest we consider a predischarge pBNP and CXR when we feel she is close to her dry weight
Impression / Plan
-
Shortness of breath. Patient's had history of heart failure chest x-ray report c/w heart failure. Patient with recent hospitalization and is only up 1 kg.
Can treat for heart failure but also would assess other factors contributing to shortness of breath.
-Monitor blood pressure and renal function closely with diuresis
.
HFrEF
-Challenging issue. Patient's had multiple hospitalizations. She reports being compliant with medical therapy. She also reports stable weights at home.
-Diuresis with IV Lasix. Requires intensive monitoring
-Monitor renal function and blood pressure
-Continue efforts to optimize medical therapy
- echo planned for today
.
A-fib. Persistent
- CHADSVASC - 56(age greater than 65, HFrEF, hypertension, female, CVA)
-Continue anticoagulation with Eliquis.
-History of AV node ablation and pacemaker => no need for rate control meds
.
Pacemaker.
Obesity
Subjective:
Feels better. Not quite at baseline.
Physical Exam
Vital Signs/Labs
Vital Signs
Temp Pulse Resp BP Pulse Ox
98.0 F 71 22 104/62 96
11/01/23 08:00 11/01/23 08:00 11/01/23 08:00 11/01/23 08:00 11/01/23 08:00
10/31/23 11/01/23 11/02/23
06:59 06:59 06:59
Actual Weight 113.58 kg 110.818 kg
11/01/23 07:28
11/01/23 07:28
Magnesium 1.6 mg/dl (1.6-2.3) 11/01/23 07:28
10/30/23
21:09
Xtn-R-Uoebzoeaxfl Pept 8700
LAB Results
10/30/23 10/31/23 10/31/23
21:09 00:15 00:15
Troponin I < 0.012 0.012 Cancelled
10/31/23 10/31/23 10/31/23
02:04 06:11 08:04
Troponin I Cancelled < 0.012 Cancelled
10/31/23 10/31/23 10/31/23
11:29 14:04 18:00
Troponin I < 0.012 Cancelled Cancelled
Physical Exam
Constitutional: No acute distress
EENT: Anicteric
Cardiovascular: Rhythm & rate is regular and Pedal edema is absent
Respiratory: Respiratory effort normal and Lungs clear to auscul.
GI: Soft and Distention absent
Neuro/Psych: Alert
Data Reviewed
-
Date of Service: November 01, 2023
[2023-11-01 15:38] VITALS: BP 105/70
[2023-11-01] MEDS: REFRESH EYE DROPS (PF) 1 DROPS OPHTH (17:24)
[2023-11-01 19:52] VITALS: BP 103/60
[2023-11-01] MEDS: MUCINEX 600 MG PO (22:49)
[2023-11-01] MEDS: SINGULAIR 10 MG PO (22:49)
[2023-11-01] MEDS: CRESTOR 20 MG PO (22:49)
[2023-11-01 23:49] VITALS: BP 111/76
[2023-11-02] MEDS: REFRESH EYE DROPS (PF) 1 DROPS OPHTH (00:11)
[2023-11-02] MEDS: BENADRYL 25 MG PO (01:56)
[2023-11-02] MEDS: TYLENOL 650 MG PO (02:40)
[2023-11-02 04:02] VITALS: BP 108/71
[2023-11-02 05:45] VITALS: BMI 48.1
--- NOTE | 2023-11-02 06:14 | W.PN.HOSP.TC ---
Today's Communication/Plan
-
diuresis
bowel regimen
PT
wean O2 supplementation as tolerated
Assessment / Plan
Assessment / Plan
HPI: 68 y/o female with persistent AFIB on Eliquis, hx PVI 2022- repeat 02/2023, pacemaker and AVN ablation 08/2023, HFpEF, moderate MS, HTN, CVA 1988, breast cancer 2010 with hx chemo/surgery/radiation, obesity, lymphedema. Patient with recent
hospitalization and subsequent discharge 10/22/23. patient was reported to have black stools and had endoscopy and colonoscopy 10/15/2023 evidence of esophagitis. Anticoagulation was resumed. Patient did receive additional IV Lasix for treatment of
heart failure during that admission and was transition to Lasix 80 mg daily. She states she is compliant with her medications her weights have not changed.
#Acute heart failure with reduced ejection fraction
#Shortness of breath
Appreciate cardiology input, continue Lasix 80 mg IV twice daily, trend creatinine, trend daily weights
Continue spironolactone
daily weights I/O
Cardiology recommends repeating chest x-ray and BNP prior to discharge
#Chronic hypoxic respiratory failure
Due to the above
Currently requiring 3 L, down from 4, wean as tolerated
She wears 2 L at home
#Allergic asthma
#Chronic cough
#Suspected obstructive sleep apnea
Continue Singulair, bronchodilators
#Persistent atrial fibrillation
Status post AV chris ablation with pacemaker
Continue Eliquis
#Esophagitis
Continue PPI twice daily for 2 months after EGD on 10/14, then daily
Continue Carafate
#Chronic ambulatory dysfunction
She uses a wheelchair at baseline, lives alone
Will need home care upon discharge
#Chronic hypotension
Continue midodrine 10 mg twice a day
#History of stroke
Continue statin
#Morbid obesity due to excess calories
Affects all aspects of care
#History of breast cancer
Status post chemo/surgery/radiation
#Constipation
cont bowel regimen
PT eval
DVT prophylaxis�Eliquis
Full code
Total time spent to see the patient on the floor, examine the patient, review data and lab results, discuss treatment plan with patient, nursing staff around 50 minutes.
Physical Exam
General: Morbidly obese, no acute distress
HEENT: Normocephalic, Atraumatic, EOMI, MMM
Respiratory: Diminished breath sounds at the bases
Cardiac: Normal S1/S2, Regular Rate and Rhythm
GI: Soft, Nontender, Nondistended, Normal Bowel Sounds
Extremities: No Clubbing, Cyanosis, or Edema
Neuro: Nonfocal/Grossly Intact
Psych: Calm, Cooperative
Anticipated Discharge: 24 - 48 hours
Subjective/Interval History
-
Date of Service: November 02, 2023
Reports overall improvement in symptoms including shortness of breath and coughing. Patient also reports constipation. Denies nausea abd pain
Objective Data
-
Labs:
Laboratory Results
11/02/23
06:00
WBC Pending
Hgb Pending
Hct Pending
Plt Count Pending
Sodium Pending
Potassium Pending
Chloride Pending
Carbon Dioxide Pending
BUN Pending
Creatinine Pending
Glucose Pending
Calcium Pending
Vital Signs:
Vital Signs
Temp Pulse Resp BP Pulse Ox
97.9 F 105 16 108/71 95
11/02/23 04:02 11/02/23 04:02 11/02/23 04:02 11/02/23 04:02 11/02/23 04:02
I&O
10/31/23 11/01/23 11/02/23
06:59 06:59 06:59
Intake Total 120 / 120 840 / 840 240 / 240
Output Total 600 / 600 2024 600 / 600
Balance -480 / -480 -1185 / -1185 -360 / -360
[2023-11-02] MEDS: CARAFATE 1 GRAM PO ×2 (06:34→17:07)
[2023-11-02] MEDS: PULMICORT 0.5 MG INH (07:42)
[2023-11-02] MEDS: ADVAIR HFA 115/21 MCG INHALER 2 PUFF INH (07:42)
[2023-11-02 08:00] VITALS: BP 98/78
[2023-11-02 08:27] LABS: Hematocrit 37.6 % (37.0-47.0); Hemoglobin 11.9 g/dL (12.0-16.0); Mean Corp Hgb Conc. 31.6 g/dL (33.0-37.0); Mean Corpuscular Hgb 30.3 pg (27.0-31.0); Mean Corpuscular Volume 95.7 fL (81.0-99.0); Mean Platelet Volume 9.9 fL (7.4-10.4); Platelet Count 447 10^3/uL (130-400); Red Blood Cell Count 3.93 10^6/uL (4.20-5.40); White Blood Cell Count 12.6 10^3/uL (4.8-10.8)
--- NOTE | 2023-11-02 08:37 | PTCARENOTE ---
~23:54 Heart monitor alarmed reading 19 beat run of VTach. Pt has hx of a.fib and has pacemaker. Pt asleep at the time. Pt arousable. AAXO3. Pt denies SOB, difficulty breathing, chest pain, lightheadedness, and dizziness. Pt on 4L NC. Notified CURRICULUM COACH.
No new orders at this time. Plan of care ongoing.
[2023-11-02 08:53] LABS: Blood Urea Nitrogen 16 mg/dl (7-17); Calcium 8.8 mg/dl (8.4-10.2); Carbon Dioxide 28 mmol/L (22-30); Chloride 95 mmol/L (98-107); Estimated Creatinine Clearance 105 ml/min; Glucose 133 mg/dl (70-99); Magnesium 1.6 mg/dl (1.6-2.3); Phosphorus 3.8 mg/dl (2.5-4.5); Potassium 3.6 mmol/L (3.5-5.1); Sodium 133 mmol/L (135-145); eGFR > 60.00
[2023-11-02] MEDS: ELIQUIS 5 MG PO ×2 (09:12→20:47)
[2023-11-02] MEDS: MIRALAX 17 GRAMS PO (09:12)
[2023-11-02] MEDS: KCL 40 MEQ PO (09:12)
[2023-11-02] MEDS: ALDACTONE 25 MG PO (09:12)
[2023-11-02] MEDS: ProAmatine 10 MG PO ×2 (09:12→20:47)
[2023-11-02] MEDS: COLACE 100 MG PO (09:12)
[2023-11-02] MEDS: PROTONIX 40 MG PO ×2 (09:12→20:47)
[2023-11-02] MEDS: THERAGRAN 1 TABLET PO (09:30)
[2023-11-02] MEDS: LASIX 80 MG IV ×2 (09:30→17:08)
[2023-11-02] MEDS: FLUSH (NSS) 2 FLUSH IV ×2 (09:32→17:08)
[2023-11-02] MEDS: DESITIN MAXIMUM STRENGTH PASTE 1 APPLIC TOPICAL ×2 (09:33→21:40)
--- NOTE | 2023-11-02 09:45 | W.HF.CON ---
Heart Failure
- LV Function
Left ventricular function study result: LV Ejection fraction >40%
Ejection Fraction Percentage: 45
- ARNI
Patient already on ARNI: No
Heart Failure ARNI Not Indicated: LV Ejection Fraction >/= 40%
- ACEI/ARB
Patient already on ACEI/ARB: No
Heart Failure ACEI/ARB Not Indicated: LV Ejection Fraction > 40%
- Beta Víctor
Patient already on Evidence Based Beta Víctor: No
Heart Failure Evidence Based Beta Víctor Not Indicated: LV Ejection Fraction > 40%
- Mineralocorticord Receptor Antagonist
Patient already on MRA: Yes
- SGLT-2 Inhibitor
Patient already on SGLT-2 Inhibitor: No
Heart Failure SGLT-2 Inhibitor Not Indicated: LV Ejection Fraction >40%
- Afib Anticoagulation
Patient already on Anticoagulation for Afib: Yes
- NYHA CHF Classification
NYHA CHF Classification Level: Class III - Symptoms w/ min exertion, interferes w/ nml daily activity
- ACC/AHA Stage
ACC/AHA Stage: Stage C: Symptomatic Heart Failure
--- NOTE | 2023-11-02 10:41 | W.PN.CD ---
Today's Communication / Plan
-
Contique diuresis
Consider f/u CXR/pBNP close to discharge
Impression / Plan
-
Dyspnea
- CXR c/w heart failure
- May have additional contributors
HFrEF, acute on chronic
- Continue diuresis
- Hard to believe she gained 5 kg of weight
- BUN/Cr?K+ tolerating diuresis
- Once congestion cleared on CXR I would consider adding SGLT-i and increasing MRA
Afib, ATach, permanent
- Treated with AV node ablation/pacemaker
- Anticoagulated with Eliquis
- [id number] 6 (age1, HF, HTN, female, hx CVA)
Obesity
Subjective:
Feels better. Not quite at baseline.
Physical Exam
Vital Signs/Labs
Vital Signs
Temp Pulse Resp BP Pulse Ox
97.5 F 72 20 98/78 94
11/02/23 08:00 11/02/23 08:00 11/02/23 08:00 11/02/23 08:00 11/02/23 08:00
11/01/23 11/02/23 11/03/23
06:59 06:59 06:59
Actual Weight 110.818 kg 115.383 kg
11/02/23 07:47
11/02/23 07:47
Magnesium 1.6 mg/dl (1.6-2.3) 11/02/23 07:47
10/30/23
21:09
Asb-H-Jwlmtolpmzc Pept 8700
LAB Results
10/30/23 10/31/23 10/31/23
21:09 00:15 00:15
Troponin I < 0.012 0.012 Cancelled
10/31/23 10/31/23 10/31/23
02:04 06:11 08:04
Troponin I Cancelled < 0.012 Cancelled
10/31/23 10/31/23 10/31/23
11:29 14:04 18:00
Troponin I < 0.012 Cancelled Cancelled
Physical Exam
Constitutional: No acute distress
EENT: Anicteric
Cardiovascular: Rhythm & rate is regular and Pedal edema is absent
Respiratory: Respiratory effort normal, Lungs clear to auscul. and Wheeze Absent
GI: Soft and Distention absent
Neuro/Psych: AO x 3
Data Reviewed
-
Date of Service: November 02, 2023
[2023-11-02 11:56] VITALS: BP 112/67
[2023-11-02 16:17] VITALS: BP 103/63
[2023-11-02 19:45] VITALS: BP 115/79
[2023-11-02] MEDS: ADVAIR HFA 115/21 MCG INHALER INH (20:31)
[2023-11-02] MEDS: PULMICORT INH (20:31)
[2023-11-02] MEDS: SENOKOT-S 1 TABLET PO (20:48)
[2023-11-02] MEDS: SINGULAIR 10 MG PO (21:40)
[2023-11-02] MEDS: MUCINEX 600 MG PO (21:40)
[2023-11-02] MEDS: CRESTOR 20 MG PO (21:40)
[2023-11-02 23:32] VITALS: BP 104/71
[2023-11-03 03:21] VITALS: BP 102/56
[2023-11-03 06:00] VITALS: BMI 46.2
[2023-11-03] MEDS: CARAFATE 1 GRAM PO ×2 (06:22→18:01)
--- NOTE | 2023-11-03 07:26 | W.PN.HOSP.TC ---
Addendum entered and electronically signed by Kerry Venegas MD 11/04/23 08:07:
correction permanent afib as per cardio
Addendum entered and electronically signed by Kerry Venegas MD 11/04/23 08:04:
Persistent Afib, patient is not always in afib as would be expected when permanent
Original Note:
Today's Communication/Plan
-
diuresis
bowel regimen
PT
wean O2 supplementation as tolerated
Anusol suppository started for Hemorrhoid pain
Assessment / Plan
Assessment / Plan
HPI: 68 y/o female with persistent AFIB on Eliquis, hx PVI 2022- repeat 02/2023, pacemaker and AVN ablation 08/2023, HFpEF, moderate MS, HTN, CVA 1988, breast cancer 2010 with hx chemo/surgery/radiation, obesity, lymphedema. Patient with recent
hospitalization and subsequent discharge 10/22/23. patient was reported to have black stools and had endoscopy and colonoscopy 10/15/2023 evidence of esophagitis. Anticoagulation was resumed. Patient did receive additional IV Lasix for treatment of
heart failure during that admission and was transition to Lasix 80 mg daily. She states she is compliant with her medications her weights have not changed.
#Acute heart failure with reduced ejection fraction
#Shortness of breath
Appreciate cardiology input, continue Lasix 80 mg IV twice daily, trend creatinine, trend daily weights
Continue spironolactone
daily weights I/O
Cardiology recommends repeating chest x-ray and BNP prior to discharge
#Chronic hypoxic respiratory failure baseline 2L
Due to the above
Wean O2 supplementation to baseline 2L as tolerated
#Allergic asthma
#Chronic cough
#Suspected obstructive sleep apnea
Continue Singulair, bronchodilators
#Persistent atrial fibrillation
Status post AV chris ablation with pacemaker
Continue Eliquis
#Esophagitis
Continue PPI twice daily for 2 months after EGD on 10/14, then daily
Continue Carafate
#Chronic ambulatory dysfunction
She uses a wheelchair at baseline, lives alone
Will need home care upon discharge
#Chronic hypotension
Continue midodrine 10 mg twice a day
#History of stroke
Continue statin
#Morbid obesity due to excess calories
Affects all aspects of care
#History of breast cancer
Status post chemo/surgery/radiation
#Constipation
cont bowel regimen
once suppository attempted
#reports Hemorrhoid pain
Anusol suppository bedtime 7 days ordered
PT eval
DVT prophylaxis�Eliquis
Full code
Total time spent to see the patient on the floor, examine the patient, review data and lab results, discuss treatment plan with patient, nursing staff around 50 minutes.
Physical Exam
General: Morbidly obese, no acute distress
HEENT: Normocephalic, Atraumatic, EOMI, MMM
Respiratory: Diminished breath sounds at the bases
Cardiac: Normal S1/S2, Regular Rate and Rhythm
GI: Soft, Nontender, Nondistended, Normal Bowel Sounds
Extremities: No Clubbing, Cyanosis, or Edema
Neuro: Nonfocal/Grossly Intact
Psych: Calm, Cooperative
Anticipated Discharge: 24 - 48 hours
Subjective/Interval History
-
Date of Service: November 03, 2023
reports constipation and rectal pain from hemorrhoids.
Objective Data
-
Labs:
Laboratory Results
11/03/23
06:52
WBC Pending
Hgb Pending
Hct Pending
Plt Count Pending
Sodium Pending
Potassium Pending
Chloride Pending
Carbon Dioxide Pending
BUN Pending
Creatinine Pending
Glucose Pending
Calcium Pending
Vital Signs:
Vital Signs
Temp Pulse Resp BP Pulse Ox
98.5 F 72 18 102/56 94
11/03/23 03:21 11/03/23 03:21 11/03/23 03:21 11/03/23 03:21 11/03/23 03:21
I&O
11/02/23 11/03/23 11/04/23
06:59 06:59 06:59
Intake Total 480 / 480 960 / 960
Output Total 1000 / 1000 1950 / 1950
Balance -520 / -520 -990 / -990
[2023-11-03 07:36] LABS: Hematocrit 38.7 % (37.0-47.0); Hemoglobin 12.2 g/dL (12.0-16.0); Mean Corp Hgb Conc. 31.5 g/dL (33.0-37.0); Mean Corpuscular Volume 95.1 fL (81.0-99.0); Platelet Count 452 10^3/uL (130-400); Red Blood Cell Count 4.07 10^6/uL (4.20-5.40); White Blood Cell Count 13.6 10^3/uL (4.8-10.8)
[2023-11-03] MEDS: DULCOLAX 10 MG PO (07:43)
[2023-11-03 07:52] LABS: Blood Urea Nitrogen 18 mg/dl (7-17); Calcium 8.7 mg/dl (8.4-10.2); Carbon Dioxide 28 mmol/L (22-30); Chloride 94 mmol/L (98-107); Estimated Creatinine Clearance 87 ml/min; Glucose 127 mg/dl (70-99); Magnesium 1.7 mg/dl (1.6-2.3); Phosphorus 3.3 mg/dl (2.5-4.5); Potassium 3.8 mmol/L (3.5-5.1); Sodium 131 mmol/L (135-145); eGFR > 60.00
[2023-11-03] MEDS: PULMICORT INH (08:03)
[2023-11-03] MEDS: ADVAIR HFA 115/21 MCG INHALER INH (08:03)
[2023-11-03 08:09] VITALS: BP 106/74
[2023-11-03] MEDS: PROTONIX 40 MG PO ×2 (08:21→20:19)
[2023-11-03] MEDS: ELIQUIS 5 MG PO ×2 (08:21→20:19)
[2023-11-03] MEDS: THERAGRAN 1 TABLET PO (08:21)
[2023-11-03] MEDS: ProAmatine 10 MG PO ×2 (08:21→20:19)
[2023-11-03] MEDS: MIRALAX 17 GRAMS PO (08:21)
[2023-11-03] MEDS: LASIX 80 MG IV ×2 (08:21→18:01)
[2023-11-03] MEDS: KCL 40 MEQ PO (08:21)
[2023-11-03] MEDS: SENOKOT-S 1 TABLET PO ×2 (08:22→20:19)
[2023-11-03] MEDS: ALDACTONE 25 MG PO (08:22)
[2023-11-03] MEDS: DESITIN MAXIMUM STRENGTH PASTE TOPICAL (08:30)
--- NOTE | 2023-11-03 09:10 | PN.CDI ---
CDI
- -
CDI:
Physician Documentation Request
Admit Date: 10/30/23 23:35
Dear Doctor Rubi,
Please review the following and provide your response in the progress notes.
Clinical Indicators:
Pt admitted with CHFrEF exacerbation on IV diuresis
There is potentially conflicting documentation in the record regarding the type of afib.
Cardiology consult,' A-fib. Persistent...-Continue anticoagulation with Eliquis.....'
Documented per cardiology notes 10/31 &11/01 , ' Afib, ATach, permanent...'
Progress notes 10/31 & 11/01 , ' Persistent atrial fibrillation...'
If possible, please provide further specificity regarding atrial fibrillation, such as:
Permanent atrial fibrillation - when a decision has been made to accept the presence of AF and there is no further attempt to restore or maintain sinus rhythm
Persistent atrial fibrillation - episodes of continuous AF that last more than 7 days and do not self-terminate
Other - please specify
Use of terms such as suspected, likely, concern for, or probable (associated with a specific diagnosis that is being evaluated, monitored, or treated as if it exists) are acceptable and can be coded in the inpatient setting, when documented at the
time of discharge.
Thank you,
Mackenzie Dahl RN
CDI Specialist
[place] [employer]
Please use your independent medical judgment in providing your response.
--- NOTE | 2023-11-03 10:19 | W.PN.CD ---
Today's Communication / Plan
-
Continue diuresis
Consider a f/u CXR and pBNP close to discharge
As outpatient move to more GDMT for HF midrange EF
Impression / Plan
-
Dyspnea
- CXR c/w heart failure
- May have additional contributors
HFrEF/HFmidrangeEF, acute on chronic
- Continue diuresis
- Hard to believe she gained 5 kg of weight
- BUN/Cr?K+ tolerating diuresis
- Once congestion cleared on CXR I would consider adding SGLT-i and increasing MRA, and can add additional GDMT
Afib, ATach, permanent
- Treated with AV node ablation/pacemaker
- Anticoagulated with Eliquis
- [id number] (age1, HF, HTN, female, hx CVA)
Obesity
Subjective:
Feels better. Not quite at baseline.
Physical Exam
Vital Signs/Labs
Vital Signs
Temp Pulse Resp BP Pulse Ox
98.7 F 72 20 106/74 94
11/03/23 08:09 11/03/23 08:09 11/03/23 08:09 11/03/23 08:09 11/03/23 08:09
11/02/23 11/03/23 11/04/23
06:59 06:59 06:59
Actual Weight 115.383 kg 110.858 kg
11/03/23 06:52
11/03/23 06:52
Magnesium 1.7 mg/dl (1.6-2.3) 11/03/23 06:52
10/30/23
21:09
Nfa-V-Gsifwwgzfac Pept 8700
LAB Results
10/31/23 10/31/23 10/31/23
11:29 14:04 18:00
Troponin I < 0.012 Cancelled Cancelled
Physical Exam
Constitutional: No acute distress
EENT: Anicteric
Cardiovascular: Rhythm & rate is regular and Pedal edema is absent
Respiratory: Respiratory effort normal and Lungs clear to auscul.
GI: Soft
Data Reviewed
-
Date of Service: November 03, 2023
[2023-11-03 12:02] VITALS: BP 99/64
--- NOTE | 2023-11-03 15:07 | CM ---
CM met with pt bedside to review dc planning
VN recommended by therapy
Pt requesting [facility] on dc
Notes on 2L at home through [employer]
[facility] referral sent to [facility]
Discharge Disposition- home with [facility]
[2023-11-03 15:36] VITALS: BP 106/74
[2023-11-03] MEDS: DULCOLAX 10 MG RECTAL (17:08)
[2023-11-03] MEDS: ANUSOL HC 25 MG RECTAL (18:07)
[2023-11-03 19:40] VITALS: BP 111/62
[2023-11-03] MEDS: ADVAIR HFA 115/21 MCG INHALER 2 PUFF INH (19:55)
[2023-11-03] MEDS: PULMICORT 0.5 MG INH (19:55)
[2023-11-03] MEDS: DESITIN MAXIMUM STRENGTH PASTE 1 APPLIC TOPICAL (20:19)
[2023-11-03] MEDS: SINGULAIR 10 MG PO (21:05)
[2023-11-03] MEDS: MUCINEX 600 MG PO (21:05)
[2023-11-03] MEDS: CRESTOR 20 MG PO (21:05)
[2023-11-03 23:15] VITALS: BP 108/61
[2023-11-04 03:21] VITALS: BP 116/73
[2023-11-04] MEDS: CARAFATE 1 GRAM PO ×2 (05:38→17:53)
[2023-11-04 06:00] VITALS: BMI 46.6
[2023-11-04 07:00] VITALS: BP 102/53
--- NOTE | 2023-11-04 07:19 | W.PN.HOSP.TC ---
Today's Communication/Plan
-
cont diuresis as per cardio
incentive spirometer
start augmentin w/ probiotic
wean O2 supplementation.
Assessment / Plan
Assessment / Plan
HPI: 68 y/o female with persistent AFIB on Eliquis, hx PVI 2022- repeat 02/2023, pacemaker and AVN ablation 08/2023, HFpEF, moderate MS, HTN, CVA 1988, breast cancer 2010 with hx chemo/surgery/radiation, obesity, lymphedema. Patient with recent
hospitalization and subsequent discharge 10/22/23. patient was reported to have black stools and had endoscopy and colonoscopy 10/15/2023 evidence of esophagitis. Anticoagulation was resumed. Patient did receive additional IV Lasix for treatment of
heart failure during that admission and was transition to Lasix 80 mg daily. She states she is compliant with her medications her weights have not changed.
#Acute heart failure with reduced ejection fraction
#Shortness of breath
Appreciate cardiology input, continue Lasix 80 mg IV twice daily, trend creatinine, trend daily weights
Continue spironolactone
daily weights I/O
Cardiology recommends repeating chest x-ray and BNP prior to discharge
#Acute on Chronic hypoxic respiratory failure baseline 2L
Due to heart failure exacerbation possible pna
Wean O2 supplementation to baseline 2L as tolerated
Incentive spirometer
#Possible superimposed PNA
Persistent Leukocytosis
Procal elevated
Augmentin started w/ probiotic
#Allergic asthma
#Chronic cough
#Suspected obstructive sleep apnea
Continue Singulair, bronchodilators
#Permanent atrial fibrillation as per cardio
Status post AV chris ablation with pacemaker
Continue Eliquis
#Esophagitis
Continue PPI twice daily for 2 months after EGD on 10/14, then daily
Continue Carafate
#Chronic ambulatory dysfunction
She uses a wheelchair at baseline, lives alone
Will need home care upon discharge
#Chronic hypotension
Continue midodrine 10 mg twice a day
#History of stroke
Continue statin
#Morbid obesity due to excess calories
Affects all aspects of care
#History of breast cancer
Status post chemo/surgery/radiation
#Constipation
cont bowel regimen
once suppository attempted
#reports Hemorrhoid pain
Anusol suppository bedtime 7 days ordered
PT eval
DVT prophylaxis�Eliquis
Full code
Total time spent to see the patient on the floor, examine the patient, review data and lab results, discuss treatment plan with patient, nursing staff around 50 minutes.
Physical Exam
General: Morbidly obese, no acute distress
HEENT: Normocephalic, Atraumatic, EOMI, MMM
Respiratory: Diminished breath sounds at the bases
Cardiac: Normal S1/S2, Regular Rate and Rhythm
GI: Soft, Nontender, Nondistended, Normal Bowel Sounds
Extremities: No Clubbing, Cyanosis, or Edema
Neuro: Nonfocal/Grossly Intact
Psych: Calm, Cooperative
Anticipated Discharge: 24 - 48 hours
Subjective/Interval History
-
Date of Service: November 04, 2023
Seen and examined at bedside in no acute distress resting comfortably in bed. Reports resolution of constipation and improvement in hemorrhoid pain w/ anusol suppository. Oxygen requirement remains slightly elevated from baseline. 3L as oppose to
2L.
Objective Data
-
Labs:
Laboratory Results
11/04/23
06:59
WBC Pending
Hgb Pending
Hct Pending
Plt Count Pending
Sodium Pending
Potassium Pending
Chloride Pending
Carbon Dioxide Pending
BUN Pending
Creatinine Pending
Glucose Pending
Calcium Pending
Vital Signs:
Vital Signs
Temp Pulse Resp BP Pulse Ox
97.5 F 73 18 116/73 96
11/04/23 03:21 11/04/23 03:21 11/04/23 03:21 11/04/23 03:21 11/04/23 03:21
I&O
11/03/23 11/04/23 11/05/23
06:59 06:59 06:59
Intake Total 960 / 960 940 / 940
Output Total 1950 / 1949 850 / 850
Balance -990 / -990 90 / 90
[2023-11-04 07:33] LABS: Hematocrit 41.2 % (37.0-47.0); Hemoglobin 13.2 g/dL (12.0-16.0); Mean Corpuscular Hgb 29.9 pg (27.0-31.0); Mean Corpuscular Volume 93.4 fL (81.0-99.0); Platelet Count 416 10^3/uL (130-400); Red Blood Cell Count 4.41 10^6/uL (4.20-5.40); Red Cell Dist. Width 15.9 % (11.5-14.5); White Blood Cell Count 13.4 10^3/uL (4.8-10.8)
[2023-11-04] MEDS: PULMICORT INH ×2 (08:01→20:13)
[2023-11-04] MEDS: ADVAIR HFA 115/21 MCG INHALER INH ×2 (08:01→20:13)
[2023-11-04 08:09] LABS: Blood Urea Nitrogen 23 mg/dl (7-17); Calcium 8.9 mg/dl (8.4-10.2); Carbon Dioxide 28 mmol/L (22-30); Chloride 93 mmol/L (98-107); Estimated Creatinine Clearance 88 ml/min; Glucose 107 mg/dl (70-99); Magnesium 1.8 mg/dl (1.6-2.3); Phosphorus 4.3 mg/dl (2.5-4.5); Potassium 3.8 mmol/L (3.5-5.1); Sodium 132 mmol/L (135-145); eGFR > 60.00
[2023-11-04 11:00] VITALS: BP 140/77
[2023-11-04 11:04] LABS: Procalcitonin 0.45 ng/ml (0.0-0.25)
[2023-11-04 11:05] LABS: NT-proBNP 8500 pg/ml
[2023-11-04] MEDS: LASIX 80 MG IV ×2 (11:26→18:06)
[2023-11-04] MEDS: FLUSH (NSS) 2 FLUSH IV (11:27)
[2023-11-04] MEDS: ELIQUIS 5 MG PO ×2 (11:28→19:47)
[2023-11-04] MEDS: ProAmatine 10 MG PO ×2 (11:28→19:47)
[2023-11-04] MEDS: THERAGRAN 1 TABLET PO (11:28)
[2023-11-04] MEDS: MIRALAX 17 GRAMS PO (11:29)
--- NOTE | 2023-11-04 11:32 | W.PN.CD ---
Today's Communication / Plan
-
await chest x ray
contiue current diuretic
fluid restrict monitor sodium
if CXR without improvement , may need to considier addtional diuretic
Impression / Plan
-
Dyspnea
- CXR c/w heart failure
- May have additional contributors
HFrEF/HFmidrangeEF, acute on chronic
- Continue diuresis
- lots of variablity of weights recorded. ? down 2 kg. she says hsjuliana feels a little better but proBNP unchanged
- monitor sodium
- fluid restriction
-
Afib, ATach, permanent
- Treated with AV node ablation/pacemaker
- Anticoagulated with Eliquis
- [id number] (age1, HF, HTN, female, hx CVA)
Obesity
Subjective:
Feels better. Not quite at baseline.
Physical Exam
Vital Signs/Labs
Vital Signs
Temp Pulse Resp BP Pulse Ox
98.3 F 73 18 102/53 91
11/04/23 07:00 11/04/23 07:00 11/04/23 07:00 11/04/23 07:00 11/04/23 07:00
11/03/23 11/04/23 11/05/23
06:59 06:59 06:59
Actual Weight 110.858 kg 111.72 kg
11/04/23 06:59
11/04/23 06:59
Magnesium 1.8 mg/dl (1.6-2.3) 11/04/23 06:59
10/30/23 11/04/23
21:09 10:17
Bvu-K-Tcggbvazmgy Pept 8700 8500
Physical Exam
Constitutional: No acute distress
Cardiovascular: Rhythm & rate is regular
Respiratory: Wheeze Absent and Rhonchi Absent
GI: Soft
Data Reviewed
-
Date of Service: November 04, 2023
[2023-11-04] MEDS: KCL 40 MEQ PO (11:39)
[2023-11-04] MEDS: SENOKOT-S 1 TABLET PO ×2 (11:39→19:48)
[2023-11-04] MEDS: PROTONIX 40 MG PO ×2 (11:52→19:48)
[2023-11-04] MEDS: DESITIN MAXIMUM STRENGTH PASTE 1 APPLIC TOPICAL ×2 (11:55→19:47)
[2023-11-04 12:35] LABS: Urine Albumin Trace (Neg - Trace); Urine Bilirubin 1+ (Negative); Urine Character Clear (Clear); Urine Color Yellow; Urine Glucose Negative (Negative); Urine Ketone Negative (Negative); Urine Leukocyte Trace (Negative); Urine Nitrite Negative (Negative); Urine Occult Blood 2+ (Negative); Urine Urobilinogen 1+ (Neg - 1+)
[2023-11-04 12:59] LABS: Urine Mucus Moderate; Urine Squamous Cell 26-30 /LPF (Few)
[2023-11-04 13:01] LABS: Urine Amorphous Seen
[2023-11-04 13:02] LABS: Urine White Cell 0-2 /HPF (0-5)
[2023-11-04] MEDS: AUGMENTIN 875 MG/125 MG 1 TABLET PO ×2 (14:32→19:47)
[2023-11-04] MEDS: ALDACTONE 25 MG PO (14:32)
[2023-11-04] MEDS: VISBIOME 2 CAP PO (14:32)
[2023-11-04 15:00] VITALS: BP 113/66
[2023-11-04] MEDS: XOPENEX 0.63 MG INHALANT SOLUTION INH (15:20)
[2023-11-04 19:00] VITALS: BP 128/50
[2023-11-04] MEDS: CRESTOR 20 MG PO (21:53)
[2023-11-04] MEDS: SINGULAIR 10 MG PO (21:53)
[2023-11-04] MEDS: MUCINEX 600 MG PO (21:53)
[2023-11-04] MEDS: ANUSOL HC 25 MG RECTAL (21:54)
[2023-11-04 23:00] VITALS: BP 142/80
[2023-11-05] MEDS: CARAFATE 1 GRAM PO ×2 (05:37→17:01)
[2023-11-05 06:00] VITALS: BMI 46.7
[2023-11-05] MEDS: PULMICORT 0.5 MG INH ×2 (07:21→20:24)
--- NOTE | 2023-11-05 07:21 | W.PN.HOSP.TC ---
Today's Communication/Plan
-
cont diuresis as per cardio
incentive spirometer
wean O2 supplementation as tolerated
cont bowel regimen
cont abx
PT/OT
Assessment / Plan
Assessment / Plan
HPI: 68 y/o female with persistent AFIB on Eliquis, hx PVI 2022- repeat 02/2023, pacemaker and AVN ablation 08/2023, HFpEF, moderate MS, HTN, CVA 1988, breast cancer 2010 with hx chemo/surgery/radiation, obesity, lymphedema. Patient with recent
hospitalization and subsequent discharge 10/22/23. patient was reported to have black stools and had endoscopy and colonoscopy 10/15/2023 evidence of esophagitis. Anticoagulation was resumed. Patient did receive additional IV Lasix for treatment of
heart failure during that admission and was transition to Lasix 80 mg daily. She states she is compliant with her medications her weights have not changed.
#Acute heart failure with reduced ejection fraction
#Shortness of breath
Appreciate cardiology input, continue Lasix 80 mg IV twice daily, trend creatinine, trend daily weights
Continue spironolactone
daily weights I/O
repeat chest x-ray and BNP similar to prior
#Acute on Chronic hypoxic respiratory failure baseline 2L
Due to heart failure exacerbation possible pna
Wean O2 supplementation to baseline 2L as tolerated
Incentive spirometer
#Possible superimposed PNA
Persistent Leukocytosis
Procal elevated
Augmentin started w/ probiotic
#Allergic asthma
#Chronic cough
#Suspected obstructive sleep apnea
Continue Singulair, bronchodilators
#Permanent atrial fibrillation as per cardio
Status post AV chris ablation with pacemaker
Continue Eliquis
#Esophagitis
Continue PPI twice daily for 2 months after EGD on 10/14, then daily
Continue Carafate
#Chronic ambulatory dysfunction
She uses a wheelchair at baseline, lives alone
Will need home care upon discharge
#Chronic hypotension
Continue midodrine 10 mg twice a day
#History of stroke
Continue statin
#Morbid obesity due to excess calories
Affects all aspects of care
#History of breast cancer
Status post chemo/surgery/radiation
#Constipation
cont bowel regimen
once suppository attempted
#reports Hemorrhoid pain
Anusol suppository bedtime 7 days ordered
PT eval
DVT prophylaxis�Eliquis
Full code
Total time spent to see the patient on the floor, examine the patient, review data and lab results, discuss treatment plan with patient, nursing staff around 50 minutes.
Physical Exam
General: Morbidly obese, no acute distress
HEENT: Normocephalic, Atraumatic, EOMI, MMM
Respiratory: Diminished breath sounds at the bases
Cardiac: Normal S1/S2, Regular Rate and Rhythm
GI: Soft, Nontender, Nondistended, Normal Bowel Sounds
Extremities: No Clubbing, Cyanosis, or Edema
Neuro: Nonfocal/Grossly Intact
Psych: Calm, Cooperative
Anticipated Discharge: 24 - 48 hours
Subjective/Interval History
-
Date of Service: November 05, 2023
No acute distress. Oxygen requirement improved to baseline 2 L. Weight however continues to trend up. Patient also continues to endorse constipation though large bowel movement was documented yesterday.
Objective Data
-
Labs:
Laboratory Results
11/05/23
06:00
WBC Pending
Hgb Pending
Hct Pending
Plt Count Pending
Sodium Pending
Potassium Pending
Chloride Pending
Carbon Dioxide Pending
BUN Pending
Creatinine Pending
Glucose Pending
Calcium Pending
Vital Signs:
Vital Signs
Temp Pulse Resp BP Pulse Ox
97.5 F 76 18 142/80 96
11/04/23 23:00 11/04/23 23:00 11/04/23 23:00 11/04/23 23:00 11/04/23 23:00
I&O
11/04/23 11/05/23 11/06/23
06:59 06:59 06:59
Intake Total 940 / 940 1080 / 1080
Output Total 850 / 850
Balance 90 / 90 1080 / 1080
[2023-11-05] MEDS: ADVAIR HFA 115/21 MCG INHALER 2 PUFF INH ×2 (07:22→20:24)
[2023-11-05 08:09] LABS: Hematocrit 38.9 % (37.0-47.0); Hemoglobin 12.5 g/dL (12.0-16.0); Mean Corp Hgb Conc. 32.1 g/dL (33.0-37.0); Mean Corpuscular Hgb 30.3 pg (27.0-31.0); Mean Corpuscular Volume 94.2 fL (81.0-99.0); Mean Platelet Volume 10.1 fL (7.4-10.4); Platelet Count 427 10^3/uL (130-400); Red Blood Cell Count 4.13 10^6/uL (4.20-5.40); Red Cell Dist. Width 15.8 % (11.5-14.5); White Blood Cell Count 13.3 10^3/uL (4.8-10.8)
[2023-11-05 08:11] VITALS: BP 122/65
[2023-11-05 09:13] LABS: Blood Urea Nitrogen 23 mg/dl (7-17); Calcium 8.8 mg/dl (8.4-10.2); Carbon Dioxide 27 mmol/L (22-30); Chloride 93 mmol/L (98-107); Estimated Creatinine Clearance 88 ml/min; Glucose 129 mg/dl (70-99); Magnesium 1.8 mg/dl (1.6-2.3); Phosphorus 4.1 mg/dl (2.5-4.5); Sodium 129 mmol/L (135-145); eGFR > 60.00
[2023-11-05] MEDS: DESITIN MAXIMUM STRENGTH PASTE 1 APPLIC TOPICAL ×2 (10:21→21:51)
[2023-11-05] MEDS: MIRALAX 17 GRAMS PO (10:26)
[2023-11-05] MEDS: LASIX 80 MG IV ×2 (10:29→17:01)
[2023-11-05] MEDS: KCL 40 MEQ PO (10:30)
[2023-11-05] MEDS: VISBIOME 2 CAP PO (10:31)
[2023-11-05] MEDS: ALDACTONE 25 MG PO (10:31)
[2023-11-05] MEDS: ProAmatine 10 MG PO ×2 (10:31→21:54)
[2023-11-05] MEDS: SENOKOT-S 1 TABLET PO ×2 (10:31→21:47)
[2023-11-05] MEDS: AUGMENTIN 875 MG/125 MG 1 TABLET PO ×2 (10:33→21:46)
[2023-11-05] MEDS: PROTONIX 40 MG PO ×2 (10:33→21:46)
[2023-11-05] MEDS: ELIQUIS 5 MG PO ×2 (10:34→21:46)
[2023-11-05] MEDS: THERAGRAN PO (10:52)
--- NOTE | 2023-11-05 11:54 | W.PN.CD ---
Today's Communication / Plan
-
IV diuresis
Impression / Plan
-
Dyspnea
- CXR c/w heart failure
- May have additional contributors
HFrEF/HFmidrangeEF, acute on chronic
- Continue diuresis w/ IV lasix
- lots of variablity of weights recorded. ? down 2 kg. says she's feeling better, however weight has been increasing?
- If her weights do not decrease consider RHC for WednesdayNovember 07
- needs standing weights
- monitor sodium
- fluid restriction
Afib, ATach, permanent
- Treated with AV node ablation/pacemaker
- Anticoagulated with Eliquis
- [id number] (age1, HF, HTN, female, hx CVA)
Obesity
Subjective:
Continues to feels better. Not quite at baseline.
Physical Exam
Vital Signs/Labs
Vital Signs
Temp Pulse Resp BP Pulse Ox
97.4 F 70 16 122/65 93
11/05/23 08:11 11/05/23 08:11 11/05/23 08:11 11/05/23 08:11 11/05/23 08:11
11/04/23 11/05/23 11/06/23
06:59 06:59 06:59
Actual Weight 246 lb 4.8 oz 247 lb 1 oz
11/05/23 07:21
11/05/23 07:21
Magnesium 1.8 mg/dl (1.6-2.3) 11/05/23 07:21
10/30/23 11/04/23
21:09 10:17
Uxe-A-Bdiiwrzvkcf Pept 8700 8500
Physical Exam
Constitutional: No acute distress
EENT: Anicteric
Cardiovascular: Rhythm & rate is regular (paced) and Pedal edema is absent
Respiratory: Respiratory effort normal and Lungs clear to auscul.
GI: Soft
Neuro/Psych: AO x 3
Data Reviewed
-
Date of Service: November 05, 2023
Echo: Report Reviewed by me
Labs: Labs Reviewed by me
--- NOTE | 2023-11-05 13:34 | CM ---
Patient for discharge home with [facility] and home O2. currently patient is on 3 liters and at home patient is on 2 liters. CM spoke with [facility] FLASH Faulkner: [phone] who indicated that she would be happy to help with any questions about
in network providers. FLASH will continue to follow for discharge planning needs.
Plan; home with [facility] and home O2; watch for increased home O2 needs
[2023-11-05 16:18] VITALS: BP 120/75
[2023-11-05] MEDS: MUCINEX 600 MG PO (21:47)
[2023-11-05] MEDS: CRESTOR 20 MG PO (21:47)
[2023-11-05] MEDS: SINGULAIR 10 MG PO (21:48)
[2023-11-05] MEDS: ANUSOL HC 25 MG RECTAL (21:48)
[2023-11-05 23:00] VITALS: BP 129/48
[2023-11-06 06:00] VITALS: BMI 46.2
[2023-11-06] MEDS: CARAFATE 1 GRAM PO ×2 (06:20→16:26)
[2023-11-06 07:00] VITALS: BP 114/67
--- NOTE | 2023-11-06 07:10 | W.PN.HOSP.TC ---
Today's Communication/Plan
-
cont diuresis as per cardio
incentive spirometer
cont bowel regimen
cont abx
PT/OT
Assessment / Plan
Assessment / Plan
HPI: 68 y/o female with persistent AFIB on Eliquis, hx PVI 2022- repeat 02/2023, pacemaker and AVN ablation 08/2023, HFpEF, moderate MS, HTN, CVA 1988, breast cancer 2010 with hx chemo/surgery/radiation, obesity, lymphedema. Patient with recent
hospitalization and subsequent discharge 10/22/23. patient was reported to have black stools and had endoscopy and colonoscopy 10/15/2023 evidence of esophagitis. Anticoagulation was resumed. Patient did receive additional IV Lasix for treatment of
heart failure during that admission and was transition to Lasix 80 mg daily. She states she is compliant with her medications her weights have not changed.
#Acute heart failure with reduced ejection fraction
#Shortness of breath
Appreciate cardiology input, continue Lasix 80 mg IV twice daily, trend creatinine, trend daily weights
Continue spironolactone
daily weights I/O
repeat chest x-ray and BNP similar to prior
#Acute on Chronic hypoxic respiratory failure baseline 2L
Due to heart failure exacerbation possible pna
Wean O2 supplementation to baseline 2L as tolerated
Incentive spirometer
#Possible superimposed PNA
Persistent Leukocytosis
Procal elevated
Augmentin started w/ probiotic 11/03 cont
#Allergic asthma
#Chronic cough
#Suspected obstructive sleep apnea
Continue Singulair, bronchodilators
#Permanent atrial fibrillation as per cardio
Status post AV chris ablation with pacemaker
Continue Eliquis
#Esophagitis
Continue PPI twice daily for 2 months after EGD on 10/14, then daily
Continue Carafate
#Chronic ambulatory dysfunction
She uses a wheelchair at baseline, lives alone
Will need home care upon discharge
#Chronic hypotension
Continue midodrine 10 mg twice a day
#History of stroke
Continue statin
#Morbid obesity due to excess calories
Affects all aspects of care
#History of breast cancer
Status post chemo/surgery/radiation
#Constipation
cont bowel regimen
once suppository attempted
#reports Hemorrhoid pain
Anusol suppository bedtime 7 days ordered
PT eval
DVT prophylaxis�Eliquis
Full code
Total time spent to see the patient on the floor, examine the patient, review data and lab results, discuss treatment plan with patient, nursing staff around 50 minutes.
Physical Exam
General: Morbidly obese, no acute distress
HEENT: Normocephalic, Atraumatic, EOMI, MMM
Respiratory: Diminished breath sounds at the bases
Cardiac: Normal S1/S2, Regular Rate and Rhythm
GI: Soft, Nontender, Nondistended, Normal Bowel Sounds
Extremities: No Clubbing, Cyanosis, or Edema
Neuro: Nonfocal/Grossly Intact
Psych: Calm, Cooperative
Anticipated Discharge: 24 - 48 hours
Subjective/Interval History
-
Date of Service: November 06, 2023
Patient reports feeling well. Weight trending down. Oxygen at baseline 2L. Denies new acute issues at this time.
Objective Data
-
Labs:
Laboratory Results
11/06/23
06:00
WBC Pending
Hgb Pending
Hct Pending
Plt Count Pending
Sodium Pending
Potassium Pending
Chloride Pending
Carbon Dioxide Pending
BUN Pending
Creatinine Pending
Glucose Pending
Calcium Pending
Vital Signs:
Vital Signs
Temp Pulse Resp BP Pulse Ox
97.9 F 72 16 129/48 96
11/05/23 23:00 11/05/23 23:00 11/05/23 23:00 11/05/23 23:00 11/05/23 23:00
I&O
11/05/23 11/06/23 11/07/23
06:59 06:59 06:59
Intake Total 1080 / 1080 480 / 480
Balance 1080 / 1080 480 / 480
[2023-11-06] MEDS: ADVAIR HFA 115/21 MCG INHALER 2 PUFF INH (08:07)
[2023-11-06] MEDS: PULMICORT 0.5 MG INH (08:08)
[2023-11-06 08:40] LABS: Hematocrit 38.5 % (37.0-47.0); Hemoglobin 12.8 g/dL (12.0-16.0); Mean Corp Hgb Conc. 33.2 g/dL (33.0-37.0); Mean Corpuscular Hgb 30.7 pg (27.0-31.0); Mean Corpuscular Volume 92.3 fL (81.0-99.0); Mean Platelet Volume 9.8 fL (7.4-10.4); Platelet Count 437 10^3/uL (130-400); Red Blood Cell Count 4.17 10^6/uL (4.20-5.40); Red Cell Dist. Width 15.9 % (11.5-14.5); White Blood Cell Count 13.1 10^3/uL (4.8-10.8)
[2023-11-06] MEDS: MIRALAX 17 GRAMS PO (08:40)
[2023-11-06] MEDS: KCL 40 MEQ PO (08:40)
[2023-11-06] MEDS: LASIX 80 MG IV ×2 (08:40→16:26)
[2023-11-06] MEDS: VISBIOME 2 CAP PO (08:40)
[2023-11-06] MEDS: ProAmatine 10 MG PO ×2 (08:40→20:40)
[2023-11-06] MEDS: SENOKOT-S 1 TABLET PO ×2 (08:40→20:26)
[2023-11-06] MEDS: AUGMENTIN 875 MG/125 MG 1 TABLET PO ×2 (08:41→20:25)
[2023-11-06] MEDS: PROTONIX 40 MG PO ×2 (08:41→20:26)
[2023-11-06] MEDS: ELIQUIS 5 MG PO ×2 (08:41→20:25)
[2023-11-06 08:56] LABS: Blood Urea Nitrogen 23 mg/dl (7-17); Carbon Dioxide 26 mmol/L (22-30); Chloride 95 mmol/L (98-107); Estimated Creatinine Clearance 87 ml/min; Glucose 116 mg/dl (70-99); Magnesium 1.9 mg/dl (1.6-2.3); Phosphorus 3.8 mg/dl (2.5-4.5); Potassium 3.7 mmol/L (3.5-5.1); Sodium 133 mmol/L (135-145); eGFR > 60.00
[2023-11-06] MEDS: ALDACTONE 25 MG PO (09:05)
[2023-11-06] MEDS: THERAGRAN 1 TABLET PO (09:05)
[2023-11-06] MEDS: DESITIN MAXIMUM STRENGTH PASTE 1 APPLIC TOPICAL ×2 (09:07→20:33)
--- NOTE | 2023-11-06 12:08 | W.PN.CD ---
Today's Communication / Plan
-
cont iv diuresis
Impression / Plan
-
Dyspnea
- CXR c/w heart failure
- May have additional contributors
- consider pulmonary consult
HFrEF/HFmidrangeEF, acute on chronic
- Continue diuresis w/ IV lasix
- Weight is now 244 lbs breathing still not at baseline
- RHC for WednesdayNovember 07
- needs standing weights
- monitor sodium
- fluid restriction
Afib, ATach, permanent
- Treated with AV node ablation/pacemaker
- Anticoagulated with Eliquis
- [id number] (age1, HF, HTN, female, hx CVA)
Obesity
Subjective:
Continues to feels better still not quite at baseline, although she tells me that her breathing hasn't been normal in months, uses a wheelchair and ultimately wanted to go back to sleep today.
Physical Exam
Vital Signs/Labs
Vital Signs
Temp Pulse Resp BP Pulse Ox
98 F 72 16 114/67 96
11/06/23 07:00 11/06/23 08:09 11/06/23 08:09 11/06/23 07:00 11/06/23 09:24
11/05/23 11/06/23 11/07/23
06:59 06:59 06:59
Actual Weight 247 lb 1 oz 244 lb 7 oz
11/06/23 07:59
11/06/23 07:59
Magnesium 1.9 mg/dl (1.6-2.3) 11/06/23 07:59
10/30/23 11/04/23
21:09 10:17
Vco-E-Niqdpgnhueq Pept 8700 8500
Physical Exam
Constitutional: No acute distress
Cardiovascular: Rhythm & rate is regular and Pedal edema is absent
Respiratory: Respiratory effort normal and Lungs clear to auscul.
GI: Soft
Neuro/Psych: AO x 3
Data Reviewed
-
Date of Service: November 06, 2023
Echo: Report Reviewed by me
Labs: Labs Reviewed by me
[2023-11-06 15:00] VITALS: BP 128/63
[2023-11-06 19:00] VITALS: BP 125/79
[2023-11-06] MEDS: ADVAIR HFA 115/21 MCG INHALER INH (19:56)
[2023-11-06] MEDS: PULMICORT INH (19:56)
[2023-11-06] MEDS: ANUSOL HC 25 MG RECTAL (20:26)
[2023-11-06] MEDS: MUCINEX 600 MG PO (20:27)
[2023-11-06] MEDS: CRESTOR 20 MG PO (20:27)
[2023-11-06] MEDS: SINGULAIR 10 MG PO (20:27)
[2023-11-06 21:00] VITALS: BP 118/80
--- NOTE | 2023-11-06 21:55 | PTCARENOTE ---
Pt. noted she was having right sided chest pain 08/17, vs stable, 96% 2L, vague in describing her pain, noted 'I think it's stabbing', notified ZAKI Borden, ordered EKG, gave pt. Tylenol per MAR, pt. noted she is starting to feel better, will
continue to monitor.
[2023-11-06] MEDS: TYLENOL 650 MG PO (21:56)
[2023-11-06 23:00] VITALS: BP 123/98
[2023-11-07] MEDS: CARAFATE 1 GRAM PO (05:39)
[2023-11-07] MEDS: TYLENOL 650 MG PO (05:42)
[2023-11-07 05:55] VITALS: BMI 45.5
[2023-11-07 06:00] VITALS: BMI 45.4
--- NOTE | 2023-11-07 06:31 | W.PN.HOSP.TC ---
Today's Communication/Plan
-
cont diuresis as per cardio
cont abx
encourage participation PT/OT
trend wbc
Assessment / Plan
Assessment / Plan
HPI: 68 y/o female with persistent AFIB on Eliquis, hx PVI 2022- repeat 02/2023, pacemaker and AVN ablation 08/2023, HFpEF, moderate MS, HTN, CVA 1988, breast cancer 2010 with hx chemo/surgery/radiation, obesity, lymphedema. Patient with recent
hospitalization and subsequent discharge 10/22/23. patient was reported to have black stools and had endoscopy and colonoscopy 10/15/2023 evidence of esophagitis. Anticoagulation was resumed. Patient did receive additional IV Lasix for treatment of
heart failure during that admission and was transition to Lasix 80 mg daily. She states she is compliant with her medications her weights have not changed.
#Acute heart failure with reduced ejection fraction
#Shortness of breath
Appreciate cardiology input, continue Lasix 80 mg IV twice daily, trend creatinine, trend daily weights
Continue spironolactone
daily weights I/O
repeat chest x-ray and BNP similar to prior
cardiology considering RHC
#Acute on Chronic hypoxic respiratory failure baseline 2L
Due to heart failure exacerbation possible pna
Wean O2 supplementation to baseline 2L as tolerated
Incentive spirometer
#Possible superimposed PNA
Persistent Leukocytosis
Procal elevated
Augmentin started w/ probiotic 11/03 cont
#Allergic asthma
#Chronic cough
#Suspected obstructive sleep apnea
Continue Singulair, bronchodilators
#Permanent atrial fibrillation as per cardio
Status post AV chris ablation with pacemaker
Continue Eliquis
#Esophagitis
Continue PPI twice daily for 2 months after EGD on 10/14, then daily
Continue Carafate
#Chronic ambulatory dysfunction
She uses a wheelchair at baseline, lives alone
Will need home care upon discharge
#Chronic hypotension
Continue midodrine 10 mg twice a day
#History of stroke
Continue statin
#Morbid obesity due to excess calories
Affects all aspects of care
#History of breast cancer
Status post chemo/surgery/radiation
#Constipation
cont bowel regimen
once suppository attempted
#reports Hemorrhoid pain
Anusol suppository bedtime 7 days ordered
PT eval
DVT prophylaxis�Eliquis
Full code
discussed with patient and primary contact friend Elan at bedside
Total time spent to see the patient on the floor, examine the patient, review data and lab results, discuss treatment plan with patient, nursing staff around 50 minutes.
Physical Exam
General: Morbidly obese, no acute distress
HEENT: Normocephalic, Atraumatic, EOMI, MMM
Respiratory: Diminished breath sounds at the bases
Cardiac: Normal S1/S2, Regular Rate and Rhythm
GI: Soft, Nontender, Nondistended, Normal Bowel Sounds
Extremities: No Clubbing, Cyanosis, or Edema
Neuro: Nonfocal/Grossly Intact
Psych: Calm, Cooperative
Anticipated Discharge: 24 - 48 hours
Subjective/Interval History
-
Date of Service: November 07, 2023
No acute distress resting comfortably in bed. Reports overall feeling well though generalized weakness/fatigue
Objective Data
-
Labs:
Laboratory Results
11/07/23
06:00
WBC Pending
Hgb Pending
Hct Pending
Plt Count Pending
Sodium Pending
Potassium Pending
Chloride Pending
Carbon Dioxide Pending
BUN Pending
Creatinine Pending
Glucose Pending
Calcium Pending
Vital Signs:
Vital Signs
Temp Pulse Resp BP Pulse Ox
97.9 F 100 16 123/98 96
11/06/23 23:00 11/06/23 23:00 11/06/23 23:00 11/06/23 23:00 11/06/23 23:00
I&O
11/05/23 11/06/23 11/07/23
06:59 06:59 06:59
Intake Total 1080 / 1080 480 / 480 1460 / 1460
Output Total 650 / 650
Balance 1080 / 1080 480 / 480 810 / 810
[2023-11-07 07:00] VITALS: BP 93/66
[2023-11-07 07:40] LABS: Blood Urea Nitrogen 23 mg/dl (7-17); Calcium 8.9 mg/dl (8.4-10.2); Carbon Dioxide 28 mmol/L (22-30); Chloride 94 mmol/L (98-107); Estimated Creatinine Clearance 87 ml/min; Glucose 116 mg/dl (70-99); Magnesium 1.9 mg/dl (1.6-2.3); Phosphorus 3.8 mg/dl (2.5-4.5); Sodium 131 mmol/L (135-145); eGFR > 60.00
[2023-11-07 07:43] LABS: Hematocrit 37.4 % (37.0-47.0); Hemoglobin 12.5 g/dL (12.0-16.0); Mean Corp Hgb Conc. 33.4 g/dL (33.0-37.0); Mean Corpuscular Hgb 30.5 pg (27.0-31.0); Mean Corpuscular Volume 91.2 fL (81.0-99.0); Mean Platelet Volume 10.1 fL (7.4-10.4); Platelet Count 412 10^3/uL (130-400); Red Cell Dist. Width 15.9 % (11.5-14.5); White Blood Cell Count 13.9 10^3/uL (4.8-10.8)
[2023-11-07] MEDS: ADVAIR HFA 115/21 MCG INHALER 2 PUFF INH ×2 (07:47→19:44)
[2023-11-07] MEDS: PULMICORT 0.5 MG INH ×2 (07:48→19:44)
[2023-11-07] MEDS: KCL 40 MEQ PO (08:27)
[2023-11-07] MEDS: LASIX 80 MG IV (08:27)
[2023-11-07] MEDS: VISBIOME 2 CAP PO (08:27)
[2023-11-07] MEDS: SENOKOT-S 1 TABLET PO (08:28)
[2023-11-07] MEDS: ELIQUIS 5 MG PO ×2 (08:28→21:31)
[2023-11-07] MEDS: ProAmatine 10 MG PO ×2 (08:28→21:31)
[2023-11-07] MEDS: AUGMENTIN 875 MG/125 MG 1 TABLET PO ×2 (08:28→21:31)
[2023-11-07] MEDS: THERAGRAN 1 TABLET PO (08:28)
[2023-11-07] MEDS: MIRALAX 17 GRAMS PO (08:29)
[2023-11-07] MEDS: DESITIN MAXIMUM STRENGTH PASTE 1 APPLIC TOPICAL ×2 (08:29→21:31)
[2023-11-07] MEDS: ALDACTONE 25 MG PO (08:29)
[2023-11-07] MEDS: PROTONIX 40 MG PO ×2 (08:32→21:35)
--- NOTE | 2023-11-07 11:00 | W.PN.CD ---
Today's Communication / Plan
-
CXR
Lasix daily
Will follow up CXR if still appears congested likely RHC tomorrow
Impression / Plan
-
Dyspnea
- CXR c/w heart failure
- May have additional contributors
- consider pulmonary consult
HFrEF/HFmidrangeEF, acute on chronic
- Start dialy lasix 80 daily po home dose
- Weight is now 240 lbs, I am not sure what her baseline is but her lungs sound clear
- repeat CXR today
- needs standing weights
- monitor sodium
- fluid restriction
Afib, ATach, permanent
- Treated with AV node ablation/pacemaker
- Anticoagulated with Eliquis
- [id number] (age1, HF, HTN, female, hx CVA)
Obesity
Subjective:
Weight is 240 repeat CXR today
Physical Exam
Vital Signs/Labs
Vital Signs
Temp Pulse Resp BP Pulse Ox
97.5 F 73 16 93/66 96
11/07/23 07:00 11/07/23 07:59 11/07/23 07:59 11/07/23 07:00 11/07/23 07:59
11/06/23 11/07/23 11/08/23
06:59 06:59 06:59
Actual Weight 244 lb 7 oz 240 lb 8 oz
11/07/23 06:48
11/07/23 06:48
Magnesium 1.9 mg/dl (1.6-2.3) 11/07/23 06:48
10/30/23 11/04/23
21:09 10:17
Xqp-Z-Farwtpejeli Pept 8700 8500
Physical Exam
Constitutional: No acute distress
EENT: Anicteric
Cardiovascular: Rhythm & rate is regular and Pedal edema is absent
Respiratory: Respiratory effort normal and Lungs clear to auscul.
GI: Soft
Neuro/Psych: AO x 3
Data Reviewed
-
Date of Service: November 07, 2023
Echo: Report Reviewed by me
Labs: Labs Reviewed by me
[2023-11-07 15:00] VITALS: BP 132/75
--- NOTE | 2023-11-07 15:35 | CHAP ---
Rick Gilbert said she was doing okay - growing weary of hospital visits. Emotional and spiritual support provided.
[2023-11-07] MEDS: CARAFATE PO (15:38)
[2023-11-07] MEDS: SENOKOT-S PO (21:30)
[2023-11-07] MEDS: ANUSOL HC RECTAL (21:30)
[2023-11-07] MEDS: CRESTOR 20 MG PO (21:35)
[2023-11-07] MEDS: MUCINEX 600 MG PO (21:35)
[2023-11-07] MEDS: SINGULAIR 10 MG PO (21:35)
[2023-11-07 23:45] VITALS: BP 103/66
[2023-11-08] MEDS: TYLENOL 650 MG PO (00:41)
[2023-11-08] MEDS: CARAFATE 1 GRAM PO ×2 (05:51→16:04)
[2023-11-08 06:00] VITALS: BMI 45.4
[2023-11-08] MEDS: ADVAIR HFA 115/21 MCG INHALER 2 PUFF INH ×2 (07:22→19:24)
[2023-11-08] MEDS: PULMICORT 0.5 MG INH ×2 (07:22→19:25)
[2023-11-08 08:13] VITALS: BP 100/62
[2023-11-08 08:39] LABS: Hematocrit 37.9 % (37.0-47.0); Hemoglobin 12.7 g/dL (12.0-16.0); Mean Corp Hgb Conc. 33.5 g/dL (33.0-37.0); Mean Corpuscular Hgb 30.5 pg (27.0-31.0); Mean Corpuscular Volume 91.1 fL (81.0-99.0); Mean Platelet Volume 10.3 fL (7.4-10.4); Platelet Count 401 10^3/uL (130-400); Red Blood Cell Count 4.16 10^6/uL (4.20-5.40); Red Cell Dist. Width 15.9 % (11.5-14.5); White Blood Cell Count 13.1 10^3/uL (4.8-10.8)
--- NOTE | 2023-11-08 08:50 | W.PN.CD ---
Today's Communication / Plan
-
IV diuresis
Impression / Plan
-
Dyspnea
- CXR c/w heart failure, and no significant improvement on yesterday
- May have additional contributors
- consider pulmonary consult
HFrEF/HFmidrangeEF, acute on chronic
- unchanged CXR, will cont IV diuresis, additionally her breathing has not improved
- she would like to chat with Dr Montes, possible RHC on Wednesday
- Weight is now 240 lbs, I am not sure what her baseline is but her lungs sound clear
- needs standing weights
- monitor sodium
- fluid restriction
Afib, ATach, permanent
- Treated with AV node ablation/pacemaker
- Anticoagulated with Eliquis
- [id number] 6 (age1, HF, HTN, female, hx CVA)
Obesity
Subjective:
Cont IV diuresis consider RHC Wednesday, discussed possible RHC today November 07, however, she did NOT want it today
Physical Exam
Vital Signs/Labs
Vital Signs
Temp Pulse Resp BP Pulse Ox
97.6 F 72 16 100/62 98
11/08/23 08:13 11/08/23 08:13 11/08/23 08:13 11/08/23 08:13 11/08/23 08:13
11/07/23 11/08/23 11/09/23
06:59 06:59 06:59
Actual Weight 240 lb 4 oz
11/08/23 07:52
Magnesium 1.9 mg/dl (1.6-2.3) 11/07/23 06:48
10/30/23 11/04/23
21:09 10:17
Ncz-A-Hsmytapfrkb Pept 8700 8500
Physical Exam
Constitutional: No acute distress
EENT: Anicteric
Cardiovascular: Rhythm & rate is regular and Pedal edema is absent
Respiratory: Respiratory effort normal and Lungs clear to auscul.
GI: Soft
Neuro/Psych: AO x 3
Data Reviewed
-
Date of Service: November 08, 2023
EKG: Tracing Personally Visualized and interpreted (a sense v paced )
Echo: Report Reviewed by me
Labs: Labs Reviewed by me
[2023-11-08 08:52] LABS: Blood Urea Nitrogen 22 mg/dl (7-17); Calcium 8.7 mg/dl (8.4-10.2); Carbon Dioxide 31 mmol/L (22-30); Chloride 91 mmol/L (98-107); Estimated Creatinine Clearance 87 ml/min; Glucose 104 mg/dl (70-99); Phosphorus 3.8 mg/dl (2.5-4.5); Potassium 3.9 mmol/L (3.5-5.1); Sodium 130 mmol/L (135-145); eGFR > 60.00
--- NOTE | 2023-11-08 09:07 | W.PN.HOSP.TC ---
Today's Communication/Plan
-
see bold
Assessment / Plan
Assessment / Plan
HPI: 68 y/o female with persistent AFIB on Eliquis, hx PVI 2022- repeat 02/2023, pacemaker and AVN ablation 08/2023, HFpEF, moderate MS, HTN, CVA 1988, breast cancer 2010 with hx chemo/surgery/radiation, obesity, lymphedema. Patient with recent
hospitalization and subsequent discharge 10/22/23. patient was reported to have black stools and had endoscopy and colonoscopy 10/15/2023 evidence of esophagitis. Anticoagulation was resumed. Patient did receive additional IV Lasix for treatment of
heart failure during that admission and was transition to Lasix 80 mg daily. She states she is compliant with her medications her weights have not changed.
#Acute heart failure with reduced ejection fraction
#Shortness of breath
Appreciate cardiology input, continue Lasix 80 mg IV twice daily, trend creatinine, trend daily weights
Continue spironolactone
daily weights I/O
repeat chest x-ray and BNP similar to prior
cardiology considering RHC vs pulm c/s
Refusing PT. Lives alone, WC bound
#Acute on Chronic hypoxic respiratory failure baseline 2L
Due to heart failure exacerbation possible pna
Currently on 2 L of oxygen, her baseline
Incentive spirometer
#Possible superimposed PNA
Persistent Leukocytosis
Procal elevated
Augmentin started w/ probiotic 11/03 cont
#Allergic asthma
#Chronic cough
#Suspected obstructive sleep apnea
Continue Singulair, bronchodilators
#Permanent atrial fibrillation as per cardio
Status post AV chris ablation with pacemaker
Continue Eliquis
#Esophagitis
Continue PPI twice daily for 2 months after EGD on 10/14, then daily
Continue Carafate
#Chronic ambulatory dysfunction
She uses a wheelchair at baseline, lives alone
Will need home care upon discharge
#Chronic hypotension
Continue midodrine 10 mg twice a day
#History of stroke
Continue statin
#Morbid obesity due to excess calories
Affects all aspects of care
#History of breast cancer
Status post chemo/surgery/radiation
#Constipation
cont bowel regimen
once suppository attempted
#reports Hemorrhoid pain
Anusol suppository bedtime 7 days ordered
DVT prophylaxis�Eliquis
Full code
Total time spent to see the patient on the floor, examine the patient, review data and lab results, discuss treatment plan with patient, nursing staff around 36 minutes.
Physical Exam
General: Morbidly obese, no acute distress
HEENT: Normocephalic, Atraumatic, EOMI, MMM
Respiratory: Diminished breath sounds at the bases
Cardiac: Normal S1/S2, Regular Rate and Rhythm
GI: Soft, Nontender, Nondistended, Normal Bowel Sounds
Extremities: No Clubbing, Cyanosis, or Edema
Neuro: Nonfocal/Grossly Intact
Psych: Calm, Cooperative
Anticipated Discharge: 24 - 48 hours
Subjective/Interval History
-
Date of Service: November 08, 2023
No acute changes. Patient reports that her breathing has improved overall since admission, close to baseline. No fever, no vomiting.
Objective Data
-
Labs:
Laboratory Results
11/08/23
07:52
WBC 13.1 H
Hgb 12.7
Hct 37.9
Plt Count 401 H
Sodium 130 L
Potassium 3.9
Chloride 91 L
Carbon Dioxide 31 H
BUN 22 H
Creatinine 0.7
Glucose 104 H
Calcium 8.7
Vital Signs:
Vital Signs
Temp Pulse Resp BP Pulse Ox
97.6 F 72 16 100/62 98
11/08/23 08:13 11/08/23 08:13 11/08/23 08:13 11/08/23 08:13 11/08/23 08:13
I&O
11/07/23 11/08/23 11/09/23
06:59 06:59 06:59
Intake Total 1460 / 1460 1140 / 1140
Output Total 650 / 650 240 / 240
Balance 810 / 810 900 / 900
[2023-11-08] MEDS: DESITIN MAXIMUM STRENGTH PASTE 1 APPLIC TOPICAL ×2 (10:03→20:58)
[2023-11-08] MEDS: MIRALAX PO (10:04)
[2023-11-08] MEDS: ProAmatine 10 MG PO ×2 (10:06→20:59)
[2023-11-08] MEDS: ELIQUIS 5 MG PO ×2 (10:08→20:59)
[2023-11-08] MEDS: KCL 40 MEQ PO (10:08)
[2023-11-08] MEDS: PROTONIX 40 MG PO ×2 (10:08→20:59)
[2023-11-08] MEDS: SENOKOT-S 1 TABLET PO ×2 (10:08→21:00)
[2023-11-08] MEDS: LASIX 80 MG IV ×2 (10:09→16:05)
[2023-11-08] MEDS: ALDACTONE 25 MG PO (10:09)
[2023-11-08] MEDS: AUGMENTIN 875 MG/125 MG 1 TABLET PO ×2 (10:09→20:58)
[2023-11-08] MEDS: THERAGRAN PO ×2 (10:09→10:14)
[2023-11-08] MEDS: VISBIOME 2 CAP PO (10:20)
[2023-11-08 11:15] LABS: NT-proBNP 10300 pg/ml
--- NOTE | 2023-11-08 15:00 | VNURNOTE ---
[facility] liaisons met with patient at bedside. She confirmed she would like to resume [facility] service. Private caregiver list provided and discussed. Patient is unsure if she can afford. Will have [employer] follow up once discharged. Resumption referral
completed in [facility].
[2023-11-08 15:25] VITALS: BP 128/73; PULSE 72; O2SAT 95
[2023-11-08 16:01] VITALS: BP 107/68; BP 128/73; PULSE 72; O2SAT 95
[2023-11-08] MEDS: ANUSOL HC 25 MG RECTAL (21:00)
[2023-11-08] MEDS: CRESTOR 20 MG PO (21:00)
[2023-11-08] MEDS: MUCINEX 600 MG PO (21:00)
[2023-11-08] MEDS: SINGULAIR 10 MG PO (21:00)
[2023-11-08 23:56] VITALS: BP 105/63
[2023-11-09] MEDS: CARAFATE 1 GRAM PO ×2 (05:52→17:42)
[2023-11-09 06:00] VITALS: BMI 44.2
[2023-11-09 07:00] VITALS: BP 141/74
[2023-11-09 07:10] LABS: Hematocrit 40.2 % (37.0-47.0); Hemoglobin 12.8 g/dL (12.0-16.0); Mean Corp Hgb Conc. 31.8 g/dL (33.0-37.0); Mean Corpuscular Hgb 29.9 pg (27.0-31.0); Mean Corpuscular Volume 93.9 fL (81.0-99.0); Mean Platelet Volume 10.2 fL (7.4-10.4); Platelet Count 390 10^3/uL (130-400); Red Blood Cell Count 4.28 10^6/uL (4.20-5.40); White Blood Cell Count 12.6 10^3/uL (4.8-10.8)
[2023-11-09] MEDS: ADVAIR HFA 115/21 MCG INHALER 2 PUFF INH ×2 (07:32→19:16)
[2023-11-09 07:33] LABS: Blood Urea Nitrogen 22 mg/dl (7-17); Calcium 8.7 mg/dl (8.4-10.2); Carbon Dioxide 29 mmol/L (22-30); Chloride 93 mmol/L (98-107); Estimated Creatinine Clearance 75 ml/min; Glucose 119 mg/dl (70-99); Phosphorus 3.6 mg/dl (2.5-4.5); Sodium 129 mmol/L (135-145); eGFR > 60.00
[2023-11-09] MEDS: PULMICORT INH (07:45)
[2023-11-09] MEDS: AUGMENTIN 875 MG/125 MG 1 TABLET PO ×2 (08:23→21:33)
[2023-11-09] MEDS: KCL 40 MEQ PO (08:23)
[2023-11-09] MEDS: VISBIOME 2 CAP PO (08:23)
[2023-11-09] MEDS: SENOKOT-S 1 TABLET PO ×2 (08:23→21:35)
[2023-11-09] MEDS: THERAGRAN 1 TABLET PO (08:24)
[2023-11-09] MEDS: LASIX 80 MG IV ×2 (08:24→17:42)
[2023-11-09] MEDS: MIRALAX 17 GRAMS PO (08:24)
[2023-11-09] MEDS: ELIQUIS 5 MG PO ×2 (08:24→21:33)
[2023-11-09] MEDS: ProAmatine PO (08:24)
[2023-11-09] MEDS: ALDACTONE 25 MG PO (08:24)
[2023-11-09] MEDS: DESITIN MAXIMUM STRENGTH PASTE 1 APPLIC TOPICAL ×2 (08:25→21:33)
[2023-11-09] MEDS: PROTONIX 40 MG PO ×2 (08:25→21:34)
--- NOTE | 2023-11-09 09:05 | W.PN.HOSP.TC ---
Addendum entered and electronically signed by Grady Hawthorne MD 11/09/23 16:08:
#Hyponatremia
Sodium downtrending, 129 today, despite fluid restriction and IV Lasix
Check TSH, cortisol, urine osmolality/sodium
Original Note:
Today's Communication/Plan
-
see bold
Assessment / Plan
Assessment / Plan
HPI: 68 y/o female with persistent AFIB on Eliquis, hx PVI 2022- repeat 02/2023, pacemaker and AVN ablation 08/2023, HFpEF, moderate MS, HTN, CVA 1988, breast cancer 2010 with hx chemo/surgery/radiation, obesity, lymphedema. Patient with recent
hospitalization and subsequent discharge 10/22/23. patient was reported to have black stools and had endoscopy and colonoscopy 10/15/2023 evidence of esophagitis. Anticoagulation was resumed. Patient did receive additional IV Lasix for treatment of
heart failure during that admission and was transition to Lasix 80 mg daily. She states she is compliant with her medications her weights have not changed.
#Acute heart failure with reduced ejection fraction
#Shortness of breath
Appreciate cardiology input, continue Lasix 80 mg IV twice daily, trend creatinine, trend daily weights
Continue spironolactone, daily weights I/O
repeat chest x-ray and BNP similar to prior
Cardiology considering RHC vs pulm c/s
Refusing PT. Lives alone, WC bound
#Acute on Chronic hypoxic respiratory failure baseline 2L
Due to heart failure exacerbation possible pna
Currently on 2 L of oxygen, her baseline
Incentive spirometer
#Possible superimposed PNA
Persistent Leukocytosis
Procal elevated
Augmentin started w/ probiotic 11/03 continue for 7 days
#Allergic asthma
#Chronic cough
#Suspected obstructive sleep apnea
Continue Singulair, bronchodilators
#Permanent atrial fibrillation as per cardio
Status post AV chris ablation with pacemaker
Continue Eliquis
#Esophagitis
Continue PPI twice daily for 2 months after EGD on 10/14, then daily
Continue Carafate
#Chronic ambulatory dysfunction
She uses a wheelchair at baseline, lives alone
Will need home care upon discharge
#Chronic hypotension
Continue midodrine 10 mg twice a day
#History of stroke
Continue statin
#Morbid obesity due to excess calories
Affects all aspects of care
#History of breast cancer
Status post chemo/surgery/radiation
#Constipation
cont bowel regimen
once suppository attempted
#reports Hemorrhoid pain
Anusol suppository bedtime 7 days ordered
DVT prophylaxis�Eliquis
Full code
Total time spent to see the patient on the floor, examine the patient, review data and lab results, discuss treatment plan with patient, nursing staff around 35 minutes.
Physical Exam
General: Morbidly obese, no acute distress
HEENT: Normocephalic, Atraumatic, EOMI, MMM
Respiratory: Diminished breath sounds at the bases
Cardiac: Normal S1/S2, Regular Rate and Rhythm
GI: Soft, Nontender, Nondistended, Normal Bowel Sounds
Extremities: No Clubbing, Cyanosis, or Edema
Neuro: Nonfocal/Grossly Intact
Psych: Calm, Cooperative
Anticipated Discharge: 24 - 48 hours
Subjective/Interval History
-
Date of Service: November 09, 2023
Patient reports her shortness of breath is at baseline. No fever, no vomiting.
Objective Data
-
Labs:
Laboratory Results
11/09/23
06:45
WBC 12.6 H
Hgb 12.8
Hct 40.2
Plt Count 390
Sodium 129 L
Potassium 4.0
Chloride 93 L
Carbon Dioxide 29
BUN 22 H
Creatinine 0.8
Glucose 119 H
Calcium 8.7
Vital Signs:
Vital Signs
Temp Pulse Resp BP Pulse Ox
97.4 F 74 16 141/74 95
11/09/23 07:00 11/09/23 07:33 11/09/23 07:33 11/09/23 07:00 11/09/23 07:33
I&O
11/08/23 11/09/23 11/10/23
06:59 06:59 06:59
Intake Total 1140 / 1140 900 / 900
Output Total 240 / 240 850 / 850
Balance 900 / 900 50 / 50
[2023-11-09 15:00] VITALS: BP 112/69
--- NOTE | 2023-11-09 16:01 | W.PN.CD ---
Today's Communication / Plan
-
cont IV lasix
RHC tomorrow
Impression / Plan
-
Dyspnea
- CXR c/w heart failure, and no significant improvement on yesterday
- May have additional contributors
HFmidrangeEF, acute on chronic, NICM
-no CAD on cath 06/2022
-echo 11/01/23: EF 45%, moderate MS, mild/moderate
- weight is down to 106 kg: this is her lowest recorded weight, and we need to reset dry weight
-continue aldactone; she did not have coverage for SGLT2i
-continue lasix 80mg IV bid, with close monitoring of labs and tele
-RHC on 11/09 to guide diuresis
Afib, ATach, permanent
- Treated with AV node ablation/pacemaker
- Anticoagulated with Eliquis 5mg bid
- [id number] 6 (age1, HF, HTN, female, hx CVA)
Hypotension
-improved on midodrine
Obesity, morbid
Data
Left atrial Pressure: 09/22/22 (PVI), weight 136.5 kg
Pre-Procedure: Mean LA pressure was 17mmHg
Post-Procedure: Mean LA pressure was 21mmHg
Post-Procedure: Mean RA pressure was 16mmHg
Cath 06/23/22, weight 149 kg
-LVEDP 24, PCW 42, RA 21, MV mean gradient 11, MVA 1.2 cm2
Subjective:
SOB 'a little better'
Physical Exam
Vital Signs/Labs
Vital Signs
Temp Pulse Resp BP Pulse Ox
97.5 F 72 18 112/69 97
11/09/23 15:00 11/09/23 15:00 11/09/23 15:00 11/09/23 15:00 11/09/23 15:00
11/08/23 11/09/2324
06:59 06:59 06:59
Actual Weight 108.976 kg 106.141 kg
11/09/23 06:45
11/09/23 06:45
Magnesium 2.0 mg/dl (1.6-2.3) 11/09/23 06:45
10/30/23 11/04/23 11/08/23
21:09 10:17 07:52
Afa-T-Ffqiftvlxqy Pept 8700 [id number]
Physical Exam
Constitutional: No acute distress and Comfortable
EENT: Moist mucous membranes
Cardiovascular: Rhythm & rate is regular, Pedal edema is absent, JVD present and Systolic murmur present
Respiratory: Respiratory effort normal and Lungs clear to auscul.
GI: Soft and Distention absent
Neuro/Psych: AO x 3
Data Reviewed
-
Date of Service: November 09, 2023
EKG: Other (Tele: ordered)
Labs: Labs Reviewed by me
[2023-11-09 17:02] LABS: Osmolality Serum 277 mOsm/kg (275-300)
[2023-11-09] MEDS: PULMICORT 0.5 MG INH (19:17)
[2023-11-09 20:35] VITALS: BP 105/56
[2023-11-09 21:01] LABS: Osmolality Urine 870 mOsm/kg (300-900)
[2023-11-09 21:09] LABS: Urine Sodium < 5 mmol/L (30-90)
[2023-11-09] MEDS: CRESTOR 20 MG PO (21:34)
[2023-11-09] MEDS: SINGULAIR 10 MG PO (21:34)
[2023-11-09] MEDS: ProAmatine 10 MG PO (21:34)
[2023-11-09] MEDS: MUCINEX 600 MG PO (21:34)
[2023-11-09] MEDS: ANUSOL HC 25 MG RECTAL (21:35)
[2023-11-09 23:00] VITALS: BP 114/69
[2023-11-10] VITALS (7 sets, daily range): BP systolic 112–120; BP diastolic 59–83; BMI 45.3
[2023-11-10] MEDS: MELATONIN 5 MG PO (01:09)
[2023-11-10] MEDS: CARAFATE 1 GRAM PO ×2 (06:10→17:04)
[2023-11-10 07:16] LABS: Glucose - Point of Care 113 mg/dl (70-99)
--- NOTE | 2023-11-10 08:28 | W.PN.HOSP.TC ---
Today's Communication/Plan
-
For right heart cath today
Assessment / Plan
Assessment / Plan
HPI: 68 y/o female with persistent AFIB on Eliquis, hx PVI 2022- repeat 02/2023, pacemaker and AVN ablation 08/2023, HFpEF, moderate MS, HTN, CVA 1988, breast cancer 2010 with hx chemo/surgery/radiation, obesity, lymphedema. Patient with recent
hospitalization and subsequent discharge 10/22/23. patient was reported to have black stools and had endoscopy and colonoscopy 10/15/2023 evidence of esophagitis. Anticoagulation was resumed. Patient did receive additional IV Lasix for treatment of
heart failure during that admission and was transition to Lasix 80 mg daily. She states she is compliant with her medications her weights have not changed.
#Acute heart failure with reduced ejection fraction
#Shortness of breath
Appreciate cardiology input, continue Lasix 80 mg IV twice daily, trend creatinine, trend daily weights
Continue spironolactone, daily weights I/O
repeat chest x-ray and BNP similar to prior
For right heart cath today
Refusing PT. Lives alone, WC bound
#Hyponatremia
TSH and cortisol normal
Sodium improved at 131
Continue fluid restriction, trend sodium
#Acute on Chronic hypoxic respiratory failure baseline 2L
Due to heart failure exacerbation possible pna
Currently on 2 L of oxygen, her baseline
Incentive spirometer
#Possible superimposed PNA
Persistent Leukocytosis
Procal elevated
Augmentin started w/ probiotic 11/03 continue for 7 days
#Allergic asthma
#Chronic cough
#Suspected obstructive sleep apnea
Continue Singulair, bronchodilators
#Permanent atrial fibrillation as per cardio
Status post AV chris ablation with pacemaker
Continue Eliquis
#Esophagitis
Continue PPI twice daily for 2 months after EGD on 10/14, then daily
Continue Carafate
#Chronic ambulatory dysfunction
She uses a wheelchair at baseline, lives alone
Will need home care upon discharge
#Chronic hypotension
Continue midodrine 10 mg twice a day
#History of stroke
Continue statin
#Morbid obesity due to excess calories
Affects all aspects of care
#History of breast cancer
Status post chemo/surgery/radiation
#Constipation
cont bowel regimen
once suppository attempted
#reports Hemorrhoid pain
Anusol suppository bedtime 7 days ordered
DVT prophylaxis�Eliquis
Full code
Total time spent to see the patient on the floor, examine the patient, review data and lab results, discuss treatment plan with patient, nursing staff around 36 minutes.
Physical Exam
General: Morbidly obese, no acute distress
HEENT: Normocephalic, Atraumatic, EOMI, MMM
Respiratory: Diminished breath sounds at the bases
Cardiac: Normal S1/S2, Regular Rate and Rhythm
GI: Soft, Nontender, Nondistended, Normal Bowel Sounds
Extremities: No Clubbing, Cyanosis, or Edema
Neuro: Nonfocal/Grossly Intact
Psych: Calm, Cooperative
Anticipated Discharge: 24 - 48 hours
Subjective/Interval History
-
Date of Service: November 09, 2023
Patient states her shortness of breath is at baseline. No fever, no vomiting.
Objective Data
-
Labs:
Laboratory Results
11/09/23
06:45
WBC 12.6 H
Hgb 12.8
Hct 40.2
Plt Count 390
Sodium 129 L
Potassium 4.0
Chloride 93 L
Carbon Dioxide 29
BUN 22 H
Creatinine 0.8
Glucose 119 H
Calcium 8.7
Vital Signs:
Vital Signs
Temp Pulse Resp BP Pulse Ox
97.5 F 72 18 112/69 97
11/09/23 15:00 11/09/23 15:00 11/09/23 15:00 11/09/23 15:00 11/09/23 15:00
I&O
11/08/23 11/09/23 11/10/23
06:59 06:59 06:59
Intake Total 1140 / 1140 900 / 900
Output Total 240 / 240 850 / 850
Balance 900 / 900 50 / 50
[2023-11-10] MEDS: ADVAIR HFA 115/21 MCG INHALER 2 PUFF INH ×2 (08:31→20:27)
[2023-11-10] MEDS: PULMICORT 0.5 MG INH ×2 (08:31→20:27)
[2023-11-10] MEDS: ALDACTONE 25 MG PO (08:47)
[2023-11-10] MEDS: ProAmatine 10 MG PO ×2 (08:47→20:47)
[2023-11-10] MEDS: MIRALAX 17 GRAMS PO (08:47)
[2023-11-10] MEDS: KCL 40 MEQ PO (08:47)
[2023-11-10] MEDS: THERAGRAN 1 TABLET PO (08:47)
[2023-11-10] MEDS: ELIQUIS 5 MG PO ×2 (08:47→20:40)
[2023-11-10] MEDS: VISBIOME 2 CAP PO (08:47)
[2023-11-10] MEDS: PROTONIX 40 MG PO ×2 (08:47→20:40)
[2023-11-10] MEDS: SENOKOT-S 1 TABLET PO ×2 (08:47→20:40)
[2023-11-10] MEDS: DESITIN MAXIMUM STRENGTH PASTE 1 APPLIC TOPICAL ×2 (08:48→20:40)
[2023-11-10] MEDS: AUGMENTIN 875 MG/125 MG 1 TABLET PO ×2 (08:48→20:39)
[2023-11-10] MEDS: LASIX 80 MG IV ×2 (08:48→17:04)
[2023-11-10 08:51] LABS: Hematocrit 38.3 % (37.0-47.0); Hemoglobin 12.7 g/dL (12.0-16.0); Mean Corp Hgb Conc. 33.2 g/dL (33.0-37.0); Mean Corpuscular Hgb 30.4 pg (27.0-31.0); Mean Corpuscular Volume 91.6 fL (81.0-99.0); Mean Platelet Volume 10.1 fL (7.4-10.4); Platelet Count 385 10^3/uL (130-400); Red Blood Cell Count 4.18 10^6/uL (4.20-5.40); Red Cell Dist. Width 16.1 % (11.5-14.5); White Blood Cell Count 11.5 10^3/uL (4.8-10.8)
[2023-11-10 09:55] LABS: Blood Urea Nitrogen 20 mg/dl (7-17); Calcium 8.8 mg/dl (8.4-10.2); Carbon Dioxide 29 mmol/L (22-30); Chloride 92 mmol/L (98-107); Estimated Creatinine Clearance 86 ml/min; Glucose 104 mg/dl (70-99); Magnesium 2.1 mg/dl (1.6-2.3); Phosphorus 3.7 mg/dl (2.5-4.5); Sodium 131 mmol/L (135-145); eGFR > 60.00
[2023-11-10 10:24] LABS: Cortisol, Random 12.1 ug/dl; TSH Reflex To Free T4 2.33 uIU/ml (0.47-4.68)
--- NOTE | 2023-11-10 11:28 | W.PN.CD ---
Today's Communication / Plan
-
RHC today.
Impression / Plan
-
Impression/Plan: 68 y/o female with morbid obesity, permanent atrial fibrillation/atrial tachycardia s/p AVN ablation and PPM, moderate/severe calcific mitral stenosis admitted with HFmEF.
#Dyspnea
- CXR c/w heart failure, and no significant improvement on yesterday
- May have additional contributors
#HFmEF/NICMO
-Acute on chronic.
-No CAD on cath 06/2022.
-echo 11/01/23: EF 45%, moderate MS, mild/moderate
-Weight is down; this is her lowest recorded weight, and we need to reset dry weight.
-Continue spironolactone; she does not have coverage for SGLT2i.
-Continue furosemide 80mg IV bid, with close monitoring of labs and tele.
-RHC today to guide diuresis.
#Afib, ATach, permanent
-Chronic, stable.
-S/P AV node ablation/pacemaker
-[id number] 6 (age1, HF, HTN, female, hx CVA).
-Continue apixaban for therapeutic anticoagulation.
#Hypotension
-New diagnosis.
-Improved on midodrine.
#Obesity, morbid
-Chronic, stable.
Subjective/Interval History:
Weight up 2.4 kg from yesterday but down 0.4 kg from two days ago, questioning the validity of yesterday's weight.
She remains on 2LNC.
DATA:
TTE, 11/01/2023:
CONCLUSIONS
Mildly reduced left ventricular systolic function.
Hypokinesis of the septal wall, LV ejection fraction is 45% by Scherer's
method of discs.
Enlarged right ventricular size with reduced systolic function.
Moderate mitral stenosis.
Mild to moderate aortic stenosis.
Compared to previous echo images 07/26/23, the ejection fraction is similar to
slightly worse with more significant septal hypokinesis.
Left atrial Pressure: 09/22/22 (PVI), weight 136.5 kg
Pre-Procedure: Mean LA pressure was 17mmHg
Post-Procedure: Mean LA pressure was 21mmHg
Post-Procedure: Mean RA pressure was 16mmHg
Cath 06/23/22:
CONCLUSIONS:
1. Left dominant circulation with no coronary artery disease.
2. Probably severe mitral valve stenosis (mean gradient 11.1 mmHg, mitral valve area 1.43).
3. Severely elevated filling pressures (LVEDP = 24 mmHg, PCWP = 42 mmHg at 147.0 kg).
4. At least moderate pulmonary hypertension, WHO group 2.
5. Concordance on simultaneous LV/PA and LV/RV tracings.
Physical Exam
Vital Signs/Labs
Vital Signs
Temp Pulse Resp BP Pulse Ox
36.3 C 71 16 113/71 98
11/10/23 11:17 11/10/23 11:17 11/10/23 11:17 11/10/23 11:17 11/10/23 11:17
11/08/23 11/09/23 11/10/23
11:59 11:59 11:59
Actual Weight 108.976 kg 106.141 kg 108.579 kg
11/10/23 07:31
11/10/23 07:31
Magnesium 2.1 mg/dl (1.6-2.3) 11/10/23 07:31
10/30/23 11/04/23 11/08/23
21:09 10:17 07:52
Uwq-O-Lbocwmaegyw Pept 8700 [id number]
Physical Exam
Constitutional: No acute distress and Comfortable
EENT: Anicteric and Moist mucous membranes
Cardiovascular: Rhythm & rate is regular, Pedal edema is absent, JVD pressure is normal, S1S2 is normal and Murmur/rub/gallop absent
Respiratory: Respiratory effort normal and Other (Decreased throughout.)
GI: Soft, Distention absent, Flat, Non tender and Normal bowel sounds
Neuro/Psych: AO x 3
Data Reviewed
-
Date of Service: November 10, 2023
Medical Decision Making: Reviewed Test Results, Independent Historian Assessment, Test Interpretation and Review of Case with other Provider
EKG: Tracing Personally Visualized and interpreted and Report Reviewed by me
Echo: Report Reviewed by me
X-Ray/CT/US/MRI/NUC/PET: Image Personally Visualized and interpreted and Report Reviewed by me
Medical Tests (PFT, Pathology etc): Image Personally Visualized and interpreted and Report Reviewed by me
Labs: Labs Reviewed by me
--- NOTE | 2023-11-10 12:44 | ITS.CL.CATH ---
[employer] Project Manager - Catheterization
Cardiac Catheterization
Procedure Report:
RIGHT HEART CATHETERIZATION
Date of Procedure: 11/10/2023
Referring: Ladarius Montes M.D., Ph.D.
INDICATION: Mitral stenosis, heart failure with midrange ejection fraction, unclear dry weight.
ACCESS:
5 [place] antecubital fossa.
CATHETERS:
1. 5 [place] balloon wedge.
2. 5 [place] multipurpose.
PROCEDURE:
An IV was placed by the nursing staff in the right antecubital fossa. The patient was prepped and draped in standard sterile fashion, including copious cleaning of the IV and IV site. The area around the IV was anesthetized with 1% lidocaine. We
attempted to cannulate the IV using the sheath wire, but this wire kept deviating towards a lateral branch and was not an acceptable course for the sheath. Ultimately, the IV site was abandoned. Using ultrasound guidance, the right brachial vein
was identified. The area for access was reanesthetized and the vein was accessed using a modified Seldinger technique. A 5 [place] sheath was inserted basilic vein. A 5 [place] balloon wedge catheter was advanced through the sheath into the superior
vena cava. An SVC oxygen saturation was drawn. The balloon wedge catheter was advanced into the pulmonary artery and a pulmonary artery oxygen saturation was drawn. Arterial oxygen saturation was assumed from pulse oximetry. A oxygen saturation
differential >8% was observed between the SVC and the pulmonary artery. A formal sat run was performed as part of the right heart catheterization. In order to collect an IVC sat for an appropriate mixed venous saturation, we did have to use a
multipurpose catheter and a BMW coronary wire to advance into the IVC. Cardiac output was calculated using the Caryl equation. The PA, wedge, RV and RA pressures were measured on pullback. Of note, the pulmonary capillary wedge pressure was
difficult to distinguish between the pulmonary artery pressure given the height of its V waves. The only discriminating factor was the presence of a dicrotic notch in the pulmonary artery which was absent on wedge pressure. The balloon wedge
catheter was removed. The 5 [place]anian sheath was removed and manual pressure was held for hemostasis.
Weight (kg): 108.6
PA (s/d/x mmHg): 73/40/51
PCWP (a/v/x mmHg): 48/61/36
RV (s/x mmHg): 70/13
RA (a/v/x mmHg): 19//14
SVC SvO2 (%): 52.1
IVC SvO2 (%): 56.8
RA SvO2 (%): 68.9
RV SvO2 (%): 68.8
PA SvO2 (%): 65.8
MVO2 (%): 53.28
SaO2 (%): 98.0 (assumed)
Hbg (g/dL): 12.5
Qp:Qs: 1.39
Caryl
CO (liters/minute): 2.52
CI (liters/minute/m2): 1.24
Thermodilution
CO (liters/minute): Not performed.
CI (liters/minute/m2): Not performed.
TPG (mmHg): 15
PVR (Multani Units): 5.95
AVO2 Difference (Volume %): 8.95
Radiation (mGy): 145.19
DAP (cm2.Gy): 18.6646
Fluoroscopy time (minutes): 9.4
CONCLUSION:
1. Severely elevated filling pressures (PCWP = 36 mmHg at 108.6 kg).
2. Severe precapillary and postcapillary pulmonary hypertension (mean PA pressure 51 mmHg, PCWP = 36 mmHg, PVR = 5.95 Multani units).
3. Significant left to right shunt at the level of the atrium (QP:QS = 1.39), likely residual ASD from prior EP procedure.
4. Severely depressed cardiac index (1.24 L/min/m�).
5. Previously documented moderate to severe calcific mitral valve stenosis.
RECOMMENDATIONS:
1. Expectant management after right heart catheterization via right antecubital approach.
2. Thoughtful consideration of this complex hemodynamic picture including moderate to severe mitral valve stenosis and left to right shunt at the level of the atrium.
3. Continue diuresis.
4. We may be underestimating the severity of her mitral valve stenosis given the presence of the residual left to right shunt acting as a pop-off valve for severely elevated left atrial pressures.
Copy to: Ladarius Montes M.D., Ph.D., Qiana Rodriguez M.D.
Mynor Amador D.O., FACC, FACP
--- NOTE | 2023-11-10 12:53 | PTCARENOTE ---
tried to obtain a blood pressure on patient after she returned from procedure, blood pressure not registering on right forearm .Left arm is limb alert, patient refused to allow me to obtain a blood pressure from her leg, patient stated'they used my
leg through the procedure and I don't want you to use my leg'. tried to explain the importance of getting the blood pressure patient still refused.
--- NOTE | 2023-11-10 13:58 | CM ---
Patient s/p cardiac catheterization.
Plan: home with [facility] when stable.
[2023-11-10] MEDS: MUCINEX 600 MG PO (20:40)
[2023-11-10] MEDS: CRESTOR 20 MG PO (20:40)
[2023-11-10] MEDS: SINGULAIR 10 MG PO (20:41)
[2023-11-11 04:01] VITALS: BP 113/75
[2023-11-11 05:22] VITALS: BMI 46.0
[2023-11-11] MEDS: CARAFATE 1 GRAM PO ×2 (05:45→17:53)
[2023-11-11 07:28] VITALS: BP 102/67
[2023-11-11] MEDS: ADVAIR HFA 115/21 MCG INHALER 2 PUFF INH ×2 (07:39→19:30)
[2023-11-11] MEDS: PULMICORT 0.5 MG INH ×2 (07:39→19:30)
[2023-11-11 07:57] LABS: Blood Urea Nitrogen 22 mg/dl (7-17); Calcium 8.9 mg/dl (8.4-10.2); Carbon Dioxide 26 mmol/L (22-30); Chloride 95 mmol/L (98-107); Estimated Creatinine Clearance 87 ml/min; Glucose 130 mg/dl (70-99); Potassium 3.9 mmol/L (3.5-5.1); Sodium 131 mmol/L (135-145); eGFR > 60.00
[2023-11-11] MEDS: PROTONIX 40 MG PO ×2 (08:24→20:22)
[2023-11-11] MEDS: MIRALAX 17 GRAMS PO (08:24)
[2023-11-11] MEDS: ProAmatine 10 MG PO (08:25)
[2023-11-11] MEDS: SENOKOT-S 1 TABLET PO ×2 (08:26→20:22)
[2023-11-11] MEDS: LASIX 80 MG IV ×2 (08:26→17:52)
[2023-11-11] MEDS: KCL 40 MEQ PO (08:26)
[2023-11-11] MEDS: VISBIOME 2 CAP PO (08:26)
[2023-11-11] MEDS: ELIQUIS 5 MG PO ×2 (08:26→20:22)
[2023-11-11] MEDS: DESITIN MAXIMUM STRENGTH PASTE 1 APPLIC TOPICAL ×2 (08:27→20:21)
[2023-11-11] MEDS: THERAGRAN PO (08:28)
[2023-11-11] MEDS: ALDACTONE 25 MG PO (08:29)
--- NOTE | 2023-11-11 08:49 | W.PN.HOSP.TC ---
Today's Communication/Plan
-
see bold
Assessment / Plan
Assessment / Plan
HPI: 68 y/o female with persistent AFIB on Eliquis, hx PVI 2022- repeat 02/2023, pacemaker and AVN ablation 08/2023, HFpEF, moderate MS, HTN, CVA 1988, breast cancer 2010 with hx chemo/surgery/radiation, obesity, lymphedema. Patient with recent
hospitalization and subsequent discharge 10/22/23. patient was reported to have black stools and had endoscopy and colonoscopy 10/15/2023 evidence of esophagitis. Anticoagulation was resumed. Patient did receive additional IV Lasix for treatment of
heart failure during that admission and was transition to Lasix 80 mg daily. She states she is compliant with her medications her weights have not changed.
#Acute heart failure with reduced ejection fraction
#Shortness of breath
Appreciate cardiology input, 11/09 [facility] shows severely elevated filling pressures
Continue Lasix 80 mg IV twice daily, trend creatinine, trend daily weights
Continue spironolactone, daily weights I/O
Refusing PT. Lives alone, WC bound
#Hyponatremia
TSH and cortisol normal
Sodium improved at 131
Continue fluid restriction, trend sodium
#Acute on Chronic hypoxic respiratory failure baseline 2L
Due to heart failure exacerbation possible pna
Currently on 2 L of oxygen, her baseline
Incentive spirometer
#Possible superimposed PNA
Persistent Leukocytosis
Procal elevated
Status post 7 days of Augmentin
#Allergic asthma
#Chronic cough
#Suspected obstructive sleep apnea
Continue Singulair, bronchodilators
#Permanent atrial fibrillation as per cardio
Status post AV chris ablation with pacemaker
Continue Eliquis
#Esophagitis
Continue PPI twice daily for 2 months after EGD on 10/14, then daily
Continue Carafate
#Chronic ambulatory dysfunction
She uses a wheelchair at baseline, lives alone
Will need home care upon discharge
#Chronic hypotension
Continue midodrine 10 mg twice a day
#History of stroke
Continue statin
#Morbid obesity due to excess calories
Affects all aspects of care
#History of breast cancer
Status post chemo/surgery/radiation
#Constipation
cont bowel regimen
once suppository attempted
#reports Hemorrhoid pain
Anusol suppository bedtime 7 days ordered
DVT prophylaxis�Eliquis
Full code
Total time spent to see the patient on the floor, examine the patient, review data and lab results, discuss treatment plan with patient, nursing staff around 35 minutes.
Physical Exam
General: Morbidly obese, no acute distress
HEENT: Normocephalic, Atraumatic, EOMI, MMM
Respiratory: Diminished breath sounds at the bases
Cardiac: Normal S1/S2, Regular Rate and Rhythm
GI: Soft, Nontender, Nondistended, Normal Bowel Sounds
Extremities: No Clubbing, Cyanosis, or Edema
Neuro: Nonfocal/Grossly Intact
Psych: Calm, Cooperative
Anticipated Discharge: 24 - 48 hours
Subjective/Interval History
-
Date of Service: November 11, 2023
Patient has baseline shortness of breath. No fever, no vomiting.
Objective Data
-
Labs:
Laboratory Results
11/11/23
07:13
Sodium 131 L
Potassium 3.9
Chloride 95 L
Carbon Dioxide 26
BUN 22 H
Creatinine 0.7
Glucose 130 H
Calcium 8.9
Vital Signs:
Vital Signs
Temp Pulse Resp BP Pulse Ox
98.6 F 70 14 102/67 92
11/11/23 07:28 11/11/23 07:42 11/11/23 07:42 11/11/23 07:28 11/11/23 07:42
I&O
11/10/23 11/11/23 11/12/23
06:59 06:59 06:59
Intake Total 1140 / 1140 660 / 660
Balance 1140 / 1140 660 / 660
--- NOTE | 2023-11-11 11:14 | W.PN.CD ---
Today's Communication / Plan
-
-Right heart catheterization yesterday revealed a significantly elevated PCWP of 36 mmHg.
-Continue Lasix 80 mg IV BID.
Impression / Plan
-
Impression/Plan: 68 y/o female with morbid obesity, permanent atrial fibrillation/atrial tachycardia s/p AVN ablation and PPM, moderate/severe calcific mitral stenosis admitted with HFmEF.
#Dyspnea
- CXR c/w heart failure, and no significant improvement on yesterday
- May have additional contributors
#HFmEF/NICMO
-Acute on chronic.
-No CAD on cath 06/2022.
-echo 11/01/23: EF 45%, moderate MS, mild/moderate
-Weight is down; this is her lowest recorded weight, and we need to reset dry weight.
-Continue spironolactone; she does not have coverage for SGLT2i.
-Right heart catheterization yesterday revealed a significantly elevated PCWP of 36 mmHg.
-Continue Lasix 80 mg IV BID.
#Afib, ATach, permanent
-Chronic, stable.
-S/P AV node ablation/pacemaker; residual ASD from EP procedure noted on [facility] yesterday.
-[id number] 6 (age1, HF, HTN, female, hx CVA).
-Continue apixaban for therapeutic anticoagulation.
#Hypotension
-New diagnosis.
-Improved on midodrine.
#Obesity, morbid
-Chronic, stable.
Subjective/Interval History:
No major events overnight. Shortness of breath improved.
DATA:
TTE, 11/01/2023:
CONCLUSIONS
Mildly reduced left ventricular systolic function.
Hypokinesis of the septal wall, LV ejection fraction is 45% by Scherer's
method of discs.
Enlarged right ventricular size with reduced systolic function.
Moderate mitral stenosis.
Mild to moderate aortic stenosis.
Compared to previous echo images 07/26/23, the ejection fraction is similar to
slightly worse with more significant septal hypokinesis.
Left atrial Pressure: 09/22/22 (PVI), weight 136.5 kg
Pre-Procedure: Mean LA pressure was 17mmHg
Post-Procedure: Mean LA pressure was 21mmHg
Post-Procedure: Mean RA pressure was 16mmHg
Cath 06/23/22:
CONCLUSIONS:
1. Left dominant circulation with no coronary artery disease.
2. Probably severe mitral valve stenosis (mean gradient 11.1 mmHg, mitral valve area 1.43).
3. Severely elevated filling pressures (LVEDP = 24 mmHg, PCWP = 42 mmHg at 147.0 kg).
4. At least moderate pulmonary hypertension, WHO group 2.
5. Concordance on simultaneous LV/PA and LV/RV tracings.
Physical Exam
Vital Signs/Labs
Vital Signs
Temp Pulse Resp BP Pulse Ox
98.6 F 70 14 102/67 97
11/11/23 07:28 11/11/23 07:42 11/11/23 07:42 11/11/23 07:28 11/11/23 08:00
11/10/23 11/11/23 11/12/23
06:59 06:59 06:59
Actual Weight 108.579 kg 110.393 kg
11/10/23 07:31
11/11/23 07:13
Magnesium 2.1 mg/dl (1.6-2.3) 11/10/23 07:31
10/30/23 11/04/23 11/08/23
21:09 10:17 07:52
Dov-B-Zodfarcpimm Pept [id number] [id number]
Physical Exam
Constitutional: No acute distress and Comfortable
Cardiovascular: Rhythm & rate is regular, Pedal edema is absent, Systolic murmur present (05/15) and S1S2 is normal
Respiratory: Respiratory effort normal and Crackles Present
GI: Soft
Neuro/Psych: AO x 3
Other: Skin (Warm, dry, intact)
Data Reviewed
-
Date of Service: November 11, 2023
EKG: Tracing Personally Visualized and interpreted (Telemetry: Atrial fibrillation, V paced)
Medical Tests (PFT, Pathology etc): Report Reviewed by me ([facility]: PCWP 36)
Labs: Labs Reviewed by me
[2023-11-11 11:52] VITALS: BP 117/72
[2023-11-11 15:19] VITALS: BP 116/75
[2023-11-11 20:04] VITALS: BP 150/95
[2023-11-11] MEDS: MUCINEX 600 MG PO (20:25)
[2023-11-11] MEDS: SINGULAIR 10 MG PO (20:25)
[2023-11-11] MEDS: ProAmatine PO (20:25)
[2023-11-11] MEDS: CRESTOR 20 MG PO (20:25)
[2023-11-11 23:27] VITALS: BP 103/63
[2023-11-12] VITALS (8 sets, daily range): BP systolic 112–146; BP diastolic 68–86; PULSE 78; BMI 45.8
[2023-11-12] MEDS: TYLENOL 650 MG PO (00:39)
[2023-11-12] MEDS: CARAFATE 1 GRAM PO ×2 (05:35→15:58)
[2023-11-12] MEDS: ADVAIR HFA 115/21 MCG INHALER 2 PUFF INH ×2 (08:16→21:29)
[2023-11-12] MEDS: MIRALAX 17 GRAMS PO (08:24)
[2023-11-12] MEDS: SENOKOT-S 1 TABLET PO ×2 (08:25→20:13)
[2023-11-12] MEDS: LASIX 80 MG IV ×2 (08:25→15:58)
[2023-11-12] MEDS: ProAmatine 10 MG PO ×2 (08:25→20:13)
[2023-11-12] MEDS: VISBIOME 2 CAP PO (08:27)
[2023-11-12] MEDS: ALDACTONE 25 MG PO (08:27)
[2023-11-12] MEDS: PROTONIX 40 MG PO ×2 (08:27→20:13)
[2023-11-12] MEDS: DESITIN MAXIMUM STRENGTH PASTE 1 APPLIC TOPICAL ×2 (08:27→20:12)
[2023-11-12] MEDS: ELIQUIS 5 MG PO ×2 (08:27→20:12)
[2023-11-12] MEDS: THERAGRAN PO (08:28)
[2023-11-12] MEDS: KCL 40 MEQ PO ×3 (08:28→20:15)
--- NOTE | 2023-11-12 08:39 | W.PN.HOSP.TC ---
Today's Communication/Plan
-
see bold
Assessment / Plan
Assessment / Plan
HPI: 68 y/o female with persistent AFIB on Eliquis, hx PVI 2022- repeat 02/2023, pacemaker and AVN ablation 08/2023, HFpEF, moderate MS, HTN, CVA 1988, breast cancer 2010 with hx chemo/surgery/radiation, obesity, lymphedema. Patient with recent
hospitalization and subsequent discharge 10/22/23. patient was reported to have black stools and had endoscopy and colonoscopy 10/15/2023 evidence of esophagitis. Anticoagulation was resumed. Patient did receive additional IV Lasix for treatment of
heart failure during that admission and was transition to Lasix 80 mg daily. She states she is compliant with her medications her weights have not changed.
#Acute heart failure with reduced ejection fraction
#Shortness of breath
Appreciate cardiology input, 11/09 RHC shows severely elevated filling pressures
Continue Lasix 80 mg IV twice daily, trend creatinine, trend daily weights. Cardiology ordered metolazone x 1 on 11/11
Continue spironolactone, daily weights I/O
PT rec SNF vs home PT. Lives alone, WC bound
#Hyponatremia
TSH and cortisol normal
Sodium improved at 131
Continue fluid restriction, trend sodium
#Acute on Chronic hypoxic respiratory failure baseline 2L
Due to heart failure exacerbation possible pna
Currently on 2 L of oxygen, her baseline
Incentive spirometer
#Possible superimposed PNA
Persistent Leukocytosis
Procal elevated
Status post 7 days of Augmentin
#Allergic asthma
#Chronic cough
#Suspected obstructive sleep apnea
Continue Singulair, bronchodilators
#Permanent atrial fibrillation as per cardio
Status post AV chris ablation with pacemaker
Continue Eliquis
#Esophagitis
Continue PPI twice daily for 2 months after EGD on 10/14, then daily
Continue Carafate
#Chronic ambulatory dysfunction
She uses a wheelchair at baseline, lives alone
Will need home care upon discharge
#Chronic hypotension
Continue midodrine 10 mg twice a day
#History of stroke
Continue statin
#Morbid obesity due to excess calories
Affects all aspects of care
#History of breast cancer
Status post chemo/surgery/radiation
#Constipation
cont bowel regimen
once suppository attempted
#reports Hemorrhoid pain
Anusol suppository bedtime 7 days ordered
DVT prophylaxis�Eliquis
Full code
Total time spent to see the patient on the floor, examine the patient, review data and lab results, discuss treatment plan with patient, nursing staff around 36 minutes.
Physical Exam
General: Morbidly obese, no acute distress
HEENT: Normocephalic, Atraumatic, EOMI, MMM
Respiratory: Diminished breath sounds at the bases
Cardiac: Normal S1/S2, Regular Rate and Rhythm
GI: Soft, Nontender, Nondistended, Normal Bowel Sounds
Extremities: No Clubbing, Cyanosis, or Edema
Neuro: Nonfocal/Grossly Intact
Psych: Calm, Cooperative
Anticipated Discharge: 24 - 48 hours
Subjective/Interval History
-
Date of Service: November 12, 2023
Patient has chronic shortness of breath, unchanged. No fever, no vomiting.
Objective Data
-
Labs:
Laboratory Results
11/12/23
06:00
Sodium Pending
Potassium Pending
Chloride Pending
Carbon Dioxide Pending
BUN Pending
Creatinine Pending
Glucose Pending
Calcium Pending
Vital Signs:
Vital Signs
Temp Pulse Resp BP Pulse Ox
97.7 F 72 18 113/74 96
11/12/23 07:00 11/12/23 07:00 11/12/23 08:19 11/12/23 08:27 11/12/23 08:19
I&O
11/11/23 11/12/23 11/13/23
06:59 06:59 06:59
Intake Total 660 / 660 1320 / 1320
Balance 660 / 660 1320 / 1320
[2023-11-12 10:01] LABS: Blood Urea Nitrogen 22 mg/dl (7-17); Calcium 8.7 mg/dl (8.4-10.2); Carbon Dioxide 28 mmol/L (22-30); Chloride 93 mmol/L (98-107); Estimated Creatinine Clearance 87 ml/min; Glucose 183 mg/dl (70-99); Potassium 3.4 mmol/L (3.5-5.1); Sodium 131 mmol/L (135-145); eGFR > 60.00
--- NOTE | 2023-11-12 11:22 | W.PN.CD ---
Today's Communication / Plan
-
Continue Lasix 80 mg IV BID
metolazone x1 today prior to PM dose
Impression / Plan
-
Impression/Plan: 68 y/o female with morbid obesity, permanent atrial fibrillation/atrial tachycardia s/p AVN ablation and PPM, moderate/severe calcific mitral stenosis admitted with HFmEF.
#HFmEF/NICMO
-Acute on chronic. Severe, requiring monitoring of labs and tele.
-No CAD on cath 06/2022.
-echo 11/01/23: EF 45%, moderate MS, mild/moderate
-Weight is down; this is her lowest recorded weight, and we need to reset dry weight.
-Continue spironolactone; she does not have coverage for SGLT2i.
-Right heart cath 11/09 revealed a significantly elevated PCWP of 36 mmHg.
-Continue Lasix 80 mg IV BID.
-metolazone x1 today prior to PM dose
#Afib, ATach, permanent
-Chronic, stable.
-S/P AV node ablation/pacemaker; residual ASD from EP procedure noted on R[facility] yesterday.
-[id number] 6 (age1, HF, HTN, female, hx CVA).
-Continue apixaban for therapeutic anticoagulation.
#Hypotension
-New diagnosis.
-Improved on midodrine.
#Obesity, morbid
-Chronic, stable.
Subjective/Interval History:
No major events overnight.
DATA:
TTE, 11/01/2023:
CONCLUSIONS
Mildly reduced left ventricular systolic function.
Hypokinesis of the septal wall, LV ejection fraction is 45% by Scherer's
method of discs.
Enlarged right ventricular size with reduced systolic function.
Moderate mitral stenosis.
Mild to moderate aortic stenosis.
Compared to previous echo images 07/26/23, the ejection fraction is similar to
slightly worse with more significant septal hypokinesis.
Left atrial Pressure: 09/22/22 (PVI), weight 136.5 kg
Pre-Procedure: Mean LA pressure was 17mmHg
Post-Procedure: Mean LA pressure was 21mmHg
Post-Procedure: Mean RA pressure was 16mmHg
Cath 06/23/22:
CONCLUSIONS:
1. Left dominant circulation with no coronary artery disease.
2. Probably severe mitral valve stenosis (mean gradient 11.1 mmHg, mitral valve area 1.43).
3. Severely elevated filling pressures (LVEDP = 24 mmHg, PCWP = 42 mmHg at 147.0 kg).
4. At least moderate pulmonary hypertension, WHO group 2.
5. Concordance on simultaneous LV/PA and LV/RV tracings.
Physical Exam
Vital Signs/Labs
Vital Signs
Temp Pulse Resp BP Pulse Ox
97.7 F 72 18 113/74 96
11/12/23 07:00 11/12/23 07:00 11/12/23 08:19 11/12/23 08:27 11/12/23 08:19
11/11/23 11/12/23 11/13/23
06:59 06:59 06:59
Actual Weight 110.393 kg 109.911 kg
11/10/23 07:31
11/12/23 09:09
Magnesium 2.1 mg/dl (1.6-2.3) 11/10/23 07:31
10/30/23 11/04/23 11/08/23
21:09 10:17 07:52
Msj-T-Dfqvmginydm Pept [id number] [id number]
Physical Exam
Constitutional: No acute distress and Comfortable
EENT: Moist mucous membranes
Cardiovascular: Rhythm & rate is regular, Pedal edema is absent, JVD present, Systolic murmur present and Diastolic murmur present
Respiratory: Respiratory effort normal and Lungs clear to auscul.
GI: Soft, Distention absent and Flat
Neuro/Psych: AO x 3
Data Reviewed
-
Date of Service: November 12, 2023
EKG: Other (Tele: Reversal Print Inspector 70s)
Labs: Labs Reviewed by me
--- NOTE | 2023-11-12 12:37 | CM ---
Addendum entered by Keya Giordano 11/12/23 15:00:
PT recommending skilled vs home, referral to [facility].
Original Note:
Patient seen bedside.
Patient continues on IV diuresis.
patient has had [facility] in the past and will resume care post hospital.
PT/OT (P), await their recommendations.
patient interested in [facility] if recommended.
Patient has home oxygen.
Plan: home with [facility] vs skilled rehab if indicated.
[2023-11-12] MEDS: ZAROXOLYN 5 MG PO (15:58)
[2023-11-12] MEDS: CRESTOR 20 MG PO (20:13)
[2023-11-12] MEDS: MUCINEX 600 MG PO (20:14)
[2023-11-12] MEDS: SINGULAIR 10 MG PO (20:15)
[2023-11-13 03:00] VITALS: BP 112/72
[2023-11-13 06:00] VITALS: BMI 45.0
[2023-11-13] MEDS: CARAFATE 1 GRAM PO ×2 (06:12→17:09)
[2023-11-13] MEDS: ADVAIR HFA 115/21 MCG INHALER INH (07:27)
[2023-11-13 08:00] VITALS: BP 99/61
--- NOTE | 2023-11-13 08:05 | W.PN.HOSP.TC ---
Today's Communication/Plan
-
see bold
Assessment / Plan
Assessment / Plan
HPI: 68 y/o female with persistent AFIB on Eliquis, hx PVI 2022- repeat 02/2023, pacemaker and AVN ablation 08/2023, HFpEF, moderate MS, HTN, CVA 1988, breast cancer 2010 with hx chemo/surgery/radiation, obesity, lymphedema. Patient with recent
hospitalization and subsequent discharge 10/22/23. patient was reported to have black stools and had endoscopy and colonoscopy 10/15/2023 evidence of esophagitis. Anticoagulation was resumed. Patient did receive additional IV Lasix for treatment of
heart failure during that admission and was transition to Lasix 80 mg daily. She states she is compliant with her medications her weights have not changed.
#Acute heart failure with reduced ejection fraction
#Shortness of breath
Appreciate cardiology input, 11/09 RHC shows severely elevated filling pressures
Continue Lasix 80 mg IV twice daily, trend creatinine, trend daily weights. Cardiology ordered metolazone x 1 on 11/11
Continue spironolactone, daily weights I/O
PT rec SNF vs home PT. Lives alone, WC bound
#Hyponatremia
TSH and cortisol normal
Sodium improved at 131
Continue fluid restriction, trend sodium
#Acute on Chronic hypoxic respiratory failure baseline 2L
Due to heart failure exacerbation possible pna
Currently on 2 L of oxygen, her baseline
Incentive spirometer
#Mouth sores
Started Orajel 11/12
#Hypokalemia
Repleted and resolved
#Possible superimposed PNA
Persistent Leukocytosis
Procal elevated
Status post 7 days of Augmentin
#Allergic asthma
#Chronic cough
#Suspected obstructive sleep apnea
Continue Singulair, bronchodilators
#Permanent atrial fibrillation as per cardio
Status post AV chris ablation with pacemaker
Continue Eliquis
#Esophagitis
Continue PPI twice daily for 2 months after EGD on 6/7, then daily
Continue Carafate
#Chronic ambulatory dysfunction
She uses a wheelchair at baseline, lives alone
Will need home care upon discharge
#Chronic hypotension
Continue midodrine 10 mg twice a day
#History of stroke
Continue statin
#Morbid obesity due to excess calories
Affects all aspects of care
#History of breast cancer
Status post chemo/surgery/radiation
#Constipation
cont bowel regimen
once suppository attempted
#reports Hemorrhoid pain
Anusol suppository bedtime 7 days ordered
DVT prophylaxis�Eliquis
Full code
Total time spent to see the patient on the floor, examine the patient, review data and lab results, discuss treatment plan with patient, nursing staff around 38 minutes.
Physical Exam
General: Morbidly obese, no acute distress
HEENT: Normocephalic, Atraumatic, EOMI, MMM
Respiratory: Diminished breath sounds at the bases
Cardiac: Normal S1/S2, Regular Rate and Rhythm
GI: Soft, Nontender, Nondistended, Normal Bowel Sounds
Extremities: No Clubbing, Cyanosis, or Edema
Neuro: Nonfocal/Grossly Intact
Psych: Calm, Cooperative
Anticipated Discharge: 24 - 48 hours
Subjective/Interval History
-
Date of Service: November 13, 2023
Patient complains of pain from her mouth sores. No fever, no vomiting.
Objective Data
-
Labs:
Laboratory Results
11/13/23
06:00
Sodium Pending
Potassium Pending
Chloride Pending
Carbon Dioxide Pending
BUN Pending
Creatinine Pending
Glucose Pending
Calcium Pending
Vital Signs:
Vital Signs
Temp Pulse Resp BP Pulse Ox
98.1 F 71 19 112/72 97
11/13/23 03:00 11/13/23 03:00 11/13/23 03:00 11/13/23 03:00 11/13/23 03:00
I&O
11/12/23 11/13/23 11/14/23
06:59 06:59 06:59
Intake Total 1320 / 1320 240 / 240
Balance 1320 / 1320 240 / 240
[2023-11-13] MEDS: ORAJEL 10% GEL 1 APPLIC TOPICAL ×2 (08:27→17:09)
[2023-11-13] MEDS: LASIX 80 MG IV ×2 (08:28→17:09)
[2023-11-13] MEDS: KCL 40 MEQ PO (08:32)
[2023-11-13] MEDS: VISBIOME 2 CAP PO (08:32)
[2023-11-13] MEDS: ProAmatine 10 MG PO ×2 (08:33→20:32)
[2023-11-13] MEDS: MIRALAX 17 GRAMS PO (08:33)
[2023-11-13] MEDS: ELIQUIS 5 MG PO ×2 (08:33→20:31)
[2023-11-13] MEDS: PROTONIX 40 MG PO ×2 (08:33→20:32)
[2023-11-13] MEDS: SENOKOT-S 1 TABLET PO ×2 (08:33→20:32)
[2023-11-13] MEDS: ALDACTONE 25 MG PO (08:34)
[2023-11-13] MEDS: DESITIN MAXIMUM STRENGTH PASTE 1 APPLIC TOPICAL ×2 (08:34→20:31)
[2023-11-13] MEDS: THERAGRAN PO (08:47)
[2023-11-13 09:24] LABS: Glycohemoglobin (HgbA1c) 5.6 % (4.0-5.6)
[2023-11-13 10:02] LABS: Blood Urea Nitrogen 22 mg/dl (7-17); Calcium 9.1 mg/dl (8.4-10.2); Carbon Dioxide 28 mmol/L (22-30); Chloride 95 mmol/L (98-107); Estimated Creatinine Clearance 67 ml/min; Glucose 119 mg/dl (70-99); Potassium 4.2 mmol/L (3.5-5.1); Sodium 131 mmol/L (135-145); eGFR > 60.00
--- NOTE | 2023-11-13 10:26 | W.PN.CD ---
Today's Communication / Plan
-
Zaroxoly tomorrow
BID Lasix
Add SGLT2 now and reconfirm no coverage. Perahaps for 3-4 months we can find samples to see if we can improve her clinical status, not a snf option...
Impression / Plan
-
Background: 68 y/o female with morbid obesity, permanent atrial fibrillation/atrial tachycardia s/p AVN ablation and PPM, moderate/severe calcific mitral stenosis admitted with HFmEF.
HFmEF/NICMO
- On Lasix 80 BID and one dose Zaroxolyn weight down just 1 kg
-Acute on chronic. Severe, requiring monitoring of labs and tele.
-No CAD on cath 06/2022.
-echo 11/01/23: EF 45%, moderate MS, mild/moderate
-Weight is down; this is her lowest recorded weight, and we need to reset dry weight.
-Continue spironolactone; she does not have coverage for SGLT2i. => will ask case management to confirm
-Right heart cath 11/09 revealed a significantly elevated PCWP of 36 mmHg.
-Continue Lasix 80 mg IV BID.
-metolazone x1 tomorrow AM,. Had one dose 11/12/2023
Afib, ATach, permanent
-Chronic, stable.
-S/P AV node ablation/pacemaker; residual ASD from EP procedure noted on [facility] yesterday.
-[id number] 6 (age1, HF, HTN, female, hx CVA).
-Continue apixaban for therapeutic anticoagulation.
Hypotension
-New diagnosis.
-Improved on midodrine.
Obesity, morbid
-Chronic, stable.
Subjective/Interval History:
Feels a bit better
DATA:
Right heart cath 11/10/2023:
Weight (kg):108.6
PA (s/d/x mmHg): 73/40/51
PCWP (a/v/x mmHg): 48/61/36
RV (s/x mmHg): 70/13
RA (a/v/x mmHg): 19//14
SVC SvO2 (%):52.1
IVC SvO2 (%):56.8
RA SvO2 (%):68.9
RV SvO2 (%):68.8
PA SvO2 (%):65.8
MVO2 (%):53.28
SaO2 (%):98.0 (assumed)
Hbg (g/dL):12.5
Qp:Qs:1.39
Caryl
CO (liters/minute):2.52
CI (liters/minute/m2):1.24
Thermodilution
CO (liters/minute):Not performed.
CI (liters/minute/m2):Not performed.
TPG (mmHg):15
PVR (Multani Units):5.95
AVO2 Difference (Volume %): 8.95
Radiation (mGy): 145.19
DAP (cm2.Gy): 18.6646
Fluoroscopy time (minutes):9.4
CONCLUSION:
1. Severely elevated filling pressures (PCWP = 36 mmHg at 108.6 kg).
2. Severe precapillary and postcapillary pulmonary hypertension (mean PA pressure 51 mmHg, PCWP = 36 mmHg, PVR = 5.95 Multani units).
3. Significant left to right shunt at the level of the atrium (QP:QS = 1.39), likely residual ASD from prior EP procedure.
4. Severely depressed cardiac index (1.24 L/min/m�).
5. Previously documented moderate to severe calcific mitral valve stenosis.
TTE, 11/01/2023:
CONCLUSIONS
Mildly reduced left ventricular systolic function.
Hypokinesis of the septal wall, LV ejection fraction is 45% by Scherer's
method of discs.
Enlarged right ventricular size with reduced systolic function.
Moderate mitral stenosis.
Mild to moderate aortic stenosis.
Compared to previous echo images 07/26/23, the ejection fraction is similar to
slightly worse with more significant septal hypokinesis.
Left atrial Pressure: 09/22/22 (PVI), weight 136.5 kg
Pre-Procedure: Mean LA pressure was 17mmHg
Post-Procedure: Mean LA pressure was 21mmHg
Post-Procedure: Mean RA pressure was 16mmHg
Cath 06/23/22:
CONCLUSIONS:
1. Left dominant circulation with no coronary artery disease.
2. Probably severe mitral valve stenosis (mean gradient 11.1 mmHg, mitral valve area 1.43).
3. Severely elevated filling pressures (LVEDP = 24 mmHg, PCWP = 42 mmHg at 147.0 kg).
4. At least moderate pulmonary hypertension, WHO group 2.
5. Concordance on simultaneous LV/PA and LV/RV tracings.
Physical Exam
Vital Signs/Labs
Vital Signs
Temp Pulse Resp BP Pulse Ox
97.6 F 72 20 99/61 96
11/13/23 08:00 11/13/23 08:34 11/13/23 08:00 11/13/23 08:34 11/13/23 09:51
11/12/23 11/13/23 11/14/23
06:59 06:59 06:59
Actual Weight 109.911 kg 108.012 kg
11/10/23 07:31
11/13/23 08:58
Magnesium 2.1 mg/dl (1.6-2.3) 11/10/23 07:31
10/30/23 11/04/23 11/08/23
21:09 10:17 07:52
Lsj-W-Evoqlhaslvb Pept [id number] [id number]
Physical Exam
Constitutional: No acute distress
EENT: Anicteric
Cardiovascular: Rhythm & rate is regular and Pedal edema is absent
Respiratory: Respiratory effort normal and Lungs clear to auscul.
GI: Soft and Distention absent
Data Reviewed
-
Date of Service: November 13, 2023
--- NOTE | 2023-11-13 10:42 | CM ---
Received consult for colunga check on Jardiance and Farxiga 10mg daily. Per [facility] colunga check, neither medication is covered.
[2023-11-13 11:00] VITALS: BP 102/58
[2023-11-13 15:47] VITALS: BP 118/70
[2023-11-13 19:00] VITALS: BP 127/78
[2023-11-13] MEDS: ADVAIR HFA 115/21 MCG INHALER 2 PUFF INH (20:28)
[2023-11-13] MEDS: MUCINEX 600 MG PO (20:33)
[2023-11-13] MEDS: CRESTOR 20 MG PO (20:33)
[2023-11-13] MEDS: SINGULAIR 10 MG PO (20:33)
[2023-11-13 23:00] VITALS: BP 123/72
[2023-11-14] MEDS: ORAJEL 10% GEL 1 APPLIC TOPICAL ×4 (00:01→21:29)
[2023-11-14 03:00] VITALS: BP 97/59
[2023-11-14] MEDS: CARAFATE 1 GRAM PO ×2 (05:41→17:48)
[2023-11-14 06:00] VITALS: BMI 44.6
[2023-11-14 07:46] LABS: Blood Urea Nitrogen 29 mg/dl (7-17); Carbon Dioxide 32 mmol/L (22-30); Chloride 90 mmol/L (98-107); Estimated Creatinine Clearance 67 ml/min; Glucose 117 mg/dl (70-99); Potassium 3.5 mmol/L (3.5-5.1); Sodium 132 mmol/L (135-145); eGFR > 60.00
[2023-11-14 07:50] VITALS: BP 118/69
[2023-11-14] MEDS: ADVAIR HFA 115/21 MCG INHALER 2 PUFF INH ×2 (08:25→20:04)
--- NOTE | 2023-11-14 08:33 | W.PN.HOSP.TC ---
Today's Communication/Plan
-
See bold
Assessment / Plan
Assessment / Plan
HPI: 68 y/o female with persistent AFIB on Eliquis, hx PVI 2022- repeat 02/2023, pacemaker and AVN ablation 08/2023, HFpEF, moderate MS, HTN, CVA 1988, breast cancer 2010 with hx chemo/surgery/radiation, obesity, lymphedema. Patient with recent
hospitalization and subsequent discharge 10/22/23. patient was reported to have black stools and had endoscopy and colonoscopy 10/15/2023 evidence of esophagitis. Anticoagulation was resumed. Patient did receive additional IV Lasix for treatment of
heart failure during that admission and was transition to Lasix 80 mg daily. She states she is compliant with her medications her weights have not changed.
#Acute heart failure with reduced ejection fraction
#Shortness of breath
Appreciate cardiology input, 11/09 RHC shows severely elevated filling pressures
Continue Lasix 80 mg IV twice daily. Weights are trending down, she will need a new dry weight
Cardiology ordered metolazone x 1 on 11/11.
Continue spironolactone.
PT rec SNF vs home PT. Lives alone, WC bound
#Hyponatremia
TSH and cortisol normal
Sodium improved at 132
Continue fluid restriction, trend sodium
#Acute on Chronic hypoxic respiratory failure baseline 2L
Due to heart failure exacerbation possible pna
Currently on 2 L of oxygen, her baseline
Incentive spirometer
#Mouth sores
Started Orajel 11/12
#Hypokalemia
Repleted and resolved
#Possible superimposed PNA
Persistent Leukocytosis
Procal elevated
Status post 7 days of Augmentin
#Allergic asthma
#Chronic cough
#Suspected obstructive sleep apnea
Continue Singulair, bronchodilators
#Permanent atrial fibrillation as per cardio
Status post AV chris ablation with pacemaker
Continue Eliquis
#Esophagitis
Continue PPI twice daily for 2 months after EGD on 10/14, then daily
Continue Carafate
#Chronic ambulatory dysfunction
She uses a wheelchair at baseline, lives alone
Will need home care upon discharge
#Chronic hypotension
Continue midodrine 10 mg twice a day
#History of stroke
Continue statin
#Morbid obesity due to excess calories
Affects all aspects of care
#History of breast cancer
Status post chemo/surgery/radiation
#Constipation
cont bowel regimen
once suppository attempted
#reports Hemorrhoid pain
Anusol suppository bedtime 7 days ordered
DVT prophylaxis�Eliquis
Full code
Total time spent to see the patient on the floor, examine the patient, review data and lab results, discuss treatment plan with patient, nursing staff around 37 minutes.
Physical Exam
General: Morbidly obese, no acute distress
HEENT: Normocephalic, Atraumatic, EOMI, MMM
Respiratory: Diminished breath sounds at the bases
Cardiac: Normal S1/S2, Regular Rate and Rhythm
GI: Soft, Nontender, Nondistended, Normal Bowel Sounds
Extremities: No Clubbing, Cyanosis, or Edema
Neuro: Nonfocal/Grossly Intact
Psych: Calm, Cooperative
Anticipated Discharge: 24 - 48 hours
Subjective/Interval History
-
Date of Service: November 14, 2023
No acute events. Patient reports improvement in her mouth sore pain. Has chronic shortness of breath. No fever, no vomiting.
Objective Data
-
Labs:
Laboratory Results
11/14/23
06:24
Sodium 132 L
Potassium 3.5
Chloride 90 L
Carbon Dioxide 32 H
BUN 29 H
Creatinine 0.9
Glucose 117 H
Calcium 9.0
Vital Signs:
Vital Signs
Temp Pulse Resp BP Pulse Ox
97.8 F 70 14 118/69 91
11/14/23 07:50 11/14/23 08:29 11/14/23 08:29 11/14/23 07:50 11/14/23 08:29
I&O
11/13/23 11/14/23 11/15/23
06:59 06:59 06:59
Intake Total 240 / 240 1320 / 1320
Balance 240 / 240 1320 / 1320
[2023-11-14] MEDS: ProAmatine 10 MG PO ×2 (09:29→20:00)
[2023-11-14] MEDS: ALDACTONE 25 MG PO (09:30)
[2023-11-14] MEDS: THERAGRAN 1 TABLET PO (09:30)
[2023-11-14] MEDS: KCL 40 MEQ PO ×2 (09:30→19:54)
[2023-11-14] MEDS: FARXIGA 10 MG PO (09:30)
[2023-11-14] MEDS: SENOKOT-S 1 TABLET PO ×2 (09:31→19:54)
[2023-11-14] MEDS: VISBIOME 2 CAP PO (09:31)
[2023-11-14] MEDS: MIRALAX 17 GRAMS PO (09:31)
[2023-11-14] MEDS: ELIQUIS 5 MG PO ×2 (09:31→19:53)
[2023-11-14] MEDS: PROTONIX 40 MG PO ×2 (09:31→19:54)
[2023-11-14] MEDS: DESITIN MAXIMUM STRENGTH PASTE 1 APPLIC TOPICAL ×2 (09:41→20:00)
[2023-11-14] MEDS: LASIX 80 MG IV ×2 (09:46→17:52)
[2023-11-14] MEDS: ZAROXOLYN 5 MG PO (09:48)
[2023-11-14 11:26] VITALS: BP 119/74
[2023-11-14 15:39] VITALS: BP 116/76
--- NOTE | 2023-11-14 16:42 | W.PN.CD ---
Today's Communication / Plan
-
Continue BID IV Lasix, Aldactone SGLT-I (hope she can continue that as outpatient
Consider another dose of Zaroxolyn tomorrow
Dry weight has not been determined
Impression / Plan
-
Background: 68 y/o female with morbid obesity, permanent atrial fibrillation/atrial tachycardia s/p AVN ablation and PPM, moderate/severe calcific mitral stenosis admitted with HFmEF.
HFmEF/NICMO, Acute on chronic. Severe, slowing improving
- On Lasix 80 BID and Zaroxolyn on 11/11 and 11/14/2023, weight down
- requiring monitoring of labs and tele.
-Weight is down; this is her lowest recorded weight, and we need to reset dry weight.
-Continue spironolactone; she did not have coverage for SGLT2i. => will ask case management to confirm. I added SGLT-I and hope she can continue at discharge
-Right heart cath 11/10/2023 PCWP of 36 mmHg.
-Continue Lasix 80 mg IV BID.
-metolazone consider another dose 11/14 or 11/15
Afib, ATach, permanent
-Chronic, stable.
-S/P AV node ablation/pacemaker; residual ASD from EP procedure noted on R[facility] yesterday.
-[id number] (age1, HF, HTN, female, hx CVA).
-Continue apixaban for therapeutic anticoagulation.
Hypotension, improved on midodrine.
Obesity, morbid Chronic, stable.
Chronic severe ambulatory dysfxn
Subjective/Interval History:
Feels a bit better
DATA:
Right heart cath 11/10/2023:
Weight (kg):108.6
PA (s/d/x mmHg): 73/40/51
PCWP (a/v/x mmHg): 48/61/36
RV (s/x mmHg): 70/13
RA (a/v/x mmHg): /
SVC SvO2 (%):52.1
IVC SvO2 (%):56.8
RA SvO2 (%):68.9
RV SvO2 (%):68.8
PA SvO2 (%):65.8
MVO2 (%):53.28
SaO2 (%):98.0 (assumed)
Hbg (g/dL):12.5
Qp:Qs:1.39
Caryl
CO (liters/minute):2.52
CI (liters/minute/m2):1.24
Thermodilution
CO (liters/minute):Not performed.
CI (liters/minute/m2):Not performed.
TPG (mmHg):15
PVR (Multani Units):5.95
AVO2 Difference (Volume %): 8.95
CONCLUSION:
1. Severely elevated filling pressures (PCWP = 36 mmHg at 108.6 kg).
2. Severe precapillary and postcapillary pulmonary hypertension (mean PA pressure 51 mmHg, PCWP = 36 mmHg, PVR = 5.95 Multani units).
3. Significant left to right shunt at the level of the atrium (QP:QS = 1.39), likely residual ASD from prior EP procedure.
4. Severely depressed cardiac index (1.24 L/min/m�).
5. Previously documented moderate to severe calcific mitral valve stenosis.
TTE, 11/01/2023:
CONCLUSIONS
Mildly reduced left ventricular systolic function.
Hypokinesis of the septal wall, LV ejection fraction is 45% by Scherer's
method of discs.
Enlarged right ventricular size with reduced systolic function.
Moderate mitral stenosis.
Mild to moderate aortic stenosis.
Compared to previous echo images 07/26/23, the ejection fraction is similar to
slightly worse with more significant septal hypokinesis.
Left atrial Pressure: 09/22/22 (PVI), weight 136.5 kg
Pre-Procedure: Mean LA pressure was 17mmHg
Post-Procedure: Mean LA pressure was 21mmHg
Post-Procedure: Mean RA pressure was 16mmHg
Cath 06/23/22:
CONCLUSIONS:
1. Left dominant circulation with no coronary artery disease.
2. Probably severe mitral valve stenosis (mean gradient 11.1 mmHg, mitral valve area 1.43).
3. Severely elevated filling pressures (LVEDP = 24 mmHg, PCWP = 42 mmHg at 147.0 kg).
4. At least moderate pulmonary hypertension, WHO group 2.
5. Concordance on simultaneous LV/PA and LV/RV tracings.
Physical Exam
Vital Signs/Labs
Vital Signs
Temp Pulse Resp BP Pulse Ox
98 F 74 20 116/76 98
11/14/23 15:39 11/14/23 15:39 11/14/23 15:39 11/14/23 15:39 11/14/23 15:39
11/13/23 11/14/23 11/15/23
06:59 06:59 06:59
Actual Weight 108.012 kg 107.133 kg
11/10/23 07:31
11/14/23 06:24
Magnesium 2.1 mg/dl (1.6-2.3) 11/10/23 07:31
10/30/23 11/04/23 11/08/23
21:09 10:17 07:52
Zfx-H-Naezojyewnw Pept [id number]
Physical Exam
Constitutional: No acute distress
EENT: Anicteric
Cardiovascular: Rhythm & rate is regular and Pedal edema is absent
Respiratory: Respiratory effort normal and Lungs clear to auscul.
GI: Soft and Distention absent
Neuro/Psych: Alert
Data Reviewed
-
Date of Service: November 14, 2023
[2023-11-14] MEDS: FLUSH (NSS) 1 FLUSH IV (17:53)
[2023-11-14 19:15] VITALS: BP 110/74
[2023-11-14] MEDS: MUCINEX 600 MG PO (21:28)
[2023-11-14] MEDS: CRESTOR 20 MG PO (21:28)
[2023-11-14] MEDS: SINGULAIR 10 MG PO (21:29)
[2023-11-14 23:15] VITALS: BP 112/67
[2023-11-15] MEDS: CARAFATE 1 GRAM PO ×2 (05:58→16:58)
[2023-11-15 06:00] VITALS: BMI 44.3
[2023-11-15 07:00] VITALS: BP 96/52
--- NOTE | 2023-11-15 07:35 | W.PN.HOSP.TC ---
Today's Communication/Plan
-
Cont diuresis as per Cardio
PT/OT
bowel regimen
replete hypokalemia
Assessment / Plan
Assessment / Plan
HPI: 68 y/o female with persistent AFIB on Eliquis, hx PVI 2022- repeat 02/2023, pacemaker and AVN ablation 08/2023, HFpEF, moderate MS, HTN, CVA 1988, breast cancer 2010 with hx chemo/surgery/radiation, obesity, lymphedema. Patient with recent
hospitalization and subsequent discharge 10/22/23. patient was reported to have black stools and had endoscopy and colonoscopy 10/15/2023 evidence of esophagitis. Anticoagulation was resumed. Patient did receive additional IV Lasix for treatment of
heart failure during that admission and was transition to Lasix 80 mg daily. She states she is compliant with her medications her weights have not changed.
#Acute heart failure with reduced ejection fraction
#Shortness of breath
Appreciate cardiology input, 11/09 RHC shows severely elevated filling pressures
Continue Lasix 80 mg IV twice daily. Weights are trending down, she will need a new dry weight
Cardiology ordered metolazone x 1 on 11/11.
Continue spironolactone.
PT rec SNF vs home PT. Lives alone, WC bound
#Hyponatremia
TSH and cortisol normal
Sodium improved 130s
Continue fluid restriction, trend sodium
#Acute on Chronic hypoxic respiratory failure baseline 2L
Due to heart failure exacerbation possible pna
Currently on 2 L of oxygen, her baseline
Incentive spirometer
#Mouth sores
Started Orajel 11/12
#Hypokalemia
Repleted and resolved
#Possible superimposed PNA
Persistent Leukocytosis
Procal elevated
Status post 7 days of Augmentin
#Allergic asthma
#Chronic cough
#Suspected obstructive sleep apnea
Continue Singulair, bronchodilators
#Permanent atrial fibrillation as per cardio
Status post AV chris ablation with pacemaker
Continue Eliquis
#Esophagitis
Continue PPI twice daily for 2 months after EGD on 10/14, then daily
Continue Carafate
#Chronic ambulatory dysfunction
She uses a wheelchair at baseline, lives alone
Will need home care upon discharge
#Chronic hypotension
Continue midodrine 10 mg twice a day
#History of stroke
Continue statin
#Morbid obesity due to excess calories
Affects all aspects of care
#History of breast cancer
Status post chemo/surgery/radiation
#Constipation
cont bowel regimen
suppository prn
#reports Hemorrhoid pain
completed 7 days Anusol
#Hypokalemia
monitor and replete as necessary
DVT prophylaxis�Eliquis
Full code
Total time spent to see the patient on the floor, examine the patient, review data and lab results, discuss treatment plan with patient, nursing staff around 50 minutes.
Physical Exam
General: Morbidly obese, no acute distress
HEENT: Normocephalic, Atraumatic, EOMI, MMM
Respiratory: Diminished breath sounds at the bases
Cardiac: Normal S1/S2, Regular Rate and Rhythm
GI: Soft, Nontender, Nondistended, Normal Bowel Sounds
Extremities: No Clubbing, Cyanosis, or Edema
Neuro: Nonfocal/Grossly Intact
Psych: Calm, Cooperative
Anticipated Discharge: 24 - 48 hours
Subjective/Interval History
-
Date of Service: November 15, 2023
Seen and examined at bedside in no acute distress resting comfortably in bed. Overall reports feeling well. Denies new acute issues at this time.
Objective Data
-
Labs:
Laboratory Results
11/15/23
07:23
Sodium Pending
Potassium Pending
Chloride Pending
Carbon Dioxide Pending
BUN Pending
Creatinine Pending
Glucose Pending
Calcium Pending
Vital Signs:
Vital Signs
Temp Pulse Resp BP Pulse Ox
97.4 F 70 18 112/67 97
11/14/23 23:15 11/14/23 23:15 11/14/23 23:15 11/14/23 23:15 11/14/23 23:15
I&O
11/14/23 11/15/23 11/16/23
06:59 06:59 06:59
Intake Total 1320 / 1320 1680 / 1680
Balance 1320 / 1320 1680 / 1680
[2023-11-15] MEDS: ADVAIR HFA 115/21 MCG INHALER 2 PUFF INH ×2 (08:31→19:24)
[2023-11-15] MEDS: LASIX 80 MG IV ×2 (08:47→17:13)
--- NOTE | 2023-11-15 08:48 | W.PN.CD ---
Addendum entered and electronically signed by Lala Jones MD 11/15/23 11:56:
I saw and examined the patient.
The FIELD ADVISOR's note was reviewed and I agree with the note.
Comment: She is finally feeling improvement in her cough. She still has some dyspnea. She has clear lungs and rrrr. Her body habitus precludes her volume exam but her legs are without edema. We are trying to establish a dry weight. I suspect still
a way to go but with NA 129 will continue just lasix today and not metolazone.
Original Note:
Today's Communication / Plan
-
BMP pending
Consider metolazone 30 minutes before furosemide dose pending BMP
Impression / Plan
-
Background: 68F with morbid obesity, permanent atrial fibrillation/atrial tachycardia s/p AVN ablation and PPM, moderate/severe calcific mitral stenosis admitted with HFmEF.
Pill Packer: Dr. Montes
HFmEF/NICMO, Acute on chronic
-Severe, requiring hospitalization, slowing improving
-On Lasix 80 BID, continue (this requires intensive monitoring of BMP, I/O, and daily weight)
-Metolazone on 11/11 and 11/14/2023, weight down, consider additional dose this morning when BMP results
-Weight is down; this is her lowest recorded weight, and we need to reset dry weight.
-Continue spironolactone
-She did not have coverage for SGLT2i. => Case management confirmed
-[facility] 11/10/2023 PCWP of 36 mmHg.
Atrial tachycardia
Atrial fibrillation, permanent
-Chronic, stable.
-S/P AV node ablation/pacemaker; residual ASD from EP procedure noted on [facility] yesterday.
-[id number] 6 (age1, HF, HTN, female, hx CVA).
-Continue apixaban for therapeutic anticoagulation.
Hypotension, improved on midodrine.
Obesity, morbid Chronic, stable.
Chronic severe ambulatory dysfxn
Subjective/Interval History:
Breathing a bit easier. No chest pain.
DATA:
Right heart cath 11/10/2023:
Weight (kg):108.6
PA (s/d/x mmHg): 73/40/51
PCWP (a/v/x mmHg): 48/61/36
RV (s/x mmHg): 70/13
RA (a/v/x mmHg): 19//14
SVC SvO2 (%):52.1
IVC SvO2 (%):56.8
RA SvO2 (%):68.9
RV SvO2 (%):68.8
PA SvO2 (%):65.8
MVO2 (%):53.28
SaO2 (%):98.0 (assumed)
Hbg (g/dL):12.5
Qp:Qs:1.39
Caryl
CO (liters/minute):2.52
CI (liters/minute/m2):1.24
Thermodilution
CO (liters/minute):Not performed.
CI (liters/minute/m2):Not performed.
TPG (mmHg):15
PVR (Multani Units):5.95
AVO2 Difference (Volume %): 8.95
CONCLUSION:
1. Severely elevated filling pressures (PCWP = 36 mmHg at 108.6 kg).
2. Severe precapillary and postcapillary pulmonary hypertension (mean PA pressure 51 mmHg, PCWP = 36 mmHg, PVR = 5.95 Multani units).
3. Significant left to right shunt at the level of the atrium (QP:QS = 1.39), likely residual ASD from prior EP procedure.
4. Severely depressed cardiac index (1.24 L/min/m�).
5. Previously documented moderate to severe calcific mitral valve stenosis.
TTE, 11/01/2023:
CONCLUSIONS
Mildly reduced left ventricular systolic function.
Hypokinesis of the septal wall, LV ejection fraction is 45% by Scherer's
method of discs.
Enlarged right ventricular size with reduced systolic function.
Moderate mitral stenosis.
Mild to moderate aortic stenosis.
Compared to previous echo images 07/26/23, the ejection fraction is similar to
slightly worse with more significant septal hypokinesis.
Left atrial Pressure: 09/22/22 (PVI), weight 136.5 kg
Pre-Procedure: Mean LA pressure was 17mmHg
Post-Procedure: Mean LA pressure was 21mmHg
Post-Procedure: Mean RA pressure was 16mmHg
Cath 06/23/22:
CONCLUSIONS:
1. Left dominant circulation with no coronary artery disease.
2. Probably severe mitral valve stenosis (mean gradient 11.1 mmHg, mitral valve area 1.43).
3. Severely elevated filling pressures (LVEDP = 24 mmHg, PCWP = 42 mmHg at 147.0 kg).
4. At least moderate pulmonary hypertension, WHO group 2.
5. Concordance on simultaneous LV/PA and LV/RV tracings.
Physical Exam
Vital Signs/Labs
Vital Signs
Temp Pulse Resp BP Pulse Ox
97.4 F 70 16 112/67 98
11/14/23 23:15 11/15/23 08:32 11/15/23 08:32 11/14/23 23:15 11/15/23 08:32
11/14/23 11/15/23 11/16/23
06:59 06:59 06:59
Actual Weight 107.133 kg 106.226 kg
11/10/23 07:31
Magnesium 2.1 mg/dl (1.6-2.3) 11/10/23 07:31
10/30/23 11/04/23 11/08/23
21:09 10:17 07:52
Cfo-S-Xmgokzkbxco Pept [id number]
Physical Exam
Constitutional: No acute distress and Comfortable
EENT: Anicteric and Moist mucous membranes
Cardiovascular: Rhythm/rate is irregular, S1S2 is normal and Murmur/rub/gallop absent
Respiratory: Respiratory effort normal and Lungs clear to auscul.
GI: Soft, Distention absent, Flat, Non tender and Normal bowel sounds
Neuro/Psych: AO x 3
Other: Skin (warm and dry)
Data Reviewed
-
Date of Service: November 15, 2023
Labs: Labs Reviewed by me
Old Records: Reviewed
[2023-11-15 08:49] LABS: Blood Urea Nitrogen 31 mg/dl (7-17); Calcium 9.3 mg/dl (8.4-10.2); Carbon Dioxide 33 mmol/L (22-30); Chloride 87 mmol/L (98-107); Estimated Creatinine Clearance 60 ml/min; Glucose 129 mg/dl (70-99); Magnesium 1.8 mg/dl (1.6-2.3); Potassium 3.4 mmol/L (3.5-5.1); Sodium 129 mmol/L (135-145); eGFR > 60.00
[2023-11-15] MEDS: FLUSH (NSS) 1 FLUSH IV (08:49)
[2023-11-15] MEDS: VISBIOME 2 CAP PO (08:50)
[2023-11-15] MEDS: ProAmatine 10 MG PO ×2 (08:50→20:26)
[2023-11-15] MEDS: PROTONIX 40 MG PO ×2 (08:50→20:25)
[2023-11-15] MEDS: KCL 40 MEQ PO ×3 (08:51→20:24)
[2023-11-15] MEDS: FARXIGA 10 MG PO (08:51)
[2023-11-15] MEDS: THERAGRAN 1 TABLET PO (08:51)
[2023-11-15] MEDS: MIRALAX 17 GRAMS PO (08:52)
[2023-11-15] MEDS: ELIQUIS 5 MG PO ×2 (08:52→20:25)
[2023-11-15] MEDS: ORAJEL 10% GEL 1 APPLIC TOPICAL ×3 (08:54→21:13)
[2023-11-15] MEDS: ALDACTONE 25 MG PO (08:54)
[2023-11-15] MEDS: SENOKOT-S 1 TABLET PO ×2 (08:54→20:25)
[2023-11-15] MEDS: DESITIN MAXIMUM STRENGTH PASTE 1 APPLIC TOPICAL ×2 (09:00→20:29)
[2023-11-15 15:00] VITALS: BP 113/69
--- NOTE | 2023-11-15 15:07 | VATNOTE ---
Pt's IV is 10 days old, discussed with pt replacing the IV at this time. Pt declining restart, states the IV feels fine. No redness or swelling noted.
[2023-11-15] MEDS: FLUSH (NSS) 2 FLUSH IV (16:58)
[2023-11-15] MEDS: CRESTOR 20 MG PO (21:13)
[2023-11-15] MEDS: MUCINEX 600 MG PO (21:13)
[2023-11-15] MEDS: SINGULAIR 10 MG PO (21:13)
[2023-11-15 23:02] VITALS: BP 105/68
[2023-11-16] MEDS: CARAFATE 1 GRAM PO ×2 (05:26→15:40)
[2023-11-16 06:00] VITALS: BMI 44.5
[2023-11-16 07:00] VITALS: BP 107/60
--- NOTE | 2023-11-16 07:34 | W.PN.HOSP.TC ---
Today's Communication/Plan
-
Cont diuresis as per Cardio
PT/OT
bowel regimen
discharge planning SNF rehab
Assessment / Plan
Assessment / Plan
HPI: 68 y/o female with persistent AFIB on Eliquis, hx PVI 2022- repeat 02/2023, pacemaker and AVN ablation 08/2023, HFpEF, moderate MS, HTN, CVA 1988, breast cancer 2010 with hx chemo/surgery/radiation, obesity, lymphedema. Patient with recent
hospitalization and subsequent discharge 10/22/23. patient was reported to have black stools and had endoscopy and colonoscopy 10/15/2023 evidence of esophagitis. Anticoagulation was resumed. Patient did receive additional IV Lasix for treatment of
heart failure during that admission and was transition to Lasix 80 mg daily. She states she is compliant with her medications her weights have not changed.
#Acute heart failure with reduced ejection fraction
#Shortness of breath
Appreciate cardiology input, 11/09 RHC shows severely elevated filling pressures
Continue Lasix 80 mg IV twice daily.
metolazone prn as per Cardio
Continue spironolactone.
PT rec SNF vs home PT. Lives alone, WC bound
#Hyponatremia
TSH and cortisol normal
Sodium improved 130s
Continue fluid restriction, trend sodium
#Acute on Chronic hypoxic respiratory failure baseline 2L
Due to heart failure exacerbation possible pna
Currently on 2 L of oxygen, her baseline
Incentive spirometer
#Mouth sores
Started Orajel 11/12
#Hypokalemia
Repleted and resolved
#Possible superimposed PNA
Persistent Leukocytosis
Procal elevated
Status post 7 days of Augmentin
#Allergic asthma
#Chronic cough
#Suspected obstructive sleep apnea
Continue Singulair, bronchodilators
#Permanent atrial fibrillation as per cardio
Status post AV chris ablation with pacemaker
Continue Eliquis
#Esophagitis
Continue PPI twice daily for 2 months after EGD on 10/14, then daily
Continue Carafate
#Chronic ambulatory dysfunction
She uses a wheelchair at baseline, lives alone
Will need home care upon discharge
#Chronic hypotension
Continue midodrine 10 mg twice a day
#History of stroke
Continue statin
#Morbid obesity due to excess calories
Affects all aspects of care
#History of breast cancer
Status post chemo/surgery/radiation
#Constipation
cont bowel regimen
suppository prn
#reports Hemorrhoid pain
completed 7 days Anusol
#Hypokalemia
monitor and replete as necessary
DVT prophylaxis�Eliquis
Full code
Total time spent to see the patient on the floor, examine the patient, review data and lab results, discuss treatment plan with patient, nursing staff around 50 minutes.
Physical Exam
General: Morbidly obese, no acute distress
HEENT: Normocephalic, Atraumatic, EOMI, MMM
Respiratory: Diminished breath sounds at the bases
Cardiac: Normal S1/S2, Regular Rate and Rhythm
GI: Soft, Nontender, Nondistended, Normal Bowel Sounds
Extremities: No Clubbing, Cyanosis, or Edema
Neuro: Nonfocal/Grossly Intact
Psych: Calm, Cooperative
Anticipated Discharge: 24 - 48 hours
Subjective/Interval History
-
Date of Service: November 16, 2023
No acute distress comfortable at this time. OVerall reports feeling well.
Objective Data
-
Labs:
Laboratory Results
11/16/23
06:00
WBC Pending
Hgb Pending
Hct Pending
Plt Count Pending
Sodium Pending
Potassium Pending
Chloride Pending
Carbon Dioxide Pending
BUN Pending
Creatinine Pending
Glucose Pending
Calcium Pending
Vital Signs:
Vital Signs
Temp Pulse Resp BP Pulse Ox
97.9 F 71 16 105/68 97
11/15/23 23:02 11/15/23 23:02 11/15/23 23:02 11/15/23 23:02 11/15/23 23:02
I&O
11/15/23 11/16/23 11/17/23
06:59 06:59 06:59
Intake Total 1680 / 1680 240 / 240
Balance 1680 / 1680 240 / 240
[2023-11-16] MEDS: VISBIOME 2 CAP PO (07:53)
[2023-11-16] MEDS: KCL 40 MEQ PO ×2 (07:54→21:12)
[2023-11-16] MEDS: ALDACTONE 25 MG PO (07:54)
[2023-11-16] MEDS: THERAGRAN 1 TABLET PO (07:55)
[2023-11-16] MEDS: MIRALAX 17 GRAMS PO (07:55)
[2023-11-16] MEDS: PROTONIX 40 MG PO ×2 (07:55→21:12)
[2023-11-16] MEDS: DESITIN MAXIMUM STRENGTH PASTE 1 APPLIC TOPICAL ×2 (07:55→21:13)
[2023-11-16] MEDS: ORAJEL 10% GEL 1 APPLIC TOPICAL ×3 (07:55→21:14)
[2023-11-16] MEDS: LASIX 80 MG IV ×2 (07:55→15:40)
[2023-11-16] MEDS: FARXIGA 10 MG PO (07:55)
[2023-11-16] MEDS: ELIQUIS 5 MG PO ×2 (07:56→21:12)
[2023-11-16] MEDS: ProAmatine 10 MG PO ×2 (07:56→21:12)
[2023-11-16] MEDS: SENOKOT-S 1 TABLET PO ×2 (07:56→21:12)
[2023-11-16] MEDS: ADVAIR HFA 115/21 MCG INHALER 2 PUFF INH ×2 (08:00→21:27)
[2023-11-16 08:45] LABS: Hematocrit 41.4 % (37.0-47.0); Hemoglobin 13.7 g/dL (12.0-16.0); Mean Corp Hgb Conc. 33.1 g/dL (33.0-37.0); Mean Corpuscular Hgb 30.1 pg (27.0-31.0); Mean Platelet Volume 9.7 fL (7.4-10.4); Platelet Count 427 10^3/uL (130-400); Red Blood Cell Count 4.55 10^6/uL (4.20-5.40); Red Cell Dist. Width 16.3 % (11.5-14.5); White Blood Cell Count 12.3 10^3/uL (4.8-10.8)
[2023-11-16 09:05] LABS: Blood Urea Nitrogen 33 mg/dl (7-17); Calcium 9.6 mg/dl (8.4-10.2); Carbon Dioxide 30 mmol/L (22-30); Chloride 87 mmol/L (98-107); Estimated Creatinine Clearance 67 ml/min; Glucose 127 mg/dl (70-99); Phosphorus 3.7 mg/dl (2.5-4.5); Potassium 3.7 mmol/L (3.5-5.1); Sodium 129 mmol/L (135-145); eGFR > 60.00
--- NOTE | 2023-11-16 09:26 | W.PN.CD ---
Today's Communication / Plan
-
metolazone before iv lasix this afternoon
close monitoring of labs and vs
Impression / Plan
-
Background: 68F with morbid obesity, permanent atrial fibrillation/atrial tachycardia s/p AVN ablation and PPM, moderate/severe calcific mitral stenosis admitted with HFmEF.
Environmental Health Specialist: Dr. Montes
HFmEF/NICMO, Acute on chronic
-Severe, requiring hospitalization, slowing improving
-On Lasix 80 BID,
-continue (this requires intensive monitoring of BMP, I/O, and daily weight)
-Metolazone on 11/11 and 11/14/2023, weight down, will given another dose of metolazone 11/16/23.
-Weight is down; this is her lowest recorded weight, and we need to reset dry weight.
-Continue spironolactone
-She did not have coverage for SGLT2i. => Case management confirmed
-C 11/10/2023 PCWP of 36 mmHg.
Atrial tachycardia
Atrial fibrillation, permanent
-Chronic, stable.
-S/P AV node ablation/pacemaker; residual ASD from EP procedure noted on C yesterday.
-[id number] 6 (age1, HF, HTN, female, hx CVA).
-Continue apixaban for therapeutic anticoagulation.
Hyponatremia:
-suspect hypervolemic hyponatremia
-she has been in this range for a while, but I suspect chronically volume overloaded
-will watch with diuresis
Hypotension, improved on midodrine.
Obesity, morbid Chronic, stable.
Chronic severe ambulatory dysfxn
Subjective/Interval History:
Cough improving, No chest pain.
DATA:
Right heart cath 11/10/2023:
Weight (kg):108.6
PA (s/d/x mmHg): 73/40/51
PCWP (a/v/x mmHg): 48/61/36
RV (s/x mmHg): 70/13
RA (a/v/x mmHg): //14
SVC SvO2 (%):52.1
IVC SvO2 (%):56.8
RA SvO2 (%):68.9
RV SvO2 (%):68.8
PA SvO2 (%):65.8
MVO2 (%):53.28
SaO2 (%):98.0 (assumed)
Hbg (g/dL):12.5
Qp:Qs:1.39
Caryl
CO (liters/minute):2.52
CI (liters/minute/m2):1.24
Thermodilution
CO (liters/minute):Not performed.
CI (liters/minute/m2):Not performed.
TPG (mmHg):15
PVR (Multani Units):5.95
AVO2 Difference (Volume %): 8.95
CONCLUSION:
1. Severely elevated filling pressures (PCWP = 36 mmHg at 108.6 kg).
2. Severe precapillary and postcapillary pulmonary hypertension (mean PA pressure 51 mmHg, PCWP = 36 mmHg, PVR = 5.95 Multani units).
3. Significant left to right shunt at the level of the atrium (QP:QS = 1.39), likely residual ASD from prior EP procedure.
4. Severely depressed cardiac index (1.24 L/min/m�).
5. Previously documented moderate to severe calcific mitral valve stenosis.
TTE, 11/01/2023:
CONCLUSIONS
Mildly reduced left ventricular systolic function.
Hypokinesis of the septal wall, LV ejection fraction is 45% by Scherer's
method of discs.
Enlarged right ventricular size with reduced systolic function.
Moderate mitral stenosis.
Mild to moderate aortic stenosis.
Compared to previous echo images 07/26/23, the ejection fraction is similar to
slightly worse with more significant septal hypokinesis.
Left atrial Pressure: 09/22/22 (PVI), weight 136.5 kg
Pre-Procedure: Mean LA pressure was 17mmHg
Post-Procedure: Mean LA pressure was 21mmHg
Post-Procedure: Mean RA pressure was 16mmHg
Cath 06/23/22:
CONCLUSIONS:
1. Left dominant circulation with no coronary artery disease.
2. Probably severe mitral valve stenosis (mean gradient 11.1 mmHg, mitral valve area 1.43).
3. Severely elevated filling pressures (LVEDP = 24 mmHg, PCWP = 42 mmHg at 147.0 kg).
4. At least moderate pulmonary hypertension, WHO group 2.
5. Concordance on simultaneous LV/PA and LV/RV tracings.
Physical Exam
Vital Signs/Labs
Vital Signs
Temp Pulse Resp BP Pulse Ox
97.8 F 72 16 107/60 96
11/16/23 07:00 11/16/23 08:03 11/16/23 08:03 11/16/23 07:00 11/16/23 08:03
11/15/23 11/16/23 11/17/23
06:59 06:59 06:59
Actual Weight 106.226 kg 106.849 kg
11/16/23 07:50
11/16/23 07:50
Magnesium 2.0 mg/dl (1.6-2.3) 11/16/23 07:50
10/30/23 11/04/23 11/08/23
21:09 10:17 07:52
[id number] Pept [phone] [id number]
Physical Exam
Constitutional: No acute distress and Other (morbidly obese)
Cardiovascular: Pedal edema is absent and Rhythm/rate is irregular
Respiratory: Respiratory effort normal and Lungs clear to auscul.
Neuro/Psych: AO x 3
Data Reviewed
-
Date of Service: November 16, 2023
Medical Decision Making: Review of Case with other Provider (D/w Nursing and Dr Venegas--will give metolazone today prior to lasix)
--- NOTE | 2023-11-16 11:02 | CM ---
Addendum entered by Keya Giordano 11/16/23 15:26:
PT/OT recommending skilled rehab.
referrals to [facility], [facility] and [facility].
Original Note:
Patient seen bedside.
Discussed skilled rehab with patient.
Patient thinks she may want to go home instead.
Await updated therapy notes.
Plan: home with VN vs Skilled rehab.
[2023-11-16 14:24] VITALS: BP 108/75; PULSE 70; O2SAT 9
[2023-11-16 14:29] VITALS: BP 108/75; PULSE 70; O2SAT 97
[2023-11-16] MEDS: ZAROXOLYN 5 MG PO (14:54)
[2023-11-16 15:00] VITALS: BP 107/71
[2023-11-16] MEDS: MUCINEX 600 MG PO (21:12)
[2023-11-16] MEDS: SINGULAIR 10 MG PO (21:12)
[2023-11-16] MEDS: CRESTOR 20 MG PO (21:12)
[2023-11-16 23:09] VITALS: BP 117/79
[2023-11-17] MEDS: BENADRYL 25 MG PO (02:40)
[2023-11-17] MEDS: CARAFATE 1 GRAM PO ×2 (04:55→15:56)
[2023-11-17 05:52] VITALS: BMI 44.4
--- NOTE | 2023-11-17 07:18 | W.PN.HOSP.TC ---
Today's Communication/Plan
-
cont diuresis as per Cardio
PT/OT
discharge planning SNF rehab
Assessment / Plan
Assessment / Plan
HPI: 68 y/o female with persistent AFIB on Eliquis, hx PVI 2022- repeat 02/2023, pacemaker and AVN ablation 08/2023, HFpEF, moderate MS, HTN, CVA 1988, breast cancer 2010 with hx chemo/surgery/radiation, obesity, lymphedema. Patient with recent
hospitalization and subsequent discharge 10/22/23. patient was reported to have black stools and had endoscopy and colonoscopy 10/15/2023 evidence of esophagitis. Anticoagulation was resumed. Patient did receive additional IV Lasix for treatment of
heart failure during that admission and was transition to Lasix 80 mg daily. She states she is compliant with her medications her weights have not changed.
#Acute heart failure with reduced ejection fraction
#Shortness of breath
Appreciate cardiology input, 11/09 RHC shows severely elevated filling pressures
Continue Lasix 80 mg IV twice daily.
metolazone prn as per Cardio
Continue spironolactone.
PT rec SNF vs home PT. Lives alone, WC bound for years though was able to ambulate w walker during PT recently
pt agreeable to SNF rehab prior to returning home
#Hyponatremia
TSH and cortisol normal
Sodium improved 130s
Continue fluid restriction, trend sodium
#Acute on Chronic hypoxic respiratory failure baseline 2L
Due to heart failure exacerbation possible pna
Currently on 2 L of oxygen, her baseline
Incentive spirometer
#Mouth sores
Started Orajel 11/12
#Hypokalemia
Repleted and resolved
#Possible superimposed PNA
Persistent Leukocytosis
Procal elevated
Status post 7 days of Augmentin
#Allergic asthma
#Chronic cough
#Suspected obstructive sleep apnea
Continue Singulair, bronchodilators
#Permanent atrial fibrillation as per cardio
Status post AV chris ablation with pacemaker
Continue Eliquis
#Esophagitis
Continue PPI twice daily for 2 months after EGD on 10/14, then daily
Continue Carafate
#Chronic ambulatory dysfunction
She uses a wheelchair at baseline, lives alone
Will need home care upon discharge
#Chronic hypotension
Continue midodrine 10 mg twice a day
#History of stroke
Continue statin
#Morbid obesity due to excess calories
Affects all aspects of care
#History of breast cancer
Status post chemo/surgery/radiation
#Constipation
cont bowel regimen
suppository prn
#reports Hemorrhoid pain
completed 7 days Anusol
#Hypokalemia
monitor and replete as necessary
DVT prophylaxis�Eliquis
Full code
Total time spent to see the patient on the floor, examine the patient, review data and lab results, discuss treatment plan with patient, nursing staff around 50 minutes.
Physical Exam
General: Morbidly obese, no acute distress
HEENT: Normocephalic, Atraumatic, EOMI, MMM
Respiratory: Diminished breath sounds at the bases
Cardiac: Normal S1/S2, Regular Rate and Rhythm
GI: Soft, Nontender, Nondistended, Normal Bowel Sounds
Extremities: No Clubbing, Cyanosis, or Edema
Neuro: Nonfocal/Grossly Intact
Psych: Calm, Cooperative
Anticipated Discharge: 24 - 48 hours
Subjective/Interval History
-
Date of Service: November 17, 2023
No new acute issues.
Objective Data
-
Labs:
Laboratory Results
11/17/23
07:13
WBC Pending
Hgb Pending
Hct Pending
Plt Count Pending
Sodium Pending
Potassium Pending
Chloride Pending
Carbon Dioxide Pending
BUN Pending
Creatinine Pending
Glucose Pending
Calcium Pending
Vital Signs:
Vital Signs
Temp Pulse Resp BP Pulse Ox
98.0 F 71 18 117/79 97
11/16/23 23:09 11/16/23 23:09 11/16/23 23:09 11/16/23 23:09 11/16/23 23:09
I&O
11/16/23 11/17/23 11/18/23
06:59 06:59 06:59
Intake Total 240 / 240 1260 / 1260
Balance 240 / 240 1260 / 1260
[2023-11-17 07:50] VITALS: BP 127/68
[2023-11-17] MEDS: ADVAIR HFA 115/21 MCG INHALER 2 PUFF INH ×2 (07:59→21:15)
[2023-11-17 08:28] LABS: Blood Urea Nitrogen 34 mg/dl (7-17); Calcium 9.4 mg/dl (8.4-10.2); Carbon Dioxide 32 mmol/L (22-30); Chloride 86 mmol/L (98-107); Estimated Creatinine Clearance 66 ml/min; Glucose 124 mg/dl (70-99); Magnesium 1.9 mg/dl (1.6-2.3); Phosphorus 3.6 mg/dl (2.5-4.5); Potassium 3.5 mmol/L (3.5-5.1); Sodium 128 mmol/L (135-145); eGFR > 60.00
[2023-11-17] MEDS: VISBIOME 2 CAP PO (08:46)
[2023-11-17] MEDS: PROTONIX 40 MG PO ×2 (08:46→21:57)
[2023-11-17] MEDS: KCL 40 MEQ PO ×2 (08:47→21:55)
[2023-11-17] MEDS: ProAmatine 10 MG PO ×2 (08:47→22:07)
[2023-11-17] MEDS: ALDACTONE 25 MG PO (08:48)
[2023-11-17] MEDS: SENOKOT-S 1 TABLET PO ×2 (08:48→21:57)
[2023-11-17] MEDS: THERAGRAN 1 TABLET PO (08:48)
[2023-11-17] MEDS: FARXIGA 10 MG PO (08:48)
[2023-11-17] MEDS: ELIQUIS 5 MG PO ×2 (08:49→21:55)
[2023-11-17] MEDS: LASIX 80 MG IV ×2 (08:49→15:55)
[2023-11-17] MEDS: DESITIN MAXIMUM STRENGTH PASTE 1 APPLIC TOPICAL ×2 (08:57→21:54)
[2023-11-17] MEDS: MIRALAX PO (08:58)
[2023-11-17] MEDS: ORAJEL 10% GEL 1 APPLIC TOPICAL ×2 (08:58→15:34)
[2023-11-17 09:18] LABS: Hematocrit 40.3 % (37.0-47.0); Hemoglobin 13.5 g/dL (12.0-16.0); Mean Corp Hgb Conc. 33.5 g/dL (33.0-37.0); Mean Corpuscular Hgb 30.6 pg (27.0-31.0); Mean Corpuscular Volume 91.4 fL (81.0-99.0); Mean Platelet Volume 9.9 fL (7.4-10.4); Platelet Count 435 10^3/uL (130-400); Red Blood Cell Count 4.41 10^6/uL (4.20-5.40); Red Cell Dist. Width 16.3 % (11.5-14.5); White Blood Cell Count 11.2 10^3/uL (4.8-10.8)
--- NOTE | 2023-11-17 10:15 | W.PN.CD ---
Today's Communication / Plan
-
IV diuresis and metolazone
Impression / Plan
-
Background: 68F with morbid obesity, permanent atrial fibrillation/atrial tachycardia s/p AVN ablation and PPM, moderate/severe calcific mitral stenosis admitted with HFmEF.
Quality Tester: Dr. Montes
HFmEF/NICMO, Acute on chronic
-Severe, requiring hospitalization, slowing improving
-On Lasix 80 BID,
-continue (this requires intensive monitoring of BMP, I/O, and daily weight)
-Metolazone on 11/11 and 11/14/2023, weight down, will given another dose of metolazone 11/16/23, extra dose today as well November 16
-Weight is down; this is her lowest recorded weight, and we need to reset dry weight, looking at weight trneds likely somewhere around 230?
-Continue spironolactone
-She did not have coverage for SGLT2i. => Case management confirmed
-RHC 11/10/2023 PCWP of 36 mmHg.
Atrial tachycardia
Atrial fibrillation, permanent
-Chronic, stable.
-S/P AV node ablation/pacemaker; residual ASD from EP procedure noted on C yesterday.
-[id number] 6 (age1, HF, HTN, female, hx CVA).
-Continue apixaban for therapeutic anticoagulation.
Hyponatremia:
-suspect hypervolemic hyponatremia
-she has been in this range for a while, but I suspect chronically volume overloaded
-will watch with diuresis
Hypotension, improved on midodrine.
Obesity, morbid Chronic, stable.
Chronic severe ambulatory dysfxn
Subjective/Interval History:
Breathing continues to improve
DATA:
Right heart cath 11/10/2023:
Weight (kg):108.6
PA (s/d/x mmHg): 73/40/51
PCWP (a/v/x mmHg): 48/61/36
RV (s/x mmHg): 70/13
RA (a/v/x mmHg): 19//14
SVC SvO2 (%):52.1
IVC SvO2 (%):56.8
RA SvO2 (%):68.9
RV SvO2 (%):68.8
PA SvO2 (%):65.8
MVO2 (%):53.28
SaO2 (%):98.0 (assumed)
Hbg (g/dL):12.5
Qp:Qs:1.39
Caryl
CO (liters/minute):2.52
CI (liters/minute/m2):1.24
Thermodilution
CO (liters/minute):Not performed.
CI (liters/minute/m2):Not performed.
TPG (mmHg):15
PVR (Multani Units):5.95
AVO2 Difference (Volume %): 8.95
CONCLUSION:
1. Severely elevated filling pressures (PCWP = 36 mmHg at 108.6 kg).
2. Severe precapillary and postcapillary pulmonary hypertension (mean PA pressure 51 mmHg, PCWP = 36 mmHg, PVR = 5.95 Multani units).
3. Significant left to right shunt at the level of the atrium (QP:QS = 1.39), likely residual ASD from prior EP procedure.
4. Severely depressed cardiac index (1.24 L/min/m�).
5. Previously documented moderate to severe calcific mitral valve stenosis.
TTE, 11/01/2023:
CONCLUSIONS
Mildly reduced left ventricular systolic function.
Hypokinesis of the septal wall, LV ejection fraction is 45% by Scherer's
method of discs.
Enlarged right ventricular size with reduced systolic function.
Moderate mitral stenosis.
Mild to moderate aortic stenosis.
Compared to previous echo images 07/26/23, the ejection fraction is similar to
slightly worse with more significant septal hypokinesis.
Left atrial Pressure: 09/22/22 (PVI), weight 136.5 kg
Pre-Procedure: Mean LA pressure was 17mmHg
Post-Procedure: Mean LA pressure was 21mmHg
Post-Procedure: Mean RA pressure was 16mmHg
Cath 06/23/22:
CONCLUSIONS:
1. Left dominant circulation with no coronary artery disease.
2. Probably severe mitral valve stenosis (mean gradient 11.1 mmHg, mitral valve area 1.43).
3. Severely elevated filling pressures (LVEDP = 24 mmHg, PCWP = 42 mmHg at 147.0 kg).
4. At least moderate pulmonary hypertension, WHO group 2.
5. Concordance on simultaneous LV/PA and LV/RV tracings.
Physical Exam
Vital Signs/Labs
Vital Signs
Temp Pulse Resp BP Pulse Ox
97.9 F 72 16 127/68 96
11/17/23 07:50 11/17/23 08:43 11/17/23 08:43 11/17/23 07:50 11/17/23 08:43
11/16/23 11/17/23 11/18/23
06:59 06:59 06:59
Actual Weight 235 lb 9 oz 235 lb 1.6 oz
11/17/23 07:13
11/17/23 07:13
Magnesium 1.9 mg/dl (1.6-2.3) 11/17/23 07:13
10/30/23 11/04/23 11/08/23
21:09 10:17 07:52
[id number]-O-Hsgtrnbxmjx Pept [id number] [id number]
Physical Exam
Constitutional: No acute distress
EENT: Anicteric
Cardiovascular: Pedal edema is absent and Rhythm/rate is irregular
Respiratory: Respiratory effort normal and Lungs clear to auscul.
GI: Soft
Neuro/Psych: AO x 3
Data Reviewed
-
Date of Service: November 17, 2023
Medical Decision Making: Reviewed Test Results
Echo: Report Reviewed by me
Labs: Labs Reviewed by me
--- NOTE | 2023-11-17 14:58 | CM ---
Addendum entered by Keya Giordano 11/17/23 15:12:
[facility] is OON, patient has OON benefit.
Days 1-45 will be $225/day
Days 46-100 no charge.
Please f/u with Stacey from [facility] in am to see if they will have a bed available for Wednesday. They do accept [facility].
If no bed at [facility], she has been to [facility] in the past and would consider there. Referral placed.
Original Note:
Patient seen bedside.
Reviewed accepted beds with patient. Patient agreeable to [facility] or [facility]
Patient will require insurance authorization.
Patient will require ambulance transport.
Patient continues on IV diuresis BID.
Oxygen via NC 2liters NC (her current home oxygen is also 2 liters)
Plan: skilled rehab, possibly Wednesday, will need insurance auth once bed available.
[2023-11-17] MEDS: ZAROXOLYN 5 MG PO (15:34)
[2023-11-17 15:57] VITALS: BP 108/71
[2023-11-17] MEDS: ZOFRAN ODT (ORALLY DISINTEGRATING) 2 MG PO (20:13)
--- NOTE | 2023-11-17 20:15 | PTCARENOTE ---
Pt vomited small amount onto floor. Emesis basis provided. Reports some nausea still. [facility] covering house contacted, electronic orders received for ODT zofran (refer to [facility]) and to obtain EKG.
[2023-11-17] MEDS: CRESTOR 20 MG PO (21:57)
[2023-11-17] MEDS: MUCINEX 600 MG PO (21:57)
[2023-11-17] MEDS: SINGULAIR 10 MG PO (21:57)
[2023-11-17] MEDS: ORAJEL 10% GEL TOPICAL (22:05)
[2023-11-17 23:09] VITALS: BP 107/74
--- NOTE | 2023-11-18 00:20 | PTCARENOTE ---
Pt with another episode of emesis (partially digested food). Reports dinner too quickly. Verbalizes relief of nausea.
[2023-11-18 05:36] VITALS: BMI 44.4
[2023-11-18] MEDS: CARAFATE 1 GRAM PO ×2 (05:54→16:23)
[2023-11-18] MEDS: ADVAIR HFA 115/21 MCG INHALER 2 PUFF INH ×2 (06:33→20:15)
--- NOTE | 2023-11-18 06:49 | W.PN.HOSP.TC ---
Today's Communication/Plan
-
cont diuresis as per Cardio
PT/OT
discharge planning SNF rehab
Assessment / Plan
Assessment / Plan
HPI: 68 y/o female with persistent AFIB on Eliquis, hx PVI 2022- repeat 02/2023, pacemaker and AVN ablation 08/2023, HFpEF, moderate MS, HTN, CVA 1988, breast cancer 2010 with hx chemo/surgery/radiation, obesity, lymphedema. Patient with recent
hospitalization and subsequent discharge 10/22/23. patient was reported to have black stools and had endoscopy and colonoscopy 10/15/2023 evidence of esophagitis. Anticoagulation was resumed. Patient did receive additional IV Lasix for treatment of
heart failure during that admission and was transition to Lasix 80 mg daily. She states she is compliant with her medications her weights have not changed.
#Acute heart failure with reduced ejection fraction
#Shortness of breath
Appreciate cardiology input, 11/09 RHC shows severely elevated filling pressures
Continue Lasix 80 mg IV twice daily.
metolazone prn as per Cardio
Continue spironolactone.
PT rec SNF vs home PT. Lives alone, WC bound for years though was able to ambulate w walker during PT recently
pt agreeable to SNF rehab prior to returning home
#Hyponatremia
TSH and cortisol normal
Sodium improved 130s
Continue fluid restriction, trend sodium
#Acute on Chronic hypoxic respiratory failure baseline 2L
Due to heart failure exacerbation possible pna
Currently on 2 L of oxygen, her baseline
Incentive spirometer
#Mouth sores
Started Orajel 11/12
#Hypokalemia
Repleted and resolved
#Possible superimposed PNA
Persistent Leukocytosis
Procal elevated
Status post 7 days of Augmentin
#Allergic asthma
#Chronic cough
#Suspected obstructive sleep apnea
Continue Singulair, bronchodilators
#Permanent atrial fibrillation as per cardio
Status post AV chris ablation with pacemaker
Continue Eliquis
#Esophagitis
Continue PPI twice daily for 2 months after EGD on 10/14, then daily
Continue Carafate
#Chronic ambulatory dysfunction
She uses a wheelchair at baseline, lives alone
Will need home care upon discharge
#Chronic hypotension
Continue midodrine 10 mg twice a day
#History of stroke
Continue statin
#Morbid obesity due to excess calories
Affects all aspects of care
#History of breast cancer
Status post chemo/surgery/radiation
#Constipation
cont bowel regimen
suppository prn
#reports Hemorrhoid pain
completed 7 days Anusol
#Hypokalemia
monitor and replete as necessary
DVT prophylaxis�Eliquis
Full code
Total time spent to see the patient on the floor, examine the patient, review data and lab results, discuss treatment plan with patient, nursing staff around 40 minutes.
Physical Exam
General: Morbidly obese, no acute distress
HEENT: Normocephalic, Atraumatic, EOMI, MMM
Respiratory: Diminished breath sounds at the bases
Cardiac: Normal S1/S2, Regular Rate and Rhythm
GI: Soft, Nontender, Nondistended, Normal Bowel Sounds
Extremities: No Clubbing, Cyanosis, or Edema
Neuro: Nonfocal/Grossly Intact
Psych: Calm, Cooperative
Anticipated Discharge: 24 - 48 hours
Subjective/Interval History
-
Date of Service: November 18, 2023
Weight continues to trend down. Tolerating well
Objective Data
-
Labs:
Laboratory Results
11/18/23
06:00
WBC Pending
Hgb Pending
Hct Pending
Plt Count Pending
Sodium Pending
Potassium Pending
Chloride Pending
Carbon Dioxide Pending
BUN Pending
Creatinine Pending
Glucose Pending
Calcium Pending
Vital Signs:
Vital Signs
Temp Pulse Resp BP Pulse Ox
97.7 F 73 18 107/74 95
11/17/23 23:09 11/17/23 23:09 11/17/23 23:09 11/17/23 23:09 11/18/23 00:30
I&O
11/16/23 11/17/23 11/18/23
06:59 06:59 06:59
Intake Total 240 / 240 1260 / 1260 820 / 820
Balance 240 / 240 1260 / 1260 820 / 820
[2023-11-18 07:25] VITALS: BP 126/72
[2023-11-18] MEDS: MIRALAX 17 GRAMS PO (08:53)
[2023-11-18] MEDS: LASIX 80 MG IV ×2 (09:01→16:23)
[2023-11-18] MEDS: ProAmatine 10 MG PO ×2 (09:01→20:14)
[2023-11-18] MEDS: THERAGRAN 1 TABLET PO (09:03)
[2023-11-18] MEDS: FARXIGA 10 MG PO (09:03)
[2023-11-18] MEDS: VISBIOME 2 CAP PO (09:03)
[2023-11-18] MEDS: KCL 40 MEQ PO ×2 (09:03→20:13)
[2023-11-18] MEDS: SENOKOT-S 1 TABLET PO ×2 (09:03→20:13)
[2023-11-18] MEDS: ALDACTONE 25 MG PO (09:04)
[2023-11-18] MEDS: ELIQUIS 5 MG PO ×2 (09:04→20:13)
[2023-11-18] MEDS: ORAJEL 10% GEL 1 APPLIC TOPICAL ×3 (09:04→21:10)
[2023-11-18] MEDS: DESITIN MAXIMUM STRENGTH PASTE 1 APPLIC TOPICAL ×2 (09:05→20:15)
[2023-11-18] MEDS: PROTONIX PO (09:06)
--- NOTE | 2023-11-18 09:40 | W.PN.CD ---
Today's Communication / Plan
-
IV diuresis
Impression / Plan
-
Background: 68F with morbid obesity, permanent atrial fibrillation/atrial tachycardia s/p AVN ablation and PPM, moderate/severe calcific mitral stenosis admitted with HFmEF.
Train Operator: Dr. Montes
HFmEF/NICMO, Acute on chronic
-Severe, requiring hospitalization, slowing improving
-On Lasix 80 BID,
-continue (this requires intensive monitoring of BMP, I/O, and daily weight)
-Metolazone on 11/11 and 11/14/2023, weight down, will given another dose of metolazone 11/16/23, extra dose today as well November 16
-Weight is down; this is her lowest recorded weight, and we need to reset dry weight, looking at weight trneds likely somewhere around 230?
-Continue spironolactone
-She did not have coverage for SGLT2i. => Case management confirmed
-RHC 11/10/2023 PCWP of 36 mmHg.
Atrial tachycardia
Atrial fibrillation, permanent
-Chronic, stable.
-S/P AV node ablation/pacemaker; residual ASD from EP procedure noted on RHC yesterday.
-[id number] 6 (age1, HF, HTN, female, hx CVA).
-Continue apixaban for therapeutic anticoagulation.
Hyponatremia:
-suspect hypervolemic hyponatremia
-she has been in this range for a while, but I suspect chronically volume overloaded
-will watch with diuresis
Hypotension, improved on midodrine.
Obesity, morbid Chronic, stable.
Chronic severe ambulatory dysfxn
Subjective/Interval History:
Breathing continues to improve
DATA:
Right heart cath 11/10/2023:
Weight (kg):108.6
PA (s/d/x mmHg): 73/40/51
PCWP (a/v/x mmHg): 48/61/36
RV (s/x mmHg): 70/13
RA (a/v/x mmHg): 19//14
SVC SvO2 (%):52.1
IVC SvO2 (%):56.8
RA SvO2 (%):68.9
RV SvO2 (%):68.8
PA SvO2 (%):65.8
MVO2 (%):53.28
SaO2 (%):98.0 (assumed)
Hbg (g/dL):12.5
Qp:Qs:1.39
Caryl
CO (liters/minute):2.52
CI (liters/minute/m2):1.24
Thermodilution
CO (liters/minute):Not performed.
CI (liters/minute/m2):Not performed.
TPG (mmHg):15
PVR (Multani Units):5.95
AVO2 Difference (Volume %): 8.95
CONCLUSION:
1. Severely elevated filling pressures (PCWP = 36 mmHg at 108.6 kg).
2. Severe precapillary and postcapillary pulmonary hypertension (mean PA pressure 51 mmHg, PCWP = 36 mmHg, PVR = 5.95 Multani units).
3. Significant left to right shunt at the level of the atrium (QP:QS = 1.39), likely residual ASD from prior EP procedure.
4. Severely depressed cardiac index (1.24 L/min/m�).
5. Previously documented moderate to severe calcific mitral valve stenosis.
TTE, 11/01/2023:
CONCLUSIONS
Mildly reduced left ventricular systolic function.
Hypokinesis of the septal wall, LV ejection fraction is 45% by Scherer's
method of discs.
Enlarged right ventricular size with reduced systolic function.
Moderate mitral stenosis.
Mild to moderate aortic stenosis.
Compared to previous echo images 07/26/23, the ejection fraction is similar to
slightly worse with more significant septal hypokinesis.
Left atrial Pressure: 09/22/22 (PVI), weight 136.5 kg
Pre-Procedure: Mean LA pressure was 17mmHg
Post-Procedure: Mean LA pressure was 21mmHg
Post-Procedure: Mean RA pressure was 16mmHg
Cath 06/23/22:
CONCLUSIONS:
1. Left dominant circulation with no coronary artery disease.
2. Probably severe mitral valve stenosis (mean gradient 11.1 mmHg, mitral valve area 1.43).
3. Severely elevated filling pressures (LVEDP = 24 mmHg, PCWP = 42 mmHg at 147.0 kg).
4. At least moderate pulmonary hypertension, WHO group 2.
5. Concordance on simultaneous LV/PA and LV/RV tracings.
Physical Exam
Vital Signs/Labs
Vital Signs
Temp Pulse Resp BP Pulse Ox
98.0 F 71 18 101/62 97
11/19/23 07:12 11/19/23 08:20 11/19/23 08:20 11/19/23 07:12 11/19/23 08:20
11/18/23 11/19/23 11/20/23
06:59 06:59 06:59
Actual Weight 234 lb 14.4 oz 236 lb 3.2 oz
11/19/23 07:27
11/19/23 07:27
Magnesium 2.1 mg/dl (1.6-2.3) 11/19/23 07:27
10/30/23 11/04/23 11/08/23
21:09 10:17 07:52
[id number] Pept [id number]
Physical Exam
Constitutional: No acute distress
EENT: Anicteric
Cardiovascular: Pedal edema is absent and Rhythm/rate is irregular
Respiratory: Respiratory effort normal
GI: Soft
Neuro/Psych: AO x 3
Data Reviewed
-
Date of Service: November 19, 2023
Echo: Report Reviewed by me
Labs: Labs Reviewed by me
--- NOTE | 2023-11-18 11:54 | CM ---
Addendum entered by Gerri Johnson 11/18/23 14:37:
Per therapist, Patient declined to participate in PT/OT session today; citing generalized fatigue. PT/OT will try again tomorrow
Discharge over the weekend pending authorization approval and be availability
Alicia from Rehab notified
Addendum entered by Gerri Johnson 11/18/23 14:12:
Per Alicia, bed is available at [facility] tomorrow, 11/19/23.
Will submit Auth to [facility]
Facility NPI # [id number]
Provider, Dr. Evans; NPI # [id number]
Requested PT/OT evaluations and notes arianna today
Addendum entered by Gerri Johnson 11/18/23 13:43:
Per Stacey, no bed available @ [facility]
Waiting to hear from Alicia if a bed is available at [facility]
Original Note:
Met with patient at bedside to discuss discharge plan; explained that bed availability status at [facility] is pending
Plan: Discharge to SNF pending bed availability and insurance authorization approval
[2023-11-18 15:49] VITALS: BP 110/62
[2023-11-18 16:54] LABS: Hematocrit 41.8 % (37.0-47.0); Hemoglobin 13.7 g/dL (12.0-16.0); Mean Corp Hgb Conc. 32.8 g/dL (33.0-37.0); Mean Corpuscular Hgb 30.6 pg (27.0-31.0); Mean Corpuscular Volume 93.3 fL (81.0-99.0); Mean Platelet Volume 9.5 fL (7.4-10.4); Platelet Count 408 10^3/uL (130-400); Red Blood Cell Count 4.48 10^6/uL (4.20-5.40); Red Cell Dist. Width 16.3 % (11.5-14.5); White Blood Cell Count 10.6 10^3/uL (4.8-10.8)
[2023-11-18 17:13] LABS: Blood Urea Nitrogen 36 mg/dl (7-17); Calcium 9.4 mg/dl (8.4-10.2); Carbon Dioxide 31 mmol/L (22-30); Chloride 85 mmol/L (98-107); Estimated Creatinine Clearance 60 ml/min; Glucose 244 mg/dl (70-99); Phosphorus 3.8 mg/dl (2.5-4.5); Potassium 3.6 mmol/L (3.5-5.1); Sodium 126 mmol/L (135-145); eGFR > 60.00
[2023-11-18] MEDS: PROTONIX 40 MG PO (20:12)
[2023-11-18] MEDS: CRESTOR 20 MG PO (21:10)
[2023-11-18] MEDS: SINGULAIR 10 MG PO (21:10)
[2023-11-18] MEDS: MUCINEX 600 MG PO (21:10)
[2023-11-18 23:11] VITALS: BP 124/71
[2023-11-18] MEDS: BENADRYL 25 MG PO (23:59)
[2023-11-19 06:00] VITALS: BMI 44.7
[2023-11-19 07:12] VITALS: BP 101/62
--- NOTE | 2023-11-19 07:31 | W.PN.HOSP.TC ---
Today's Communication/Plan
-
diuresis as per Cardio
PT/OT
trial bedtime Gabapentin for bedtime Pruritus
Assessment / Plan
Assessment / Plan
HPI: 68 y/o female with persistent AFIB on Eliquis, hx PVI 2022- repeat 02/2023, pacemaker and AVN ablation 08/2023, HFpEF, moderate MS, HTN, CVA 1988, breast cancer 2010 with hx chemo/surgery/radiation, obesity, lymphedema. Patient with recent
hospitalization and subsequent discharge 10/22/23. patient was reported to have black stools and had endoscopy and colonoscopy 10/15/2023 evidence of esophagitis. Anticoagulation was resumed. Patient did receive additional IV Lasix for treatment of
heart failure during that admission and was transition to Lasix 80 mg daily. She states she is compliant with her medications her weights have not changed.
#Acute heart failure with reduced ejection fraction
#Shortness of breath
Appreciate cardiology input, 11/09 RHC shows severely elevated filling pressures
Continue Lasix 80 mg IV twice daily.
metolazone prn as per Cardio
Continue spironolactone.
PT rec SNF vs home PT. Lives alone, WC bound for years though was able to ambulate w walker during PT recently
pt agreeable to SNF rehab prior to returning home
#Hyponatremia
TSH and cortisol normal
Sodium improved 130s
Continue fluid restriction, trend sodium
#Acute on Chronic hypoxic respiratory failure baseline 2L
Due to heart failure exacerbation possible pna
Currently on 2 L of oxygen, her baseline
Incentive spirometer
#Mouth sores
Started Orajel 11/12
#Hypokalemia
Repleted and resolved
#Possible superimposed PNA
Persistent Leukocytosis
Procal elevated
Status post 7 days of Augmentin
#Allergic asthma
#Chronic cough
#Suspected obstructive sleep apnea
Continue Singulair, bronchodilators
#Permanent atrial fibrillation as per cardio
Status post AV chris ablation with pacemaker
Continue Eliquis
#Esophagitis
Continue PPI twice daily for 2 months after EGD on 10/14, then daily
Continue Carafate
#Chronic ambulatory dysfunction
She uses a wheelchair at baseline, lives alone
Will need home care upon discharge
#Chronic hypotension
Continue midodrine 10 mg twice a day
#History of stroke
Continue statin
#Morbid obesity due to excess calories
Affects all aspects of care
#History of breast cancer
Status post chemo/surgery/radiation
#Constipation
cont bowel regimen
suppository prn
#reports Hemorrhoid pain
completed 7 days Anusol
#Hypokalemia
monitor and replete as necessary
#Bedtime Pruritus
Trial Gabapentin bedtime
DVT prophylaxis�Eliquis
Full code
Total time spent to see the patient on the floor, examine the patient, review data and lab results, discuss treatment plan with patient, nursing staff around 40 minutes.
Physical Exam
General: Morbidly obese, no acute distress
HEENT: Normocephalic, Atraumatic, EOMI, MMM
Respiratory: Diminished breath sounds at the bases
Cardiac: Normal S1/S2, Regular Rate and Rhythm
GI: Soft, Nontender, Nondistended, Normal Bowel Sounds
Extremities: No Clubbing, Cyanosis, or Edema
Neuro: Nonfocal/Grossly Intact
Psych: Calm, Cooperative
Anticipated Discharge: 24 - 48 hours
Subjective/Interval History
-
Date of Service: November 19, 2023
no acute distress
Objective Data
-
Labs:
Laboratory Results
11/19/23
07:27
WBC Pending
Hgb Pending
Hct Pending
Plt Count Pending
Sodium Pending
Potassium Pending
Chloride Pending
Carbon Dioxide Pending
BUN Pending
Creatinine Pending
Glucose Pending
Calcium Pending
Vital Signs:
Vital Signs
Temp Pulse Resp BP Pulse Ox
98.9 F 73 18 124/71 97
11/18/23 23:11 11/18/23 23:11 11/18/23 23:11 11/18/23 23:11 11/18/23 23:11
I&O
11/18/23 11/19/23 11/20/23
06:59 06:59 06:59
Intake Total 820 / 820 1680 / 1680
Balance 820 / 820 1680 / 1680
[2023-11-19 08:08] LABS: Hematocrit 40.8 % (37.0-47.0); Hemoglobin 13.4 g/dL (12.0-16.0); Mean Corp Hgb Conc. 32.8 g/dL (33.0-37.0); Mean Corpuscular Hgb 30.2 pg (27.0-31.0); Mean Corpuscular Volume 91.9 fL (81.0-99.0); Mean Platelet Volume 9.8 fL (7.4-10.4); Platelet Count 388 10^3/uL (130-400); Red Blood Cell Count 4.44 10^6/uL (4.20-5.40); White Blood Cell Count 10.7 10^3/uL (4.8-10.8)
[2023-11-19] MEDS: ADVAIR HFA 115/21 MCG INHALER 2 PUFF INH ×2 (08:16→17:57)
[2023-11-19 08:24] LABS: Blood Urea Nitrogen 39 mg/dl (7-17); Calcium 9.8 mg/dl (8.4-10.2); Carbon Dioxide 31 mmol/L (22-30); Chloride 85 mmol/L (98-107); Estimated Creatinine Clearance 67 ml/min; Glucose 126 mg/dl (70-99); Magnesium 2.1 mg/dl (1.6-2.3); Phosphorus 3.6 mg/dl (2.5-4.5); Potassium 3.8 mmol/L (3.5-5.1); Sodium 127 mmol/L (135-145); eGFR > 60.00
[2023-11-19] MEDS: LASIX 80 MG IV ×2 (09:40→15:53)
[2023-11-19] MEDS: MIRALAX 17 GRAMS PO (09:41)
[2023-11-19] MEDS: VISBIOME 2 CAP PO (09:41)
[2023-11-19] MEDS: FARXIGA 10 MG PO (09:41)
[2023-11-19] MEDS: ORAJEL 10% GEL TOPICAL ×2 (09:41→10:00)
[2023-11-19] MEDS: CARAFATE 1 GRAM PO (09:42)
[2023-11-19] MEDS: THERAGRAN 1 TABLET PO (09:42)
[2023-11-19] MEDS: KCL 40 MEQ PO ×2 (09:42→20:20)
[2023-11-19] MEDS: ELIQUIS 5 MG PO ×2 (09:42→20:20)
[2023-11-19] MEDS: PROTONIX 40 MG PO ×2 (09:42→20:20)
[2023-11-19] MEDS: ProAmatine 10 MG PO ×2 (09:43→20:20)
[2023-11-19] MEDS: ALDACTONE 25 MG PO (09:44)
[2023-11-19] MEDS: SENOKOT-S 1 TABLET PO ×2 (09:44→20:20)
[2023-11-19] MEDS: DESITIN MAXIMUM STRENGTH PASTE 1 APPLIC TOPICAL ×2 (09:44→20:20)
[2023-11-19 11:12] VITALS: BP 102/71; PULSE 71; O2SAT 97
[2023-11-19 11:14] VITALS: BP 102/71; PULSE 71; O2SAT 97
--- NOTE | 2023-11-19 11:39 | CM ---
Addendum entered by Keya Giordano 11/19/23 16:27:
TC from [place]
Authorization approved for skilled rehab.
Start date 11/20/23, NRD 11/23/23
Auth# [id number]
updates to Mohini Landry
Addendum entered by Keya Giordano 11/19/23 14:41:
ambulance transport forms on chart.
Addendum entered by Keya Giordano 11/19/23 13:01:
IMM completed.
Addendum entered by Keya Giordano 11/19/23 12:09:
Per Alicia, bed is available at [facility] tomorrow, 11/20/23.
Authorization for [facility] initiated with [facility] p# [phone], spoke with Karolina
Facility NPI # [id number]
Provider, Dr. Evans; NPI # [id number]
Pended Reference #[id number]
Clinicals faxed to [phone]
patient will require ambulance transport.
Original Note:
Patient seen bedside.
Continue IV diuresis.
PT/OT recommending skilled rehab.
Bed available at [facility], will need auth once medically stable.
Plan: skilled rehab once stable and insurance auth obtained.
--- NOTE | 2023-11-19 12:20 | W.PN.CD ---
Today's Communication / Plan
-
extra 80 mg IV this evening
Impression / Plan
-
Background: 68F with morbid obesity, permanent atrial fibrillation/atrial tachycardia s/p AVN ablation and PPM, moderate/severe calcific mitral stenosis admitted with HFmEF.
Pathology Supervisor: Dr. Montes
HFmEF/NICMO, Acute on chronic
-Severe, requiring hospitalization, slowing improving
-On Lasix 80 BID will add extra 80 mg IV November 18
-continue (this requires intensive monitoring of BMP, I/O, and daily weight)
-Metolazone on 11/11 and 11/14/2023, weight down, will given another dose of metolazone 11/16/23, extra dose today as well November 16
-Weight is down; this is her lowest recorded weight, and we need to reset dry weight, looking at weight trneds likely somewhere around 230?
-Continue spironolactone
-She did not have coverage for SGLT2i. => Case management confirmed
-RHC 11/10/2023 PCWP of 36 mmHg.
Atrial tachycardia
Atrial fibrillation, permanent
-Chronic, stable.
-S/P AV node ablation/pacemaker; residual ASD from EP procedure noted on RHC yesterday.
-[id number] 6 (age1, HF, HTN, female, hx CVA).
-Continue apixaban for therapeutic anticoagulation.
Hyponatremia:
-suspect hypervolemic hyponatremia
-she has been in this range for a while, but I suspect chronically volume overloaded
-will watch with diuresis
Hypotension, improved on midodrine.
Obesity, morbid Chronic, stable.
Chronic severe ambulatory dysfxn
Subjective/Interval History:
Breathing continues to improve
DATA:
Right heart cath 11/10/2023:
Weight (kg):108.6
PA (s/d/x mmHg): 73/40/51
PCWP (a/v/x mmHg): 48/61/36
RV (s/x mmHg): 70/13
RA (a/v/x mmHg): //
SVC SvO2 (%):52.1
IVC SvO2 (%):56.8
RA SvO2 (%):68.9
RV SvO2 (%):68.8
PA SvO2 (%):65.8
MVO2 (%):53.28
SaO2 (%):98.0 (assumed)
Hbg (g/dL):12.5
Qp:Qs:1.39
Caryl
CO (liters/minute):2.52
CI (liters/minute/m2):1.24
Thermodilution
CO (liters/minute):Not performed.
CI (liters/minute/m2):Not performed.
TPG (mmHg):15
PVR (Multani Units):5.95
AVO2 Difference (Volume %): 8.95
CONCLUSION:
1. Severely elevated filling pressures (PCWP = 36 mmHg at 108.6 kg).
2. Severe precapillary and postcapillary pulmonary hypertension (mean PA pressure 51 mmHg, PCWP = 36 mmHg, PVR = 5.95 Multani units).
3. Significant left to right shunt at the level of the atrium (QP:QS = 1.39), likely residual ASD from prior EP procedure.
4. Severely depressed cardiac index (1.24 L/min/m�).
5. Previously documented moderate to severe calcific mitral valve stenosis.
TTE, 11/01/2023:
CONCLUSIONS
Mildly reduced left ventricular systolic function.
Hypokinesis of the septal wall, LV ejection fraction is 45% by Scherer's
method of discs.
Enlarged right ventricular size with reduced systolic function.
Moderate mitral stenosis.
Mild to moderate aortic stenosis.
Compared to previous echo images 07/26/23, the ejection fraction is similar to
slightly worse with more significant septal hypokinesis.
Left atrial Pressure: 09/22/22 (PVI), weight 136.5 kg
Pre-Procedure: Mean LA pressure was 17mmHg
Post-Procedure: Mean LA pressure was 21mmHg
Post-Procedure: Mean RA pressure was 16mmHg
Cath 06/23/22:
CONCLUSIONS:
1. Left dominant circulation with no coronary artery disease.
2. Probably severe mitral valve stenosis (mean gradient 11.1 mmHg, mitral valve area 1.43).
3. Severely elevated filling pressures (LVEDP = 24 mmHg, PCWP = 42 mmHg at 147.0 kg).
4. At least moderate pulmonary hypertension, WHO group 2.
5. Concordance on simultaneous LV/PA and LV/RV tracings.
Physical Exam
Vital Signs/Labs
Vital Signs
Temp Pulse Resp BP Pulse Ox
98.0 F 71 18 101/62 97
11/19/23 07:12 11/19/23 08:20 11/19/23 08:20 11/19/23 07:12 11/19/23 08:20
11/18/23 11/19/23 11/20/23
06:59 06:59 06:59
Actual Weight 234 lb 14.4 oz 236 lb 3.2 oz
11/19/23 07:27
11/19/23 07:27
Magnesium 2.1 mg/dl (1.6-2.3) 11/19/23 07:27
10/30/23 11/04/23 11/08/23
21:09 10:17 07:52
Dao-M-Elhxiesgmpx Pept [phone]
Physical Exam
Constitutional: No acute distress and Comfortable
Cardiovascular: Rhythm/rate is irregular
Respiratory: Respiratory effort normal and Lungs clear to auscul.
GI: Soft
Neuro/Psych: AO x 3
Data Reviewed
-
Date of Service: November 19, 2023
Echo: Report Reviewed by me
Labs: Labs Reviewed by me
[2023-11-19 15:19] VITALS: BP 107/59
[2023-11-19] MEDS: CARAFATE PO ×2 (15:53→16:16)
[2023-11-19] MEDS: SINGULAIR 10 MG PO (22:15)
[2023-11-19] MEDS: MUCINEX 600 MG PO (22:15)
[2023-11-19] MEDS: CRESTOR 20 MG PO (22:15)
[2023-11-19] MEDS: NEURONTIN 300 MG PO (22:15)
[2023-11-19 22:53] VITALS: BP 101/69
[2023-11-20] MEDS: LASIX 80 MG IV ×2 (00:05→08:48)
[2023-11-20 06:00] VITALS: BMI 43.9
[2023-11-20] MEDS: CARAFATE 1 GRAM PO ×2 (06:16→16:12)
[2023-11-20 07:00] VITALS: BP 105/62
--- NOTE | 2023-11-20 07:10 | W.PN.HOSP.TC ---
Today's Communication/Plan
-
diuresis tolvaptan as per cardio
cont bedtime gabapentin
PT/OT
discharge planning SNF rehab
Assessment / Plan
Assessment / Plan
HPI: 68 y/o female with persistent AFIB on Eliquis, hx PVI 2022- repeat 02/2023, pacemaker and AVN ablation 08/2023, HFpEF, moderate MS, HTN, CVA 1988, breast cancer 2010 with hx chemo/surgery/radiation, obesity, lymphedema. Patient with recent
hospitalization and subsequent discharge 10/22/23. patient was reported to have black stools and had endoscopy and colonoscopy 10/15/2023 evidence of esophagitis. Anticoagulation was resumed. Patient did receive additional IV Lasix for treatment of
heart failure during that admission and was transition to Lasix 80 mg daily. She states she is compliant with her medications her weights have not changed.
#Acute heart failure with reduced ejection fraction
#Shortness of breath
Appreciate cardiology input, 11/09 RHC shows severely elevated filling pressures
Lasix 80 mg IV twice daily switched to PO as per Cardio
metolazone prn as per Cardio
Continue spironolactone.
PT rec SNF vs home PT. Lives alone, WC bound for years though was able to ambulate w walker during PT recently
pt agreeable to SNF rehab prior to returning home
#Hyponatremia
TSH and cortisol normal
Sodium improved 130s
Continue fluid restriction, trend sodium
tolvaptan as per cardio
#Acute on Chronic hypoxic respiratory failure baseline 2L
Due to heart failure exacerbation possible pna
Currently on 2 L of oxygen, her baseline
Incentive spirometer
#Mouth sores
Started Orajel 11/12
#Hypokalemia
Repleted and resolved
#Possible superimposed PNA
Persistent Leukocytosis
Procal elevated
Status post 7 days of Augmentin
#Allergic asthma
#Chronic cough
#Suspected obstructive sleep apnea
Continue Singulair, bronchodilators
#Permanent atrial fibrillation as per cardio
Status post AV chris ablation with pacemaker
Continue Eliquis
#Esophagitis
Continue PPI twice daily for 2 months after EGD on 10/14, then daily
Continue Carafate
#Chronic ambulatory dysfunction
She uses a wheelchair at baseline, lives alone
Will need home care upon discharge
#Chronic hypotension
Continue midodrine 10 mg twice a day
#History of stroke
Continue statin
#Morbid obesity due to excess calories
Affects all aspects of care
#History of breast cancer
Status post chemo/surgery/radiation
#Constipation
cont bowel regimen
suppository prn
#reports Hemorrhoid pain
completed 7 days Anusol
#Hypokalemia
monitor and replete as necessary
#Bedtime Pruritus
Resolved with gabapentin
DVT prophylaxis�Eliquis
Full code
Total time spent to see the patient on the floor, examine the patient, review data and lab results, discuss treatment plan with patient, nursing staff around 40 minutes.
Physical Exam
General: Morbidly obese, no acute distress
HEENT: Normocephalic, Atraumatic, EOMI, MMM
Respiratory: Diminished breath sounds at the bases
Cardiac: Normal S1/S2, Regular Rate and Rhythm
GI: Soft, Nontender, Nondistended, Normal Bowel Sounds
Extremities: No Clubbing, Cyanosis, or Edema
Neuro: Nonfocal/Grossly Intact
Psych: Calm, Cooperative
Anticipated Discharge: 24 - 48 hours
Subjective/Interval History
-
Date of Service: November 20, 2023
Reports feeling well. Resolution of itching at night with bedtime Gabapentin.
Objective Data
-
Labs:
Laboratory Results
11/20/23 11/20/23
06:45 06:46
WBC Pending
Hgb Pending
Hct Pending
Plt Count Pending
Sodium Pending
Potassium Pending
Chloride Pending
Carbon Dioxide Pending
BUN Pending
Creatinine Pending
Glucose Pending
Calcium Pending
Vital Signs:
Vital Signs
Temp Pulse Resp BP Pulse Ox
98.2 F 71 19 107/68 96
11/19/23 22:53 11/20/23 00:05 11/19/23 22:53 11/20/23 00:05 11/19/23 23:57
I&O
11/19/23 11/20/23 11/21/23
06:59 06:59 06:59
Intake Total 1680 / 1680 1020 / 1020
Balance 1680 / 1680 1020 / 1020
[2023-11-20 08:01] VITALS: BP 105/62
[2023-11-20 08:20] LABS: Hematocrit 41.4 % (37.0-47.0); Mean Corp Hgb Conc. 33.8 g/dL (33.0-37.0); Mean Corpuscular Hgb 30.4 pg (27.0-31.0); Mean Platelet Volume 9.7 fL (7.4-10.4); Platelet Count 401 10^3/uL (130-400); Red Cell Dist. Width 16.1 % (11.5-14.5); White Blood Cell Count 9.9 10^3/uL (4.8-10.8)
[2023-11-20] MEDS: ADVAIR HFA 115/21 MCG INHALER 2 PUFF INH ×2 (08:21→18:20)
[2023-11-20 08:35] LABS: Blood Urea Nitrogen 41 mg/dl (7-17); Calcium 9.6 mg/dl (8.4-10.2); Carbon Dioxide 31 mmol/L (22-30); Chloride 84 mmol/L (98-107); Estimated Creatinine Clearance 59 ml/min; Glucose 126 mg/dl (70-99); Phosphorus 4.6 mg/dl (2.5-4.5); Potassium 3.6 mmol/L (3.5-5.1); Sodium 128 mmol/L (135-145); eGFR > 60.00
[2023-11-20] MEDS: MIRALAX 17 GRAMS PO (08:46)
[2023-11-20] MEDS: ALDACTONE 25 MG PO (08:47)
[2023-11-20] MEDS: THERAGRAN 1 TABLET PO (08:47)
[2023-11-20] MEDS: SENOKOT-S 1 TABLET PO ×2 (08:48→20:17)
[2023-11-20] MEDS: KCL 40 MEQ PO ×2 (08:48→20:17)
[2023-11-20] MEDS: PROTONIX 40 MG PO ×2 (08:48→20:17)
[2023-11-20] MEDS: ProAmatine 10 MG PO ×2 (08:48→20:17)
[2023-11-20] MEDS: FARXIGA 10 MG PO (08:48)
[2023-11-20] MEDS: ELIQUIS 5 MG PO ×2 (08:48→20:17)
[2023-11-20] MEDS: VISBIOME 2 CAP PO (08:48)
[2023-11-20] MEDS: DESITIN MAXIMUM STRENGTH PASTE 1 APPLIC TOPICAL ×2 (08:50→20:16)
--- NOTE | 2023-11-20 08:58 | W.PN.CD ---
Today's Communication / Plan
-
-Will transition to Lasix 80 mg PO twice daily.
-Will give a dose of tolvaptan this morning (15 mg) and reassess tomorrow.
Impression / Plan
-
Background: 68F with morbid obesity, permanent atrial fibrillation/atrial tachycardia s/p AVN ablation and PPM, moderate/severe calcific mitral stenosis admitted with HFmEF.
Portfolio Lead: Dr. Montes
HFmEF/NICMO, Acute on chronic
-Volume status/rate improving.
-Metolazone on 11/11 and 11/14/2023, weight down, will given another dose of metolazone 11/16/23, extra dose today as well November 16
-Weight is down; this is her lowest recorded weight, and we need to reset dry weight, looking at weight trneds likely somewhere around 230?
-Continue spironolactone
-She did not have coverage for SGLT2i. => Case management confirmed
-RHC 11/10/2023 PCWP of 36 mmHg.
-Will transition to Lasix 80 mg PO twice daily.
Atrial fibrillation, permanent
-Chronic, stable.
-S/P AV node ablation/pacemaker; residual ASD from EP procedure noted on RHC.
-[id number] 6 (age1, HF, HTN, female, hx CVA).
-Continue apixaban.
Hyponatremia:
-suspect hypervolemic hyponatremia
-Will give a dose of tolvaptan this morning (15 mg) and reassess tomorrow.
Hypotension:
-Improved on midodrine; continue.
Obesity, morbid Chronic:
-Weight loss recommended.
Chronic severe ambulatory dysfxn
Subjective/Interval History:
No major events overnight. Shortness of breath continues to improve.
DATA:
Right heart cath 11/10/2023:
Weight (kg):108.6
PA (s/d/x mmHg): 73/40/51
PCWP (a/v/x mmHg): 48/61/36
RV (s/x mmHg): 70/13
RA (a/v/x mmHg): 19/17/14
SVC SvO2 (%):52.1
IVC SvO2 (%):56.8
RA SvO2 (%):68.9
RV SvO2 (%):68.8
PA SvO2 (%):65.8
MVO2 (%):53.28
SaO2 (%):98.0 (assumed)
Hbg (g/dL):12.5
Qp:Qs:1.39
Caryl
CO (liters/minute):2.52
CI (liters/minute/m2):1.24
Thermodilution
CO (liters/minute):Not performed.
CI (liters/minute/m2):Not performed.
TPG (mmHg):15
PVR (Multani Units):5.95
AVO2 Difference (Volume %): 8.95
CONCLUSION:
1. Severely elevated filling pressures (PCWP = 36 mmHg at 108.6 kg).
2. Severe precapillary and postcapillary pulmonary hypertension (mean PA pressure 51 mmHg, PCWP = 36 mmHg, PVR = 5.95 Multani units).
3. Significant left to right shunt at the level of the atrium (QP:QS = 1.39), likely residual ASD from prior EP procedure.
4. Severely depressed cardiac index (1.24 L/min/m�).
5. Previously documented moderate to severe calcific mitral valve stenosis.
TTE, 11/01/2023:
CONCLUSIONS
Mildly reduced left ventricular systolic function.
Hypokinesis of the septal wall, LV ejection fraction is 45% by Scherer's
method of discs.
Enlarged right ventricular size with reduced systolic function.
Moderate mitral stenosis.
Mild to moderate aortic stenosis.
Compared to previous echo images 07/26/23, the ejection fraction is similar to
slightly worse with more significant septal hypokinesis.
Left atrial Pressure: 09/22/22 (PVI), weight 136.5 kg
Pre-Procedure: Mean LA pressure was 17mmHg
Post-Procedure: Mean LA pressure was 21mmHg
Post-Procedure: Mean RA pressure was 16mmHg
Cath 06/23/22:
CONCLUSIONS:
1. Left dominant circulation with no coronary artery disease.
2. Probably severe mitral valve stenosis (mean gradient 11.1 mmHg, mitral valve area 1.43).
3. Severely elevated filling pressures (LVEDP = 24 mmHg, PCWP = 42 mmHg at 147.0 kg).
4. At least moderate pulmonary hypertension, WHO group 2.
5. Concordance on simultaneous LV/PA and LV/RV tracings.
Physical Exam
Vital Signs/Labs
Vital Signs
Temp Pulse Resp BP Pulse Ox
97.4 F 71 16 105/62 97
11/20/23 07:00 11/20/23 08:24 11/20/23 08:24 11/20/23 07:00 11/20/23 08:24
11/19/23 11/20/23 11/21/23
06:59 06:59 06:59
Actual Weight 107.139 kg 105.233 kg
11/20/23 06:45
11/20/23 06:46
Magnesium 2.0 mg/dl (1.6-2.3) 11/20/23 06:46
10/30/23 11/04/23 11/08/23
21:09 10:17 07:52
Wuy-M-Kywwrhgwjah Pept [phone] [id number]
Physical Exam
Constitutional: No acute distress and Comfortable
EENT: Anicteric
Cardiovascular: Pedal edema is absent, Rhythm/rate is irregular, Systolic murmur present (05/15) and S1S2 is normal
Respiratory: Respiratory effort normal, Wheeze Absent and Rhonchi Present (Bibasilar)
GI: Soft
Neuro/Psych: AO x 3
Other: Skin (Warm, dry)
Data Reviewed
-
Date of Service: November 20, 2023
Medical Tests (PFT, Pathology etc): Discussed with Patient
Labs: Labs Reviewed by me
[2023-11-20] MEDS: SAMSCA 15 MG PO (09:23)
[2023-11-20] MEDS: DULCOLAX 10 MG PO (12:04)
[2023-11-20 15:00] VITALS: BP 112/67
[2023-11-20] MEDS: LASIX 80 MG PO (16:12)
--- NOTE | 2023-11-20 16:18 | CHAP ---
Luciana greeted me with a smile - says she is doing okay, planning for transfer to [facility]. Looks forward to regaining muscle strength. Emotional and spiritual support provided.
[2023-11-20 19:50] VITALS: BP 103/67
[2023-11-20] MEDS: SINGULAIR 10 MG PO (21:21)
[2023-11-20] MEDS: MUCINEX 600 MG PO (21:21)
[2023-11-20] MEDS: CRESTOR 20 MG PO (21:21)
[2023-11-20] MEDS: NEURONTIN 300 MG PO (21:21)
[2023-11-20 23:36] VITALS: BP 155/98
[2023-11-21 06:00] VITALS: BMI 44.2
--- NOTE | 2023-11-21 06:59 | W.PN.HOSP.TC ---
Today's Communication/Plan
-
diuresis tolvaptan as per cardio
PT/OT
discharge planning SNF rehab
Assessment / Plan
Assessment / Plan
HPI: 68 y/o female with persistent AFIB on Eliquis, hx PVI 2022- repeat 02/2023, pacemaker and AVN ablation 08/2023, HFpEF, moderate MS, HTN, CVA 1988, breast cancer 2010 with hx chemo/surgery/radiation, obesity, lymphedema. Patient with recent
hospitalization and subsequent discharge 10/22/23. patient was reported to have black stools and had endoscopy and colonoscopy 10/15/2023 evidence of esophagitis. Anticoagulation was resumed. Patient did receive additional IV Lasix for treatment of
heart failure during that admission and was transition to Lasix 80 mg daily. She states she is compliant with her medications her weights have not changed.
#Acute heart failure with reduced ejection fraction
#Shortness of breath
Appreciate cardiology input, 11/09 RHC shows severely elevated filling pressures
Lasix 80 mg IV twice daily switched to PO as per Cardio
metolazone prn as per Cardio
Continue spironolactone.
PT rec SNF vs home PT. Lives alone, WC bound for years though was able to ambulate w walker during PT recently
pt agreeable to SNF rehab prior to returning home
#Hyponatremia
TSH and cortisol normal
Sodium improved 130s
Continue fluid restriction, trend sodium
tolvaptan as per cardio
#Acute on Chronic hypoxic respiratory failure baseline 2L
Due to heart failure exacerbation possible pna
Currently on 2 L of oxygen, her baseline
Incentive spirometer
#Mouth sores resolved
Orajel completed
#Hypokalemia
Repleted and resolved
#Possible superimposed PNA
Persistent Leukocytosis
Procal elevated
Status post 7 days of Augmentin
#Allergic asthma
#Chronic cough
#Suspected obstructive sleep apnea
Continue Singulair, bronchodilators
#Permanent atrial fibrillation as per cardio
Status post AV chris ablation with pacemaker
Continue Eliquis
#Esophagitis
Continue PPI twice daily for 2 months after EGD on 10/14, then daily
Continue Carafate
#Chronic ambulatory dysfunction
She uses a wheelchair at baseline, lives alone
agrees to SNF rehab before returning home
#Chronic hypotension
Continue midodrine 10 mg twice a day
#History of stroke
Continue statin
#Morbid obesity due to excess calories
Affects all aspects of care
#History of breast cancer
Status post chemo/surgery/radiation
#Constipation
cont bowel regimen
suppository prn
#reports Hemorrhoid pain
completed 7 days Anusol
#Hypokalemia
monitor and replete as necessary
#Bedtime Pruritus
Resolved with gabapentin bedtime, continue
DVT prophylaxis�Eliquis
Full code
Total time spent to see the patient on the floor, examine the patient, review data and lab results, discuss treatment plan with patient, nursing staff around 40 minutes.
Physical Exam
General: Morbidly obese, no acute distress
HEENT: Normocephalic, Atraumatic, EOMI, MMM
Respiratory: Diminished breath sounds at the bases
Cardiac: Normal S1/S2, Regular Rate and Rhythm
GI: Soft, Nontender, Nondistended, Normal Bowel Sounds
Extremities: No Clubbing, Cyanosis, or Edema
Neuro: Nonfocal/Grossly Intact
Psych: Calm, Cooperative
Anticipated Discharge: 24 - 48 hours
Subjective/Interval History
-
Date of Service: November 21, 2023
No acute distress resting comfortably in bed. Reports overall feeling well. Night time pruritus resolved since start of gabapentin.
Objective Data
-
Labs:
Laboratory Results
11/21/23
06:00
WBC Pending
Hgb Pending
Hct Pending
Plt Count Pending
Sodium Pending
Potassium Pending
Chloride Pending
Carbon Dioxide Pending
BUN Pending
Creatinine Pending
Glucose Pending
Calcium Pending
Vital Signs:
Vital Signs
Temp Pulse Resp BP Pulse Ox
97.9 F 72 18 155/98 96
11/20/23 23:36 11/20/23 23:36 11/20/23 23:36 11/20/23 23:36 11/20/23 23:36
I&O
11/19/23 11/20/23 11/21/23
06:59 06:59 06:59
Intake Total 1680 / 1680 1020 / 1020 960 / 960
Balance 1680 / 1680 1020 / 1020 960 / 960
[2023-11-21] MEDS: CARAFATE 1 GRAM PO ×2 (07:00→16:29)
[2023-11-21 07:15] VITALS: BP 118/66
[2023-11-21 07:54] LABS: Hematocrit 43.4 % (37.0-47.0); Hemoglobin 14.4 g/dL (12.0-16.0); Mean Corp Hgb Conc. 33.2 g/dL (33.0-37.0); Mean Corpuscular Hgb 30.6 pg (27.0-31.0); Mean Corpuscular Volume 92.1 fL (81.0-99.0); Mean Platelet Volume 9.8 fL (7.4-10.4); Platelet Count 392 10^3/uL (130-400); Red Blood Cell Count 4.71 10^6/uL (4.20-5.40); Red Cell Dist. Width 16.2 % (11.5-14.5); White Blood Cell Count 11.1 10^3/uL (4.8-10.8)
[2023-11-21] MEDS: ADVAIR HFA 115/21 MCG INHALER 2 PUFF INH ×2 (08:13→20:04)
[2023-11-21] MEDS: ALDACTONE 25 MG PO (08:20)
[2023-11-21] MEDS: KCL 40 MEQ PO ×2 (08:20→20:54)
[2023-11-21] MEDS: SENOKOT-S 1 TABLET PO ×2 (08:20→20:53)
[2023-11-21] MEDS: LASIX 80 MG PO ×2 (08:20→16:29)
[2023-11-21] MEDS: PROTONIX 40 MG PO ×2 (08:20→20:53)
[2023-11-21] MEDS: ELIQUIS 5 MG PO ×2 (08:20→20:53)
[2023-11-21] MEDS: FARXIGA 10 MG PO (08:20)
[2023-11-21] MEDS: VISBIOME 2 CAP PO (08:20)
[2023-11-21] MEDS: MIRALAX 17 GRAMS PO (08:20)
[2023-11-21] MEDS: THERAGRAN 1 TABLET PO (08:20)
[2023-11-21] MEDS: ProAmatine 10 MG PO ×2 (08:20→20:54)
[2023-11-21] MEDS: DESITIN MAXIMUM STRENGTH PASTE 1 APPLIC TOPICAL ×2 (08:21→20:52)
[2023-11-21 08:53] LABS: Blood Urea Nitrogen 42 mg/dl (7-17); Calcium 9.6 mg/dl (8.4-10.2); Carbon Dioxide 33 mmol/L (22-30); Chloride 84 mmol/L (98-107); Estimated Creatinine Clearance 60 ml/min; Glucose 208 mg/dl (70-99); Magnesium 1.8 mg/dl (1.6-2.3); Phosphorus 3.6 mg/dl (2.5-4.5); Potassium 4.2 mmol/L (3.5-5.1); Sodium 128 mmol/L (135-145); eGFR > 60.00
[2023-11-21] MEDS: SAMSCA 15 MG PO (10:03)
--- NOTE | 2023-11-21 12:26 | W.PN.CD ---
Today's Communication / Plan
-
-Transitioned to Lasix 80 mg PO twice daily; continue.
-Continue daily weights.
-Will give a second dose of tolvaptan this morning (15 mg); reassess tomorrow.
Impression / Plan
-
Background: 68F with morbid obesity, permanent atrial fibrillation/atrial tachycardia s/p AVN ablation and PPM, moderate/severe calcific mitral stenosis admitted with HFmEF.
Drum Filler: Dr. Montes
HFmEF/NICMO, Acute on chronic
-Volume status/rate improving.
-Metolazone on 11/11 and 11/14/2023, weight down, will given another dose of metolazone 11/16/23, extra dose today as well November 16
-Weight is down; this is her lowest recorded weight, and we need to reset dry weight, looking at weight trends likely somewhere around 230?
-Continue spironolactone
-She did not have coverage for SGLT2i. => Case management confirmed
-RHC 11/10/2023 PCWP of 36 mmHg.
-Transitioned to Lasix 80 mg PO twice daily; continue.
-Continue daily weights.
Atrial fibrillation, permanent
-Chronic, stable.
-S/P AV node ablation/pacemaker; residual ASD from EP procedure noted on RHC.
-[id number] 6 (age1, HF, HTN, female, hx CVA).
-Continue apixaban.
Hyponatremia:
-suspect hypervolemic hyponatremia
-Will give a second dose of tolvaptan this morning (15 mg); reassess tomorrow.
Hypotension:
-Improved on midodrine; continue.
Obesity, morbid Chronic:
-Weight loss recommended.
Chronic severe ambulatory dysfxn
Subjective/Interval History:
No major events overnight. No major cardiac complaints today.
DATA:
Right heart cath 11/10/2023:
Weight (kg):108.6
PA (s/d/x mmHg): 73/40/51
PCWP (a/v/x mmHg): 48/61/36
RV (s/x mmHg): 70/13
RA (a/v/x mmHg): 19/17/14
SVC SvO2 (%):52.1
IVC SvO2 (%):56.8
RA SvO2 (%):68.9
RV SvO2 (%):68.8
PA SvO2 (%):65.8
MVO2 (%):53.28
SaO2 (%):98.0 (assumed)
Hbg (g/dL):12.5
Qp:Qs:1.39
Caryl
CO (liters/minute):2.52
CI (liters/minute/m2):1.24
Thermodilution
CO (liters/minute):Not performed.
CI (liters/minute/m2):Not performed.
TPG (mmHg):15
PVR (Multani Units):5.95
AVO2 Difference (Volume %): 8.95
CONCLUSION:
1. Severely elevated filling pressures (PCWP = 36 mmHg at 108.6 kg).
2. Severe precapillary and postcapillary pulmonary hypertension (mean PA pressure 51 mmHg, PCWP = 36 mmHg, PVR = 5.95 Multani units).
3. Significant left to right shunt at the level of the atrium (QP:QS = 1.39), likely residual ASD from prior EP procedure.
4. Severely depressed cardiac index (1.24 L/min/m�).
5. Previously documented moderate to severe calcific mitral valve stenosis.
TTE, 11/01/2023:
CONCLUSIONS
Mildly reduced left ventricular systolic function.
Hypokinesis of the septal wall, LV ejection fraction is 45% by Scherer's
method of discs.
Enlarged right ventricular size with reduced systolic function.
Moderate mitral stenosis.
Mild to moderate aortic stenosis.
Compared to previous echo images 07/26/23, the ejection fraction is similar to
slightly worse with more significant septal hypokinesis.
Left atrial Pressure: 09/22/22 (PVI), weight 136.5 kg
Pre-Procedure: Mean LA pressure was 17mmHg
Post-Procedure: Mean LA pressure was 21mmHg
Post-Procedure: Mean RA pressure was 16mmHg
Cath 06/23/22:
CONCLUSIONS:
1. Left dominant circulation with no coronary artery disease.
2. Probably severe mitral valve stenosis (mean gradient 11.1 mmHg, mitral valve area 1.43).
3. Severely elevated filling pressures (LVEDP = 24 mmHg, PCWP = 42 mmHg at 147.0 kg).
4. At least moderate pulmonary hypertension, WHO group 2.
5. Concordance on simultaneous LV/PA and LV/RV tracings.
Physical Exam
Vital Signs/Labs
Vital Signs
Temp Pulse Resp BP Pulse Ox
97.7 F 71 16 118/66 98
11/21/23 07:15 11/21/23 08:17 11/21/23 08:17 11/21/23 07:15 11/21/23 08:17
11/20/23 11/21/23 11/22/23
06:59 06:59 06:59
Actual Weight 105.233 kg 106.005 kg
11/21/23 07:04
11/21/23 08:32
Magnesium 1.8 mg/dl (1.6-2.3) 11/21/23 08:32
10/30/23 11/04/23 11/08/23
21:09 10:17 07:52
Sso-M-Onufhnuxwnw Pept [id number] [id number]
Physical Exam
Constitutional: No acute distress and Comfortable
EENT: Anicteric
Cardiovascular: Rhythm & rate is regular, Pedal edema present (Trace), Systolic murmur present (/) and S1S2 is normal
Respiratory: Respiratory effort normal, Wheeze Absent and Rhonchi Present (Mild bibasilar)
GI: Soft
Neuro/Psych: AO x 3
Other: Skin (Warm, dry)
Data Reviewed
-
Date of Service: November 21, 2023
Medical Tests (PFT, Pathology etc): Discussed with Patient
Labs: Labs Reviewed by me
[2023-11-21 14:59] VITALS: BP 107/63
[2023-11-21] MEDS: NEURONTIN 300 MG PO (20:52)
[2023-11-21] MEDS: MUCINEX 600 MG PO (20:53)
[2023-11-21] MEDS: CRESTOR 20 MG PO (20:53)
[2023-11-21] MEDS: SINGULAIR 10 MG PO (20:53)
[2023-11-21 23:00] VITALS: BP 110/69
--- NOTE | 2023-11-22 04:35 | PTCARENOTE ---
Addendum entered by Perla Stafford RN 11/22/23 06:24:
Dentures were located in patient bed during last patient change after an episode of incontinence. Dentures as now with pt. at bedside. Will continue to monitor.
Original Note:
At approx 0400 pt. began ringing simon to let us know that she was unable to locate her dentures. This nurse, the patient auto care center manager, and one other staff nurse looked all around the room and in the bathroom and were unable to locate patient's
dentures. Patient auto care center manager stated that pt. normally calls at night when she wants to take her dentures out to have them placed in the denture cup, however pt. did not ask to remove her dentures on this particular shift. Patient stated that she was
not sure if she had taken them out and placed them on a dinner tray after she had her last meal. Room searched again by this nurse and no dentures were located. When asked when the last time patient remembered having her dentures in, she was unable
to say. Informed the pt. that we would follow up on this with a supervisor fryer farm in the AM. VSS at this time. Will continue to monitor.
[2023-11-22] MEDS: CARAFATE 1 GRAM PO (06:19)
[2023-11-22 07:00] VITALS: BP 90/56
[2023-11-22] MEDS: ADVAIR HFA 115/21 MCG INHALER 2 PUFF INH (07:41)
[2023-11-22 08:35] LABS: Hematocrit 43.9 % (37.0-47.0); Hemoglobin 14.3 g/dL (12.0-16.0); Mean Corp Hgb Conc. 32.6 g/dL (33.0-37.0); Mean Corpuscular Hgb 30.8 pg (27.0-31.0); Mean Corpuscular Volume 94.4 fL (81.0-99.0); Mean Platelet Volume 9.9 fL (7.4-10.4); Platelet Count 357 10^3/uL (130-400); Red Blood Cell Count 4.65 10^6/uL (4.20-5.40); Red Cell Dist. Width 16.2 % (11.5-14.5)
--- NOTE | 2023-11-22 09:20 | W.PN.HOSP.TC ---
Today's Communication/Plan
-
Discharge today
Assessment / Plan
Assessment / Plan
HPI: 68 y/o female with persistent AFIB on Eliquis, hx PVI 2022- repeat 02/2023, pacemaker and AVN ablation 08/2023, HFpEF, moderate MS, HTN, CVA 1988, breast cancer 2010 with hx chemo/surgery/radiation, obesity, lymphedema. Patient with recent
hospitalization and subsequent discharge 10/22/23. patient was reported to have black stools and had endoscopy and colonoscopy 10/15/2023 evidence of esophagitis. Anticoagulation was resumed. Patient did receive additional IV Lasix for treatment of
heart failure during that admission and was transition to Lasix 80 mg daily. She states she is compliant with her medications her weights have not changed.
#Acute heart failure with reduced ejection fraction
#Shortness of breath
Appreciate cardiology input, 11/09 RHC shows severely elevated filling pressures
Lasix 80 mg IV twice daily switched to PO as per Cardio
metolazone prn as per Cardio
Continue spironolactone.
PT rec SNF vs home PT. Lives alone, WC bound for years though was able to ambulate w walker during PT recently
Medically stable for discharge to short-term rehab, needs repeat BMP on 11/28
#Hyponatremia
TSH and cortisol normal
Sodium improved 130s
Continue fluid restriction, trend sodium
Tolvaptan as per cardio
#Acute on Chronic hypoxic respiratory failure baseline 2L
Due to heart failure exacerbation possible pna
Currently on 2 L of oxygen, her baseline
Incentive spirometer
#Mouth sores resolved
Orajel completed
#Hypokalemia
Repleted and resolved
#Possible superimposed PNA
Persistent Leukocytosis
Procal elevated
Status post 7 days of Augmentin
#Allergic asthma
#Chronic cough
#Suspected obstructive sleep apnea
Continue Singulair, bronchodilators
#Permanent atrial fibrillation as per cardio
Status post AV chris ablation with pacemaker
Continue Eliquis
#Esophagitis
Continue PPI twice daily for 2 months after EGD on 10/14, then daily
Continue Carafate
#Chronic ambulatory dysfunction
She uses a wheelchair at baseline, lives alone
agrees to SNF rehab before returning home
#Chronic hypotension
Continue midodrine 10 mg twice a day
#History of stroke
Continue statin
#Morbid obesity due to excess calories
Affects all aspects of care
#History of breast cancer
Status post chemo/surgery/radiation
#Constipation
cont bowel regimen
suppository prn
#reports Hemorrhoid pain
completed 7 days Anusol
#Hypokalemia
monitor and replete as necessary
#Bedtime Pruritus
Resolved with gabapentin bedtime, continue
DVT prophylaxis�Eliquis
Full code
Physical Exam
General: Morbidly obese, no acute distress
HEENT: Normocephalic, Atraumatic, EOMI, MMM
Respiratory: Diminished breath sounds at the bases
Cardiac: Normal S1/S2, Regular Rate and Rhythm
GI: Soft, Nontender, Nondistended, Normal Bowel Sounds
Extremities: No Clubbing, Cyanosis, or Edema
Neuro: Nonfocal/Grossly Intact
Psych: Calm, Cooperative
Anticipated Discharge: Today
Subjective/Interval History
-
Date of Service: November 22, 2023
Patient reports feeling well. Her breathing is at baseline. No chest pain. No fever, no vomiting.
Objective Data
-
Labs:
Laboratory Results
11/22/23
07:57
WBC 10.0
Hgb 14.3
Hct 43.9
Plt Count 357
Sodium Pending
Potassium Pending
Chloride Pending
Carbon Dioxide Pending
BUN Pending
Creatinine Pending
Glucose Pending
Calcium Pending
Vital Signs:
Vital Signs
Temp Pulse Resp BP Pulse Ox
97.6 F 74 16 90/56 97
11/22/23 07:00 11/22/23 07:45 11/22/23 07:45 11/22/23 07:00 11/22/23 07:45
I&O
11/21/23 11/22/23 11/23/23
06:59 06:59 06:59
Intake Total 960 / 960 440 / 440
Balance 960 / 960 440 / 440
[2023-11-22 09:22] LABS: Blood Urea Nitrogen 40 mg/dl (7-17); Calcium 9.7 mg/dl (8.4-10.2); Carbon Dioxide 30 mmol/L (22-30); Chloride 88 mmol/L (98-107); Estimated Creatinine Clearance 66 ml/min; Glucose 215 mg/dl (70-99); Magnesium 1.9 mg/dl (1.6-2.3); Phosphorus 3.3 mg/dl (2.5-4.5); Potassium 4.6 mmol/L (3.5-5.1); Sodium 129 mmol/L (135-145); eGFR > 60.00
[2023-11-22] MEDS: MIRALAX 17 GRAMS PO (09:29)
[2023-11-22] MEDS: DESITIN MAXIMUM STRENGTH PASTE 1 APPLIC TOPICAL (09:29)
[2023-11-22] MEDS: LASIX 80 MG PO (09:30)
[2023-11-22] MEDS: ProAmatine 10 MG PO (09:30)
[2023-11-22] MEDS: KCL 40 MEQ PO (09:30)
[2023-11-22] MEDS: SENOKOT-S 1 TABLET PO (09:30)
[2023-11-22] MEDS: ELIQUIS 5 MG PO (09:30)
[2023-11-22] MEDS: VISBIOME 2 CAP PO (09:30)
[2023-11-22] MEDS: THERAGRAN 1 TABLET PO (09:30)
[2023-11-22] MEDS: FARXIGA 10 MG PO (09:30)
[2023-11-22] MEDS: ALDACTONE 25 MG PO (09:30)
[2023-11-22] MEDS: PROTONIX 40 MG PO (09:30)
--- NOTE | 2023-11-22 11:47 | W.DCSUMMARY ---
Discharge Summary
Discharge Data
Date of Admission: 10/30/23
Date of Discharge: 11/22/23
-
Pending Results: No
Hospital Course
Discharge diagnosis:
Acute heart failure with reduced ejection fraction
Acute on chronic hypoxic respiratory failure
Permanent atrial fibrillation on Eliquis
Hyponatremia
Possible pneumonia on chest x-ray
Chronic hypotension on midodrine
Constipation
Esophagitis
Mouth sores
Hypokalemia
Allergic asthma
Chronic cough
Probable obstructive sleep apnea
Obesity due to excess calories
History of stroke
Chronic ambulatory dysfunction with wheelchair-bound status
Consults: Cardiology
Procedures:
11/10/2023�right heart cath with PCWP of 36 mmHg
Hospital course:
68-year-old female with a past medical history of stroke, ambulatory dysfunction, obesity, asthma, hypotension on midodrine, hypoxic respiratory failure requiring 2 L at baseline, and CHF was admitted for acute on chronic hypoxic respiratory failure
secondary to acute heart failure with a reduced ejection fraction.
Patient was seen in conjunction with cardiology. She is usually on Lasix 80 mg p.o. daily. She was diuresed with Lasix 80 mg IV twice a day. She initially required 4 L of oxygen, but was weaned down to her baseline oxygen requirement of 2 L.
Patient had a chest x-ray, that showed possible pneumonia. Since she presented with shortness of breath upon admission, she was treated with a 1 week course of Augmentin.
After a prolonged hospital course, she was transitioned to oral Lasix. However, she is morbidly obese, and it is difficult to gauge her volume status. She underwent right heart catheterization, showing an elevated wedge pressure as above. She was
transitioned back to Lasix 80 mg IV twice daily, and also received metolazone. Cardiology states this is her lowest weight, and her new dry weight needs to be reset at 233 pounds. Cardiology also started her on generic dapaglifozin 10mg daily.
Patient's hospital course was complicated by acute on chronic hyponatremia. TSH and a.m. cortisol were normal. She was treated with Lasix, fluid restriction. She did also receive 2 doses of Samsca. Her sodium improved to 129 on the day of
discharge. She will be continued on her fluid restriction upon discharge, and needs a repeat BMP on 11/29/2023.
Patient has a history of stroke, and is wheelchair-bound at baseline. She lives alone. She was seen in conjunction with PT, who recommended short-term rehab. Patient is medically stable and cleared by cardiology for discharge. She will be
discharged on Lasix 80 mg p.o. twice a day. She needs to follow-up with her primary care doctor 1 week after she leaves rehab, and cardiology in the office in 2-3 weeks.
Disposition: Short-term rehab
Discharge planning: Required 41 minutes
Discharge Plan
-
Patient Disposition: [facility]NF
Discharge Diagnosis/Procedures: Congestive heart failure, hyponatremia, permanent atrial fibrillation, allergic asthma with chronic cough, chronic ambulatory dysfunction wheelchair-bound, chronic hypoxic respiratory failure on 2 L
Condition: Fair
Diet: 2 Gram Sodium and Restrict fluids to 48 oz
Activity: As tolerated
Driving Restrictions: As prior to admission
Blood Work: BMP on 11/29/2023
Activity Restrictions/Additional Instructions:
Please follow-up with your primary care doctor 1 week after you leave rehab, and cardiology in the office in 2-3 weeks.
Instructions: *CBC Heart Failure Instructions
Referrals:
Ladarius Montes MD [Active] - in two to three weeks
Qiana Rodriguez MD [Family Provider] - in one week
Prescriptions:
New
dapagliflozin propanediol 10 mg Tablet
10 mg PO DAILY Qty: 0 0RF
acetaminophen 325 mg Tablet
650 mg PO Q4HPRN PRN (Reason: mild pain/BURROWS/temp>100.5) Qty: 0 0RF
sennosides-docusate sodium [Stool Softener-Laxative] 8.6-50 mg Tablet
1 tab PO BID Qty: 0 0RF
gabapentin 300 mg Capsule
300 mg PO HS Qty: 0 0RF
Continued
montelukast 10 mg Tablet
10 mg PO HS
Eliquis 5 mg Tablet
5 mg PO BID Qty: 60 0RF
rosuvastatin 20 mg Tablet
20 mg PO HS
fluticasone propion-salmeterol [Wixela Inhub] 250-50 mcg/dose Blister With Device
2 inh INHALATION R BID
therapeutic multivitamin Tablet
1 tab PO DAILY Qty: 0
midodrine 10 mg tablet
10 mg PO BID
Desitin 40 % Paste
1 applic TOPICAL BID
Patient Comments:
apply to sacrum
spironolactone [Aldactone] 25 mg tablet
25 mg PO DAILY
guaifenesin 600 mg tablet extended release 12hr
600 mg PO HS
sucralfate 1 gram Tablet
1 g PO BID@0700,1600 Qty: 60 0RF
pantoprazole 40 mg Tablet,Delayed Release (Dr/Ec)
40 mg PO BID Qty: 60 0RF
polyethylene glycol 3350 [HealthyLax] 17 gram powder in packet
17 g PO DAILY Qty: 30 0RF
Changed
furosemide [Lasix] 80 mg tablet
80 mg PO BID@0800,1600 Qty: 0 0RF
potassium chloride 20 mEq tablet extended release
20 meq PO TID Qty: 0 0RF
Discontinued
docusate sodium 100 mg capsule
100 mg PO BID Qty: 0 0RF
Discharge Orders:
Discharge Patient (As Directed); Ordered 11/22/23
Ordered By: Grady Hawthorne
Discharge Date and Time
Discharge Date/Time: 11/22/23 14:12
Print Language: OCCITAN
--- NOTE | 2023-11-22 12:33 | CM ---
Auth given to Alicia at [facility] for transfer today.
Asael Authorization approved for skilled rehab.
Start date 11/20/23, NRD 11/23/23
Auth# [id number]
updates to Mohini Landry
Ambulance transport forms completed.
IMM completed.
Plan: [facility] today
[facility]
report# [phone]
--- NOTE | 2023-11-22 13:50 | WOUNDNOTE ---
WOC RN note:Patient being picked up to go to SNF rehab. Skin check revealed no pressure injury. No open ulcer noted. Skin on heels blanchable mild red and intact. Patient turns self. She in on an air overlay mattress and has an air chair cushion.
Calazime being used to groin/amadou for urine incontinence. Patient pulled up in bed with help from PCT Abby. Updated PCT Bria. Will sign off.
--- NOTE | 2023-11-22 13:53 | W.PN.CD ---
Today's Communication / Plan
-
stable for discharge on lasix 80mg PO bid, and generic dapaglifozin 10mg daily
BMP next week
we will arrange for outpatient follow up with us
Impression / Plan
-
Background: 68F with morbid obesity, permanent atrial fibrillation/atrial tachycardia s/p AVN ablation and PPM, moderate/severe calcific mitral stenosis admitted with HFmEF.
Second Miller: Dr. Montes
HFmEF/NICMO, Acute on chronic, improved s/p IV lasix and metolazone
-Volume status/rate improving.
-Metolazone on 11/11 and 11/14/2023, weight down, will given another dose of metolazone 11/16/23, extra dose today as well November 16
-Weight is down; this is her lowest recorded weight, dry weight is likely around 233 lb
-Continue spironolactone
-RHC 11/10/2023 PCWP of 36 mmHg.
-Transitioned to Lasix 80 mg PO twice daily: stable
Atrial fibrillation, permanent
-Chronic, stable.
-S/P AV node ablation/pacemaker; residual ASD from EP procedure noted on RHC.
-[id number] 6 (age1, HF, HTN, female, hx CVA).
-Continue apixaban.
Hyponatremia:
-suspect hypervolemic hyponatremia
-s/p tolvaptan
Hypotension:
-Improved on midodrine; continue.
Obesity, morbid Chronic:
-Weight loss recommended.
Chronic severe ambulatory dysfxn
Subjective/Interval History:
She feels the best she has been in a while.
DATA:
Right heart cath 11/10/2023:
Weight (kg):108.6
PA (s/d/x mmHg): 73/40/51
PCWP (a/v/x mmHg): 48/61/36
RV (s/x mmHg): 70/13
RA (a/v/x mmHg): /
SVC SvO2 (%):52.1
IVC SvO2 (%):56.8
RA SvO2 (%):68.9
RV SvO2 (%):68.8
PA SvO2 (%):65.8
MVO2 (%):53.28
SaO2 (%):98.0 (assumed)
Hbg (g/dL):12.5
Qp:Qs:1.39
Caryl
CO (liters/minute):2.52
CI (liters/minute/m2):1.24
Thermodilution
CO (liters/minute):Not performed.
CI (liters/minute/m2):Not performed.
TPG (mmHg):15
PVR (Multani Units):5.95
AVO2 Difference (Volume %): 8.95
CONCLUSION:
1. Severely elevated filling pressures (PCWP = 36 mmHg at 108.6 kg).
2. Severe precapillary and postcapillary pulmonary hypertension (mean PA pressure 51 mmHg, PCWP = 36 mmHg, PVR = 5.95 Multani units).
3. Significant left to right shunt at the level of the atrium (QP:QS = 1.39), likely residual ASD from prior EP procedure.
4. Severely depressed cardiac index (1.24 L/min/m�).
5. Previously documented moderate to severe calcific mitral valve stenosis.
TTE, 11/01/2023:
CONCLUSIONS
Mildly reduced left ventricular systolic function.
Hypokinesis of the septal wall, LV ejection fraction is 45% by Scherer's
method of discs.
Enlarged right ventricular size with reduced systolic function.
Moderate mitral stenosis.
Mild to moderate aortic stenosis.
Compared to previous echo images 07/26/23, the ejection fraction is similar to
slightly worse with more significant septal hypokinesis.
Left atrial Pressure: 09/22/22 (PVI), weight 136.5 kg
Pre-Procedure: Mean LA pressure was 17mmHg
Post-Procedure: Mean LA pressure was 21mmHg
Post-Procedure: Mean RA pressure was 16mmHg
Cath 06/23/22:
CONCLUSIONS:
1. Left dominant circulation with no coronary artery disease.
2. Probably severe mitral valve stenosis (mean gradient 11.1 mmHg, mitral valve area 1.43).
3. Severely elevated filling pressures (LVEDP = 24 mmHg, PCWP = 42 mmHg at 147.0 kg).
4. At least moderate pulmonary hypertension, WHO group 2.
5. Concordance on simultaneous LV/PA and LV/RV tracings.
Physical Exam
Vital Signs/Labs
Vital Signs
Temp Pulse Resp BP Pulse Ox
97.6 F 74 16 90/56 97
11/22/23 07:00 11/22/23 07:45 11/22/23 07:45 11/22/23 09:30 11/22/23 10:07
11/21/23 11/22/23 11/23/23
06:59 06:59 06:59
Actual Weight 106.005 kg
11/22/23 07:57
11/22/23 07:57
Magnesium 1.9 mg/dl (1.6-2.3) 11/22/23 07:57
10/30/23 11/04/23 11/08/23
21:09 10:17 07:52
[id number] Pept [id number]
Physical Exam
Constitutional: No acute distress
EENT: Moist mucous membranes
Cardiovascular: Rhythm & rate is regular, Pedal edema is absent, JVD present and Diastolic murmur present
Respiratory: Respiratory effort normal and Lungs clear to auscul.
GI: Soft and Distention absent
Neuro/Psych: AO x 3
Data Reviewed
-
Date of Service: November 22, 2023
Labs: Labs Reviewed by me
== END 2023-11-22 14:12 | DRG 286 ==
LOC: 4 WEST ACU 23:35
PROVIDERS: Clinical Nurse Specialist Family Health; Internal Medicine; Internal Medicine Cardiovascular Disease; ADMITTING PHYSICIAN Internal Medicine; ATTENDING PHYSICIAN Family Medicine; CONSULT PHYSICIAN Internal Medicine Cardiovascular Disease; EMERGENCY PHYSICIAN Emergency Medicine; FAMILY PHYSICIAN Family Medicine
PROC: 4A023N6 Measurement of Cardiac Sampling and Pressure, Right Heart, Percutaneous Approach (ICD-10-PCS; 2023-11-10)
DX: I11.0 Hypertensive heart disease with heart failure (principal); I50.23 Acute on chronic systolic (congestive) heart failure; J18.9 Pneumonia, unspecified organism; J96.21 Acute and chronic respiratory failure with hypoxia; Z68.41 Body mass index [BMI] 40.0-44.9, adult; E87.1 Hypo-osmolality and hyponatremia; I48.21 Permanent atrial fibrillation; I42.8 Other cardiomyopathies; J45.909 Unspecified asthma, uncomplicated; E78.00 Pure hypercholesterolemia, unspecified; G47.33 Obstructive sleep apnea (adult) (pediatric); I25.10 Atherosclerotic heart disease of native coronary artery without angina pectoris; E66.01 Morbid (severe) obesity due to excess calories; I05.0 Rheumatic mitral stenosis; K21.00 Gastro-esophageal reflux disease with esophagitis, without bleeding; K59.00 Constipation, unspecified; I95.89 Other hypotension; I89.0 Lymphedema, not elsewhere classified; K64.9 Unspecified hemorrhoids; R26.89 Other abnormalities of gait and mobility; K13.79 Other lesions of oral mucosa; E87.6 Hypokalemia; L29.9 Pruritus, unspecified; Z79.01 Long term (current) use of anticoagulants; Z86.73 Personal history of transient ischemic attack (TIA), and cerebral infarction without residual deficits; Z95.0 Presence of cardiac pacemaker; Z87.891 Personal history of nicotine dependence; Z79.899 Other long term (current) drug therapy; Z85.3 Personal history of malignant neoplasm of breast; Z88.5 Allergy status to narcotic agent; Z99.81 Dependence on supplemental oxygen; Z99.3 Dependence on wheelchair
CPT/HCPCS: 71046; 80048; 80053; 81003; 81015; 82533; 82962; 83036; 83735; 83880; 83930; 83935; 84100; 84145; 84300; 84443; 84484; 85025; 85027; 87040; 87070; 87205; 93005; 93307; 93451; 94640; 96374; 97116; 97163; 97166; 97530; 97535; 99285; C1769; C1894; Q9957

== ENCOUNTER 2024-01-02 11:30 | Inpatient (IN) | payer MEDICARE, SELFPAY ==
[2023-12-31 15:18] VITALS: BP 101/68
[2023-12-31 16:35] VITALS: BP 120/74
[2023-12-31 17:06] LABS: % Basophils 1.7 % (0-2); % Eosinophils 2.6 % (0-6); % Immature Granulocytes 0.4 % (0-0.5); % Lymphocytes 15.6 % (20.5-51.1); % Monocytes 6.4 % (1.7-9.3); % Neutrophils 73.3 % (42.2-75.2); Absolute Basophils 0.1 10^3/uL (0-0.2); Absolute Eosinophils 0.2 10^3/uL (0-0.7); Absolute Lymphocytes 1.3 10^3/uL (1.2-3.4); Absolute Monocytes 0.5 10^3/uL (0.1-0.6); Hematocrit 42.6 % (37.0-47.0); Hemoglobin 13.9 g/dL (12.0-16.0); Mean Corp Hgb Conc. 32.6 g/dL (33.0-37.0); Mean Corpuscular Hgb 30.6 pg (27.0-31.0); Mean Corpuscular Volume 93.8 fL (81.0-99.0); Mean Platelet Volume 9.6 fL (7.4-10.4); Nucleated Red Blood Cells % 0 %; Platelet Count 367 10^3/uL (130-400); Red Blood Cell Count 4.54 10^6/uL (4.20-5.40); Red Cell Dist. Width 17.8 % (11.5-14.5); White Blood Cell Count 8.1 10^3/uL (4.8-10.8)
--- NOTE | 2023-12-31 18:48 | ED.GENMED ---
History of Present Illness
General
Chief Complaint: Weakness
Time Seen by Provider: 12/31/23 16:55
History of Present Illness
History of Present Illness:
59 for with history of A-fib on Eliquis, CHF, hypertension, hyperlipidemia, and chronic oxygen dependence presents to the emergency department due to failure to thrive. She states she was just discharged yesterday from [facility] back
to her private residence however cannot take care of herself at home. She states she cannot get herself to the restroom and has been soiling herself. She does report mild shortness of breath and left-sided mid back pain, nonpleuritic in nature.
No fevers or chills
Past History
Past History
ED Past Medical History: Arrthythmia (Atrial fib), Asthma, Cancer (breast, Skin), CHF, CVA (TIA), GERD, HTN, Hypercholesterolemia, Psychiatric (Anxiety, PTSD), Other (RAMY, PNA, Sleep apnea, Various Vein, Peptic ulcer) and Other (mvp)
ED Past Surgical History: Cardiac (pacemaker, Ablation), Cholecystectomy, , Tonsilectomy and Other ( Left breast lumpectomy with aixllary lymph nodes, Hernia, Gastric bypass)
Social History
Tobacco: Former smoker
Alcohol: None
Drug: None
Personal: Single ('pham')
Living: alone
Employment: Not employed
Review of Systems
Review of Systems
Allergies reviewed?: Yes
All Other Systems: ROS reviewed and negative except as documented in HPI and ROS
Phy Exam
Physical Exam
Physical Exam:
GEN: Well appearing, NAD, WDWN
HEENT: Oral mucosa moist, no scleral icterus
Cardiac: Regular rate and rhythm
Lung: No respiratory distress, no tachypnea, no rales or wheezes
MSK: No gross deformity or injuries
Skin: Good color, no pallor or jaundice, no rashes
Neuro: AO x3, moves all extremities freely
Psych: Calm, cooperative
Course
Orders/Labs/Results
Orders:
Orders
12/31/23 Dinner
Cholesterol Lowering
At Your Request: Full Participation
Does patient need a safe tray?: No
Cholesterol Lowering: Sodium, 2 Gram
12/31/23 16:59
Complete Blood Count/With Diff Urgent
12/31/23 18:48
CR Chest - 2 Views Urgent
Comment:
Reason For Exam: SOB
12/31/23 20:28
Comprehensive Metabolic Panel Urgent
NT-proBNP Urgent
Troponin I Urgent
12/31/23 21:18
Furosemide [Lasix] 80 mg IV NOW STA
Potassium Chloride [KCl] 40 meq PO NOW STA
12/31/23 21:49
Potassium Chloride [KCl] 20 meq 0.9% Sodium Chloride 250 ml [Nss] 250 ml IV NOW
12/31/23 21:58
Admit/Transfer Patient As Directed
Co-Sign Provider:
Level of Care: Observation services
Assign to:: Telemetry
Physician / Group: emily
Diagnosis: chf exacerbation
Reason for Telemetry: Acute Heart Failure
Date to Stop Telemetry: 01/03/24
Time to Stop Telemetry: 11:00
Code Status As Directed
Resuscitation Status: Do not resuscitate
Reached after discussion with pt or family/Healthcare POA: Yes
DNR Bracelet Application ONCE
PRN Pain Medication Management As Directed
May give lesser potent ordered pain med per pt: Yes
preference::
Protocol:: Medication orders for pain may be administered in a
manner that supports deferring to patient preference
when the pt is:
- Requesting an ordered lesser potent pain medication.
Least to most potent pain medications are defined
as: acetaminophen < NSAID < tramadol < opioids
(morphine, oxycodone, hydromorphone).
- Requesting a lesser dose of the same medication IF
ORDERED.
- Requesting a less intrusive route of administration
if both routes are prescribed by the provider (PO <
IV).
12/31/23 22:39
Bisacodyl [Dulcolax] 10 mg RECTAL DAILYPRN PRN
Gabapentin [Neurontin] 300 mg PO HS
Magnesium Hydroxide [Milk of Magnesia] 30 ml PO [id number] PRN
Montelukast Sodium [Singulair] 10 mg PO HS
Phosphate Enema [Fleet Phosphate Enema-Adult] 135 ml RECTAL DAILYPRN PRN
Rosuvastatin Calcium [Crestor] 20 mg PO HS
12/31/23 22:39
Case Management Consult ONCE
Case Management Consult: Discharge Planning
VTE Contraindication Routine
VTE Mechanical Device Contraindication: Medical Contraindication
Pharmocologic Contraindication: Medical Contraindication
Activity As Directed
Activity Level: As Tolerated
Intake/ Output As Directed
Frequency: q12h
Patient Education As Directed
Type: CHF folder
Comment: give on admission. Document in Interdisciplinary Education record
Sleep Apnea Assessment by RN As Directed
Comment:
Physician Instructions:
Vital Signs As Directed
Frequency: Other
Additional Instructions:: Q12 or per unit guidelines if more frequent.
Weight As Directed
Frequency: Daily
Type of Scale: Standing Scale
Comment: Daily morning weight. If unable to stand, use balanced bed scale.
Weight As Directed
Frequency: Once
Type of Scale: Standing Scale
Comment: Upon Admission. If unable to stand, use balanced bed scale.
Pulse Ox/cont/shift [RESP] Routine
Quantity: 1
Special Instructions: Daily pulse oximetry at rest. If greater than 92% at rest also obtain pulse oximetry
while ambulating as tolerated.
OT Consult [Ot Eval And Treat] Routine
PT Consult [Pt Eval And Treat] Routine
Activity Level: As Tolerated
12/31/23 23:00
Artificial Tears (Pf) [Refresh Eye Drops (Pf)] 2 drops BOTH EYES TID
Cetirizine HCl [Zyrtec] 10 mg PO HS
01/01/24 06:00
Complete Blood Count/With Diff IN AM
Comprehensive Metabolic Panel IN AM
01/01/24 08:00
Apixaban [Eliquis] 5 mg PO BID
Dapagliflozin [Farxiga] 10 mg PO DAILY
Docusate Sodium [Colace] 100 mg PO BID
Fluticasone/Salmeterol 115/21 [Advair Hfa 115/21 Mcg Inhaler] 2 puff INH R BID
Furosemide [Lasix] 80 mg IV BID AT 0800,1600
Midodrine [ProAmatine] 10 mg PO BID AT 0800,1700
Multivitamin [Theragran] 1 tablet PO DAILY
Pantoprazole [Protonix] 40 mg PO BID
Potassium Chloride [KCl] 40 meq PO TID
Spironolactone [Aldactone] 25 mg PO DAILY
Sucralfate [Carafate] 1 gram PO BID
fluticasone propionate 1 spray NASAL DAILY
01/01/24 22:00
Guaifenesin [Mucinex] 600 mg PO HS
01/03/24 11:00
DC Protocol for Telemetry ONCE
Abnormal Lab Results
12/31/23 12/31/23
16:59 20:28
MCHC 32.6 L g/dL
(33.0-37.0)
RDW 17.8 H %
(11.5-14.5)
Lymphocytes % 15.6 L %
(20.5-51.1)
Sodium 134 L mmol/L
(135-145)
Potassium 3.4 L mmol/L
(3.5-5.1)
Chloride 94 L mmol/L
(98-107)
Glucose 179 H mg/dl
(70-99)
Total Bilirubin 2.1 H mg/dl
(0.2-1.3)
Albumin 3.0 L g/dl
(3.5-5.0)
12/31/23 16:59
12/31/23 20:28
Vital Signs
Initial and Last Documented VS:
Initial Vital Signs
Temp Pulse Resp BP Pulse Ox
98.2 F 70 18 101/68 95
12/31/23 15:18 12/31/23 15:18 12/31/23 15:18 12/31/23 15:18 12/31/23 15:18
Last Documented Vital Signs
Temp Pulse Resp BP Pulse Ox
97.6 F 70 20 110/70 97
12/31/23 23:07 12/31/23 23:07 12/31/23 23:07 12/31/23 23:07 12/31/23 23:07
MDM/Problems Addressed
MDM/Problems Addressed:
Patient may have increased congestive heart failure evidenced by her shortness of breath and increased vascular markings on chest x-ray however she does not appear to have any increased work of breathing does not appear to have gained any weight.
This is likely a failure to thrive situation and she will be admitted for rehab considerations despite the fact that she was just discharged from rehab yesterday she clearly is quite incapable of functioning independently
*Critical Care Note
Total Time (30-74mins, 75-104mins- exclusive of procedures): Not Applicable
ED Attending Note
-
Portions of this chart may have been created with voice recognition software.� Occasional wrong word or��sound alike� substitutions may have occurred due to the inherent limitations of voice recognition software.
Discharge Plan
Departure
Patient Disposition: Admit
Date of Disposition: 12/31/23
Time of Disposition: 21:23
Admit to: Med/Surg
Presentation/result/management discussed w/ accepting MD/DO: Hospitalist
Discharge Problem:
Adult failure to thrive, Acute on chronic systolic (congestive) heart failure
Interventions
Interventions:
*Risk Screen - Suicide Last Done: 12/31/23 22:55
*General Assessment Last Done: 12/31/23 15:18
*Neglect/Abuse Screening Last Done: 12/31/23 15:18
ED- Fall Risk Assessment Last Done: 12/31/23 17:24
*ED COVID-19 Vaccine History Last Done: 12/31/23 22:55
*Nursing Disposition Last Done: 12/31/23 22:30
ED- Cardiac Assessment Last Done: 12/31/23 17:24
ED- Neurological Assessment Last Done: 12/31/23 17:24
ED- Pulmonary Assessment Last Done: 12/31/23 17:24
Discharge Date and Time
Discharge Date/Time: 12/31/23 22:31
[2023-12-31 19:33] VITALS: BP 94/70
[2023-12-31 20:47] LABS: ALT (SGPT) 13 U/L (0-35); AST (SGOT) 28 U/L (14-36); Alkaline Phosphatase 115 U/L (38-126); Blood Urea Nitrogen 17 mg/dl (7-17); Calcium 9.3 mg/dl (8.4-10.2); Carbon Dioxide 29 mmol/L (22-30); Chloride 94 mmol/L (98-107); Glucose 179 mg/dl (70-99); Potassium 3.4 mmol/L (3.5-5.1); Sodium 134 mmol/L (135-145); Total Bilirubin 2.1 mg/dl (0.2-1.3); Total Protein 7.1 g/dl (6.3-8.2); eGFR > 60.00
[2023-12-31 21:00] LABS: NT-proBNP 7780 pg/ml; Troponin I 0.025 ng/ml
[2023-12-31] MEDS: KCL 40 MEQ PO (21:43)
[2023-12-31] MEDS: LASIX 80 MG IV (21:44)
[2023-12-31 21:48] VITALS: BP 116/69
[2023-12-31 22:00] VITALS: BP 106/78
--- NOTE | 2023-12-31 22:02 | HPS.HSE ---
Family Physician
-
Family Physician: NOT KNOW UNKNOWN - PT DOES
Chief Complaint
-
weakness
History of Present Illness
59-year-old female past medical history of permanent atrial fibrillation on Eliquis, HFrEF, chronic hypotension, hyponatremia, chronic hypoxic respiratory failure on 2 L baseline asthma, obstructive sleep apnea, history of CVA, breast cancer,
chronic ambulatory dysfunction wheelchair-bound, obesity, GERD, hypercholesterolemia, anxiety presenting to the emergency room for chest congestion and shortness of breath for the past few days. Shortness of breath is worse when she lies down in
certain positions. She has slight cough. She denies any fevers or chills. She denies any lower extremity edema or weight gain. She has chronic lower back pain which she is having at the current time.
She denies any sore throat or runny nose. She denies any nausea or vomiting or abdominal pain or diarrhea or urinary symptoms.
[facility] however she cannot take care of herself at home. She cannot get herself to the bathroom and has been soiling herself.
She is a former smoker. She denies alcohol use.
Medical History
Past Medical History
Past Medical History: Reports Other (permanent atrial fibrillation on Eliquis, HFrEF, chronic hypotension, hyponatremia, chronic hypoxic respiratory failure on 2 L baseline asthma, obstructive sleep apnea, history of CVA, breast cancer, chronic
ambulatory dysfunction wheelchair-bound, obesity, GERD, hypercholesterolemia, anxiety)
Past Surgical History: Reports Other (Cardiac (pacemaker, Ablation), Cholecystectomy, , Tonsilectomy and Other ( Left breast lumpectomy with aixllary lymph nodes, Hernia, Gastric bypass))
Social History
Tobacco: Former Smoker
Alcohol: None
Drug: None
Family History
Family History: Not pertinent
Allergies / Home Medications
Allergies reflects when Allergies were last updated in [facility].
Home Medications with original date entered in [facility]
Allergy/Medication List:
Allergies
Allergy/AdvReac Type Severity Reaction Status Date / Time
codeine Allergy 'loopy' Verified 12/31/23 15:18
Home Medications
montelukast 10 mg tablet 10 mg PO HS Lung/breathing issues 06/23/22
apixaban 5 mg tablet (Eliquis) 5 mg PO BID #60 tabs 07/01/22
rosuvastatin 20 mg tablet 20 mg PO HS High Cholesterol 02/17/23
fluticasone 250 mcg-salmeterol 50 mcg/dose blistr powdr for inhalation (Wixela Inhub) 2 inh inhalation R BID Lung/Breathing Issues 02/22/23
therapeutic multivitamin 1 tab PO DAILY Supplement ##0 04/16/23
midodrine 10 mg tablet 10 mg PO BID Blood Pressure 10/12/23
spironolactone 25 mg tablet (Aldactone) 25 mg PO DAILY Fluid Retention/Swelling 10/12/23
pantoprazole 40 mg tablet,delayed release 40 mg PO BID #60 tabs 10/21/23
acetaminophen 325 mg tablet 650 mg (2 x 325 mg) PO Q4HPRN PRN mild pain/BURROWS/temp>100.5 #0 tabs 11/22/23
dapagliflozin propanediol 10 mg tablet 10 mg PO DAILY #0 tabs 11/22/23
gabapentin 300 mg capsule 300 mg PO HS #0 caps 11/22/23
bisacodyl 10 mg rectal suppository (Dulcolax (bisacodyl)) 10 mg OK DAILYPRN PRN mom ineffective 12/31/23
cetirizine 10 mg capsule (Zyrtec) 10 mg PO HS 12/31/23
dextran 70-hypromellose eye drops in a dropperette (Artificial Tears (PF) drops in a dropperette) 2 drp BOTH EYES TID 12/31/23
docusate sodium 100 mg capsule 100 mg PO BID 12/31/23
fluticasone propionate 50 mcg/actuation nasal spray,suspension 1 spray intranasal DAILY 12/31/23
furosemide 80 mg tablet (Lasix) 80 mg PO BID Fluid retention/Swelling 12/31/23
guaifenesin 200 mg tablet 600 mg PO HS 12/31/23
magnesium hydroxide 400 mg/5 mL oral suspension (Milk of Magnesia) 30 ml PO [id number] PRN no bm 3 days 12/31/23
potassium chloride 20 mEq tablet,extended release 40 meq PO TID 12/31/23
sodium phosphates 19 gram-7 gram/118 mL enema (Fleet Enema) 118 ml OK DAILYPRN PRN if dulcolax ineffective 12/31/23
sucralfate 1 gram tablet 1 g PO BID 12/31/23
Review of Systems
-
History Source: Patient
A 12 point ROS was completed and negative except as noted: Yes
Constitutional: Reports No Symptoms
EENT: Reports No Symptoms
Respiratory: Reports See HPI
Cardiac: Reports See HPI
Abdomen/GI: Reports No Symptoms
: Reports No Symptoms
Musculoskeletal: Reports No Symptoms
Skin: Reports No Symptoms
Neurological: Reports No Symptoms
Endocrine: Reports No Symptoms
Hematologic/Lymphatic: Reports No Symptoms
Psych: Reports No Symptoms
Physical Exam
Vital Signs
Vital Signs
Temp Pulse Resp BP Pulse Ox
98.2 F 80 15 94/70 95
12/31/23 15:18 12/31/23 21:44 12/31/23 19:33 12/31/23 19:33 12/31/23 19:33
Physical Exam
General: Well Developed, Well Nourished and No Apparent Distress
HEENT: NormoCephalic, Moist mucous membranes and Atraumatic
Respiratory: Clear
Cardiac: S1/S2 and Regular Rhythm; No Murmur or Rub
GI: Soft, Non Tender, Non Distended and Normal Bowel Sounds; No Organomegaly
Rectal: Deferred by Provider
Musculoskeletal: No Clubbing, No Cyanosis and No Edema
Skin: No Rash
Neuro: Nonfocal/grossly intact
Laboratory Results
-
12/31/23 16:59
12/31/23 20:28
Laboratory Results
Total Bilirubin 2.1 mg/dl (0.2-1.3) H 12/31/23 20:28
AST 28 U/L (14-36) 12/31/23 20:28
ALT 13 U/L (0-35) 12/31/23 20:28
Alkaline Phosphatase 115 U/L (38-126) 12/31/23 20:28
Troponin I 0.025 ng/ml 12/31/23 20:28
Data Reviewed
-
Lab Data: Labs Reviewed by me
Old Records: Reviewed
Impression/Plan
-
IMPRESSION:
PLAN:
# Dyspnea secondary to mild acute on chronic HFrEF exacerbation/deconditioning from multiple recent hospitalizations
-Chest x-ray shows increased reticulonodular markings within both lungs with cardiomegaly
-Cardiac BNP of 7700
-Check I's and O's, daily weights
-80 IV Lasix given, continue twice daily, although suspect will not require much further IV diuresis
-Continue dapagliflozin
-Continue spironolactone
-PT/OT
-Case management for SNF placement
# Hypokalemia secondary to Lasix
-Potassium given
-Continue potassium repletion daily
Permanent atrial fibrillation
-Continue Eliquis
Chronic hypotension
-Continue midodrine
Chronic hyponatremia
-Improved
Allergic asthma
-Continue inhalers
-Continue montelukast
Obstructive sleep apnea
Chronic hypoxic respiratory failure on 2 L baseline
History of esophagitis
History of CVA
Chronic ambulatory dysfunction, wheelchair-bound
Obesity
GERD
-Continue Protonix
-Continue sucralfate
Hypercholesterolemia
-Continue statin
Anxiety
History of breast cancer
Obesity secondary to excess calories
Constipation
Chronic lower back pain
-Continue gabapentin
DNR/DNI
DVT prophylaxis�Eliquis
Cardiac diet
[2023-12-31 22:50] VITALS: BP 110/70
[2023-12-31 23:07] VITALS: BMI 36.1
[2023-12-31 23:16] VITALS: BMI 36.1
[2023-12-31] MEDS: REFRESH EYE DROPS (PF) 2 DROPS BOTH EYES (23:23)
[2023-12-31] MEDS: CRESTOR 20 MG PO (23:23)
[2023-12-31] MEDS: NEURONTIN 300 MG PO (23:23)
[2023-12-31] MEDS: ZYRTEC 10 MG PO (23:24)
[2023-12-31] MEDS: SINGULAIR 10 MG PO (23:24)
[2024-01-01] VITALS (8 sets, daily range): BP systolic 91–109; BP diastolic 53–69; PULSE 89; O2SAT 93; BMI 36.2
[2024-01-01] MEDS: KCL 260 MEQ IV (00:50)
[2024-01-01 06:09] LABS: % Basophils 1.7 % (0-2); % Eosinophils 5.8 % (0-6); % Immature Granulocytes 0.4 % (0-0.5); % Lymphocytes 18.4 % (20.5-51.1); % Monocytes 8.5 % (1.7-9.3); % Neutrophils 65.2 % (42.2-75.2); Absolute Basophils 0.1 10^3/uL (0-0.2); Absolute Eosinophils 0.4 10^3/uL (0-0.7); Absolute Lymphocytes 1.4 10^3/uL (1.2-3.4); Absolute Monocytes 0.6 10^3/uL (0.1-0.6); Absolute Neutrophils 4.8 10^3/uL (1.4-6.5); Hematocrit 38.8 % (37.0-47.0); Hemoglobin 12.7 g/dL (12.0-16.0); Mean Corp Hgb Conc. 32.7 g/dL (33.0-37.0); Mean Corpuscular Hgb 30.3 pg (27.0-31.0); Mean Corpuscular Volume 92.6 fL (81.0-99.0); Mean Platelet Volume 9.5 fL (7.4-10.4); Nucleated Red Blood Cells % 0.3 %; Platelet Count 324 10^3/uL (130-400); Red Blood Cell Count 4.19 10^6/uL (4.20-5.40); Red Cell Dist. Width 17.6 % (11.5-14.5); White Blood Cell Count 7.4 10^3/uL (4.8-10.8)
[2024-01-01 06:35] LABS: ALT (SGPT) 12 U/L (0-35); AST (SGOT) 74 U/L (14-36); Albumin 2.9 g/dl (3.5-5.0); Alkaline Phosphatase 123 U/L (38-126); Blood Urea Nitrogen 16 mg/dl (7-17); Calcium 8.9 mg/dl (8.4-10.2); Carbon Dioxide 20 mmol/L (22-30); Chloride 101 mmol/L (98-107); Estimated Creatinine Clearance 73 ml/min; Glucose 98 mg/dl (70-99); Potassium 4.1 mmol/L (3.5-5.1); Sodium 135 mmol/L (135-145); Total Bilirubin 2.2 mg/dl (0.2-1.3); eGFR > 60.00
[2024-01-01] MEDS: ADVAIR HFA 115/21 MCG INHALER 2 PUFF INH ×2 (07:43→19:42)
[2024-01-01] MEDS: KCL 40 MEQ PO ×3 (08:41→22:51)
[2024-01-01] MEDS: COLACE 100 MG PO ×2 (08:41→19:52)
[2024-01-01] MEDS: PROTONIX 40 MG PO ×2 (08:41→19:52)
[2024-01-01] MEDS: ProAmatine 10 MG PO ×2 (08:41→16:31)
[2024-01-01] MEDS: FARXIGA 10 MG PO (08:41)
[2024-01-01] MEDS: REFRESH EYE DROPS (PF) 2 DROPS BOTH EYES ×3 (08:41→22:51)
[2024-01-01] MEDS: ELIQUIS 5 MG PO ×2 (08:41→19:52)
[2024-01-01] MEDS: CARAFATE 1 GRAM PO ×2 (08:42→19:52)
[2024-01-01] MEDS: LASIX 80 MG IV ×2 (08:42→16:31)
[2024-01-01] MEDS: ALDACTONE 25 MG PO (08:42)
[2024-01-01] MEDS: THERAGRAN PO (08:43)
--- NOTE | 2024-01-01 10:20 | W.PN.HOSP.TC ---
Today's Communication/Plan
-
see A/P
Assessment / Plan
Assessment / Plan
HPI: 59-year-old female past medical history of permanent atrial fibrillation on Eliquis, HFrEF, chronic hypotension, hyponatremia, chronic hypoxic respiratory failure on 2 L baseline, asthma, obstructive sleep apnea, history of CVA, breast cancer,
chronic ambulatory dysfunction wheelchair-bound, obesity, GERD, hypercholesterolemia, anxiety; presented with chest congestion and shortness of breath for the past few days. Shortness of breath was worse when she lies down in certain positions. She
has slight cough. She denies any fevers or chills. She denies any lower extremity edema or weight gain. She has chronic lower back pain.
[facility] however she could not take care of herself at home. She cannot get herself to the bathroom and has been soiling herself.
She is a former smoker. She denies alcohol use.
A/P:
# Dyspnea secondary to mild acute on chronic HFrEF exacerbation/deconditioning from multiple recent hospitalizations
Recent Echo from 10/2023: Mildly reduced left ventricular systolic function. EF 45%. Moderate mitral stenosis.
Chest x-ray on admission showed increased reticulonodular markings within both lungs with cardiomegaly
Cardiac BNP of 7700
cont IV Lasix 80 mg BID
Check I's and O's, daily weights
Continue dapagliflozin
Continue spironolactone
PT/OT. Case management for SNF placement
# Hypokalemia secondary to Lasix
repleted
Continue potassium repletion daily
# Permanent atrial fibrillation
Continue Eliquis
# Chronic hypotension
Continue midodrine
# Chronic hyponatremia, Improved
# Allergic asthma
Continue inhalers
Continue montelukast
# Obstructive sleep apnea
# Chronic hypoxic respiratory failure on 2 L baseline
# History of esophagitis
# GERD
Continue Protonix
Continue sucralfate
# History of CVA
# Chronic ambulatory dysfunction, wheelchair-bound
# Hypercholesterolemia
Continue statin
# Anxiety
# History of breast cancer
# Obesity secondary to excess calories
# Constipation
# Chronic lower back pain
Continue gabapentin
DNR/DNI
DVT prophylaxis�Eliquis
Cardiac diet
Anticipated Discharge: > 48 hours
Subjective/Interval History
-
Date of Service: January 01, 2024
Objective Data
-
Labs:
Laboratory Results
01/01/24
05:22
WBC 7.4
Hgb 12.7
Hct 38.8
Plt Count 324
Sodium 135
Potassium 4.1
Chloride 101
Carbon Dioxide 20 L
BUN 16
Creatinine 0.9
Glucose 98
Calcium 8.9
Total Bilirubin 2.2 H
AST 74 H
ALT 12
Alkaline Phosphatase 123
Vital Signs:
Vital Signs
Temp Pulse Resp BP Pulse Ox
36.6 C 72 16 93/62 98
01/01/24 07:00 01/01/24 08:41 01/01/24 07:47 01/01/24 08:41 01/01/24 08:40
I&O
12/31/23 01/01/24 01/02/24
06:59 06:59 06:59
Intake Total 240 / 240
Output Total 50 / 50
Balance 190 / 190
Review of Systems
-
All other systems: Reviewed and negative
Physical Exam
-
General: Well Developed, Well Nourished, Comfortable, Respiratory Distress (chronic), Appears Chronically Ill and Morbidly Obese
HEENT: Normocephalic, Atraumatic and Oxygen (2l NC)
Respiratory: Non Labored Respirations; Negative Wheezes or Accessory Resp Muscle Use
Cardiac: Regular Rhythm and S1/S2
GI: Soft, Nontender, Nondistended and Normal Bowel Sounds
Musculoskeletal: No Clubbing and No Cyanosis
Skin: Warm
Neuro: Awake and Alert
Psych: Calm and Intact Judgement/Insight
Data Reviewed
-
Diagnostic Radiology: Image personally visualized and interpreted and Report Reviewed by me
Labs: Labs Reviewed by me
[2024-01-01] MEDS: NEURONTIN 300 MG PO (22:51)
[2024-01-01] MEDS: SINGULAIR 10 MG PO (22:51)
[2024-01-01] MEDS: CRESTOR 20 MG PO (22:51)
[2024-01-01] MEDS: MUCINEX 600 MG PO (22:51)
[2024-01-01] MEDS: ZYRTEC 10 MG PO (22:51)
[2024-01-02] VITALS (7 sets, daily range): BP systolic 92–111; BP diastolic 61–78; BMI 36.1
[2024-01-02] MEDS: ProAmatine 10 MG PO ×2 (07:52→16:26)
[2024-01-02] MEDS: LASIX IV (07:52)
[2024-01-02] MEDS: ELIQUIS 5 MG PO ×2 (07:52→19:32)
[2024-01-02] MEDS: ALDACTONE PO (07:52)
[2024-01-02] MEDS: COLACE 100 MG PO ×2 (07:53→19:32)
[2024-01-02] MEDS: PROTONIX 40 MG PO ×2 (07:53→19:32)
[2024-01-02] MEDS: THERAGRAN PO (07:53)
[2024-01-02] MEDS: KCL 40 MEQ PO ×3 (07:53→22:40)
[2024-01-02] MEDS: CARAFATE 1 GRAM PO ×2 (07:53→19:32)
[2024-01-02] MEDS: REFRESH EYE DROPS (PF) 2 DROPS BOTH EYES ×3 (07:53→22:42)
[2024-01-02] MEDS: FARXIGA 10 MG PO (07:53)
[2024-01-02] MEDS: ADVAIR HFA 115/21 MCG INHALER 2 PUFF INH ×2 (08:27→19:39)
--- NOTE | 2024-01-02 09:13 | W.PN.HOSP.TC ---
Today's Communication/Plan
-
see A/P
Assessment / Plan
Assessment / Plan
HPI: 59-year-old female past medical history of permanent atrial fibrillation on Eliquis, HFrEF, chronic hypotension, hyponatremia, chronic hypoxic respiratory failure on 2 L baseline, asthma, obstructive sleep apnea, history of CVA, breast cancer,
chronic ambulatory dysfunction wheelchair-bound, obesity, GERD, hypercholesterolemia, anxiety; presented with chest congestion and shortness of breath for the past few days. Shortness of breath was worse when she lies down in certain positions. She
has slight cough. She denies any fevers or chills. She denies any lower extremity edema or weight gain. She has chronic lower back pain.
[facility] however she could not take care of herself at home. She cannot get herself to the bathroom and has been soiling herself.
She is a former smoker. She denies alcohol use.
A/P:
# Dyspnea secondary to mild acute on chronic HFrEF exacerbation/deconditioning from multiple recent hospitalizations
Recent Echo from 10/2023: Mildly reduced left ventricular systolic function. EF 45%. Moderate mitral stenosis.
Chest x-ray on admission showed increased reticulonodular markings within both lungs with cardiomegaly
Cardiac BNP of 7700
Clinically euvolemic, will change IV Lasix 80 mg BID to WINDER OPERATOR PO Lasix 80 BID
Check I's and O's, daily weights
Continue dapagliflozin
Continue spironolactone
PT/OT/Case management for SNF/LTC placement
# Hypokalemia secondary to Lasix
repleted
Continue potassium repletion daily
# Permanent atrial fibrillation
Continue Eliquis
# Chronic hypotension
Continue midodrine
# Chronic hyponatremia, Improved
# Allergic asthma
Continue inhalers
Continue montelukast
# Obstructive sleep apnea
# Chronic hypoxic respiratory failure on 2 L baseline
# History of esophagitis
# GERD
Continue Protonix
Continue sucralfate
# History of CVA
# Chronic ambulatory dysfunction, wheelchair-bound
# Hypercholesterolemia
Continue statin
# Anxiety
# History of breast cancer
# Obesity secondary to excess calories
# Constipation
# Chronic lower back pain
Continue gabapentin
DNR/DNI
DVT prophylaxis�Eliquis
Cardiac diet
Anticipated Discharge: > 48 hours
Subjective/Interval History
-
Date of Service: January 02, 2024
Objective Data
-
Labs:
Laboratory Results
01/02/24
06:00
WBC Pending
Hgb Pending
Hct Pending
Plt Count Pending
Sodium Pending
Potassium Pending
Chloride Pending
Carbon Dioxide Pending
BUN Pending
Creatinine Pending
Glucose Pending
Calcium Pending
Total Bilirubin Pending
AST Pending
ALT Pending
Alkaline Phosphatase Pending
Vital Signs:
Vital Signs
Temp Pulse Resp BP Pulse Ox
36.4 C 70 16 96/63 94
01/02/24 07:35 01/02/24 08:30 01/02/24 08:30 01/02/24 07:52 01/02/24 08:30
I&O
01/01/24 01/02/24 01/03/24
06:59 06:59 06:59
Intake Total 240 / 240 240 / 240
Output Total 50 / 50
Balance 190 / 190 240 / 240
Review of Systems
-
All other systems: Reviewed and negative
Physical Exam
-
General: Well Developed, Well Nourished, Comfortable, Respiratory Distress (chronic), Appears Chronically Ill and Morbidly Obese
HEENT: Normocephalic, Atraumatic and Oxygen (2l NC)
Respiratory: Non Labored Respirations; Negative Wheezes or Accessory Resp Muscle Use
Cardiac: Regular Rhythm and S1/S2
GI: Soft, Nontender, Nondistended and Normal Bowel Sounds
Musculoskeletal: No Clubbing and No Cyanosis; Negative Edema, Right Lower Extrem or Edema, Left Lower Extrem
Skin: Warm
Neuro: Awake and Alert
Psych: Calm and Intact Judgement/Insight
Data Reviewed
-
Diagnostic Radiology: Image personally visualized and interpreted and Report Reviewed by me
Labs: Labs Reviewed by me
[2024-01-02 10:05] LABS: Hematocrit 40.3 % (37.0-47.0); Hemoglobin 12.7 g/dL (12.0-16.0); Mean Corp Hgb Conc. 31.5 g/dL (33.0-37.0); Mean Corpuscular Hgb 30.8 pg (27.0-31.0); Mean Corpuscular Volume 97.6 fL (81.0-99.0); Mean Platelet Volume 9.7 fL (7.4-10.4); Platelet Count 346 10^3/uL (130-400); Red Blood Cell Count 4.13 10^6/uL (4.20-5.40); Red Cell Dist. Width 17.8 % (11.5-14.5)
[2024-01-02 10:30] LABS: ALT (SGPT) 12 U/L (0-35); AST (SGOT) 23 U/L (14-36); Albumin 2.8 g/dl (3.5-5.0); Alkaline Phosphatase 103 U/L (38-126); Blood Urea Nitrogen 17 mg/dl (7-17); Calcium 9.3 mg/dl (8.4-10.2); Carbon Dioxide 26 mmol/L (22-30); Chloride 98 mmol/L (98-107); Estimated Creatinine Clearance 82 ml/min; Glucose 167 mg/dl (70-99); Magnesium 1.7 mg/dl (1.6-2.3); Potassium 4.2 mmol/L (3.5-5.1); Sodium 136 mmol/L (135-145); Total Bilirubin 1.5 mg/dl (0.2-1.3); Total Protein 6.6 g/dl (6.3-8.2); eGFR > 60.00
--- NOTE | 2024-01-02 13:16 | CM ---
Patient with Dx HF, hypokalemia. O2 3L.
PT Eval; nonambulatory and wheelchair-bound at baseline, so goals are limited. Pt was only home for one day and probable should not be living alone, recommend skilled rehab.
OT Eval 12/31: dependent for lower extremity self care, diff transfering and taking care of herself, recommend skilled rehab..
Met with patient who resides alone in a 1 story house in [facility], [place] [address] [place].
The patient states shw eas independent in ADLs prior to her recent stay at [facility].
She was home 1 day after SNF and could not care for herself, stating she stayed in bed all day and her friends could not assist her.
She is non-ambulatory and w/c bound at baseline.
DME - RW, w/c, home O2 concentrator and portables
VN - none
SNF - prior [facility] (did not like the care there) and [facility] SNFs
PCP - Qiana Rodriguez
Pharmacy [facility]
Patient realizes she cannot care for herself at home at this time, and agrees to return to SNF for rehab, however she is uncertain which SNF she wants to go to. [facility] SNF list provided and patient agrees to review on her own and decide where she wants
to go for rehab.
Attempted to discuss LTC needs however patient did not want to talk about it at this time. She states she cannot afford to hire a caregiver at home. The patient doesn't have a POA. She has a friend Elan who lives in [place] and daughter Karey who
lives in [facility]. Patient adamantly does not want her daughter Karey contacted- she says her daughter is 'too delicate' and gets too upset if she is asked to discuss such things as d/c plans- patient reports that the last time Karey was involved in d/c
plans she was so upset she had to stay in bed for 3 days.
Plan follow up with patient tomorrow re; SNF preferences.
[2024-01-02] MEDS: LASIX 80 MG PO (16:26)
[2024-01-02] MEDS: MUCINEX 600 MG PO (22:40)
[2024-01-02] MEDS: NEURONTIN 300 MG PO (22:40)
[2024-01-02] MEDS: SINGULAIR 10 MG PO (22:40)
[2024-01-02] MEDS: ZYRTEC 10 MG PO (22:40)
[2024-01-02] MEDS: CRESTOR 20 MG PO (22:40)
[2024-01-03 03:11] VITALS: BP 95/62
[2024-01-03 04:41] VITALS: BMI 36.2
[2024-01-03] MEDS: ADVAIR HFA 115/21 MCG INHALER 2 PUFF INH ×2 (07:49→19:28)
--- NOTE | 2024-01-03 08:06 | W.PN.HOSP.TC ---
Today's Communication/Plan
-
Change back to Lasix 80 mg IV twice daily
Assessment / Plan
Assessment / Plan
HPI: 59-year-old female past medical history of permanent atrial fibrillation on Eliquis, HFrEF, chronic hypotension, hyponatremia, chronic hypoxic respiratory failure on 2 L baseline, asthma, obstructive sleep apnea, history of CVA, breast cancer,
chronic ambulatory dysfunction wheelchair-bound, obesity, GERD, hypercholesterolemia, anxiety; presented with chest congestion and shortness of breath for the past few days. Shortness of breath was worse when she lies down in certain positions. She
has slight cough. She denies any fevers or chills. She denies any lower extremity edema or weight gain. She has chronic lower back pain.
She was discharged from [facility] back to her private residence however she could not take care of herself at home. She cannot get herself to the bathroom and has been soiling herself.
She is a former smoker. She denies alcohol use.
A/P:
# Dyspnea secondary to mild acute on chronic HFrEF exacerbation/deconditioning from multiple recent hospitalizations
Recent Echo from 10/2023: Mildly reduced left ventricular systolic function. EF 45%. Moderate mitral stenosis.
Chest x-ray on admission showed increased reticulonodular markings within both lungs with cardiomegaly
Cardiac BNP of 7700
Patient reports increased shortness of breath, change oral Lasix to Lasix 80 mg IV twice daily
Check I's and O's, daily weights
Continue dapagliflozin
Continue spironolactone
PT/OT/Case management for SNF/LTC placement
# Hypokalemia secondary to Lasix
repleted
Continue potassium repletion daily
# Permanent atrial fibrillation
Continue Eliquis
# Chronic hypotension
Continue midodrine
# Chronic hyponatremia, Improved
# Allergic asthma
Continue inhalers
Continue montelukast
# Obstructive sleep apnea
# Chronic hypoxic respiratory failure on 2 L baseline
# History of esophagitis
# GERD
Continue Protonix
Continue sucralfate
# History of CVA
# Chronic ambulatory dysfunction, wheelchair-bound
# Hypercholesterolemia
Continue statin
# Anxiety
# History of breast cancer
# Obesity secondary to excess calories
# Constipation
# Chronic lower back pain
Continue gabapentin
DVT prophylaxis�Eliquis
DNR
Total time spent to see the patient on the floor, examine the patient, review data and lab results, discuss treatment plan with patient, nursing staff around 45 minutes.
Physical Exam
General: Morbidly obese, no acute distress
HEENT: Normocephalic, Atraumatic, EOMI, MMM
Respiratory: Diminished breath sounds at the bases
Cardiac: Normal S1/S2, Regular Rate and Rhythm
GI: Soft, Nontender, Nondistended, Normal Bowel Sounds
Extremities: No Clubbing, Cyanosis, or Edema
Neuro: Nonfocal/Grossly Intact
Psych: Calm, Cooperative
Anticipated Discharge: 24 - 48 hours
Subjective/Interval History
-
Date of Service: January 03, 2024
Patient reports being more short of breath than usual. No fever, no vomiting.
Objective Data
-
Labs:
Laboratory Results
01/03/24
06:00
WBC Pending
Hgb Pending
Hct Pending
Plt Count Pending
Sodium Pending
Potassium Pending
Chloride Pending
Carbon Dioxide Pending
BUN Pending
Creatinine Pending
Glucose Pending
Calcium Pending
Total Bilirubin Pending
AST Pending
ALT Pending
Alkaline Phosphatase Pending
Vital Signs:
Vital Signs
Temp Pulse Resp BP Pulse Ox
97.5 F 76 15 95/62 95
01/03/24 03:11 01/03/24 07:52 01/03/24 07:52 01/03/24 03:11 01/03/24 07:52
I&O
01/02/24 01/03/24 01/04/24
06:59 06:59 06:59
Intake Total 240 / 240 1020 / 1020
Balance 240 / 240 1020 / 1020
[2024-01-03] MEDS: REFRESH EYE DROPS (PF) 2 DROPS BOTH EYES ×3 (08:08→20:15)
[2024-01-03] MEDS: COLACE 100 MG PO ×2 (08:08→20:13)
[2024-01-03] MEDS: CARAFATE 1 GRAM PO ×2 (08:08→20:13)
[2024-01-03] MEDS: ELIQUIS 5 MG PO ×2 (08:08→20:12)
[2024-01-03] MEDS: PROTONIX 40 MG PO ×2 (08:09→20:14)
[2024-01-03] MEDS: FARXIGA 10 MG PO (08:09)
[2024-01-03] MEDS: LASIX 80 MG PO (08:09)
[2024-01-03] MEDS: ProAmatine PO ×2 (08:10→16:42)
[2024-01-03] MEDS: THERAGRAN 1 TABLET PO (08:11)
[2024-01-03] MEDS: ALDACTONE 25 MG PO (08:11)
[2024-01-03] MEDS: KCL 40 MEQ PO ×3 (08:11→20:14)
[2024-01-03] MEDS: FLUSH (NSS) 1 FLUSH IV ×3 (08:12→16:43)
[2024-01-03 08:20] VITALS: BP 164/79
[2024-01-03] MEDS: LASIX 80 MG IV ×2 (09:38→16:43)
[2024-01-03 10:45] LABS: Hematocrit 39.9 % (37.0-47.0); Hemoglobin 12.6 g/dL (12.0-16.0); Mean Corp Hgb Conc. 31.6 g/dL (33.0-37.0); Mean Platelet Volume 9.7 fL (7.4-10.4); Platelet Count 338 10^3/uL (130-400); Red Blood Cell Count 4.07 10^6/uL (4.20-5.40); Red Cell Dist. Width 17.7 % (11.5-14.5); White Blood Cell Count 9.1 10^3/uL (4.8-10.8)
[2024-01-03 10:53] VITALS: BMI 36.2
--- NOTE | 2024-01-03 11:04 | CM ---
PT OT recommended SNF.
Pt nonambulatory wc bound.
Spoke with Alicia and Yulissa at [facility] pt was there 11/21 to 12/07 under [place]. Changed to Medicare was there 12/08 to 12/29 .
Alicia will check how many days are available with copay.
Will need to see which SNF pt wants.
PLAN To SNF after located
[2024-01-03 11:18] LABS: ALT (SGPT) 11 U/L (0-35); AST (SGOT) 24 U/L (14-36); Albumin 2.9 g/dl (3.5-5.0); Alkaline Phosphatase 121 U/L (38-126); Blood Urea Nitrogen 17 mg/dl (7-17); Carbon Dioxide 26 mmol/L (22-30); Chloride 100 mmol/L (98-107); Estimated Creatinine Clearance 94 ml/min; Glucose 132 mg/dl (70-99); Sodium 135 mmol/L (135-145); Total Bilirubin 1.4 mg/dl (0.2-1.3); Total Protein 6.9 g/dl (6.3-8.2); eGFR > 60.00
[2024-01-03 16:21] VITALS: BP 125/83
--- NOTE | 2024-01-03 16:29 | PTCARENOTE ---
Pt AAO x3, ZAMAN; able to turn/position self in bed with minimal assistance; refuses offers of OOB to chair activity- 'I 'm in a WC at home'. VSS. Maintained on nc 2 lpm- pulse ox 94%, pt with (+) slight PIERCE; denies SOB. Abd obese, soft, ayah PO
well. Incont large amts urine; refuses Purewick. Resting in bed at present, no c/o. Will continue to monitor.
[2024-01-03] MEDS: SINGULAIR 10 MG PO (20:12)
[2024-01-03] MEDS: CRESTOR 20 MG PO (20:14)
[2024-01-03] MEDS: ZYRTEC 10 MG PO (20:14)
[2024-01-03] MEDS: MUCINEX 600 MG PO (20:15)
[2024-01-03] MEDS: NEURONTIN 300 MG PO (21:58)
[2024-01-03 23:55] VITALS: BP 107/72
[2024-01-04 06:00] VITALS: BMI 36.3
[2024-01-04 07:00] VITALS: BP 96/56
[2024-01-04] MEDS: ADVAIR HFA 115/21 MCG INHALER 2 PUFF INH ×2 (08:01→19:21)
[2024-01-04 08:22] VITALS: BP 96/56
--- NOTE | 2024-01-04 08:54 | W.PN.HOSP.TC ---
Today's Communication/Plan
-
Discharge to short-term rehab when bed available
Assessment / Plan
Assessment / Plan
HPI: 59-year-old female past medical history of permanent atrial fibrillation on Eliquis, HFrEF, chronic hypotension, hyponatremia, chronic hypoxic respiratory failure on 2 L baseline, asthma, obstructive sleep apnea, history of CVA, breast cancer,
chronic ambulatory dysfunction wheelchair-bound, obesity, GERD, hypercholesterolemia, anxiety; presented with chest congestion and shortness of breath for the past few days. Shortness of breath was worse when she lies down in certain positions. She
has slight cough. She denies any fevers or chills. She denies any lower extremity edema or weight gain. She has chronic lower back pain.
She was discharged from [facility] back to her private residence however she could not take care of herself at home. She cannot get herself to the bathroom and has been soiling herself.
She is a former smoker. She denies alcohol use.
A/P:
# Dyspnea secondary to mild acute on chronic HFrEF exacerbation/deconditioning from multiple recent hospitalizations
Recent Echo from 10/2023: Mildly reduced left ventricular systolic function. EF 45%. Moderate mitral stenosis.
Chest x-ray on admission showed increased reticulonodular markings within both lungs with cardiomegaly
Cardiac BNP of 7700
Continue IV Lasix for now, plan to change to oral Lasix upon discharge
Continue dapagliflozin, spironolactone
Medically stable for discharge to short-term rehab when bed available
# Hypokalemia secondary to Lasix
Repleted and resolved
# Permanent atrial fibrillation
Continue Eliquis
# Constipation
Increase laxatives
# Chronic hypotension
Continue midodrine
# Chronic hyponatremia
Mild, monitor
# Allergic asthma
Continue inhalers
Continue montelukast
# Obstructive sleep apnea
# Chronic hypoxic respiratory failure on 2 L baseline
# History of esophagitis
# GERD
Continue Protonix
Continue sucralfate
# History of CVA
# Chronic ambulatory dysfunction, wheelchair-bound
# Hypercholesterolemia
Continue statin
# Anxiety
# History of breast cancer
# Obesity secondary to excess calories
# Chronic lower back pain
Continue gabapentin
DVT prophylaxis�Eliquis
DNR
Total time spent to see the patient on the floor, examine the patient, review data and lab results, discuss treatment plan with patient, nursing staff around 40 minutes.
Physical Exam
General: Morbidly obese, no acute distress
HEENT: Normocephalic, Atraumatic, EOMI, MMM
Respiratory: Diminished breath sounds at the bases
Cardiac: Normal S1/S2, Regular Rate and Rhythm
GI: Soft, Nontender, Nondistended, Normal Bowel Sounds
Extremities: No Clubbing, Cyanosis, or Edema
Neuro: Nonfocal/Grossly Intact
Psych: Calm, Cooperative
Anticipated Discharge: Within 24 hours
Subjective/Interval History
-
Date of Service: January 04, 2024
Patient reports her breathing is improved. Her breathing is her baseline shortness of breath. No fever, no vomiting.
Objective Data
-
Labs:
Laboratory Results
01/04/24
06:00
Sodium Pending
Potassium Pending
Chloride Pending
Carbon Dioxide Pending
BUN Pending
Creatinine Pending
Glucose Pending
Calcium Pending
Vital Signs:
Vital Signs
Temp Pulse Resp BP Pulse Ox
97.7 F 71 20 96/56 93
01/04/24 07:00 01/04/24 07:00 01/04/24 07:00 01/04/24 07:00 01/04/24 08:28
I&O
01/03/24 01/04/24 01/05/24
06:59 06:59 06:59
Intake Total 1020 / 1020 2400 / 2400
Balance 1020 / 1020 2400 / 2400
[2024-01-04 10:08] LABS: Blood Urea Nitrogen 17 mg/dl (7-17); Calcium 8.8 mg/dl (8.4-10.2); Carbon Dioxide 28 mmol/L (22-30); Chloride 97 mmol/L (98-107); Estimated Creatinine Clearance 95 ml/min; Glucose 156 mg/dl (70-99); Magnesium 1.6 mg/dl (1.6-2.3); Potassium 4.4 mmol/L (3.5-5.1); Sodium 133 mmol/L (135-145); eGFR > 60.00
[2024-01-04] MEDS: KCL 40 MEQ PO ×3 (10:13→20:30)
[2024-01-04] MEDS: FARXIGA 10 MG PO (10:13)
[2024-01-04] MEDS: COLACE 100 MG PO (10:13)
[2024-01-04] MEDS: THERAGRAN 1 TABLET PO (10:14)
[2024-01-04] MEDS: CARAFATE 1 GRAM PO ×2 (10:14→20:31)
[2024-01-04] MEDS: LASIX 80 MG IV ×2 (10:14→16:43)
[2024-01-04] MEDS: ELIQUIS 5 MG PO ×2 (10:14→20:30)
[2024-01-04] MEDS: ALDACTONE 25 MG PO (10:14)
[2024-01-04] MEDS: PROTONIX 40 MG PO ×2 (10:22→20:29)
[2024-01-04] MEDS: REFRESH EYE DROPS (PF) 2 DROPS BOTH EYES ×3 (10:22→20:31)
[2024-01-04] MEDS: ProAmatine PO (10:22)
[2024-01-04 15:00] VITALS: BP 99/61
[2024-01-04] MEDS: ProAmatine 10 MG PO (16:44)
--- NOTE | 2024-01-04 17:19 | CM ---
Spoke with dgt Deric [phone] she lives in [place] and is trying to help her home.
[facility] can accept pt but will need to speak with dgt about insurance and coverage.
PT OT says SNF.
Spoke with pt she said she will speak with her dgt and let dgt help her with dc planning.
PLAN Probable dc to [facility]
[2024-01-04] MEDS: MUCINEX 600 MG PO (20:29)
[2024-01-04] MEDS: ZYRTEC 10 MG PO (20:30)
[2024-01-04] MEDS: CRESTOR 20 MG PO (20:30)
[2024-01-04] MEDS: COLACE PO (20:31)
[2024-01-04] MEDS: SENOKOT PO (20:31)
[2024-01-04] MEDS: SINGULAIR 10 MG PO (20:31)
[2024-01-04] MEDS: NEURONTIN 300 MG PO (22:26)
[2024-01-04 23:53] VITALS: BP 105/62
[2024-01-05 05:33] LABS: Blood Urea Nitrogen 17 mg/dl (7-17); Carbon Dioxide 29 mmol/L (22-30); Chloride 96 mmol/L (98-107); Estimated Creatinine Clearance 95 ml/min; Glucose 114 mg/dl (70-99); Potassium 4.9 mmol/L (3.5-5.1); Sodium 135 mmol/L (135-145); eGFR > 60.00
[2024-01-05 06:00] VITALS: BMI 36.3
[2024-01-05 07:00] VITALS: BP 117/72
[2024-01-05] MEDS: ADVAIR HFA 115/21 MCG INHALER 2 PUFF INH ×2 (07:28→19:25)
[2024-01-05] MEDS: ProAmatine PO (08:13)
[2024-01-05] MEDS: PROTONIX 40 MG PO ×2 (08:13→20:21)
[2024-01-05] MEDS: LASIX 80 MG IV ×2 (08:15→16:57)
[2024-01-05] MEDS: FLUSH (NSS) 2 FLUSH IV ×2 (08:16→16:58)
[2024-01-05] MEDS: FARXIGA 10 MG PO (08:17)
[2024-01-05] MEDS: THERAGRAN PO ×2 (08:17→08:21)
[2024-01-05] MEDS: ALDACTONE 25 MG PO (08:17)
[2024-01-05] MEDS: REFRESH EYE DROPS (PF) 2 DROPS BOTH EYES ×3 (08:17→21:36)
[2024-01-05] MEDS: KCL 40 MEQ PO ×2 (08:17→20:20)
[2024-01-05] MEDS: COLACE PO (08:18)
[2024-01-05] MEDS: CARAFATE 1 GRAM PO ×2 (08:18→20:19)
[2024-01-05] MEDS: ELIQUIS 5 MG PO ×2 (08:18→20:20)
--- NOTE | 2024-01-05 09:11 | W.PN.HOSP.TC ---
Today's Communication/Plan
-
Discharge to [facility] when bed available
Assessment / Plan
Assessment / Plan
HPI: 59-year-old female past medical history of permanent atrial fibrillation on Eliquis, HFrEF, chronic hypotension, hyponatremia, chronic hypoxic respiratory failure on 2 L baseline, asthma, obstructive sleep apnea, history of CVA, breast cancer,
chronic ambulatory dysfunction wheelchair-bound, obesity, GERD, hypercholesterolemia, anxiety; presented with chest congestion and shortness of breath for the past few days. Shortness of breath was worse when she lies down in certain positions. She
has slight cough. She denies any fevers or chills. She denies any lower extremity edema or weight gain. She has chronic lower back pain.
She was [facility] back to her private residence however she could not take care of herself at home. She cannot get herself to the bathroom and has been soiling herself.
She is a former smoker. She denies alcohol use.
A/P:
# Dyspnea secondary to mild acute on chronic HFrEF exacerbation/deconditioning from multiple recent hospitalizations
Recent Echo from 10/2023: Mildly reduced left ventricular systolic function. EF 45%. Moderate mitral stenosis.
Chest x-ray on admission showed increased reticulonodular markings within both lungs with cardiomegaly
Cardiac BNP of 7700
Continue IV Lasix for now, plan to change to oral Lasix upon discharge
Continue dapagliflozin, spironolactone
Medically stable for discharge to short-term rehab when bed available
# Hypokalemia secondary to Lasix
Repleted and resolved
# Permanent atrial fibrillation
Continue Eliquis
# Constipation
Increased laxatives
# Chronic hypotension
Continue midodrine
# Chronic hyponatremia
Mild, monitor
# Allergic asthma
Continue inhalers
Continue montelukast
# Obstructive sleep apnea
# Chronic hypoxic respiratory failure on 2 L baseline
# History of esophagitis
# GERD
Continue Protonix
Continue sucralfate
# History of CVA
# Chronic ambulatory dysfunction, wheelchair-bound
# Hypercholesterolemia
Continue statin
# Anxiety
# History of breast cancer
# Obesity secondary to excess calories
# Chronic lower back pain
Continue gabapentin
DVT prophylaxis�Eliquis
DNR
Updated dtr on phone 01/03
Total time spent to see the patient on the floor, examine the patient, review data and lab results, discuss treatment plan with patient, nursing staff around 39 minutes.
Physical Exam
General: Morbidly obese, no acute distress
HEENT: Normocephalic, Atraumatic, EOMI, MMM
Respiratory: Diminished breath sounds at the bases
Cardiac: Normal S1/S2, Regular Rate and Rhythm
GI: Soft, Nontender, Nondistended, Normal Bowel Sounds
Extremities: No Clubbing, Cyanosis, or Edema
Neuro: Nonfocal/Grossly Intact
Psych: Calm, Cooperative
Anticipated Discharge: Within 24 hours
Subjective/Interval History
-
Date of Service: January 05, 2024
Reports her SOB is chronic, and at baseline. No fever, no vomiting.
Objective Data
-
Labs:
Laboratory Results
01/05/24
04:22
Sodium 135
Potassium 4.9
Chloride 96 L
Carbon Dioxide 29
BUN 17
Creatinine 0.7
Glucose 114 H
Calcium 9.0
Vital Signs:
Vital Signs
Temp Pulse Resp BP Pulse Ox
97.7 F 82 16 117/72 95
01/05/24 07:00 01/05/24 07:29 01/05/24 07:29 01/05/24 08:13 01/05/24 07:29
I&O
01/04/24 01/05/24 01/06/24
06:59 06:59 06:59
Intake Total 2400 / 2400 1200 / 1200
Balance 2400 / 2400 1200 / 1200
--- NOTE | 2024-01-05 10:25 | CM ---
Addendum entered by Misty Rivers RN 01/05/24 16:37:
Spoke with pt at bedside. 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 Pt declined.
Pt said she wants to go home.
Explained to pt home with VN is not a safe dc plan.
As per RN pt was incontinent and did not realize.
Spoke with Chucky Costa director of .
PLAN On going DC planning
Original Note:
Pt requested [facility] .
Spoke with Alicia [facility] has nt accepted pt yet. as per Alicia pt will have to complete forms for terminal block assembler care which pt has not done in past.
Alicia will call back after speaking with Deric krishna.
Daughter Deric [phone] she lives in [place] and is trying to help her mom.
PLAN Possible dc to [facility]
[2024-01-05 13:45] VITALS: BP 104/70; PULSE 81; O2SAT 94
[2024-01-05 15:00] VITALS: BP 108/72
[2024-01-05] MEDS: ProAmatine 10 MG PO (17:00)
[2024-01-05] MEDS: COLACE 100 MG PO (20:19)
[2024-01-05] MEDS: MIRALAX 17 GRAMS PO (20:20)
[2024-01-05] MEDS: NEURONTIN 300 MG PO (21:35)
[2024-01-05] MEDS: CRESTOR 20 MG PO (21:35)
[2024-01-05] MEDS: ZYRTEC 10 MG PO (21:36)
[2024-01-05] MEDS: MUCINEX 600 MG PO (21:36)
[2024-01-05] MEDS: SENOKOT 17.2 MG PO (21:36)
[2024-01-05] MEDS: SINGULAIR 10 MG PO (21:36)
[2024-01-05 23:53] VITALS: BP 104/62
[2024-01-06 06:00] VITALS: BMI 36.2
[2024-01-06] MEDS: ADVAIR HFA 115/21 MCG INHALER 2 PUFF INH ×2 (06:42→19:17)
[2024-01-06 07:00] VITALS: BP 123/69
[2024-01-06 07:00] LABS: NT-proBNP 7750 pg/ml
[2024-01-06 07:23] LABS: Blood Urea Nitrogen 19 mg/dl (7-17); Carbon Dioxide 25 mmol/L (22-30); Chloride 97 mmol/L (98-107); Estimated Creatinine Clearance 83 ml/min; Glucose 78 mg/dl (70-99); Potassium 4.6 mmol/L (3.5-5.1); Sodium 135 mmol/L (135-145); eGFR > 60.00
--- NOTE | 2024-01-06 08:05 | W.PN.HOSP.TC ---
Today's Communication/Plan
-
Discharge to short-term rehab when bed available
Assessment / Plan
Assessment / Plan
HPI: 59-year-old female past medical history of permanent atrial fibrillation on Eliquis, HFrEF, chronic hypotension, hyponatremia, chronic hypoxic respiratory failure on 2 L baseline, asthma, obstructive sleep apnea, history of CVA, breast cancer,
chronic ambulatory dysfunction wheelchair-bound, obesity, GERD, hypercholesterolemia, anxiety; presented with chest congestion and shortness of breath for the past few days. Shortness of breath was worse when she lies down in certain positions. She
has slight cough. She denies any fevers or chills. She denies any lower extremity edema or weight gain. She has chronic lower back pain.
She was discharged from [facility] back to her private residence however she could not take care of herself at home. She cannot get herself to the bathroom and has been soiling herself.
She is a former smoker. She denies alcohol use.
A/P:
# Dyspnea secondary to mild acute on chronic HFrEF exacerbation/deconditioning from multiple recent hospitalizations
Recent Echo from 10/2023: Mildly reduced left ventricular systolic function. EF 45%. Moderate mitral stenosis.
Chest x-ray on admission showed increased reticulonodular markings within both lungs with cardiomegaly
Cardiac BNP of 7700
Continue IV Lasix for now, plan to change to oral Lasix upon discharge
Give metolazone 5 mg p.o. x 1 today
Continue dapagliflozin, spironolactone
Medically stable for discharge to short-term rehab when bed available
Patient is competent to make her own medical decisions
# Hypokalemia secondary to Lasix
Repleted and resolved
# Permanent atrial fibrillation
Continue Eliquis
# Constipation
Increased laxatives
# Chronic hypotension
Continue midodrine
# Chronic hyponatremia
Mild, monitor
# Allergic asthma
Continue inhalers
Continue montelukast
# Obstructive sleep apnea
# Chronic hypoxic respiratory failure on 2 L baseline
# History of esophagitis
# GERD
Continue Protonix
Continue sucralfate
# History of CVA
# Chronic ambulatory dysfunction, wheelchair-bound
# Hypercholesterolemia
Continue statin
# Anxiety
# History of breast cancer
# Obesity secondary to excess calories
# Chronic lower back pain
Continue gabapentin
DVT prophylaxis�Eliquis
DNR
Updated dtr on phone 01/03
Total time spent to see the patient on the floor, examine the patient, review data and lab results, discuss treatment plan with patient, nursing staff around 38 minutes.
Physical Exam
General: Morbidly obese, no acute distress
HEENT: Normocephalic, Atraumatic, EOMI, MMM
Respiratory: Diminished breath sounds at the bases
Cardiac: Normal S1/S2, Regular Rate and Rhythm
GI: Soft, Nontender, Nondistended, Normal Bowel Sounds
Extremities: No Clubbing, Cyanosis, or Edema
Neuro: Nonfocal/Grossly Intact
Psych: Calm, Cooperative
Anticipated Discharge: Within 24 hours
Subjective/Interval History
-
Date of Service: January 06, 2024
Shortness of breath at baseline. No fever, no vomiting.
Objective Data
-
Labs:
Laboratory Results
01/06/24
04:26
Sodium 135
Potassium 4.6
Chloride 97 L
Carbon Dioxide 25
BUN 19 H
Creatinine 0.8
Glucose 78
Calcium 9.0
Vital Signs:
Vital Signs
Temp Pulse Resp BP Pulse Ox
97.7 F 83 16 104/62 95
01/05/24 23:53 01/06/24 06:48 01/06/24 06:48 01/05/24 23:53 01/06/24 06:48
I&O
01/05/24 01/06/24 01/07/24
06:59 06:59 06:59
Intake Total 1200 / 1200 1040 / 1040
Balance 1200 / 1200 1040 / 1040
[2024-01-06] MEDS: FARXIGA 10 MG PO (08:21)
[2024-01-06] MEDS: ZAROXOLYN 5 MG PO (08:21)
[2024-01-06] MEDS: PROTONIX 40 MG PO ×2 (08:21→21:24)
[2024-01-06] MEDS: ProAmatine PO (08:21)
[2024-01-06] MEDS: THERAGRAN 1 TABLET PO (08:22)
[2024-01-06] MEDS: COLACE 100 MG PO (08:22)
[2024-01-06] MEDS: ALDACTONE 25 MG PO (08:22)
[2024-01-06] MEDS: LASIX 80 MG IV ×2 (08:22→15:51)
[2024-01-06] MEDS: CARAFATE 1 GRAM PO ×2 (08:22→21:25)
[2024-01-06] MEDS: ELIQUIS 5 MG PO ×2 (08:22→21:24)
[2024-01-06] MEDS: MIRALAX 17 GRAMS PO (08:24)
[2024-01-06] MEDS: KCL 40 MEQ PO ×2 (08:24→21:25)
[2024-01-06] MEDS: REFRESH EYE DROPS (PF) 2 DROPS BOTH EYES ×3 (08:26→21:24)
[2024-01-06] MEDS: OCEAN, SALINE MIST 2 SPRAYS NASAL ×3 (14:07→21:34)
[2024-01-06 15:00] VITALS: BP 103/60
[2024-01-06] MEDS: ProAmatine 10 MG PO (15:51)
--- NOTE | 2024-01-06 15:53 | VNURNOTE ---
Home health liaison spoke to patient [facility] services, visit scheduling/frequency, homebound status and pet policy. Patient has had [facility] in the past adn is very familiar. She understands home visits will be 1-2 times a week to assess and teach medical
management. Home health liasison discussed with patient about hiring more help at home. Patient aware a visiting nurse will contact her for start of care within 1-2 days after discharge from . [facility] Referral completed in care port.
[2024-01-06] MEDS: CRESTOR 20 MG PO (21:25)
[2024-01-06] MEDS: NEURONTIN 300 MG PO (21:25)
[2024-01-06] MEDS: SINGULAIR 10 MG PO (21:25)
[2024-01-06] MEDS: MUCINEX 600 MG PO (21:25)
[2024-01-06] MEDS: MIRALAX PO (21:26)
[2024-01-06] MEDS: ZYRTEC 10 MG PO (21:26)
[2024-01-06] MEDS: COLACE PO (21:26)
[2024-01-06] MEDS: SENOKOT PO (21:26)
[2024-01-06 23:46] VITALS: BP 98/63
[2024-01-07 06:00] VITALS: BMI 34.8
[2024-01-07 06:57] LABS: Blood Urea Nitrogen 25 mg/dl (7-17); Calcium 9.5 mg/dl (8.4-10.2); Carbon Dioxide 35 mmol/L (22-30); Chloride 90 mmol/L (98-107); Estimated Creatinine Clearance 81 ml/min; Glucose 127 mg/dl (70-99); Potassium 3.8 mmol/L (3.5-5.1); Sodium 137 mmol/L (135-145); eGFR > 60.00
[2024-01-07] MEDS: ADVAIR HFA 115/21 MCG INHALER 2 PUFF INH (07:11)
[2024-01-07 07:19] VITALS: BP 111/75
--- NOTE | 2024-01-07 08:32 | W.PN.HOSP.TC ---
Today's Communication/Plan
-
Patient refusing to provide financials for nursing facility placement
She is competent to make her own medical decisions
She wants to be discharged home with visiting nurses tomorrow
Assessment / Plan
Assessment / Plan
HPI: 59-year-old female past medical history of permanent atrial fibrillation on Eliquis, HFrEF, chronic hypotension, hyponatremia, chronic hypoxic respiratory failure on 2 L baseline, asthma, obstructive sleep apnea, history of CVA, breast cancer,
chronic ambulatory dysfunction wheelchair-bound, obesity, GERD, hypercholesterolemia, anxiety; presented with chest congestion and shortness of breath for the past few days. Shortness of breath was worse when she lies down in certain positions. She
has slight cough. She denies any fevers or chills. She denies any lower extremity edema or weight gain. She has chronic lower back pain.
[facility] however she could not take care of herself at home. She cannot get herself to the bathroom and has been soiling herself.
She is a former smoker. She denies alcohol use.
A/P:
# Chronic ambulatory dysfunction, wheelchair-bound
Patient cannot get herself to the bathroom and has been soiling herself at home
Despite this, she is refusing to provide financial info for nursing facility placement
She is competent to make her own medical decisions
She wants to be discharged home with visiting nurses tomorrow
# Dyspnea secondary to mild acute on chronic HFrEF exacerbation/deconditioning from multiple recent hospitalizations
Recent Echo from 10/2023: Mildly reduced left ventricular systolic function. EF 45%. Moderate mitral stenosis.
Chest x-ray on admission showed increased reticulonodular markings within both lungs with cardiomegaly
Cardiac BNP of 7700
Weight down considerably status post IV Lasix and metolazone
Will resume Lasix 80 mg p.o. twice daily
Continue dapagliflozin, spironolactone
# Hypokalemia secondary to Lasix
Repleted and resolved
# Permanent atrial fibrillation
Continue Eliquis
# Constipation
Increased laxatives
# Chronic hypotension
Continue midodrine
# Chronic hyponatremia
Mild, monitor
# Allergic asthma
Continue inhalers
Continue montelukast
# Obstructive sleep apnea
# Chronic hypoxic respiratory failure on 2 L baseline
# History of esophagitis
# GERD
Continue Protonix
Continue sucralfate
# History of CVA
# Hypercholesterolemia
Continue statin
# Anxiety
# History of breast cancer
# Obesity secondary to excess calories
# Chronic lower back pain
Continue gabapentin
DVT prophylaxis�Eliquis
DNR
Updated dtr on phone 01/03
Total time spent to see the patient on the floor, examine the patient, review data and lab results, discuss treatment plan with patient, nursing staff around 51 minutes.
Physical Exam
General: Morbidly obese, no acute distress
HEENT: Normocephalic, Atraumatic, EOMI, MMM
Respiratory: Diminished breath sounds at the bases
Cardiac: Normal S1/S2, Regular Rate and Rhythm
GI: Soft, Nontender, Nondistended, Normal Bowel Sounds
Extremities: No Clubbing, Cyanosis, or Edema
Neuro: Nonfocal/Grossly Intact
Psych: Calm, Cooperative
Anticipated Discharge: Within 24 hours
Subjective/Interval History
-
Date of Service: January 07, 2024
Patient's breathing is at baseline. She has chronic shortness of breath. No fever, no vomiting.
Objective Data
-
Labs:
Laboratory Results
01/07/24
04:32
Sodium 137
Potassium 3.8
Chloride 90 L
Carbon Dioxide 35 H
BUN 25 H
Creatinine 0.8
Glucose 127 H
Calcium 9.5
Vital Signs:
Vital Signs
Temp Pulse Resp BP Pulse Ox
97.1 F 70 22 111/75 95
01/07/24 07:19 01/07/24 07:19 01/07/24 07:19 01/07/24 07:19 01/07/24 07:19
I&O
01/06/24 01/07/24 01/08/24
06:59 06:59 06:59
Intake Total 1040 / 1040 840 / 840
Balance 1040 / 1040 840 / 840
[2024-01-07] MEDS: ProAmatine 10 MG PO ×2 (08:46→16:22)
[2024-01-07] MEDS: PROTONIX 40 MG PO (08:50)
[2024-01-07] MEDS: CARAFATE 1 GRAM PO (08:50)
[2024-01-07] MEDS: THERAGRAN PO (08:50)
[2024-01-07] MEDS: ALDACTONE 25 MG PO (08:50)
[2024-01-07] MEDS: ELIQUIS 5 MG PO ×2 (08:50→22:31)
[2024-01-07] MEDS: COLACE 100 MG PO (08:50)
[2024-01-07] MEDS: FARXIGA 10 MG PO (08:50)
[2024-01-07] MEDS: LASIX 80 MG IV (08:51)
[2024-01-07] MEDS: KCL 40 MEQ PO ×3 (08:51→22:32)
[2024-01-07] MEDS: MIRALAX 17 GRAMS PO (08:52)
[2024-01-07] MEDS: OCEAN, SALINE MIST 2 SPRAYS NASAL ×2 (08:52→17:17)
--- NOTE | 2024-01-07 09:08 | CM ---
met with patient at bedside.she was adamant that she will not give a financial statement and wants to go home.she ststes she has a lot of friends/support from [facility] and she will do okay when dc home.i referral for vn/home pt/ot/social
services called to fatim[facility] lucero for [facility].
i gave patient a list of homemakers/caregivers to call for additional help at home.did relay this information to the attending doctor.
I contacted lupis at [facility] dept of aging about patient's inability to take care of herself and insisting she wants to dc home.lupis will give info to her filing and polishing supervisor.lupis states it is up to discretion of [facility] about dc patient to
home.Plan dc home with [facility].
[2024-01-07] MEDS: REFRESH EYE DROPS (PF) 2 DROPS BOTH EYES ×2 (09:17→15:14)
[2024-01-07] MEDS: OCEAN, SALINE MIST NASAL ×2 (14:53→22:30)
[2024-01-07] MEDS: LASIX 80 MG PO (15:14)
[2024-01-07 15:26] VITALS: BP 101/71
--- NOTE | 2024-01-07 17:13 | CM ---
Spoke with pt in room.
Pt said she will go home with [facility] .
Pt will not provide financial to [facility] .
Pt has used up her medicare days.
As noted [facility] notified.
PLAN Home with [facility]
[2024-01-07] MEDS: ADVAIR HFA 115/21 MCG INHALER INH (19:23)
[2024-01-07] MEDS: BENADRYL 6.25 MG IV (22:12)
[2024-01-07] MEDS: MIRALAX PO (22:28)
[2024-01-07] MEDS: CRESTOR PO (22:30)
[2024-01-07] MEDS: CARAFATE PO (22:30)
[2024-01-07] MEDS: MUCINEX PO (22:30)
[2024-01-07] MEDS: COLACE PO (22:30)
[2024-01-07] MEDS: SENOKOT PO (22:31)
[2024-01-07] MEDS: ZYRTEC PO (22:31)
[2024-01-07] MEDS: SINGULAIR PO (22:31)
[2024-01-07] MEDS: REFRESH EYE DROPS (PF) BOTH EYES (22:31)
[2024-01-07] MEDS: PROTONIX PO (22:32)
[2024-01-07] MEDS: NEURONTIN 300 MG PO (22:32)
[2024-01-07 23:40] VITALS: BP 126/80
[2024-01-08 06:00] VITALS: BMI 35.1
[2024-01-08 07:00] VITALS: BP 98/71
[2024-01-08] MEDS: ProAmatine 10 MG PO (07:53)
[2024-01-08] MEDS: MIRALAX 17 GRAMS PO ×2 (07:53→19:35)
[2024-01-08] MEDS: ALDACTONE 25 MG PO (07:57)
[2024-01-08] MEDS: REFRESH EYE DROPS (PF) 2 DROPS BOTH EYES ×3 (07:58→21:21)
[2024-01-08] MEDS: FARXIGA 10 MG PO (07:58)
[2024-01-08] MEDS: KCL 40 MEQ PO ×4 (07:58→21:20)
[2024-01-08] MEDS: PROTONIX 40 MG PO ×2 (07:58→19:35)
[2024-01-08] MEDS: ELIQUIS 5 MG PO ×2 (07:58→19:35)
[2024-01-08] MEDS: LASIX 80 MG PO ×2 (07:59→16:38)
[2024-01-08] MEDS: THERAGRAN 1 TABLET PO (07:59)
[2024-01-08] MEDS: COLACE 100 MG PO ×2 (07:59→19:35)
[2024-01-08] MEDS: OCEAN, SALINE MIST 2 SPRAYS NASAL ×2 (07:59→13:39)
[2024-01-08] MEDS: CARAFATE 1 GRAM PO ×2 (07:59→19:35)
--- NOTE | 2024-01-08 08:07 | W.PN.HOSP.TC ---
Today's Communication/Plan
-
Discharge home with home care
Assessment / Plan
Assessment / Plan
HPI: 59-year-old female past medical history of permanent atrial fibrillation on Eliquis, HFrEF, chronic hypotension, hyponatremia, chronic hypoxic respiratory failure on 2 L baseline, asthma, obstructive sleep apnea, history of CVA, breast cancer,
chronic ambulatory dysfunction wheelchair-bound, obesity, GERD, hypercholesterolemia, anxiety; presented with chest congestion and shortness of breath for the past few days. Shortness of breath was worse when she lies down in certain positions. She
has slight cough. She denies any fevers or chills. She denies any lower extremity edema or weight gain. She has chronic lower back pain.
[facility] to her private residence however she could not take care of herself at home. She cannot get herself to the bathroom and has been soiling herself.
She is a former smoker. She denies alcohol use.
A/P:
# Chronic ambulatory dysfunction, wheelchair-bound
# Inability to care for oneself
Patient cannot get herself to the bathroom and has been soiling herself at home
Despite this, she is refusing to provide financial info for nursing facility placement
She is competent to make her own medical decisions
Medically stable for discharge home with home care
# Dyspnea secondary to mild acute on chronic HFrEF exacerbation/deconditioning from multiple recent hospitalizations
Recent Echo from 10/2023: Mildly reduced left ventricular systolic function. EF 45%. Moderate mitral stenosis.
Chest x-ray on admission showed increased reticulonodular markings within both lungs with cardiomegaly
Cardiac BNP of 7700
Weight down considerably status post IV Lasix and metolazone
Continue Lasix 80 mg p.o. twice daily
Continue dapagliflozin, spironolactone
# Hypokalemia secondary to Lasix
Continue potassium supplements 40 mEq 3 times daily
# Permanent atrial fibrillation
Continue Eliquis
# Constipation
Increased laxatives
# Chronic hypotension
Continue midodrine
# Chronic hyponatremia
Mild, monitor
# Allergic asthma
Continue inhalers
Continue montelukast
# Obstructive sleep apnea
# Chronic hypoxic respiratory failure on 2 L baseline
# History of esophagitis
# GERD
Continue Protonix
Continue sucralfate
# History of CVA
# Hypercholesterolemia
Continue statin
# Anxiety
# History of breast cancer
# Obesity secondary to excess calories
# Chronic lower back pain
Continue gabapentin
DVT prophylaxis�Eliquis
DNR
Updated dtr on phone 01/03
Total time spent to see the patient on the floor, examine the patient, review data and lab results, discuss treatment plan with patient, nursing staff around 41 minutes.
Physical Exam
General: Morbidly obese, no acute distress
HEENT: Normocephalic, Atraumatic, EOMI, MMM
Respiratory: Diminished breath sounds at the bases
Cardiac: Normal S1/S2, Regular Rate and Rhythm
GI: Soft, Nontender, Nondistended, Normal Bowel Sounds
Extremities: No Clubbing, Cyanosis, or Edema
Neuro: Nonfocal/Grossly Intact
Psych: Calm, Cooperative
Anticipated Discharge: Today
Subjective/Interval History
-
Date of Service: January 08, 2024
Patient's shortness of breath is at baseline. No fever, no vomiting.
Objective Data
-
Labs:
Laboratory Results
01/08/24
08:03
Sodium Pending
Potassium Pending
Chloride Pending
Carbon Dioxide Pending
BUN Pending
Creatinine Pending
Glucose Pending
Calcium Pending
Vital Signs:
Vital Signs
Temp Pulse Resp BP Pulse Ox
98.3 F 75 20 117/63 97
01/07/24 23:40 01/08/24 07:59 01/07/24 23:40 01/08/24 07:59 01/07/24 23:40
I&O
01/07/24 01/08/24 01/09/24
06:59 06:59 06:59
Intake Total 840 / 840 1440 / 1440
Balance 840 / 840 1440 / 1440
[2024-01-08] MEDS: ADVAIR HFA 115/21 MCG INHALER 2 PUFF INH ×2 (08:17→20:29)
[2024-01-08 10:52] LABS: Blood Urea Nitrogen 28 mg/dl (7-17); Calcium 9.5 mg/dl (8.4-10.2); Carbon Dioxide 34 mmol/L (22-30); Chloride 88 mmol/L (98-107); Estimated Creatinine Clearance 81 ml/min; Glucose 196 mg/dl (70-99); Potassium 3.3 mmol/L (3.5-5.1); Sodium 133 mmol/L (135-145); eGFR > 60.00
--- NOTE | 2024-01-08 11:39 | CM ---
Luciana has been ready for discharge and has been refusing to go home. FLASH met with her today; she had been given the IMM yesterday, however did not call the [facility] to appeal her discharge. I provided assistance to Luciana to make the call to the
[facility] to appeal her discharge and made sure she understood that she will be responsible for the hospital charges if the [facility] agrees that she is ready for discharge.
FLASH will continue to follow; await request from [facility] for records to be reviewed.
[2024-01-08 14:48] LABS: NT-proBNP 5690 pg/ml
[2024-01-08 15:00] VITALS: BP 111/62
--- NOTE | 2024-01-08 15:09 | CM ---
Discharge appeal notification to Martina Chowdhury called and appealed; [facility] notification received and record compiled; records sent via fax to [phone]. Case Control ID: [id number]
[2024-01-08] MEDS: ProAmatine PO (16:39)
[2024-01-08] MEDS: OCEAN, SALINE MIST NASAL (17:13)
[2024-01-08] MEDS: MUCINEX 600 MG PO (21:20)
[2024-01-08] MEDS: ZYRTEC 10 MG PO (21:20)
[2024-01-08] MEDS: OCEAN, SALINE MIST 1 SPRAYS NASAL (21:20)
[2024-01-08] MEDS: NEURONTIN 300 MG PO (21:20)
[2024-01-08] MEDS: CRESTOR 20 MG PO (21:20)
[2024-01-08] MEDS: SENOKOT 17.2 MG PO (21:20)
[2024-01-08] MEDS: SINGULAIR 10 MG PO (21:20)
[2024-01-08] MEDS: MILK OF MAGNESIA 30 ML PO (21:21)
[2024-01-08] MEDS: MELATONIN 5 MG PO (23:00)
[2024-01-08 23:36] VITALS: BP 104/67
[2024-01-09] MEDS: DULCOLAX 10 MG RECTAL (05:46)
--- NOTE | 2024-01-09 07:29 | W.PN.HOSP.TC ---
Today's Communication/Plan
-
see bold
Assessment / Plan
Assessment / Plan
HPI: 59-year-old female past medical history of permanent atrial fibrillation on Eliquis, HFrEF, chronic hypotension, hyponatremia, chronic hypoxic respiratory failure on 2 L baseline, asthma, obstructive sleep apnea, history of CVA, breast cancer,
chronic ambulatory dysfunction wheelchair-bound, obesity, GERD, hypercholesterolemia, anxiety; presented with chest congestion and shortness of breath for the past few days. Shortness of breath was worse when she lies down in certain positions. She
has slight cough. She denies any fevers or chills. She denies any lower extremity edema or weight gain. She has chronic lower back pain.
[facility] however she could not take care of herself at home. She cannot get herself to the bathroom and has been soiling herself.
She is a former smoker. She denies alcohol use.
A/P:
# Chronic ambulatory dysfunction, wheelchair-bound
# Inability to care for oneself
Patient cannot get herself to the bathroom and has been soiling herself at home
Despite this, she is refusing to provide financial info for nursing facility placement
She is competent to make her own medical decisions
She has been discharged on 01/07, she appealed
# Dyspnea secondary to mild acute on chronic HFrEF exacerbation/deconditioning from multiple recent hospitalizations
Recent Echo from 10/2023: Mildly reduced left ventricular systolic function. EF 45%. Moderate mitral stenosis.
Chest x-ray on admission showed increased reticulonodular markings within both lungs with cardiomegaly
Cardiac BNP of 7700
Weight down considerably status post IV Lasix and metolazone
Continue Lasix 80 mg p.o. twice daily
Continue dapagliflozin, spironolactone
# Hypokalemia secondary to Lasix
She refused her blood work this morning
Continue potassium supplements 40 mEq 3 times daily
# Permanent atrial fibrillation
Continue Eliquis
# Constipation
Increased laxatives
She had a large bowel movement 01/08
# Chronic hypotension
Continue midodrine
# Chronic hyponatremia
Mild, monitor
# Allergic asthma
Continue inhalers
Continue montelukast
# Obstructive sleep apnea
# Chronic hypoxic respiratory failure on 2 L baseline
# History of esophagitis
# GERD
Continue Protonix
Continue sucralfate
# History of CVA
# Hypercholesterolemia
Continue statin
# Anxiety
# History of breast cancer
# Obesity secondary to excess calories
# Chronic lower back pain
Continue gabapentin
DVT prophylaxis�Eliquis
DNR
Updated dtr on phone 01/03
Total time spent to see the patient on the floor, examine the patient, review data and lab results, discuss treatment plan with patient, nursing staff around 45 minutes.
Physical Exam
General: Morbidly obese, no acute distress
HEENT: Normocephalic, Atraumatic, EOMI, MMM
Respiratory: Diminished breath sounds at the bases
Cardiac: Normal S1/S2, Regular Rate and Rhythm
GI: Soft, Nontender, Nondistended, Normal Bowel Sounds
Extremities: No Clubbing, Cyanosis, or Edema
Neuro: Nonfocal/Grossly Intact
Psych: Calm, Cooperative
Anticipated Discharge: Within 24 hours
Subjective/Interval History
-
Date of Service: January 09, 2024
Patient discharged yesterday, she appealed. She has mild abdominal pain from constipation. No fever, no vomiting.
Objective Data
-
Labs:
Laboratory Results
01/09/24
07:08
Sodium Pending
Potassium Pending
Chloride Pending
Carbon Dioxide Pending
BUN Pending
Creatinine Pending
Glucose Pending
Calcium Pending
Vital Signs:
Vital Signs
Temp Pulse Resp BP Pulse Ox
97.9 F 71 20 104/67 94
01/08/24 23:36 01/08/24 23:36 01/08/24 23:36 01/08/24 23:36 01/08/24 23:36
I&O
01/08/24 01/09/24 01/10/24
06:59 06:59 06:59
Intake Total 1440 / 1440 1440 / 1440
Balance 1440 / 1440 1440 / 1440
[2024-01-09 07:30] VITALS: BP 119/81
[2024-01-09] MEDS: ADVAIR HFA 115/21 MCG INHALER INH (08:26)
--- NOTE | 2024-01-09 08:45 | CM ---
Addendum entered by Allyson Chew 01/09/24 13:37:
Still no determination from [employer] at this time. CM following for discharge pending outcome for [facility] appeal.
Original Note:
CM continues to follow for [facility] appeal determination via Fax.
[2024-01-09] MEDS: ProAmatine PO ×2 (08:50→16:51)
[2024-01-09] MEDS: THERAGRAN PO (08:51)
[2024-01-09] MEDS: ALDACTONE 25 MG PO (08:53)
[2024-01-09] MEDS: FARXIGA 10 MG PO (08:53)
[2024-01-09] MEDS: KCL 40 MEQ PO ×3 (08:53→21:23)
[2024-01-09] MEDS: ELIQUIS 5 MG PO ×2 (08:53→21:22)
[2024-01-09] MEDS: CARAFATE 1 GRAM PO ×2 (08:53→21:21)
[2024-01-09] MEDS: COLACE 100 MG PO ×2 (08:54→21:22)
[2024-01-09] MEDS: OCEAN, SALINE MIST 50 SPRAYS NASAL (08:54)
[2024-01-09] MEDS: MIRALAX 17 GRAMS PO ×2 (08:54→21:22)
[2024-01-09] MEDS: REFRESH EYE DROPS (PF) 2 DROPS BOTH EYES ×3 (08:54→21:23)
[2024-01-09] MEDS: PROTONIX 40 MG PO ×2 (08:55→21:22)
[2024-01-09] MEDS: DUPHALAC/CHRONULAC 20 GRAMS PO (14:51)
[2024-01-09] MEDS: OCEAN, SALINE MIST 2 SPRAYS NASAL ×2 (14:51→21:23)
[2024-01-09] MEDS: SENOKOT 17.2 MG PO ×2 (14:51→21:22)
[2024-01-09] MEDS: LASIX 80 MG PO ×2 (14:52→16:51)
[2024-01-09 15:29] VITALS: BP 112/73
--- NOTE | 2024-01-09 15:41 | W.DCSUMMARY ---
Addendum entered and electronically signed by Preeti Abdul MD 01/11/24 13:31:
Patient discharged on 01/11/2024.
No new update since the dictation of this discharge summary.
Original Note:
Discharge Summary
Discharge Data
Date of Admission: 01/02/24
Date of Discharge: 01/10/24
-
Pending Results: No
Hospital Course
Discharge diagnosis:
Chronic ambulatory dysfunction, wheelchair-bound
Inability to care for oneself
Mild acute on chronic heart failure with a reduced ejection fraction
Chronic shortness of breath
Hypokalemia
Constipation
Permanent atrial fibrillation on eliquis
Obesity due to excess calories
Chronic hypotension on midodrine
Chronic hyponatremia
Obstructive sleep apnea
Chronic hypoxic respiratory failure on 2 L at baseline
Esophagitis
Gastroesophageal reflux disease
Hospital course:
59-year-old female past medical history of permanent atrial fibrillation on Eliquis, HFrEF, chronic hypotension, hyponatremia, chronic hypoxic respiratory failure on 2 L baseline, asthma, obstructive sleep apnea, history of CVA, breast cancer,
chronic ambulatory dysfunction/wheelchair-bound, obesity, GERD, hypercholesterolemia, and anxiety was admitted for mild acute on chronic heart failure with a reduced ejection fraction. Patient has chronic shortness of breath, and is on 2 L of
oxygen at baseline. She was diuresed with IV Lasix and metolazone. Her weight decreased to 101 kg, which is lower than her previous. Her dry weight is 104 kg. She was transitioned back to Lasix 80 mg p.o. twice daily.
Patient has chronic ambulatory dysfunction, and is wheelchair-bound. She lives alone. She was released from [facility] back to her private residence on 12/30/2023. ER staff reports that she could not get herself to the bathroom, has
been soiling herself, and came to the ER 12/31/2023.
I discussed with patient's daughter on the phone, who stated that [facility] re[facility] released her because she was refusing to participate in therapy. She is out of rehab days. She is refusing to give her financial information to the
shoe parts caser to see if she could qualify for financial assistance. She is medically competent. She is discharged from the hospital on 01/08/2024, but has appealed. She remains medically stable for discharge. It is an unfortunate situation where
she lives alone, and likely will return to the hospital for one reason or another.
Disposition: Home with home care
Discharge planning: Required 65 minutes
Discharge Plan
-
Patient Disposition: Home with Home Care
Discharge Diagnosis/Procedures: Chronic heart failure at baseline, ambulatory dysfunction, wheelchair-bound status, inability to care for self, obesity due to excess calories
Condition: Fair
Diet: Low Fat, Low Cholesterol and Restrict fluids to 48 oz
Activity: As tolerated
Driving Restrictions: No driving
Instructions: *PCP/Other Building Supervisor Heart Failure Instructions
Referrals:
UNKNOWN - PT DOES,NOT KNOW [Family Provider] -
Prescriptions:
Continued
montelukast 10 mg Tablet
10 mg PO HS
Eliquis 5 mg Tablet
5 mg PO BID Qty: 60 0RF
rosuvastatin 20 mg Tablet
20 mg PO HS
fluticasone propion-salmeterol [Wixela Inhub] 250-50 mcg/dose Blister With Device
2 inh INHALATION R BID
therapeutic multivitamin Tablet
1 tab PO DAILY Qty: 0
midodrine 10 mg tablet
10 mg PO BID
spironolactone [Aldactone] 25 mg tablet
25 mg PO DAILY
pantoprazole 40 mg Tablet,Delayed Release (Dr/Ec)
40 mg PO BID Qty: 60 0RF
dapagliflozin propanediol 10 mg Tablet
10 mg PO DAILY Qty: 0 0RF
acetaminophen 325 mg Tablet
650 mg PO Q4HPRN MDD 3000 mg PRN (Reason: mild pain/BURROWS/temp>100.5) Qty: 0 0RF
gabapentin 300 mg Capsule
300 mg PO HS Qty: 0 0RF
guaifenesin 200 mg Tablet
600 mg PO HS
magnesium hydroxide [Milk of Magnesia] 400 mg/5 mL Suspension
30 ml PO [id number] PRN (Reason: no bm 3 days)
bisacodyl [Dulcolax (bisacodyl)] 10 mg Suppository
10 mg [place] DAILYPRN PRN (Reason: mom ineffective)
Fleet Enema 19-7 gram/118 mL Enema
118 ml [place] DAILYPRN PRN (Reason: if dulcolax ineffective)
docusate sodium 100 mg Capsule
100 mg PO BID
fluticasone propionate 50 mcg/actuation [place],Suspension
1 spray INTRANASAL DAILY
Artificial Tears (PF) Dropperette
2 drp BOTH EYES TID
Zyrtec 10 mg Capsule
10 mg PO HS
sucralfate 1 gram tablet
1 g PO BID
furosemide [Lasix] 80 mg tablet
80 mg PO BID
potassium chloride 20 mEq tablet extended release
40 meq PO TID
Discharge Orders:
Discharge Patient (As Directed); Ordered 01/08/24
Ordered By: Grady Hawthorne
Discharge Date and Time
Print Language: KISWAHILI
[2024-01-09] MEDS: OCEAN, SALINE MIST 1 SPRAYS NASAL (17:08)
--- NOTE | 2024-01-09 18:35 | PTCARENOTE ---
Pt refused AM chemistry lab work. Education was provided, pt stated' i tired of everybody poking me around'
[2024-01-09] MEDS: ADVAIR HFA 115/21 MCG INHALER 2 PUFF INH (19:39)
[2024-01-09] MEDS: CRESTOR 20 MG PO (21:22)
[2024-01-09] MEDS: ZYRTEC 10 MG PO (21:23)
[2024-01-09] MEDS: MUCINEX 600 MG PO (21:23)
[2024-01-09] MEDS: NEURONTIN 300 MG PO (21:23)
[2024-01-09] MEDS: SINGULAIR 10 MG PO (21:23)
[2024-01-09 23:34] VITALS: BP 107/73
[2024-01-10 06:00] VITALS: BMI 35.3
[2024-01-10 07:12] LABS: Blood Urea Nitrogen 28 mg/dl (7-17); Calcium 9.6 mg/dl (8.4-10.2); Carbon Dioxide 33 mmol/L (22-30); Chloride 93 mmol/L (98-107); Estimated Creatinine Clearance 82 ml/min; Glucose 113 mg/dl (70-99); Potassium 4.2 mmol/L (3.5-5.1); Sodium 137 mmol/L (135-145); eGFR > 60.00
[2024-01-10] MEDS: ADVAIR HFA 115/21 MCG INHALER 2 PUFF INH ×2 (07:30→19:18)
[2024-01-10 07:31] VITALS: BP 95/66
[2024-01-10] MEDS: ALDACTONE PO (09:29)
[2024-01-10] MEDS: ProAmatine 10 MG PO (09:30)
[2024-01-10] MEDS: FARXIGA 10 MG PO (09:30)
[2024-01-10] MEDS: DUPHALAC/CHRONULAC 20 GRAMS PO (09:30)
[2024-01-10] MEDS: SENOKOT 17.2 MG PO ×2 (09:31→20:45)
[2024-01-10] MEDS: PROTONIX 40 MG PO ×2 (09:31→20:45)
[2024-01-10] MEDS: CARAFATE 1 GRAM PO ×2 (09:31→20:44)
[2024-01-10] MEDS: THERAGRAN 1 TABLET PO (09:31)
[2024-01-10] MEDS: REFRESH EYE DROPS (PF) 2 DROPS BOTH EYES ×3 (09:32→22:42)
[2024-01-10] MEDS: COLACE 100 MG PO ×2 (09:32→20:44)
[2024-01-10] MEDS: ELIQUIS 5 MG PO ×2 (09:32→20:45)
[2024-01-10] MEDS: KCL 40 MEQ PO ×3 (09:33→22:41)
[2024-01-10] MEDS: MIRALAX 17 GRAMS PO ×2 (09:37→20:47)
[2024-01-10] MEDS: OCEAN, SALINE MIST 2 SPRAYS NASAL (09:37)
--- NOTE | 2024-01-10 10:41 | W.PN.HOSP.TC ---
Today's Communication/Plan
-
see A/P
Assessment / Plan
Assessment / Plan
HPI: 59-year-old female past medical history of permanent atrial fibrillation on Eliquis, HFrEF, chronic hypotension, hyponatremia, chronic hypoxic respiratory failure on 2 L baseline, asthma, obstructive sleep apnea, history of CVA, breast cancer,
chronic ambulatory dysfunction wheelchair-bound, obesity, GERD, hypercholesterolemia, anxiety; presented with chest congestion and shortness of breath for the past few days. Shortness of breath was worse when she lies down in certain positions. She
has slight cough. She denies any fevers or chills. She denies any lower extremity edema or weight gain. She has chronic lower back pain.
[facility] however she could not take care of herself at home. She cannot get herself to the bathroom and has been soiling herself.
She is a former smoker. She denies alcohol use.
A/P:
# Chronic ambulatory dysfunction, wheelchair-bound
# Inability to care for oneself
Patient cannot get herself to the bathroom and has been soiling herself at home
Despite this, she is refusing to provide financial info for nursing facility placement
She is competent to make her own medical decisions
She has been discharged on 01/07, she appealed, her appeal was denied
# Dyspnea secondary to mild acute on chronic HFrEF exacerbation/deconditioning from multiple recent hospitalizations
Recent Echo from 10/2023: Mildly reduced left ventricular systolic function. EF 45%. Moderate mitral stenosis.
Chest x-ray on admission showed increased reticulonodular markings within both lungs with cardiomegaly
Cardiac BNP of 7700
Weight down considerably status post IV Lasix and metolazone
Continue Lasix 80 mg p.o. twice daily (hold for SBP < 110)
Continue dapagliflozin, spironolactone
# Hypokalemia secondary to Lasix
Continue potassium supplements 40 mEq 3 times daily
# Permanent atrial fibrillation
Continue Eliquis
# Constipation
Increased laxatives
She had a large bowel movement 01/08
# Chronic hypotension
Continue midodrine
# Chronic hyponatremia
Mild, monitor
# Allergic asthma
Continue inhalers
Continue montelukast
# Obstructive sleep apnea
# Chronic hypoxic respiratory failure on 2 L baseline
# History of esophagitis
# GERD
Continue Protonix
Continue sucralfate
# History of CVA
# Hypercholesterolemia
Continue statin
# Anxiety
# History of breast cancer
# Obesity secondary to excess calories
# Chronic lower back pain
Continue gabapentin
DVT prophylaxis�Eliquis
DNR
Dr Hawthorne updated dtr on phone 01/03
DW CM
Anticipated Discharge: Today
Subjective/Interval History
-
Date of Service: January 10, 2024
Objective Data
-
Labs:
Laboratory Results
01/10/24
04:41
Sodium 137
Potassium 4.2 D
Chloride 93 L
Carbon Dioxide 33 H
BUN 28 H
Creatinine 0.8
Glucose 113 H
Calcium 9.6
Vital Signs:
Vital Signs
Temp Pulse Resp BP Pulse Ox
36.4 C 90 16 95/66 94
01/10/24 07:31 01/10/24 09:30 01/10/24 07:32 01/10/24 09:30 01/10/24 07:31
I&O
01/09/24 01/10/24 01/11/24
06:59 06:59 06:59
Intake Total 1440 / 1440 800 / 800
Balance 1440 / 1440 800 / 800
Review of Systems
-
All other systems: Reviewed and negative
Physical Exam
-
General: Well Developed, Well Nourished, Comfortable, Respiratory Distress (chronic), Appears Chronically Ill and Morbidly Obese
HEENT: Normocephalic, Atraumatic and Oxygen (2l NC)
Respiratory: Non Labored Respirations; Negative Wheezes or Accessory Resp Muscle Use
Cardiac: Regular Rhythm and S1/S2
GI: Soft, Nontender, Nondistended and Normal Bowel Sounds
Musculoskeletal: No Clubbing and No Cyanosis; Negative Edema, Right Lower Extrem or Edema, Left Lower Extrem
Skin: Warm
Neuro: Awake and Alert
Psych: Calm and Intact Judgement/Insight
Data Reviewed
-
Diagnostic Radiology: Image personally visualized and interpreted and Report Reviewed by me
Labs: Labs Reviewed by me
[2024-01-10] MEDS: LASIX PO (12:49)
[2024-01-10] MEDS: OCEAN, SALINE MIST NASAL ×3 (14:09→23:08)
--- NOTE | 2024-01-10 14:55 | CM ---
received fax from [facility] upholding discharge.i sent TT to doctor and spoke with patient about arranging stretcher transport home.patient told cm she could not go home today because she has no one to care for her.i explained to patient that she has
known about this upcoming discharge and also had a list of caretakers she could hire to assist hr.she also was offered snf but did not comply with financial statements.
i also explained that she will start paying the hospital bill starting today unless she discharged.i called mal hidalgo cm manager general who said patient will stay today and cm can ask financial services if they can speak with patient about the
hospital bill.i sent copy of mal's reply to attending.Plan:dc home when able.
[2024-01-10 15:18] VITALS: BP 112/71
[2024-01-10] MEDS: ProAmatine PO (16:06)
[2024-01-10] MEDS: LASIX 80 MG PO (16:06)
[2024-01-10] MEDS: CRESTOR 20 MG PO (22:41)
[2024-01-10] MEDS: SINGULAIR 10 MG PO (22:42)
[2024-01-10] MEDS: NEURONTIN 300 MG PO (22:42)
[2024-01-10] MEDS: ZYRTEC 10 MG PO (22:42)
[2024-01-10] MEDS: MUCINEX 600 MG PO (22:42)
[2024-01-10 23:23] VITALS: BP 101/66
[2024-01-11 06:00] VITALS: BMI 34.9
[2024-01-11 07:00] VITALS: BP 102/66
[2024-01-11] MEDS: ADVAIR HFA 115/21 MCG INHALER 2 PUFF INH (08:12)
[2024-01-11 08:21] LABS: Blood Urea Nitrogen 24 mg/dl (7-17); Calcium 9.4 mg/dl (8.4-10.2); Carbon Dioxide 30 mmol/L (22-30); Chloride 94 mmol/L (98-107); Estimated Creatinine Clearance 81 ml/min; Glucose 131 mg/dl (70-99); Potassium 4.4 mmol/L (3.5-5.1); Sodium 136 mmol/L (135-145); eGFR > 60.00
[2024-01-11] MEDS: MIRALAX 17 GRAMS PO (08:52)
[2024-01-11] MEDS: REFRESH EYE DROPS (PF) 2 DROPS BOTH EYES (08:52)
[2024-01-11] MEDS: ProAmatine 10 MG PO (08:52)
[2024-01-11] MEDS: PROTONIX 40 MG PO (08:52)
[2024-01-11] MEDS: SENOKOT 17.2 MG PO (08:52)
[2024-01-11] MEDS: DUPHALAC/CHRONULAC 20 GRAMS PO (08:52)
[2024-01-11] MEDS: KCL 40 MEQ PO (08:52)
[2024-01-11] MEDS: FARXIGA 10 MG PO (08:53)
[2024-01-11] MEDS: COLACE 100 MG PO (08:53)
[2024-01-11] MEDS: ELIQUIS 5 MG PO (08:53)
[2024-01-11] MEDS: CARAFATE 1 GRAM PO (08:53)
[2024-01-11] MEDS: THERAGRAN 1 TABLET PO (08:53)
[2024-01-11] MEDS: LASIX 80 MG PO (08:54)
[2024-01-11] MEDS: ALDACTONE PO (08:54)
[2024-01-11] MEDS: OCEAN, SALINE MIST 2 SPRAYS NASAL (08:56)
--- NOTE | 2024-01-11 10:09 | W.PN.HOSP.TC ---
Today's Communication/Plan
-
see A/P
Assessment / Plan
Assessment / Plan
HPI: 59-year-old female past medical history of permanent atrial fibrillation on Eliquis, HFrEF, chronic hypotension, hyponatremia, chronic hypoxic respiratory failure on 2 L baseline, asthma, obstructive sleep apnea, history of CVA, breast cancer,
chronic ambulatory dysfunction wheelchair-bound, obesity, GERD, hypercholesterolemia, anxiety; presented with chest congestion and shortness of breath for the past few days. Shortness of breath was worse when she lies down in certain positions. She
has slight cough. She denies any fevers or chills. She denies any lower extremity edema or weight gain. She has chronic lower back pain.
[facility] however she could not take care of herself at home. She cannot get herself to the bathroom and has been soiling herself.
She is a former smoker. She denies alcohol use.
A/P:
# Chronic ambulatory dysfunction, wheelchair-bound
# Inability to care for oneself
Patient cannot get herself to the bathroom and has been soiling herself at home
Despite this, she is refusing to provide financial info for nursing facility placement
She is competent to make her own medical decisions
She has been discharged on 01/07, she appealed, her appeal was denied
# Dyspnea secondary to mild acute on chronic HFrEF exacerbation/deconditioning from multiple recent hospitalizations
Recent Echo from 10/2023: Mildly reduced left ventricular systolic function. EF 45%. Moderate mitral stenosis.
Chest x-ray on admission showed increased reticulonodular markings within both lungs with cardiomegaly
Cardiac BNP of 7700
Weight down considerably status post IV Lasix and metolazone
Continue Lasix 80 mg p.o. twice daily (hold for SBP < 110)
Continue dapagliflozin, spironolactone
# Hypokalemia secondary to Lasix
Continue potassium supplements 40 mEq 3 times daily
# Permanent atrial fibrillation
Continue Eliquis
# Constipation
Increased laxatives
She had a large bowel movement 01/08
# Chronic hypotension
Continue midodrine
# Chronic hyponatremia
Mild, monitor
# Allergic asthma
Continue inhalers
Continue montelukast
# Obstructive sleep apnea
# Chronic hypoxic respiratory failure on 2 L baseline
# History of esophagitis
# GERD
Continue Protonix
Continue sucralfate
# History of CVA
# Hypercholesterolemia
Continue statin
# Anxiety
# History of breast cancer
# Obesity secondary to excess calories
# Chronic lower back pain
Continue gabapentin
DVT prophylaxis�Eliquis
DNR
Dr Hawthorne updated dtr on phone 01/03
Anticipated Discharge: Today
Subjective/Interval History
-
Date of Service: January 11, 2024
Objective Data
-
Labs:
Laboratory Results
01/11/24
06:10
Sodium 136
Potassium 4.4
Chloride 94 L
Carbon Dioxide 30
BUN 24 H
Creatinine 0.8
Glucose 131 H
Calcium 9.4
Vital Signs:
Vital Signs
Temp Pulse Resp BP Pulse Ox
36.5 C 78 18 102/66 95
01/11/24 07:00 01/11/24 08:54 01/11/24 08:15 01/11/24 08:54 01/11/24 10:00
I&O
01/10/24 01/11/24 01/12/24
06:59 06:59 06:59
Intake Total 800 / 800 960 / 960
Balance 800 / 800 960 / 960
Review of Systems
-
All other systems: Reviewed and negative
Physical Exam
-
General: Well Developed, Well Nourished, Comfortable, Respiratory Distress (chronic), Appears Chronically Ill and Morbidly Obese
HEENT: Normocephalic, Atraumatic and Oxygen (2l NC)
Respiratory: Non Labored Respirations; Negative Wheezes or Accessory Resp Muscle Use
Cardiac: Regular Rhythm and S1/S2
GI: Soft, Nontender, Nondistended and Normal Bowel Sounds
Musculoskeletal: No Clubbing and No Cyanosis; Negative Edema, Right Lower Extrem or Edema, Left Lower Extrem
Skin: Warm
Neuro: Awake and Alert
Psych: Calm and Intact Judgement/Insight
Data Reviewed
-
Diagnostic Radiology: Image personally visualized and interpreted and Report Reviewed by me
Labs: Labs Reviewed by me
[2024-01-11 11:23] VITALS: BP 113/78
--- NOTE | 2024-01-11 11:28 | CM ---
Went to speak with patient along with CM. I reviewed the outcome of her appeal with the patient, and stated that Martina is agreeing that she is stable to be discharged. I also made the patient aware that we were recommending that she go to a SNF
for short term rehab, however to do so, since she had exhausted her SNF days under Medicare, that she would need to complete financial forms for the SNF to see if she would be eligible for financial assistance. If she did not qualify that she may
need to private pay until she did qualify. She stated she wanted to be discharged home with [facility]. I told her our concern is that when she left [facility] she was unable to care for herself and that is what prompted her to come to the
hospital this stay . She stated that she was a 'mess then'and now she has a friends who will be available to assist her in her home. I stated that although we feel that it would be better for her to go to a SNF for a short period of time rather
than to go home, she has the right to make her own decisions. I asked about how she would get her meals and she said one of her friends said they would help her with that. I also reminded her of the Student Outreach Coordinator list that we had given her and that she
would need to call them directly if she would like to arrange their services since they are private pay. I also made her aware that we will be making a referral to [facility] in order for them to check in on her as well as possibly
offer additional services.
I did make her aware that based on the [facility] determination that she would be responsible for the hospital bill going forward, which is $3,000 a day plus ancillary services and that someone from the Patient Accounts department would be up to speak
with her in regards to that. Update to Hospitalist ,FLASH and Senior Channel Rougher of Patient Accounts.
[2024-01-11 11:40] VITALS: BP 113/78
[2024-01-11] MEDS: OCEAN, SALINE MIST NASAL (13:18)
[2024-01-11 14:33] VITALS: BP 108/72
--- NOTE | 2024-01-11 15:35 | CM ---
Refer to director note Chucky Costa from today.
MD discharge order in computer.
[place] upheld discharge.
Chucky Costa and this Cm spoke with patient in room .
Pt said she will go home today with [facility] ( [facility] liaison aware of dc today )
PT OT indicated SNf appropriate . PT has used Medicare days and would need to complete financial paper to be able to go to Rehab.
Pt declined to complete financial paper.
Pt has anesthesiologist and critical care list .
[facility] called with info that patient was dc to home today.Chrystal from [facility] called to saw she has met pt before and will contact her tomorrow.
PT was told [facility] was called .
She said her friend Zach can help her at home at dc today.
Pt requested ambulance On oxygen and non ambulatory.
Medical nec form completed.
PLAN Home with [facility]
Fax dc summary to [facility] fax [phone]
--- NOTE | 2024-01-14 07:52 | W.HF.CON ---
Heart Failure
- LV Function
Left ventricular function study result: LV Ejection fraction >40% (11/01/23)
Ejection Fraction Percentage: 45
- ARNI
Patient already on ARNI: No
Heart Failure ARNI Not Indicated: LV Ejection Fraction >/= 40%
- ACEI/ARB
Patient already on ACEI/ARB: No
Heart Failure ACEI/ARB Not Indicated: LV Ejection Fraction > 40%
- Beta Víctor
Patient already on Evidence Based Beta Víctor: No
Heart Failure Evidence Based Beta Víctor Not Indicated: LV Ejection Fraction > 40%
- Mineralocorticord Receptor Antagonist
Patient already on MRA: Yes
- SGLT-2 Inhibitor
Patient already on SGLT-2 Inhibitor: Yes
- Afib Anticoagulation
Patient already on Anticoagulation for Afib: Yes
- NYHA CHF Classification
NYHA CHF Classification Level: Class III - Symptoms w/ min exertion, interferes w/ nml daily activity
- ACC/AHA Stage
ACC/AHA Stage: Stage C: Symptomatic Heart Failure
== END 2024-01-11 15:36 | disposition home health service (06) | DRG 292 ==
LOC: 4 EAST ACU 11:30
PROVIDERS: Emergency Medicine; Family Medicine; Physician Assistant; ADMITTING PHYSICIAN Hospitalist; ATTENDING PHYSICIAN Internal Medicine; EMERGENCY PHYSICIAN Emergency Medicine
DX: I50.23 Acute on chronic systolic (congestive) heart failure (principal); E87.1 Hypo-osmolality and hyponatremia; I48.21 Permanent atrial fibrillation; J96.11 Chronic respiratory failure with hypoxia; E78.00 Pure hypercholesterolemia, unspecified; I95.89 Other hypotension; Z66 Do not resuscitate; G47.33 Obstructive sleep apnea (adult) (pediatric); E66.09 Other obesity due to excess calories; Z68.34 Body mass index [BMI] 34.0-34.9, adult; K21.00 Gastro-esophageal reflux disease with esophagitis, without bleeding; F41.9 Anxiety disorder, unspecified; E87.6 Hypokalemia; T50.1X5A Adverse effect of loop [high-ceiling] diuretics, initial encounter; K59.00 Constipation, unspecified; R62.7 Adult failure to thrive; J45.909 Unspecified asthma, uncomplicated; G89.29 Other chronic pain; M54.50 Low back pain, unspecified; R26.89 Other abnormalities of gait and mobility; Z79.84 Long term (current) use of oral hypoglycemic drugs; Z79.01 Long term (current) use of anticoagulants; Z99.81 Dependence on supplemental oxygen; Z99.3 Dependence on wheelchair; Z98.84 Bariatric surgery status; Z95.0 Presence of cardiac pacemaker; Z87.891 Personal history of nicotine dependence; Z86.73 Personal history of transient ischemic attack (TIA), and cerebral infarction without residual deficits; Z88.5 Allergy status to narcotic agent; Z85.3 Personal history of malignant neoplasm of breast; Z79.899 Other long term (current) drug therapy
CPT/HCPCS: 71046; 74018; 80048; 80053; 83735; 83880; 84484; 85025; 85027; 94640; 96374; 96375; 97163; 97167; 97530; 99284

== ENCOUNTER 2024-01-11 21:26 | Emergency (ER) | payer MEDICARE, OTHER, SELFPAY ==
[2024-01-11 21:28] VITALS: BMI 33.7
[2024-01-11 21:37] VITALS: BP 106/77
[2024-01-11 21:48] VITALS: BP 106/77
[2024-01-11 22:08] LABS: % Basophils 1.6 % (0-2); % Eosinophils 3.8 % (0-6); % Immature Granulocytes 0.6 % (0-0.5); % Lymphocytes 15.1 % (20.5-51.1); % Monocytes 7.8 % (1.7-9.3); % Neutrophils 71.1 % (42.2-75.2); Absolute Basophils 0.2 10^3/uL (0-0.2); Absolute Eosinophils 0.4 10^3/uL (0-0.7); Absolute Immature Granulocytes 0.1 10^3/uL (0-0.05); Absolute Lymphocytes 1.5 10^3/uL (1.2-3.4); Absolute Monocytes 0.8 10^3/uL (0.1-0.6); Hematocrit 42.7 % (37.0-47.0); Mean Corp Hgb Conc. 32.8 g/dL (33.0-37.0); Mean Corpuscular Hgb 29.6 pg (27.0-31.0); Mean Corpuscular Volume 90.3 fL (81.0-99.0); Mean Platelet Volume 9.5 fL (7.4-10.4); Nucleated Red Blood Cells % 0 %; Platelet Count 372 10^3/uL (130-400); Red Blood Cell Count 4.73 10^6/uL (4.20-5.40); Red Cell Dist. Width 17.3 % (11.5-14.5); Urine Albumin Trace (Neg - Trace); Urine Bilirubin 1+ (Negative); Urine Character Clear (Clear); Urine Color Yellow; Urine Glucose 3+ (Negative); Urine Ketone Negative (Negative); Urine Leukocyte Negative (Negative); Urine Nitrite Negative (Negative); Urine Occult Blood 2+ (Negative); Urine Urobilinogen 1+ (Neg - 1+); White Blood Cell Count 9.9 10^3/uL (4.8-10.8)
[2024-01-11 22:20] LABS: ALT (SGPT) 17 U/L (0-35); AST (SGOT) 37 U/L (14-36); Albumin 3.3 g/dl (3.5-5.0); Alkaline Phosphatase 145 U/L (38-126); Blood Urea Nitrogen 27 mg/dl (7-17); Calcium 9.6 mg/dl (8.4-10.2); Carbon Dioxide 28 mmol/L (22-30); Chloride 93 mmol/L (98-107); Glucose 125 mg/dl (70-99); Potassium 4.7 mmol/L (3.5-5.1); Sodium 132 mmol/L (135-145); Total Bilirubin 1.4 mg/dl (0.2-1.3); Total Protein 7.5 g/dl (6.3-8.2); eGFR > 60.00
[2024-01-11 22:22] LABS: Urine Hyaline Cast >15 /LPF (0-2); Urine White Cell 0-2 /HPF (0-5)
[2024-01-11 22:23] LABS: Urine Bacteria Few (Negative)
--- NOTE | 2024-01-12 02:18 | ED.GENMED ---
History of Present Illness
<Roman Mccarthy, DO - Last Filed: 01/12/24 02:24>
General
Chief Complaint: Urinary Symptoms
Source: patient and ambulance crew
Exam Limitations: none
Time Seen by Provider: 01/11/24 23:40
Nursing documentation reviewed up to this point in time: agreed with
History of Present Illness
History of Present Illness:
68-year-old female presents emergency department complaining of burning with urination. She was discharged today from [facility] for CHF exacerbation. She was found lying in urine and feces.
Past History
<Roman Mccarthy, DO - Last Filed: 01/12/24 02:24>
Past History
ED Past Medical History: Arrthythmia (Atrial fib), Asthma, Cancer (breast, Skin), CHF, CVA (TIA), GERD, HTN, Hypercholesterolemia, Psychiatric (Anxiety, PTSD), Other (RAMY, PNA, Sleep apnea, Various Vein, Peptic ulcer) and Other (mvp)
ED Past Surgical History: Cardiac (pacemaker, Ablation), Cholecystectomy, , Tonsilectomy and Other ( Left breast lumpectomy with aixllary lymph nodes, Hernia, Gastric bypass)
Social History
Tobacco: Former smoker
Alcohol: None
Drug: None
Personal: Single ('pham')
Living: alone
Employment: Not employed
Review of Systems
<Roman Mccarthy, DO - Last Filed: 01/12/24 02:24>
Review of Systems
Allergies reviewed?: Yes
All Other Systems: Not applicable
Constitutional: Reports no symptoms
EENT: Reports no symptoms
Respiratory: Reports no symptoms
Cardiac: Reports no symptoms
ABD/GI: Reports no symptoms
: Reports dysuria
Musculoskeletal: Reports no symptoms
Skin: Reports no symptoms
Neurological: Reports no symptoms
Endocrine: Reports no symptoms
Hematologic/Lymphatic: Reports no symptoms
Psychiatric: Reports no symptoms
Phy Exam
<Roman Mccarthy, DO - Last Filed: 01/12/24 02:24>
Physical Exam
Physical Exam:
Physical Exam
General: no apparent distress, not acutely ill
Neck: supple. no meningeal signs. normal posterior pharynx
Heart: s1/s2 regular rate and rhythm, no murmur. equal radial
pulses.
HEENT: Pupils equal round reactive to light, EOMI
Lungs: no acute respiratory distress. clear bilaterally
Abdomen: normal bowel sounds. not tender. no CVAT
Neuro: alert and oriented. no focal neurological deficits cranial nerves II through XII intact
Skin: no rash, stage I sacral decubitus
Psychiatric: well kept. interactive and cooperative
Extremities: no edema. no calf tenderness. negative homans. good distal pulses
Course
<Roman Mccarthy, DO - Last Filed: 01/12/24 02:24>
Orders/Labs/Results
Orders:
Orders
01/11/24 21:52
Straight Cath As Directed
Frequency: One time now
01/11/24 21:56
Complete Blood Count/With Diff Urgent
Comprehensive Metabolic Panel Urgent
Urinalysis Reflex To Culture Urgent
Date Specimen was Collected: 01/11/24
Time Specimen was Collected: 21:51
Urine Microscopic Reflex Cult Urgent
01/12/24 02:24
Case Management Consult ONCE
Case Management Consult: Custodial Placement
Abnormal Lab Results
01/11/24
21:56
MCHC 32.8 L g/dL
(33.0-37.0)
RDW 17.3 H %
(11.5-14.5)
Abs Immat Gran (auto) 0.1 H 10^3/uL
(0-0.05)
Absolute Neuts (auto) 7.0 H 10^3/uL
(1.4-6.5)
Absolute Monos (auto) 0.8 H 10^3/uL
(0.1-0.6)
Immature Gran % 0.6 H %
(0-0.5)
Lymphocytes % 15.1 L %
(20.5-51.1)
Sodium 132 L mmol/L
(135-145)
Chloride 93 L mmol/L
(98-107)
BUN 27 H mg/dl
(7-17)
Glucose 125 H mg/dl
(70-99)
Total Bilirubin 1.4 H mg/dl
(0.2-1.3)
AST 37 H U/L
(14-36)
Alkaline Phosphatase 145 H U/L
(38-126)
Albumin 3.3 L g/dl
(3.5-5.0)
Ur Occult Blood Reflex 2+ A
(Negative)
Urine Bilirubin 1+ A
(Negative)
Urine RBC 3-6 A /HPF
(0-2)
Urine Bacteria (Reflex) Few A
(Negative)
Urine Glucose 3+ A
(Negative)
01/11/24 21:56
01/11/24 21:56
Vital Signs
Initial and Last Documented VS:
Initial Vital Signs
Temp Pulse Resp BP Pulse Ox
97.8 F 74 24 106/77 99
01/11/24 21:37 01/11/24 21:37 01/11/24 21:37 01/11/24 21:37 01/11/24 21:37
Last Documented Vital Signs
Temp Pulse Resp BP Pulse Ox
97.8 F 71 17 137/108 97
01/11/24 21:37 01/12/24 11:42 01/12/24 11:42 01/12/24 11:42 01/12/24 03:36
<Handy Slade MD - Last Filed: 01/12/24 13:02>
Orders/Labs/Results
Orders:
Orders
01/11/24 21:52
Straight Cath As Directed
Frequency: One time now
01/11/24 21:56
Complete Blood Count/With Diff Urgent
Comprehensive Metabolic Panel Urgent
Urinalysis Reflex To Culture Urgent
Date Specimen was Collected: 01/11/24
Time Specimen was Collected: 21:51
Urine Microscopic Reflex Cult Urgent
01/12/24 02:24
Case Management Consult ONCE
Case Management Consult: Custodial Placement
Abnormal Lab Results
01/11/24
21:56
MCHC 32.8 L g/dL
(33.0-37.0)
RDW 17.3 H %
(11.5-14.5)
Abs Immat Gran (auto) 0.1 H 10^3/uL
(0-0.05)
Absolute Neuts (auto) 7.0 H 10^3/uL
(1.4-6.5)
Absolute Monos (auto) 0.8 H 10^3/uL
(0.1-0.6)
Immature Gran % 0.6 H %
(0-0.5)
Lymphocytes % 15.1 L %
(20.5-51.1)
Sodium 132 L mmol/L
(135-145)
Chloride 93 L mmol/L
(98-107)
BUN 27 H mg/dl
(7-17)
Glucose 125 H mg/dl
(70-99)
Total Bilirubin 1.4 H mg/dl
(0.2-1.3)
AST 37 H U/L
(14-36)
Alkaline Phosphatase 145 H U/L
(38-126)
Albumin 3.3 L g/dl
(3.5-5.0)
Ur Occult Blood Reflex 2+ A
(Negative)
Urine Bilirubin 1+ A
(Negative)
Urine RBC 3-6 A /HPF
(0-2)
Urine Bacteria (Reflex) Few A
(Negative)
Urine Glucose 3+ A
(Negative)
01/11/24 21:56
01/11/24 21:56
Vital Signs
Initial and Last Documented VS:
Initial Vital Signs
Temp Pulse Resp BP Pulse Ox
97.8 F 74 24 106/77 99
01/11/24 21:37 01/11/24 21:37 01/11/24 21:37 01/11/24 21:37 01/11/24 21:37
Last Documented Vital Signs
Temp Pulse Resp BP Pulse Ox
97.8 F 71 17 137/108 97
01/11/24 21:37 01/12/24 11:42 01/12/24 11:42 01/12/24 11:42 01/12/24 03:36
<DO Kevin Dowd Last Filed: 01/12/24 02:24>
MDM/Problems Addressed
Differential Diagnosis Includes:
UTI, sepsis
MDM/Problems Addressed:
68-year-old female with dysuria, no signs of UTI. Await case management for placement.
Chronic conditions affecting care: Cardiomyopathy and Neurological disorder
Acute Exacerbation and/or Progression of Chronic Illness: Cardiomyopathy and Neurological disorder
<DO Kevin Dowd Last Filed: 01/12/24 02:24>
*Pulse Oximetry
Patient hypoxic: no
*Critical Care Note
Total Time (30-74mins, 75-104mins- exclusive of procedures): Not Applicable
Data Reviewed
Review of Other/Old Records Reveals: Records
<DO Kevin Dowd Last Filed: 01/12/24 02:24>
Patient Management
Social determinants of health affecting care: Living situation and Poor social support
<Handy Slade MD - Last Filed: 01/12/24 13:02>
Update Note
Update Note:
1300... Patient seen by crisis. No indication for forcing her to do things against her will. She has been competent. She was recently seen in the hospital with the same discussions taking place. No indication for acute medical admission. No
findings to support UTI. Will be discharged to follow-up.
ED Attending Note
<Roman Mccarthy DO - Last Filed: 01/12/24 02:24>
-
Portions of this chart may have been created with voice recognition software.� Occasional wrong word or��sound alike� substitutions may have occurred due to the inherent limitations of voice recognition software.
Discharge Plan
Departure
Patient Disposition: Other
Date of Disposition: 01/12/24
Time of Disposition: 02:24
Consults for patient: Case Management
Condition: Good
Discharge Problem:
Dysuria
Prescriptions:
No Action
montelukast 10 mg Tablet
10 mg PO HS
Eliquis 5 mg Tablet
5 mg PO BID Qty: 60 0RF
rosuvastatin 20 mg Tablet
20 mg PO HS
fluticasone propion-salmeterol [Wixela Inhub] 250-50 mcg/dose Blister With Device
2 inh INHALATION R BID
therapeutic multivitamin Tablet
1 tab PO DAILY Qty: 0
midodrine 10 mg tablet
10 mg PO BID
spironolactone [Aldactone] 25 mg tablet
25 mg PO DAILY
pantoprazole 40 mg Tablet,Delayed Release (Dr/Ec)
40 mg PO BID Qty: 60 0RF
dapagliflozin propanediol 10 mg Tablet
10 mg PO DAILY Qty: 0 0RF
acetaminophen 325 mg Tablet
650 mg PO Q4HPRN MDD 3000 mg PRN (Reason: mild pain/BURROWS/temp>100.5) Qty: 0 0RF
gabapentin 300 mg Capsule
300 mg PO HS Qty: 0 0RF
guaifenesin 200 mg Tablet
600 mg PO HS
magnesium hydroxide [Milk of Magnesia] 400 mg/5 mL Suspension
30 ml PO [id number] PRN (Reason: no bm 3 days)
bisacodyl [Dulcolax (bisacodyl)] 10 mg Suppository
10 mg DE DAILYPRN PRN (Reason: mom ineffective)
Fleet Enema 19-7 gram/118 mL Enema
118 ml DE DAILYPRN PRN (Reason: if dulcolax ineffective)
docusate sodium 100 mg Capsule
100 mg PO BID
fluticasone propionate 50 mcg/actuation Brandon,Suspension
1 spray INTRANASAL DAILY
Artificial Tears (PF) Dropperette
2 drp BOTH EYES TID
Zyrtec 10 mg Capsule
10 mg PO HS
sucralfate 1 gram tablet
1 g PO BID
furosemide [Lasix] 80 mg tablet
80 mg PO BID
potassium chloride 20 mEq tablet extended release
40 meq PO TID
Referrals:
Qiana Rodriguez MD [Family Provider] -
Interventions
Interventions:
*Risk Screen - Suicide Last Done: 01/11/24 21:28
*General Assessment Last Done: 01/11/24 21:28
*Neglect/Abuse Screening Last Done: 01/11/24 21:28
*ED COVID-19 Vaccine History Last Done: 01/11/24 21:28
ED-Female Genitourinary Assessment Last Done: 01/11/24 22:04
Discharge Date and Time
Print Language: AZERI
--- NOTE | 2024-01-12 03:14 | EDRN ---
this rn heard pt moaning and groaning from hallway. this rn entered room to find pt turning self to other side with most of her blankets kicked off, purewick still in place, foam dressing on heels has been kicked off. pt complaining of being cold
repeatedly. pt reports that she feels wet despite purewick being in place and draining. pt brief changed, no urine noted in brief only barrier cream that was applied earlier. pt again repeatedly complaining that it is cold. pt given multiple warm
blankets. pt also asking when she is moving upstairs to her room, pt informed that she is not going to a bed upstairs. pt angry and upset that she is not going upstairs, stating 'i know there are beds upstairs, i was there upstairs this afternoon
and there were plenty of beds.' informed pt that she is not admitted to the hospital and will be staying in the emergency department to meet with case management in the morning. pt verbally upset over not going upstairs, pt asking why she is not
being admitted. explained to patient again that there is not an acute medical reason for her to stay, but she needs to stay to be seen by case management so that she can be safely discharged. pt again complaining about not being admitted, about not
going upstairs to a room, about staying in the emergency room, that her back and butt still hurt, and that she is still cold. pt given more blankets and lights turned off for patient comfort.
[2024-01-12 03:36] VITALS: BP 101/60
--- NOTE | 2024-01-12 10:11 | CM ---
Addendum entered by Virginia Arguello 01/12/24 13:30:
Spoke with Henrietta at [facility]. Henrietta collected several pieces of demographic information and CM reported an unsafe d/c for patient.
Addendum entered by Virginia Arguello 01/12/24 11:13:
Shira, Director of CM department spoke with patient about the safety concerns of patient going back home alone. Patient stated that [facility] will be there for support. She also has a friend named Zach, who is a pool boy. Shira explained to
patient that she is going to need 30/11. Patient verbalized that she does not have that currently.
Patient stated that she is able to go to the bathroom and will not come to the ED again for this same reason. She appeared overwhelmed with the discussion of LTC, private caregivers and giving up her financial information. She would speak off topic
about other subjects.
CM sat with patient as she calleds Laly at [facility]. A was left with patient's contact info. Laly texted CM back sharing she was on a train and would be in touch with Luciana.
Luciana said she just felt scared last night and the first thing she thought to do was call EMS. She also kept repeating that she is only 68 years old and too young to go into a SNF.
Patient agreeable to W/C van.
Above shared with bedside RN and attending physician.
Original Note:
CM consult placed for safe discharge home. Chart revirewed. CM introduced self and role. Patient spoke with patient at bedside.
Patient was just discharged yesterday, after extensive conversations of concerns for a safe discharge and the recommendation of short term rehab. Patient shared that her 'friend', Zach was supposed to come over and he never did. She shared that
she called him and 'he never answered'. Patient asked patient about the possibily of a SNF. Luciana stated, 'No thank you.' Patient shared that she doesn't want to go to a SNF because she is scared and thought it was weird that they ([facility]) asked for her financial info. She said 'I'm from [place], [place] don't do that kind of thing'.
CM reassured Mariah that all SNFs would eventually ask for financial information, [facility] was not being 'weird' for asking for her financial information.Patient verbalized brittanie. CM asked Luciana to call Zach to make sure
he['d be home by the time Luciana got home, and that [facility] would also want to know if she has support in the home. Luciana stated, 'They already know who I am. They've already been out to to the house'.
--- NOTE | 2024-01-12 11:35 | VNURNOTE ---
Home Health Liaison met with patient to discuss [facility] nurse/therapy, visits, schedule and homebound status. Patient is agreeable and understands that visits at home will be 2-3 x per week to assess and teach medical management. She is known to [facility].
Discussed DC plans. Explained thoroughly that [facility] is short-term and visits last up to 1 hour. Confirmed with patient she has CG list. Urged patient to call some agencies on the list when she gets home. Reviewed with pt moving forward that she
needs a plan (i.e. to get CG services set up) when she needs assist again at home. 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 VN supervisor yard and Intake office aware. [facility] referral completed in Care Port.
[2024-01-12 11:42] VITALS: BP 137/108
== END 2024-01-12 13:20 | disposition other institution (70) ==
LOC: EMR 21:26
PROVIDERS: EMERGENCY PHYSICIAN Emergency Medicine; FAMILY PHYSICIAN Family Medicine
DX: R30.0 Dysuria (principal); I11.0 Hypertensive heart disease with heart failure; I50.9 Heart failure, unspecified; I48.91 Unspecified atrial fibrillation; K21.9 Gastro-esophageal reflux disease without esophagitis; E78.00 Pure hypercholesterolemia, unspecified; G47.33 Obstructive sleep apnea (adult) (pediatric); J45.909 Unspecified asthma, uncomplicated; Z85.828 Personal history of other malignant neoplasm of skin; Z86.73 Personal history of transient ischemic attack (TIA), and cerebral infarction without residual deficits; Z87.11 Personal history of peptic ulcer disease; Z87.891 Personal history of nicotine dependence; Z90.49 Acquired absence of other specified parts of digestive tract; Z95.0 Presence of cardiac pacemaker; Z98.84 Bariatric surgery status
CPT/HCPCS: 99283; 80053; 81003; 81015; 85025

== ENCOUNTER 2024-01-13 19:29 | Observation (INO) | payer MEDICARE, OTHER, SELFPAY ==
[2024-01-13 16:51] VITALS: BP 148/109
--- NOTE | 2024-01-13 16:52 | ED.GENMED ---
History of Present Illness
General
Chief Complaint: Failure to Thrive
Source: patient
Exam Limitations: none
Time Seen by Provider: 01/13/24 16:51
Nursing documentation reviewed up to this point in time: agreed with
History of Present Illness
History of Present Illness:
68 yr old female brought to the ER by EMS. Patient has a history of permanent A-fib on Eliquis heart failure chronic hypertension chronic hyponatremia chronic respiratory failure on 2 L, sleep apnea CVA breast cancer chronic ambulatory dysfunction
wheelchair-bound presents for evaluation. Patient has had multiple visits here in the ER. Patient was admitted in November and discharged to rehab however was discharged by the rehab because she was not participating in the rehab. Patient was then
again admitted the end of December and discharged January 10. Patient refused to give any financial information for long-term facility. Patient apparently lives alone however has ambulatory dysfunction and is not able to get of a wheelchair
to care for herself. She was found soiled again today.
In addition patient was seen here yesterday for complaints of dysuria and at that time was also found lying in urine and feces.
Patient is not able to care for herself at home.
Patient is aware of this. Patient reports she did have a little shortness of breath today. She reports Dr. Montes is her doctor and she' texted him.'
Patient has no complaints now. Patient presented to the ER swollen again feces and urine
Past History
Past History
ED Past Medical History: Arrthythmia (Atrial fib), Asthma, Cancer (breast, Skin), CHF, CVA (TIA), GERD, HTN, Hypercholesterolemia, Psychiatric (Anxiety, PTSD), Other (RAMY, PNA, Sleep apnea, Various Vein, Peptic ulcer) and Other (mvp)
ED Past Surgical History: Cardiac (pacemaker, Ablation), Cholecystectomy, , Tonsilectomy and Other ( Left breast lumpectomy with aixllary lymph nodes, Hernia, Gastric bypass)
Social History
Tobacco: Former smoker
Alcohol: None
Drug: None
Personal: Single ('pham')
Living: alone
Employment: Not employed
Review of Systems
Review of Systems
Allergies reviewed?: Yes
All Other Systems: ROS reviewed and negative except as documented in HPI and ROS
Constitutional: Reports no symptoms; Denies fever
Respiratory: Reports trouble breathing
Cardiac: Reports no symptoms
ABD/GI: Reports no symptoms
: Reports no symptoms
Musculoskeletal: Reports other (Patient has difficulty ambulating get out of her chair)
Skin: Reports no symptoms
Neurological: Reports no symptoms
Psychiatric: Reports no symptoms
Phy Exam
General Physical Exam
General Presentation: well appearing
General age: appears stated age
General Skin: warm and dry
General Habitus: elderly, failure to thrive ((Patient presented incontinent of urine and feces)) and obese
General Mental: alert
General Hydration: appears well hydrated
Cardiovascular Exam
Cardiovascular Exam: regular rate/rhythm and normal peripheral pulses
Pulmonary Exam
Pulmonary Exam: lungs clear and no respiratory distress
Neurological Exam
Neurological Exam: alert and oriented x3
Casper Coma Scale
Eye Opening: Spontaneous
Verbal Response: Oriented
Motor Response: Obeys Commands
GCS Total Score: 15
Musculoskeletal Exam
Musculoskeletal Exam: full ROM
Skin Exam
Skin Exam: normal color
Psychiatric Exam
Psychiatric Exam: normal mood/affect
Course
Orders/Labs/Results
Orders:
Orders
01/13/24 Dinner
Cholesterol Lowering
At Your Request: Limited Participation
Fluid Restriction: 1200 mL/day (40 oz)
Cholesterol Lowering: Sodium, 2 Gram
01/13/24 17:37
IV Insert/Care/Rem.- Treatment PRN
01/13/24 18:01
Complete Blood Count/With Diff Urgent
Comprehensive Metabolic Panel Urgent
01/13/24 18:47
Admit/Transfer Patient As Directed
Co-Sign Provider:
Level of Care: Observation services
Assign to:: Medical/Surgical
Physician / Group: ulysses diaz
Diagnosis: inability to care for self,chronic amb dysfunction
Reason for Hospitalization: inability to care for self,chronic amb dysfunction
Code Status As Directed
Resuscitation Status: Do not resuscitate
Reached after discussion with pt or family/Healthcare POA: Yes
DNR Bracelet Application ONCE
01/13/24 18:50
PRN Pain Medication Management As Directed
May give lesser potent ordered pain med per pt: Yes
preference::
Protocol:: Medication orders for pain may be administered in a
manner that supports deferring to patient preference
when the pt is:
- Requesting an ordered lesser potent pain medication.
Least to most potent pain medications are defined
as: acetaminophen < NSAID < tramadol < opioids
(morphine, oxycodone, hydromorphone).
- Requesting a lesser dose of the same medication IF
ORDERED.
- Requesting a less intrusive route of administration
if both routes are prescribed by the provider (PO <
IV).
01/13/24 20:11
Acetaminophen [Tylenol] 650 mg PO Q4HPRN PRN
Apixaban [Eliquis] 5 mg PO BID
Bisacodyl [Dulcolax] 10 mg RECTAL DAILYPRN PRN
Docusate Sodium [Colace] 100 mg PO BIDPRN PRN
Furosemide [Lasix] 80 mg PO BID AT 0800,1600
Magnesium Hydroxide [Milk of Magnesia] 30 ml PO [id number] PRN
Pantoprazole [Protonix] 40 mg PO BID
Sucralfate [Carafate] 1 gram PO BID
01/13/24 20:11
VTE Contraindication Routine
VTE Mechanical Device Contraindication: Medical Contraindication
Pharmocologic Contraindication: Medical Contraindication
Comment: pt on eliquis
Activity As Directed
Activity Level: With Assistance
Intake/ Output As Directed
Frequency: Per unit guidelines
Vital Signs As Directed
Frequency: Per unit guidelines
Weight As Directed
Frequency: Daily
Oxygen Therapy [O2 Therapy] [RESP] Routine
Nasal Cannula Liter Flow: 2 LPM
Titrate/Wean O2 to maintain O2 sat greater than (%): 92
Special Instructions: pt on chronic 02
Ot Eval And Treat Routine
Pt Eval And Treat Routine
Activity Level: With Assistance
01/13/24 20:30
Fluticasone/Salmeterol 115/21 [Advair Hfa 115/21 Mcg Inhaler] 2 puff INH R BID
01/13/24 21:00
Midodrine [ProAmatine] 10 mg PO BID AT 0800,1700
01/13/24 22:00
Artificial Tears (Pf) [Refresh Eye Drops (Pf)] 2 drops BOTH EYES TID
Cetirizine HCl [Zyrtec] 10 mg PO HS
Gabapentin [Neurontin] 300 mg PO HS
Guaifenesin [Mucinex] 600 mg PO HS
Montelukast Sodium [Singulair] 10 mg PO HS
Potassium Chloride [KCl] 40 meq PO TID
Rosuvastatin Calcium [Crestor] 20 mg PO HS
01/14/24 04:50
Complete Blood Count/With Diff IN AM
Comprehensive Metabolic Panel IN AM
01/14/24 08:00
Dapagliflozin [Farxiga] 10 mg PO DAILY
Multivitamin [Theragran] 1 tablet PO DAILY
Spironolactone [Aldactone] 25 mg PO DAILY
fluticasone propionate 1 spray NASAL DAILY
Abnormal Lab Results
01/13/24
18:01
RDW 17.3 H %
(11.5-14.5)
Absolute Lymphs (auto) 1.1 L 10^3/uL
(1.2-3.4)
Absolute Monos (auto) 0.7 H 10^3/uL
(0.1-0.6)
Lymphocytes % 13.2 L %
(20.5-51.1)
Sodium 132 L mmol/L
(135-145)
Chloride 94 L mmol/L
(98-107)
BUN 28 H mg/dl
(7-17)
Glucose 103 H mg/dl
(70-99)
Total Bilirubin 1.8 H mg/dl
(0.2-1.3)
Alkaline Phosphatase 133 H U/L
(38-126)
Albumin 3.2 L g/dl
(3.5-5.0)
01/13/24 18:01
01/13/24 18:01
Vital Signs
Initial and Last Documented VS:
Initial Vital Signs
Temp Pulse Resp BP Pulse Ox
97.4 F 77 17 148/109 98
01/13/24 16:51 01/13/24 16:51 01/13/24 16:51 01/13/24 16:51 01/13/24 16:51
Last Documented Vital Signs
Temp Pulse Resp BP Pulse Ox
97.8 F 75 18 99/65 96
01/14/24 07:40 01/14/24 07:54 01/14/24 07:52 01/14/24 07:54 01/14/24 07:52
MDM/Problems Addressed
Differential Diagnosis Includes:
Not limited to ambulate dysfunction failure to thrive
MDM/Problems Addressed:
As documented patient is a 68-year-old female who has been to the ER and admitted multiple times this recently also to rehab however discharged because she was not participating in rehab. She lives alone she has amatory function is not able to get
herself out of her wheelchair and is unable to care for herself. Multiple times now she has been found in urine and feces. She presents here again with same complaints. She is no physical complaints now. She reported earlier episode shortness of
breath this morning however has no complaints now.
I spoke with case management however patient will not be able to be placed this evening will require observation until case management able to work on placement tomorrow.
*Critical Care Note
Total Time (30-74mins, 75-104mins- exclusive of procedures): Not Applicable
ED Attending Note
-
Portions of this chart may have been created with voice recognition software.� Occasional wrong word or��sound alike� substitutions may have occurred due to the inherent limitations of voice recognition software.
Discharge Plan
Departure
Patient Disposition: Admit
Date of Disposition: 01/13/24
Time of Disposition: 18:12
Admit to: Med/Surg
Admit to doctor: hospitalist
Presentation/result/management discussed w/ accepting MD/DO: Hospitalist
Patient with high blood pressure during this ER visit?: Yes
Condition: Fair
Covid-19: Not Applicable
Discharge Problem:
Adult failure to thrive
Interventions
Interventions:
*Risk Screen - Suicide Last Done: 01/13/24 17:02
*General Assessment Last Done: 01/13/24 17:02
*Neglect/Abuse Screening Last Done: 01/13/24 17:02
ED- Fall Risk Assessment Last Done: 01/13/24 17:01
*ED COVID-19 Vaccine History Last Done: 01/13/24 20:24
*Nursing Disposition Last Done: 01/13/24 20:02
Discharge Date and Time
Discharge Date/Time: 01/13/24 20:02
--- NOTE | 2024-01-13 16:57 | EDRN ---
Pt has been to ER multiple times covered in her own feces in urine. States that she had visiting nurses at the house but didnt tell them that she was sitting in her own feces and urine. Pt states that her neighbor brings her food that she does not
get her own. Pt States she has a wheel chair that she usually can stand and pivot to but has not been able. [facility] but [facility] becuase she was refusing to participate in physical therapy. Pt states she thought she could go
home and 'figure it out' but she cant. RN encouraged patient to allow staff to place her in a retirement being that she is now back for the 3rd time being unable to care for herself.
[2024-01-13 18:11] LABS: % Basophils 1.5 % (0-2); % Eosinophils 1.9 % (0-6); % Immature Granulocytes 0.5 % (0-0.5); % Lymphocytes 13.2 % (20.5-51.1); % Neutrophils 73.9 % (42.2-75.2); Absolute Basophils 0.1 10^3/uL (0-0.2); Absolute Eosinophils 0.2 10^3/uL (0-0.7); Absolute Lymphocytes 1.1 10^3/uL (1.2-3.4); Absolute Monocytes 0.7 10^3/uL (0.1-0.6); Hematocrit 44.7 % (37.0-47.0); Hemoglobin 14.8 g/dL (12.0-16.0); Mean Corp Hgb Conc. 33.1 g/dL (33.0-37.0); Mean Corpuscular Hgb 30.5 pg (27.0-31.0); Mean Platelet Volume 9.8 fL (7.4-10.4); Nucleated Red Blood Cells % 0 %; Platelet Count 373 10^3/uL (130-400); Red Blood Cell Count 4.86 10^6/uL (4.20-5.40); Red Cell Dist. Width 17.3 % (11.5-14.5); White Blood Cell Count 8.1 10^3/uL (4.8-10.8)
--- NOTE | 2024-01-13 18:19 | HPS.HSE ---
Family Physician
-
Family Physician: INTERVIEWE UNKNOWN - PT NOT
Chief Complaint
-
Inability to care for self found in wheelchair's old urine and feces
History of Present Illness
68-year-old female from home where she has been for the past 2 days after discharge due to refusing SNF facility. She states she came to the ER last night because she currently has no electricity or running water at home due to not being able to
pay her bills or find her debit card. She is behind on all of her bills due to prolonged hospital stays. She reports today visiting nurse and the social services manager came out to visit her. She was found in her wheelchair unable to get out and was
soiled in urine and feces. She is chronic wheelchair bound and unable to care for herself at home. She is currently willing to look for some kind of rehab or permanent placement due to not being able to take care of herself and manage her bills at
home. She states she does have a daughter that lives in [place] that could possibly help her get some organization but she is unsure. She denies fever, chills, chest pain, palpitations, shortness breath, cough, abdominal pain, nausea, vomit,
diarrhea, urinary symptoms. She has no current breakdown in her genital/buttocks area. She took some of her a.m. medications when the visiting nurse came this a.m.
The patient had a recent admission 01/01 - 01/11/2024 secondary to inability to care for oneself, chronic ambulatory dysfunction wheelchair-bound mild acute on chronic heart failure. She was placed back on Lasix 80 mg twice daily. She lives alone and
refused to go to SNF facility. She had been at [facility] rehab before and did not participate in therapy and was discharged on 01/08/2024.
She has past medical history permanent A-fib on Eliquis, heart failure reduced EF, chronic hypotension, hyponatremia, chronic hypoxic respiratory failure on 2 L baseline, asthma, RAMY, CVA, breast cancer, chronic ambulatory dysfunction
wheelchair-bound, obesity, GERD, HLD, anxiety, inability to care for self, chronic constipation, chronic lower back pain, obesity
Medical History
Past Medical History
Past Medical History: Reports Other (permanent atrial fibrillation on Eliquis, HFrEF, chronic hypotension, hyponatremia, chronic hypoxic respiratory failure on 2 L baseline asthma, obstructive sleep apnea, history of CVA, breast cancer, chronic
ambulatory dysfunction wheelchair-bound, obesity, GERD, hypercholesterolemia, anxiety)
Past Surgical History: Reports Other (Cardiac (pacemaker, Ablation), Cholecystectomy, , Tonsilectomy and Other ( Left breast lumpectomy with aixllary lymph nodes, Hernia, Gastric bypass))
Social History
Tobacco: Former Smoker
Alcohol: None
Drug: None
Personal: Single
Living: Alone
Family History
Family History: Not pertinent
Allergies / Home Medications
Allergies reflects when Allergies were last updated in [employer].
Home Medications with original date entered in [employer]
Allergy/Medication List:
Allergies
Allergy/AdvReac Type Severity Reaction Status Date / Time
codeine Allergy 'loopy' Verified 12/31/23 15:18
Home Medications
montelukast 10 mg tablet 10 mg PO HS Lung/breathing issues 06/23/22
apixaban 5 mg tablet (Eliquis) 5 mg PO BID #60 tabs 07/01/22
rosuvastatin 20 mg tablet 20 mg PO HS High Cholesterol 02/17/23
fluticasone 250 mcg-salmeterol 50 mcg/dose blistr powdr for inhalation (Wixela Inhub) 2 inh inhalation R BID Lung/Breathing Issues 02/22/23
therapeutic multivitamin 1 tab PO DAILY Supplement ##0 04/16/23
midodrine 10 mg tablet 10 mg PO BID Blood Pressure 10/12/23
spironolactone 25 mg tablet (Aldactone) 25 mg PO DAILY Fluid Retention/Swelling 10/12/23
pantoprazole 40 mg tablet,delayed release 40 mg PO BID #60 tabs 10/21/23
acetaminophen 325 mg tablet 650 mg (2 x 325 mg) PO Q4HPRN PRN mild pain/BURROWS/temp>100.5 #0 tabs 11/22/23
dapagliflozin propanediol 10 mg tablet 10 mg PO DAILY #0 tabs 11/22/23
gabapentin 300 mg capsule 300 mg PO HS #0 caps 11/22/23
bisacodyl 10 mg rectal suppository (Dulcolax (bisacodyl)) 10 mg CO DAILYPRN PRN mom ineffective 12/31/23
cetirizine 10 mg capsule (Zyrtec) 10 mg PO HS Allergies 12/31/23
dextran 70-hypromellose eye drops in a dropperette (Artificial Tears (PF) drops in a dropperette) 2 drp BOTH EYES TID Eye Condition 12/31/23
docusate sodium 100 mg capsule 100 mg PO BIDPRN PRN constipation 12/31/23
fluticasone propionate 50 mcg/actuation nasal spray,suspension 1 spray intranasal DAILY Allergies 12/31/23
furosemide 80 mg tablet (Lasix) 80 mg PO BID Fluid retention/Swelling 12/31/23
guaifenesin 200 mg tablet 600 mg PO HS Cough 12/31/23
magnesium hydroxide 400 mg/5 mL oral suspension (Milk of Magnesia) 30 ml PO [id number] PRN no bm 3 days 12/31/23
potassium chloride 20 mEq tablet,extended release 40 meq PO TID Electrolyte Repletion 12/31/23
sodium phosphates 19 gram-7 gram/118 mL enema (Fleet Enema) 118 ml CO DAILYPRN PRN if dulcolax ineffective 12/31/23
sucralfate 1 gram tablet 1 g PO BID Gastrointestinal Issue 12/31/23
Review of Systems
-
History Source: Patient
A 12 point ROS was completed and negative except as noted: Yes
Constitutional: Denies Fever, Fatigue or Chills
EENT: Denies Sore Throat or Runny Nose
Respiratory: Denies Cough or Trouble Breathing
Cardiac: Denies Chest Pain, Diaphoresis, Palpitations or Syncope
Abdomen/GI: Denies Abdominal Pain, Nausea, Vomiting, Diarrhea, Constipated, Bloody Stools or Black Stools
: Reports Incontinence (Urine and stool); Denies Dysuria, Frequency or Flank Pain
Musculoskeletal: Denies Joint Pain or Edema
Skin: Denies Itching or Rash
Neurological: Reports Other (Chronic ambulatory dysfunction is wheelchair-bound); Denies Dizzy or Headache
Endocrine: Reports No Symptoms
Hematologic/Lymphatic: Reports No Symptoms
Psych: Reports Calm
Physical Exam
Vital Signs
Vital Signs
Temp Pulse Resp BP Pulse Ox
97.4 F 71 19 148/109 98
01/13/24 16:51 01/13/24 18:06 01/13/24 18:00 01/13/24 16:51 01/13/24 16:51
Physical Exam
General: Comfortable and Conversant; No Pain, Fever or Chills
HEENT: NormoCephalic, Anicteric, PERRLA, [place]win Conjunctivae and No Ptosis
Respiratory: Clear; No Wheezes, Rales or Rhonchi
Cardiac: S1/S2, Regular Rhythm and Murmur (2/6 systolic); No Rub, Gallop or Peripheral Edema
Breast: Deferred by me
GI: Soft, Non Tender, Non Distended, Normal Bowel Sounds and No Hepatosplenomegaly
Rectal: Deferred by Provider
Genito-urinary: Deferred by me
Musculoskeletal: No Clubbing, No Cyanosis and No Edema
Skin: Warm and Dry; No Rash, Jaundice or Ulcers
Neuro: AO x 3, No Motor Deficits (While in bed is able to turn self and move all extremities), Nonfocal/grossly intact, Cranial Nerves Intact and No Sensory Deficits; No Slurred Speech, Facial Droop or Tremors
Psych: Calm
Laboratory Results
-
01/13/24 18:01
Data Reviewed
-
Lab Data: Labs Reviewed by me
Impression/Plan
-
Impression/plan:
Observation MedSurg
#Inability to care for oneself
#Chronic ambulatory dysfunction, wheelchair-bound
Patient cannot get herself to the bathroom and has been soiling herself at home in wheelchair feces and urine
She has denied nursing facility placement on recent discharge 01/11/2024. She was discharged from [facility] due to nonparticipation on 01/07
-She is currently willing to be placed in a group home facility although she said she cannot find any of her financial information at home, she reports her electric and water was shut off due to not being able to pay the bills from prolonged
hospital admissions and she is unsure how to resume getting these at her house
She is competent to make her own medical decisions
-PT/OT consult
-Consult case management for NH placement
# Chronic HFrEF exacerbation/deconditioning from multiple recent hospitalizations
Recent Echo from 10/2023: Mildly reduced left ventricular systolic function. EF 45%. Moderate mitral stenosis.
I/O, daily weights weight 100.5 kg<100.8 kg on 01/11/2024
-Continue Lasix 80 mg p.o. twice daily (hold for SBP < 110)
-Continue dapagliflozin, spironolactone
# Hypokalemia secondary to Lasix
Continue potassium supplements 40 mEq 3 times daily
# Permanent atrial fibrillation
-Continue Eliquis
No rate control meds, current heart rate 71 bpm
# Chronic constipation
-Continue laxatives
Bowel movement today at home in her wheelchair
# Chronic hypotension
-Continue midodrine
# Chronic hyponatremia
Mild, monitor
# Allergic asthma
-Continue inhalers
-Continue montelukast
# Obstructive sleep apnea
# Chronic hypoxic respiratory failure on 2 L baseline
# History of esophagitis
# GERD
-Continue Protonix
-Continue sucralfate
# History of CVA
-Continue statin
# Hypercholesterolemia
Continue statin
# Anxiety-no reported meds
# History of breast cancer
# Obesity secondary to excess calories
-Weight loss recommended
# Chronic lower back pain
-Continue gabapentin
DVT prophylaxis�Eliquis
DNR
[2024-01-13 18:26] LABS: ALT (SGPT) 18 U/L (0-35); AST (SGOT) 34 U/L (14-36); Albumin 3.2 g/dl (3.5-5.0); Alkaline Phosphatase 133 U/L (38-126); Blood Urea Nitrogen 28 mg/dl (7-17); Calcium 9.7 mg/dl (8.4-10.2); Carbon Dioxide 22 mmol/L (22-30); Chloride 94 mmol/L (98-107); Glucose 103 mg/dl (70-99); Potassium 4.4 mmol/L (3.5-5.1); Sodium 132 mmol/L (135-145); Total Bilirubin 1.8 mg/dl (0.2-1.3); Total Protein 7.3 g/dl (6.3-8.2); eGFR > 60.00
--- NOTE | 2024-01-13 18:30 | PHANOTE ---
med rec tech(01/13/24)-Patient unable to confirm her medications with me, given recent admission and patient's statement that nothing has changed, left home medication list the same. Was able to confirm most of the list with eCW visit on 12/16/23.
--- NOTE | 2024-01-13 19:00 | W.PN.UPDATE ---
Update Note
Progress Note Update
This is an addendum to the H&P written by Zakia Bridges on 01/13/2024. Patient seen and examined independently with LOCKER ATTENDANT.
68-year-old female history of permanent atrial fibrillation on Eliquis, HFrEF, chronic hypotension, hyponatremia, chronic hypoxemic respiratory failure on 2 L baseline, asthma, obstructive sleep apnea, CVA, wheelchair-bound, here for inability to
care for herself and soiled in her urine/feces, without electricity or running water at home due to inability to pay her bills.
Lab work unremarkable. Case management consulted for placement.
[2024-01-13 20:13] VITALS: BP 116/82; BMI 34.8
[2024-01-13 20:38] VITALS: BMI 34.8
--- NOTE | 2024-01-13 20:39 | PTCARENOTE ---
Patient received pt from ED and successfully transferred from stretcher to bed with maximum assistance. Vital signs are stable. All orders reviewed and acknowledged. The care plan was discussed with patient, addressing all questions. The bed is
positioned low, and the call simon is within reach.
[2024-01-13] MEDS: LASIX 80 MG PO (20:54)
[2024-01-13] MEDS: MUCINEX 600 MG PO (20:54)
[2024-01-13] MEDS: ProAmatine 10 MG PO (20:54)
[2024-01-13] MEDS: REFRESH EYE DROPS (PF) 2 DROPS BOTH EYES (20:54)
[2024-01-13] MEDS: NEURONTIN 300 MG PO (20:55)
[2024-01-13] MEDS: ZYRTEC 10 MG PO (20:55)
[2024-01-13] MEDS: CARAFATE 1 GRAM PO (20:56)
[2024-01-13] MEDS: ELIQUIS 5 MG PO (20:56)
[2024-01-13] MEDS: CRESTOR 20 MG PO (20:56)
[2024-01-13] MEDS: SINGULAIR 10 MG PO (20:56)
[2024-01-13] MEDS: PROTONIX 40 MG PO (20:56)
[2024-01-13] MEDS: KCL 40 MEQ PO (20:56)
[2024-01-13] MEDS: REGLAN 10 MG IV (22:22)
[2024-01-13 23:53] VITALS: BP 102/68
[2024-01-14 05:13] LABS: % Basophils 1.6 % (0-2); % Eosinophils 3.5 % (0-6); % Immature Granulocytes 0.5 % (0-0.5); % Lymphocytes 16.3 % (20.5-51.1); % Monocytes 9.4 % (1.7-9.3); % Neutrophils 68.7 % (42.2-75.2); Absolute Basophils 0.1 10^3/uL (0-0.2); Absolute Eosinophils 0.3 10^3/uL (0-0.7); Absolute Lymphocytes 1.2 10^3/uL (1.2-3.4); Absolute Monocytes 0.7 10^3/uL (0.1-0.6); Absolute Neutrophils 5.1 10^3/uL (1.4-6.5); Hematocrit 40.5 % (37.0-47.0); Hemoglobin 13.5 g/dL (12.0-16.0); Mean Corp Hgb Conc. 33.3 g/dL (33.0-37.0); Mean Corpuscular Hgb 29.8 pg (27.0-31.0); Mean Corpuscular Volume 89.4 fL (81.0-99.0); Mean Platelet Volume 9.5 fL (7.4-10.4); Nucleated Red Blood Cells % 0 %; Platelet Count 364 10^3/uL (130-400); Red Blood Cell Count 4.53 10^6/uL (4.20-5.40); Red Cell Dist. Width 17.2 % (11.5-14.5); White Blood Cell Count 7.4 10^3/uL (4.8-10.8)
[2024-01-14 05:38] LABS: ALT (SGPT) 15 U/L (0-35); AST (SGOT) 34 U/L (14-36); Alkaline Phosphatase 116 U/L (38-126); Blood Urea Nitrogen 29 mg/dl (7-17); Calcium 9.3 mg/dl (8.4-10.2); Carbon Dioxide 22 mmol/L (22-30); Chloride 96 mmol/L (98-107); Estimated Creatinine Clearance 82 ml/min; Glucose 97 mg/dl (70-99); Sodium 132 mmol/L (135-145); Total Bilirubin 1.4 mg/dl (0.2-1.3); Total Protein 6.9 g/dl (6.3-8.2); eGFR > 60.00
[2024-01-14 06:00] VITALS: BMI 33.8
[2024-01-14 07:40] VITALS: BP 99/65
[2024-01-14] MEDS: ADVAIR HFA 115/21 MCG INHALER 2 PUFF INH ×2 (07:41→19:54)
[2024-01-14] MEDS: FARXIGA 10 MG PO (07:53)
[2024-01-14] MEDS: PROTONIX 40 MG PO ×2 (07:54→20:38)
[2024-01-14] MEDS: ELIQUIS 5 MG PO ×2 (07:54→20:38)
[2024-01-14] MEDS: ProAmatine 10 MG PO ×2 (07:54→16:28)
[2024-01-14] MEDS: ALDACTONE 25 MG PO (07:54)
[2024-01-14] MEDS: KCL 40 MEQ PO ×3 (07:54→21:25)
[2024-01-14] MEDS: LASIX 80 MG PO ×2 (07:54→16:29)
[2024-01-14] MEDS: FLUSH (NSS) 1 FLUSH IV (07:55)
[2024-01-14] MEDS: CARAFATE 1 GRAM PO ×2 (07:55→20:38)
[2024-01-14] MEDS: THERAGRAN 1 TABLET PO (07:55)
[2024-01-14] MEDS: REFRESH EYE DROPS (PF) 2 DROPS BOTH EYES ×3 (07:55→21:26)
--- NOTE | 2024-01-14 10:16 | VNURNOTE ---
Chart reviewed. Multiple 911 calls made by patient at home and trips to ER c/o incontinence of stool and urine at home in patient's recliner. [facility] nurse and SURVEYOR INSTRUMENT ASSISTANT met with patient at home on 01/12. Patient does not have care in home, unable to care
for self. Multiple conversations with her about arranging caregivers, patient was given Caregiver list during prior ER visits. On 01/12, [facility] attempted to perform assessment. Patient refused portions of assessment to ascertain if she can care for
self. Report made to MD SANGITA, and 2 contacts listed in chart. Not admitted to [facility], care exceeds intermittent care that can provided under [facility] benefit.
[2024-01-14 11:15] VITALS: BMI 33.8
--- NOTE | 2024-01-14 11:49 | CM ---
Addendum entered by Allyson Chew 01/14/24 15:41:
called Chrystal Bruno, [facility] acetylene operator, to follow up regarding her meeting with her warehouse and receiving supervisor. Await response.
Original Note:
CM contacted Chrystal GarzaDamion, [facility] Icer Machine, to discuss intermediate accountant care planning. Per [facility], Luciana has previously had an assessment for intermediate accountant care placement, however she never provided any financial information, therefore
she was ineligible for placement due to lack of willingness to provide the necessary information.
[facility] made a home visit on 01/13/2024; despite Luciana stating that she has friends that can help her and agreed to call caregivers to arrange assistance in the home, she has not followed up with any of these things. [facility] will no longer be able to
provide service, as care exceeds intermittent care that can provided under [facility] benefit. [facility] contacted MD SANGITA, and 2 contacts listed in chart (Elan who is listed as 'family/other' and Luciana Eden's daughter.
[facility] Icer Machine will be meeting with her Newspaper Stuffer this afternoon to discuss the situation; possible consideration for a court order to be discussed.
CM met with Luciana; she is overwhelmed with all the paperwork she has at home and admits to being a disorganized person. She is not able to provide information about her finances or bank accounts, and she states that her daughter is not able to
help her. She has a stack of mail at home since she has been in and out of the hospital.
Await update from [facility] CM following discussion with [facility] Newspaper Stuffer. CM will continue to follow.
--- NOTE | 2024-01-14 12:51 | W.PN.HOSP.TC ---
Today's Communication/Plan
-
Volume status compensated.
Continue physical therapy assessment
Ongoing efforts for placement to fci facility versus long-term.
Medically stable for placement.
Assessment / Plan
Assessment / Plan
#Inability to care for oneself
#Chronic ambulatory dysfunction, wheelchair-bound
Patient cannot get herself to the bathroom and has been soiling herself at home in wheelchair feces and urine
She has denied nursing facility placement on recent discharge 01/11/2024. She was discharged from [facility] due to nonparticipation on 01/07
-She is currently willing to be placed in a snf facility although she said she cannot find any of her financial information at home, she reports her electric and water was shut off due to not being able to pay the bills from prolonged
hospital admissions and she is unsure how to resume getting these at her house
She is competent to make her own medical decisions
-PT/OT consult
-Consult case management for NH placement
# Chronic HFrEF exacerbation/deconditioning from multiple recent hospitalizations
Recent Echo from 10/2023: Mildly reduced left ventricular systolic function. EF 45%. Moderate mitral stenosis.
I/O, daily weights weight 100.5 kg<100.8 kg on 01/11/2024
-Continue Lasix 80 mg p.o. twice daily (hold for SBP < 110)
-Continue dapagliflozin, spironolactone
# Hypokalemia secondary to Lasix
Continue potassium supplements 40 mEq 3 times daily
# Permanent atrial fibrillation
-Continue Eliquis
No rate control meds, current heart rate 71 bpm
# Chronic constipation
-Continue laxatives
Bowel movement today at home in her wheelchair
# Chronic hypotension
-Continue midodrine
# Chronic hyponatremia
Mild, monitor
# Allergic asthma
-Continue inhalers
-Continue montelukast
# Obstructive sleep apnea
# Chronic hypoxic respiratory failure on 2 L baseline
# History of esophagitis
# GERD
-Continue Protonix
-Continue sucralfate
# History of CVA
-Continue statin
# Hypercholesterolemia
Continue statin
# Anxiety-no reported meds
# History of breast cancer
# Obesity secondary to excess calories
-Weight loss recommended
# Chronic lower back pain
-Continue gabapentin
DVT prophylaxis�Eliquis
DNR
Anticipated Discharge: 24 - 48 hours
Subjective/Interval History
-
Date of Service: January 14, 2024
Objective Data
-
Labs:
Laboratory Results
01/14/24
04:50
WBC 7.4
Hgb 13.5
Hct 40.5
Plt Count 364
Sodium 132 L
Potassium 4.0
Chloride 96 L
Carbon Dioxide 22
BUN 29 H
Creatinine 0.8
Glucose 97
Calcium 9.3
Total Bilirubin 1.4 H
AST 34
ALT 15
Alkaline Phosphatase 116
Vital Signs:
Vital Signs
Temp Pulse Resp BP Pulse Ox
97.8 F 75 18 99/65 96
01/14/24 07:40 01/14/24 07:54 01/14/24 07:52 01/14/24 07:54 01/14/24 07:52
I&O
01/13/24 01/14/24 01/15/24
06:59 06:59 06:59
Intake Total 480 / 480
Balance 480 / 480
Physical Exam
-
General: Well Developed and No Apparent Distress
HEENT: Normocephalic, Atraumatic and Moist Mucous Membranes
Respiratory: Clear to Auscultation
Cardiac: Regular Rhythm and S1/S2; Negative Murmur, Rub or Gallop
GI: Soft, Nontender, Nondistended and Normal Bowel Sounds; Negative Organomegaly
Rectal: Deferred by Provider
Musculoskeletal: No Clubbing, No Cyanosis and No Edema
Skin: Negative Rash
Neuro: Nonfocal/Grossly Intact
[2024-01-14 15:28] VITALS: BP 100/68
--- NOTE | 2024-01-14 16:19 | PTCARENOTE ---
Pt AAO x3,ZAMAN; OOB to chair for approx 2 hours with assist x2; ayah wel, repeatedly requests to get back in bed. Able to position renuka fin bed. VSS. On nc 2 lpm- pulse ox 99 %; (+) slight PIERCE; dante SOB. Abd obese,soft, ayah PO well. Incont large
amts urine. Resting in bed at present, no c/o. Will continue to monitor.
[2024-01-14] MEDS: ADVAIR HFA 115/21 MCG INHALER INH (19:56)
[2024-01-14] MEDS: ZYRTEC 10 MG PO (21:25)
[2024-01-14] MEDS: MUCINEX 600 MG PO (21:26)
[2024-01-14] MEDS: SINGULAIR 10 MG PO (21:26)
[2024-01-14] MEDS: CRESTOR 20 MG PO (21:26)
[2024-01-14] MEDS: NEURONTIN 300 MG PO (21:26)
[2024-01-14 23:00] VITALS: BP 96/63
[2024-01-15 03:27] VITALS: BMI 34.3
[2024-01-15 06:00] VITALS: BMI 34.3
[2024-01-15 08:12] VITALS: BP 115/85
[2024-01-15] MEDS: ADVAIR HFA 115/21 MCG INHALER 2 PUFF INH ×2 (08:27→19:18)
[2024-01-15] MEDS: LASIX 80 MG PO ×2 (08:34→16:01)
[2024-01-15] MEDS: PROTONIX 40 MG PO ×2 (08:34→21:13)
[2024-01-15] MEDS: ProAmatine 10 MG PO ×2 (08:34→16:03)
[2024-01-15] MEDS: FARXIGA 10 MG PO (08:34)
[2024-01-15] MEDS: CARAFATE 1 GRAM PO ×2 (08:35→21:12)
[2024-01-15] MEDS: THERAGRAN 1 TABLET PO (08:35)
[2024-01-15] MEDS: REFRESH EYE DROPS (PF) 2 DROPS BOTH EYES ×3 (08:35→21:13)
[2024-01-15] MEDS: ALDACTONE 25 MG PO (08:35)
[2024-01-15] MEDS: ELIQUIS 5 MG PO ×2 (08:35→21:13)
[2024-01-15] MEDS: KCL 40 MEQ PO ×3 (08:35→21:13)
--- NOTE | 2024-01-15 08:46 | W.PN.HOSP.TC ---
Today's Communication/Plan
-
dispo planning
Assessment / Plan
Assessment / Plan
# Inability to care for oneself
# Chronic ambulatory dysfunction, wheelchair-bound
Patient cannot get herself to the bathroom and has been soiling herself at home in wheelchair feces and urine
She has denied nursing facility placement on recent discharge 01/11/2024. She was discharged from [facility] due to nonparticipation on 01/07
She is currently willing to be placed in a detention facility although she said she cannot find any of her financial information at home, she reports her electric and water was shut off due to not being able to pay the bills from prolonged
hospital admissions and she is unsure how to resume getting these at her house
She is competent to make her own medical decisions
PT/OT recc SNF
Consult case management for NH placement
# Chronic HFrEF exacerbation/deconditioning from multiple recent hospitalizations
Recent Echo from 10/2023: Mildly reduced left ventricular systolic function. EF 45%. Moderate mitral stenosis.
I/O, daily weights weight 100.5 kg<100.8 kg on 01/11/2024
Continue Lasix 80 mg p.o. twice daily (hold for SBP < 110)
Continue dapagliflozin, spironolactone
# Hypokalemia secondary to Lasix
Continue potassium supplements 40 mEq 3 times daily
# Permanent atrial fibrillation
Continue Eliquis
No rate control meds, current heart rate 71 bpm
# Chronic constipation
Continue laxatives
# Chronic hypotension
Continue midodrine
# Chronic hyponatremia
Mild, monitor
# Allergic asthma
Continue inhalers
Continue montelukast
# Obstructive sleep apnea
# Chronic hypoxic respiratory failure on 2 L baseline
# History of esophagitis
# GERD
Continue Protonix
Continue sucralfate
# History of CVA
Continue statin
# Hypercholesterolemia
Continue statin
# Anxiety-no reported meds
# History of breast cancer
# Obesity secondary to excess calories
Weight loss recommended
# Chronic lower back pain
Continue gabapentin
DVT prophylaxis�Eliquis
DNR
Anticipated Discharge: > 48 hours
Subjective/Interval History
-
Date of Service: January 15, 2024
Objective Data
-
Vital Signs:
Vital Signs
Temp Pulse Resp BP Pulse Ox
36.6 C 104 16 115/85 99
01/15/24 08:12 01/15/24 08:34 01/15/24 08:30 01/15/24 08:34 01/15/24 08:30
I&O
01/14/24 01/15/24 01/16/24
06:59 06:59 06:59
Intake Total 480 / 480 2280 / 2280
Balance 480 / 480 2280 / 2280
Review of Systems
-
All other systems: Reviewed and negative
Physical Exam
-
General: Well Developed, No Apparent Distress, Comfortable and Respiratory Distress (chronic)
HEENT: Normocephalic, Atraumatic, Moist Mucous Membranes and Oxygen (2L NC)
Respiratory: Clear to Auscultation and Non Labored Respirations; Negative Accessory Resp Muscle Use
Cardiac: Regular Rhythm and S1/S2; Negative Murmur, Rub or Gallop
GI: Soft, Nontender, Nondistended and Normal Bowel Sounds; Negative Organomegaly
Rectal: Deferred by Provider
Musculoskeletal: No Clubbing, No Cyanosis and No Edema
Skin: Negative Rash
Neuro: Awake and Alert
Psych: Calm and Intact Judgement/Insight
[2024-01-15 15:00] VITALS: BP 102/62
--- NOTE | 2024-01-15 15:04 | CHAP ---
Ms. Hunt was pleasant - she is accepting of her situation and uncomplaining. She declined prayer at this time. Emotional support provided.
[2024-01-15] MEDS: NEURONTIN 300 MG PO (21:13)
[2024-01-15] MEDS: CRESTOR 20 MG PO (21:13)
[2024-01-15] MEDS: MUCINEX 600 MG PO (21:13)
[2024-01-15] MEDS: SINGULAIR 10 MG PO (21:14)
[2024-01-15] MEDS: ZYRTEC 10 MG PO (21:14)
[2024-01-15 23:42] VITALS: BP 100/69
[2024-01-16 06:00] VITALS: BMI 34.6
[2024-01-16] MEDS: ADVAIR HFA 115/21 MCG INHALER 2 PUFF INH (07:23)
[2024-01-16 07:55] VITALS: BP 103/64
[2024-01-16] MEDS: ProAmatine 10 MG PO ×2 (08:24→16:00)
[2024-01-16] MEDS: LASIX 80 MG PO ×2 (08:24→16:00)
[2024-01-16] MEDS: PROTONIX 40 MG PO ×2 (08:24→20:40)
[2024-01-16] MEDS: FARXIGA 10 MG PO (08:24)
[2024-01-16] MEDS: KCL 40 MEQ PO ×3 (08:25→22:18)
[2024-01-16] MEDS: ALDACTONE 25 MG PO (08:25)
[2024-01-16] MEDS: ELIQUIS 5 MG PO ×2 (08:25→20:40)
[2024-01-16] MEDS: THERAGRAN 1 TABLET PO (08:25)
[2024-01-16] MEDS: CARAFATE 1 GRAM PO ×2 (08:26→20:40)
[2024-01-16] MEDS: REFRESH EYE DROPS (PF) 2 DROPS BOTH EYES ×3 (08:26→22:18)
[2024-01-16] MEDS: COLACE 100 MG PO ×2 (08:34→22:20)
--- NOTE | 2024-01-16 08:41 | W.PN.HOSP.TC ---
Today's Communication/Plan
-
dispo planning
Assessment / Plan
Assessment / Plan
# Inability to care for oneself
# Chronic ambulatory dysfunction, wheelchair-bound
Patient cannot get herself to the bathroom and has been soiling herself at home in wheelchair feces and urine
She has denied nursing facility placement on recent discharge 01/11/2024. She was discharged from [facility] due to nonparticipation on 01/07
She is currently willing to be placed in a fpc facility although she said she cannot find any of her financial information at home, she reports her electric and water was shut off due to not being able to pay the bills from prolonged
hospital admissions and she is unsure how to resume getting these at her house
She is competent to make her own medical decisions
PT/OT recc SNF
Consulted case management for NH placement
# Chronic HFrEF exacerbation/deconditioning from multiple recent hospitalizations
Recent Echo from 10/2023: Mildly reduced left ventricular systolic function. EF 45%. Moderate mitral stenosis.
I/O, daily weights weight 100.5 kg<100.8 kg on 01/11/2024
Continue Lasix 80 mg p.o. twice daily (hold for SBP < 110)
Continue dapagliflozin, spironolactone
# Hypokalemia secondary to Lasix
Continue potassium supplements 40 mEq 3 times daily
# Permanent atrial fibrillation
Continue Eliquis
No rate control meds, current heart rate 71 bpm
# Chronic constipation
Continue laxatives
# Chronic hypotension
Continue midodrine
# Chronic hyponatremia
Mild, monitor
# Allergic asthma
Continue inhalers
Continue montelukast
# Obstructive sleep apnea
# Chronic hypoxic respiratory failure on 2 L baseline
# History of esophagitis
# GERD
Continue Protonix
Continue sucralfate
# History of CVA
Continue statin
# Hypercholesterolemia
Continue statin
# Anxiety-no reported meds
# History of breast cancer
# Obesity secondary to excess calories
Weight loss recommended
# Chronic lower back pain
Continue gabapentin
DVT prophylaxis�Eliquis
DNR
Anticipated Discharge: > 48 hours
Subjective/Interval History
-
Date of Service: January 16, 2024
Objective Data
-
Vital Signs:
Vital Signs
Temp Pulse Resp BP Pulse Ox
36.6 C 70 16 103/64 95
01/16/24 07:55 01/16/24 08:25 01/16/24 07:55 01/16/24 08:25 01/16/24 07:55
I&O
01/15/24 01/16/24 01/17/24
06:59 06:59 06:59
Intake Total 2280 / 2280 1020 / 1020
Balance 2280 / 2280 1020 / 1020
Review of Systems
-
All other systems: Reviewed and negative
Physical Exam
-
General: Well Developed, No Apparent Distress, Comfortable and Respiratory Distress (chronic)
HEENT: Normocephalic, Atraumatic, Moist Mucous Membranes and Oxygen (2L NC)
Respiratory: Clear to Auscultation and Non Labored Respirations; Negative Accessory Resp Muscle Use
Cardiac: Regular Rhythm and S1/S2; Negative Murmur, Rub or Gallop
GI: Soft, Nontender, Nondistended and Normal Bowel Sounds; Negative Organomegaly
Rectal: Deferred by Provider
Musculoskeletal: No Clubbing, No Cyanosis and No Edema
Skin: Negative Rash
Neuro: Awake and Alert
Psych: Calm and Intact Judgement/Insight
Data Reviewed
-
Diagnostic Radiology: Image personally visualized and interpreted and Report Reviewed by me
Labs: Labs Reviewed by me
--- NOTE | 2024-01-16 11:06 | CM ---
Patient seen in room/bed. Patient stated she was enjoying breakfast and has no concerns at this time. No documentation of response from [facility] at this time. CM will continue to follow for discharge planning needs.
Plan; SNF pending [facility] recommendations. PT/OT recommending SNF
[2024-01-16 15:00] VITALS: BP 102/62
[2024-01-16] MEDS: ADVAIR HFA 115/21 MCG INHALER INH (21:31)
[2024-01-16] MEDS: SINGULAIR 10 MG PO (22:18)
[2024-01-16] MEDS: CRESTOR 20 MG PO (22:18)
[2024-01-16] MEDS: ZYRTEC 10 MG PO (22:18)
[2024-01-16] MEDS: NEURONTIN 300 MG PO (22:18)
[2024-01-16] MEDS: MUCINEX 600 MG PO (22:18)
[2024-01-16 23:13] VITALS: BP 100/70
[2024-01-17 05:56] VITALS: BMI 34.5
[2024-01-17 07:30] VITALS: BP 103/66
[2024-01-17] MEDS: LASIX 80 MG PO ×2 (08:13→16:32)
[2024-01-17] MEDS: ProAmatine 10 MG PO ×2 (08:14→16:32)
[2024-01-17] MEDS: REFRESH EYE DROPS (PF) 2 DROPS BOTH EYES ×3 (08:14→21:00)
[2024-01-17] MEDS: KCL 40 MEQ PO ×3 (08:14→21:06)
[2024-01-17] MEDS: ELIQUIS 5 MG PO ×2 (08:14→21:02)
[2024-01-17] MEDS: ALDACTONE 25 MG PO (08:14)
[2024-01-17] MEDS: CARAFATE 1 GRAM PO ×2 (08:14→21:05)
[2024-01-17] MEDS: PROTONIX 40 MG PO ×2 (08:14→21:04)
[2024-01-17] MEDS: FARXIGA 10 MG PO (08:14)
[2024-01-17] MEDS: ADVAIR HFA 115/21 MCG INHALER 2 PUFF INH (08:14)
[2024-01-17] MEDS: THERAGRAN 1 TABLET PO (08:14)
--- NOTE | 2024-01-17 09:05 | CM ---
Addendum entered by Allyson Chew 01/17/24 12:27:
FLASH attempted to speak with Luciana, however she was sleeping soundly. Will go back again later today.
Addendum entered by Allyson Chew 01/17/24 12:16:
FLASH called Chrystal Bruno to determine when she would be coming to see Luciana; Chrystal will not be able to visit today and plans to come tomorrow. I asked that she let me know when she will be arriving so I can be involved in the conversation
with Luciana.
CM to continue to follow.
Original Note:
Chrystal Bruno, [facility] Recreational Aide, will be coming to see Luciana today to discuss application for [facility].
FLASH will follow to continue conversations with Luciana regarding halfway placement.
[2024-01-17 10:50] VITALS: BP 112/74; PULSE 71; O2SAT 96
--- NOTE | 2024-01-17 14:20 | CM ---
FLASH met with Luciana; Shira Costa, Director of ; and Alicia from [facility] to discuss SNF admission. Luciana was agreeable to speaking with the [facility] Business office regarding her financial information to determine if she
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
[facility] Business office will contact Luciana to obtain authorization to look at her banking records in order to determine her eligibility. If she meets the requirements, plan is for admission to [facility] for additional rehabilitation to get her to the
point where she can return safely to her home.
FLASH will continue to follow for transfer to [facility] pending financial assessment.
[2024-01-17 15:15] VITALS: BP 101/65
--- NOTE | 2024-01-17 15:18 | W.PN.HOSP.TC ---
Today's Communication/Plan
-
Ongoing disposition efforts/placement to retirement facility
Medically stable
Assessment / Plan
Assessment / Plan
# Inability to care for oneself
# Chronic ambulatory dysfunction, wheelchair-bound
Patient cannot get herself to the bathroom and has been soiling herself at home in wheelchair feces and urine
She has denied nursing facility placement on recent discharge 01/11/2024. She was discharged from [facility] due to nonparticipation on 01/07
She is currently willing to be placed in a custodial facility although she said she cannot find any of her financial information at home, she reports her electric and water was shut off due to not being able to pay the bills from prolonged
hospital admissions and she is unsure how to resume getting these at her house
She is competent to make her own medical decisions
PT/OT recc SNF
Consulted case management for NH placement
# Chronic HFrEF exacerbation/deconditioning from multiple recent hospitalizations
Recent Echo from 10/2023: Mildly reduced left ventricular systolic function. EF 45%. Moderate mitral stenosis.
I/O, daily weights weight 100.5 kg<100.8 kg on 01/11/2024
Continue Lasix 80 mg p.o. twice daily (hold for SBP < 110)
Continue dapagliflozin, spironolactone
# Hypokalemia secondary to Lasix
Continue potassium supplements 40 mEq 3 times daily
# Permanent atrial fibrillation
Continue Eliquis
No rate control meds, current heart rate 71 bpm
# Chronic constipation
Continue laxatives
# Chronic hypotension
Continue midodrine
# Chronic hyponatremia
Mild, monitor
# Allergic asthma
Continue inhalers
Continue montelukast
# Obstructive sleep apnea
# Chronic hypoxic respiratory failure on 2 L baseline
# History of esophagitis
# GERD
Continue Protonix
Continue sucralfate
# History of CVA
Continue statin
# Hypercholesterolemia
Continue statin
# Anxiety-no reported meds
# History of breast cancer
# Obesity secondary to excess calories
Weight loss recommended
# Chronic lower back pain
Continue gabapentin
DVT prophylaxis�Eliquis
DNR
Anticipated Discharge: 24 - 48 hours
Subjective/Interval History
-
Date of Service: January 17, 2024
Objective Data
-
Vital Signs:
Vital Signs
Temp Pulse Resp BP Pulse Ox
98.2 F 70 16 103/66 98
01/17/24 07:30 01/17/24 08:20 01/17/24 08:20 01/17/24 08:14 01/17/24 09:42
I&O
01/16/24 01/17/24 01/18/24
06:59 06:59 06:59
Intake Total 1020 / 1020 2160 / 2160
Balance 1020 / 1020 2160 / 2160
Physical Exam
-
General: Well Developed, No Apparent Distress, Comfortable and Respiratory Distress (chronic)
HEENT: Normocephalic, Atraumatic, Moist Mucous Membranes and Oxygen (2L NC)
Respiratory: Clear to Auscultation and Non Labored Respirations; Negative Accessory Resp Muscle Use
Cardiac: Regular Rhythm and S1/S2; Negative Murmur, Rub or Gallop
GI: Soft, Nontender, Nondistended and Normal Bowel Sounds; Negative Organomegaly
Rectal: Deferred by Provider
Musculoskeletal: No Clubbing, No Cyanosis and No Edema
Skin: Negative Rash
Neuro: Awake and Alert
Psych: Calm and Intact Judgement/Insight
[2024-01-17] MEDS: MILK OF MAGNESIA 30 ML PO (18:10)
[2024-01-17] MEDS: ADVAIR HFA 115/21 MCG INHALER INH (19:21)
[2024-01-17] MEDS: ZYRTEC 10 MG PO (21:00)
[2024-01-17] MEDS: SINGULAIR 10 MG PO (21:00)
[2024-01-17] MEDS: CRESTOR 20 MG PO (21:01)
[2024-01-17] MEDS: NEURONTIN 300 MG PO (21:01)
[2024-01-17] MEDS: MUCINEX 600 MG PO ×2 (21:06→21:07)
[2024-01-17 23:08] VITALS: BP 100/66
[2024-01-17 23:44] VITALS: BMI 34.5
[2024-01-18] MEDS: DULCOLAX 10 MG RECTAL (04:26)
[2024-01-18 07:35] VITALS: BP 108/63
[2024-01-18] MEDS: ALDACTONE 25 MG PO (08:07)
[2024-01-18] MEDS: PROTONIX 40 MG PO (08:07)
[2024-01-18] MEDS: ProAmatine 10 MG PO (08:07)
[2024-01-18] MEDS: KCL 40 MEQ PO (08:08)
[2024-01-18] MEDS: REFRESH EYE DROPS (PF) 2 DROPS BOTH EYES (08:08)
[2024-01-18] MEDS: FARXIGA 10 MG PO (08:08)
[2024-01-18] MEDS: THERAGRAN 1 TABLET PO (08:08)
[2024-01-18] MEDS: CARAFATE 1 GRAM PO (08:08)
[2024-01-18] MEDS: ELIQUIS 5 MG PO (08:08)
[2024-01-18] MEDS: LASIX 80 MG PO (08:09)
[2024-01-18] MEDS: ADVAIR HFA 115/21 MCG INHALER 2 PUFF INH (08:28)
[2024-01-18 10:00] VITALS: BMI 34.5
--- NOTE | 2024-01-18 11:20 | CM ---
CM met with Luciana and Chrystal Bruno from the [facility] to discuss SNF transfer as well as waiver services at home once she is ready to leave [facility]. [facility] will work on the FED assessment and assist Luciana with the application for waiver
services.
[facility] is willing to admit Luciana today. TT to Dr. Luna to make him aware; he will place discharge order.
CM will arrange ambulance transport with O2 to [facility].
Plan: Discharge to [facility] today via ambulance with O2.
[facility] report: [phone]
[facility]
--- NOTE | 2024-01-18 11:38 | W.DS.TRANS ---
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
-
Discharge Instructions:
Sleep Apnea Risk Intermediate
Discharge Diagnosis/Procedures Ambulatory dysfunction and failure to thrive.
Diet 2 Gram Sodium
Instructions:
Stand-Alone Forms:
Changes to Home Medications: No
Discharge Medications:
DC Medications w/original date entered in [place]
montelukast 10 mg tablet 10 mg PO HS Lung/breathing issues 06/23/22
apixaban 5 mg tablet (Eliquis) 5 mg PO BID #60 tabs 07/01/22
rosuvastatin 20 mg tablet 20 mg PO HS High Cholesterol 02/17/23
fluticasone 250 mcg-salmeterol 50 mcg/dose blistr powdr for inhalation (Wixela Inhub) 2 inh inhalation R BID Lung/Breathing Issues 02/22/23
therapeutic multivitamin 1 tab PO DAILY Supplement ##0 04/16/23
midodrine 10 mg tablet 10 mg PO BID Blood Pressure 10/12/23
spironolactone 25 mg tablet (Aldactone) 25 mg PO DAILY Fluid Retention/Swelling 10/12/23
pantoprazole 40 mg tablet,delayed release 40 mg PO BID #60 tabs 10/21/23
acetaminophen 325 mg tablet 650 mg (2 x 325 mg) PO Q4HPRN PRN mild pain/BURROWS/temp>100.5 #0 tabs 11/22/23
dapagliflozin propanediol 10 mg tablet 10 mg PO DAILY #0 tabs 11/22/23
gabapentin 300 mg capsule 300 mg PO HS #0 caps 11/22/23
bisacodyl 10 mg rectal suppository (Dulcolax (bisacodyl)) 10 mg [place] DAILYPRN PRN mom ineffective 12/31/23
cetirizine 10 mg capsule (Zyrtec) 10 mg PO HS Allergies 12/31/23
dextran 70-hypromellose eye drops in a dropperette (Artificial Tears (PF) drops in a dropperette) 2 drp BOTH EYES TID Eye Condition 12/31/23
docusate sodium 100 mg capsule 100 mg PO BIDPRN PRN constipation 12/31/23
fluticasone propionate 50 mcg/actuation nasal spray,suspension 1 spray intranasal DAILY Allergies 12/31/23
furosemide 80 mg tablet (Lasix) 80 mg PO BID Fluid retention/Swelling 12/31/23
guaifenesin 200 mg tablet 600 mg PO HS Cough 12/31/23
magnesium hydroxide 400 mg/5 mL oral suspension (Milk of Magnesia) 30 ml PO [id number] PRN no bm 3 days 12/31/23
potassium chloride 20 mEq tablet,extended release 40 meq PO TID Electrolyte Repletion 12/31/23
sodium phosphates 19 gram-7 gram/118 mL enema (Fleet Enema) 118 ml IL DAILYPRN PRN if dulcolax ineffective 12/31/23
sucralfate 1 gram tablet 1 g PO BID Gastrointestinal Issue 12/31/23
Home Medication Changes
Pending Results: No
[2024-01-18 12:50] VITALS: BP 95/64
== END 2024-01-18 14:17 ==
LOC: 4 EAST ACU 19:29
PROVIDERS: Clinical Nurse Specialist Family Health; Nurse Practitioner; ADMITTING PHYSICIAN Hospitalist; ATTENDING PHYSICIAN Internal Medicine; EMERGENCY PHYSICIAN Emergency Medicine
DX: R62.7 Adult failure to thrive (principal); I11.0 Hypertensive heart disease with heart failure; R26.2 Difficulty in walking, not elsewhere classified; G89.29 Other chronic pain; M54.50 Low back pain, unspecified; I50.22 Chronic systolic (congestive) heart failure; I48.21 Permanent atrial fibrillation; E87.1 Hypo-osmolality and hyponatremia; G47.33 Obstructive sleep apnea (adult) (pediatric); J96.11 Chronic respiratory failure with hypoxia; J45.909 Unspecified asthma, uncomplicated; E78.00 Pure hypercholesterolemia, unspecified; K21.00 Gastro-esophageal reflux disease with esophagitis, without bleeding; F41.9 Anxiety disorder, unspecified; F43.10 Post-traumatic stress disorder, unspecified; I05.0 Rheumatic mitral stenosis; E87.6 Hypokalemia; E66.09 Other obesity due to excess calories; K59.09 Other constipation; I95.89 Other hypotension; R32 Unspecified urinary incontinence; R15.9 Full incontinence of feces; Z66 Do not resuscitate; Z99.3 Dependence on wheelchair; Z60.2 Problems related to living alone; Z95.0 Presence of cardiac pacemaker; Z98.84 Bariatric surgery status; Z59.86 Financial insecurity; Z59.87 Material hardship due to limited financial resources, not elsewhere classified; Z59.12 Inadequate housing utilities; Z58.81 Basic services unavailable in physical environment; Z59.89 Other problems related to housing and economic circumstances; Z75.1 Person awaiting admission to adequate facility elsewhere; Z85.828 Personal history of other malignant neoplasm of skin; Z87.01 Personal history of pneumonia (recurrent); Z87.11 Personal history of peptic ulcer disease; Z79.01 Long term (current) use of anticoagulants; Z85.3 Personal history of malignant neoplasm of breast; Z99.81 Dependence on supplemental oxygen; Z87.891 Personal history of nicotine dependence; Z90.49 Acquired absence of other specified parts of digestive tract; Z86.73 Personal history of transient ischemic attack (TIA), and cerebral infarction without residual deficits; Z88.5 Allergy status to narcotic agent; Z79.51 Long term (current) use of inhaled steroids; Z68.34 Body mass index [BMI] 34.0-34.9, adult
CPT/HCPCS: 80053; 85025; 94640; 97163; 97167; 97530; 97542; 99285; G0378

== ENCOUNTER 2024-02-01 07:33 | Inpatient (IN) | payer MEDICARE, OTHER, SELFPAY ==
[2024-01-29 18:41] VITALS: BMI 39.4
[2024-01-29 18:48] VITALS: BP 105/67
[2024-01-29 18:55] LABS: % Basophils 1.3 % (0-2); % Eosinophils 3.4 % (0-6); % Immature Granulocytes 0.4 % (0-0.5); % Lymphocytes 20.2 % (20.5-51.1); % Monocytes 6.5 % (1.7-9.3); % Neutrophils 68.2 % (42.2-75.2); Absolute Basophils 0.1 10^3/uL (0-0.2); Absolute Eosinophils 0.2 10^3/uL (0-0.7); Absolute Lymphocytes 1.4 10^3/uL (1.2-3.4); Absolute Monocytes 0.4 10^3/uL (0.1-0.6); Absolute Neutrophils 4.6 10^3/uL (1.4-6.5); Hematocrit 36.9 % (37.0-47.0); Mean Corp Hgb Conc. 32.5 g/dL (33.0-37.0); Mean Corpuscular Hgb 28.4 pg (27.0-31.0); Mean Corpuscular Volume 87.2 fL (81.0-99.0); Mean Platelet Volume 9.7 fL (7.4-10.4); Nucleated Red Blood Cells % 0.6 %; Platelet Count 319 10^3/uL (130-400); Red Blood Cell Count 4.23 10^6/uL (4.20-5.40); Red Cell Dist. Width 17.6 % (11.5-14.5); White Blood Cell Count 6.7 10^3/uL (4.8-10.8)
[2024-01-29 19:00] VITALS: BP 87/60
[2024-01-29 19:10] LABS: ALT (SGPT) 18 U/L (0-35); AST (SGOT) 37 U/L (14-36); Albumin 2.9 g/dl (3.5-5.0); Alkaline Phosphatase 133 U/L (38-126); Blood Urea Nitrogen 17 mg/dl (7-17); Calcium 8.8 mg/dl (8.4-10.2); Carbon Dioxide 24 mmol/L (22-30); Chloride 97 mmol/L (98-107); Estimated Creatinine Clearance 84 ml/min; Glucose 135 mg/dl (70-99); Lipase 105 U/L (23-300); Sodium 133 mmol/L (135-145); Total Bilirubin 1.6 mg/dl (0.2-1.3); Total Protein 6.6 g/dl (6.3-8.2); eGFR > 60.00
[2024-01-29 20:21] LABS: Lactic Acid 2.1 mmol/L (0.7-2.0)
[2024-01-29] MEDS: BENTYL 20 MG IM (20:35)
[2024-01-29 20:38] VITALS: BP 108/75
[2024-01-29] MEDS: NSS 250 IV (20:47)
[2024-01-29 21:00] VITALS: BP 91/63
--- NOTE | 2024-01-29 21:22 | ED.GENMED ---
History of Present Illness
General
Chief Complaint: Abdominal Pain
Source: patient
Exam Limitations: none
Time Seen by Provider: 01/29/24 19:23
Nursing documentation reviewed up to this point in time: agreed with
History of Present Illness
History of Present Illness:
68-year-old female with many comorbidities including A-fib currently on Eliquis CHF hypertension hyperlipidemia, multiple previous abdominal surgeries presenting to the emergency department today with concerns of lower abdominal pain to the mainly
to the right lower quadrant as well as rectal pain over the past 4 days. Difficulty with bowel movements and decreased appetite. Denies specific fevers chest pain shortness of breath.
Past History
Past History
ED Past Medical History: Arrthythmia (Atrial fib), Asthma, Cancer (breast, Skin), CHF, CVA (TIA), GERD, HTN, Hypercholesterolemia, Psychiatric (Anxiety, PTSD), Other (RAMY, PNA, Sleep apnea, Various Vein, Peptic ulcer) and Other (mvp)
ED Past Surgical History: Cardiac (pacemaker, Ablation), Cholecystectomy, , Tonsilectomy and Other ( Left breast lumpectomy with aixllary lymph nodes, Hernia, Gastric bypass)
Social History
Tobacco: Former smoker
Alcohol: None
Drug: None
Personal: Single ('pham')
Living: alone
Employment: Not employed
Review of Systems
Review of Systems
Allergies reviewed?: Yes
All Other Systems: ROS reviewed and negative except as documented in HPI and ROS
Phy Exam
Physical Exam
Physical Exam:
GENERAL: Alert , in no apparent distress
EYE: pupils equal and reactive
NECK: Supple, no significant adenopathy.
ENT: o/p clr, mmm.
CARDIAC: Regular rate and rhythm .
LUNGS: Clear breath sounds bilaterally, no acute respiratory distress, no wheezes/rales/rhonchi
ABDOMEN: Mild discomfort to the right lower quadrant of the abdomen otherwise soft abdomen.
NEUROLOGICAL: Alert and oriented, no focal neuro deficits
SKIN: Warm and dry, skin intact.
MUSCULOSKELETAL: No edema, well perfused.
PSYCH: Normal and appropriate interaction.
Course
Orders/Labs/Results
Orders:
Orders
01/29/24 18:40
IV Insert/Care/Rem.- Treatment PRN
01/29/24 18:47
Complete Blood Count/With Diff Urgent
Comprehensive Metabolic Panel Urgent
Lipase Urgent
01/29/24 19:55
CT Abd/Pel (IV only)-DH only Urgent
Comment:
Reason For Exam: lower abd pain rectal pain
01/29/24 20:04
Lactic Acid Urgent
01/29/24 20:27
Dicyclomine HCl [Bentyl] 20 mg IM NOW STA
01/29/24 20:28
0.9% Sodium Chloride 250 ml [Nss] 250 ml IV BOLUS
01/29/24 22:11
Urinalysis Reflex To Culture Routine
01/29/24 22:49
Acetaminophen 1000MG/100Ml [Ofirmev] 1,000 mg in 100 ml IV ONCE
Acetaminophen IV Indication:: Ileus/Delayed Bowel Func.
01/29/24 23:10
Admit/Transfer Patient As Directed
Co-Sign Provider:
Level of Care: Observation services
Assign to:: Medical/Surgical
Physician / Group: eimly
Diagnosis: constipation/stercoral colitis
01/29/24 23:11
Code Status As Directed
Resuscitation Status: Do not resuscitate
Reached after discussion with pt or family/Healthcare POA: Yes
PRN Pain Medication Management As Directed
May give lesser potent ordered pain med per pt: Yes
preference::
Protocol:: Medication orders for pain may be administered in a
manner that supports deferring to patient preference
when the pt is:
- Requesting an ordered lesser potent pain medication.
Least to most potent pain medications are defined
as: acetaminophen < NSAID < tramadol < opioids
(morphine, oxycodone, hydromorphone).
- Requesting a lesser dose of the same medication IF
ORDERED.
- Requesting a less intrusive route of administration
if both routes are prescribed by the provider (PO <
IV).
01/29/24 23:12
DNR Bracelet Application ONCE
Abnormal Lab Results
01/29/24 01/29/24
18:47 20:04
Hct 36.9 L %
(37.0-47.0)
MCHC 32.5 L g/dL
(33.0-37.0)
RDW 17.6 H %
(11.5-14.5)
Lymphocytes % 20.2 L %
(20.5-51.1)
Sodium 133 L mmol/L
(135-145)
Chloride 97 L mmol/L
(98-107)
Glucose 135 H mg/dl
(70-99)
Lactic Acid 2.1 H mmol/L
(0.7-2.0)
Total Bilirubin 1.6 H mg/dl
(0.2-1.3)
AST 37 H U/L
(14-36)
Alkaline Phosphatase 133 H U/L
(38-126)
Albumin 2.9 L g/dl
(3.5-5.0)
01/29/24 18:47
01/29/24 18:47
Vital Signs
Initial and Last Documented VS:
Initial Vital Signs
Pulse Resp Pulse Ox
88 17 96
01/29/24 18:41 01/29/24 18:41 01/29/24 18:41
Last Documented Vital Signs
Pulse Resp BP Pulse Ox
70 11 108/75 94
01/29/24 19:30 01/29/24 19:30 01/29/24 20:38 01/29/24 20:38
MDM/Problems Addressed
MDM/Problems Addressed:
68-year-old female presenting to the emergency department today with concerns of abdominal pain rectal pain persisting over the past 4 days. Upon arrival blood pressure was somewhat low but this improved without specific treatment to the low 100s.
She claims she does have a history of low blood pressure and does take midodrine as needed. Otherwise labs obtained without significant white count otherwise no emergent findings on labs bilirubin chronically elevated. Plan for CT scan for further
assessment. CT scan showing potential stercoral colitis concerning the patient has severe discomfort to the area plan to admit for general surgery and GI consultation considering risk of significant bowel injury with ER attempts at disimpaction.
*Critical Care Note
Total Time (30-74mins, 75-104mins- exclusive of procedures): Not Applicable
ED Attending Note
-
Portions of this chart may have been created with voice recognition software.� Occasional wrong word or��sound alike� substitutions may have occurred due to the inherent limitations of voice recognition software.
Discharge Plan
Departure
Patient Disposition: Admit
Date of Disposition: 01/29/24
Time of Disposition: 23:22
Admit to: Med/Surg
Admit to doctor: Tommy
Presentation/result/management discussed w/ accepting MD/DO: Hospitalist
Patient with high blood pressure during this ER visit?: No
Condition: Good
Covid-19: Not Applicable
Discharge Problem:
Stercoral colitis
Prescriptions:
No Action
montelukast 10 mg Tablet
10 mg PO HS
Eliquis 5 mg Tablet
5 mg PO BID Qty: 60 0RF
rosuvastatin 20 mg Tablet
20 mg PO HS
fluticasone propion-salmeterol [Wixela Inhub] 250-50 mcg/dose Blister With Device
2 inh INHALATION R BID
therapeutic multivitamin Tablet
1 tab PO DAILY Qty: 0
midodrine 10 mg tablet
10 mg PO BID
spironolactone [Aldactone] 25 mg tablet
25 mg PO DAILY
pantoprazole 40 mg Tablet,Delayed Release (Dr/Ec)
40 mg PO BID Qty: 60 0RF
dapagliflozin propanediol 10 mg Tablet
10 mg PO DAILY Qty: 0 0RF
acetaminophen 325 mg Tablet
650 mg PO Q4HPRN MDD 3000 mg PRN (Reason: mild pain/BURROWS/temp>100.5) Qty: 0 0RF
gabapentin 300 mg Capsule
300 mg PO HS Qty: 0 0RF
guaifenesin 200 mg Tablet
600 mg PO HS
magnesium hydroxide [Milk of Magnesia] 400 mg/5 mL Suspension
30 ml PO [id number] PRN (Reason: no bm 3 days)
bisacodyl [Dulcolax (bisacodyl)] 10 mg Suppository
10 mg CA DAILYPRN PRN (Reason: mom ineffective)
Fleet Enema 19-7 gram/118 mL Enema
118 ml CA DAILYPRN PRN (Reason: if dulcolax ineffective)
docusate sodium 100 mg Capsule
100 mg PO BIDPRN PRN (Reason: constipation)
fluticasone propionate 50 mcg/actuation [place],Suspension
1 spray INTRANASAL DAILY
Artificial Tears (PF) Dropperette
2 drp BOTH EYES TID
Zyrtec 10 mg Capsule
10 mg PO HS
sucralfate 1 gram tablet
1 g PO BID
furosemide [Lasix] 80 mg tablet
80 mg PO BID
potassium chloride 20 mEq tablet extended release
40 meq PO TID
Referrals:
Miguel Evans MD [Family Provider] -
Interventions
Interventions:
*Risk Screen - Suicide Last Done: 01/29/24 18:41
*General Assessment Last Done: 01/29/24 18:41
*Neglect/Abuse Screening Last Done: 01/29/24 18:41
*ED COVID-19 Vaccine History Last Done: 01/29/24 18:41
YL-Ppzqct-Txsjlbthfa Assessment Last Done: 01/29/24 18:41
Discharge Date and Time
Print Language: PARAGUAYAN
[2024-01-29 22:41] VITALS: BP 97/69
[2024-01-29] MEDS: OFIRMEV 100 IV (22:57)
[2024-01-29 23:03] VITALS: BP 116/70
--- NOTE | 2024-01-29 23:17 | HPS.HSE ---
Family Physician
-
Family Physician: Miguel Evans
Chief Complaint
-
abdominal pain
History of Present Illness
68-year-old female past medical history of permanent atrial fibrillation on Eliquis, HFrEF, chronic hypotension, hyponatremia, chronic hypoxemic respiratory failure on 2 L baseline, asthma, obstructive sleep apnea, CVA, wheelchair-bound presenting
with lower abdominal pain particularly in the right lower quadrant as well as rectal pain over the past week. She denies fevers or chills. He has been having difficulty having bowel movements and decreased appetite. Her last bowel movement was 4
days ago with only a little bit of stool. She denies any blood in the stool. Denies nausea or vomiting.
She also does complain of urinary burning and frequency.
Medical History
Past Medical History
Past Medical History: Reports Other (permanent atrial fibrillation on Eliquis, HFrEF, chronic hypotension, hyponatremia, chronic hypoxemic respiratory failure on 2 L baseline, asthma, obstructive sleep apnea, CVA, wheelchair-bound)
Past Surgical History: Reports Other ( Cardiac (pacemaker, Ablation), Cholecystectomy, , Tonsilectomy and Other ( Left breast lumpectomy with aixllary lymph nodes, Hernia, Gastric bypass))
Social History
Tobacco: Non-smoker
Alcohol: None
Drug: None
Family History
Family History: Not pertinent
Allergies / Home Medications
Allergies reflects when Allergies were last updated in [email or web address].
Home Medications with original date entered in [email or web address]
Allergy/Medication List:
Allergies
Allergy/AdvReac Type Severity Reaction Status Date / Time
codeine Allergy 'loopy' Verified 12/31/23 15:18
Home Medications
montelukast 10 mg tablet 10 mg PO HS Lung/breathing issues 06/23/22
apixaban 5 mg tablet (Eliquis) 5 mg PO BID #60 tabs 07/01/22
rosuvastatin 20 mg tablet 20 mg PO HS High Cholesterol 02/17/23
fluticasone 250 mcg-salmeterol 50 mcg/dose blistr powdr for inhalation (Wixela Inhub) 2 inh inhalation R BID Lung/Breathing Issues 02/22/23
therapeutic multivitamin 1 tab PO DAILY Supplement ##0 04/16/23
midodrine 10 mg tablet 10 mg PO BID Blood Pressure 10/12/23
spironolactone 25 mg tablet (Aldactone) 25 mg PO DAILY Fluid Retention/Swelling 10/12/23
pantoprazole 40 mg tablet,delayed release 40 mg PO BID #60 tabs 10/21/23
acetaminophen 325 mg tablet 650 mg (2 x 325 mg) PO Q4HPRN PRN mild pain/BURROWS/temp>100.5 #0 tabs 11/22/23
dapagliflozin propanediol 10 mg tablet 10 mg PO DAILY #0 tabs 11/22/23
gabapentin 300 mg capsule 300 mg PO HS #0 caps 11/22/23
bisacodyl 10 mg rectal suppository (Dulcolax (bisacodyl)) [address] DAILYPRN PRN mom ineffective 12/31/23
cetirizine 10 mg capsule (Zyrtec) 10 mg PO HS Allergies 12/31/23
dextran 70-hypromellose eye drops in a dropperette (Artificial Tears (PF) drops in a dropperette) 2 drp BOTH EYES TID Eye Condition 12/31/23
docusate sodium 100 mg capsule 100 mg PO BIDPRN PRN constipation 12/31/23
fluticasone propionate 50 mcg/actuation nasal spray,suspension 1 spray intranasal DAILY Allergies 12/31/23
furosemide 80 mg tablet (Lasix) 80 mg PO BID Fluid retention/Swelling 12/31/23
guaifenesin 200 mg tablet 600 mg PO HS Cough 12/31/23
magnesium hydroxide 400 mg/5 mL oral suspension (Milk of Magnesia) 30 ml PO [id number] PRN no bm 3 days 12/31/23
potassium chloride 20 mEq tablet,extended release 40 meq PO TID Electrolyte Repletion 12/31/23
sodium phosphates 19 gram-7 gram/118 mL enema (Fleet Enema) [address] DAILYPRN PRN if dulcolax ineffective 12/31/23
sucralfate 1 gram tablet 1 g PO BID Gastrointestinal Issue 12/31/23
Review of Systems
-
History Source: Patient
A 12 point ROS was completed and negative except as noted: Yes
Constitutional: Reports No Symptoms
EENT: Reports No Symptoms
Respiratory: Reports No Symptoms
Cardiac: Reports No Symptoms
Abdomen/GI: Reports See HPI
: Reports No Symptoms
Musculoskeletal: Reports No Symptoms
Skin: Reports No Symptoms
Neurological: Reports No Symptoms
Endocrine: Reports No Symptoms
Hematologic/Lymphatic: Reports No Symptoms
Psych: Reports No Symptoms
Physical Exam
Vital Signs
Vital Signs
Pulse Resp BP Pulse Ox
70 11 108/75 94
01/29/24 19:30 01/29/24 19:30 01/29/24 20:38 01/29/24 20:38
Physical Exam
General: Well Developed, Well Nourished and No Apparent Distress
HEENT: NormoCephalic, Moist mucous membranes and Atraumatic
Respiratory: Clear
Cardiac: S1/S2 and Regular Rhythm; No Murmur or Rub
GI: Soft, Non Distended, Normal Bowel Sounds and Tender (RLQ ); No Organomegaly
Rectal: Deferred by Provider
Musculoskeletal: No Clubbing, No Cyanosis and No Edema
Skin: No Rash
Neuro: Nonfocal/grossly intact
Laboratory Results
-
01/29/24 18:47
01/29/24 18:47
Laboratory Results
Lactic Acid 2.1 mmol/L (0.7-2.0) H 01/29/24 20:04
Total Bilirubin 1.6 mg/dl (0.2-1.3) H 01/29/24 18:47
AST 37 U/L (14-36) H 01/29/24 18:47
ALT 18 U/L (0-35) 01/29/24 18:47
Alkaline Phosphatase 133 U/L (38-126) H 01/29/24 18:47
Lipase 105 U/L (23-300) 01/29/24 18:47
Data Reviewed
-
Lab Data: Labs Reviewed by me
Old Records: Reviewed
Impression/Plan
-
IMPRESSION:
PLAN:
# Abdominal pain secondary to constipation/stercoral colitis secondary to ambulatory dysfunction
-CT abdomen pelvis shows moderate stranding of the fat surrounding the urinary bladder suggesting cystitis, moderate distention of the rectum with stool, subtle mild stranding of the peritoneal fat suggesting minimal stercoral colitis, mild
thickening of the anal wall
-Mag citrate to be given
-milk/molasses Enema if no improvement
-Add MiraLAX
-Continue docusate
-Clear liquid diet
# Likely UTI
-Check urinalysis
Chronic ambulatory dysfunction, wheelchair-bound
Chronic HFrEF
-Continue Lasix
-Continue potassium
-Continue dapagliflozin
-Continue spironolactone
Permanent atrial fibrillation
-Continue Eliquis
Chronic hypotension
-Continue midodrine
Chronic hyponatremia
Allergic asthma
-Continue inhalers
-Continue montelukast
Obstructive sleep apnea
Chronic hypoxemic respiratory failure on 2 L baseline
History of esophagitis
GERD
-Continue Protonix
-Continue sucralfate
History of CVA
Hypercholesterolemia
-Continue statin
Anxiety
History of breast cancer
Obesity secondary to excess calories
Chronic lower back pain
-Continue gabapentin
DNR/DNI
DVT prophylaxis�Eliquis
Clear liquid diet
[2024-01-30 00:01] VITALS: BP 98/71
[2024-01-30 01:19] VITALS: BP 98/70
[2024-01-30 01:20] VITALS: BMI 39.4
[2024-01-30 01:22] VITALS: BMI 37.2
--- NOTE | 2024-01-30 01:30 | PTCARENOTE ---
Pt received from Ed at 2345. Pt AAOX3, VSS, and pulled over into bed from stretcher. Pt complains of 7/10 anus and lower abdominal pain, RN gave pt PRN Tylenol. Pt bed in lowest positions and call simon within reach. Pt informed on importance of call
simon and pt replays understanding. Pt pleasant and cooperative. Will continue with current plan of care.
[2024-01-30] MEDS: TYLENOL 650 MG PO (02:00)
[2024-01-30] MEDS: CITROMA 300 ML PO (04:09)
[2024-01-30 06:00] VITALS: BMI 37.2
[2024-01-30 07:24] VITALS: BP 98/62
[2024-01-30 08:26] LABS: % Basophils 1.5 % (0-2); % Eosinophils 4.5 % (0-6); % Immature Granulocytes 0.4 % (0-0.5); % Lymphocytes 18.6 % (20.5-51.1); % Monocytes 6.5 % (1.7-9.3); % Neutrophils 68.5 % (42.2-75.2); Absolute Basophils 0.1 10^3/uL (0-0.2); Absolute Eosinophils 0.3 10^3/uL (0-0.7); Absolute Lymphocytes 1.4 10^3/uL (1.2-3.4); Absolute Monocytes 0.5 10^3/uL (0.1-0.6); Absolute Neutrophils 5.1 10^3/uL (1.4-6.5); Hematocrit 37.9 % (37.0-47.0); Mean Corp Hgb Conc. 31.7 g/dL (33.0-37.0); Mean Corpuscular Volume 88.3 fL (81.0-99.0); Mean Platelet Volume 10.1 fL (7.4-10.4); Nucleated Red Blood Cells % 0.4 %; Platelet Count 317 10^3/uL (130-400); Red Blood Cell Count 4.29 10^6/uL (4.20-5.40); Red Cell Dist. Width 17.7 % (11.5-14.5); White Blood Cell Count 7.4 10^3/uL (4.8-10.8)
[2024-01-30] MEDS: ADVAIR HFA 115/21 MCG INHALER INH ×2 (08:36→20:54)
[2024-01-30 08:56] LABS: ALT (SGPT) 18 U/L (0-35); AST (SGOT) 28 U/L (14-36); Albumin 2.8 g/dl (3.5-5.0); Alkaline Phosphatase 138 U/L (38-126); Blood Urea Nitrogen 16 mg/dl (7-17); Calcium 8.7 mg/dl (8.4-10.2); Carbon Dioxide 25 mmol/L (22-30); Chloride 97 mmol/L (98-107); Estimated Creatinine Clearance 84 ml/min; Glucose 87 mg/dl (70-99); Potassium 3.1 mmol/L (3.5-5.1); Sodium 135 mmol/L (135-145); Total Bilirubin 1.7 mg/dl (0.2-1.3); Total Protein 6.5 g/dl (6.3-8.2); eGFR > 60.00
[2024-01-30] MEDS: LASIX 80 MG PO ×2 (10:10→19:58)
[2024-01-30] MEDS: CARAFATE 1 GRAM PO ×2 (10:10→19:56)
[2024-01-30] MEDS: ELIQUIS 5 MG PO ×2 (10:10→19:56)
[2024-01-30] MEDS: FARXIGA 10 MG PO (10:10)
[2024-01-30] MEDS: THERAGRAN 1 TABLET PO (10:11)
[2024-01-30] MEDS: KCL 40 MEQ PO ×3 (10:11→21:59)
[2024-01-30] MEDS: ALDACTONE 25 MG PO (10:11)
[2024-01-30] MEDS: DULCOLAX 10 MG RECTAL (10:12)
[2024-01-30] MEDS: PROTONIX 40 MG PO ×2 (10:12→19:57)
[2024-01-30] MEDS: REFRESH EYE DROPS (PF) 2 DROPS BOTH EYES ×3 (10:12→21:59)
[2024-01-30] MEDS: ProAmatine 10 MG PO ×2 (10:12→20:00)
[2024-01-30] MEDS: ROCEPHIN 1000 MG IV (10:13)
[2024-01-30] MEDS: STERILE WATER FOR INJECTION 10 ML IV (10:13)
[2024-01-30] MEDS: TYLENOL PO (11:49)
--- NOTE | 2024-01-30 11:57 | W.PN.HOSP.TC ---
Today's Communication/Plan
-
Start IV ceftriaxone for suspected UTI, follow-up UA and culture
Continue with bowel regimen, as needed enema if other methods fail
Assessment / Plan
Assessment / Plan
#Stercoral colitis
#Abdominal pain
-CT A/P here showed moderate rectal distention with stool and anal wall thickening consistent with stercoral colitis
-Question if urinary tract infection is contributing to constipation
-Was given magnesium citrate though was not able to tolerate the taste
-Started on standing dose MiraLAX and docusate, ordered bisacodyl suppository this morning
-Continue with as needed enema if other measures fail
-Continue with clear liquid diet for now
#Suspected UTI
-States she has had dysuria, also here with constipation
-No leukocytosis or fevers at this time
-Will start IV CTX empirically and follow-up UA and culture
#HFmrEF
-Most recent echo showed LVEF 45%
-Medications include SGLT2, Aldactone, Lasix
-Seems euvolemic as of now
#Permanent atrial fibrillation
-Home medications include Eliquis and
#Chronic hypotension
-Stable on midodrine regimen
#Chronic hypoxemic respiratory failure
#Obstructive sleep apnea
#Allergic asthma
-Home medications include inhaler regimen, montelukast
-Currently uses 2 L of oxygen at baseline
-Stable
#GERD
#H/O esophagitis
-Medications include PPI and sucralfate
-Stable as of now
#Dyslipidemia
-Home regimen includes statin
#Chronic ambulatory dysfunction�wheelchair-bound
#Chronic low back pain
-Remains on home gabapentin regimen
#H/O breast cancer
#Obesity
CODE STATUS: DNR/DNI
DVT prophylaxis: Eliquis
Diet: CLD
Anticipated Discharge: 24 - 48 hours
Subjective/Interval History
-
Date of Service: January 30, 2024
Seen and examined at bedside. No acute events overnight. AFVSS this morning on baseline oxygen
Has not had a bowel movement. States she tried to drink the magnesium citrate though did not like the taste. Bisacodyl suppository ordered. States that she does have dysuria over the last day or 2, denies fevers or chills.
She denies any other acute complaints.
Objective Data
-
Labs:
Laboratory Results
01/30/24
07:15
WBC 7.4
Hgb 12.0
Hct 37.9
Plt Count 317
Sodium 135
Potassium 3.1 L
Chloride 97 L
Carbon Dioxide 25
BUN 16
Creatinine 0.8
Glucose 87
Calcium 8.7
Total Bilirubin 1.7 H
AST 28
ALT 18
Alkaline Phosphatase 138 H
Vital Signs:
Vital Signs
Temp Pulse Resp BP Pulse Ox
97.5 F 78 18 98/62 96
01/30/24 07:24 01/30/24 07:24 01/30/24 07:24 01/30/24 07:24 01/30/24 07:24
Review of Systems
-
History Source: Patient
All other systems: Reviewed and negative
Physical Exam
-
General: No Apparent Distress, Comfortable and Obese
HEENT: Normocephalic, Atraumatic and Moist Mucous Membranes
Respiratory: Clear to Auscultation and Non Labored Respirations; Negative Wheezes, Rales or Rhonchi
Cardiac: Regular Rhythm and S1/S2; Negative Murmur, Rub, JVD or Gallop
GI: Soft, Nontender, Nondistended and Normal Bowel Sounds
Genito-urinary: No Costovertebral Tender
Musculoskeletal: No Clubbing, No Cyanosis and No Edema
Skin: Warm and Dry; Negative Rash
Neuro: AO x 3, Nonfocal/Grossly Intact and Central Nerve's Intact
Psych: Calm
Data Reviewed
-
Labs: Labs Reviewed by me and Discussed with Patient
[2024-01-30] MEDS: DILAUDID 0.25 MG IV (14:48)
--- NOTE | 2024-01-30 15:00 | PTCARENOTE ---
Patient reports rectal pain and burning. Suppository administered per MD order. Post suppository a fecal impaction was noted at rectum. MD notified, see MAR. Soap lela enema administered with positive results. Patient having moderate formed BM.
Appearing more comfortable after moving bowels.
[2024-01-30] MEDS: DILAUDID 0.5 MG IV (15:20)
[2024-01-30 15:45] VITALS: BP 118/86
[2024-01-30 17:21] LABS: Urine Albumin Trace (Neg - Trace); Urine Bilirubin Negative (Negative); Urine Character Slightly Cloudy (Clear); Urine Color Yellow; Urine Glucose 3+ (Negative); Urine Ketone Negative (Negative); Urine Leukocyte 1+ (Negative); Urine Nitrite Negative (Negative); Urine Occult Blood 2+ (Negative); Urine Specific Gravity 1.015 (<1.030); Urine Urobilinogen Negative (Neg - 1+)
[2024-01-30 17:28] LABS: Urine Bacteria Few (Negative); Urine White Cell 26-30 /HPF (0-5)
--- NOTE | 2024-01-30 17:36 | PTCARENOTE ---
Addendum entered by Allyson Lehman RN 01/30/24 18:42:
Call pl;carolyn to [facility] to attempt to obtain patient's current medication list. Spoke with and RN who said they would fax patient's most current medication list. Still waiting fax at this time.
Original Note:
Pt unable to verify home meds.
[2024-01-30] MEDS: SINGULAIR 10 MG PO (21:59)
[2024-01-30] MEDS: ZYRTEC 10 MG PO (21:59)
[2024-01-30] MEDS: NEURONTIN 300 MG PO (21:59)
[2024-01-30] MEDS: MUCINEX 600 MG PO (21:59)
[2024-01-30] MEDS: CRESTOR 20 MG PO (21:59)
[2024-01-30 23:19] VITALS: BP 112/79
[2024-01-31 06:00] VITALS: BMI 36.7
[2024-01-31 07:40] VITALS: BP 89/62
[2024-01-31] MEDS: PROTONIX 40 MG PO ×2 (08:18→20:02)
[2024-01-31] MEDS: ProAmatine 10 MG PO ×2 (08:18→20:02)
[2024-01-31] MEDS: FARXIGA 10 MG PO (08:18)
[2024-01-31] MEDS: CARAFATE 1 GRAM PO ×2 (08:19→20:02)
[2024-01-31] MEDS: KCL 40 MEQ PO ×3 (08:19→21:13)
[2024-01-31] MEDS: ADVAIR HFA 115/21 MCG INHALER 2 PUFF INH (08:19)
[2024-01-31] MEDS: ELIQUIS 5 MG PO ×2 (08:19→20:02)
[2024-01-31] MEDS: THERAGRAN 1 TABLET PO (08:19)
[2024-01-31] MEDS: REFRESH EYE DROPS (PF) 2 DROPS BOTH EYES ×3 (08:20→21:13)
[2024-01-31 08:36] VITALS: BP 88/65
--- NOTE | 2024-01-31 09:17 | W.PN.HOSP.TC ---
Today's Communication/Plan
-
Increase laxatives
Repeat KUB
Assessment / Plan
Assessment / Plan
#Stercoral colitis
#Abdominal pain
-CT A/P here showed moderate rectal distention with stool and anal wall thickening consistent with stercoral colitis
-Improving, increase laxatives, repeat KUB
#Suspected UTI
-States she has had dysuria, also here with constipation
-No leukocytosis or fevers at this time
-Continue IV Rocephin, follow-up on cultures
#HFmrEF
-Most recent echo showed LVEF 45%
-Medications include SGLT2, Aldactone, Lasix
-Seems euvolemic as of now
#Permanent atrial fibrillation
-Continue Eliquis
#Chronic hypotension
-Stable on midodrine regimen
#Chronic hypoxemic respiratory failure
#Obstructive sleep apnea
#Allergic asthma
-Home medications include inhaler regimen, montelukast
-Currently uses 2 L of oxygen at baseline
-Stable
#GERD
#H/O esophagitis
-Medications include PPI and sucralfate
-Stable as of now
#Dyslipidemia
-Home regimen includes statin
#Chronic ambulatory dysfunction�wheelchair-bound
#Chronic low back pain
-Remains on home gabapentin regimen
#H/O breast cancer
#Obesity
DVT prophylaxis�Eliquis
Full code
Physical Exam
General: Morbidly obese, no acute distress
HEENT: Normocephalic, Atraumatic, EOMI, MMM
Respiratory: Diminished breath sounds at the bases
Cardiac: Normal S1/S2, Regular Rate and Rhythm
GI: Soft, Nontender, Nondistended, Normal Bowel Sounds
Extremities: No Clubbing, Cyanosis, or Edema
Musculoskeletal: Atrophy of bilateral lower extremity muscles noted
Neuro: Nonfocal/Grossly Intact
Psych: Calm, Cooperative
Anticipated Discharge: 24 - 48 hours
Subjective/Interval History
-
Date of Service: January 31, 2024
Objective Data
-
Labs:
Laboratory Results
01/31/24
06:00
WBC Pending
Hgb Pending
Hct Pending
Plt Count Pending
Sodium Pending
Potassium Pending
Chloride Pending
Carbon Dioxide Pending
BUN Pending
Creatinine Pending
Glucose Pending
Calcium Pending
Vital Signs:
Vital Signs
Temp Pulse Resp BP Pulse Ox
98.2 F 73 16 88/65 94
01/31/24 07:40 01/31/24 08:36 01/31/24 08:25 01/31/24 08:36 01/31/24 08:25
I&O
01/30/24 01/31/24 02/01/24
06:59 06:59 06:59
Intake Total 840 / 840
Balance 840 / 840
[2024-01-31] MEDS: STERILE WATER FOR INJECTION 10 ML IV (09:22)
[2024-01-31] MEDS: ROCEPHIN 1000 MG IV (09:23)
[2024-01-31] MEDS: DILAUDID 0.25 MG IV ×2 (09:23→18:49)
[2024-01-31 10:18] LABS: % Basophils 1.4 % (0-2); % Eosinophils 2.5 % (0-6); % Immature Granulocytes 0.6 % (0-0.5); % Lymphocytes 14.9 % (20.5-51.1); % Neutrophils 72.6 % (42.2-75.2); Absolute Basophils 0.1 10^3/uL (0-0.2); Absolute Eosinophils 0.2 10^3/uL (0-0.7); Absolute Immature Granulocytes 0.1 10^3/uL (0-0.05); Absolute Lymphocytes 1.2 10^3/uL (1.2-3.4); Absolute Monocytes 0.6 10^3/uL (0.1-0.6); Absolute Neutrophils 5.7 10^3/uL (1.4-6.5); Hematocrit 41.8 % (37.0-47.0); Hemoglobin 13.2 g/dL (12.0-16.0); Mean Corp Hgb Conc. 31.6 g/dL (33.0-37.0); Mean Corpuscular Volume 88.6 fL (81.0-99.0); Mean Platelet Volume 9.6 fL (7.4-10.4); Nucleated Red Blood Cells % 0.8 %; Platelet Count 312 10^3/uL (130-400); Red Blood Cell Count 4.72 10^6/uL (4.20-5.40); Red Cell Dist. Width 17.7 % (11.5-14.5); White Blood Cell Count 7.9 10^3/uL (4.8-10.8)
[2024-01-31 10:24] VITALS: BP 136/71
[2024-01-31] MEDS: ALDACTONE 25 MG PO (10:25)
[2024-01-31] MEDS: LASIX 80 MG PO ×2 (10:25→20:01)
[2024-01-31 10:47] LABS: Blood Urea Nitrogen 12 mg/dl (7-17); Calcium 8.8 mg/dl (8.4-10.2); Carbon Dioxide 22 mmol/L (22-30); Chloride 98 mmol/L (98-107); Estimated Creatinine Clearance 83 ml/min; Glucose 148 mg/dl (70-99); Potassium 4.3 mmol/L (3.5-5.1); Sodium 136 mmol/L (135-145); eGFR > 60.00
--- NOTE | 2024-01-31 13:10 | CM ---
Patient seen bedside, initial assessment completed. Patient came from [facility], confirmed with deneen Vargasison, will accept patient back for SNF when stable, confirmed patient is not LTC, not paying for bed hold. Patient reports things have
been going well at [facility], was receiving therapy daily. TT to Hospitalist for PT/OT orders. JOHANSEN reviewed, refused to sign, placed in chart. CM will continue to follow for all discharge planning needs.
Plan; [facility] when stable.
[2024-01-31] MEDS: SENOKOT-S 2 TABLET PO ×2 (14:13→20:02)
[2024-01-31 15:44] VITALS: BP 95/66
[2024-01-31] MEDS: DUPHALAC/CHRONULAC 20 GRAMS PO (18:49)
[2024-01-31] MEDS: MIRALAX 17 GRAMS PO (20:02)
[2024-01-31] MEDS: SINGULAIR 10 MG PO (20:03)
[2024-01-31] MEDS: ZYRTEC 10 MG PO (20:03)
[2024-01-31] MEDS: CRESTOR 20 MG PO (20:03)
[2024-01-31] MEDS: ADVAIR HFA 115/21 MCG INHALER INH (20:38)
[2024-01-31] MEDS: MUCINEX 600 MG PO (21:13)
[2024-01-31] MEDS: NEURONTIN 300 MG PO (21:13)
[2024-01-31 23:46] VITALS: BP 121/76
[2024-02-01 05:47] VITALS: BMI 37.0
[2024-02-01] MEDS: ProAmatine 10 MG PO ×2 (07:51→20:26)
[2024-02-01] MEDS: THERAGRAN 1 TABLET PO (07:52)
[2024-02-01] MEDS: KCL 40 MEQ PO ×3 (07:52→21:57)
[2024-02-01 07:53] VITALS: BP 101/65
[2024-02-01] MEDS: REFRESH EYE DROPS (PF) 2 DROPS BOTH EYES ×3 (07:53→21:57)
[2024-02-01] MEDS: PROTONIX 40 MG PO ×2 (07:53→20:26)
[2024-02-01] MEDS: ELIQUIS 5 MG PO ×2 (07:53→20:26)
[2024-02-01] MEDS: MIRALAX 17 GRAMS PO ×2 (07:53→20:20)
[2024-02-01] MEDS: SENOKOT-S 2 TABLET PO ×2 (07:54→20:24)
[2024-02-01] MEDS: ALDACTONE 25 MG PO (07:55)
[2024-02-01] MEDS: LASIX 80 MG PO ×2 (07:55→20:23)
[2024-02-01] MEDS: CARAFATE 1 GRAM PO ×2 (07:55→20:26)
[2024-02-01] MEDS: FARXIGA 10 MG PO (07:55)
[2024-02-01] MEDS: ADVAIR HFA 115/21 MCG INHALER 2 PUFF INH (08:09)
[2024-02-01] MEDS: ROCEPHIN 1000 MG IV (11:09)
[2024-02-01] MEDS: STERILE WATER FOR INJECTION 10 ML IV (11:10)
[2024-02-01] MEDS: DULCOLAX 10 MG RECTAL (11:10)
[2024-02-01] MEDS: TORADOL 15 MG IV ×2 (11:37→18:27)
[2024-02-01 15:00] VITALS: BP 97/63
[2024-02-01] MEDS: DUPHALAC/CHRONULAC 20 GRAMS PO (15:26)
--- NOTE | 2024-02-01 16:07 | CM ---
CM met with pt bedside
Pt now inpt- IMM verbally reviewed
Copy provided
update to Alicia/[facility]
Bed remains available for SNF return on dc
Discharge Disposition- return [facility]
--- NOTE | 2024-02-01 17:22 | W.PN.HOSP.TC ---
Today's Communication/Plan
-
Continue IV Rocephin
Dulcolax suppository stat
Assessment / Plan
Assessment / Plan
#Stercoral colitis
#Abdominal pain
-CT A/P here showed moderate rectal distention with stool and anal wall thickening consistent with stercoral colitis
-Improving on increased laxatives
-Give Dulcolax suppository today
#Suspected UTI
-States she has had dysuria, also here with constipation
-No leukocytosis or fevers at this time
-Although urine cultures negative, will continue IV Rocephin in the hospital, Abd CT shows poss cystitis
-Plan to change to oral antibiotics upon discharge to complete a 7-day course
#HFmrEF
-Most recent echo showed LVEF 45%
-Medications include SGLT2, Aldactone, Lasix
-Seems euvolemic as of now
#Permanent atrial fibrillation
-Continue Eliquis
#Chronic hypotension
-Stable on midodrine regimen
#Chronic hypoxemic respiratory failure
#Obstructive sleep apnea
#Allergic asthma
-Home medications include inhaler regimen, montelukast
-Currently uses 2 L of oxygen at baseline
-Stable
#GERD
#H/O esophagitis
-Medications include PPI and sucralfate
-Stable as of now
#Dyslipidemia
-Home regimen includes statin
#Chronic ambulatory dysfunction�wheelchair-bound
#Chronic low back pain
-Remains on home gabapentin regimen
#H/O breast cancer
#Obesity
DVT prophylaxis�Eliquis
Full code
Total time spent to see the patient on the floor, examine the patient, review data and lab results, discuss treatment plan with patient, nursing staff around 45 minutes.
Physical Exam
General: Morbidly obese, no acute distress
HEENT: Normocephalic, Atraumatic, EOMI, MMM
Respiratory: Diminished breath sounds at the bases
Cardiac: Normal S1/S2, Regular Rate and Rhythm
GI: Soft, Nontender, Nondistended, Normal Bowel Sounds
Extremities: No Clubbing, Cyanosis, or Edema
Musculoskeletal: Atrophy of bilateral lower extremity muscles noted
Neuro: Nonfocal/Grossly Intact
Psych: Calm, Cooperative
Anticipated Discharge: Within 24 hours
Subjective/Interval History
-
Date of Service: February 01, 2024
Patient complains of diffuse abdominal pain. No fever, no nausea, no vomiting.
Objective Data
-
Vital Signs:
Vital Signs
Temp Pulse Resp BP Pulse Ox
98.4 F 73 16 97/63 95
02/01/24 15:00 02/01/24 15:00 02/01/24 15:00 02/01/24 15:00 02/01/24 15:00
I&O
01/31/24 02/01/24 02/02/24
06:59 06:59 06:59
Intake Total 840 / 840 1200 / 1200
Balance 840 / 840 1200 / 1200
[2024-02-01] MEDS: ADVAIR HFA 115/21 MCG INHALER INH (20:28)
[2024-02-01] MEDS: NEURONTIN 300 MG PO (21:56)
[2024-02-01] MEDS: MUCINEX 600 MG PO (21:57)
[2024-02-01] MEDS: SINGULAIR 10 MG PO (21:57)
[2024-02-01] MEDS: ZYRTEC 10 MG PO (22:01)
[2024-02-01] MEDS: CRESTOR 20 MG PO (22:01)
[2024-02-01] MEDS: MYLICON 80 MG PO (22:38)
[2024-02-01 23:19] VITALS: BP 108/62
[2024-02-02 06:00] VITALS: BMI 37.5
[2024-02-02 07:38] VITALS: BP 105/63
[2024-02-02 07:54] LABS: Blood Urea Nitrogen 15 mg/dl (7-17); Calcium 8.8 mg/dl (8.4-10.2); Carbon Dioxide 22 mmol/L (22-30); Chloride 101 mmol/L (98-107); Estimated Creatinine Clearance 74 ml/min; Glucose 98 mg/dl (70-99); Potassium 5.8 mmol/L (3.5-5.1); Sodium 134 mmol/L (135-145); eGFR > 60.00
[2024-02-02] MEDS: ADVAIR HFA 115/21 MCG INHALER INH ×2 (08:07→20:09)
--- NOTE | 2024-02-02 09:00 | W.PN.HOSP.TC ---
Today's Communication/Plan
-
Discharge tomorrow
Assessment / Plan
Assessment / Plan
#Stercoral colitis
#Abdominal pain
#Acute on chronic constipation
-CT A/P here showed moderate rectal distention with stool and anal wall thickening consistent with stercoral colitis
-Improving on increased laxatives
-She will need to continue her aggressive bowel regimen upon discharge
-She is immobile/wheelchair-bound, and is high risk for chronic constipation
#Suspected UTI
-States she has had dysuria, also here with constipation
-No leukocytosis or fevers at this time
-Although urine cultures negative, will continue IV Rocephin in the hospital, Abd CT shows poss cystitis
-Plan to change to oral antibiotics upon discharge to complete a 7-day course
#Acute URI
Complains of nasal congestion, ear fullness, decreased hearing
Declines antihistamine
Continue supportive care
#Hyperkalemia
EKG without changes
Hold spironolactone, hold potassium supplements
Monitor
#HFmrEF
-Most recent echo showed LVEF 45%
-Medications include SGLT2, Aldactone, Lasix
-Seems euvolemic as of now
#Permanent atrial fibrillation
-Continue Eliquis
#Chronic hypotension
-Stable on midodrine regimen
#Chronic hypoxemic respiratory failure
#Obstructive sleep apnea
#Allergic asthma
-Home medications include inhaler regimen, montelukast
-Currently uses 2 L of oxygen at baseline
-Stable
#GERD
#H/O esophagitis
-Medications include PPI and sucralfate
-Stable as of now
#Dyslipidemia
-Home regimen includes statin
#Chronic ambulatory dysfunction�wheelchair-bound
#Chronic low back pain
-Remains on home gabapentin regimen
#H/O breast cancer
#Obesity
DVT prophylaxis�Eliquis
Full code
Total time spent to see the patient on the floor, examine the patient, review data and lab results, discuss treatment plan with patient, nursing staff around 51 minutes.
Physical Exam
General: Morbidly obese, no acute distress
HEENT: Normocephalic, Atraumatic, EOMI, MMM
Right ear with fluid behind tympanic membrane
Respiratory: Diminished breath sounds at the bases
Cardiac: Normal S1/S2, Regular Rate and Rhythm
GI: Soft, Nontender, Nondistended, Normal Bowel Sounds
Extremities: No Clubbing, Cyanosis, or Edema
Musculoskeletal: Atrophy of bilateral lower extremity muscles noted
Neuro: Nonfocal/Grossly Intact
Psych: Calm, Cooperative
Anticipated Discharge: Within 24 hours
Subjective/Interval History
-
Date of Service: February 02, 2024
Abdominal pain resolved. Reports feeling fullness in her ear with decreased hearing. No fever, no vomiting.
Objective Data
-
Labs:
Laboratory Results
02/02/24
07:08
Sodium 134 L
Potassium 5.8 H D
Chloride 101
Carbon Dioxide 22
BUN 15
Creatinine 0.9
Glucose 98
Calcium 8.8
Vital Signs:
Vital Signs
Temp Pulse Resp BP Pulse Ox
97.6 F 78 20 105/63 95
02/02/24 07:38 02/02/24 07:38 02/02/24 07:38 02/02/24 07:38 02/02/24 07:38
I&O
02/01/24 02/02/24 02/03/24
06:59 06:59 06:59
Intake Total 1200 / 1200 1440 / 1440
Balance 1200 / 1200 1440 / 1440
[2024-02-02] MEDS: ALDACTONE PO (09:31)
[2024-02-02] MEDS: LASIX 80 MG PO ×2 (09:32→21:56)
[2024-02-02] MEDS: ProAmatine 10 MG PO ×2 (09:33→21:57)
[2024-02-02] MEDS: PROTONIX 40 MG PO ×2 (09:33→21:57)
[2024-02-02] MEDS: SENOKOT-S 2 TABLET PO ×2 (09:34→21:56)
[2024-02-02] MEDS: KCL PO (09:34)
[2024-02-02] MEDS: MIRALAX 17 GRAMS PO ×2 (09:34→21:58)
[2024-02-02] MEDS: CARAFATE 1 GRAM PO ×2 (09:35→21:56)
[2024-02-02] MEDS: REFRESH EYE DROPS (PF) 2 DROPS BOTH EYES ×3 (09:35→21:57)
[2024-02-02] MEDS: THERAGRAN 1 TABLET PO (09:35)
[2024-02-02] MEDS: FARXIGA 10 MG PO (09:36)
[2024-02-02] MEDS: ELIQUIS 5 MG PO ×2 (09:36→21:57)
[2024-02-02] MEDS: ROCEPHIN 1000 MG IV (09:49)
[2024-02-02] MEDS: STERILE WATER FOR INJECTION 10 ML IV (09:49)
--- NOTE | 2024-02-02 10:09 | PTCARENOTE ---
Morning K resulted 5.8. EKG obtained. Potassium Chloride 40meq PO TID and Spironolactone 25mg PO daily held. Potassium redrawn by phlebotomy.
[2024-02-02 11:09] LABS: Potassium 5.3 mmol/L (3.5-5.1)
[2024-02-02 11:30] VITALS: BP 105/63; PULSE 78; O2SAT 96
[2024-02-02] MEDS: PREPARATION H MAX STRENGTH PAIN RELIEF CREAM 1 APPLIC RECTAL (12:48)
--- NOTE | 2024-02-02 14:24 | CM ---
CM reviewed chart, met with patient. CM reports she is feeling better today, hopeful to discharge back to [facility] tomorrow. CM will continue to follow for all discharge planning needs.
Plan; [facility], will require ambulance transport.
[2024-02-02 15:32] VITALS: BP 100/66
--- NOTE | 2024-02-02 15:50 | CM ---
Patient for d/c back to [facility] tomorrow.
Alicia updated.
PT/OT recommending skilled rehab.
No auth needed.
Plan: [facility] tomorrow.
[facility]
Report #[phone]
[2024-02-02] MEDS: DUPHALAC/CHRONULAC 20 GRAMS PO (16:53)
[2024-02-02] MEDS: ZYRTEC 10 MG PO (21:56)
[2024-02-02] MEDS: CRESTOR 20 MG PO (21:56)
[2024-02-02] MEDS: SINGULAIR 10 MG PO (21:57)
[2024-02-02] MEDS: MUCINEX 600 MG PO (21:57)
[2024-02-02] MEDS: NEURONTIN 300 MG PO (21:57)
[2024-02-02 23:20] VITALS: BP 96/61
[2024-02-03 06:00] VITALS: BMI 37.7
[2024-02-03 07:10] VITALS: BP 147/82
[2024-02-03] MEDS: ADVAIR HFA 115/21 MCG INHALER INH (07:35)
--- NOTE | 2024-02-03 08:43 | W.PN.HOSP.TC ---
Today's Communication/Plan
-
Discharge today
Assessment / Plan
Assessment / Plan
#Stercoral colitis
#Abdominal pain
#Acute on chronic constipation
-CT A/P here showed moderate rectal distention with stool and anal wall thickening consistent with stercoral colitis
-Improving on increased laxatives
-She will need to continue her aggressive bowel regimen upon discharge
-She is immobile/wheelchair-bound, and is high risk for chronic constipation
-Medically stable for discharge to her residential today
#Suspected UTI
-States she has had dysuria, also here with constipation
-No leukocytosis or fevers at this time
-Although urine cultures negative, will continue IV Rocephin in the hospital, Abd CT shows poss cystitis
-Discharge on cefdinir to complete a 7-day course
#Acute URI
Complains of nasal congestion, ear fullness, decreased hearing
Declines antihistamine
Continue supportive care
#Hyperkalemia
EKG without changes
Resolved, resume potassium supplements, spironolactone
Patient is on Lasix 80 mg twice a day, and has a history of severe hypokalemia if she does not take her supplements
Monitor
#HFmrEF
-Most recent echo showed LVEF 45%
-Medications include SGLT2, Aldactone, Lasix
-Seems euvolemic as of now
#Permanent atrial fibrillation
-Continue Eliquis
#Chronic hypotension
-Stable on midodrine regimen
#Chronic hypoxemic respiratory failure
#Obstructive sleep apnea
#Allergic asthma
-Home medications include inhaler regimen, montelukast
-Currently uses 2 L of oxygen at baseline
-Stable
#GERD
#H/O esophagitis
-Medications include PPI and sucralfate
-Stable as of now
#Dyslipidemia
-Home regimen includes statin
#Chronic ambulatory dysfunction�wheelchair-bound
#Chronic low back pain
-Remains on home gabapentin regimen
#H/O breast cancer
#Obesity
DVT prophylaxis�Eliquis
Full code
Physical Exam
General: Morbidly obese, no acute distress
HEENT: Normocephalic, Atraumatic, EOMI, MMM
Right ear with fluid behind tympanic membrane
Respiratory: Diminished breath sounds at the bases
Cardiac: Normal S1/S2, Regular Rate and Rhythm
GI: Soft, Nontender, Nondistended, Normal Bowel Sounds
Extremities: No Clubbing, Cyanosis, or Edema
Musculoskeletal: Atrophy of bilateral lower extremity muscles noted
Neuro: Nonfocal/Grossly Intact
Psych: Calm, Cooperative
Anticipated Discharge: Today
Subjective/Interval History
-
Date of Service: February 03, 2024
Abdominal pain resolved. Continues to feel fullness in her right ear, with decreased hearing. No fever, no vomiting.
Objective Data
-
Vital Signs:
Vital Signs
Temp Pulse Resp BP Pulse Ox
97.5 F 66 20 147/82 95
02/03/24 07:10 02/03/24 07:10 02/03/24 07:10 02/03/24 07:10 02/03/24 07:10
I&O
02/02/24 02/03/24 02/04/24
06:59 06:59 06:59
Intake Total 1440 / 1440 840 / 840
Balance 1440 / 1440 840 / 840
[2024-02-03] MEDS: SENOKOT-S 2 TABLET PO (10:04)
[2024-02-03] MEDS: FARXIGA 10 MG PO (10:05)
[2024-02-03] MEDS: LASIX 80 MG PO (10:05)
[2024-02-03] MEDS: CARAFATE 1 GRAM PO (10:05)
[2024-02-03] MEDS: ELIQUIS 5 MG PO (10:05)
[2024-02-03] MEDS: ProAmatine 10 MG PO (10:06)
[2024-02-03] MEDS: PROTONIX 40 MG PO (10:07)
[2024-02-03] MEDS: THERAGRAN 1 TABLET PO (10:07)
[2024-02-03] MEDS: MIRALAX 17 GRAMS PO (10:07)
[2024-02-03] MEDS: REFRESH EYE DROPS (PF) 2 DROPS BOTH EYES ×2 (10:07→16:09)
[2024-02-03] MEDS: ROCEPHIN 1000 MG IV (10:10)
[2024-02-03] MEDS: STERILE WATER FOR INJECTION 10 ML IV (10:11)
[2024-02-03 10:52] LABS: Blood Urea Nitrogen 15 mg/dl (7-17); Calcium 8.3 mg/dl (8.4-10.2); Carbon Dioxide 25 mmol/L (22-30); Chloride 97 mmol/L (98-107); Estimated Creatinine Clearance 95 ml/min; Glucose 105 mg/dl (70-99); Potassium 3.7 mmol/L (3.5-5.1); Sodium 134 mmol/L (135-145); eGFR > 60.00
--- NOTE | 2024-02-03 11:45 | W.DCSUMMARY ---
Discharge Summary
Discharge Data
Date of Admission: 01/29/24
Date of Discharge: 02/03/24
-
Pending Results: No
Hospital Course
Discharge diagnosis:
Stercoral colitis
Acute on chronic constipation
Abdominal pain
Probable urinary tract infection
Acute upper respiratory infection
Hyperkalemia
Heart failure with moderately reduced ejection fraction
Permanent atrial fibrillation on eliquis
Obesity due to excess calories
Chronic hypotension on midodrine
Chronic hyponatremia
Obstructive sleep apnea
Chronic hypoxic respiratory failure on 2 L at baseline
Esophagitis
Gastroesophageal reflux disease
Wheelchair-bound status
CT abdomen and pelvis:
Stranding of the fat surrounding the urinary bladder, and suggests the possibility of cystitis. Please correlate clinically.
Moderate distention of the rectum with stool. Subtle mild stranding in the perirectal fat, and findings suggest minimal stercoral colitis. Mild thickening of the anal wall, nonspecific.
Trace amount of pleural fluid within the posterior lower chest bilaterally. Mild peripheral increased interstitial markings, likely mild interstitial fibrosis.
Enlarged heart.
Fat-containing umbilical and periumbilical hernias, with no evidence for inflammation/edema.
Fatty infiltration of the liver.
Hospital course:
69-year-old female with a past medical history of ambulatory dysfunction/wheelchair-bound status, obesity, CHF, atrial fibrillation, and chronic hypoxic respiratory failure on 2 L at baseline was admitted for abdominal pain secondary to acute on
chronic constipation and stercoral colitis. Patient was treated with an aggressive bowel regimen. She had multiple bowel movements daily throughout her stay. Her abdominal pain resolved. Patient is wheelchair-bound, and has chronic constipation
due to her immobility. She needs to receive MiraLAX twice a day, senna S2 tablets twice a day, and lactulose every afternoon upon discharge.
Patient also had transient hyperkalemia. She usually is hypokalemic, and is on potassium supplements. Her potassium supplements were held, her hyperkalemia resolved. Her potassium supplements were resumed since she is on Lasix 80 mg twice a day.
Patient also complained of dysuria. CT of the abdomen and pelvis shows the possibility of cystitis. Urine cultures were negative. She was treated with IV Rocephin, will be discharged on cefdinir to complete a 7-day course due to her complaints of
dysuria.
Patient also complained of nasal congestion, and right ear fullness with decreased hearing. Suspect she has an upper respiratory infection. She has fluid behind her right tympanic membrane. Counseled her that this should improve with time.
Patient is medically stable for discharge. She needs to continue the aggressive bowel regimen as prescribed. She needs to follow-up with her primary care doctor in 1 week.
Disposition: [facility]
Discharge planning: Required 48 minutes
Discharge Plan
-
Patient Disposition: Penitentiary/SNF
Discharge Diagnosis/Procedures: Acute on chronic constipation with stercoral colitis, urinary tract infection, upper respiratory tract infection, decreased hearing in the right ear due to fluid, hyperkalemia, permanent atrial fibrillation on Eliquis
Condition: Fair
Diet: Low Sodium and Restrict fluids to 48 oz
Activity: As tolerated
Driving Restrictions: No driving
Blood Work: BMP on 02/07/24
Activity Restrictions/Additional Instructions:
Continue taking cefdinir for 2 more days.
You have chronic constipation due to limited mobility.
It is very important you take your laxatives as scheduled.
Referrals:
Miguel Evans MD [Family Provider] - in one week
Prescriptions:
New
polyethylene glycol 3350 [HealthyLax] 17 gram Powder In Packet
17 g PO BID Qty: 0 0RF
sennosides-docusate sodium 8.6-50 mg Tablet
2 tab PO BID Qty: 0 0RF
lactulose 20 gram/30 mL Solution
20 g PO DAILY@1600 Qty: 0 0RF
cefdinir 300 mg capsule
300 mg PO BID 2 Days Qty: 4 0RF
Continued
montelukast 10 mg Tablet
10 mg PO HS
Eliquis 5 mg Tablet
5 mg PO BID Qty: 60 0RF
rosuvastatin 20 mg Tablet
20 mg PO HS
fluticasone propion-salmeterol [Wixela Inhub] 250-50 mcg/dose Blister With Device
2 inh INHALATION R BID
therapeutic multivitamin Tablet
1 tab PO DAILY Qty: 0
midodrine 10 mg tablet
10 mg PO BID
spironolactone [Aldactone] 25 mg tablet
25 mg PO DAILY
dapagliflozin propanediol 10 mg Tablet
10 mg PO DAILY Qty: 0 0RF
acetaminophen 325 mg Tablet
650 mg PO Q4HPRN MDD 3000 mg PRN (Reason: mild pain/BURROWS/temp>100.5) Qty: 0 0RF
gabapentin 300 mg Capsule
300 mg PO HS Qty: 0 0RF
guaifenesin 200 mg Tablet
600 mg PO HS
magnesium hydroxide [Milk of Magnesia] 400 mg/5 mL Suspension
30 ml PO [id number] PRN (Reason: no bm 3 days)
bisacodyl [Dulcolax (bisacodyl)] 10 mg Suppository
10 mg AK DAILYPRN PRN (Reason: mom ineffective)
Fleet Enema 19-7 gram/118 mL Enema
118 ml AK DAILYPRN PRN (Reason: if dulcolax ineffective)
docusate sodium 100 mg Capsule
100 mg PO BIDPRN PRN (Reason: constipation)
fluticasone propionate 50 mcg/actuation [place],Suspension
1 spray INTRANASAL DAILY
Artificial Tears (PF) Dropperette
2 drp BOTH EYES TID
Zyrtec 10 mg Capsule
10 mg PO HS
sucralfate 1 gram tablet
1 g PO BID
furosemide [Lasix] 80 mg tablet
80 mg PO BID
potassium chloride 20 mEq tablet extended release
40 meq PO TID
pantoprazole 40 mg Tablet,Delayed Release (Dr/Ec)
40 mg PO BID Qty: 60 0RF
Discharge Orders:
Discharge Patient (As Directed); Ordered 02/03/24
Ordered By: Grady Hawthorne
Discharge Date and Time
Discharge Date/Time: 02/03/24 17:18
Print Language: TURKMEN
--- NOTE | 2024-02-03 12:21 | CM ---
Addendum entered by Gerri Johnson 02/03/24 15:55:
Contacted daughter via phone to inform her of mother's discharge plan
Addendum entered by Gerri Johnson 02/03/24 15:50:
Per Attending; Patient will discharge as planned to [facility] today
Addendum entered by Gerri Johnson 02/03/24 14:40:
X-ray ordered; pending outcome will proceed with discharge to [facility]
Ambulance delivery driver/supervisor scheduled for 1630
Original Note:
Plan: return to [facility] today via ambulance
[facility] liaison notified via phone; the facility can accept today
Report #[phone]
[2024-02-03] MEDS: KCL 40 MEQ PO ×2 (13:34→16:09)
[2024-02-03 15:15] VITALS: BP 103/66
[2024-02-03] MEDS: DUPHALAC/CHRONULAC 20 GRAMS PO (16:09)
== END 2024-02-03 17:18 | DRG 392 ==
LOC: 4 WEST ACU 07:33
PROVIDERS: Internal Medicine; Physician Assistant; ADMITTING PHYSICIAN Hospitalist; ATTENDING PHYSICIAN Family Medicine; EMERGENCY PHYSICIAN Emergency Medicine; FAMILY PHYSICIAN Internal Medicine
DX: K52.89 Other specified noninfective gastroenteritis and colitis (principal); I48.21 Permanent atrial fibrillation; E87.1 Hypo-osmolality and hyponatremia; I50.22 Chronic systolic (congestive) heart failure; J96.11 Chronic respiratory failure with hypoxia; N39.0 Urinary tract infection, site not specified; K59.09 Other constipation; I95.89 Other hypotension; G47.33 Obstructive sleep apnea (adult) (pediatric); J45.909 Unspecified asthma, uncomplicated; E78.00 Pure hypercholesterolemia, unspecified; K21.9 Gastro-esophageal reflux disease without esophagitis; G89.29 Other chronic pain; M54.50 Low back pain, unspecified; J06.9 Acute upper respiratory infection, unspecified; E87.5 Hyperkalemia; R26.89 Other abnormalities of gait and mobility; M62.562 Muscle wasting and atrophy, not elsewhere classified, left lower leg; M62.561 Muscle wasting and atrophy, not elsewhere classified, right lower leg; F41.9 Anxiety disorder, unspecified; E66.09 Other obesity due to excess calories; Z68.37 Body mass index [BMI] 37.0-37.9, adult; Z99.3 Dependence on wheelchair; Z98.84 Bariatric surgery status; Z95.0 Presence of cardiac pacemaker; Z87.891 Personal history of nicotine dependence; Z86.73 Personal history of transient ischemic attack (TIA), and cerebral infarction without residual deficits; Z99.81 Dependence on supplemental oxygen; Z88.5 Allergy status to narcotic agent; Z79.01 Long term (current) use of anticoagulants; Z79.84 Long term (current) use of oral hypoglycemic drugs; Z79.899 Other long term (current) drug therapy; Z85.3 Personal history of malignant neoplasm of breast
CPT/HCPCS: 74018; 74177; 80048; 80053; 81003; 81015; 83605; 83690; 84132; 85025; 87086; 93005; 94640; 96372; 96374; 97163; 97166; 99285; Q9967

== ENCOUNTER 2024-03-08 11:30 | Inpatient (IN) | payer MEDICARE, OTHER, SELFPAY ==
[2024-03-01] VITALS (7 sets, daily range): BP systolic 89–123; BP diastolic 63–83; BMI 38.8; BMI 36.9
[2024-03-01 14:32] LABS: % Basophils 1.6 % (0-2); % Eosinophils 1.3 % (0-6); % Immature Granulocytes 0.3 % (0-0.5); % Lymphocytes 16.9 % (20.5-51.1); % Monocytes 8.7 % (1.7-9.3); % Neutrophils 71.2 % (42.2-75.2); Absolute Basophils 0.1 10^3/uL (0-0.2); Absolute Eosinophils 0.1 10^3/uL (0-0.7); Absolute Lymphocytes 1.1 10^3/uL (1.2-3.4); Absolute Monocytes 0.6 10^3/uL (0.1-0.6); Absolute Neutrophils 4.5 10^3/uL (1.4-6.5); Hematocrit 37.6 % (37.0-47.0); Hemoglobin 11.9 g/dL (12.0-16.0); Mean Corp Hgb Conc. 31.6 g/dL (33.0-37.0); Mean Corpuscular Hgb 26.9 pg (27.0-31.0); Mean Corpuscular Volume 84.9 fL (81.0-99.0); Mean Platelet Volume 9.5 fL (7.4-10.4); Nucleated Red Blood Cells % 0.6 %; Platelet Count 365 10^3/uL (130-400); Red Blood Cell Count 4.43 10^6/uL (4.20-5.40); Red Cell Dist. Width 20.2 % (11.5-14.5); White Blood Cell Count 6.3 10^3/uL (4.8-10.8)
[2024-03-01 14:59] LABS: Blood Urea Nitrogen 19 mg/dl (7-17); Calcium 8.7 mg/dl (8.4-10.2); Carbon Dioxide 23 mmol/L (22-30); Chloride 101 mmol/L (98-107); Estimated Creatinine Clearance 73 ml/min; Glucose 139 mg/dl (70-99); Sodium 137 mmol/L (135-145); eGFR > 60.00
[2024-03-01 15:07] LABS: Urine Albumin Trace (Neg - Trace); Urine Bilirubin Negative (Negative); Urine Character Clear (Clear); Urine Color Yellow; Urine Glucose 3+ (Negative); Urine Ketone Negative (Negative); Urine Leukocyte Negative (Negative); Urine Nitrite Negative (Negative); Urine Occult Blood Negative (Negative); Urine Specific Gravity 1.015 (<1.030); Urine Urobilinogen Negative (Neg - 1+)
--- NOTE | 2024-03-01 15:17 | ED.GENMED ---
History of Present Illness
General
Chief Complaint: Abdominal Pain
Source: patient
Exam Limitations: none
Time Seen by Provider: 03/01/24 14:55
Nursing documentation reviewed up to this point in time: agreed with
History of Present Illness
History of Present Illness:
69 y/o F with h/o afib on eqliuis, mitral stenosis, chf on lasix, cushings
here with 3 days of feeling lower abd brigitte and constipation
she said she was unable ot have BM until today when the IN gave her an enema which helped her go a little. She still feels some pain in her right lower quadrant as well as her rectum. She is not having any fever, chills, nausea vomiting or
diarrhea. Patient chronically is on midodrine twice daily for hypotension. 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 She does take steroids chronically
And she is supposedly supposed to have a mitral valve replacement
pt does have some lower abd pain but no dysuria, hematuria, fever, chills
pt was hospitalized with stercoral colitis 1 mo ago
treated with miralaxi bid, senna bid and lactulose
constipation resolved, pain resolved
she also has chronic hyoxic resp failure on 2L
on lasix bid
during hospitalization she also c/o dysuria and had ct showing possibility of cystitis and was given rocephin and 7 days course of cefdinir
her urine culture was neg
Past History
Past History
ED Past Medical History: Arrthythmia (Atrial fib), Asthma, Cancer (breast, Skin), CHF, CVA (TIA), GERD, HTN, Hypercholesterolemia, Psychiatric (Anxiety, PTSD), Other (RAMY, PNA, Sleep apnea, Various Vein, Peptic ulcer) and Other (mvp)
ED Past Surgical History: Cardiac (pacemaker, Ablation), Cholecystectomy, , Tonsilectomy and Other ( Left breast lumpectomy with aixllary lymph nodes, Hernia, Gastric bypass)
Social History
Tobacco: Former smoker
Alcohol: None
Drug: None
Personal: Single ('pham')
Living: alone
Employment: Not employed
Review of Systems
Review of Systems
Allergies reviewed?: Yes
All Other Systems: Not applicable
Phy Exam
Physical Exam
Physical Exam:
GENERAL: Alert , in no apparent distress appears generally ill but nontoxic
EYE: pupils equal and reactive
NECK: Supple
ENT: o/p clr, mmm.
CARDIAC: Regular rate and rhythm . Appreciate murmur
resp: no acute respiratory distress, no wheezes/rales/rhonchi no tachypnea
ABDOMEN: Soft, mild right lower quadrant tenderness, no r/g, no cvat, normal bowel sounds
Rectal no fecal impaction
NEUROLOGICAL: Alert and oriented, no focal neuro deficits
SKIN: Warm and dry, skin intact.
MUSCULOSKELETAL: Mild edema, well perfused.
PSYCH: Normal and appropriate interaction.
Course
Orders/Labs/Results
Orders:
Orders
03/01/24 14:03
Electrocardiogram (*1) Urgent
Reason for Study: Abdominal Pain
EKG- Treatment ONCE
03/01/24 14:24
Basic Metabolic Panel Urgent
Complete Blood Count/With Diff Urgent
03/01/24 14:51
Urinalysis Reflex To Culture Urgent
Date Specimen was Collected: 03/01/24
Time Specimen was Collected: 14:50
03/01/24 15:15
CT Abd/Pel (IV only)-DH only Urgent
Comment:
Reason For Exam: lower abd pain, constipation, h/o stercoral coliti
0.9% Sodium Chloride 250 ml [Nss] 250 ml IV BOLUS
03/01/24 15:29
Comprehensive Metabolic Panel Urgent
03/01/24 17:40
CR Chest - 2 Views Urgent
Comment:
Reason For Exam: chf
03/01/24 17:50
NT-proBNP Urgent
03/01/24 19:06
Furosemide [Lasix] 40 mg IV NOW STA
Midodrine [ProAmatine] 10 mg PO NOW STA
03/01/24 20:29
Admit/Transfer Patient As Directed
Co-Sign Provider:
Level of Care: Observation services
Assign to:: Telemetry
Physician / Group: Tommy
Diagnosis: Constipation/ Chronic CHF
Reason for Telemetry: Arrhythmia
Date to Stop Telemetry: 03/04/24
Time to Stop Telemetry: 11:00
03/01/24 20:30
PRN Pain Medication Management As Directed
May give lesser potent ordered pain med per pt: Yes
preference::
Protocol:: Medication orders for pain may be administered in a
manner that supports deferring to patient preference
when the pt is:
- Requesting an ordered lesser potent pain medication.
Least to most potent pain medications are defined
as: acetaminophen < NSAID < tramadol < opioids
(morphine, oxycodone, hydromorphone).
- Requesting a lesser dose of the same medication IF
ORDERED.
- Requesting a less intrusive route of administration
if both routes are prescribed by the provider (PO <
IV).
03/01/24 20:33
Code Status As Directed
Resuscitation Status: Do not resuscitate
Reached after discussion with pt or family/Healthcare POA: Yes
DNR Bracelet Application ONCE
03/01/24 22:00
Flush (0.9% Sodium Chloride) [Flush (Nss)] See Dose Instructions IV PER PROTOCOL
03/04/24 11:00
DC Protocol for Telemetry ONCE
Abnormal Lab Results
03/01/24 03/01/24 03/01/24
14:24 14:51 15:29
Hgb 11.9 L g/dL
(12.0-16.0)
MCH 26.9 L pg
(27.0-31.0)
MCHC 31.6 L g/dL
(33.0-37.0)
RDW 20.2 H %
(11.5-14.5)
Absolute Lymphs (auto) 1.1 L 10^3/uL
(1.2-3.4)
Lymphocytes % 16.9 L %
(20.5-51.1)
BUN 19 H mg/dl 20 H mg/dl
(7-17) (7-17)
Glucose 139 H mg/dl 118 H mg/dl
(70-99) (70-99)
Total Bilirubin 2.0 H mg/dl
(0.2-1.3)
Alkaline Phosphatase 151 H U/L
(38-126)
Albumin 2.9 L g/dl
(3.5-5.0)
Urine Glucose 3+ A
(Negative)
03/01/24 14:24
03/01/24 15:29
Vital Signs
Initial and Last Documented VS:
Initial Vital Signs
Temp Pulse Resp BP Pulse Ox
97.7 F 71 19 100/81 95
03/01/24 14:06 03/01/24 14:06 03/01/24 14:06 03/01/24 14:06 03/01/24 14:06
Last Documented Vital Signs
Temp Pulse Resp BP Pulse Ox
97.7 F 74 8 100/83 92
03/01/24 14:06 03/01/24 22:08 03/01/24 22:08 03/01/24 22:08 03/01/24 22:08
MDM/Problems Addressed
Differential Diagnosis Includes:
Stercoral colitis, fecal impaction, constipation, diverticulitis, UTI
MDM/Problems Addressed:
69 y/o F with h/o chf, mitral stenosis, afib on eliquis, cushings
here with abd pain and constipation; h/o admission last month for stercoral colitis; today had enema by facility and had small bm but still had pain so they sent her
she chronically has hypotnesion, is on midodrine and wears o2
abd tender RLQ; rectal no impaction; wbc normal
ct showed mild stool burden, no rectal impaction/dilation
mild cystitis but ua neg
but she does have evidence of worsening chronic pulm edema on chest x-ray which was independently reviewed by me, was mild now moderate with bnp 7000; she has been higher and lower; she feels fatigued and weak and her BP is soft 90s; concerned about
diuresing her and sending her with that low blood pressure; with the worsening pulm edema admit to carefully diurese
*Critical Care Note
Total Time (30-74mins, 75-104mins- exclusive of procedures): Not Applicable
ED Attending Note
-
Portions of this chart may have been created with voice recognition software.� Occasional wrong word or��sound alike� substitutions may have occurred due to the inherent limitations of voice recognition software.
Discharge Plan
Departure
Patient Disposition: Admit
Date of Disposition: 03/01/24
Time of Disposition: 19:05
Admit to: Telemetry
Presentation/result/management discussed w/ accepting MD/DO: Hospitalist
Condition: Fair
Covid-19: Not Applicable
Discharge Problem:
Abdominal pain, CHF (congestive heart failure), Hypotension
Interventions
Interventions:
*Risk Screen - Suicide Last Done: 03/01/24 14:06
*General Assessment Last Done: 03/01/24 14:06
*Neglect/Abuse Screening Last Done: 03/01/24 14:06
*ED COVID-19 Vaccine History Last Done: 03/01/24 14:21
WK-Lclnqh-Plsxqhxihi Assessment Last Done: 03/01/24 14:22
[2024-03-01] MEDS: NSS 250 IV (15:46)
[2024-03-01 16:02] LABS: ALT (SGPT) 18 U/L (0-35); AST (SGOT) 32 U/L (14-36); Albumin 2.9 g/dl (3.5-5.0); Alkaline Phosphatase 151 U/L (38-126); Blood Urea Nitrogen 20 mg/dl (7-17); Calcium 8.7 mg/dl (8.4-10.2); Carbon Dioxide 24 mmol/L (22-30); Chloride 101 mmol/L (98-107); Estimated Creatinine Clearance 82 ml/min; Glucose 118 mg/dl (70-99); Potassium 3.8 mmol/L (3.5-5.1); Sodium 137 mmol/L (135-145); Total Protein 6.9 g/dl (6.3-8.2); eGFR > 60.00
[2024-03-01 18:29] LABS: NT-proBNP 7510 pg/ml
--- NOTE | 2024-03-01 19:49 | HPS.HSE ---
Addendum entered and electronically signed by Jeff Sanders DO 03/01/24 21:09:
Patient seen and examined. Agree with findings and plan as set forth by Dory Rosales PA-C.
Patient is a 69y F with PMH significant for A-Fib, CHF and chronic hypoxemia who presents to ED complaining of rectal discomfort / constipation. Patient was recently hospitalized for stercoral colitis and discharged to SNF on bowel regimen.
Today, patient had the sensation that there was 'something stuck in my rectum'. She was sent to the ED for evaluation. Imaging was done in the ED showing no fecal impaction, stercoral colitis or significant stool burden. Patient repeatedly states
that she 'just doesn't feel well'. From my discussions it seems that she is unhappy with her situation at [facility].
Patient has no chest pain, dyspnea, cough, fevers / chills, etc.
She is unable to further elaborate on how she 'does not feel well'.
Ass:
Chronic Constipation
Chronic HFpEF
Chronic Hypoxemic Respiratory Failure
Permanent Atrial Fibrillation
Chronic Hypotension
Asthma without Acute Exacerbation
GERD / PUD
Plan:
Observe overnight.
Single dose of IV Lasix given in the ED - resume usual / typical diuretic regimen.
Continue / maximize bowel regimen and follow stool frequency.
No evidence of significant stool burden / stercoral colitis / etc on CT scan.
Continue other usual medications.
Case Management evaluation for discharge plan.
Original Note:
Family Physician
-
Family Physician: Miguel Evans
Chief Complaint
-
Abdominal Pain
History of Present Illness
Patient is a 69 y/o female with an extensive past medical history including A-Fib, CHF, Chronic Hypoxia, and recent admission for stercoral colitis who presents with abdominal/rectal pain. Patient received an enema at the facility today with
positive results. At presents time denies abdominal pain, but is still complaining of rectal pain. She reports known hemorrhoids which are also noted on prior colonoscopy from October 2023. Abd/Pelvis CT scan shows mild colonic stool burden, but no
rectal stool. CT scan also showed evidence of mild pulmonary edema. Patient denies any increased shortness of breath from baseline, and denies lower extremity edema. Review of records indicate weight is stable from discharge one month ago.
Medical History
Past Medical History
Past Medical History: Reports Other
Additional Past Medical History:
Permanent Atrial Fibrillation
Chronic HFpEF
Hypertension.
Nonrheumatic mitral valve stenosis.
Dyslipidemia.
1st Degree AV block.
ASCVD / CVA, 1988, without residual deficits.
Allergic Asthma.
Obstructive sleep apnea, non-compliant with CPAP.
GERD / Peptic Ulcer Disease.
Colon polyps.
Nephrolithiasis.
Ambulatory dysfunction.
Left breast cancer, 2010, status post left lumpectomy and axillary node dissection, chemotherapy, and radiation.
Skin cancer, status post multiple excisions.
Anxiety / Depression / PTSD
Morbid obesity, status post gastric banding
Past Surgical History: Reports Other
Additional Past Surgical History:
Atrial fibrillation ablation x2
Cardioversion x2
Cardiac catheterization
Gastric banding
.
Cholecystectomy.
Hernia repair.
Left breast lumpectomy and axillary lymph node dissection.
Tonsillectomy
Social History
Tobacco: Former Smoker (She is a former 1 pack per day cigarette smoker who quit tobacco products altogether in her late 20's. )
Alcohol: None
Drug: None
Family History
Family History: Not pertinent
Allergies / Home Medications
Allergies reflects when Allergies were last updated in [facility].
Home Medications with original date entered in [facility]
Allergy/Medication List:
Allergies
Allergy/AdvReac Type Severity Reaction Status Date / Time
codeine Allergy 'loopy' Verified 03/01/24 14:01
Home Medications
montelukast 10 mg tablet 10 mg PO HS Lung/breathing issues 06/23/22
fluticasone 250 mcg-salmeterol 50 mcg/dose blistr powdr for inhalation (Wixela Inhub) 2 inh inhalation R BID Lung/Breathing Issues 02/22/23
therapeutic multivitamin 1 tab PO DAILY Supplement ##0 04/16/23
midodrine 10 mg tablet 10 mg PO BID Blood Pressure 10/12/23
spironolactone 25 mg tablet (Aldactone) 25 mg PO DAILY Heart Failure 10/12/23
bisacodyl 10 mg rectal suppository (Dulcolax (bisacodyl)) 10 mg UT DAILYPRN PRN mom ineffective 12/31/23
dextran 70-hypromellose eye drops in a dropperette (Artificial Tears (PF) drops in a dropperette) 2 drp BOTH EYES TID Eye Condition 12/31/23
docusate sodium 100 mg capsule 100 mg PO BIDPRN PRN constipation 12/31/23
fluticasone propionate 50 mcg/actuation nasal spray,suspension 1 spray intranasal BID Allergies 12/31/23
furosemide 80 mg tablet (Lasix) 80 mg PO BID Fluid retention/Swelling 12/31/23
guaifenesin 200 mg tablet 600 mg PO HS Cough 12/31/23
magnesium hydroxide 400 mg/5 mL oral suspension (Milk of Magnesia) 30 ml PO [id number] PRN no bm 3 days 12/31/23
potassium chloride 20 mEq tablet,extended release 40 meq PO TID Electrolyte Repletion 12/31/23
sodium phosphates 19 gram-7 gram/118 mL enema (Fleet Enema) 118 ml UT DAILYPRN PRN if dulcolax ineffective 12/31/23
sucralfate 1 gram tablet 1 g PO BID Gastrointestinal Issue 12/31/23
acetaminophen 325 mg tablet 650 mg PO Q6HPRN PRN mild pain/BURROWS/temp>100.5 03/01/24
apixaban 5 mg tablet (Eliquis) 5 mg PO BID Blood Clot Prevention/Tx 03/01/24
atorvastatin 40 mg tablet (Lipitor) 40 mg PO QPM High Cholesterol 03/01/24
cetirizine 10 mg tablet 10 mg PO HS Allergies 03/01/24
dapagliflozin propanediol 10 mg tablet 10 mg PO DAILY heart failure 03/01/24
gabapentin 300 mg capsule 300 mg PO HS pain 03/01/24
lactulose 20 gram/30 mL oral solution 20 g PO DAILY constipation 03/01/24
menthol 0.44 %-zinc oxide 20.6 % topical ointment (Moisture Barrier Ointment) 1 applic topical DAILY after each incontinence 03/01/24
menthol 0.44 %-zinc oxide 20.6 % topical ointment (Moisture Barrier Ointment) 1 applic topical DAILYPRN PRN buttock/sacrum to prevent break down 03/01/24
pantoprazole 40 mg tablet,delayed release 40 mg PO BID Gastrointestinal Issue 03/01/24
polyethylene glycol 3350 17 gram oral powder packet (HealthyLax) 17 g PO BID Constipation 03/01/24
prednisone 10 mg tablet 10 mg PO DAILY Anti-Inflammatory 03/01/24
sennosides 8.6 mg-docusate sodium 50 mg tablet 2 tab PO BID Constipation 03/01/24
Review of Systems
-
A 12 point ROS was completed and negative except as noted: Yes
Constitutional: Denies Fever or Chills
Respiratory: Denies Cough or Trouble Breathing
Cardiac: Denies Chest Pain or Palpitations
Physical Exam
Vital Signs
Vital Signs
Temp Pulse Resp BP Pulse Ox
97.7 F 70 17 102/66 95
03/01/24 14:06 03/01/24 19:15 03/01/24 19:15 03/01/24 19:00 03/01/24 19:15
Physical Exam
General: Comfortable and Conversant
HEENT: Anicteric, Moist mucous membranes and Oxygen (Nasal Cannula)
Respiratory: Rales (Fine faint crackles bilateral bases)
Cardiac: S1/S2 and Irregular Rhythm; No Tachycardia
GI: Soft and Non Tender
Musculoskeletal: No Clubbing, No Cyanosis and No Edema
Skin: Warm and Dry
Neuro: Awake, Alert, Oriented and Nonfocal/grossly intact
Psych: Calm
Laboratory Results
-
03/01/24 14:24
03/01/24 15:29
Laboratory Results
Total Bilirubin 2.0 mg/dl (0.2-1.3) H 03/01/24 15:29
AST 32 U/L (14-36) 03/01/24 15:29
ALT 18 U/L (0-35) 03/01/24 15:29
Alkaline Phosphatase 151 U/L (38-126) H 03/01/24 15:29
Lipase Cancelled 03/01/24 14:24
Data Reviewed
-
Diagnostic Radiology: Report Reviewed by me
CT Scan: Report Reviewed by me
Lab Data: Labs Reviewed by me
Impression/Plan
-
Abdominal/Rectal Pain, suspect related to constipation and hemorrhoids
-Add hydrocortisone suppository for hemorrhoids
-Resume bowel regimen from previous discharge
Chronic HFpEF
-CXR shows mild/moderate pulmonary edema however patient denies shortness of breath. She remains on her usual supplemental oxygen 2L via NC, and weight is stable from previous admission
-Continue Lasix 80mg PO BID as prior to admission
-Continue dapagliflozin and Spironolactone
-Monitor Is&Os and Daily Weights
Chronic Hypoxic Respiratory Failure
-Continue supplemental oxygen via nasal cannula
Permanent Atrial Fibrillation
-Continue Eliquis for anticoagulation
Chronic Hypotension
-Continue Midodrine
Dyslipidemia
-Continue Lipitor
Asthma, no acute exacerbation
-Continue fluticasone/salmeterol
GERD / Peptic Ulcer Disease
-Continue Protonix
-Per ED in October 2023 Carafate was to be continued for two weeks - Decrease dose to Daily and recommend stopping as this can contribute to worsening constipation
DVT proph: Eliquis
Code Status: DNR
[2024-03-01] MEDS: ProAmatine 10 MG PO (20:04)
[2024-03-01] MEDS: LASIX 40 MG IV (21:26)
[2024-03-01] MEDS: FLUSH (NSS) 1 FLUSH IV (21:26)
[2024-03-01] MEDS: KCL 40 MEQ PO (23:19)
[2024-03-01] MEDS: ZYRTEC 10 MG PO (23:19)
[2024-03-01] MEDS: NEURONTIN 300 MG PO (23:19)
[2024-03-01] MEDS: SINGULAIR 10 MG PO (23:19)
[2024-03-01] MEDS: ANUSOL HC 25 MG RECTAL (23:21)
[2024-03-02 01:09] VITALS: BMI 36.9
[2024-03-02 03:10] VITALS: BP 109/67
--- NOTE | 2024-03-02 05:57 | PTCARENOTE ---
Patient received from ED via stretcher. Son at bedside, patient very forgetful. Patient states that the hospital bed is uncomfortable and she typically sleeps in a recliner at home. Patient set up in recliner. Bed alarm placed on chair for safety.
POC reviewed with patient and son. Call simon with in reach. Care ongoing, will monitor.
[2024-03-02 06:00] VITALS: BMI 36.6
[2024-03-02 07:18] LABS: Blood Urea Nitrogen 17 mg/dl (7-17); Calcium 8.7 mg/dl (8.4-10.2); Carbon Dioxide 24 mmol/L (22-30); Chloride 99 mmol/L (98-107); Estimated Creatinine Clearance 82 ml/min; Glucose 83 mg/dl (70-99); Potassium 3.6 mmol/L (3.5-5.1); Sodium 140 mmol/L (135-145); eGFR > 60.00
--- NOTE | 2024-03-02 07:38 | PTCARENOTE ---
Patient received from ED via stretcher. Patient wheel chair bound at baseline. Patient denies any SOB. Patient reports she was given an enema at [facility] prior to arrival to ED, reports a large BM. POC reviewed with patient, call simon
within reach. Care ongoing. Will monitor.
[2024-03-02 07:57] VITALS: BP 111/68
[2024-03-02] MEDS: ADVAIR HFA 115/21 MCG INHALER 2 PUFF INH ×2 (08:07→20:00)
[2024-03-02] MEDS: KCL 40 MEQ PO ×3 (08:40→20:49)
[2024-03-02] MEDS: SENOKOT-S 2 TABLET PO ×2 (08:40→20:47)
[2024-03-02] MEDS: LASIX 80 MG PO ×2 (08:40→17:46)
[2024-03-02] MEDS: PROTONIX 40 MG PO ×2 (08:40→20:47)
[2024-03-02] MEDS: ProAmatine 10 MG PO ×2 (08:40→17:34)
[2024-03-02] MEDS: CARAFATE 1 GRAM PO (08:41)
[2024-03-02] MEDS: FARXIGA 10 MG PO (08:41)
[2024-03-02] MEDS: ELIQUIS 5 MG PO ×2 (08:41→20:48)
[2024-03-02] MEDS: ALDACTONE 25 MG PO (08:41)
[2024-03-02] MEDS: MIRALAX 17 GRAMS PO ×2 (08:41→20:48)
--- NOTE | 2024-03-02 11:35 | W.PN.HOSP.TC ---
Today's Communication/Plan
-
bowel regimen
monitor po tolerance
cont with lasix
Assessment / Plan
Assessment / Plan
General: Comfortable and Conversant
HEENT: Anicteric, Moist mucous membranes and Oxygen (Nasal Cannula)
Respiratory: Rales (Fine faint crackles bilateral bases)
Cardiac: S1/S2 and Irregular Rhythm; No Tachycardia
GI: Soft and Non Tender
Musculoskeletal: No Clubbing, No Cyanosis and No Edema
Skin: Warm and Dry
Neuro: Awake, Alert, Oriented and Nonfocal/grossly intact
Psych: Calm
Abdominal/Rectal Pain, suspect related to constipation and hemorrhoids
-Add hydrocortisone suppository for hemorrhoids
-Resume bowel regimen. If no improvment can add Enema
Chronic HFpEF
-CXR shows mild/moderate pulmonary edema however patient denies shortness of breath. She remains on her usual supplemental oxygen 2L via NC, and weight is stable from previous admission
-Continue Lasix 80mg PO BID as prior to admission
-Continue dapagliflozin and Spironolactone
-Monitor Is&Os and Daily Weights
Chronic Hypoxic Respiratory Failure
-Continue supplemental oxygen via nasal cannula
Permanent Atrial Fibrillation
-Continue Eliquis for anticoagulation
Chronic Hypotension
-Continue Midodrine
Dyslipidemia
-Continue Lipitor
Asthma, no acute exacerbation
-Continue fluticasone/salmeterol
GERD / Peptic Ulcer Disease
-Continue Protonix
-Per ED in October 2023 Carafate was to be continued for two weeks - Decrease dose to Daily and recommend stopping as this can contribute to worsening constipation
DVT proph: Eliquis
Code Status: DNR
Dispo-SNF. CM aware.
Anticipated Discharge: Within 24 hours
Subjective/Interval History
-
Date of Service: March 02, 2024
states of constipation at SNF
Intermittent abdomen discomfort
Objective Data
-
Labs:
Laboratory Results
03/02/24
05:42
Sodium 140
Potassium 3.6
Chloride 99
Carbon Dioxide 24
BUN 17
Creatinine 0.8
Glucose 83
Calcium 8.7
Vital Signs:
Vital Signs
Temp Pulse Resp BP Pulse Ox
97.5 F 75 16 111/68 94
03/02/24 07:57 03/02/24 08:20 03/02/24 08:20 03/02/24 07:57 03/02/24 08:20
I&O
03/01/24 03/02/24 03/03/24
06:59 06:59 06:59
Intake Total 480 / 480
Output Total 300 / 300
Balance 180 / 180
[2024-03-02 11:46] VITALS: BP 100/69
--- NOTE | 2024-03-02 15:30 | CM ---
Met with the patient at the bedside to complete initial assessment
Patient told the Attending earlier today that she did not want to return to the SNF @ [facility]. She stated that again to CM during the initial assessment
Pending disposition plan, will need to verify Pharmacy
Patient was a patient at [facility] when she called 911 to take her to the emergency room 03/01/2024; per the facility, NO BED is ON HOLD
Patient admitted via the ED as an Medicare Outpatient Observation status; JOHANSEN form explained and signed @ [id number]
Patient reported that she owns a home; has first floor setup; reported that she is wheelchair bound; unable to walk; needs assistance with personal care and ADLs
Stated she is not ready to go to a senior care care facility. 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
Discharge plan pending PT/OT evaluation
[2024-03-02 16:21] VITALS: BP 85/54
[2024-03-02] MEDS: DUPHALAC/CHRONULAC 20 GRAMS PO (17:34)
[2024-03-02] MEDS: LIPITOR 40 MG PO (17:34)
[2024-03-02 19:05] VITALS: BP 108/70
[2024-03-02] MEDS: NEURONTIN 300 MG PO (20:47)
[2024-03-02] MEDS: DULCOLAX 10 MG PO (20:47)
[2024-03-02] MEDS: ANUSOL HC RECTAL (20:49)
[2024-03-02] MEDS: MUCINEX 600 MG PO (20:50)
[2024-03-02] MEDS: SINGULAIR 10 MG PO (20:51)
[2024-03-02] MEDS: ZYRTEC 10 MG PO (20:52)
[2024-03-02 23:00] VITALS: BP 111/71
[2024-03-03 06:00] VITALS: BMI 36.6
[2024-03-03 07:49] VITALS: BP 108/65
[2024-03-03] MEDS: ADVAIR HFA 115/21 MCG INHALER INH ×2 (08:07→19:43)
[2024-03-03] MEDS: LASIX 80 MG PO ×2 (08:43→16:18)
[2024-03-03] MEDS: SENOKOT-S 2 TABLET PO ×2 (08:44→20:39)
[2024-03-03] MEDS: PROTONIX 40 MG PO ×2 (08:44→20:39)
[2024-03-03] MEDS: KCL 40 MEQ PO ×3 (08:44→22:33)
[2024-03-03] MEDS: ELIQUIS 5 MG PO ×2 (08:44→20:39)
[2024-03-03] MEDS: FARXIGA 10 MG PO (08:44)
[2024-03-03] MEDS: MIRALAX 17 GRAMS PO ×2 (08:44→20:39)
[2024-03-03] MEDS: ALDACTONE 25 MG PO (08:44)
[2024-03-03] MEDS: CARAFATE 1 GRAM PO (08:45)
[2024-03-03] MEDS: ProAmatine 10 MG PO ×2 (08:45→16:19)
[2024-03-03 11:00] VITALS: BP 117/80
--- NOTE | 2024-03-03 11:09 | W.PN.HOSP.TC ---
Today's Communication/Plan
-
Continue with aggressive bowel regimen
Continue with p.o. Lasix
Await placement
Assessment / Plan
Assessment / Plan
General: Comfortable and Conversant
HEENT: Anicteric, Moist mucous membranes and Oxygen (Nasal Cannula)
Respiratory: Rales (Fine faint crackles bilateral bases)
Cardiac: S1/S2 and Irregular Rhythm; No Tachycardia
GI: Soft and Non Tender
Musculoskeletal: No Clubbing, No Cyanosis and No Edema
Skin: Warm and Dry
Neuro: Awake, Alert, Oriented and Nonfocal/grossly intact
Psych: Calm
Abdominal/Rectal Pain, suspect related to constipation and hemorrhoids
-Add hydrocortisone suppository for hemorrhoids
-Resume bowel regimen.
Chronic HFpEF
-CXR shows mild/moderate pulmonary edema however patient denies shortness of breath. She remains on her usual supplemental oxygen 2L via NC, and weight is stable from previous admission
-Continue Lasix 80mg PO BID as prior to admission
-Continue dapagliflozin and Spironolactone
-Monitor Is&Os and Daily Weights
Chronic Hypoxic Respiratory Failure
-Continue supplemental oxygen via nasal cannula
Permanent Atrial Fibrillation
-Continue Eliquis for anticoagulation
Chronic Hypotension
-Continue Midodrine
Dyslipidemia
-Continue Lipitor
Asthma, no acute exacerbation
-Continue fluticasone/salmeterol
GERD / Peptic Ulcer Disease
-Continue Protonix
-Per ED in October 2023 Carafate was to be continued for two weeks - Decrease dose to Daily and recommend stopping as this can contribute to worsening constipation
DVT proph: Eliquis
Code Status: DNR
Dispo-SNF. Patient agreed to return to [facility]. Case management aware. Await disposition.
Anticipated Discharge: Today
Subjective/Interval History
-
Date of Service: March 03, 2024
Patient had a large bowel movement earlier today
Worked with PT earlier today
Objective Data
-
Vital Signs:
Vital Signs
Temp Pulse Resp BP Pulse Ox
97.6 F 72 18 108/65 93
03/03/24 07:49 03/03/24 07:49 03/03/24 07:49 03/03/24 07:49 03/03/24 07:49
I&O
03/02/24 03/03/24 03/04/24
06:59 06:59 06:59
Intake Total 480 / 480 780 / 780
Output Total 300 / 300 445 / 445
Balance 180 / 180 335 / 335
--- NOTE | 2024-03-03 11:31 | CM ---
Addendum entered by Gerri Johnson 03/03/24 13:00:
[facility] did not accept referral; reported that patient is 'non-compliant with treatment plan and longterm care paperwork'
CM contacted [facility] and spoke with Jacqueline Lewis # [phone]; assessment of patient and home environment requested
Patient will remain in the hospital until discharge plan identified. Attending notified; and told not to discharge patient
Original Note:
Per Attending, patient has changed her mind and [facility]
Plan: return to SNF if bed is available and facility accepts referral
[2024-03-03 15:32] VITALS: BP 100/68
[2024-03-03] MEDS: DUPHALAC/CHRONULAC 20 GRAMS PO (16:18)
[2024-03-03] MEDS: LIPITOR 40 MG PO (17:06)
[2024-03-03 19:30] VITALS: BP 100/65
[2024-03-03] MEDS: ANUSOL HC RECTAL (22:26)
[2024-03-03] MEDS: ZYRTEC 10 MG PO (22:33)
[2024-03-03] MEDS: NEURONTIN 300 MG PO (22:33)
[2024-03-03] MEDS: SINGULAIR 10 MG PO (22:33)
[2024-03-03] MEDS: MUCINEX 600 MG PO (22:33)
[2024-03-03 23:40] VITALS: BP 104/67
[2024-03-04] MEDS: TYLENOL 650 MG PO ×2 (01:14→22:48)
[2024-03-04 03:27] VITALS: BP 101/64
[2024-03-04 06:00] VITALS: BMI 35.8
[2024-03-04 07:25] LABS: Blood Urea Nitrogen 14 mg/dl (7-17); Calcium 8.6 mg/dl (8.4-10.2); Carbon Dioxide 24 mmol/L (22-30); Chloride 101 mmol/L (98-107); Estimated Creatinine Clearance 93 ml/min; Glucose 94 mg/dl (70-99); Potassium 4.3 mmol/L (3.5-5.1); Sodium 137 mmol/L (135-145); eGFR > 60.00
[2024-03-04] MEDS: ADVAIR HFA 115/21 MCG INHALER 2 PUFF INH (07:37)
[2024-03-04] MEDS: FARXIGA 10 MG PO (08:26)
[2024-03-04] MEDS: CARAFATE 1 GRAM PO (08:26)
[2024-03-04] MEDS: MIRALAX 17 GRAMS PO ×2 (08:26→20:47)
[2024-03-04] MEDS: PROTONIX 40 MG PO ×2 (08:27→20:46)
[2024-03-04] MEDS: SENOKOT-S 2 TABLET PO ×2 (08:27→20:47)
[2024-03-04] MEDS: ProAmatine 10 MG PO ×2 (08:27→17:00)
[2024-03-04] MEDS: KCL 40 MEQ PO ×3 (08:27→22:26)
[2024-03-04] MEDS: ELIQUIS 5 MG PO ×2 (08:27→20:47)
[2024-03-04] MEDS: LASIX 80 MG PO ×2 (08:27→17:00)
[2024-03-04] MEDS: ALDACTONE 25 MG PO (08:28)
[2024-03-04 08:38] VITALS: BP 114/77
--- NOTE | 2024-03-04 11:19 | W.PN.HOSP.TC ---
Today's Communication/Plan
-
Medically stable. Awaiting placement. CM aware.
Assessment / Plan
Assessment / Plan
General: Comfortable and Conversant
HEENT: Anicteric, Moist mucous membranes and Oxygen (Nasal Cannula)
Respiratory: Rales (Fine faint crackles bilateral bases)
Cardiac: S1/S2 and Irregular Rhythm; No Tachycardia
GI: Soft and Non Tender
Musculoskeletal: No Clubbing, No Cyanosis and No Edema
Skin: Warm and Dry
Neuro: Awake, Alert, Oriented and Nonfocal/grossly intact
Psych: Calm
Abdominal/Rectal Pain, suspect related to constipation and hemorrhoids
-Add hydrocortisone suppository for hemorrhoids
-Resume bowel regimen. Having bm.
Chronic HFpEF
-CXR shows mild/moderate pulmonary edema however patient denies shortness of breath. She remains on her usual supplemental oxygen 2L via NC, and weight is stable from previous admission
-Continue Lasix 80mg PO BID as prior to admission
-Continue dapagliflozin and Spironolactone
-Monitor Is&Os and Daily Weights
Chronic Hypoxic Respiratory Failure
-Continue supplemental oxygen via nasal cannula
Permanent Atrial Fibrillation
-Continue Eliquis for anticoagulation
Chronic Hypotension
-Continue Midodrine
Dyslipidemia
-Continue Lipitor
Asthma, no acute exacerbation
-Continue fluticasone/salmeterol
GERD / Peptic Ulcer Disease
-Continue Protonix
-Per ED in October 2023 Carafate was to be continued for two weeks - Decrease dose to Daily and recommend stopping as this can contribute to worsening constipation
DVT proph: Eliquis
Code Status: DNR
Dispo-SNF. Medically stable. Awaiting placement. CM aware.
Anticipated Discharge: Today
Subjective/Interval History
-
Date of Service: March 04, 2024
resting in bed comfortably
Objective Data
-
Labs:
Laboratory Results
03/04/24
06:48
Sodium 137
Potassium 4.3
Chloride 101
Carbon Dioxide 24
BUN 14
Creatinine 0.7
Glucose 94
Calcium 8.6
Vital Signs:
Vital Signs
Temp Pulse Resp BP Pulse Ox
97.4 F 74 20 114/77 92
03/04/24 08:38 03/04/24 08:38 03/04/24 08:38 03/04/24 08:38 03/04/24 08:38
I&O
03/03/24 03/04/24 03/05/24
06:59 06:59 06:59
Intake Total 780 / 780 750 / 750
Output Total 445 / 445
Balance 335 / 335 750 / 750
[2024-03-04 12:59] VITALS: BP 90/61
[2024-03-04 16:12] VITALS: BP 123/86
[2024-03-04] MEDS: DUPHALAC/CHRONULAC 20 GRAMS PO (17:03)
[2024-03-04] MEDS: LIPITOR 40 MG PO (17:04)
[2024-03-04 19:44] VITALS: BP 97/62
[2024-03-04] MEDS: ADVAIR HFA 115/21 MCG INHALER INH (20:16)
[2024-03-04] MEDS: ANUSOL HC RECTAL (21:44)
[2024-03-04] MEDS: SINGULAIR 10 MG PO (22:26)
[2024-03-04] MEDS: ZYRTEC 10 MG PO (22:26)
[2024-03-04] MEDS: MUCINEX 600 MG PO (22:26)
[2024-03-04] MEDS: NEURONTIN 300 MG PO (22:26)
[2024-03-04 23:52] VITALS: BP 102/58
[2024-03-05 03:29] VITALS: BP 100/68
[2024-03-05 06:36] VITALS: BMI 35.9
[2024-03-05 07:40] VITALS: BP 99/71
[2024-03-05] MEDS: ADVAIR HFA 115/21 MCG INHALER INH ×2 (07:48→19:48)
[2024-03-05] MEDS: FARXIGA 10 MG PO (08:05)
[2024-03-05] MEDS: KCL 40 MEQ PO ×3 (08:05→20:52)
[2024-03-05] MEDS: MIRALAX 17 GRAMS PO (08:05)
[2024-03-05] MEDS: SENOKOT-S 2 TABLET PO (08:06)
[2024-03-05] MEDS: CARAFATE 1 GRAM PO (08:06)
[2024-03-05] MEDS: ProAmatine 10 MG PO ×2 (08:06→16:40)
[2024-03-05] MEDS: PROTONIX 40 MG PO ×2 (08:07→20:51)
[2024-03-05] MEDS: ELIQUIS 5 MG PO ×2 (08:08→20:51)
[2024-03-05] MEDS: ALDACTONE 25 MG PO (08:10)
[2024-03-05] MEDS: LASIX 80 MG PO ×2 (08:10→16:40)
--- NOTE | 2024-03-05 10:13 | W.PN.HOSP.TC ---
Today's Communication/Plan
-
SNF. Medically stable. Awaiting placement. CM aware. [facility] involved
Assessment / Plan
Assessment / Plan
General: Comfortable and Conversant
HEENT: Anicteric, Moist mucous membranes and Oxygen (Nasal Cannula)
Respiratory: Rales (Fine faint crackles bilateral bases)
Cardiac: S1/S2 and Irregular Rhythm; No Tachycardia
GI: Soft and Non Tender, non distended. epigastric lipoma palpated,
Musculoskeletal: No Clubbing, No Cyanosis and No Edema
Skin: Warm and Dry
Neuro: Awake, Alert, Oriented and Nonfocal/grossly intact
Psych: Calm
Abdominal/Rectal Pain, suspect related to constipation and hemorrhoids
-Add hydrocortisone suppository for hemorrhoids
-Resume bowel regimen. Having bm.
Chronic HFpEF
-CXR shows mild/moderate pulmonary edema however patient denies shortness of breath. She remains on her usual supplemental oxygen 2L via NC, and weight is stable from previous admission
-Continue Lasix 80mg PO BID as prior to admission
-Continue dapagliflozin and Spironolactone
-Monitor Is&Os and Daily Weights
Chronic Hypoxic Respiratory Failure
-Continue supplemental oxygen via nasal cannula
Permanent Atrial Fibrillation
-Continue Eliquis for anticoagulation
Chronic Hypotension
-Continue Midodrine
Dyslipidemia
-Continue Lipitor
Asthma, no acute exacerbation
-Continue fluticasone/salmeterol
GERD / Peptic Ulcer Disease
-Continue Protonix
-Per ED in October 2023 Carafate was to be continued for two weeks - Decrease dose to Daily and recommend stopping as this can contribute to worsening constipation
DVT proph: Eliquis
Code Status: DNR
Dispo-SNF. Medically stable. Awaiting placement. CM aware. [facility] involved
Anticipated Discharge: Today
Subjective/Interval History
-
Date of Service: March 05, 2024
resting
having bm
no chest pain or sob
Objective Data
-
Labs:
Laboratory Results
03/05/24
06:00
Sodium Pending
Potassium Pending
Chloride Pending
Carbon Dioxide Pending
BUN Pending
Creatinine Pending
Glucose Pending
Calcium Pending
Vital Signs:
Vital Signs
Temp Pulse Resp BP Pulse Ox
97.5 F 72 20 116/72 95
03/05/24 07:40 03/05/24 08:10 03/05/24 07:40 03/05/24 08:10 03/05/24 07:40
I&O
03/04/24 03/05/24 03/06/24
06:59 06:59 06:59
Intake Total 750 / 750 1680 / 1680
Balance 750 / 750 1680 / 1680
[2024-03-05 12:01] VITALS: BP 113/70
[2024-03-05 15:36] VITALS: BP 106/65
[2024-03-05] MEDS: DUPHALAC/CHRONULAC 20 GRAMS PO (16:40)
[2024-03-05] MEDS: LIPITOR 40 MG PO (16:41)
[2024-03-05] MEDS: MUCINEX 600 MG PO (20:51)
[2024-03-05] MEDS: NEURONTIN 300 MG PO (20:51)
[2024-03-05] MEDS: SENOKOT-S PO (20:51)
[2024-03-05] MEDS: MIRALAX PO (20:51)
[2024-03-05] MEDS: ANUSOL HC RECTAL (20:53)
[2024-03-05] MEDS: ZYRTEC 10 MG PO (20:58)
[2024-03-05] MEDS: SINGULAIR 10 MG PO (20:58)
[2024-03-05 23:15] VITALS: BP 100/66
[2024-03-06 05:53] VITALS: BMI 36.3
[2024-03-06 06:00] VITALS: BMI 36.3
[2024-03-06 07:25] VITALS: BP 105/64
[2024-03-06] MEDS: ADVAIR HFA 115/21 MCG INHALER INH ×2 (07:36→19:51)
[2024-03-06] MEDS: ProAmatine 10 MG PO ×2 (08:10→16:57)
[2024-03-06] MEDS: FARXIGA 10 MG PO (08:10)
[2024-03-06] MEDS: ALDACTONE 25 MG PO (08:11)
[2024-03-06] MEDS: LASIX 80 MG PO ×2 (08:11→16:58)
[2024-03-06] MEDS: KCL 40 MEQ PO ×3 (08:11→20:54)
[2024-03-06] MEDS: CARAFATE 1 GRAM PO (08:11)
[2024-03-06] MEDS: MIRALAX 17 GRAMS PO ×2 (08:11→20:53)
[2024-03-06] MEDS: PROTONIX 40 MG PO ×2 (08:11→20:54)
[2024-03-06] MEDS: SENOKOT-S 2 TABLET PO ×2 (08:11→20:54)
[2024-03-06] MEDS: ELIQUIS 5 MG PO ×2 (08:11→20:54)
--- NOTE | 2024-03-06 11:56 | W.PN.HOSP.TC ---
Today's Communication/Plan
-
see A/P
Assessment / Plan
Assessment / Plan
A/P:
# Abdominal/rectal pain, suspect related to constipation and hemorrhoids
Added hydrocortisone suppository for hemorrhoids
Resumed bowel regimen. Constipation has resolved.
# Chronic HFpEF
CXR shows mild/moderate pulmonary edema however patient denies shortness of breath.
She remains on her usual supplemental oxygen 2L via NC, and weight is stable from previous admission
Continue Lasix 80mg PO BID as prior to admission
Continue dapagliflozin and Spironolactone
Monitor Is&Os and Daily Weights
# Chronic Hypoxic Respiratory Failure
Continue supplemental oxygen via nasal cannula
# Permanent Atrial Fibrillation
Continue Eliquis for anticoagulation
# Chronic Hypotension
Continue Midodrine
# Dyslipidemia
Continue Lipitor
# Asthma, no acute exacerbation
Continue fluticasone/salmeterol
# GERD / Peptic Ulcer Disease
Continue Protonix
Per ED in October 2023 Carafate was to be continued for two weeks - Decrease dose to Daily and recommend stopping as this can contribute to worsening constipation
DVT proph: Eliquis
Code Status: DNR
Dispo-SNF. Medically stable. Awaiting placement. CM aware. [facility] agency involved
Anticipated Discharge: 24 - 48 hours
Subjective/Interval History
-
Date of Service: March 06, 2024
Objective Data
-
Labs:
Laboratory Results
03/06/24
06:00
Sodium Pending
Potassium Pending
Chloride Pending
Carbon Dioxide Pending
BUN Pending
Creatinine Pending
Glucose Pending
Calcium Pending
Vital Signs:
Vital Signs
Temp Pulse Resp BP Pulse Ox
36.6 C 70 17 105/64 93
03/06/24 07:25 03/06/24 08:11 03/06/24 07:25 03/06/24 08:11 03/06/24 07:25
I&O
03/05/24 03/06/24 03/07/24
06:59 06:59 06:59
Intake Total 1680 / 1680 420 / 420
Balance 1680 / 1680 420 / 420
Review of Systems
-
History Source: Patient
All other systems: Reviewed and negative
Physical Exam
-
General: Well Developed, Well Nourished, Comfortable, Respiratory Distress (chronic), Conversant and Obese
HEENT: Normocephalic, Atraumatic, Moist Mucous Membranes and Oxygen (2L NC)
Respiratory: Clear to Auscultation and Non Labored Respirations; Negative Accessory Resp Muscle Use
Cardiac: Regular Rhythm and S1/S2; Negative Murmur, Rub or JVD
GI: Soft, Nontender, Nondistended and Normal Bowel Sounds
Genito-urinary: No Costovertebral Tender
Musculoskeletal: No Clubbing, No Cyanosis and No Edema
Skin: Warm and Dry; Negative Rash
Neuro: Awake and Alert
Psych: Calm and Intact Judgement/Insight
Data Reviewed
-
Labs: Labs Reviewed by me
--- NOTE | 2024-03-06 12:18 | CM ---
CM reviewed chart and spoke with [facility]
She confirmed pt denied readmission at [facility] and sister facilities due to noncompliance and refusal to provide financial info
Bedside meeting with pt- she is in agreement large net of SNF referrals for bed search
She noted she is willing to pay for SNF bed now
Her dtr had bedside meeting yesterday and brought mail/financial statements
Pt notes her alternative is to go home with private duty caregivers
Approx costs provided and not aware initially how expensive private duty is
Will plan for SNF, likely private pay and will need LTC
PASRR completed and large net of SNF referrals sent
All pending
CM will continue to follow for dc planning
Discharge Disposition- SNF
[2024-03-06 15:33] VITALS: BP 98/54
[2024-03-06] MEDS: DUPHALAC/CHRONULAC 20 GRAMS PO (16:57)
[2024-03-06] MEDS: LIPITOR 40 MG PO (16:58)
[2024-03-06] MEDS: ANUSOL HC RECTAL (20:52)
[2024-03-06] MEDS: MUCINEX 600 MG PO ×2 (20:53)
[2024-03-06] MEDS: SINGULAIR 10 MG PO (20:54)
[2024-03-06] MEDS: ZYRTEC 10 MG PO (20:54)
[2024-03-06] MEDS: NEURONTIN 300 MG PO (20:54)
[2024-03-06 23:50] VITALS: BP 99/60
[2024-03-07 06:00] VITALS: BMI 36.1
[2024-03-07 07:22] VITALS: BP 95/70
[2024-03-07] MEDS: ADVAIR HFA 115/21 MCG INHALER 2 PUFF INH (07:30)
[2024-03-07] MEDS: ELIQUIS 5 MG PO ×2 (08:20→19:47)
[2024-03-07] MEDS: CARAFATE 1 GRAM PO (08:20)
[2024-03-07] MEDS: SENOKOT-S 2 TABLET PO ×2 (08:21→19:48)
[2024-03-07] MEDS: MIRALAX 17 GRAMS PO (08:21)
[2024-03-07] MEDS: FARXIGA 10 MG PO (08:21)
[2024-03-07] MEDS: PROTONIX 40 MG PO ×2 (08:21→19:47)
[2024-03-07] MEDS: ProAmatine 10 MG PO ×2 (08:21→16:06)
[2024-03-07] MEDS: LASIX 80 MG PO ×2 (08:21→15:53)
[2024-03-07] MEDS: KCL 40 MEQ PO ×3 (08:21→22:13)
[2024-03-07] MEDS: ALDACTONE 25 MG PO (08:21)
[2024-03-07 08:25] VITALS: BP 102/68
--- NOTE | 2024-03-07 11:02 | W.PN.HOSP.TC ---
Today's Communication/Plan
-
dispo planning
Assessment / Plan
Assessment / Plan
A/P:
# Abdominal/rectal pain, suspect related to constipation and hemorrhoids
Added hydrocortisone suppository for hemorrhoids
Resumed bowel regimen. Constipation has resolved.
# Chronic HFpEF
CXR shows mild/moderate pulmonary edema however patient denies shortness of breath.
She remains on her usual supplemental oxygen 2L via NC, and weight is stable from previous admission
Continue Lasix 80mg PO BID as prior to admission
Continue dapagliflozin and Spironolactone
Monitor Is&Os and Daily Weights
# Chronic Hypoxic Respiratory Failure
Continue supplemental oxygen via nasal cannula
# Permanent Atrial Fibrillation
Continue Eliquis for anticoagulation
# Chronic Hypotension
Continue Midodrine
# Dyslipidemia
Continue Lipitor
# Asthma, no acute exacerbation
Continue fluticasone/salmeterol
# GERD / Peptic Ulcer Disease
Continue Protonix
Per ED in October 2023 Carafate was to be continued for two weeks - Decrease dose to Daily and recommend stopping as this can contribute to worsening constipation
DVT proph: Eliquis
Code Status: DNR
Dispo-SNF. Medically stable. Awaiting placement. CM aware. [facility] aging agency involved
Anticipated Discharge: 24 - 48 hours
Subjective/Interval History
-
Date of Service: March 07, 2024
Objective Data
-
Vital Signs:
Vital Signs
Temp Pulse Resp BP Pulse Ox
36.6 C 70 16 95/70 92
03/07/24 07:22 03/07/24 07:35 03/07/24 07:35 03/07/24 07:22 03/07/24 07:35
I&O
03/06/24 03/07/24 03/08/24
06:59 06:59 06:59
Intake Total 420 / 420 1080 / 1080
Balance 420 / 420 1080 / 1080
Review of Systems
-
History Source: Patient
All other systems: Reviewed and negative
Physical Exam
-
General: Well Developed, Well Nourished, Comfortable, Respiratory Distress (chronic), Conversant and Obese
HEENT: Normocephalic, Atraumatic, Moist Mucous Membranes and Oxygen (2L NC)
Respiratory: Clear to Auscultation and Non Labored Respirations; Negative Accessory Resp Muscle Use
Cardiac: Regular Rhythm and S1/S2; Negative Murmur, Rub or JVD
GI: Soft, Nontender, Nondistended and Normal Bowel Sounds
Genito-urinary: No Costovertebral Tender
Musculoskeletal: No Clubbing, No Cyanosis and No Edema
Skin: Warm and Dry; Negative Rash
Neuro: Awake and Alert
Psych: Calm and Intact Judgement/Insight
[2024-03-07 15:30] VITALS: BP 108/73
[2024-03-07] MEDS: DUPHALAC/CHRONULAC 20 GRAMS PO (15:53)
--- NOTE | 2024-03-07 15:57 | CM ---
CM completed bedside visit with pt
[facility] and sister facilities will not reconsider
She has outstanding balance of $13k
Alireza Christian, Lawanda Velásquez and Jennifer White all interested
CM provide list with Medicare ratings
She will review tonight and provide facility choice tomorrow
Pt with qualifying stay given recent SNF admission to [facility]
This updated info provided to SNF referrals in [facility]
Pt received call from Dolly Gauthier/[facility] ([phone])
Pt open to protective services and she requesting dc planning updates
Discharge Disposition- SNF
[2024-03-07] MEDS: LIPITOR 40 MG PO (17:14)
[2024-03-07] MEDS: ADVAIR HFA 115/21 MCG INHALER INH (19:27)
[2024-03-07] MEDS: MIRALAX PO (19:58)
[2024-03-07] MEDS: NEURONTIN 300 MG PO (22:13)
[2024-03-07] MEDS: SINGULAIR 10 MG PO (22:14)
[2024-03-07] MEDS: ZYRTEC 10 MG PO (22:14)
[2024-03-07] MEDS: ANUSOL HC RECTAL (22:15)
[2024-03-07 23:58] VITALS: BP 99/58
[2024-03-08 07:00] VITALS: BP 101/67
[2024-03-08] MEDS: ProAmatine 10 MG PO ×2 (07:19→17:01)
[2024-03-08] MEDS: PROTONIX 40 MG PO ×2 (07:19→20:35)
[2024-03-08] MEDS: SENOKOT-S 2 TABLET PO ×2 (07:19→20:35)
[2024-03-08] MEDS: FARXIGA 10 MG PO (07:19)
[2024-03-08] MEDS: LASIX 80 MG PO ×2 (07:19→15:05)
[2024-03-08] MEDS: CARAFATE 1 GRAM PO (07:22)
[2024-03-08] MEDS: ELIQUIS 5 MG PO ×2 (07:22→20:34)
[2024-03-08] MEDS: KCL 40 MEQ PO ×3 (07:22→21:48)
[2024-03-08] MEDS: ALDACTONE 12.5 MG PO (07:22)
[2024-03-08] MEDS: MIRALAX 17 GRAMS PO ×2 (07:22→20:34)
[2024-03-08] MEDS: ADVAIR HFA 115/21 MCG INHALER 2 PUFF INH (07:46)
[2024-03-08 08:00] VITALS: BMI 35.8
--- NOTE | 2024-03-08 11:25 | W.PN.HOSP.TC ---
Today's Communication/Plan
-
dispo planning
Assessment / Plan
Assessment / Plan
A/P:
# Abdominal/rectal pain, suspect related to constipation and hemorrhoids
Added hydrocortisone suppository for hemorrhoids
Resumed bowel regimen. Constipation has resolved.
# Chronic HFpEF
CXR shows mild/moderate pulmonary edema however patient denies shortness of breath.
She remains on her usual supplemental oxygen 2L via NC, and weight is stable from previous admission
Continue Lasix 80mg PO BID as prior to admission
Continue dapagliflozin and Spironolactone
Monitor Is&Os and Daily Weights
# Chronic Hypoxic Respiratory Failure
Continue supplemental oxygen via nasal cannula
# Permanent Atrial Fibrillation
Continue Eliquis for anticoagulation
# Chronic Hypotension
Continue Midodrine
# Dyslipidemia
Continue Lipitor
# Asthma, no acute exacerbation
Continue fluticasone/salmeterol
# GERD / Peptic Ulcer Disease
Continue Protonix
Per ED in October 2023 Carafate was to be continued for two weeks - Decrease dose to Daily and recommend stopping as this can contribute to worsening constipation
# BL mild ear pain
trial of debrox ear drop to clear ear wax
DVT proph: Eliquis
Code Status: DNR
Dispo-SNF. Medically stable. Awaiting placement. CM aware. [facility] aging agency involved
Anticipated Discharge: 24 - 48 hours
Subjective/Interval History
-
Date of Service: March 08, 2024
Objective Data
-
Labs:
Laboratory Results
03/08/24
06:00
Sodium Pending
Potassium Pending
Chloride Pending
Carbon Dioxide Pending
BUN Pending
Creatinine Pending
Glucose Pending
Calcium Pending
Vital Signs:
Vital Signs
Temp Pulse Resp BP Pulse Ox
36.5 C 68 16 101/67 95
03/08/24 07:00 03/08/24 07:49 03/08/24 07:49 03/08/24 07:00 03/08/24 07:49
I&O
03/07/24 03/08/24 03/09/24
06:59 06:59 06:59
Intake Total 1080 / 1080 600 / 600
Output Total 500 / 500
Balance 1080 / 1080 100 / 100
Review of Systems
-
History Source: Patient
All other systems: Reviewed and negative
Physical Exam
-
General: Well Developed, Well Nourished, Comfortable, Respiratory Distress (chronic), Conversant and Obese
HEENT: Normocephalic, Atraumatic, Moist Mucous Membranes and Oxygen (2L NC)
Respiratory: Clear to Auscultation and Non Labored Respirations; Negative Accessory Resp Muscle Use
Cardiac: Regular Rhythm and S1/S2; Negative Murmur, Rub or JVD
GI: Soft, Nontender, Nondistended and Normal Bowel Sounds
Genito-urinary: No Costovertebral Tender
Musculoskeletal: No Clubbing, No Cyanosis and No Edema
Skin: Warm and Dry; Negative Rash
Neuro: Awake and Alert
Psych: Calm and Intact Judgement/Insight
[2024-03-08] MEDS: DEBROX EAR DROPS 2 DROP OTIC (13:06)
[2024-03-08 15:00] VITALS: BP 104/70
[2024-03-08] MEDS: DUPHALAC/CHRONULAC 20 GRAMS PO (15:05)
--- NOTE | 2024-03-08 16:18 | CM ---
CM reviewed chart and pt remains medically ready for dc
Beside meeting with pt- she selected [facility]
Multiple calls with Radha/admissions
Requested she try to skill pt on admission based off recent SNF admission
She is awaiting clarification from [facility] on Medicare days and admissions dates
Pt now made inpatient effective 03/08
Radha will update CM tomorrow if pt recent SNF stay can be used to obtain skilled time
Discharge Disposition- [facility]
[2024-03-08] MEDS: LIPITOR 40 MG PO (17:01)
[2024-03-08] MEDS: ADVAIR HFA 115/21 MCG INHALER INH (19:50)
[2024-03-08] MEDS: MUCINEX 600 MG PO (21:48)
[2024-03-08] MEDS: ANUSOL HC RECTAL ×2 (21:48→21:57)
[2024-03-08] MEDS: ZYRTEC 10 MG PO (21:48)
[2024-03-08] MEDS: SINGULAIR 10 MG PO (21:48)
[2024-03-08] MEDS: DEBROX EAR DROPS 1 DROP OTIC (21:48)
[2024-03-08] MEDS: NEURONTIN 300 MG PO (21:48)
[2024-03-08 23:40] VITALS: BP 113/70
[2024-03-09 05:13] VITALS: BMI 35.2
[2024-03-09] MEDS: ADVAIR HFA 115/21 MCG INHALER 2 PUFF INH (07:41)
[2024-03-09] MEDS: KCL 40 MEQ PO ×3 (07:51→21:15)
[2024-03-09] MEDS: ProAmatine 10 MG PO ×2 (07:51→17:29)
[2024-03-09] MEDS: PROTONIX 40 MG PO ×2 (07:51→21:14)
[2024-03-09] MEDS: FARXIGA 10 MG PO (07:51)
[2024-03-09] MEDS: MIRALAX 17 GRAMS PO ×2 (07:51→21:15)
[2024-03-09] MEDS: CARAFATE 1 GRAM PO (07:52)
[2024-03-09] MEDS: ELIQUIS 5 MG PO ×2 (07:52→21:14)
[2024-03-09] MEDS: ALDACTONE 12.5 MG PO (07:52)
[2024-03-09] MEDS: SENOKOT-S 2 TABLET PO ×2 (07:52→21:16)
[2024-03-09] MEDS: DEBROX EAR DROPS 1 DROP OTIC (07:52)
[2024-03-09] MEDS: LASIX 80 MG PO ×2 (07:54→15:15)
[2024-03-09 07:58] VITALS: BP 102/72
--- NOTE | 2024-03-09 10:28 | W.PN.HOSP.TC ---
Today's Communication/Plan
-
see A/P
Assessment / Plan
Assessment / Plan
A/P:
# Abdominal/rectal pain, suspect related to constipation and hemorrhoids
Added hydrocortisone suppository for hemorrhoids
Resumed bowel regimen. Constipation has resolved.
# Chronic HFpEF
CXR shows mild/moderate pulmonary edema however patient denies shortness of breath.
She remains on her usual supplemental oxygen 2L via NC, and weight is stable from previous admission
Continue Lasix 80mg PO BID as prior to admission
Continue dapagliflozin and Spironolactone
Monitor Is&Os and Daily Weights
# Chronic Hypoxic Respiratory Failure
Continue supplemental oxygen via nasal cannula
# Permanent Atrial Fibrillation
Continue Eliquis for anticoagulation
# Chronic Hypotension
Continue Midodrine
# Dyslipidemia
Continue Lipitor
# Asthma, no acute exacerbation
Continue fluticasone/salmeterol
# GERD / Peptic Ulcer Disease
Continue Protonix
Per ED in October 2023 Carafate was to be continued for two weeks - Decrease dose to Daily and recommend stopping as this can contribute to worsening constipation
# BL mild ear pain
trial of debrox ear drop to clear ear wax
DVT proph: Eliquis
Code Status: DNR
Dispo-SNF. Medically stable. Awaiting placement. CM aware. [facility] aging agency involved
Anticipated Discharge: 24 - 48 hours
Subjective/Interval History
-
Date of Service: March 09, 2024
Objective Data
-
Vital Signs:
Vital Signs
Temp Pulse Resp BP Pulse Ox
36.6 C 71 16 102/72 91
03/09/24 07:58 03/09/24 07:58 03/09/24 07:58 03/09/24 07:58 03/09/24 07:58
I&O
03/08/24 03/09/24 03/10/24
06:59 06:59 06:59
Intake Total 600 / 600 900 / 900
Output Total 500 / 500
Balance 100 / 100 900 / 900
Review of Systems
-
History Source: Patient
All other systems: Reviewed and negative
Physical Exam
-
General: Well Developed, Well Nourished, Comfortable, Respiratory Distress (chronic), Conversant and Obese
HEENT: Normocephalic, Atraumatic, Moist Mucous Membranes and Oxygen (2L NC)
Respiratory: Clear to Auscultation and Non Labored Respirations; Negative Accessory Resp Muscle Use
Cardiac: Regular Rhythm and S1/S2; Negative Murmur, Rub or JVD
GI: Soft, Nontender, Nondistended and Normal Bowel Sounds
Genito-urinary: No Costovertebral Tender
Musculoskeletal: No Clubbing, No Cyanosis and No Edema
Skin: Warm and Dry; Negative Rash
Neuro: Awake and Alert
Psych: Calm and Intact Judgement/Insight
--- NOTE | 2024-03-09 15:02 | CM ---
Received a call from Radha @ [facility]; reported that referral was reviewed and they can accept patient
CM will call Radha @ [phone] tomorrow and confirm bed availability
[2024-03-09] MEDS: DUPHALAC/CHRONULAC 20 GRAMS PO (15:14)
[2024-03-09 15:35] VITALS: BP 117/68
[2024-03-09] MEDS: LIPITOR 40 MG PO (17:29)
[2024-03-09] MEDS: ADVAIR HFA 115/21 MCG INHALER INH (20:07)
[2024-03-09] MEDS: DEBROX EAR DROPS 2 DROP OTIC (21:13)
[2024-03-09] MEDS: NEURONTIN 300 MG PO (21:15)
[2024-03-09] MEDS: MUCINEX 600 MG PO (21:15)
[2024-03-09] MEDS: ZYRTEC 10 MG PO (21:15)
[2024-03-09] MEDS: ANUSOL HC RECTAL (21:19)
[2024-03-09] MEDS: SINGULAIR 10 MG PO (21:20)
[2024-03-09 23:35] VITALS: BP 95/73
[2024-03-10 02:05] VITALS: BP 105/65
[2024-03-10 06:00] VITALS: BMI 35.3
[2024-03-10 07:50] VITALS: BP 90/58
[2024-03-10] MEDS: ADVAIR HFA 115/21 MCG INHALER 2 PUFF INH (07:56)
[2024-03-10 08:40] VITALS: BMI 35.3
[2024-03-10] MEDS: FARXIGA 10 MG PO (09:29)
[2024-03-10] MEDS: CARAFATE 1 GRAM PO (09:29)
[2024-03-10] MEDS: KCL 40 MEQ PO ×3 (09:32→22:51)
[2024-03-10] MEDS: PROTONIX 40 MG PO ×2 (09:32→19:41)
[2024-03-10] MEDS: ELIQUIS 5 MG PO ×2 (09:32→19:41)
[2024-03-10] MEDS: SENOKOT-S 2 TABLET PO ×2 (09:40→19:41)
[2024-03-10] MEDS: MIRALAX 17 GRAMS PO (09:42)
[2024-03-10] MEDS: DEBROX EAR DROPS 1 DROP OTIC (09:42)
[2024-03-10] MEDS: LASIX PO (09:43)
[2024-03-10] MEDS: ProAmatine 10 MG PO ×2 (09:43→16:14)
[2024-03-10] MEDS: ALDACTONE PO (09:43)
[2024-03-10 09:52] VITALS: BP 92/60
--- NOTE | 2024-03-10 11:26 | W.PN.HOSP.TC ---
Today's Communication/Plan
-
see A/P
Assessment / Plan
Assessment / Plan
A/P:
# Abdominal/rectal pain, suspect related to constipation and hemorrhoids
Added hydrocortisone suppository for hemorrhoids
Resumed bowel regimen. Constipation has resolved.
# Chronic HFpEF
CXR shows mild/moderate pulmonary edema however patient denies shortness of breath.
She remains on her usual supplemental oxygen 2L via NC, and weight is stable from previous admission
Continue Lasix 80mg PO BID as prior to admission
Continue dapagliflozin and Spironolactone
Monitor Is&Os and Daily Weights
# Chronic Hypoxic Respiratory Failure
Continue supplemental oxygen via nasal cannula
# Permanent Atrial Fibrillation
Continue Eliquis for anticoagulation
# Chronic Hypotension
Continue Midodrine
# Dyslipidemia
Continue Lipitor
# Asthma, no acute exacerbation
Continue fluticasone/salmeterol
# GERD / Peptic Ulcer Disease
Continue Protonix
Per ED in October 2023 Carafate was to be continued for two weeks - Decrease dose to Daily and recommend stopping as this can contribute to worsening constipation
# BL mild ear pain
trial of debrox ear drop to clear ear wax
DVT proph: Eliquis
Code Status: DNR
Dispo-SNF. Medically stable. Awaiting placement. CM aware. [facility] aging agency involved
DW CM
Anticipated Discharge: Within 24 hours
Subjective/Interval History
-
Date of Service: March 10, 2024
Objective Data
-
Vital Signs:
Vital Signs
Temp Pulse Resp BP Pulse Ox
36.7 C 70 18 92/60 94
03/10/24 07:50 03/10/24 09:43 03/10/24 08:01 03/10/24 09:52 03/10/24 08:40
I&O
03/09/24 03/10/2424
06:59 06:59 06:59
Intake Total 900 / 900 1919
Balance 900 / 900 1919
Review of Systems
-
History Source: Patient
All other systems: Reviewed and negative
Physical Exam
-
General: Well Developed, Well Nourished, Comfortable, Respiratory Distress (chronic), Conversant and Obese
HEENT: Normocephalic, Atraumatic, Moist Mucous Membranes and Oxygen (2L NC)
Respiratory: Clear to Auscultation and Non Labored Respirations; Negative Accessory Resp Muscle Use
Cardiac: Regular Rhythm and S1/S2; Negative Murmur, Rub or JVD
GI: Soft, Nontender, Nondistended and Normal Bowel Sounds
Genito-urinary: No Costovertebral Tender
Musculoskeletal: No Clubbing, No Cyanosis and No Edema
Skin: Warm and Dry; Negative Rash
Neuro: Awake and Alert
Psych: Calm and Intact Judgement/Insight
Data Reviewed
-
Labs: Labs Reviewed by me
--- NOTE | 2024-03-10 15:30 | CM ---
Addendum entered by Jennifer Reyes RN 03/10/24 17:21:
Ambulance transport for 1pm tomorrow confirmed with [facility].
Original Note:
Patient with Dx Abdominal/rectal pain, chronic HF. O2 2L. PT/OT recommend skilled rehab.
Met with patient; she agrees with [facility] tomorrow by ambulance for short term rehab. Patient is hoping to go home after that, hire a caregiver who will be a live-in, with small payment including a place to live. IMM completed.
Per Dr Abdul, can arrange ambulance tomorrow for d/c at 1pm.
Spoke with [facility] (cell [phone]); they are able to accept the patient tomorrow and prefer transport by noon- informed her MD agrees to 1pm transport, and she agrees. The ph for report [phone], fax [phone].
Ambulance forms provided to Eric, screening unit registered nurse and ambulance requested for tomorrow at 1pm.
Plan [facility] tomorrow by ambulance.
[2024-03-10 15:31] VITALS: BP 117/77
[2024-03-10] MEDS: LASIX 80 MG PO (16:12)
[2024-03-10] MEDS: DUPHALAC/CHRONULAC 20 GRAMS PO (16:13)
[2024-03-10] MEDS: LIPITOR 40 MG PO (18:23)
[2024-03-10] MEDS: MIRALAX PO (19:43)
[2024-03-10] MEDS: DEBROX EAR DROPS 2 DROP OTIC (19:43)
[2024-03-10] MEDS: ADVAIR HFA 115/21 MCG INHALER INH (19:54)
[2024-03-10] MEDS: ANUSOL HC RECTAL (22:11)
[2024-03-10] MEDS: NEURONTIN 300 MG PO (22:51)
[2024-03-10] MEDS: MUCINEX 600 MG PO (22:51)
[2024-03-10] MEDS: ZYRTEC 10 MG PO (22:51)
[2024-03-10] MEDS: SINGULAIR 10 MG PO (22:51)
[2024-03-10 23:00] VITALS: BP 100/63
[2024-03-11 06:00] VITALS: BMI 35.8
[2024-03-11 07:00] VITALS: BP 108/73
[2024-03-11] MEDS: ADVAIR HFA 115/21 MCG INHALER 2 PUFF INH (07:46)
[2024-03-11] MEDS: SENOKOT-S 2 TABLET PO (09:41)
[2024-03-11] MEDS: ELIQUIS 5 MG PO (09:41)
[2024-03-11] MEDS: LASIX 80 MG PO (09:41)
[2024-03-11] MEDS: ProAmatine 10 MG PO (09:42)
[2024-03-11] MEDS: FARXIGA 10 MG PO (09:42)
[2024-03-11] MEDS: ALDACTONE 12.5 MG PO (09:42)
[2024-03-11] MEDS: KCL 40 MEQ PO (09:42)
[2024-03-11] MEDS: PROTONIX 40 MG PO (09:42)
[2024-03-11] MEDS: MIRALAX 17 GRAMS PO (09:43)
[2024-03-11] MEDS: DEBROX EAR DROPS 1 DROP OTIC (09:43)
[2024-03-11] MEDS: CARAFATE 1 GRAM PO (09:43)
--- NOTE | 2024-03-11 10:01 | W.PN.HOSP.TC ---
Addendum entered and electronically signed by Preeti Abdul MD 03/11/24 11:45:
total DC time 35 min
Original Note:
Today's Communication/Plan
-
DC today to SNF
Assessment / Plan
Assessment / Plan
A/P:
# Abdominal/rectal pain, suspect related to constipation and hemorrhoids
Added hydrocortisone suppository for hemorrhoids
Resumed bowel regimen. Constipation has resolved.
# Chronic HFpEF
CXR shows mild/moderate pulmonary edema however patient denies shortness of breath.
She remains on her usual supplemental oxygen 2L via NC, and weight is stable from previous admission
Continue Lasix 80mg PO BID as prior to admission with holding parameter
Continue dapagliflozin and Spironolactone
Monitor Is&Os and Daily Weights
# Chronic Hypoxic Respiratory Failure
Continue supplemental oxygen via nasal cannula
# Permanent Atrial Fibrillation
Continue Eliquis for anticoagulation
# Chronic Hypotension
Continue Midodrine
# Dyslipidemia
Continue Lipitor
# Asthma, no acute exacerbation
Continue fluticasone/salmeterol
# GERD / Peptic Ulcer Disease
Continue Protonix
Per ED in October 2023 Carafate was to be continued for two weeks - Decrease dose to Daily and recommend stopping as this can contribute to worsening constipation
# BL mild ear pain
trial of debrox ear drop to clear ear wax
DVT proph: Eliquis
Code Status: DNR
Dispo-SNF. Medically stable. Awaiting placement. CM aware. [facility] aging agency involved
Anticipated Discharge: Today
Subjective/Interval History
-
Date of Service: March 11, 2024
Objective Data
-
Vital Signs:
Vital Signs
Temp Pulse Resp BP Pulse Ox
36.5 C 72 16 108/73 93
03/11/24 07:00 03/11/24 07:47 03/11/24 07:47 11/02/24 07:00 03/11/24 07:47
I&O
03/10/24 03/11/24 03/12/24
06:59 06:59 05:59
Intake Total 1919
Balance 1919
Review of Systems
-
History Source: Patient
All other systems: Reviewed and negative
Physical Exam
-
General: Well Developed, Well Nourished, Comfortable, Respiratory Distress (chronic), Conversant and Obese
HEENT: Normocephalic, Atraumatic, Moist Mucous Membranes and Oxygen (2L NC)
Respiratory: Clear to Auscultation and Non Labored Respirations; Negative Accessory Resp Muscle Use
Cardiac: Regular Rhythm and S1/S2; Negative Murmur, Rub or JVD
GI: Soft, Nontender, Nondistended and Normal Bowel Sounds
Genito-urinary: No Costovertebral Tender
Musculoskeletal: No Clubbing, No Cyanosis and No Edema
Skin: Warm and Dry; Negative Rash
Neuro: Awake and Alert
Psych: Calm and Intact Judgement/Insight
Data Reviewed
-
Labs: Labs Reviewed by me
--- NOTE | 2024-03-11 11:32 | W.DCSUMMARY ---
Discharge Summary
Discharge Data
Date of Admission: 03/08/24
Date of Discharge: 03/11/24
-
Pending Results: No
Hospital Course
Principal Diagnosis:
Abdominal/rectal pain, suspect related to constipation and hemorrhoids.
Disposition issue.
Chronic Diagnoses:�
Chronic heart failure with preserved ejection fraction
Chronic Hypoxic Respiratory Failure on 2L NC
Permanent Atrial Fibrillation on Eliquis for anticoagulation
Chronic Hypotension on Midodrine
Dyslipidemia on Lipitor
Asthma, on fluticasone/salmeterol
GERD / Peptic Ulcer Disease on Protonix
Consultations:�
None
Procedures:
None
Clinical course:�
This is a 69-year-old female, with past medical history as stated above, who came to the hospital for disposition issues. She disliked her custodial [facility] and was requesting referral to a different facility.
She also complained of mild rectal pain.
Problem 1:
Abdominal/rectal pain, suspect related to constipation and hemorrhoids.
This resolved uneventfully after hydrocortisone suppository treatment for hemorrhoid.
Problem 2:
Disposition issue.
She was discharged to a different custodial at [facility].
As for the rest of her medical problems, they were stable during her hospital stay.
Discharge Plan
-
Patient Disposition: Penitentiary/SNF
Discharge Diagnosis/Procedures: disposition issue
Condition: Fair
Diet: As tolerated, Low Fat, Low Cholesterol and Low Sodium
Activity: As tolerated
Driving Restrictions: Not until seen by your Dr
Blood Work: BMP in 1 week with your PCP
Instructions: *PCP/Other [employer] Heart Failure Instructions
Referrals:
Miguel Evans MD [Family Provider] - in less than 1 week
Additional Discharge Medication Instructions: Continue Lasix 80mg with holding parameter.
Aldactone was decreased from 25 mg to 12.5 mg, continue with holding parameter
Prescriptions:
New
spironolactone 25 mg Tablet
12.5 mg PO DAILY Qty: 30 0RF
Rx Instructions:
hold for SBP < 110
Continued
montelukast 10 mg Tablet
10 mg PO HS
fluticasone propion-salmeterol [Wixela Inhub] 250-50 mcg/dose Blister With Device
2 inh INHALATION R BID
therapeutic multivitamin Tablet
1 tab PO DAILY Qty: 0
midodrine 10 mg tablet
10 mg PO BID
guaifenesin 200 mg Tablet
600 mg PO HS
magnesium hydroxide [Milk of Magnesia] 400 mg/5 mL Suspension
30 ml PO A30HAXT PRN (Reason: no bm 3 days)
bisacodyl [Dulcolax (bisacodyl)] 10 mg Suppository
10 mg RI DAILYPRN PRN (Reason: mom ineffective)
Fleet Enema 19-7 gram/118 mL Enema
118 ml RI DAILYPRN PRN (Reason: if dulcolax ineffective)
docusate sodium 100 mg Capsule
100 mg PO BIDPRN PRN (Reason: constipation)
fluticasone propionate 50 mcg/actuation [place],Suspension
1 spray INTRANASAL BID
Artificial Tears (PF) Dropperette
2 drp BOTH EYES TID
sucralfate 1 gram tablet
1 g PO BID
potassium chloride 20 mEq tablet extended release
40 meq PO TID
atorvastatin [Lipitor] 40 mg Tablet
40 mg PO QPM
cetirizine 10 mg Tablet
10 mg PO HS
acetaminophen 325 mg tablet
650 mg PO Q6HPRN MDD 3000 mg PRN (Reason: mild pain/BURROSW/temp>100.5)
lactulose 20 gram/30 mL solution
20 g PO DAILY
menthol-zinc oxide [Moisture Barrier Ointment] 0.44-20.6 % Ointment
1 applic TOPICAL DAILY
menthol-zinc oxide [Moisture Barrier Ointment] 0.44-20.6 % Ointment
1 applic TOPICAL DAILYPRN PRN (Reason: buttock/sacrum to prevent break down)
polyethylene glycol 3350 [HealthyLax] 17 gram powder in packet
17 g PO BID
sennosides-docusate sodium 8.6-50 mg tablet
2 tab PO BID
pantoprazole 40 mg tablet,delayed release (DR/EC)
40 mg PO BID
gabapentin 300 mg capsule
300 mg PO HS
Eliquis 5 mg tablet
5 mg PO BID
dapagliflozin propanediol 10 mg tablet
10 mg PO DAILY
furosemide [Lasix] 80 mg tablet
80 mg PO BID Qty: 0 0RF
Rx Instructions:
Hold SBP < 110
Discontinued
spironolactone [Aldactone] 25 mg tablet
25 mg PO DAILY
prednisone 10 mg Tablet
10 mg PO DAILY
Rx Instructions:
for 5 days 02/26/24-03/02/24
Discharge Orders:
Discharge Patient (As Directed); Ordered 03/11/24
Ordered By: Preeti Abdul
Discharge Date and Time
Print Language: UKRAINIAN
[2024-03-11 11:59] VITALS: BP 103/55
--- NOTE | 2024-03-13 10:17 | CM ---
Call from [facility] sup Dolly Gauthier requested dispo update
Update provided, they will continue to follow pt
== END 2024-03-11 14:12 | DRG 394 ==
LOC: 3 WEST ACU 11:30
PROVIDERS: Hospitalist; Physician Assistant; Physician Assistant Medical; ADMITTING PHYSICIAN Hospitalist; ATTENDING PHYSICIAN Internal Medicine; EMERGENCY PHYSICIAN Emergency Medicine; FAMILY PHYSICIAN Internal Medicine
DX: K64.9 Unspecified hemorrhoids (principal); I48.21 Permanent atrial fibrillation; I50.32 Chronic diastolic (congestive) heart failure; J96.11 Chronic respiratory failure with hypoxia; Z87.891 Personal history of nicotine dependence; Z66 Do not resuscitate; K59.09 Other constipation; I11.0 Hypertensive heart disease with heart failure; I95.89 Other hypotension; J45.909 Unspecified asthma, uncomplicated; K21.9 Gastro-esophageal reflux disease without esophagitis; K27.9 Peptic ulcer, site unspecified, unspecified as acute or chronic, without hemorrhage or perforation; Z79.01 Long term (current) use of anticoagulants
CPT/HCPCS: 71046; 74177; 80048; 80053; 81003; 83735; 83880; 85025; 87070; 87147; 93005; 94640; 96374; 97163; 97167; 97530; 97535; 99285; Q9967